=== PATIENT | male | born 1950 | race Caucasian/White ===

== ENCOUNTER → 2018-12-25 | Outpatient (CLI) | payer MEDICARE ==
--- NOTE | 2018-12-25 16:37 | XR ---
EXAMINATION TYPE: XR chest 2V DATE OF EXAM: 12/25/2018 COMPARISON: Prior chest x-ray 01/19/2016 HISTORY: Cough and congestion TECHNIQUE: Frontal and lateral views of the chest are obtained. FINDINGS: Patient is post median sternotomy. Heart size may be accentuated by technique. Prominent mil ng volumes suggest underlying COPD. There is bronchial wall thickening. Aorta is dense. No evident ai rspace disease, pneumothorax, or pleural effusion. Thoracic spondylosis is present. IMPRESSION: Correlate for bronchitis, reactive airways disease, follow-up as indicated. Additional f indings above.
== END | disposition home or self-care (01) ==
LOC: RADXRMAIN 13:51
PROVIDERS: ATTEND Internal Medicine
DX: J98.09 Other diseases of bronchus, not elsewhere classified (principal); R05 Cough
CPT/HCPCS: 71046

== ENCOUNTER → 2019-02-05 | Outpatient (CLI) | payer MEDICARE ==
--- NOTE | 2019-02-05 15:17 | XR ---
EXAMINATION TYPE: XR chest 2V DATE OF EXAM: 02/05/2019 COMPARISON: 12/25/2018 TECHNIQUE: PA and lateral views submitted. HISTORY: Shortness of breath FINDINGS: The lungs are clear and there is no pneumothorax, pleural effusion, or focal pneumonia. The heart i s enlarged and is postoperative change with interstitial pattern biapical pleural thickening. Postsur gical change left shoulder. Hypertrophic and degenerative change of the spine. Vague 3 mm nodule left upper lobe. IMPRESSION: 1. Correlate for mild CHF versus interstitial pneumonitis. 2. Vague 3 mm nodule left upper lobe.
== END | disposition home or self-care (01) ==
LOC: RADXRMAIN 14:40
PROVIDERS: ATTEND Internal Medicine
DX: R91.1 Solitary pulmonary nodule (principal); R06.02 Shortness of breath
CPT/HCPCS: 71046

== ENCOUNTER 2019-03-02 16:13 | Inpatient (IN) | payer MEDICARE ==
[2019-03-02] MEDS ORDERED: IPRATROPIUM 0.5 MG/2.5 ML NEBU INHALATION STA (16:30)
[2019-03-02] MEDS ORDERED: ALBUTEROL NEBULIZED 2.5 MG/3 ML INHALATION STA (16:30)
--- NOTE | 2019-03-02 16:38 | ED ---
General Adult HPI - General Chief complaint: Shortness of Breath Stated complaint: TENZIN Time Seen by Provider: 03/02/19 16:30 Source: patient, RN notes reviewed, old records reviewed Mode of arrival: ambulatory Limitations: no limitations - History of Present Illness Initial comments: 68-year-old male presents for evaluation of dyspnea. Patient was sent in by primary care physician for evaluation of dyspnea for the past 5 days. Patient has previous history of aortic valve replacement. Denies chest pain. He has had subjective fever and chills. He does report cough associated with his dyspnea. Denies chest pain. No history of COPD, no history of congestive heart failure. He is currently on Lasix 40 mg daily. He was seen at his primary care office today and sent to the emergency department for further evaluation. No abdominal pain, no nausea vomiting, no diarrhea. - Related Data Home Medications Medication Instructions Recorded Confirmed Cyclobenzaprine [Flexeril] 10 mg PO HS PRN 01/09/15 03/02/19 Insulin Glargine,Hum.rec.anlog 50 unit SQ QAM 01/09/15 03/02/19 [Lantus Solostar] Triamcinolone Acetonide [Nasacort] 1 spray EA NOSTRIL BID 02/06/15 03/02/19 Albuterol Sulfate [Proventil Hfa] 2 puff INHALATION RT-Q4H 03/02/19 03/02/19 Ergocalciferol [Vitamin D2 50,000 unit PO Q7D 03/02/19 03/02/19 (DRISDOL)] Febuxostat [Uloric] 80 mg PO DAILY 03/02/19 03/02/19 Fenofibrate Nanocrystallized 145 mg PO DAILY 03/02/19 03/02/19 [Tricor] Hydrocodone/Acetaminophen [[place] 1 tab PO Q6H 03/02/19 03/02/19 10-325] Metoprolol Succinate [Toprol XL] 50 mg PO BID 03/02/19 03/02/19 Multivitamins, Thera [Multivitamin 1 tab PO DAILY 03/02/19 03/02/19 (formulary)] Omeprazole 20 mg PO DAILY 03/02/19 03/02/19 Potassium Chloride ER [K-Dur 10] 10 meq PO DAILY 03/02/19 03/02/19 Simvastatin [Zocor] 20 mg PO DAILY 03/02/19 03/02/19 Valsartan 320 mg PO DAILY 03/02/19 03/02/19 Valsartan [Diovan] 320 mg PO DAILY 03/02/19 03/02/19 hydrALAZINE HCL [Apresoline] 25 mg PO BID 03/02/19 03/02/19 traMADol HCL [Ultram] 50 mg PO Q6H 03/02/19 03/02/19 Previous Rx's Medication Instructions Recorded glipiZIDE [Glucotrol] 5 mg PO AC-BID tab 02/13/15 Aspirin EC [Ecotrin Low Dose] 162 mg PO DAILY #1 tablet. 02/16/15 Ferrous Sulfate [Iron (65 MG 325 mg PO DAILY #1 tab 02/16/15 Elemental)] Furosemide [Lasix] 40 mg PO DAILY #7 tab 02/16/15 Allergies Allergy/AdvReac Type Severity Reaction Status Date / Time allopurinol Allergy Rash/Hives Verified 03/02/19 16:38 Review of Systems ROS Statement: Those systems with pertinent positive or pertinent negative responses have been documented in the HPI. ROS Other: All systems not noted in ROS Statement are negative. Past Medical History Past Medical History: Cancer, Chest Pain / Angina, CVA/TIA, Diabetes Mellitus, Hyperlipidemia, Hypertension, Myocardial Infarction ([place]), Sleep Apnea/CPAP/BIPAP, Thyroid Disorder Additional Past Medical History / Comment(s): [place] X2, LAST 06/2013. AORTIC STENOSIS. SHORT OF BREATH W/ ACTIVITY. 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 HX KIDNEY FAILURE IN PAST. HX GOUT. NEUROPATHY KIM FEET. USES C-PAP. OVERACTIVE THYROID HX. EDEMA IN LEGS. HX BOWEL RESECTION D/T CA, HAS ILEOSTOMY; HAS IRRITATION AT SITE. Last Myocardial Infarction Date:: 02/2013 History of Any Multi-Drug Resistant Organisms: None Reported Past Surgical History: Bowel Resection, Cardiac Valve Replacement, Heart Catheterization, Hernia Repair, Orthopedic Surgery Additional Past Surgical History / Comment(s): C. CATH X3. LT SHOULDER SURG. BOWEL SURG, SEV SURGERIES. aortic valve replacement 02/06/15 Past Anesthesia/Blood Transfusion Reactions: No Reported Reaction Past Psychological History: Depression Smoking Status: Never smoker Past Alcohol Use History: Occasional Past Drug Use History: Marijuana - Past Family History Mother Family Medical History: Coronary Artery Disease (CAD), Hypertension Father Family Medical History: No Reported History Additional Family Medical History / Comment(s): heart valve disorders General Exam Limitations: no limitations General appearance: alert, in distress Head exam: Present: atraumatic, normocephalic Eye exam: Present: normal appearance, PERRL ENT exam: Present: normal exam Neck exam: Present: normal inspection. Absent: tenderness, meningismus Respiratory exam: Present: respiratory distress, wheezes, rales, accessory muscle use Cardiovascular Exam: Present: normal rhythm, tachycardia GI/Abdominal exam: Present: soft. Absent: distended, tenderness, guarding, rebound Extremities exam: Present: pedal edema Neurological exam: Present: alert, oriented X3 Psychiatric exam: Present: normal affect, normal mood Skin exam: Present: warm, dry, intact. Absent: cyanosis, diaphoretic Course Vital Signs 03/02/19 03/02/19 03/02/19 16:16 16:44 16:59 Temperature 97.5 F L Pulse Rate 67 92 87 Respiratory 34 H Rate Blood Pressure 161/83 O2 Sat by Pulse 80 L Oximetry EKG Findings - EKG Comments: EKG Findings:: EKG: Sinus tachycardia left axis deviation right bundle-branch block, rate of 101, CT interval 188, QRS duration 158, QTC 529, significant change compared to previous EKG in 2015. Medical Decision Making - Medical Decision Making 68-year-old male presenting for evaluation of worsening dyspnea over the past 5 days. Patient has trace edema in the lower extremities, previous history of valve replacement. He's got bilateral wheezing and crackles on lung auscultation. EKG shows right bundle branch block which is new, no chest pain. Patient has normal CBC, no leukocytosis. CMP does show creatinine 2.23 which is elevated above baseline for this patient. He has a BNP of 1000, troponin 0.109. He was placed on BiPAP at the time of presentation. He is given IV Lasix. Case discussed with his primary care physician Dr. Rayo does recommend admission with both cardiology and pulmonology on consult, as well as initiation of heparin. This is related to the emergency department. Echo will be obtained. - Lab Data Result diagrams: 03/02/19 16:33 03/02/19 16:33 Lab Results 03/02/19 03/02/19 03/02/19 Range/Units 16:33 16:33 16:33 WBC 7.7 (3.8-10.6) k/uL RBC 5.25 (4.30-5.90) m/uL Hgb 15.7 (13.0-17.5) gm/dL Hct 46.2 (39.0-53.0) % MCV 88.1 (80.0-100.0) fL MCH 30.0 (25.0-35.0) pg MCHC 34.0 (31.0-37.0) g/dL RDW 13.8 (11.5-15.5) % Plt Count 188 (150-450) k/uL Neutrophils % 80 % Lymphocytes % 10 % Monocytes % 4 % Eosinophils % 1 % Basophils % 1 % Neutrophils # 6.1 (1.3-7.7) k/uL Lymphocytes # 0.8 L (1.0-4.8) k/uL Monocytes # 0.3 (0-1.0) k/uL Eosinophils # 0.1 (0-0.7) k/uL Basophils # 0.1 (0-0.2) k/uL Poikilocytosis Slight PT (9.0-12.0) sec INR (<1.2) APTT (22.0-30.0) sec Sodium 138 (137-145) mmol/L Potassium 3.4 L (3.5-5.1) mmol/L Chloride 101 (98-107) mmol/L Carbon Dioxide 25 (22-30) mmol/L Anion Gap 12 mmol/L BUN 39 H (9-20) mg/dL Creatinine 2.23 H (0.66-1.25) mg/dL Est GFR (CKD-EPI)AfAm 34 (>60 ml/min/1.73 sqM) Est GFR (CKD-EPI)NonAf 30 (>60 ml/min/1.73 sqM) Glucose 62 L (74-99) mg/dL Plasma Lactic Acid Huber (0.7-2.0) mmol/L Calcium 8.7 (8.4-10.2) mg/dL Magnesium 1.7 (1.6-2.3) mg/dL Total Bilirubin 0.9 (0.2-1.3) mg/dL AST 77 H (17-59) U/L ALT 34 (21-72) U/L Alkaline Phosphatase 49 (38-126) U/L Troponin I (0.000-0.034) ng/mL NT-Pro-B Natriuret Pep 1040 pg/mL Total Protein 6.4 (6.3-8.2) g/dL Albumin 3.3 L (3.5-5.0) g/dL 03/02/19 03/02/19 03/02/19 Range/Units 16:33 16:33 16:33 WBC (3.8-10.6) k/uL RBC (4.30-5.90) m/uL Hgb (13.0-17.5) gm/dL Hct (39.0-53.0) % MCV (80.0-100.0) fL MCH (25.0-35.0) pg MCHC (31.0-37.0) g/dL RDW (11.5-15.5) % Plt Count (150-450) k/uL Neutrophils % % Lymphocytes % % Monocytes % % Eosinophils % % Basophils % % Neutrophils # (1.3-7.7) k/uL Lymphocytes # (1.0-4.8) k/uL Monocytes # (0-1.0) k/uL Eosinophils # (0-0.7) k/uL Basophils # (0-0.2) k/uL Poikilocytosis PT 10.7 (9.0-12.0) sec INR 1.0 (<1.2) APTT 28.5 (22.0-30.0) sec Sodium (137-145) mmol/L Potassium (3.5-5.1) mmol/L Chloride (98-107) mmol/L Carbon Dioxide (22-30) mmol/L Anion Gap mmol/L BUN (9-20) mg/dL Creatinine (0.66-1.25) mg/dL Est GFR (CKD-EPI)AfAm (>60 ml/min/1.73 sqM) Est GFR (CKD-EPI)NonAf (>60 ml/min/1.73 sqM) Glucose (74-99) mg/dL Plasma Lactic Acid Huber 2.2 H* (0.7-2.0) mmol/L Calcium (8.4-10.2) mg/dL Magnesium (1.6-2.3) mg/dL Total Bilirubin (0.2-1.3) mg/dL AST (17-59) U/L ALT (21-72) U/L Alkaline Phosphatase (38-126) U/L Troponin I 0.109 H* (0.000-0.034) ng/mL NT-Pro-B Natriuret Pep pg/mL Total Protein (6.3-8.2) g/dL Albumin (3.5-5.0) g/dL Critical Care Time Critical Care Time: Yes Total Critical Care Time: 35 Disposition Clinical Impression: S/P aortic valve replacement, Congestive heart failure Disposition: ADMITTED IP TO THIS [facility] Condition: Stable Is patient prescribed a controlled substance at d/c from ED?: No Referrals: Navdeep Rayo MD [Primary Care Provider] - 1-2 days Decision to Admit Reason: Admit from EC Decision Date: 03/02/19 Decision Time: 17:28
[2019-03-02 16:43] LABS: Basophils # (A) 0.1 k/uL (0-0.2); Basophils % (A) 1 %; Eosinophils # (A) 0.1 k/uL (0-0.7); Eosinophils % (A) 1 %; HCT 46.2 % (39.0-53.0); HGB 15.7 gm/dL (13.0-17.5); Lymphocytes # (A) 0.8 k/uL (1.0-4.8); Lymphocytes % (A) 10 %; MCV 88.1 fL (80.0-100.0); Mean Platelet Volume 8.2; Monocytes # (A) 0.3 k/uL (0-1.0); Monocytes % (A) 4 %; Neutrophils # (A) 6.1 k/uL (1.3-7.7); Neutrophils % (A) 80 %; Platelet Count 188 k/uL (150-450); Poikilocytosis Slight; RBC 5.25 m/uL (4.30-5.90); RDW 13.8 % (11.5-15.5); WBC 7.7 k/uL (3.8-10.6)
[2019-03-02 16:54] LABS: Albumin 3.3 g/dL (3.5-5.0); Calcium 8.7 mg/dL (8.4-10.2); Magnesium 1.7 mg/dL (1.6-2.3); Partial Thromboplastin Time 28.5 sec (22.0-30.0); Potassium 3.4 mmol/L (3.5-5.1); Prothrombin Time 10.7 sec (9.0-12.0); Total Bilirubin 0.9 mg/dL (0.2-1.3); Total Protein 6.4 g/dL (6.3-8.2)
--- NOTE | 2019-03-02 17:02 | XR ---
EXAMINATION: XR chest 1V portable DATE AND TIME: 03/02/2019 4:42 PM CLINICAL INDICATION: PHH; gale TECHNIQUE: AP upright portable chest radiograph COMPARISON: 02/05/2019 FINDINGS: Sternal sutures and mediastinal clips are noted. Moderately enlarged cardiac silhouette redemonstrate d. There is a fine reticular pattern of increased density throughout the lungs, bilaterally silhouetting the pulmonary vasculature. There are also areas of ill-defined airspace opacity in the left mid and lower lung zone. The findings suggest interstitial and alveolar phase pulmonary edema, presumably car diogenic etiology. However, clinical exclusion of multifocal pneumonia will be necessary. The pleural spaces are negative. There are no abnormal gas collections. The skeletal structures and soft tissues are negative for acute findings. IMPRESSION: Radiographic findings suggest pulmonary edema.
[2019-03-02] MEDS ORDERED: FUROSEMIDE 10 MG/ML 4 ML VIAL IV STA (17:21)
[2019-03-02] MEDS ORDERED: ASPIRIN 325 MG TAB PO STA (17:23)
[2019-03-02] MEDS ORDERED: HEPARIN SODIUM,PORCINE 5,000 UNIT/ML 1 ML VIAL IV ONE (17:24)
[2019-03-02] MEDS ORDERED: HEPARIN SODIUM,PORCINE 5,000 UNIT/ML 1 ML VIAL IV PRN (17:24)
[2019-03-02] MEDS ORDERED: ACETAMINOPHEN TAB 325 MG TAB PO PRN (17:29)
[2019-03-02] MEDS ORDERED: NALOXONE 0.4 MG/ML 1 ML VIAL IV PRN (17:29)
[2019-03-02] MEDS: HEPARIN SOD,PORK IN 0.45% NACL 25,000 UNIT in 0.45% NACL 1 250ML.BAG IV SCH (17:55)
[2019-03-02] MEDS ORDERED: DEXTROSE 50% SYRINGE 50 ML IVP ONE (22:35)
[2019-03-02 22:43] LABS: Glucose,Whole Blood 38 mg/dL (75-99)
[2019-03-02 22:55] LABS: Glucose,Whole Blood 72 mg/dL (75-99)
[2019-03-03] MEDS ORDERED: CYCLOBENZAPRINE 10 MG TAB PO PRN (00:57)
[2019-03-03] MEDS ORDERED: traMADol 50 MG TAB PO PRN (01:00)
[2019-03-03] MEDS ORDERED: ERGOCALCIFEROL 50,000 UNIT CAP PO SCH (01:00)
[2019-03-03] MEDS ORDERED: HYDROcodone/APAP 10-325MG 1 EACH TAB PO SCH (01:00)
[2019-03-03] MEDS ORDERED: DEXTROSE 50% SYRINGE 50 ML IVP ONE ×2 (02:02→06:30)
[2019-03-03 02:03] LABS: Glucose,Whole Blood 45 mg/dL (75-99)
[2019-03-03 02:24] LABS: Glucose,Whole Blood 149 mg/dL (75-99)
[2019-03-03] MEDS: ALBUTEROL NEBULIZED 2.5 MG/3 ML INHALATION SCH ×6 (04:14→23:13)
[2019-03-03 04:19] LABS: Basophils # (A) 0.1 k/uL (0-0.2); Basophils % (A) 1 %; Eosinophils # (A) 0.1 k/uL (0-0.7); Eosinophils % (A) 1 %; HCT 43.1 % (39.0-53.0); HGB 14.3 gm/dL (13.0-17.5); Lymphocytes # (A) 1.1 k/uL (1.0-4.8); Lymphocytes % (A) 15 %; MCH 29.7 pg (25.0-35.0); MCHC 33.2 g/dL (31.0-37.0); MCV 89.6 fL (80.0-100.0); Mean Platelet Volume 8.1; Monocytes # (A) 0.4 k/uL (0-1.0); Monocytes % (A) 5 %; Neutrophils % (A) 73 %; Platelet Count 177 k/uL (150-450); Poikilocytosis Slight; RBC 4.81 m/uL (4.30-5.90); RDW 13.9 % (11.5-15.5); WBC 6.9 k/uL (3.8-10.6)
[2019-03-03 06:13] LABS: Glucose,Whole Blood 56 mg/dL (75-99)
[2019-03-03] MEDS: INSULIN ASPART (NovoLOG) 100 UNIT/ML VIAL SQ SCH ×4 (06:17→20:38)
[2019-03-03] MEDS: glipiZIDE 5 MG TAB PO SCH ×2 (06:17→17:17)
[2019-03-03] MEDS: PANTOPRAZOLE 40 MG TABLET PO SCH (06:21)
[2019-03-03 06:52] LABS: Glucose,Whole Blood 97 mg/dL (75-99)
[2019-03-03] MEDS: POTASSIUM CHLORIDE ER 10 MEQ TAB.ER.PRT PO SCH (08:51)
[2019-03-03] MEDS: FUROSEMIDE 10 MG/ML 4 ML VIAL IV SCH ×2 (08:51→20:38)
[2019-03-03] MEDS: MULTIVITAMINS, THERA 1 EACH TAB PO SCH (08:51)
[2019-03-03] MEDS: ATORVASTATIN 10 MG TAB PO SCH (08:52)
[2019-03-03] MEDS: hydrALAZINE HCL 25 MG TAB PO SCH ×2 (08:52→20:38)
[2019-03-03] MEDS: Febuxostat [Uloric] 80 MG PO SCH (08:52)
[2019-03-03] MEDS: FERROUS SULFATE 325 MG TAB PO SCH (08:52)
[2019-03-03] MEDS: FENOFIBRATE 160 MG TAB PO SCH (08:52)
[2019-03-03] MEDS: METOPROLOL SUCCINATE (ER) 50 MG TAB.ER.24H PO SCH ×2 (08:52→20:38)
[2019-03-03] MEDS: ERGOCALCIFEROL 50,000 UNIT CAP PO SCH (08:53)
[2019-03-03] MEDS ORDERED: VALSARTAN 320 MG PO SCH (09:00)
[2019-03-03] MEDS ORDERED: VALSARTAN 160 MG TAB PO SCH (09:00)
[2019-03-03] MEDS: FLUTICASONE 50MCG/SPRAY NASAL 16GM EA NOSTRIL SCH ×2 (09:04→20:37)
[2019-03-03 09:28] LABS: Albumin 2.8 g/dL (3.5-5.0); Calcium 8.3 mg/dL (8.4-10.2); Potassium 3.5 mmol/L (3.5-5.1); Total Bilirubin 0.6 mg/dL (0.2-1.3); Total Protein 5.5 g/dL (6.3-8.2)
--- NOTE | 2019-03-03 10:29 | P.HPIM ---
History of Present Illness H&P Date: 03/03/19 This is a 68-year-old male patient who presented to the ER with complaints of increased shortness of breath for the past 5 days. Patient reports that he has been coughing. Patient denies fever. Patient has a past medical history of aortic valve replacement thousand [address] Styles, chest pain, CVA, diabetes mellitus, hyperlipidemia, hypertension, myocardial infarction, sleep apnea requiring CPAP and hypothyroidism. Chest x-ray completed showing radiographic findings suggest pulmonary edema. BNP elevated at 1040. Troponins also elevated 0.105, 0.096. EKG completed showing sinus tachycardia with premature atrial complexes. Left axis deviation. Patient started on heparin drip. Patient also started on IV Lasix 40 mg every 12 hours. Patient's creatinine elevated 2.41 and bun 43. Pulmonary, cardiology and nephrology services have been consulted. At this time patient is still complaining of shortness breath. 2-D echo has been ordered. Patient denies chest pain. Patient denies nausea vomiting or diarrhea. Patient denies any urinary burning or frequency. Review of Systems please refer to HPI otherwise unremarkable Past Medical History Past Medical History: Cancer, Chest Pain / Angina, CVA/TIA, Diabetes Mellitus, Hyperlipidemia, Hypertension, Myocardial Infarction ([place]), Sleep Apnea/CPAP/BIPAP, Thyroid Disorder Additional Past Medical History / Comment(s): [place] X2, LAST 06/2013. AORTIC STENOSIS. = SHORT OF BREATH W/ ACTIVITY. 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 HX KIDNEY FAILURE IN PAST. HX GOUT. NEUROPATHY KIM FEET. USES C-PAP. OVERACTIVE THYROID HX. EDEMA IN LEGS. HX BOWEL RESECTION D/T CA, HAS ILEOSTOMY, IRRITATION AT SITE. Last Myocardial Infarction Date:: 02/2013 History of Any Multi-Drug Resistant Organisms: None Reported Past Surgical History: Bowel Resection, Cardiac Valve Replacement, Heart Catheterization, Hernia Repair, Orthopedic Surgery Additional Past Surgical History / Comment(s): CARDIAC CATH X3. LT SHOULDER SURG. BOWEL SURG,. aortic valve replacement 02/06/15 Past Anesthesia/Blood Transfusion Reactions: No Reported Reaction Past Psychological History: Depression Smoking Status: Never smoker Past Alcohol Use History: Occasional Past Drug Use History: None Reported - Past Family History Mother Family Medical History: Coronary Artery Disease (CAD), Hypertension Father Family Medical History: No Reported History Additional Family Medical History / Comment(s): heart valve disorders Medications and Allergies Home Medications Medication Instructions Recorded Confirmed Type Cyclobenzaprine [Flexeril] 10 mg PO HS PRN 01/09/15 03/02/19 History Insulin Glargine,Hum.rec.anlog 50 unit SQ QAM 01/09/15 03/02/19 History [Lantus Solostar] Triamcinolone Acetonide [Nasacort] 1 spray EA NOSTRIL BID 02/06/15 03/02/19 History glipiZIDE [Glucotrol] 5 mg PO AC-BID tab 02/13/15 03/02/19 Rx Aspirin EC [Ecotrin Low Dose] 162 mg PO DAILY #1 tablet.dr 02/16/15 03/02/19 Rx Ferrous Sulfate [Iron (65 MG 325 mg PO DAILY #1 tab 02/16/15 03/02/19 Rx Elemental)] Furosemide [Lasix] 40 mg PO DAILY #7 tab 02/16/15 03/02/19 Rx Albuterol Sulfate [Proventil Hfa] 2 puff INHALATION RT-Q4H 03/02/19 03/02/19 History Ergocalciferol [Vitamin D2 50,000 unit PO Q7D 03/02/19 03/02/19 History (MELVIN)] Febuxostat [Uloric] 80 mg PO DAILY 03/02/19 03/02/19 History Fenofibrate Nanocrystallized 145 mg PO DAILY 03/02/19 03/02/19 History [Tricor] Hydrocodone/Acetaminophen [[place] 1 tab PO Q6H 03/02/19 03/02/19 History 10-325] Metoprolol Succinate [Toprol XL] 50 mg PO BID 03/02/19 03/02/19 History Multivitamins, Thera [Multivitamin 1 tab PO DAILY 03/02/19 03/02/19 History (formulary)] Omeprazole 20 mg PO DAILY 03/02/19 03/02/19 History Potassium Chloride ER [K-Dur 10] 10 meq PO DAILY 03/02/19 03/02/19 History Simvastatin [Zocor] 20 mg PO DAILY 03/02/19 03/02/19 History Valsartan [Diovan] 320 mg PO DAILY 03/02/19 03/02/19 History hydrALAZINE HCL [Apresoline] 25 mg PO BID 03/02/19 03/02/19 History traMADol HCL [Ultram] 50 mg PO Q6H 03/02/19 03/02/19 History Allergies Allergy/AdvReac Type Severity Reaction Status Date / Time allopurinol Allergy Rash/Hives Verified 03/02/19 16:38 Physical Exam Vitals: Vital Signs Temp Pulse Pulse Resp BP BP Pulse Ox 03/03/19 08:00 68 22 134/77 92 L 03/03/19 04:34 87 03/03/19 04:15 87 03/03/19 03:09 97.3 F L 81 32 H 149/80 96 03/02/19 23:45 98.2 F 83 28 H 147/81 97 03/02/19 21:32 97.9 F 75 28 H 114/75 96 03/02/19 20:09 75 30 H 116/78 96 03/02/19 19:15 89 28 H 130/80 96 03/02/19 18:16 87 26 H 90/57 94 L 03/02/19 17:24 116/90 03/02/19 16:59 87 03/02/19 16:44 92 03/02/19 16:16 97.5 F L 67 34 H 161/83 80 L Intake and Output 03/02/19 03/03/19 03/03/19 22:59 06:59 14:59 Intake Total 106.323 Output Total 400 Balance -293.677 Intake: Intake, IV Titration 106.323 Amount Heparin Sod,Pork in 0.45% 106.323 NaCl 25,000 unit In 0.45 % NaCl 1 250ml.bag @ 7. 735 UNITS/KG/HR 9.999 mls /hr IV .Q24H [facility] Rx#: [id number] Output: Urine 400 Other: Voiding Method Urinal # Voids 2 Weight 129.274 kg 121 kg Head normocephalic Neck supple Lungs diminished bilaterally Heart regular rate and rhythm S1-S2, no rub or gallop Abdomen is soft nontender nondistended positive bowel sounds no hepatosple nomegaly Extremities no edema. billateral lower extremity erythema Neuro alert and orientated to 3 Results CBC & Chem 7: 03/03/19 04:01 03/03/19 04:01 Labs: Abnormal Lab Results - Last 24 Hours (Table) 03/02/19 03/02/19 03/02/19 Range/Units 16:33 16:33 16:33 Lymphocytes # 0.8 L (1.0-4.8) k/uL APTT (22.0-30.0) sec Potassium 3.4 L (3.5-5.1) mmol/L BUN 39 H (9-20) mg/dL Creatinine 2.23 H (0.66-1.25) mg/dL Glucose 62 L (74-99) mg/dL POC Glucose (mg/dL) (75-99) mg/dL Plasma Lactic Acid Huber (0.7-2.0) mmol/L Calcium (8.4-10.2) mg/dL AST 77 H (17-59) U/L Troponin I 0.109 H* (0.000-0.034) ng/mL Total Protein (6.3-8.2) g/dL Albumin 3.3 L (3.5-5.0) g/dL 03/02/19 03/02/19 03/02/19 Range/Units 16:33 22:34 22:45 Lymphocytes # (1.0-4.8) k/uL APTT (22.0-30.0) sec Potassium (3.5-5.1) mmol/L BUN (9-20) mg/dL Creatinine (0.66-1.25) mg/dL Glucose (74-99) mg/dL POC Glucose (mg/dL) 38 L (75-99) mg/dL Plasma Lactic Acid Huber 2.2 H* (0.7-2.0) mmol/L Calcium (8.4-10.2) mg/dL AST (17-59) U/L Troponin I 0.105 H* (0.000-0.034) ng/mL Total Protein (6.3-8.2) g/dL Albumin (3.5-5.0) g/dL 03/02/19 03/03/19 03/03/19 Range/Units 22:53 02:00 02:22 Lymphocytes # (1.0-4.8) k/uL APTT (22.0-30.0) sec Potassium (3.5-5.1) mmol/L BUN (9-20) mg/dL Creatinine (0.66-1.25) mg/dL Glucose (74-99) mg/dL POC Glucose (mg/dL) 72 L 45 L 149 H (75-99) mg/dL Plasma Lactic Acid Huber (0.7-2.0) mmol/L Calcium (8.4-10.2) mg/dL AST (17-59) U/L Troponin I (0.000-0.034) ng/mL Total Protein (6.3-8.2) g/dL Albumin (3.5-5.0) g/dL 03/03/19 03/03/19 03/03/19 Range/Units 04:01 04:01 04:01 Lymphocytes # (1.0-4.8) k/uL APTT 42.0 H (22.0-30.0) sec Potassium (3.5-5.1) mmol/L BUN 43 H (9-20) mg/dL Creatinine 2.41 H (0.66-1.25) mg/dL Glucose 73 L (74-99) mg/dL POC Glucose (mg/dL) (75-99) mg/dL Plasma Lactic Acid Huber (0.7-2.0) mmol/L Calcium 8.3 L (8.4-10.2) mg/dL AST 80 H (17-59) U/L Troponin I 0.096 H* (0.000-0.034) ng/mL Total Protein 5.5 L (6.3-8.2) g/dL Albumin 2.8 L (3.5-5.0) g/dL 03/03/19 Range/Units 06:11 Lymphocytes # (1.0-4.8) k/uL APTT (22.0-30.0) sec Potassium (3.5-5.1) mmol/L BUN (9-20) mg/dL Creatinine (0.66-1.25) mg/dL Glucose (74-99) mg/dL POC Glucose (mg/dL) 56 L (75-99) mg/dL Plasma Lactic Acid Huber (0.7-2.0) mmol/L Calcium (8.4-10.2) mg/dL AST (17-59) U/L Troponin I (0.000-0.034) ng/mL Total Protein (6.3-8.2) g/dL Albumin (3.5-5.0) g/dL Thrombosis Risk Factor Assmnt - Choose All That Apply Any of the Below Risk Factors Present?: Yes Each Factor Represents 1 point: Heart failure (<1month), Medical pt on bed rest, Obesity (BMI >25) Other Risk Factors: Yes Each Risk Factor Represents 2 Points: Age 61-74 years Each Risk Factor Represents 3 Points: History of DVT/PE Other congenital or acquired thrombophilia - If yes, enter type in comment: No Thrombosis Risk Factor Assessment Total Risk Factor Score: 8 Thrombosis Risk Factor Assessment Level: High Risk Assessment and Plan Assessment: 1. Increased shortness of breath related to CHF exacerbation. Chest x-ray completed showing radiographic findings suggest pulmonary edema. 2-D echo ordered. Cardiology service is consulted 2. Elevated troponins. Initial troponin 0.105, 0.096. Cardiology services have been consulted. 3. Acute kidney injury. Creatinine elevated 2.41 bun 43. Nephrology services have been consulted. 4. Diabetes mellitus type 2. scale insulin ordered. 5. History of aortic valve replacement in 2014 6. History of CVA 7. History of hyperlipidemia 8. History of essential hypertension 9. History of sleep apnea requiring CPAP machine at home 10. Bilateral lower extremity erythema DVT prophylaxis heparin gtt. GI prophylaxis protonix Time with Patient: Greater than 30 (Greater than 60% of the total time spent in counseling and coordination of care. I performed an examination of the patient and discussed their management with the Nurse Practitioner. I have reviewed the Nurse Practitioner's notes and agree with the documented findings and plan of care)
--- NOTE | 2019-03-03 11:39 | CDI ---
Documentation Clarification Form Date: 03/03/2019 11:09:29 AM From: Liana Fairbanks RN CCDS Admit Date: 03/02/2019 5:29:00 PM Patient Name: Faisal Andrade Visit Number: [id number] Discharge Date: ATTENTION: The Clinical Documentation Specialists (CDI) and [facility] Coding Staff appreciate your assistance in clarifying documentation. Please respond to the clarification below the line at the bottom and electronically sign. The CDI & [facility] Coding staff will review the response and follow-up if needed. Please note: Queries are made part of the Legal Health Record. If you have any questions, please contact the author of this message via ITS. Dr. Navdeep Rayo The patient presented with increased shortness of breath. History/Risk Factors: 68 year old male presents to the ED with increased shortness of breath for the past 5 days. Medical history Aortic Valve replacement 2014; Chest pain, CVA, DM, Hyperlipidemia , HTN, [place] , Sleep Apnea requiring CPAP; Clinical Indicators: CXR Pulmonary Edema Vital signs: 161/83 67 97.5 34 80% room air. Lung/Breathing assessment: diminished bilaterally Lactic acid 2.2, Treatment: Breathing tx Ventolin, Atrovent Oxygen: BiPap In your professional opinion, can you please clarify if these findings signify one of the following conditions? * Acute Respiratory Failure With hypoxia? (pO2 <60 mm Hg or SpO2 <91% on room air * Other Diagnosis, please specify * Unable to determine (Last Revision: January 2018) acute hypoxic respiratory failure MTDD
[2019-03-03 12:01] LABS: Glucose,Whole Blood 178 mg/dL (75-99)
--- NOTE | 2019-03-03 12:07 | ECHOF ---
Referral Reason:CHF MEASUREMENTS -------- HEIGHT: 167.6 cm WEIGHT: 120.7 kg BP: 149/80 RVIDd: 4.9 cm (< 3.3) IVSd: 1.7 cm (0.6 - 1.1) LVIDd: 4.3 cm (3.9 - 5.3) LVPWd: 1.4 cm (0.6 - 1.1) IVSs: 2.0 cm LVIDs: 3.1 cm LVPWs: 2.0 cm Ao Diam: 2.0 cm (2.0 - 3.7) LA Diam: 6.7 cm (2.7 - 3.8) MV EXCURSION: 10.516 mm (> 18.000) MV EF SLOPE: 56 mm/s (70 - 150) EPSS: 0.5 cm MV E Morales: 1.32 m/s MV DecT: 323 ms MV A Morales: 1.14 m/s MV E/A Ratio: 1.18 AV maxP.50 mmHg AV meanP.45 mmHg RAP: 15.00 mmHg RVSP: 84.64 mmHg FINDINGS -------- Undetermined rhythm. This was a techncally difficult study with suboptimal views, , Lumason utilized for enhancement of im ages. The left ventricular size is normal. There is mild concentric left ventricular hypertrophy. Overa ll left ventricular systolic function is low-normal with, an EF between 50 - 55 %. The right ventricle is severely enlarged. The right ventricular septal wall is flattened in diastol e and systole which is consistent with right ventricular volume and pressure overload. The left atrium is markedly dilated. The right atrial size is normal. 5.0mg OF Lumason UTLIZED: 2 OR MORE WALL SEGMENTS NOT VISUALIZED. Peak/mean gradient across the Aortic Valve is 28.50mmHg / 15.45mmHg. Bioprosthetic Aortic Valve. Mild mitral annular calcification present. Mild mitral regurgitation is present. The peak and me an MV gradients are 12.78mmHg 5.47mmHg as measured by doppler. The aortic root size is normal. Normal inferior vena cava with normal inspiratory collapse consistent with estimated right atrial pre ssure of 5 mmHg. There is no pericardial effusion. CONCLUSIONS -------- 1. This was a techncally difficult study with suboptimal views, , Lumason utilized for enhancement of images. 2. The left ventricular size is normal. 3. There is mild concentric left ventricular hypertrophy. 4. Overall left ventricular systolic function is low-normal with, an EF between 50 - 55 %. 5. The right ventricle is severely enlarged. 6. The right ventricular septal wall is flattened in diastole and systole which is consistent with r ight ventricular volume and pressure overload. 7. The left atrium is markedly dilated. 8. The right atrial size is normal. 9. 5.0mg OF Lumason UTLIZED: 2 OR MORE WALL SEGMENTS NOT VISUALIZED. 10. Interatrial Septum not well visulized. 11. Peak/mean gradient across the Aortic Valve is 28.50mmHg / 15.45mmHg. 12. Bioprosthetic Aortic Valve. 13. Mild mitral annular calcification present. 14. Mild mitral regurgitation is present. 15. The peak and mean MV gradients are 12.78mmHg 5.47mmHg as measured by doppler. 16. The aortic root size is normal. 17. Normal inferior vena cava with normal inspiratory collapse consistent with estimated right atrial pressure of 5 mmHg. 18. There is no pericardial effusion. OFFICIAL GREETER: Darlene Rod RDCS
--- NOTE | 2019-03-03 12:14 | P.CRDCN ---
History of Present Illness Consult date: 03/03/19 Requesting physician: Navdeep Rayo Consult reason: hypertension, shortness of breath Chief complaint: Shortness of breath History of present illness: This is a 68-year-old gentleman with history of aortic valve replacement in 2014, prior CVA, diabetes, hypertension, hyperlipidemia, prior CVA, sleep apnea requiring CPAP, hypothyroidism, who presents to the hospital with symptoms of progressively worsening shortness of breath over a three-week duration. According to the patient, his blood pressure has been running very high as an outpatient, initially his symptoms started with cough and his CY inhibitor was discontinued. Patient was then started on 2 different blood pressure medications, on follow-up with his physician, he stated that his breathing was consistently becoming worse, he came to the emergency room then for further evaluation and treatment. Chest x-ray on arrival here showed pulmonary edema, and multifocal pneumonia possible. EKG on presentation here showed a sinus tachycardia with a right bundle branch block pattern and nonspecific ST-T wave changes. Blood pressure on arrival here 160/80 with a heart rate in the 60s, respirations 34, 80% on room air. White blood cell count 6.9, hemoglobin 14.3, platelet count 177. Sodium 139, potassium 3.5, BUN 43 and creatinine 2.4. Patient's creatinine yesterday 2.2, in 2016 0.9. Troponins 0.10, 0.10, 0.09. Past Medical History Past Medical History: Cancer, Chest Pain / Angina, CVA/TIA, Diabetes Mellitus, Hyperlipidemia, Hypertension, Myocardial Infarction (SD), Sleep Apnea/CPAP/BIPAP, Thyroid Disorder Additional Past Medical History / Comment(s): SD X2, LAST 06/2013. AORTIC STENOSIS. = SHORT OF BREATH W/ ACTIVITY. 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 HX KIDNEY FAILURE IN PAST. HX GOUT. NEUROPATHY KIM FEET. USES C-PAP. OVERACTIVE THYROID HX. EDEMA IN LEGS. HX BOWEL RESECTION D/T CA, HAS ILEOSTOMY, IRRITATION AT SITE. Last Myocardial Infarction Date:: 02/2013 History of Any Multi-Drug Resistant Organisms: None Reported Past Surgical History: Bowel Resection, Cardiac Valve Replacement, Heart Catheterization, Hernia Repair, Orthopedic Surgery Additional Past Surgical History / Comment(s): CARDIAC CATH X3. LT SHOULDER SURG. BOWEL SURG,. aortic valve replacement 02/06/15 Past Anesthesia/Blood Transfusion Reactions: No Reported Reaction Past Psychological History: Depression Smoking Status: Never smoker Past Alcohol Use History: Occasional Past Drug Use History: None Reported - Past Family History Mother Family Medical History: Coronary Artery Disease (CAD), Hypertension Father Family Medical History: No Reported History Additional Family Medical History / Comment(s): heart valve disorders Medications and Allergies Home Medications Medication Instructions Recorded Confirmed Type Cyclobenzaprine [Flexeril] 10 mg PO HS PRN 01/09/15 03/02/19 History Insulin Glargine,Hum.rec.anlog 50 unit SQ QAM 01/09/15 03/02/19 History [Lantus Solostar] Triamcinolone Acetonide [Nasacort] 1 spray EA NOSTRIL BID 02/06/15 03/02/19 History glipiZIDE [Glucotrol] 5 mg PO AC-BID tab 02/13/15 03/02/19 Rx Aspirin EC [Ecotrin Low Dose] 162 mg PO DAILY #1 tablet.dr 02/16/15 03/02/19 Rx Ferrous Sulfate [Iron (65 MG 325 mg PO DAILY #1 tab 02/16/15 03/02/19 Rx Elemental)] Furosemide [Lasix] 40 mg PO DAILY #7 tab 02/16/15 03/02/19 Rx Albuterol Sulfate [Proventil Hfa] 2 puff INHALATION RT-Q4H 03/02/19 03/02/19 History Ergocalciferol [Vitamin D2 50,000 unit PO Q7D 03/02/19 03/02/19 History (MELVIN)] Febuxostat [Uloric] 80 mg PO DAILY 03/02/19 03/02/19 History Fenofibrate Nanocrystallized 145 mg PO DAILY 03/02/19 03/02/19 History [Tricor] Hydrocodone/Acetaminophen [[place] 1 tab PO Q6H 03/02/19 03/02/19 History 10-325] Metoprolol Succinate [Toprol XL] 50 mg PO BID 03/02/19 03/02/19 History Multivitamins, Thera [Multivitamin 1 tab PO DAILY 03/02/19 03/02/19 History (formulary)] Omeprazole 20 mg PO DAILY 03/02/19 03/02/19 History Potassium Chloride ER [K-Dur 10] 10 meq PO DAILY 03/02/19 03/02/19 History Simvastatin [Zocor] 20 mg PO DAILY 03/02/19 03/02/19 History Valsartan [Diovan] 320 mg PO DAILY 03/02/19 03/02/19 History hydrALAZINE HCL [Apresoline] 25 mg PO BID 03/02/19 03/02/19 History traMADol HCL [Ultram] 50 mg PO Q6H 03/02/19 03/02/19 History Allergies Allergy/AdvReac Type Severity Reaction Status Date / Time allopurinol Allergy Rash/Hives Verified 03/02/19 16:38 Physical Exam Vitals: Vital Signs Temp Pulse Pulse Resp BP BP Pulse Ox 03/03/19 11:45 88 03/03/19 11:34 84 03/03/19 08:00 68 22 134/77 92 L 03/03/19 04:34 87 03/03/19 04:15 87 03/03/19 03:09 97.3 F L 81 32 H 149/80 96 03/02/19 23:45 98.2 F 83 28 H 147/81 97 03/02/19 21:32 97.9 F 75 28 H 114/75 96 03/02/19 20:09 75 30 H 116/78 96 03/02/19 19:15 89 28 H 130/80 96 03/02/19 18:16 87 26 H 90/57 94 L 03/02/19 17:24 116/90 03/02/19 16:59 87 03/02/19 16:44 92 03/02/19 16:16 97.5 F L 67 34 H 161/83 80 L Intake and Output 03/02/19 03/03/19 03/03/19 22:59 06:59 14:59 Intake Total 106.323 Output Total 400 300 Balance -293.677 -300 Intake: Intake, IV Titration 106.323 Amount Heparin Sod,Pork in 0.45% 106.323 NaCl 25,000 unit In 0.45 % NaCl 1 250ml.bag @ 7. 735 UNITS/KG/HR 9.999 mls /hr IV .Q24H [facility] Rx#: [id number] Output: Urine 400 Stool 300 Other: Voiding Method Urinal # Voids 2 # Bowel Movements 1 Weight 129.274 kg 121 kg 121 kg PHYSICAL EXAMINATION: GENERAL: 68-year-old gentleman in no acute distress at the time of my examination HEENT: Head is atraumatic, normocephalic. Pupils equal, round. Sclera anicteric. Conjunctiva are clear. Mucous membranes of the mouth are moist. Neck is supple. There is elevated jugular venous pressure. No carotid bruit is heard. HEART EXAMINATION: Heart S1 and S2, tachycardic, systolic murmur heard CHEST EXAMINATION: Lungs reveal decreased air exchange throughout, minimal air entry ABDOMEN: Soft, obese, nontender. Bowel sounds are heard. No organomegaly noted. EXTREMITIES: 1+ peripheral pulses with trace evidence of peripheral edema, bilateral ear erythema, chronic venous stasis. NEUROLOGIC patient is awake, alert and oriented 3 . . Results 03/04/19 05:35 03/04/19 05:35 Cardiac Enzymes 03/02/19 03/02/19 03/02/19 Range/Units 16:33 16:33 22:45 AST 77 H (17-59) U/L Troponin I 0.109 H* 0.105 H* (0.000-0.034) ng/mL 03/03/19 03/03/19 Range/Units 04:01 04:01 AST 80 H (17-59) U/L Troponin I 0.096 H* (0.000-0.034) ng/mL Coagulation 03/02/19 03/03/19 03/03/19 Range/Units 16:33 04:01 11:02 PT 10.7 (9.0-12.0) sec APTT 28.5 42.0 H 43.5 H (22.0-30.0) sec CBC 03/02/19 03/03/19 Range/Units 16:33 04:01 WBC 7.7 6.9 (3.8-10.6) k/uL RBC 5.25 4.81 (4.30-5.90) m/uL Hgb 15.7 14.3 (13.0-17.5) gm/dL Hct 46.2 43.1 (39.0-53.0) % Plt Count 188 177 (150-450) k/uL Comprehensive Metabolic Panel 03/02/19 03/03/19 Range/Units 16:33 04:01 Sodium 138 139 (137-145) mmol/L Potassium 3.4 L 3.5 (3.5-5.1) mmol/L Chloride 101 102 (98-107) mmol/L Carbon Dioxide 25 28 (22-30) mmol/L BUN 39 H 43 H (9-20) mg/dL Creatinine 2.23 H 2.41 H (0.66-1.25) mg/dL Glucose 62 L 73 L (74-99) mg/dL Calcium 8.7 8.3 L (8.4-10.2) mg/dL AST 77 H 80 H (17-59) U/L ALT 34 38 (21-72) U/L Alkaline Phosphatase 49 46 (38-126) U/L Total Protein 6.4 5.5 L (6.3-8.2) g/dL Albumin 3.3 L 2.8 L (3.5-5.0) g/dL Current Medications Generic Name Dose Route Start Last Admin Trade Name Freq PRN Reason Stop Dose Admin Acetaminophen 650 mg 03/02/19 17:29 Tylenol Tab PO Q6HR PRN Mild Pain or Fever > 100.5 Hydrocodone Bitart/Acetaminophen 1 each 03/03/19 01:14 [place] 10 PO Q6H PRN Mild to Moderate Pain Albuterol Sulfate 2.5 mg 03/03/19 04:00 03/03/19 11:33 Ventolin Nebulized INHALATION 2.5 mg RT-Q4H JOSE Administration Atorvastatin Calcium 10 mg 03/03/19 09:00 03/03/19 08:52 Lipitor PO 10 mg DAILY JOSE Administration Cyclobenzaprine HCl 10 mg 03/03/19 00:57 Flexeril PO HS PRN Muscle Pain Ergocalciferol 50,000 unit 03/03/19 09:00 03/03/19 08:53 Vitamin D2 PO Not Given Q7D JOSE Fenofibrate 160 mg 03/03/19 09:00 03/03/19 08:52 Lofibra PO 160 mg DAILY JOSE Administration Ferrous Sulfate 325 mg 03/03/19 09:00 03/03/19 08:52 Feosol PO 325 mg DAILY JOSE Administration Fluticasone Propionate 1 spray 03/03/19 09:00 03/03/19 09:04 Flonase Nasal [place]ar[place] EA NOSTRIL Not Given BID JOSE Furosemide 40 mg 03/03/19 09:00 03/03/19 08:51 Lasix IV 40 mg Q12HR JOSE Administration Glipizide 5 mg 03/03/19 07:30 03/03/19 06:17 Glucotrol PO Not Given AC-BID JOSE Heparin Sodium (Porcine) 0 unit 03/02/19 17:24 Heparin IV PER PROTOCOL PRN Low PTT Protocol Hydralazine HCl 25 mg 03/03/19 09:00 03/03/19 08:52 Apresoline PO 25 mg BID JOSE Administration Heparin Sodium/Sodium Chloride 250 mls @ 9.999 mls/hr 03/02/19 17:30 03/03/19 04:33 25,000 unit/ Sodium Chloride IV 9.735 units/kg/hr .Q24H JOSE 12.585 mls/hr Titration Protocol 7.735 UNITS/KG/HR Insulin Aspart 0 unit 03/03/19 07:30 03/03/19 06:17 Novolog SQ Not Given ACHS [facility] Protocol Metoprolol Succinate 50 mg 03/03/19 09:00 03/03/19 08:52 Toprol Xl PO 50 mg BID JOSE Administration Multivitamins 1 each 03/03/19 09:00 03/03/19 08:51 Theragran PO 1 each DAILY [facility] Administration Naloxone HCl 0.2 mg 03/02/19 17:29 Narcan IV Q2M PRN Opioid Reversal Febuxostat [Uloric] 80 mg 03/03/19 09:00 03/03/19 08:52 80 Mg PO Not Given DAILY JOSE Pantoprazole Sodium 40 mg 03/03/19 07:30 03/03/19 06:21 Protonix PO 40 mg DAILY@0730 JOSE Administration Potassium Chloride 10 meq 03/03/19 09:00 03/03/19 08:51 K-Dur 10 PO 10 meq DAILY JOSE Administration Tramadol HCl 50 mg 03/03/19 01:00 Ultram PO Q6H PRN Pain Intake and Output 03/02/19 03/03/19 03/03/19 22:59 06:59 14:59 Intake Total 106.323 Output Total 400 300 Balance -293.677 -300 Intake: Intake, IV Titration 106.323 Amount Heparin Sod,Pork in 0.45% 106.323 NaCl 25,000 unit In 0.45 % NaCl 1 250ml.bag @ 7. 735 UNITS/KG/HR 9.999 mls /hr IV .Q24H [facility] Rx#: [id number] Output: Urine 400 Stool 300 Other: Voiding Method Urinal # Voids 2 # Bowel Movements 1 Weight 129.274 kg 121 kg 121 kg Patient Weight 03/04/19 06:59 Weight 121 kg 03/03/19 04:01 03/03/19 04:01 EKG Interpretations (text) EKG shows sinus tachycardia with a right bundle branch block pattern and nonspecific ST-T wave changes Assessment and Plan Plan: Assessment and plan #1 symptoms of progressively worsening shortness of breath, chest x-ray suggests pulmonary edema, CHF exacerbation diastolic acute on chronic, on IV Lasix #2 acute kidney injury, creatinine 2.4, nephrology consulted #3 diabetes #4 history of aortic valve replacement #5 hypertension #6 hyperlipidemia #7 sleep apnea #8 abnormal troponins, could be secondary to abnormal renal function, and hypoxia, no significant rise and fall pattern to suggest acute coronary syndrome Plan We will obtain an echocardiogram with Doppler study. Because of the patient's abnormality in troponin, with associated tachycardia and hypoxia on presentation, we will request a d-dimer to rule out the possibility of pulmonary embolism. Continue IV Lasix. We will also attempt to get some old records, patient states he has not seen Dr. Bolaños in the office for several years. DNP note has been reviewed, I agree with a documented findings and plan of care. Patient was seen and examined.
--- NOTE | 2019-03-03 14:45 | P.CNPUL ---
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 Patient does have some baseline shortness of breath, however since last he is been experiencing increased difficulty breathing, denied any chest pain, he states his blood pressure has been elevated and Dr. Rayo has been making adjustments to his blood pressure medications, he was recently taken off the lisinopril related to dry cough and was started on h ydralazine. He denies any weight gain, has chronic lower extremity edema, with chronic and changes, dry skin, with the dry patches present on lower legs. He states he did feel feverish but did not take his temperature, his appetite has been poor, and he has had decreased oral intake, he wasn't feeling hungry. He states he used to see Dr. Bolaños however have not seen him in the last 2 years. Additionally patient stopped taking his Lasix about a month ago related to frequent trips to the bathroom, and was recently restarted on it by Dr. Rayo. Chest x-ray was completed showing findings of pulmonary edema. EKG showed sinus tachycardia with PACs and right bundle branch block, ST depression and T-wave inversion in the inferior and lateral leads. Lab work did not show any leukocytosis, white blood cell, 6.9, hemoglobin of 14.3, d-dimer was mildly elevated at 1.48, electrolytes were within normal limits, renal profile was abnormal with BUN of 43 and creatinine of 2.41, and it had been within normal limits on previous blood work 2015. Mild elevation of troponins at 0.109, 0.105, 0.096, and proBNP 1040. Repeat BNP this morning down to 787. During my evaluation patient is seen sitting up on the edge of the bed, he is quite short of breath even with conversation, on 4 L of oxygen with a pulse ox of 94%, he did wear BiPAP support last night pressures of 10 and 5, and FiO2 of 40%, normally wears a CPAP device at home and he thinks the pressure is around 20 cm of water with no inflow oxygen. Afebrile, he is tachypneic, hemodynamically patient is stable. Echocardiogram was completed and showed low normal EF between 50 and 55% severe enlargement of the right ventricle, and severe volume and pressure overload in the right ventricle, bioprosthetic aortic valve, mild mitral regurgitation. Patient was started on IV Lasix at 40 mg every 12 hours, breathing treatments, heparin drip per weight-based protocol. Review of Systems All systems: negative Constitutional: Reports weakness, Denies chills, Denies fever Eyes: denies blurred vision, denies pain Ears, nose, mouth and throat: Denies headache, Denies sore throat Cardiovascular: Reports decreased exercise tolerance, Reports dyspnea on exertion, Reports edema, Reports high blood pressure, Reports leg edema, Denies chest pain, Denies shortness of breath Respiratory: Reports dyspnea, Denies cough Gastrointestinal: Denies abdominal pain, Denies diarrhea, Denies nausea, Denies vomiting Musculoskeletal: Denies myalgias Integumentary: Denies pruritus, Denies rash Neurological: Denies numbness, Denies weakness Psychiatric: Denies anxiety, Denies depression Endocrine: Denies fatigue, Denies weight change Past Medical History Past Medical History: Cancer, Chest Pain / Angina, CVA/TIA, Diabetes Mellitus, Hyperlipidemia, Hypertension, Myocardial Infarction (ME), Sleep Apnea/CPAP/BIPAP, Thyroid Disorder Additional Past Medical History / Comment(s): ME X2, LAST 06/2013. AORTIC STENOSIS. = SHORT OF BREATH W/ ACTIVITY. 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 HX KIDNEY FAILURE IN PAST. HX GOUT. NEUROPATHY KIM FEET. USES C-PAP. OVERACTIVE THYROID HX. EDEMA IN LEGS. HX BOWEL RESECTION D/T CA, HAS ILEOSTOMY, IRRITATION AT SITE. Last Myocardial Infarction Date:: 02/2013 History of Any Multi-Drug Resistant Organisms: None Reported Past Surgical History: Bowel Resection, Cardiac Valve Replacement, Heart Catheterization, Hernia Repair, Orthopedic Surgery Additional Past Surgical History / Comment(s): CARDIAC CATH X3. LT SHOULDER SURG. BOWEL SURG,. aortic valve replacement 02/06/15 Past Anesthesia/Blood Transfusion Reactions: No Reported Reaction Past Psychological History: Depression Smoking Status: Never smoker Past Alcohol Use History: Occasional Past Drug Use History: None Reported - Past Family History Mother Family Medical History: Coronary Artery Disease (CAD), Hypertension Father Family Medical History: No Reported History Additional Family Medical History / Comment(s): heart valve disorders Medications and Allergies Home Medications Medication Instructions Recorded Confirmed Type Cyclobenzaprine [Flexeril] 10 mg PO HS PRN 01/09/15 03/02/19 History Insulin Glargine,Hum.rec.anlog 50 unit SQ QAM 01/09/15 03/02/19 History [Lantus Solostar] Triamcinolone Acetonide [Nasacort] 1 spray EA NOSTRIL BID 02/06/15 03/02/19 History glipiZIDE [Glucotrol] 5 mg PO AC-BID tab 02/13/15 03/02/19 Rx Aspirin EC [Ecotrin Low Dose] 162 mg PO DAILY #1 tablet. 02/16/15 03/02/19 Rx Ferrous Sulfate [Iron (65 MG 325 mg PO DAILY #1 tab 02/16/15 03/02/19 Rx Elemental)] Furosemide [Lasix] 40 mg PO DAILY #7 tab 02/16/15 03/02/19 Rx Albuterol Sulfate [Proventil Hfa] 2 puff INHALATION RT-Q4H 03/02/19 03/02/19 History Ergocalciferol [Vitamin D2 50,000 unit PO Q7D 03/02/19 03/02/19 History (DRISDOL)] Febuxostat [Uloric] 80 mg PO DAILY 03/02/19 03/02/19 History Fenofibrate Nanocrystallized 145 mg PO DAILY 03/02/19 03/02/19 History [Tricor] Hydrocodone/Acetaminophen [[place] 1 tab PO Q6H 03/02/19 03/02/19 History 10-325] Metoprolol Succinate [Toprol XL] 50 mg PO BID 03/02/19 03/02/19 History Multivitamins, Thera [Multivitamin 1 tab PO DAILY 03/02/19 03/02/19 History (formulary)] Omeprazole 20 mg PO DAILY 03/02/19 03/02/19 History Potassium Chloride ER [K-Dur 10] 10 meq PO DAILY 03/02/19 03/02/19 History Simvastatin [Zocor] 20 mg PO DAILY 03/02/19 03/02/19 History Valsartan [Diovan] 320 mg PO DAILY 03/02/19 03/02/19 History hydrALAZINE HCL [Apresoline] 25 mg PO BID 03/02/19 03/02/19 History traMADol HCL [Ultram] 50 mg PO Q6H 03/02/19 03/02/19 History Allergies Allergy/AdvReac Type Severity Reaction Status Date / Time allopurinol Allergy Rash/Hives Verified 03/02/19 16:38 Physical Exam Vitals: Vital Signs Temp Pulse Pulse Resp BP BP Pulse Ox 03/03/19 12:00 89 24 125/88 94 L 03/03/19 11:45 88 03/03/19 11:34 84 03/03/19 08:00 68 22 134/77 92 L 03/03/19 04:34 87 03/03/19 04:15 87 03/03/19 03:09 97.3 F L 81 32 H 149/80 96 03/02/19 23:45 98.2 F 83 28 H 147/81 97 03/02/19 21:32 97.9 F 75 28 H 114/75 96 03/02/19 20:09 75 30 H 116/78 96 03/02/19 19:15 89 28 H 130/80 96 03/02/19 18:16 87 26 H 90/57 94 L 03/02/19 17:24 116/90 03/02/19 16:59 87 03/02/19 16:44 92 03/02/19 16:16 97.5 F L 67 34 H 161/83 80 L Intake and Output 03/02/19 03/03/19 03/03/19 22:59 06:59 14:59 Intake Total 106.323 95.227 Output Total 400 700 Balance -293.677 -604.773 Intake: Intake, IV Titration 106.323 95.227 Amount Heparin Sod,Pork in 0.45% 106.323 95.227 NaCl 25,000 unit In 0.45 % NaCl 1 250ml.bag @ 7. 735 UNITS/KG/HR 9.999 mls /hr IV .Q24H [facility] Rx#: [id number] Output: Urine 400 Stool 700 Other: Voiding Method Urinal Urinal # Voids 2 # Bowel Movements 1 Weight 129.274 kg 121 kg 121 kg GENERAL EXAM: Alert, pleasant, 68-year-old white male, obese, on 4 L of oxygen with moderate conversational dyspnea HEAD: Normocephalic/atraumatic. EYES: Normal reaction of pupils, equal size. Conjunctiva pink, sclera white. NOSE: Clear with pink turbinates. THROAT: No erythema or exudates. NECK: No masses, no JVD, no thyroid enlargement, no adenopathy. CHEST: No chest wall deformity. Symmetrical expansion. LUNGS: Equal air entry with diminished breath sounds, expiratory wheezes, and basilar rhonchi CVS: Regular rate and rhythm, normal S1 and S2, no gallops, no murmurs, no rubs ABDOMEN: Soft, nontender. No hepatosplenomegaly, normal bowel sounds, no guarding or rigidity. EXTREMITIES: No clubbing, no edema, no cyanosis, 2+ pulses and upper and lower extremities. Lower extremity skin is reddened, dry, scaly MUSCULOSKELETAL: Muscle strength and tone normal. SPINE: No scoliosis or deformity SKIN: No rashes CENTRAL NERVOUS SYSTEM: Alert and oriented -3. No focal deficits, tone is normal in all 4 extremities. PSYCHIATRIC: Alert and oriented -3. Appropriate affect. Intact judgment and insight. Results - Laboratory Findings CBC and BMP: 03/03/19 04:01 03/03/19 04:01 PT/INR, D-dimer PT 10.7 sec (9.0-12.0) 03/02/19 16:33 INR 1.0 (<1.2) 03/02/19 16:33 D-Dimer 1.48 mg/L FEU (<0.60) H 03/03/19 11:02 Abnormal lab findings: Abnormal Labs 03/02/19 03/02/19 03/02/19 16:33 16:33 16:33 Lymphocytes # 0.8 L APTT D-Dimer Potassium 3.4 L BUN 39 H Creatinine 2.23 H Glucose 62 L POC Glucose (mg/dL) Plasma Lactic Acid Huber Calcium AST 77 H Troponin I 0.109 H* Total Protein Albumin 3.3 L 03/02/19 03/02/19 03/02/19 16:33 22:34 22:45 Lymphocytes # APTT D-Dimer Potassium BUN Creatinine Glucose POC Glucose (mg/dL) 38 L Plasma Lactic Acid Huber 2.2 H* Calcium AST Troponin I 0.105 H* Total Protein Albumin 03/02/19 03/03/19 03/03/19 22:53 02:00 02:22 Lymphocytes # APTT D-Dimer Potassium BUN Creatinine Glucose POC Glucose (mg/dL) 72 L 45 L 149 H Plasma Lactic Acid Huber Calcium AST Troponin I Total Protein Albumin 03/03/19 03/03/19 03/03/19 04:01 04:01 04:01 Lymphocytes # APTT 42.0 H D-Dimer Potassium BUN 43 H Creatinine 2.41 H Glucose 73 L POC Glucose (mg/dL) Plasma Lactic Acid Huber Calcium 8.3 L AST 80 H Troponin I 0.096 H* Total Protein 5.5 L Albumin 2.8 L 03/03/19 03/03/19 03/03/19 06:11 11:02 11:02 Lymphocytes # APTT 43.5 H D-Dimer 1.48 H Potassium BUN Creatinine Glucose POC Glucose (mg/dL) 56 L Plasma Lactic Acid Huber Calcium AST Troponin I Total Protein Albumin 03/03/19 11:58 Lymphocytes # APTT D-Dimer Potassium BUN Creatinine Glucose POC Glucose (mg/dL) 178 H Plasma Lactic Acid Huber Calcium AST Troponin I Total Protein Albumin - Diagnostic Findings Chest x-ray: report reviewed, image reviewed Additional studies: EKG reviewed Assessment and Plan Plan: Assessment: #1. Acute hypoxic respiratory failure secondary to acute exacerbation of co ngestive heart failure with low normal ejection fraction #2. History of aortic valve stenosis status post aortic valve replacement in 2014 with a bioprosthetic valve #3. Acute kidney injury likely related to ATN, intravascular volume depletion, poor oral intake, diuretics #4. Hypertension #5. Hyperlipidemia #6. Obstructive sleep apnea on CPAP therapy #7. Elevated troponins #8. Medical noncompliance #9. Lifetime nonsmoker, remote history of marijuana use #10. Elevated d-dimer of 1.48 #11. Diabetes mellitus with the peripheral neuropathy #12. Previous myocardial infarction #13. Hypothyroidism #14. History of colon cancer with resection and ileostomy placement with sub sequent hernia repair and ileostomy was repositioned in the left abdomen from the right abdomen. Patient did receive a course of chemotherapy following resection #15. Depression Plan: We'll continue with the IV Lasix, continue BiPAP support at bedtime and as needed, patient remains quite short of breath, chest x-ray findings are consistent with pulmonary edema, there is a ill-defined opacity in the left mid lung and left lower lung, will cover the patient with empiric antibiotics in the form of Rocephin, continue with nebulized bronchodilators, patient is undergoing cardiac evaluation, d-dimer was mildly elevated, but renal profile is abnormal and patient is being scheduled for a VQ scan. Will obtain lower extremity Dopplers to rule out DVT. The utility of the VQ scan will probably be low in view of pulmonary edema, unless it shows high probability for pulmonary embolism. We'll continue to closely follow and make further recommendations I performed a history & physical examination of the patient and discussed their management with my nurse practitioner, Ada Garcia. I reviewed the nurse practitioner's note and agree with the documented findings and plan of care. Lung sounds are positive for diminished sounds with basilar rales. The findings and the impression was discussed with the patient. I attest to the documentation by the nurse practitioner. Time with Patient: Greater than 30
[2019-03-03 15:11] LABS: Hemoglobin A1C 7.3 % (4.0-6.0)
[2019-03-03] MEDS: HYDROcodone/APAP 10-325MG 1 EACH TAB PO PRN (15:37)
--- NOTE | 2019-03-03 17:10 | US ---
EXAMINATION TYPE: US venous doppler duplex LE DATE OF EXAM: 03/03/2019 5:00 PM COMPARISON: NONE CLINICAL HISTORY: rule out DVT. Lower extremity skin redness without leg swelling; hypoxia, CHF SIDE PERFORMED: TECHNIQUE: The lower extremity deep venous system is examined utilizing real time linear array sonog paula with graded compression, doppler sonography and color-flow sonography. VESSELS IMAGED: Common Femoral Vein Deep Femoral Vein Greater Saphenous Vein * Femoral Vein Popliteal Vein Small Saphenous Vein * Proximal Calf Veins (* superficial vessels) Right Leg: Negative for DVT Left Leg: Negative for DVT IMPRESSION: No evidence of deep venous thrombosis in both legs.
[2019-03-03 17:28] LABS: Glucose,Whole Blood 263 mg/dL (75-99)
--- NOTE | 2019-03-03 17:34 | US ---
EXAMINATION TYPE: US kidneys/renal and bladder DATE OF EXAM: 03/03/2019 COMPARISON: US CLINICAL HISTORY: MARIANA. hypoxia, CHF, diabetic, colostomy EXAM MEASUREMENTS: Right Kidney: 9.8 x 6.1 x5.3 cm Left Kidney: 9.8 x 5.0 x 4.9 cm Post Void Residual Volume: not assessed on inpatient US exam is technically limited due to large body habitus Right Kidney: No hydronephrosis or masses seen Left Kidney: No hydronephrosis or masses seen Bladder: partially filled Bilateral Jets seen: not seen and constant motion artifact noted on US due to patient respiratory i nterference IMPRESSION: No evidence of renal mass or obstruction. Limited exam.
[2019-03-03 20:23] LABS: Glucose,Whole Blood 264 mg/dL (75-99)
--- NOTE | 2019-03-03 21:55 | P.CONS ---
History of Present Illness - Reason for Consult Consult date: 03/03/19 Bilateral lower extremity cellulitis Requesting physician: Navdeep Rayo - Chief Complaint Worsening shortness of breath for the last 5 days - History of Present Illness Patient is 68-year-old male admitted to the hospital with a chief complaints of increasing shortness of breath that has been getting worse for the last 5 days the patient did have shortness of breath on minimal exertion no interest the patient did have associated cough which is [id number] intensity and bring up some siddiqui sputum no hemoptysis denies having any chest pain the patient has felt feverish but denies taking his temperature the patient also have chronic swelling in his legs and some chronic erythematous changes and dry scaly skin however the patient currently denies having any pain to the leg. He did not have any open wounds or any drainage patient has been in the hospital for possible CHF exacerbation infections was consulted for diminished regarding possible extremity cellulitis currently on empiric Rocephin patient has been afebrile since admission to the hospital his white count has been normal did have elevated creatinine ultrasound of the kidneys has been negative for any hydronephrosis lower extremity Dopplers were negative for DVT Review of Systems CONSTITUTIONAL: Positive for weakness. Denies high-grade Fever EYES: No complaint. ENT:No complaint. RESPIRATORY: As per history of present illness CARDIOVASCULAR: As per history of present illness. GENITOURINARY: No complaint. GASTROINTESTINAL: No complaint. MUSCULOSKELETAL: No complaint. INTEGUMENTARY: As per history of present illness. PSYCHOLOGICAL: No complaint. ENDOCRINE: No complaint. NEUROLOGIC: No complaint. Past Medical History Past Medical History: Cancer, Chest Pain / Angina, CVA/TIA, Diabetes Mellitus, Hyperlipidemia, Hypertension, Myocardial Infarction ([place]), Sleep Apnea/CPAP/BIPAP, Thyroid Disorder Additional Past Medical History / Comment(s): [place] X2, LAST 06/2013. AORTIC BELINDA NOSIS. = SHORT OF BREATH W/ ACTIVITY. 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 HX KIDNEY FAILURE IN PAST. HX GOUT. NEUROPATHY KIM FEET. USES C-PAP. OVERACTIVE THYROID HX. EDEMA IN LEGS. HX BOWEL RESECTION D/T CA, HAS ILEOSTOMY, IRRITATION AT SITE. Last Myocardial Infarction Date:: 02/2013 History of Any Multi-Drug Resistant Organisms: None Reported Past Surgical History: Bowel Resection, Cardiac Valve Replacement, Heart Catheterization, Hernia Repair, Orthopedic Surgery Additional Past Surgical History / Comment(s): CARDIAC CATH X3. LT SHOULDER SURG. BOWEL SURG,. aortic valve replacement 02/06/15 Past Anesthesia/Blood Transfusion Reactions: No Reported Reaction Past Psychological History: Depression Smoking Status: Never smoker Past Alcohol Use History: Occasional Past Drug Use History: None Reported - Past Family History Mother Family Medical History: Coronary Artery Disease (CAD), Hypertension Father Family Medical History: No Reported History Additional Family Medical History / Comment(s): heart valve disorders Medications and Allergies Home Medications Medication Instructions Recorded Confirmed Type Cyclobenzaprine [Flexeril] 10 mg PO HS PRN 01/09/15 03/02/19 History Insulin Glargine,Hum.rec.anlog 50 unit SQ QAM 01/09/15 03/02/19 History [Lantus Solostar] Triamcinolone Acetonide [Nasacort] 1 spray EA NOSTRIL BID 02/06/15 03/02/19 History glipiZIDE [Glucotrol] 5 mg PO AC-BID tab 02/13/15 03/02/19 Rx Aspirin EC [Ecotrin Low Dose] 162 mg PO DAILY #1 tablet. 02/16/15 03/02/19 Rx Ferrous Sulfate [Iron (65 MG 325 mg PO DAILY #1 tab 02/16/15 03/02/19 Rx Elemental)] Furosemide [Lasix] 40 mg PO DAILY #7 tab 02/16/15 03/02/19 Rx Albuterol Sulfate [Proventil Hfa] 2 puff INHALATION RT-Q4H 03/02/19 03/02/19 History Ergocalciferol [Vitamin D2 50,000 unit PO Q7D 03/02/19 03/02/19 History (MELVIN)] Febuxostat [Uloric] 80 mg PO DAILY 03/02/19 03/02/19 History Fenofibrate Nanocrystallized 145 mg PO DAILY 03/02/19 03/02/19 History [Tricor] Hydrocodone/Acetaminophen [[place] 1 tab PO Q6H 03/02/19 03/02/19 History 10-325] Metoprolol Succinate [Toprol XL] 50 mg PO BID 03/02/19 03/02/19 History Multivitamins, Thera [Multivitamin 1 tab PO DAILY 03/02/19 03/02/19 History (formulary)] Omeprazole 20 mg PO DAILY 03/02/19 03/02/19 History Potassium Chloride ER [K-Dur 10] 10 meq PO DAILY 03/02/19 03/02/19 History Simvastatin [Zocor] 20 mg PO DAILY 03/02/19 03/02/19 History Valsartan [Diovan] 320 mg PO DAILY 03/02/19 03/02/19 History hydrALAZINE HCL [Apresoline] 25 mg PO BID 03/02/19 03/02/19 History traMADol HCL [Ultram] 50 mg PO Q6H 03/02/19 03/02/19 History Allergies Allergy/AdvReac Type Severity Reaction Status Date / Time allopurinol Allergy Rash/Hives Verified 03/02/19 16:38 Physical Exam Vitals: Vital Signs Temp Pulse Pulse Resp BP BP Pulse Ox 03/03/19 11:45 88 03/03/19 11:34 84 03/03/19 08:00 68 22 134/77 92 L 03/03/19 04:34 87 03/03/19 04:15 87 03/03/19 03:09 97.3 F L 81 32 H 149/80 96 03/02/19 23:45 98.2 F 83 28 H 147/81 97 03/02/19 21:32 97.9 F 75 28 H 114/75 96 03/02/19 20:09 75 30 H 116/78 96 03/02/19 19:15 89 28 H 130/80 96 03/02/19 18:16 87 26 H 90/57 94 L 03/02/19 17:24 116/90 03/02/19 16:59 87 03/02/19 16:44 92 03/02/19 16:16 97.5 F L 67 34 H 161/83 80 L Intake and Output 03/02/19 03/03/19 03/03/19 22:59 06:59 14:59 Intake Total 106.323 95.227 Output Total 400 300 Balance -293.677 -204.773 Intake: Intake, IV Titration 106.323 95.227 Amount Heparin Sod,Pork in 0.45% 106.323 95.227 NaCl 25,000 unit In 0.45 % NaCl 1 250ml.bag @ 7. 735 UNITS/KG/HR 9.999 mls /hr IV .Q24H REPLACED BY [facility] Rx#: [id number] Output: Urine 400 Stool 300 Other: Voiding Method Urinal # Voids 2 # Bowel Movements 1 Weight 129.274 kg 121 kg 121 kg GENERAL DESCRIPTION: An elderly male lying in bed, no distress. No tachypnea or accessory muscle of respiration use. HEENT: Shows Pallor , no scleral icterus. Oral mucous membrane is dry. No pharyngeal erythema or thrush NECK: Trachea central, no thyromegaly. LUNGS: Unlabored breathing. Coarse breath sounds at the base. No wheeze . HEART: S1, S2, regular rate and rhythm. No loud murmur ABDOMEN: Soft, no tenderness , guarding or rigidity, no organomegaly EXTREMITIES: Diffuse swelling of both legs with minimal erythema and dry scaly skin no significant warmth to touch or tenderness SKIN: No rash, no masses palpable. NEUROLOGICAL: The patient is awake, alert, oriented x3, mood and affect normal. Results CBC & Chem 7: 03/03/19 04:01 03/03/19 04:01 Labs: Abnormal Lab Results - Last 24 Hours (Table) 03/02/19 03/02/19 03/02/19 Range/Units 16:33 16:33 16:33 Lymphocytes # 0.8 L (1.0-4.8) k/uL APTT (22.0-30.0) sec D-Dimer (<0.60) mg/L FEU Potassium 3.4 L (3.5-5.1) mmol/L BUN 39 H (9-20) mg/dL Creatinine 2.23 H (0.66-1.25) mg/dL Glucose 62 L (74-99) mg/dL POC Glucose (mg/dL) (75-99) mg/dL Plasma Lactic Acid Huber (0.7-2.0) mmol/L Calcium (8.4-10.2) mg/dL AST 77 H (17-59) U/L Troponin I 0.109 H* (0.000-0.034) ng/mL Total Protein (6.3-8.2) g/dL Albumin 3.3 L (3.5-5.0) g/dL 03/02/19 03/02/19 03/02/19 Range/Units 16:33 22:34 22:45 Lymphocytes # (1.0-4.8) k/uL APTT (22.0-30.0) sec D-Dimer (<0.60) mg/L FEU Potassium (3.5-5.1) mmol/L BUN (9-20) mg/dL Creatinine (0.66-1.25) mg/dL Glucose (74-99) mg/dL POC Glucose (mg/dL) 38 L (75-99) mg/dL Plasma Lactic Acid Huber 2.2 H* (0.7-2.0) mmol/L Calcium (8.4-10.2) mg/dL AST (17-59) U/L Troponin I 0.105 H* (0.000-0.034) ng/mL Total Protein (6.3-8.2) g/dL Albumin (3.5-5.0) g/dL 03/02/19 03/03/19 03/03/19 Range/Units 22:53 02:00 02:22 Lymphocytes # (1.0-4.8) k/uL APTT (22.0-30.0) sec D-Dimer (<0.60) mg/L FEU Potassium (3.5-5.1) mmol/L BUN (9-20) mg/dL Creatinine (0.66-1.25) mg/dL Glucose (74-99) mg/dL POC Glucose (mg/dL) 72 L 45 L 149 H (75-99) mg/dL Plasma Lactic Acid Huber (0.7-2.0) mmol/L Calcium (8.4-10.2) mg/dL AST (17-59) U/L Troponin I (0.000-0.034) ng/mL Total Protein (6.3-8.2) g/dL Albumin (3.5-5.0) g/dL 03/03/19 03/03/19 03/03/19 Range/Units 04:01 04:01 04:01 Lymphocytes # (1.0-4.8) k/uL APTT 42.0 H (22.0-30.0) sec D-Dimer (<0.60) mg/L FEU Potassium (3.5-5.1) mmol/L BUN 43 H (9-20) mg/dL Creatinine 2.41 H (0.66-1.25) mg/dL Glucose 73 L (74-99) mg/dL POC Glucose (mg/dL) (75-99) mg/dL Plasma Lactic Acid Huber (0.7-2.0) mmol/L Calcium 8.3 L (8.4-10.2) mg/dL AST 80 H (17-59) U/L Troponin I 0.096 H* (0.000-0.034) ng/mL Total Protein 5.5 L (6.3-8.2) g/dL Albumin 2.8 L (3.5-5.0) g/dL 03/03/19 03/03/19 03/03/19 Range/Units 06:11 11:02 11:02 Lymphocytes # (1.0-4.8) k/uL APTT 43.5 H (22.0-30.0) sec D-Dimer 1.48 H (<0.60) mg/L FEU Potassium (3.5-5.1) mmol/L BUN (9-20) mg/dL Creatinine (0.66-1.25) mg/dL Glucose (74-99) mg/dL POC Glucose (mg/dL) 56 L (75-99) mg/dL Plasma Lactic Acid Huber (0.7-2.0) mmol/L Calcium (8.4-10.2) mg/dL AST (17-59) U/L Troponin I (0.000-0.034) ng/mL Total Protein (6.3-8.2) g/dL Albumin (3.5-5.0) g/dL 03/03/19 Range/Units 11:58 Lymphocytes # (1.0-4.8) k/uL APTT (22.0-30.0) sec D-Dimer (<0.60) mg/L FEU Potassium (3.5-5.1) mmol/L BUN (9-20) mg/dL Creatinine (0.66-1.25) mg/dL Glucose (74-99) mg/dL POC Glucose (mg/dL) 178 H (75-99) mg/dL Plasma Lactic Acid Huber (0.7-2.0) mmol/L Calcium (8.4-10.2) mg/dL AST (17-59) U/L Troponin I (0.000-0.034) ng/mL Total Protein (6.3-8.2) g/dL Albumin (3.5-5.0) g/dL Assessment and Plan Assessment: 1-patient admitted hospital with difficulty breathing which is likely multifactorial in this patient with possible CHF exacerbation plus minus a component of tracheobronchitis, clinical suspicion of underlying pneumonia as patient currently with no fever or elevated white count 2-patient with chronic swelling of the lower extremity with some discoloration and some erythema but no significant warmth underlying cellulitis less likely Plan: 1-patient will benefit from the application of moisturizing lotion to the leg for a dry scaly skin 2-agustin the area of the redness 3-continue with empiric Rocephin 1 g daily We will follow-up on clinical condition and cultures to further adjust medication if needed Thank you for this consultation will follow this patient along with you Time with Patient: Greater than 30
[2019-03-04] MEDS: HYDROcodone/APAP 10-325MG 1 EACH TAB PO PRN ×4 (00:36→23:31)
[2019-03-04 00:53] LABS: Glucose,Whole Blood 136 mg/dL (75-99)
[2019-03-04] MEDS: HEPARIN SOD,PORK IN 0.45% NACL 25,000 UNIT in 0.45% NACL 1 250ML.BAG IV SCH ×4 (01:40→22:25)
[2019-03-04] MEDS: ALBUTEROL NEBULIZED 2.5 MG/3 ML INHALATION SCH ×5 (03:36→20:01)
[2019-03-04] MEDS: INSULIN ASPART (NovoLOG) 100 UNIT/ML VIAL SQ SCH ×4 (06:03→20:33)
[2019-03-04] MEDS: PANTOPRAZOLE 40 MG TABLET PO SCH (06:09)
[2019-03-04] MEDS: glipiZIDE 5 MG TAB PO SCH ×2 (06:09→17:41)
[2019-03-04 06:11] LABS: Glucose,Whole Blood 125 mg/dL (75-99)
[2019-03-04 06:42] LABS: Albumin 2.9 g/dL (3.5-5.0); Calcium 8.4 mg/dL (8.4-10.2); Potassium 3.3 mmol/L (3.5-5.1); Total Bilirubin 0.7 mg/dL (0.2-1.3); Total Protein 5.9 g/dL (6.3-8.2)
[2019-03-04 06:43] LABS: HCT 41.7 % (39.0-53.0); MCH 29.9 pg (25.0-35.0); MCHC 33.6 g/dL (31.0-37.0); MCV 88.9 fL (80.0-100.0); Mean Platelet Volume 8.1; Platelet Count 206 k/uL (150-450); Poikilocytosis Slight; RDW 13.9 % (11.5-15.5); WBC 5.2 k/uL (3.8-10.6)
[2019-03-04 07:06] LABS: Eosinophils # (M) 0.16 k/uL (0-0.7); Lymphocytes # (M) 2.08 k/uL (1.0-4.8); Monocytes # (M) 0.36 k/uL (0-1.0); Neutrophils % (M) 50 %; Nucleated Red Blood Cells 0 /100 WBC (0-0); Total Cells Counted 100
[2019-03-04] MEDS: ATORVASTATIN 10 MG TAB PO SCH (08:40)
[2019-03-04] MEDS: FENOFIBRATE 160 MG TAB PO SCH (08:41)
[2019-03-04] MEDS: FERROUS SULFATE 325 MG TAB PO SCH (08:41)
[2019-03-04] MEDS: METOPROLOL SUCCINATE (ER) 50 MG TAB.ER.24H PO SCH ×2 (08:41→20:33)
[2019-03-04] MEDS: hydrALAZINE HCL 25 MG TAB PO SCH ×2 (08:41→20:33)
[2019-03-04] MEDS: MULTIVITAMINS, THERA 1 EACH TAB PO SCH (08:42)
[2019-03-04] MEDS: POTASSIUM CHLORIDE ER 10 MEQ TAB.ER.PRT PO SCH (08:42)
[2019-03-04] MEDS: FUROSEMIDE 10 MG/ML 4 ML VIAL IV SCH ×2 (08:43→20:34)
[2019-03-04] MEDS: Febuxostat [Uloric] 80 MG PO SCH (08:43)
[2019-03-04] MEDS: FLUTICASONE 50MCG/SPRAY NASAL 16GM EA NOSTRIL SCH ×2 (10:46→20:33)
[2019-03-04] MEDS ORDERED: POTASSIUM CHLORIDE ER 20 MEQ TAB.ER PO STA (11:16)
[2019-03-04 11:59] LABS: Glucose,Whole Blood 251 mg/dL (75-99)
--- NOTE | 2019-03-04 12:24 | NM ---
EXAMINATION TYPE: NM pul vent and perfuse DATE OF EXAM: 03/04/2019 COMPARISON: Chest x-ray 03/14/2019 HISTORY: Shortness of breath TECHNIQUE: Utilizing inhalation of 67.2 mCi Tc 99m DTPA aerosol and intravenous injection of 5 mCi o f Tc 99m MAA, ventilation and perfusion images are acquired post injection in multiple projections. FINDINGS: There is a matched defect involving the left lower lobe with triple match seen on chest x-ray. Exam i s limited due to patchy uptake seen on ventilation imaging with clumping of radiotracer centrally. IMPRESSION: Triple match left lung base compatible with intermediate probability for pulmonary embolism.
[2019-03-04] MEDS ORDERED: HEPARIN SODIUM,PORCINE 10,000 UNIT/ML 1 ML VIAL IV ONE (12:36)
[2019-03-04] MEDS ORDERED: HEPARIN SODIUM,PORCINE 5,000 UNIT/ML 1 ML VIAL IV PRN (12:36)
--- NOTE | 2019-03-04 12:39 | CONS ---
CONSULTATION REASON FOR CONSULT: Renal failure. HISTORY OF PRESENT ILLNESS: The patient is a 68-year-old male who was admitted to the hospital on 03/02/2019 with complaints of worsening shortness of breath and increased edema. The patient stated he has stopped taking his Lasix. His blood pressure had been running high and patient was also recently taken off of the lisinopril because of cough. He states his blood pressure had improved as other medications were increased prior to admission. He was scheduled to see us as outpatient for evaluation of kidney disease, but patient has not been seen yet. Serum creatinine was 2.23 on initial admission. It went up to 2.4 yesterday and this morning it is 2.1. Review of previous labs shows an creatinine of 0.9 in August of 2016. The patient denied any significant urinary symptoms. He denies use of any nonsteroidal anti-inflammatory agents. His home medications do not show any major nephrotoxic medications. I do see the Diovan on board, which was changed from lisinopril because of cough as outpatient. Patient's echocardiogram showed ejection fraction 50% to 55%. He is currently being diuresed. The Lasix is 40 mg IV q.12 hours. The patient states he is feeling better. His weight is down from 129 kg on initial admission to 119 now. Blood pressure is staying stable at 130 to 140 mmHg range for systolic blood pressure. PAST MEDICAL HISTORY: Significant for coronary artery disease, type 2 diabetes, hyperlipidemia, history of [place], aortic stenosis, neuropathy, history of bowel resection, obstructive sleep apnea, history of hypothyroidism. PAST SURGICAL HISTORY: Bowel resection, aortic valve replacement, cardiac catheterization, hernia repair. SOCIAL HISTORY: Negative for smoking, drug abuse or alcohol abuse. MEDICATIONS: Medications include Flexeril, Nasacort, Glucotrol, aspirin, iron, Lasix, vitamin D, Uloric, Toprol, potassium, Zocor, Diovan, hydralazine, Ultram. ALLERGIES: Allergies include ALLOPURINOL, which causes rash and hives. REVIEW OF SYSTEMS: Negative for fever, chills, nausea, vomiting, abdominal pain, or diarrhea. PHYSICAL EXAMINATION: On examination, currently patient is comfortable, awake, alert, oriented x3. He is not in any acute distress. Blood pressure is 138/67, heart rate 80 per minute. He is afebrile. EXAMINATION OF THE HEART: S1, S2. EXAMINATION OF THE LUNGS: Bilateral breath sounds are heard. Decreased breath sounds at bases. Crackles are heard bilaterally. Abdomen is soft, obese, nontender. Exam of lower extremities shows edema trace bilaterally. PROPELLER INSPECTOR exam is grossly intact. LABS: Labs show sodium 141, potassium 3.3, BUN 46, serum creatinine 2.17, albumin 2.9, hemoglobin 14.0. ASSESSMENT: 1. Acute kidney injury, acute tubular necrosis versus cardiorenal. The patient is not on any nephrotoxic medications at this time. He had been on angiotensin receptor blockers, which are currently on hold. I will continue to hold off on the losartan for now. Ultrasound of the kidneys has been ordered. I will continue with the IV Lasix. Repeat labs in a.m. Avoid hypotension. 2. Acute on top of chronic diastolic heart failure. 3. Hypertension, currently controlled. 4. Type 2 diabetes with neuropathy. 5. Hypokalemia, currently being replaced. Etiology is diuresis. PLAN: Continue IV Lasix at the current dose. Continue empiric antibiotics. Replace potassium. Repeat labs in a.m. Continue to hold off on the angiotensin receptor blockers. Check urinalysis. Thank you for this consultation. We will continue to follow the patient with you during his hospitalization. MMODL / IJN: [id number] /
--- NOTE | 2019-03-04 13:28 | P.PN ---
Subjective Progress Note Date: 03/04/19 This is a 68-year-old male patient who presented to the ER with complaints of increased shortness of breath for the past 5 days. Patient reports that he has been coughing. Patient denies fever. Patient has a past medical history of aortic valve replacement thousand [address] Styles, chest pain, CVA, diabetes mellitus, hyperlipidemia, hypertension, myocardial infarction, sleep apnea requiring CPAP and hypothyroidism. Chest x-ray completed showing radiographic findings suggest pulmonary edema. BNP elevated at 1040. Troponins also elevated 0.105, 0.096. EKG completed showing sinus tachycardia with premature atrial complexes. Left axis deviation. Patient started on heparin drip. Patient also started on IV Lasix 40 mg every 12 hours. Patient's creatinine elevated 2.41 and bun 43. Pulmonary, cardiology and nephrology services have been consulted. At this time patient is still complaining of shortness breath. 2-D echo has been ordered. Patient denies chest pain. Patient denies nausea vomiting or diarrhea. Patient denies any urinary burning or frequency. 03/04/2019 patient is starting to feel a little better. Shortness of breath is slowly improving. Patient followed by cardiology, pulmonary and nephrology and infectious disease. Echo shows an EF 50-55% ultrasound of the abdomen no renal mass or obstruction. Patient having urinary retention catheter will be inserted today. Patient denies any chest pain. Denies any nausea vomiting bowel movement changes. He is still having productive cough and sputum culture pending Objective - Vital Signs Vital signs: Vital Signs Temp 97.3 F L 03/04/19 04:00 Pulse 84 03/04/19 12:57 Resp 32 H 03/04/19 04:00 BP 138/67 03/04/19 04:00 Pulse Ox 97 03/04/19 04:00 Intake & Output 03/03/19 03/04/19 03/04/19 18:59 06:59 18:59 Intake Total 373.677 600 240 Output Total 2250 775 300 Balance -1876.323 -175 -60 Weight 121 kg 119.8 kg Intake: Intake, IV Titration 143.677 Amount Heparin Sod,Pork in 0.45% 143.677 NaCl 25,000 unit In 0.45 % NaCl 1 250ml.bag @ 7. 735 UNITS/KG/HR 9.999 mls /hr IV .Q24H [facility] Rx#: [id number] Oral 230 600 240 Output: Urine 1250 475 300 Stool 1000 300 Other: Voiding Method Urinal Urinal # Voids 1 1 # Bowel Movements 1 1 - Exam Head normocephalic Neck supple Lungs diminished bilaterally Heart regular rate and rhythm S1-S2, no rub or gallop Abdomen is soft nontender nondistended positive bowel sounds no hepatosplenomegaly Extremities bilateral lower extremity erythema improving Neuro alert and orientated to 3 - Labs CBC & Chem 7: 03/04/19 05:35 03/04/19 05:35 Labs: Abnormal Lab Results - Last 24 Hours (Table) 03/03/19 03/03/19 03/03/19 Range/Units 04:01 17:13 18:17 APTT 56.7 H (22.0-30.0) sec Potassium (3.5-5.1) mmol/L BUN (9-20) mg/dL Creatinine (0.66-1.25) mg/dL Glucose (74-99) mg/dL POC Glucose (mg/dL) 263 H (75-99) mg/dL Hemoglobin A1c 7.3 H (4.0-6.0) % Total Protein (6.3-8.2) g/dL Albumin (3.5-5.0) g/dL 03/03/19 03/04/19 03/04/19 Range/Units 20:20 00:33 05:35 APTT (22.0-30.0) sec Potassium 3.3 L (3.5-5.1) mmol/L BUN 46 H (9-20) mg/dL Creatinine 2.17 H (0.66-1.25) mg/dL Glucose 122 H (74-99) mg/dL POC Glucose (mg/dL) 264 H 136 H (75-99) mg/dL Hemoglobin A1c (4.0-6.0) % Total Protein 5.9 L (6.3-8.2) g/dL Albumin 2.9 L (3.5-5.0) g/dL 03/04/19 03/04/19 03/04/19 Range/Units 05:35 05:56 11:52 APTT 63.3 H (22.0-30.0) sec Potassium (3.5-5.1) mmol/L BUN (9-20) mg/dL Creatinine (0.66-1.25) mg/dL Glucose (74-99) mg/dL POC Glucose (mg/dL) 125 H 251 H (75-99) mg/dL Hemoglobin A1c (4.0-6.0) % Total Protein (6.3-8.2) g/dL Albumin (3.5-5.0) g/dL Microbiology - Last 24 Hours (Table) 03/03/19 15:50 Gram Stain - Preliminary Sputum 03/02/19 17:13 Blood Culture - Preliminary Blood No Growth after 24 hours Assessment and Plan Assessment: 1. Acute hypoxic respiratory failure secondary to an acute CHF exacerbation 2. Acute diastolic CHF exacerbation: Echo shows an EF of 50-55%. Continue the IV Lasix. Followed by cardiology. 3. Elevated d-dimer of 1.48. VQ scan results pending. Dopplers of the lower extremities are negative for DVT. Currently on IV heparin 4. Acute tracheobronchitis currently on Rocephin. Followed by infectious disease 5. Bilateral lower extremity cellulitis continue Rocephin 6. Hypokalemia: Secondary to the diuretics. Patient receiving potassium supplement 7. Acute kidney injury likely ATN versus cardiorenal. Patient followed by nephrology. Losartan's currently on hold ultrasound the kidneys show no mass or obstruction. Continue with IV fluids. Monitor closely while on the Lasix 8. Elevated troponins. Initial troponin 0.105, 0.096. Secondary to patient's elevated renal function and hypoxia. Patient seen evaluated by cardiology 9. Diabetes mellitus type 2. Patient's hypoglycemia has resolved. Likely related to poor oral intake. Patient's blood sugars are now 251. We'll resume his home Lantus. Continue his Glucotrol and continue sliding scale coverage. 10. Urinary retention: Hernandez catheter will be inserted 11. History of aortic valve replacement in 2014 12. History of CVA 13. History of hyperlipidemia 14. History of essential hypertension 15. History of sleep apnea requiring CPAP machine at home DVT prophylaxis heparin gtt. GI prophylaxis protonix I performed an examination of the patient and discussed their management with e physician Manufacturer Agent. I have reviewed the Physician Manufacturer Agent's notes and agree with the documented findings and plan of care
--- NOTE | 2019-03-04 13:46 | P.PN ---
Subjective Progress Note Date: 03/04/19 Principal diagnosis: acute exacerb. 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 Patient does have some baseline shortness of breath, however since last he is been experiencing increased difficulty breathing, denied any chest pain, he states his blood pressure has been elevated and Dr. Rayo has been making adjustments to his blood pressure medications, he was recently taken off the lisinopril related to dry cough and was started on hy dralazine. He denies any weight gain, has chronic lower extremity edema, with chronic and changes, dry skin, with the dry patches present on lower legs. He states he did feel feverish but did not take his temperature, his appetite has been poor, and he has had decreased oral intake, he wasn't feeling hungry. He states he used to see Dr. Bolaños however have not seen him in the last 2 years. Additionally patient stopped taking his Lasix about a month ago related to frequent trips to the bathroom, and was recently restarted on it by Dr. Rayo. Chest x-ray was completed showing findings of pulmonary edema. EKG showed sinus tachycardia with PACs and right bundle branch block, ST depression and T-wave inversion in the inferior and lateral leads. Lab work did not show any leukocytosis, white blood cell, 6.9, hemoglobin of 14.3, d-dimer was mildly elevated at 1.48, electrolytes were within normal limits, renal profile was abnormal with BUN of 43 and creatinine of 2.41, and it had been within normal limits on previous blood work 2015. Mild elevation of troponins at 0.109, 0.105, 0.096, and proBNP 1040. Repeat BNP this morning down to 787. During my evaluation patient is seen sitting up on the edge of the bed, he is quite short of breath even with conversation, on 4 L of oxygen with a pulse ox of 94%, he did wear BiPAP support last night pressures of 10 and 5, and FiO2 of 40%, normally wears a CPAP device at home and he thinks the pressure is around 20 cm of water with no inflow oxygen. Afebrile, he is tachypneic, hemodynamically patient is stable. Echocardiogram was completed and showed low normal EF between 50 and 55% severe enlargement of the right ventricle, and severe volume and pressure overload in the right ventricle, bioprosthetic aortic valve, mild mitral regurgitation. Patient was started on IV Lasix at 40 mg every 12 hours, breathing treatments, heparin drip per weight-based protocol. On 03/04/2019 patient seen in follow-up on selective care unit. He states he is doing better today, breathing easier, lung sounds are still very crackly, but overall patient appears to be less dyspneic, and more comfortable. Remains on oxygen, 4 L, did wear BiPAP last night, he is afebrile, he is diuresing, he is in -2 L over last 24 hours, today's labs have been reviewed, she VC is within normal limits, potassium was 3.3, 3 Dr. is within normal limits, and renal profile is a bit improved. Remains on IV Lasix, and maze on empiric antibiotics, on IV heparin, and he is being evaluated by cardiology. Blood and sputum cultures are pending. No fever or chills. Objective - Vital Signs Vital signs: Vital Signs Temp 97.3 F L 03/04/19 04:00 Pulse 84 03/04/19 12:57 Resp 32 H 03/04/19 04:00 BP 138/67 03/04/19 04:00 Pulse Ox 97 03/04/19 04:00 Intake & Output 03/03/19 03/04/19 03/04/19 18:59 06:59 18:59 Intake Total 373.677 600 240 Output Total 2250 775 300 Balance -1876.323 -175 -60 Weight 121 kg 119.8 kg Intake: Intake, IV Titration 143.677 Amount Heparin Sod,Pork in 0.45% 143.677 NaCl 25,000 unit In 0.45 % NaCl 1 250ml.bag @ 7. 735 UNITS/KG/HR 9.999 mls /hr IV .Q24H [facility] Rx#: [id number] Oral 230 600 240 Output: Urine 1250 475 300 Stool 1000 300 Other: Voiding Method Urinal Urinal # Voids 1 1 # Bowel Movements 1 1 - Exam GENERAL EXAM: Alert, pleasant, 68-year-old white male, obese, on 4 L of oxygen with moderate conversational dyspnea HEAD: Normocephalic/atraumatic. EYES: Normal reaction of pupils, equal size. Conjunctiva pink, sclera white. NOSE: Clear with pink turbinates. THROAT: No erythema or exudates. NECK: No masses, no JVD, no thyroid enlargement, no adenopathy. CHEST: No chest wall deformity. Symmetrical expansion. LUNGS: Equal air entry with diminished breath sounds, expiratory wheezes, and basilar rhonchi CVS: Regular rate and rhythm, normal S1 and S2, no gallops, no murmurs, no rubs ABDOMEN: Soft, nontender. No hepatosplenomegaly, normal bowel sounds, no guarding or rigidity. EXTREMITIES: No clubbing, no edema, no cyanosis, 2+ pulses and upper and lower extremities. Lower extremity skin is reddened, dry, scaly MUSCULOSKELETAL: Muscle strength and tone normal. SPINE: No scoliosis or deformity SKIN: No rashes CENTRAL NERVOUS SYSTEM: Alert and oriented -3. No focal deficits, tone is normal in all 4 extremities. PSYCHIATRIC: Alert and oriented -3. Appropriate affect. Intact judgment and insight. - Labs CBC & Chem 7: 03/04/19 05:35 03/04/19 05:35 Labs: Abnormal Lab Results - Last 24 Hours (Table) 03/03/19 03/03/19 03/03/19 Range/Units 04:01 17:13 18:17 APTT 56.7 H (22.0-30.0) sec Potassium (3.5-5.1) mmol/L BUN (9-20) mg/dL Creatinine (0.66-1.25) mg/dL Glucose (74-99) mg/dL POC Glucose (mg/dL) 263 H (75-99) mg/dL Hemoglobin A1c 7.3 H (4.0-6.0) % Total Protein (6.3-8.2) g/dL Albumin (3.5-5.0) g/dL 03/03/19 03/04/19 03/04/19 Range/Units 20:20 00:33 05:35 APTT (22.0-30.0) sec Potassium 3.3 L (3.5-5.1) mmol/L BUN 46 H (9-20) mg/dL Creatinine 2.17 H (0.66-1.25) mg/dL Glucose 122 H (74-99) mg/dL POC Glucose (mg/dL) 264 H 136 H (75-99) mg/dL Hemoglobin A1c (4.0-6.0) % Total Protein 5.9 L (6.3-8.2) g/dL Albumin 2.9 L (3.5-5.0) g/dL 03/04/19 03/04/19 03/04/19 Range/Units 05:35 05:56 11:52 APTT 63.3 H (22.0-30.0) sec Potassium (3.5-5.1) mmol/L BUN (9-20) mg/dL Creatinine (0.66-1.25) mg/dL Glucose (74-99) mg/dL POC Glucose (mg/dL) 125 H 251 H (75-99) mg/dL Hemoglobin A1c (4.0-6.0) % Total Protein (6.3-8.2) g/dL Albumin (3.5-5.0) g/dL Microbiology - Last 24 Hours (Table) 03/03/19 15:50 Gram Stain - Preliminary Sputum 03/02/19 17:13 Blood Culture - Preliminary Blood No Growth after 24 hours Assessment and Plan Plan: Assessment: #1. Acute hypoxic respiratory failure secondary to acute exacerbation of congestive heart failure with low normal ejection fraction #2. History of aortic valve stenosis status post aortic valve replacement in 2014 with a bioprosthetic valve #3. Acute kidney injury likely related to ATN, intravascular volume depletion, poor oral intake, diuretics #4. Hypertension #5. Hyperlipidemia #6. Obstructive sleep apnea on CPAP therapy #7. Elevated troponins #8. Medical noncompliance #9. Lifetime nonsmoker, remote history of marijuana use #10. Elevated d-dimer of 1.48, lower extremity Dopplers were negative, VQ scan showed intermediate probability for pulmonary embolism, doubt possibility of pulmonary embolism #11. Diabetes mellitus with the peripheral neuropathy #12. Previous myocardial infarction #13. Hypothyroidism #14. History of colon cancer with resection and ileostomy placement with subsequent hernia repair and ileostomy was repositioned in the left abdomen from the right abdomen. Patient did receive a course of chemotherapy following resection #15. Depression Plan: Continue current medical treatment, continue IV diuretics, empiric antibiotics, patient is looking is sounding better today, less dyspneic, profile is improving, no fever or chills, we'll continue to follow. VQ scan showed intermediate of ability of pulmonary embolism, doubt possibility of pulmonary embolism especially in view of negative lower extremity Dopplers. I performed a history & physical examination of the patient and discussed their management with my nurse practitioner, Ada Garcia. I reviewed the nurse practitioner's note and agree with the documented findings and plan of care. Lung sounds are positive for diminished sounds with basilar rales. The findings and the impression was discussed with the patient. I attest to the documentation by the nurse practitioner. Time with Patient: Less than 30
--- NOTE | 2019-03-04 14:15 | XR ---
EXAMINATION TYPE: XR chest 2V DATE OF EXAM: 03/04/2019 COMPARISON: 03/02/2019 TECHNIQUE: PA and lateral views submitted. HISTORY: Difficulty breathing FINDINGS: Bilateral subsegmental lower lobe infiltrate. Diffuse interstitial pattern. Atherosclerotic change ao rta. Biapical pleural thickening. Postsurgical changes seen. Sclerotic density overlying the right hu meral head. Hypertrophic and degenerative change of the spine. Previous surgery involving the left sh oulder suggested. IMPRESSION: 1. Bilateral lower lobe infiltrate. Improving left upper lobe area of infiltrate. 2. Correlate for mild central venous congestion.
--- NOTE | 2019-03-04 14:45 | US ---
EXAMINATION TYPE: US bladder DATE OF EXAM: 03/04/2019 COMPARISON: US renal 03/03/19 CLINICAL HISTORY: r/o obstruction. Pt having difficulty urinating EXAM MEASUREMENTS: Bladder Volume: 178 mL Bladder is anechoic. No definite wall thickening. IMPRESSION: Residual urine within the bladder as measured above. Remaining portion of the bladder de monstrates a normal appearance..
[2019-03-04 14:48] LABS: HGB 15.8 gm/dL (13.0-17.5); MCH 29.7 pg (25.0-35.0); MCHC 32.8 g/dL (31.0-37.0); MCV 90.6 fL (80.0-100.0); Mean Platelet Volume 8.7; Platelet Count 262 k/uL (150-450); Poikilocytosis Slight; RDW 14.7 % (11.5-15.5); WBC 7.3 k/uL (3.8-10.6)
[2019-03-04 14:56] LABS: Partial Thromboplastin Time 52.7 sec (22.0-30.0); Prothrombin Time 10.5 sec (9.0-12.0)
--- NOTE | 2019-03-04 15:20 | P.PN ---
Subjective Progress Note Date: 03/04/19 This is a 68-year-old gentleman with history of aortic valve replacement in 2015, prior CVA, diabetes, hypertension, hyperlipidemia, prior CVA, sleep apnea requiring CPAP, hypothyroidism, who presents to the hospital with symptoms of progressively worsening shortness of breath over a three-week duration. According to the patient, his blood pressure has been running very high as an outpatient, initially his symptoms started with cough and his CY inhibitor was discontinued. Patient was then started on 2 different blood pressure medications, on follow-up with his physician, he stated that his breathing was consistently becoming worse, he came to the emergency room then for further evaluation and treatment. Chest x-ray on arrival here showed pulmonary edema, and multifocal pneumonia possible. EKG on presentation here showed a sinus tachycardia with a right bundle branch block pattern and nonspecific ST-T wave changes. Blood pressure on arrival here 160/80 with a heart rate in the 60s, respirations 34, 80% on room air. White blood cell count 6.9, hemoglobin 14.3, platelet count 177. Sodium 139, potassium 3.5, BUN 43 and creatinine 2.4. Patient's creatinine yesterday 2.2, in 2016 0.9. Troponins 0.10, 0.10, 0.09. 03/04/2019 Patient seen and examined this morning, still quite short of breath although he does state that his breathing feels significantly improved from arrival here. Ultrasound of the bladder showed residual urine within the bladder approximately 178. According to the patient, he feels like he urinates frequently but only very small amounts. However his weight is documented to be down 2 kg. White blood cell count 7.3, hemoglobin 15.8, platelet count 262. Sodium 141, potassium 3.3, BUN 46 and creatinine 2.1. BNP 787. VQ scan was performed which showed intermediate probability for pulmonary embolism and heparin was increased at high intensity. Venous duplex study negative for DVT bilaterally. Objective - Vital Signs Vital signs: Vital Signs Temp 97.3 F L 03/04/19 04:00 Pulse 84 03/04/19 12:57 Resp 32 H 03/04/19 04:00 BP 138/67 03/04/19 04:00 Pulse Ox 97 03/04/19 04:00 Intake & Output 05/08/19 05/09/19 05/09/19 18:59 06:59 18:59 Intake Total 373.677 600 240 Output Total 2250 775 300 Balance -1876.323 -175 -60 Weight 121 kg 119.8 kg Intake: Intake, IV Titration 143.677 Amount Heparin Sod,Pork in 0.45% 143.677 NaCl 25,000 unit In 0.45 % NaCl 1 250ml.bag @ 7. 735 UNITS/KG/HR 9.999 mls /hr IV .Q24H [facility] Rx#: [id number] Oral 230 600 240 Output: Urine 1250 475 300 Stool 1000 300 Other: Voiding Method Urinal Urinal # Voids 1 1 # Bowel Movements 1 1 - Exam PHYSICAL EXAMINATION: GENERAL: 68-year-old gentleman in no acute distress at the time of my examination HEENT: Head is atraumatic, normocephalic. Pupils equal, round. Sclera anicteric. Conjunctiva are clear. Mucous membranes of the mouth are moist. Neck is supple. There is elevated jugular venous pressure. No carotid bruit is heard. HEART EXAMINATION: Heart S1 and S2, tachycardic, systolic murmur heard CHEST EXAMINATION: Lungs reveal decreased air exchange throughout, scattered coarse wheezing and rhonchi throughout ABDOMEN: Soft, obese, nontender. Bowel sounds are heard. No organomegaly noted. EXTREMITIES: 1+ peripheral pulses with trace evidence of peripheral edema, bilateral ear erythema, chronic venous stasis. NEUROLOGIC patient is awake, alert and oriented 3 . - Labs CBC & Chem 7: 03/04/19 14:11 03/04/19 05:35 Labs: Abnormal Lab Results - Last 24 Hours (Table) 03/03/19 03/03/19 03/03/19 Range/Units 17:13 18:17 20:20 APTT 56.7 H (22.0-30.0) sec Potassium (3.5-5.1) mmol/L BUN (9-20) mg/dL Creatinine (0.66-1.25) mg/dL Glucose (74-99) mg/dL POC Glucose (mg/dL) 263 H 264 H (75-99) mg/dL Total Protein (6.3-8.2) g/dL Albumin (3.5-5.0) g/dL 03/04/19 03/04/19 03/04/19 Range/Units 00:33 05:35 05:35 APTT 63.3 H (22.0-30.0) sec Potassium 3.3 L (3.5-5.1) mmol/L BUN 46 H (9-20) mg/dL Creatinine 2.17 H (0.66-1.25) mg/dL Glucose 122 H (74-99) mg/dL POC Glucose (mg/dL) 136 H (75-99) mg/dL Total Protein 5.9 L (6.3-8.2) g/dL Albumin 2.9 L (3.5-5.0) g/dL 03/04/19 03/04/19 03/04/19 Range/Units 05:56 11:52 14:11 APTT 52.7 H (22.0-30.0) sec Potassium (3.5-5.1) mmol/L BUN (9-20) mg/dL Creatinine (0.66-1.25) mg/dL Glucose (74-99) mg/dL POC Glucose (mg/dL) 125 H 251 H (75-99) mg/dL Total Protein (6.3-8.2) g/dL Albumin (3.5-5.0) g/dL Microbiology - Last 24 Hours (Table) 03/03/19 15:50 Gram Stain - Preliminary Sputum 03/02/19 17:13 Blood Culture - Preliminary Blood No Growth after 24 hours Assessment and Plan Plan: Assessment and plan #1 symptoms of progressively worsening shortness of breath, chest x-ray suggests pulmonary edema, CHF exacerbation diastolic acute on chronic, on IV Lasix #2 acute kidney injury, creatinine 2.1 today. #3 diabetes #4 history of aortic valve replacement #5 hypertension #6 hyperlipidemia #7 sleep apnea #8 abnormal troponins, could be secondary to abnormal renal function, and hypoxia, no significant rise and fall pattern to suggest acute coronary syndrome Plan VQ scan was performed which came back as triple defect with intermediate probability of pulmonary embolism although the venous duplex study was negative for DVT. We will increase the heparin to high intensity. 10 you current dose of IV Lasix. We will also obtain an ultrasound of the bladder to rule out any obstruction. Check lytes BUN and creatinine in the morning. DNP note has been reviewed, I agree with a documented findings and plan of care. Patient was seen and examined.
[2019-03-04 16:44] LABS: Anisocytosis (M) Present; Eosinophils # (M) 0.22 k/uL (0-0.7); Lymphocytes # (M) 1.75 k/uL (1.0-4.8); Monocytes # (M) 0.37 k/uL (0-1.0); Neutrophils # (M) 4.96 k/uL (1.3-7.7); Neutrophils % (M) 68 %; Nucleated Red Blood Cells 0 /100 WBC (0-0); Poikilocytosis (M) Present; Total Cells Counted 100
[2019-03-04 16:54] LABS: Glucose,Whole Blood 338 mg/dL (75-99)
--- NOTE | 2019-03-04 18:06 | PN ---
PROGRESS NOTE DATE OF SERVICE: 03/04/2019 REASON FOR FOLLOWUP: Lower extremity cellulitis. INTERVAL HISTORY: The patient is currently afebrile. His breathing has slightly improved. The patient continues to have a cough, bringing up some sputum. No chest pain. No abdominal pain. Denies any pain in the leg area. PHYSICAL EXAMINATION: Blood pressure is 138/67, pulse of 64, temperature 97.3. He is 97% on BiPAP. General description is an elderly male up in the bed in no distress. RESPIRATORY SYSTEM: Unlabored breathing. Coarse breath sounds bilaterally. Occasional wheeze. HEART: S1, S2. Regular rate and rhythm. ABDOMEN: Soft. No tenderness. Left leg did have slightly more redness today, slightly warm to touch. No skin breakdown or any drainage. LABS: Hemoglobin 15.8, white count 7.3, BUN of 46, creatinine 2.17. DIAGNOSTIC IMPRESSION AND PLAN: Patient admitted to hospital with difficulty in breathing which is likely multifactorial with possible in a patient who did have diffuse swelling of the left leg with minimal redness, possible cellulitis, currently covered with Rocephin. To continue while waiting for the to stabilize. Continue with supportive care. MMODL / IJN: [id number] /
[2019-03-04 18:40] LABS: Appearance,Urine Clear (Clear); Bilirubin,Urine Negative (Negative); Blood,Urine Trace (Negative); Color,Urine Yellow; Glucose,Urine (UA) 3+ (Negative); Hyaline Casts,Urine 3 /lpf (0-2); Ketones,Urine Negative (Negative); Leukocyte Esterase,Urine Negative (Negative); Mucus,Urine Rare /hpf; Nitrite,Urine Negative (Negative); Protein,Urine 3+ (Negative); RBC,Urine 1 /hpf (0-5); Specific Gravity,Urine 1.014 (1.001-1.035); Urobilinogen,Urine <2.0 mg/dL (<2.0); WBC,Urine <1 /hpf (0-5)
[2019-03-04 20:26] LABS: Glucose,Whole Blood 276 mg/dL (75-99)
[2019-03-05] MEDS: ALBUTEROL NEBULIZED 2.5 MG/3 ML INHALATION SCH ×8 (00:05→23:40)
[2019-03-05 03:43] LABS: Basophils # (A) 0.1 k/uL (0-0.2); Basophils % (A) 1 %; Eosinophils # (A) 0.2 k/uL (0-0.7); Eosinophils % (A) 3 %; HCT 45.2 % (39.0-53.0); HGB 15.1 gm/dL (13.0-17.5); Lymphocytes # (A) 1.7 k/uL (1.0-4.8); Lymphocytes % (A) 25 %; MCH 30.2 pg (25.0-35.0); MCHC 33.5 g/dL (31.0-37.0); Mean Platelet Volume 7.8; Monocytes # (A) 0.6 k/uL (0-1.0); Monocytes % (A) 9 %; Neutrophils # (A) 3.9 k/uL (1.3-7.7); Neutrophils % (A) 59 %; Platelet Count 253 k/uL (150-450); Poikilocytosis Slight; RBC 5.02 m/uL (4.30-5.90); RDW 13.9 % (11.5-15.5); WBC 6.7 k/uL (3.8-10.6)
[2019-03-05 04:10] LABS: Albumin 3.6 g/dL (3.5-5.0); Calcium 9.3 mg/dL (8.4-10.2); Potassium 3.7 mmol/L (3.5-5.1); Total Bilirubin 0.7 mg/dL (0.2-1.3); Total Protein 7.3 g/dL (6.3-8.2)
[2019-03-05 06:01] LABS: Glucose,Whole Blood 173 mg/dL (75-99)
[2019-03-05] MEDS: INSULIN ASPART (NovoLOG) 100 UNIT/ML VIAL SQ SCH ×4 (06:16→21:08)
[2019-03-05] MEDS: glipiZIDE 5 MG TAB PO SCH ×2 (06:17→17:28)
[2019-03-05] MEDS: PANTOPRAZOLE 40 MG TABLET PO SCH (06:17)
[2019-03-05] MEDS: ATORVASTATIN 10 MG TAB PO SCH (09:15)
[2019-03-05] MEDS: FERROUS SULFATE 325 MG TAB PO SCH (09:15)
[2019-03-05] MEDS: Febuxostat [Uloric] 80 MG PO SCH (09:15)
[2019-03-05] MEDS: FENOFIBRATE 160 MG TAB PO SCH (09:15)
[2019-03-05] MEDS: hydrALAZINE HCL 25 MG TAB PO SCH ×2 (09:16→20:26)
[2019-03-05] MEDS: HYDROcodone/APAP 10-325MG 1 EACH TAB PO PRN ×3 (09:16→23:35)
[2019-03-05] MEDS: POTASSIUM CHLORIDE ER 10 MEQ TAB.ER.PRT PO SCH (09:16)
[2019-03-05] MEDS: MULTIVITAMINS, THERA 1 EACH TAB PO SCH (09:16)
[2019-03-05] MEDS: METOPROLOL SUCCINATE (ER) 50 MG TAB.ER.24H PO SCH ×2 (09:16→20:26)
[2019-03-05] MEDS: FUROSEMIDE 10 MG/ML 4 ML VIAL IV SCH (09:18)
[2019-03-05 10:45] LABS: D-Dimer 0.71 mg/L FEU (<0.60); Partial Thromboplastin Time 63.8 sec (22.0-30.0)
[2019-03-05 11:41] LABS: Glucose,Whole Blood 255 mg/dL (75-99)
--- NOTE | 2019-03-05 11:59 | P.PN ---
Subjective Progress Note Date: 03/05/19 This is a 68-year-old male patient who presented to the ER with complaints of increased shortness of breath for the past 5 days. Patient reports that he has been coughing. Patient denies fever. Patient has a past medical history of aortic valve replacement thousand [address] Styles, chest pain, CVA, diabetes mellitus, hyperlipidemia, hypertension, myocardial infarction, sleep apnea requiring CPAP and hypothyroidism. Chest x-ray completed showing radiographic findings suggest pulmonary edema. BNP elevated at 1040. Troponins also elevated 0.105, 0.096. EKG completed showing sinus tachycardia with premature atrial complexes. Left axis deviation. Patient started on heparin drip. Patient also started on IV Lasix 40 mg every 12 hours. Patient's creatinine elevated 2.41 and bun 43. Pulmonary, cardiology and nephrology services have been consulted. At this time patient is still complaining of shortness breath. 2-D echo has been ordered. Patient denies chest pain. Patient denies nausea vomiting or diarrhea. Patient denies any urinary burning or frequency. 03/04/2019 patient is starting to feel a little better. Shortness of breath is slowly improving. Patient followed by cardiology, pulmonary and nephrology and infectious disease. Echo shows an EF 50-55% ultrasound of the abdomen no renal mass or obstruction. Patient having urinary retention catheter will be inserted today. Patient denies any chest pain. Denies any nausea vomiting bowel movement changes. He is still having productive cough and sputum culture pending 03/05/19 Patient's shortness of breath is slowly improving. Sputum culture normal [place]. Bladder scan showed no evidence of urinary retention. Hernandez catheter not placed. Patient denies CP Objective - Vital Signs Vital signs: Vital Signs Temp 98.3 F 03/05/19 09:45 Pulse 95 03/05/19 09:45 Resp 20 03/05/19 09:45 BP 127/80 03/05/19 09:45 Pulse Ox 93 L 03/05/19 09:45 Intake & Output 03/04/19 03/05/19 03/05/19 18:59 06:59 18:59 Intake Total 720 250.000 0 Output Total 600 1161 Balance 120 -911.000 0 Weight 118.6 kg Intake: Intake, IV Titration 250.000 Amount Heparin Sod,Pork in 0.45% 250.000 NaCl 25,000 unit In 0.45 % NaCl 1 250ml.bag @ 18 UNITS/KG/HR 21.564 mls/hr IV .[id number] [facility] Rx#: [id number] Oral 720 0 Output: Urine 600 495 Post Void Residual 66 Stool 600 Other: Voiding Method Urinal Urinal Urinal # Voids 1 1 # Bowel Movements 1 - Exam Head normocephalic Neck supple Lungs diminished bilaterally Heart regular rate and rhythm S1-S2, no rub or gallop Abdomen is soft nontender nondistended positive bowel sounds no hepatosplenomegaly Extremities left leg erythema improving Neuro alert and orientated to 3 - Labs CBC & Chem 7: 03/05/19 03:23 03/05/19 03:23 Labs: Abnormal Lab Results - Last 24 Hours (Table) 03/04/19 03/04/19 03/04/19 Range/Units 11:52 14:11 16:51 APTT 52.7 H (22.0-30.0) sec D-Dimer (<0.60) mg/L FEU BUN (9-20) mg/dL Creatinine (0.66-1.25) mg/dL Glucose (74-99) mg/dL POC Glucose (mg/dL) 251 H 338 H (75-99) mg/dL Urine Protein (Negative) Urine Glucose (UA) (Negative) Urine Blood (Negative) Hyaline Casts (0-2) /lpf Urine Mucus (None) /hpf 03/04/19 03/04/19 03/04/19 Range/Units 17:26 19:56 20:23 APTT >200.0 H* (22.0-30.0) sec D-Dimer (<0.60) mg/L FEU BUN (9-20) mg/dL Creatinine (0.66-1.25) mg/dL Glucose (74-99) mg/dL POC Glucose (mg/dL) 276 H (75-99) mg/dL Urine Protein 3+ H (Negative) Urine Glucose (UA) 3+ H (Negative) Urine Blood Trace H (Negative) Hyaline Casts 3 H (0-2) /lpf Urine Mucus Rare H (None) /hpf 03/05/19 03/05/19 03/05/19 Range/Units 03:23 03:23 06:00 APTT 85.5 H (22.0-30.0) sec D-Dimer (<0.60) mg/L FEU BUN 44 H (9-20) mg/dL Creatinine 2.38 H (0.66-1.25) mg/dL Glucose 170 H (74-99) mg/dL POC Glucose (mg/dL) 173 H (75-99) mg/dL Urine Protein (Negative) Urine Glucose (UA) (Negative) Urine Blood (Negative) Hyaline Casts (0-2) /lpf Urine Mucus (None) /hpf 03/05/19 03/05/19 Range/Units 10:04 11:40 APTT 63.8 H (22.0-30.0) sec D-Dimer 0.71 H (<0.60) mg/L FEU BUN (9-20) mg/dL Creatinine (0.66-1.25) mg/dL Glucose (74-99) mg/dL POC Glucose (mg/dL) 255 H (75-99) mg/dL Urine Protein (Negative) Urine Glucose (UA) (Negative) Urine Blood (Negative) Hyaline Casts (0-2) /lpf Urine Mucus (None) /hpf Microbiology - Last 24 Hours (Table) 03/03/19 15:50 Gram Stain - Final Sputum Sputum Culture - Final 03/02/19 17:13 Blood Culture - Preliminary Blood No Growth after 48 hours Assessment and Plan Assessment: 1. Acute hypoxic respiratory failure secondary to an acute CHF exacerbation 2. Acute diastolic CHF exacerbation: Echo shows an EF of 50-55%. Continue the IV Lasix. Followed by cardiology. 3. Elevated d-dimer of 1.48. VQ scan showing intermediate probability of PE. Dopplers of the lower extremities are negative for DVT. Per pulmonary they doubt patient has PE. Currently on IV heparin. repeat D-dimer 0.71 4. Acute tracheobronchitis currently on Rocephin. Followed by infectious disea se 5. left leg extremity cellulitis continue Rocephin 6. Hypokalemia: Secondary to the diuretics. resolved 7. Acute kidney injury likely ATN versus cardiorenal. Patient followed by nephrology. Losartan's currently on hold ultrasound the kidneys show no mass or obstruction. Continue with IV fluids. Monitor closely while on the Lasix. CR up to2.38 8. Elevated troponins. Initial troponin 0.105, 0.096. Secondary to patient's elevated renal function and hypoxia. Patient seen evaluated by cardiology 9. Diabetes mellitus type 2. Patient's hypoglycemia has resolved. Likely related to poor oral intake. Patient's blood sugars are now 251. We'll resume his home Lantus. Continue his Glucotrol and continue sliding scale coverage. Lantus started this AM will monitor BS 10. Urinary retention ruled out 11. History of aortic valve replacement in 2014 12. History of CVA 13. History of hyperlipidemia 14. History of essential hypertension 15. History of sleep apnea requiring CPAP machine at home DVT prophylaxis heparin gtt. GI prophylaxis protonix I performed an examination of the patient and discussed their management with the physician Surfacing Machine Operator. I have reviewed the Physician Surfacing Machine Operator's notes and agree with the documented findings and plan of care
[2019-03-05] MEDS: INSULIN DETEMIR (LEVEMIR) 100 UNIT/ML SYR SQ SCH (12:08)
[2019-03-05] MEDS: FLUTICASONE 50MCG/SPRAY NASAL 16GM EA NOSTRIL SCH ×2 (12:11→20:26)
[2019-03-05] MEDS: HEPARIN SOD,PORK IN 0.45% NACL 25,000 UNIT in 0.45% NACL 1 250ML.BAG IV SCH (12:13)
[2019-03-05] MEDS: MINERAL OIL-WHITE PETROLATUM 120 GM JAR TOPICAL SCH ×2 (12:20→23:35)
--- NOTE | 2019-03-05 13:23 | P.PN ---
Subjective Progress Note Date: 03/05/19 Principal diagnosis: CHF/pulmonary embolism This is a pleasant 68-year-old gentleman with a past medical history significant for aortic valve replacement, diabetes, hypertension, dyslipidemia, obstructive sleep apnea, and history of CVA, who was admitted to the hospital with pro gressive exertional dyspnea and bilateral lower extremities edema. The initial impression was congestive heart failure exacerbation. The patient indicated having VQ scan showing intermediate probability for PE. Subsequently the patient was started on heparin IV. Venous Doppler to study came in to be negative bilaterally. On follow-up with the patient today, 03/05/2019 overall he is looking better and he is feeling better. The shortness of breath has improved. The lower extremities edema has improved as well. No chest pain or chest discomfort. He continues to be on Lasix IV and continues to be on heparin IV. The creatinine is a slightly worse today. I am going to DC the Lasix IV and start the patient on Lasix by mouth. Continue monitor the kidney function. We will consider DC t he heparin IV and start the patient on oral anticoagulation. Objective - Vital Signs Vital signs: Vital Signs Temp 98.3 F 03/05/19 09:45 Pulse 86 03/05/19 12:12 Resp 20 03/05/19 11:25 BP 125/80 03/05/19 11:25 Pulse Ox 93 L 03/05/19 11:25 Intake & Output 03/04/19 03/05/19 03/05/19 18:59 06:59 18:59 Intake Total 720 250.000 0 Output Total 600 1161 Balance 120 -911.000 0 Weight 118.6 kg Intake: Intake, IV Titration 250.000 Amount Heparin Sod,Pork in 0.45% 250.000 NaCl 25,000 unit In 0.45 % NaCl 1 250ml.bag @ 18 UNITS/KG/HR 21.564 mls/hr IV .[id number] [facility] Rx#: [id number] Oral 720 0 Output: Urine 600 495 Post Void Residual 66 Stool 600 Other: Voiding Method Urinal Urinal Urinal # Voids 1 1 # Bowel Movements 1 - Constitutional General appearance: Present: no acute distress - Respiratory Respiratory: bilateral: rhonchi - Cardiovascular Rhythm: regular Heart sounds: normal: S1, S2 - Labs CBC & Chem 7: 03/05/19 03:23 03/05/19 03:23 Labs: Abnormal Lab Results - Last 24 Hours (Table) 03/04/19 03/04/19 03/04/19 Range/Units 14:11 16:51 17:26 APTT 52.7 H (22.0-30.0) sec D-Dimer (<0.60) mg/L FEU BUN (9-20) mg/dL Creatinine (0.66-1.25) mg/dL Glucose (74-99) mg/dL POC Glucose (mg/dL) 338 H (75-99) mg/dL Urine Protein 3+ H (Negative) Urine Glucose (UA) 3+ H (Negative) Urine Blood Trace H (Negative) Hyaline Casts 3 H (0-2) /lpf Urine Mucus Rare H (None) /[facility] 03/04/19 03/04/19 03/05/19 Range/Units 19:56 20:23 03:23 APTT >200.0 H* (22.0-30.0) sec D-Dimer (<0.60) mg/L FEU BUN 44 H (9-20) mg/dL Creatinine 2.38 H (0.66-1.25) mg/dL Glucose 170 H (74-99) mg/dL POC Glucose (mg/dL) 276 H (75-99) mg/dL Urine Protein (Negative) Urine Glucose (UA) (Negative) Urine Blood (Negative) Hyaline Casts (0-2) /lpf Urine Mucus (None) /[facility] 03/05/19 03/05/19 03/05/19 Range/Units 03:23 06:00 10:04 APTT 85.5 H 63.8 H (22.0-30.0) sec D-Dimer 0.71 H (<0.60) mg/L FEU BUN (9-20) mg/dL Creatinine (0.66-1.25) mg/dL Glucose (74-99) mg/dL POC Glucose (mg/dL) 173 H (75-99) mg/dL Urine Protein (Negative) Urine Glucose (UA) (Negative) Urine Blood (Negative) Hyaline Casts (0-2) /lpf Urine Mucus (None) /hpf 03/05/19 Range/Units 11:40 APTT (22.0-30.0) sec D-Dimer (<0.60) mg/L FEU BUN (9-20) mg/dL Creatinine (0.66-1.25) mg/dL Glucose (74-99) mg/dL POC Glucose (mg/dL) 255 H (75-99) mg/dL Urine Protein (Negative) Urine Glucose (UA) (Negative) Urine Blood (Negative) Hyaline Casts (0-2) /lpf Urine Mucus (None) /hpf Microbiology - Last 24 Hours (Table) 03/03/19 15:50 Gram Stain - Final Sputum Sputum Culture - Final 03/02/19 17:13 Blood Culture - Preliminary Blood No Growth after 48 hours Assessment and Plan Assessment: Assessment #1 shortness of breath probably related to combination of mild CHF as well as PE #2 congestive heart failure exacerbation secondary to diastolic dysfunction #3 pulmonary embolism #4 history of aortic valve replacement #5 multiple comorbid conditions including sleep apnea, hypertension, dyslipidemia, chronic kidney disease Plan #1 DC Lasix IV and start the patient on Lasix by mouth in view of the worsening kidney function #2 continue monitor the kidney function and electrolytes #3 consider starting oral anticoagulation by tomorrow
--- NOTE | 2019-03-05 14:02 | PN ---
PROGRESS NOTE Patient is seen for followup for acute kidney injury as well as possible underlying chronic kidney disease. Previous creatinine noted in 2016 was 0.9. The patient was admitted with a creatinine of 2.2. We do not have any other labs available between 2016 and 2019. Currently, patient is being diuresed for volume overload. He is maintained on IV Lasix 40 mg q.12 hours. He states he is feeling better. He has had decrease in his weight from 121 kg on admission to 118.6 kg today. Urine output about 3 L for 24 hours. The patient was on angiotensin receptor blockers at home prior to admission. These are currently on hold. Ultrasound has been unremarkable and patient is not on any nephrotoxic medications. The V/Q scan from yesterday showed intermediate possibility of PE and patient is maintained on IV heparin. Dopplers of lower extremities were negative for DVT. PHYSICAL EXAMINATION: On examination, patient is comfortable. Blood pressure is 125/80, heart rate 85 per minute. He is afebrile. EXAMINATION OF THE HEART: S1, S2. EXAMINATION OF THE LUNGS: Bilateral breath sounds are heard. Abdomen is soft, obese, nontender. Examination of the lower extremities shows trace edema bilaterally. SAMPLE GRADER exam is grossly intact. LABS: Labs show hemoglobin 15.1, sodium 141, potassium 3.7, BUN 44, serum creatinine 2.38. UA showed 3+ protein, 3+ glucose, trace blood, and hyaline casts were seen. ASSESSMENT: 1. Acute kidney injury, acute tubular necrosis/cardiorenal, currently not on any nephrotoxic medications. Continue to diurese patient. There was concern for urine retention yesterday. A bladder ultrasound showed 178 mL of urine and patient has been voiding. 2. Intermediate possibility of pulmonary embolism V/Q scan with elevated D-dimer, maintained on IV heparin. 3. Left lower extremity cellulitis, maintained on antibiotics. 4. Type 2 diabetes. 5. Previous history of cerebrovascular accident. 6. Valvular heart disease with history of aortic valve replacement. 7. Possible chronic kidney disease. No labs available for comparison between 2016 and 2019. We will try to obtain labs from outpatient. The patient does have proteinuria on the urinalysis. He most likely has underlying diabetic nephropathy. If this is an acute kidney injury with fairly preserved GFR from a few months ago and then we will proceed with serological workup for underlying GN. MMODL / IJN: [id number] /
--- NOTE | 2019-03-05 14:38 | P.PN ---
Subjective Progress Note Date: 03/05/19 Principal diagnosis: acute exacerb. 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 Patient does have some baseline shortness of breath, however since last he is been experiencing increased difficulty breathing, denied any chest pain, he states his blood pressure has been elevated and Dr. Rayo has been making adjustments to his blood pressure medications, he was recently taken off the lisinopril related to dry cough and was started on hy dralazine. He denies any weight gain, has chronic lower extremity edema, with chronic and changes, dry skin, with the dry patches present on lower legs. He states he did feel feverish but did not take his temperature, his appetite has been poor, and he has had decreased oral intake, he wasn't feeling hungry. He states he used to see Dr. Bolaños however have not seen him in the last 2 years. Additionally patient stopped taking his Lasix about a month ago related to frequent trips to the bathroom, and was recently restarted on it by Dr. Rayo. Chest x-ray was completed showing findings of pulmonary edema. EKG showed sinus tachycardia with PACs and right bundle branch block, ST depression and T-wave inversion in the inferior and lateral leads. Lab work did not show any leukocytosis, white blood cell, 6.9, hemoglobin of 14.3, d-dimer was mildly elevated at 1.48, electrolytes were within normal limits, renal profile was abnormal with BUN of 43 and creatinine of 2.41, and it had been within normal limits on previous blood work 2016. Mild elevation of troponins at 0.109, 0.105, 0.096, and proBNP 1040. Repeat BNP this morning down to 787. During my evaluation patient is seen sitting up on the edge of the bed, he is quite short of breath even with conversation, on 4 L of oxygen with a pulse ox of 94%, he did wear BiPAP support last night pressures of 10 and 5, and FiO2 of 40%, normally wears a CPAP device at home and he thinks the pressure is around 20 cm of water with no inflow oxygen. Afebrile, he is tachypneic, hemodynamically patient is stable. Echocardiogram was completed and showed low normal EF between 50 and 55% severe enlargement of the right ventricle, and severe volume and pressure overload in the right ventricle, bioprosthetic aortic valve, mild mitral regurgitation. Patient was started on IV Lasix at 40 mg every 12 hours, breathing treatments, heparin drip per weight-based protocol. On 03/04/2019 patient seen in follow-up on selective care unit. He states he is doing better today, breathing easier, lung sounds are still very crackly, but overall patient appears to be less dyspneic, and more comfortable. Remains on oxygen, 4 L, did wear BiPAP last night, he is afebrile, he is diuresing, he is in -2 L over last 24 hours, today's labs have been reviewed, she VC is within normal limits, potassium was 3.3, 3 Dr. is within normal limits, and renal profile is a bit improved. Remains on IV Lasix, and kandi on empiric antibiotics, on IV heparin, and he is being evaluated by cardiology. Blood and sputum cultures are pending. No fever or chills. On 03/05/2019 patient seen in follow-up on selective care unit, patient is awake and alert, in no acute distress, resting in bed, and he is able to lie in bed, without significant shortness of breath, currently on 3 L of oxygen with a pulse ox of 93%, did wear the BiPAP support last night, he states his breathing is improving, lung sounds are diminished, left crackly on today's exam, patient is afebrile. Blood and sputum cultures show no growth. Kandi on Rocephin for empiric antibiotic coverage, remains on heparin drip for positive troponins. 9 any chest pain, denies any cough or congestion. No fever or chills. We'll continue with present medical treatment, Objective - Vital Signs Vital signs: Vital Signs Temp 98.3 F 03/05/19 09:45 Pulse 86 03/05/19 12:12 Resp 20 03/05/19 11:25 BP 125/80 03/05/19 11:25 Pulse Ox 93 L 03/05/19 11:25 Intake & Output 03/04/19 03/05/19 03/05/19 18:59 06:59 18:59 Intake Total 720 250.000 0 Output Total 600 1161 Balance 120 -911.000 0 Weight 118.6 kg Intake: Intake, IV Titration 250.000 Amount Heparin Sod,Pork in 0.45% 250.000 NaCl 25,000 unit In 0.45 % NaCl 1 250ml.bag @ 18 UNITS/KG/HR 21.564 mls/hr IV .[id number] [facility] Rx#: [id number] Oral 720 0 Output: Urine 600 495 Post Void Residual 66 Stool 600 Other: Voiding Method Urinal Urinal Urinal # Voids 1 1 # Bowel Movements 1 - Exam GENERAL EXAM: Alert, pleasant, 68-year-old white male, obese, on 3 L of oxygen with moderate conversational dyspnea HEAD: Normocephalic/atraumatic. EYES: Normal reaction of pupils, equal size. Conjunctiva pink, sclera white. NOSE: Clear with pink turbinates. THROAT: No erythema or exudates. NECK: No masses, no JVD, no thyroid enlargement, no adenopathy. CHEST: No chest wall deformity. Symmetrical expansion. LUNGS: Equal air entry with diminished breath sounds, minimal basilar rhonchi CVS: Regular rate and rhythm, normal S1 and S2, no gallops, no murmurs, no rubs ABDOMEN: Soft, nontender. No hepatosplenomegaly, normal bowel sounds, no guarding or rigidity. EXTREMITIES: No clubbing, no edema, no cyanosis, 2+ pulses and upper and lower extremities. Lower extremity skin is reddened, dry, scaly MUSCULOSKELETAL: Muscle strength and tone normal. SPINE: No scoliosis or deformity SKIN: No rashes CENTRAL NERVOUS SYSTEM: Alert and oriented -3. No focal deficits, tone is normal in all 4 extremities. PSYCHIATRIC: Alert and oriented -3. Appropriate affect. Intact judgment and insight. - Labs CBC & Chem 7: 03/05/19 03:23 03/05/19 03:23 Labs: Abnormal Lab Results - Last 24 Hours (Table) 03/04/19 03/04/19 03/04/19 Range/Units 14:11 16:51 17:26 APTT 52.7 H (22.0-30.0) sec D-Dimer (<0.60) mg/L FEU BUN (9-20) mg/dL Creatinine (0.66-1.25) mg/dL Glucose (74-99) mg/dL POC Glucose (mg/dL) 338 H (75-99) mg/dL Urine Protein 3+ H (Negative) Urine Glucose (UA) 3+ H (Negative) Urine Blood Trace H (Negative) Hyaline Casts 3 H (0-2) /lpf Urine Mucus Rare H (None) /[facility] 03/04/19 03/04/19 03/05/19 Range/Units 19:56 20:23 03:23 APTT >200.0 H* (22.0-30.0) sec D-Dimer (<0.60) mg/L FEU BUN 44 H (9-20) mg/dL Creatinine 2.38 H (0.66-1.25) mg/dL Glucose 170 H (74-99) mg/dL POC Glucose (mg/dL) 276 H (75-99) mg/dL Urine Protein (Negative) Urine Glucose (UA) (Negative) Urine Blood (Negative) Hyaline Casts (0-2) /lpf Urine Mucus (None) /[facility] 03/05/19 03/05/19 03/05/19 Range/Units 03:23 06:00 10:04 APTT 85.5 H 63.8 H (22.0-30.0) sec D-Dimer 0.71 H (<0.60) mg/L FEU BUN (9-20) mg/dL Creatinine (0.66-1.25) mg/dL Glucose (74-99) mg/dL POC Glucose (mg/dL) 173 H (75-99) mg/dL Urine Protein (Negative) Urine Glucose (UA) (Negative) Urine Blood (Negative) Hyaline Casts (0-2) /lpf Urine Mucus (None) /[facility] 03/05/19 Range/Units 11:40 APTT (22.0-30.0) sec D-Dimer (<0.60) mg/L FEU BUN (9-20) mg/dL Creatinine (0.66-1.25) mg/dL Glucose (74-99) mg/dL POC Glucose (mg/dL) 255 H (75-99) mg/dL Urine Protein (Negative) Urine Glucose (UA) (Negative) Urine Blood (Negative) Hyaline Casts (0-2) /lpf Urine Mucus (None) /hpf Microbiology - Last 24 Hours (Table) 03/03/19 15:50 Gram Stain - Final Sputum Sputum Culture - Final 03/02/19 17:13 Blood Culture - Preliminary Blood No Growth after 48 hours Assessment and Plan Plan: Assessment: #1. Acute hypoxic respiratory failure secondary to acute exacerbation of congestive heart failure with low normal ejection fraction #2. History of aortic valve stenosis status post aortic valve replacement in 2014 with a bioprosthetic valve #3. Acute kidney injury likely related to ATN, intravascular volume depletion, poor oral intake, diuretics #4. Hypertension #5. Hyperlipidemia #6. Obstructive sleep apnea on CPAP therapy #7. Elevated troponins #8. Medical noncompliance #9. Lifetime nonsmoker, remote history of marijuana use #10. Elevated d-dimer of 1.48, lower extremity Dopplers were negative, VQ scan showed intermediate probability for pulmonary embolism, doubt possibility of pulmonary embolism #11. Diabetes mellitus with the peripheral neuropathy #12. Previous myocardial infarction #13. Hypothyroidism #14. History of colon cancer with resection and ileostomy placement with subsequent hernia repair and ileostomy was repositioned in the left abdomen from the right abdomen. Patient did receive a course of chemotherapy following resection #15. Depression Plan: We'll continue with current medical treatment, diuretics, breathing treatments, empiric antibiotics, patient is breathing easier, vital signs are stable, no fever or chills. Extremity edema is improving, and lower extremities look less red compared to admission. IV Lasix has been transitioned to oral. I performed a history & physical examination of the patient and discussed their management with my nurse practitioner, Ada Garcia. I reviewed the nurse practitioner's note and agree with the documented findings and plan of care. Lung sounds are positive for diminished sounds with basilar rales. The findings and the impression was discussed with the patient. I attest to the documentation by the nurse practitioner. Time with Patient: Less than 30
--- NOTE | 2019-03-05 16:16 | PN ---
PROGRESS NOTE DATE OF SERVICE: 03/05/2019 REASON FOR FOLLOWUP: Left lower leg cellulitis. INTERVAL HISTORY: The patient is currently afebrile. The patient's breathing has slightly improved. The patient had significant chest pain, continues to have some cough. No worsening. No abdominal pain or pain to the left leg area. PHYSICAL EXAMINATION: Blood pressure 125/80 with a pulse of 85, temperature 98.3. She is 93% on 3 L nasal cannula. General description is an elderly male lying in bed in no distress. RESPIRATORY SYSTEM: Unlabored breathing with decreased intensity of breath sounds. HEART: S1, S2. Regular rate and rhythm. ABDOMEN: Soft. No tenderness. LEFT LEG: Minimal redness. No significant warmth. LABS: Hemoglobin 15.9, white count 6.7, BUN of 44, creatinine is 2.38. Sputum cultures have been negative. DIAGNOSTIC IMPRESSION AND PLAN: Patient with left leg swelling and redness in this patient admitted to hospital with CHF in a patient with fluid overload, possible component of cellulitis, currently covered with Rocephin. To continue. Finish therapy with a short course of oral Keflex. Continue with supportive care. MMODL / IJN: [id number] /
[2019-03-05 16:40] LABS: Glucose,Whole Blood 215 mg/dL (75-99)
[2019-03-05 20:40] LABS: Glucose,Whole Blood 212 mg/dL (75-99)
[2019-03-06 02:32] LABS: Basophils % (A) 0 %; Eosinophils # (A) 0.3 k/uL (0-0.7); Eosinophils % (A) 3 %; HCT 42.8 % (39.0-53.0); HGB 14.5 gm/dL (13.0-17.5); Lymphocytes # (A) 1.1 k/uL (1.0-4.8); Lymphocytes % (A) 15 %; MCH 30.2 pg (25.0-35.0); MCHC 33.8 g/dL (31.0-37.0); MCV 89.4 fL (80.0-100.0); Mean Platelet Volume 7.7; Monocytes # (A) 0.6 k/uL (0-1.0); Monocytes % (A) 9 %; Neutrophils % (A) 70 %; Platelet Count 237 k/uL (150-450); Poikilocytosis Slight; RBC 4.79 m/uL (4.30-5.90); RDW 14.2 % (11.5-15.5); WBC 7.1 k/uL (3.8-10.6)
[2019-03-06 03:06] LABS: Albumin 3.4 g/dL (3.5-5.0); Calcium 9.5 mg/dL (8.4-10.2); Potassium 4.1 mmol/L (3.5-5.1); Total Bilirubin 0.6 mg/dL (0.2-1.3); Total Protein 6.8 g/dL (6.3-8.2)
[2019-03-06] MEDS: ALBUTEROL NEBULIZED 2.5 MG/3 ML INHALATION SCH ×6 (03:23→23:52)
[2019-03-06] MEDS: HEPARIN SOD,PORK IN 0.45% NACL 25,000 UNIT in 0.45% NACL 1 250ML.BAG IV SCH (05:30)
[2019-03-06] MEDS: HYDROcodone/APAP 10-325MG 1 EACH TAB PO PRN ×4 (06:20→23:59)
[2019-03-06] MEDS: PANTOPRAZOLE 40 MG TABLET PO SCH (06:21)
[2019-03-06 06:34] LABS: Glucose,Whole Blood 129 mg/dL (75-99)
[2019-03-06] MEDS: INSULIN ASPART (NovoLOG) 100 UNIT/ML VIAL SQ SCH ×4 (06:35→21:24)
[2019-03-06] MEDS: glipiZIDE 5 MG TAB PO SCH ×2 (07:03→17:53)
[2019-03-06] MEDS: FERROUS SULFATE 325 MG TAB PO SCH (08:37)
[2019-03-06] MEDS: FUROSEMIDE 40 MG TAB PO SCH (08:37)
[2019-03-06] MEDS: FENOFIBRATE 160 MG TAB PO SCH (08:37)
[2019-03-06] MEDS: ATORVASTATIN 10 MG TAB PO SCH (08:37)
[2019-03-06] MEDS: MULTIVITAMINS, THERA 1 EACH TAB PO SCH (08:37)
[2019-03-06] MEDS: POTASSIUM CHLORIDE ER 10 MEQ TAB.ER.PRT PO SCH (08:37)
[2019-03-06] MEDS: FLUTICASONE 50MCG/SPRAY NASAL 16GM EA NOSTRIL SCH ×2 (08:38→21:23)
[2019-03-06] MEDS: Febuxostat [Uloric] 80 MG PO SCH (08:42)
[2019-03-06] MEDS: METOPROLOL SUCCINATE (ER) 50 MG TAB.ER.24H PO SCH ×2 (08:42→21:23)
[2019-03-06] MEDS: hydrALAZINE HCL 25 MG TAB PO SCH ×2 (08:42→21:23)
[2019-03-06] MEDS: INSULIN DETEMIR (LEVEMIR) 100 UNIT/ML SYR SQ SCH (08:43)
[2019-03-06] MEDS: MINERAL OIL-WHITE PETROLATUM 120 GM JAR TOPICAL SCH ×2 (08:43→21:24)
--- NOTE | 2019-03-06 09:21 | P.PN ---
Subjective Progress Note Date: 03/06/19 This is a 68-year-old male patient who presented to the ER with complaints of increased shortness of breath for the past 5 days. Patient reports that he has been coughing. Patient denies fever. Patient has a past medical history of aortic valve replacement thousand [address] Styles, chest pain, CVA, diabetes mellitus, hyperlipidemia, hypertension, myocardial infarction, sleep apnea requiring CPAP and hypothyroidism. Chest x-ray completed showing radiographic findings suggest pulmonary edema. BNP elevated at 1040. Troponins also elevated 0.105, 0.096. EKG completed showing sinus tachycardia with premature atrial complexes. Left axis deviation. Patient started on heparin drip. Patient also started on IV Lasix 40 mg every 12 hours. Patient's creatinine elevated 2.41 and bun 43. Pulmonary, cardiology and nephrology services have been consulted. At this time patient is still complaining of shortness breath. 2-D echo has been ordered. Patient denies chest pain. Patient denies nausea vomiting or diarrhea. Patient denies any urinary burning or frequency. 03/04/2019 patient is starting to feel a little better. Shortness of breath is slowly improving. Patient followed by cardiology, pulmonary and nephrology and infectious disease. Echo shows an EF 50-55% ultrasound of the abdomen no renal mass or obstruction. Patient having urinary retention catheter will be inserted today. Patient denies any chest pain. Denies any nausea vomiting bowel movement changes. He is still having productive cough and sputum culture pending 03/05/19 Patient's shortness of breath is slowly improving. Sputum culture normal [place]. Bladder scan showed no evidence of urinary retention. Hernandez catheter not placed. Patient denies CP 03/06/2019 patient was seen and examined on the telemetry floor he is alert and oriented 3 in no apparent distress he is still complaining of cough and shortness of breath he is complaining of difficulty initiating urination otherwise he denies any complaints at this time there is no fever or chills no headache or dizziness no chest pain no nausea or vomiting no abdominal pain no diarrhea no burning was urination no frequency or urgency and no hematuria. Objective - Vital Signs Vital signs: Vital Signs Temp 97.7 F 03/06/19 03:43 Pulse 90 03/06/19 08:57 Resp 16 03/06/19 08:00 BP 125/78 03/06/19 08:00 Pulse Ox 94 L 03/06/19 08:00 Intake & Output 03/05/19 03/06/19 03/06/19 18:59 06:59 18:59 Intake Total 0 250.000 Output Total 200 300 185 Balance -200 -50.000 -185 Weight 118.6 kg 118.6 kg Intake: Intake, IV Titration 250.000 Amount Heparin Sod,Pork in 0.45% 250.000 NaCl 25,000 unit In 0.45 % NaCl 1 250ml.bag @ 18 UNITS/KG/HR 21.564 mls/hr IV .[id number] [facility] Rx#: [id number] Oral 0 Output: Urine 300 185 Stool 200 Other: Voiding Method Urinal Urinal # Voids 2 # Bowel Movements 1 - Exam In general patient is alert and oriented 3 in no apparent distress Head normocephalic and atraumatic Neck supple no JVD no goiter no lymphadenopathy Lungs diminished bilaterally with few rhonchi in bases Heart regular rate and rhythm S1-S2, no rub or gallop Abdomen is soft nontender nondistended positive bowel sounds no hepatosplenomegaly Extremities left leg erythema improving Neuro no gross focal neurological deficit - Labs CBC & Chem 7: 03/06/19 02:19 03/06/19 02:19 Labs: Abnormal Lab Results - Last 24 Hours (Table) 03/05/19 03/05/19 03/05/19 Range/Units 10:04 11:40 16:35 APTT 63.8 H (22.0-30.0) sec D-Dimer 0.71 H (<0.60) mg/L FEU BUN (9-20) mg/dL Creatinine (0.66-1.25) mg/dL Glucose (74-99) mg/dL POC Glucose (mg/dL) 255 H 215 H (75-99) mg/dL Albumin (3.5-5.0) g/dL 03/05/19 03/05/19 03/06/19 Range/Units 18:43 20:38 02:19 APTT 46.3 H (22.0-30.0) sec D-Dimer (<0.60) mg/L FEU BUN 42 H (9-20) mg/dL Creatinine 2.33 H (0.66-1.25) mg/dL Glucose 156 H (74-99) mg/dL POC Glucose (mg/dL) 212 H (75-99) mg/dL Albumin 3.4 L (3.5-5.0) g/dL 03/06/19 03/06/19 03/06/19 Range/Units 02:19 05:58 06:16 APTT 51.1 H 62.4 H (22.0-30.0) sec D-Dimer (<0.60) mg/L FEU BUN (9-20) mg/dL Creatinine (0.66-1.25) mg/dL Glucose (74-99) mg/dL POC Glucose (mg/dL) 129 H (75-99) mg/dL Albumin (3.5-5.0) g/dL Microbiology - Last 24 Hours (Table) 03/02/19 17:13 Blood Culture - Preliminary Blood No Growth after 72 hours 03/03/19 15:50 Gram Stain - Final Sputum Sputum Culture - Final Assessment and Plan Plan: 1. Acute hypoxic respiratory failure secondary to an acute CHF exacerbation 2. Acute diastolic CHF exacerbation: Echo shows an EF of 50-55%. Continue the IV Lasix. Followed by cardiology. 3. Elevated d-dimer of 1.48. VQ scan showing intermediate probability of PE. Dopplers of the lower extremities are negative for DVT. Per pulmonary they doubt patient has PE. Currently on IV heparin. repeat D-dimer 0.71 4. Acute tracheobronchitis currently on Rocephin. Followed by infectious disease 5. left leg extremity cellulitis continue Rocephin 6. Hypokalemia: Secondary to the diuretics. resolved 7. Acute kidney injury likely ATN versus cardiorenal. Patient followed by nephrology. Losartan's currently on hold ultrasound the kidneys show no mass or obstruction. Continue with IV fluids. Monitor closely while on the Lasix. CR up to2.38 8. Elevated troponins. Initial troponin 0.105, 0.096. Secondary to patient's elevated renal function and hypoxia. Patient seen evaluated by cardiology 9. Diabetes mellitus type 2. Patient's hypoglycemia has resolved. Likely related to poor oral intake. Patient's blood sugars are now 251. We'll resume his home Lantus. Continue his Glucotrol and continue sliding scale coverage. Lantus started this AM will monitor BS 10. Urinary retention ruled out 11. History of aortic valve replacement in 2014 12. History of CVA 13. History of hyperlipidemia 14. History of essential hypertension 15. History of sleep apnea requiring CPAP machine at home 16. DVT prophylaxis heparin gtt. GI prophylaxis protonix At this time patient remains on IV heparin will discuss with cardiology and pulmonary need to start oral anticoagulation Will have manager rn case assess insurance coverage Continue current management otherwise
--- NOTE | 2019-03-06 10:59 | P.PN ---
Subjective Progress Note Date: 03/06/19 Principal diagnosis: CHF/pulmonary embolism This is a pleasant 68-year-old gentleman with a past medical history significant for aortic valve replacement, diabetes, hypertension, dyslipidemia, obstructive sleep apnea, and history of CVA, who was admitted to the hospital with pro gressive exertional dyspnea and bilateral lower extremities edema. The initial impression was congestive heart failure exacerbation. The patient indicated having VQ scan showing intermediate probability for PE. Subsequently the patient was started on heparin IV. Venous Doppler to study came in to be negative bilaterally. The echocardiogram showed normal function with normally functioning bioprosthetic aortic valve. On follow-up with the patient today, 03/06/2019, overall he stated that the shortness of breath is better. On examination he does have bilateral expiratory wheezing. No chest pain or chest discomfort. The creatinine is slightly better after I stopped the Lasix IV and start the patient on Lasix by mouth. We are in process of finding coverage for oral anticoagulation with Eliquis Objective - Vital Signs Vital signs: Vital Signs Temp 97.7 F 03/06/19 03:43 Pulse 90 03/06/19 08:57 Resp 16 03/06/19 08:00 BP 125/78 03/06/19 08:00 Pulse Ox 94 L 03/06/19 08:00 Intake & Output 03/05/19 03/06/19 03/06/19 18:59 06:59 18:59 Intake Total 0 250.000 Output Total 200 300 185 Balance -200 -50.000 -185 Weight 118.6 kg 118.6 kg Intake: Intake, IV Titration 250.000 Amount Heparin Sod,Pork in 0.45% 250.000 NaCl 25,000 unit In 0.45 % NaCl 1 250ml.bag @ 18 UNITS/KG/HR 21.564 mls/hr IV .[id number] [facility] Rx#: [id number] Oral 0 Output: Urine 300 185 Stool 200 Other: Voiding Method Urinal Urinal # Voids 2 # Bowel Movements 1 - Constitutional General appearance: Present: no acute distress - Respiratory Respiratory: bilateral: wheezing - Cardiovascular Rhythm: regular Heart sounds: normal: S1, S2 Abnormal Heart Sounds: Present: systolic murmur - Labs CBC & Chem 7: 03/06/19 02:19 03/06/19 02:19 Labs: Abnormal Lab Results - Last 24 Hours (Table) 03/05/19 03/05/19 03/05/19 Range/Units 11:40 16:35 18:43 APTT 46.3 H (22.0-30.0) sec BUN (9-20) mg/dL Creatinine (0.66-1.25) mg/dL Glucose (74-99) mg/dL POC Glucose (mg/dL) 255 H 215 H (75-99) mg/dL Albumin (3.5-5.0) g/dL 03/05/19 03/06/19 03/06/19 Range/Units 20:38 02:19 02:19 APTT 51.1 H (22.0-30.0) sec BUN 42 H (9-20) mg/dL Creatinine 2.33 H (0.66-1.25) mg/dL Glucose 156 H (74-99) mg/dL POC Glucose (mg/dL) 212 H (75-99) mg/dL Albumin 3.4 L (3.5-5.0) g/dL 03/06/19 03/06/19 Range/Units 05:58 06:16 APTT 62.4 H (22.0-30.0) sec BUN (9-20) mg/dL Creatinine (0.66-1.25) mg/dL Glucose (74-99) mg/dL POC Glucose (mg/dL) 129 H (75-99) mg/dL Albumin (3.5-5.0) g/dL Microbiology - Last 24 Hours (Table) 03/02/19 17:13 Blood Culture - Preliminary Blood No Growth after 72 hours 03/03/19 15:50 Gram Stain - Final Sputum Sputum Culture - Final Assessment and Plan Assessment: Assessment #1 shortness of breath probably related to combination of mild CHF as well as PE #2 congestive heart failure exacerbation secondary to diastolic dysfunction #3 pulmonary embolism #4 history of aortic valve replacement #5 multiple comorbid conditions including sleep apnea, hypertension, dyslipidemia, chronic kidney disease Plan #1 continue the current dose of Lasix by mouth #2 continue monitor the kidney function and electrolytes for at least additional 24 hours #3 we are in process of finding coverage for oral anticoagulation with one of the noval agent.
[2019-03-06 12:09] LABS: Glucose,Whole Blood 228 mg/dL (75-99)
[2019-03-06] MEDS: APIXABAN 2.5 MG TABLET PO SCH ×2 (12:13→21:24)
--- NOTE | 2019-03-06 15:22 | PN ---
PROGRESS NOTE The patient is seen for followup for acute kidney injury and most likely underlying chronic kidney disease as well. Currently, patient is being diuresed. He is maintained on IV heparin for intermediate possibility of PE on V/Q scan with positive D- dimers. Renal function has stayed about the same. The patient has been voiding. He is currently off of CY inhibitors/angiotensin receptor blockers. PHYSICAL EXAMINATION: On examination this morning, blood pressure was 125/78, heart rate 92 per minute. Patient is afebrile. EXAMINATION OF THE HEART: S1, S2. EXAMINATION OF THE LUNGS: Bilateral breath sounds are heard. Decreased breath sounds at the bases. Abdomen is soft, obese. Examination of the lower extremities shows trace edema bilaterally. SUPPLIER QUALITY SPECIALIST exam is grossly intact. LABS: Labs show sodium 143, potassium 4.1, BUN 42, serum creatinine 2.3. Albumin 3.4. Hemoglobin of 14.5 g/dL. ASSESSMENT: 1. Acute kidney injury, mostly cardiorenal, currently nonoliguric. Renal function fairly stable. The patient is maintained on Lasix, which has been switched to p.o. Check repeat chest x-ray today. There are no nephrotoxic agents on board. Patient does have proteinuria. I will go ahead and order serologies. We do not have any labs available for comparison between 2016 and 2019. 2. Intermediate possibility for pulmonary embolism on V/Q scan, currently maintained on IV heparin. 3. History of bioprosthetic aortic valve replacement. 4. Congestive heart failure, acute on top of chronic, mainly diastolic. PLAN: Repeat chest x-ray. Proceed with serological workup for the proteinuria. Repeat labs in a.m. Continue to avoid nephrotoxic agents. MMODL / IJN: [id number] /
[2019-03-06 17:35] LABS: Glucose,Whole Blood 231 mg/dL (75-99)
[2019-03-06 20:24] LABS: Glucose,Whole Blood 306 mg/dL (75-99)
--- NOTE | 2019-03-06 21:19 | PN ---
PROGRESS NOTE DATE OF SERVICE: 03/06/2019. REASON FOR FOLLOWUP: Left leg cellulitis. INTERVAL HISTORY: The patient is currently afebrile. The patient is breathing comfortably. His breathing has improved. Cough decreased in intensity. No chest pain. No abdominal pain or any pain to the left leg area. PHYSICAL EXAMINATION: Blood pressure is 125/78 with a pulse of 73, temperature of 97.7. He is 94% 3 L nasal cannula. General description is an elderly male up in the bed in no distress. Respiratory system: Unlabored breathing with decreased breath sounds at bases. No wheeze. Heart S1, S2. Regular rate and rhythm. Abdomen soft. No tenderness. Left leg swelling and redness decreased with no open wound or any drainage. LABS: Hemoglobin is 14.5, white count 7.1. BUN of 42, creatinine 2.33. DIAGNOSTIC IMPRESSION AND PLAN: Patient admitted to the hospital with difficulty breathing, multifactorial with possible left leg cellulitis. Currently covered with Rocephin to continue to finish therapy with short course of oral Keflex. Continue supportive care. MMODL / IJN: [id number] /
[2019-03-06 23:51] LABS: Hepatitis B Surface AB- Quant 3.5 mIU/mL; Hepatitis C IgG Antibody Non-Reactive (Non-Reactive)
[2019-03-07] MEDS: ALBUTEROL NEBULIZED 2.5 MG/3 ML INHALATION SCH ×6 (03:33→23:57)
[2019-03-07 06:18] LABS: Basophils # (A) 0.1 k/uL (0-0.2); Basophils % (A) 1 %; Eosinophils # (A) 0.3 k/uL (0-0.7); Eosinophils % (A) 5 %; HCT 43.5 % (39.0-53.0); HGB 14.3 gm/dL (13.0-17.5); Lymphocytes # (A) 1.1 k/uL (1.0-4.8); Lymphocytes % (A) 19 %; MCH 29.5 pg (25.0-35.0); MCHC 32.8 g/dL (31.0-37.0); MCV 89.9 fL (80.0-100.0); Mean Platelet Volume 7.8; Monocytes # (A) 0.7 k/uL (0-1.0); Monocytes % (A) 11 %; Neutrophils # (A) 3.7 k/uL (1.3-7.7); Neutrophils % (A) 62 %; Platelet Count 257 k/uL (150-450); Poikilocytosis Slight; RBC 4.83 m/uL (4.30-5.90); RDW 14.5 % (11.5-15.5); WBC 5.9 k/uL (3.8-10.6)
[2019-03-07] MEDS: INSULIN ASPART (NovoLOG) 100 UNIT/ML VIAL SQ SCH ×4 (06:32→21:45)
[2019-03-07 06:33] LABS: Albumin 3.2 g/dL (3.5-5.0); Calcium 9.5 mg/dL (8.4-10.2); Potassium 4.6 mmol/L (3.5-5.1); Total Bilirubin 0.5 mg/dL (0.2-1.3); Total Protein 6.3 g/dL (6.3-8.2)
[2019-03-07 06:36] LABS: Glucose,Whole Blood 107 mg/dL (75-99)
[2019-03-07] MEDS: APIXABAN 2.5 MG TABLET PO SCH ×2 (09:15→21:45)
[2019-03-07] MEDS: FERROUS SULFATE 325 MG TAB PO SCH (09:15)
[2019-03-07] MEDS: hydrALAZINE HCL 25 MG TAB PO SCH ×2 (09:15→21:43)
[2019-03-07] MEDS: glipiZIDE 5 MG TAB PO SCH ×2 (09:15→17:53)
[2019-03-07] MEDS: FUROSEMIDE 40 MG TAB PO SCH (09:15)
[2019-03-07] MEDS: METOPROLOL SUCCINATE (ER) 50 MG TAB.ER.24H PO SCH ×2 (09:15→21:44)
[2019-03-07] MEDS: POTASSIUM CHLORIDE ER 10 MEQ TAB.ER.PRT PO SCH (09:16)
[2019-03-07] MEDS: HYDROcodone/APAP 10-325MG 1 EACH TAB PO PRN ×3 (09:16→21:44)
[2019-03-07] MEDS: FENOFIBRATE 160 MG TAB PO SCH (09:16)
[2019-03-07] MEDS: MULTIVITAMINS, THERA 1 EACH TAB PO SCH (09:16)
[2019-03-07] MEDS: PANTOPRAZOLE 40 MG TABLET PO SCH (09:16)
[2019-03-07] MEDS: FLUTICASONE 50MCG/SPRAY NASAL 16GM EA NOSTRIL SCH ×2 (09:17→21:45)
[2019-03-07] MEDS: INSULIN DETEMIR (LEVEMIR) 100 UNIT/ML SYR SQ SCH (09:18)
--- NOTE | 2019-03-07 10:53 | P.PN ---
Subjective Progress Note Date: 03/07/19 Principal diagnosis: CHF/pulmonary embolism This is a pleasant 68-year-old gentleman with a past medical history significant for aortic valve replacement, diabetes, hypertension, dyslipidemia, obstructive sleep apnea, and history of CVA, who was admitted to the hospital with pro gressive exertional dyspnea and bilateral lower extremities edema. The initial impression was congestive heart failure exacerbation. The patient indicated having VQ scan showing intermediate probability for PE. Subsequently the patient was started on heparin IV. Venous Doppler to study came in to be negative bilaterally. The echocardiogram showed normal function with normally functioning bioprosthetic aortic valve. Initially the patient was started also on Lasix IV for a component of congestive heart failure but his kidney function got worse. Because of that the Lasix IV was stopped and he was started on Lasix by mouth. I did see the patient today, 03/07/2019, he stated that he still not feeling well. His to have some shortness of breath. No chest pain or chest discomfort. Hemodynamically he continues to be stable. He was started on oral anticoagulation yesterday. The kidney function is slightly better today. He continues to be on Lasix by mouth at 40 mg daily. I recommended continue monitoring the patient for additional 24 hours and continue monitor the kidney function and electrolytes. Objective - Vital Signs Vital signs: Vital Signs Temp 97.8 F 03/07/19 06:27 Pulse 86 03/07/19 08:24 Resp 20 03/07/19 06:27 BP 137/77 03/07/19 06:27 Pulse Ox 97 03/07/19 06:27 Intake & Output 03/06/19 03/07/19 03/07/19 18:59 06:59 18:59 Intake Total 640 Output Total 2635 165 Balance -1994 Weight 118.9 kg Intake: Oral 640 Output: Urine 2635 165 Other: Voiding Method Urinal Urinal # Voids 2 1 - Constitutional General appearance: Present: no acute distress - Respiratory Respiratory: bilateral: CTA - Cardiovascular Rhythm: regular Heart sounds: normal: S1, S2 Abnormal Heart Sounds: Present: systolic murmur - Labs CBC & Chem 7: 03/07/19 05:50 03/07/19 05:50 Labs: Abnormal Lab Results - Last 24 Hours (Table) 03/06/19 03/06/19 03/06/19 Range/Units 12:06 17:15 20:20 Carbon Dioxide (22-30) mmol/L BUN (9-20) mg/dL Creatinine (0.66-1.25) mg/dL Glucose (74-99) mg/dL POC Glucose (mg/dL) 228 H 231 H 306 H (75-99) mg/dL Albumin (3.5-5.0) g/dL 03/07/19 03/07/19 Range/Units 05:50 06:30 Carbon Dioxide 32 H (22-30) mmol/L BUN 38 H (9-20) mg/dL Creatinine 2.13 H (0.66-1.25) mg/dL Glucose 112 H (74-99) mg/dL POC Glucose (mg/dL) 107 H (75-99) mg/dL Albumin 3.2 L (3.5-5.0) g/dL Microbiology - Last 24 Hours (Table) 03/02/19 17:13 Blood Culture - Preliminary Blood No Growth after 96 hours Assessment and Plan Assessment: Assessment #1 shortness of breath probably related to combination of mild CHF as well as PE #2 pulmonary embolism #3 history of aortic valve replacement #4 multiple comorbid conditions including sleep apnea, hypertension, dyslipidemia, and chronic kidney disease Plan #1 continue monitor the kidney function and electrolytes #2 continue oral anticoagulation #3 monitor the patient for additional 24 hours Thank you for allowing us participate in his care
[2019-03-07] MEDS: Febuxostat [Uloric] 80 MG PO SCH (12:08)
[2019-03-07] MEDS: MINERAL OIL-WHITE PETROLATUM 120 GM JAR TOPICAL SCH ×2 (12:13→21:45)
--- NOTE | 2019-03-07 12:15 | PN ---
PROGRESS NOTE Patient is seen for followup for acute kidney injury. His renal function has improved. Creatinine is down to 2.1 from 2.3 yesterday. Overall, patient states he is feeling well. He was sleeping this morning, but was arousable. Blood pressure was 127/70, heart rate 101 per minute. Patient is afebrile. Examination of the heart S1, S2. Examination of the lungs bilateral breath sounds are heard. Abdomen is soft, nontender. Examination of lower extremities shows no significant edema. MANAGER PRACTICE exam is grossly intact. LABS SHOW: Sodium 143, potassium 4.6, BUN 38, serum creatinine 2.13, hemoglobin 14.3 g/dL. ASSESSMENT: 1. Acute kidney injury, nonoliguric, mostly acute tubular necrosis. Serologies were sent out as patient does have proteinuria. However, this could very well just be diabetic nephropathy. The patient is maintained on oral Lasix which I will continue. I will also obtain a chest x-ray. 2. Pulmonary embolism with V/Q scan showing intermediate possibility. Maintained on anticoagulation. 3. History of bioprosthetic aortic valve replacement. 4. Congestive heart failure, acute on chronic, mainly diastolic. PLAN: Follow up on the serologies. Continue with oral Lasix. Check a chest x-ray today. MMODL / IJN: [id number] /
[2019-03-07 12:43] LABS: Glucose,Whole Blood 157 mg/dL (75-99)
--- NOTE | 2019-03-07 13:14 | XR ---
EXAMINATION TYPE: XR chest 2V DATE OF EXAM: 03/07/2019 HISTORY: chf. REFERENCE: Previous study dated 03/04/2019. FINDINGS: There has been a midline sternotomy. There is some scarring or atelectasis in the right upp er lobe. There is a left basilar infiltrate. Heart size upper limits of normal. Pulmonary vasculature is normal. There is a tiny left effusion. IMPRESSION: 1. CONTINUING LEFT BASILAR INFILTRATE. 2. SMALL LEFT EFFUSION. 3. SCARRING VERSUS ATELECTASIS, RIGHT UPPER LOBE.
[2019-03-07] MEDS: ATORVASTATIN 10 MG TAB PO SCH (15:43)
[2019-03-07 17:05] LABS: Glucose,Whole Blood 178 mg/dL (75-99)
[2019-03-07 21:18] LABS: Glucose,Whole Blood 226 mg/dL (75-99)
--- NOTE | 2019-03-07 22:16 | P.PN ---
Subjective Progress Note Date: 03/07/19 (Patient is seen for Dr. Rayo as well) This is a 68-year-old male patient who presented to the ER with complaints of increased shortness of breath for the past 5 days. Patient reports that he has been coughing. Patient denies fever. Patient has a past medical history of aortic valve replacement thousand [address] Styles, chest pain, CVA, diabetes mellitus, hyperlipidemia, hypertension, myocardial infarction, sleep apnea requiring CPAP and hypothyroidism. Chest x-ray completed showing radio graphic findings suggest pulmonary edema. BNP elevated at 1040. Troponins also elevated 0.105, 0.096. EKG completed showing sinus tachycardia with premature atrial complexes. Left axis deviation. Patient started on heparin drip. Patient also started on IV Lasix 40 mg every 12 hours. Patient's creatinine elevated 2.41 and bun 43. Pulmonary, cardiology and nephrology services have been consulted. At this time patient is still complaining of shortness breath. 2-D echo has been ordered. Patient denies chest pain. Patient denies nausea vomiting or diarrhea. Patient denies any urinary burning or frequency. 03/04/2019 patient is starting to feel a little better. Shortness of breath is slowly improving. Patient followed by cardiology, pulmonary and nephrology and infectious disease. Echo shows an EF 50-55% ultrasound of the abdomen no renal mass or obstruction. Patient having urinary retention catheter will be inserted today. Patient denies any chest pain. Denies any nausea vomiting bowel movement changes. He is still having productive cough and sputum culture pending 03/05/19 Patient's shortness of breath is slowly improving. Sputum culture normal [place]. Bladder scan showed no evidence of urinary retention. Hernandez catheter not placed. Patient denies CP 03/06/2019 patient was seen and examined on the telemetry floor he is alert and oriented 3 in no apparent distress he is still complaining of cough and shortness of breath he is complaining of difficulty initiating urination otherwise he denies any complaints at this time there is no fever or chills no headache or dizziness no chest pain no nausea or vomiting no abdominal pain no diarrhea no burning was urination no frequency or urgency and no hematuria. 03/07/19-- the patient denies any fever or chills the patient breathing is slightly improved the patient cough is decreased intensity is 3 drainage and no chest pain no abdominal pain no nausea no vomiting and no diarrhea left leg swelling and redness has improved cardiology is recommending another 24-hour of observation with current diuretic therapy Objective - Vital Signs Vital signs: Vital Signs Temp 97.8 F 03/07/19 06:27 Pulse 90 03/07/19 12:10 Resp 16 03/07/19 12:00 BP 156/91 03/07/19 12:00 Pulse Ox 95 03/07/19 12:00 Intake & Output 03/06/19 03/07/19 03/07/19 18:59 06:59 18:59 Intake Total 640 200 Output Total 2635 165 765 Balance -1994 -165 -565 Weight 118.9 kg Intake: Oral 640 200 Output: Urine 3988 490 765 Other: Voiding Method Urinal Urinal Urinal # Voids 2 1 1 - Exam GENERAL DESCRIPTION:[ Patient is awake and alert in no distress] HEENT: [Oral mucosa is dry and no pharyngeal erythema] EYES : [No pallor or scleral icterus] RESPIRATORY SYSTEM: [Unlabored breathing decreased breath sounds at bases no wheeze] CARDIA VASCULAR SYSTEM: [S1-S2 regular rate and rhythm no murmur] GI: [Abdominal soft there's no tenderness no organomegaly] EXTREMITIES: [Swelling and redness in the leg have decreased wound or drainage] - Labs CBC & Chem 7: 03/07/19 05:50 03/07/19 05:50 Labs: Abnormal Lab Results - Last 24 Hours (Table) 03/06/19 03/06/19 03/07/19 Range/Units 17:15 20:20 05:50 Carbon Dioxide 32 H (22-30) mmol/L BUN 38 H (9-20) mg/dL Creatinine 2.13 H (0.66-1.25) mg/dL Glucose 112 H (74-99) mg/dL POC Glucose (mg/dL) 231 H 306 H (75-99) mg/dL Albumin 3.2 L (3.5-5.0) g/dL 03/07/19 03/07/19 Range/Units 06:30 12:22 Carbon Dioxide (22-30) mmol/L BUN (9-20) mg/dL Creatinine (0.66-1.25) mg/dL Glucose (74-99) mg/dL POC Glucose (mg/dL) 107 H 157 H (75-99) mg/dL Albumin (3.5-5.0) g/dL Microbiology - Last 24 Hours (Table) 03/02/19 17:13 Blood Culture - Preliminary Blood No Growth after 96 hours Assessment and Plan Assessment: 1. Acute hypoxic respiratory failure secondary to an acute CHF exacerbation 2. Acute diastolic CHF exacerbation: Echo shows an EF of 50-55%. Patient Lasix has been switched over to by mouth to continue. Followed by cardiology. 3. Elevated d-dimer of 1.48. VQ scan showing intermediate probability of PE. Dopplers of the lower extremities are negative for DVT. Per pulmonary they doubt patient has PE. Currently on IV heparin. repeat D-dimer 0.71 4. Acute tracheobronchitis currently on Rocephin. Followed by infectious disease 5. left leg extremity cellulitis ----patient did have overall improvement in his cellulitis patient will continue Rocephin 6. Hypokalemia: Secondary to the diuretics. resolved 7. Acute kidney injury likely ATN versus cardiorenal. Patient followed by nephrology. Losartan's currently on hold ultrasound the kidneys show no mass or obstruction. Continue with IV fluids. Monitor closely while on the Lasix. Creatinine is down to 2.13 today 8. Elevated troponins. Initial troponin 0.105, 0.096. Secondary to patient's elevated renal function and hypoxia. Patient seen evaluated by cardiology 9. Diabetes mellitus type 2. Patient's hypoglycemia has resolved. Likely related to poor oral intake. Patient's blood sugars are in available 100 to low 200. The patient is currently being treated with Lantus. Continue his Gluco trol and continue sliding scale coverage. 10. Urinary retention ruled out 11. History of aortic valve replacement in 2014 12. History of CVA 13. History of hyperlipidemia 14. History of essential hypertension 15. History of sleep apnea requiring CPAP machine at home 16. DVT prophylaxis heparin gtt. GI prophylaxis protonix Patient has been started on oral anticoagulation in the form of Eliquamy , telephonic case manager to arrange for outpatient Hilda Time with Patient: Less than 30
[2019-03-08] MEDS: ALBUTEROL NEBULIZED 2.5 MG/3 ML INHALATION SCH ×5 (03:51→19:43)
[2019-03-08 06:10] LABS: Glucose,Whole Blood 113 mg/dL (75-99)
[2019-03-08] MEDS: INSULIN ASPART (NovoLOG) 100 UNIT/ML VIAL SQ SCH ×4 (06:24→21:30)
[2019-03-08 06:32] LABS: Basophils # (A) 0.1 k/uL (0-0.2); Basophils % (A) 1 %; Eosinophils # (A) 0.3 k/uL (0-0.7); Eosinophils % (A) 4 %; HCT 45.3 % (39.0-53.0); HGB 15.1 gm/dL (13.0-17.5); Lymphocytes # (A) 1.4 k/uL (1.0-4.8); Lymphocytes % (A) 20 %; MCH 29.7 pg (25.0-35.0); MCHC 33.3 g/dL (31.0-37.0); MCV 89.2 fL (80.0-100.0); Mean Platelet Volume 7.8; Monocytes # (A) 0.7 k/uL (0-1.0); Monocytes % (A) 10 %; Neutrophils # (A) 4.4 k/uL (1.3-7.7); Neutrophils % (A) 63 %; Platelet Count 322 k/uL (150-450); Poikilocytosis Slight; RBC 5.08 m/uL (4.30-5.90); RDW 14.7 % (11.5-15.5)
[2019-03-08] MEDS: Febuxostat [Uloric] 80 MG PO SCH (08:15)
[2019-03-08] MEDS: ATORVASTATIN 10 MG TAB PO SCH (08:23)
[2019-03-08] MEDS: PANTOPRAZOLE 40 MG TABLET PO SCH (08:23)
[2019-03-08] MEDS: glipiZIDE 5 MG TAB PO SCH ×2 (08:23→18:03)
[2019-03-08] MEDS: APIXABAN 2.5 MG TABLET PO SCH ×2 (08:23→21:04)
[2019-03-08] MEDS: hydrALAZINE HCL 25 MG TAB PO SCH ×2 (08:24→21:04)
[2019-03-08] MEDS: FERROUS SULFATE 325 MG TAB PO SCH (08:24)
[2019-03-08] MEDS: FENOFIBRATE 160 MG TAB PO SCH (08:24)
[2019-03-08] MEDS: FUROSEMIDE 40 MG TAB PO SCH (08:24)
[2019-03-08] MEDS: HYDROcodone/APAP 10-325MG 1 EACH TAB PO PRN ×3 (08:25→21:03)
[2019-03-08] MEDS: METOPROLOL SUCCINATE (ER) 50 MG TAB.ER.24H PO SCH ×2 (08:25→21:04)
[2019-03-08] MEDS: POTASSIUM CHLORIDE ER 10 MEQ TAB.ER.PRT PO SCH (08:25)
[2019-03-08] MEDS: MULTIVITAMINS, THERA 1 EACH TAB PO SCH (08:25)
[2019-03-08] MEDS: MINERAL OIL-WHITE PETROLATUM 120 GM JAR TOPICAL SCH ×2 (08:25→21:05)
[2019-03-08] MEDS: FLUTICASONE 50MCG/SPRAY NASAL 16GM EA NOSTRIL SCH ×2 (09:04→21:04)
[2019-03-08] MEDS: INSULIN DETEMIR (LEVEMIR) 100 UNIT/ML SYR SQ SCH (09:04)
[2019-03-08 09:51] LABS: Calcium 9.5 mg/dL (8.4-10.2); Potassium 4.6 mmol/L (3.5-5.1)
[2019-03-08 11:46] LABS: Glucose,Whole Blood 145 mg/dL (75-99)
--- NOTE | 2019-03-08 12:49 | P.PN ---
Subjective Progress Note Date: 03/08/19 This is a 68-year-old gentleman with history of aortic valve replacement in 2015, prior CVA, diabetes, hypertension, hyperlipidemia, prior CVA, sleep apnea requiring CPAP, hypothyroidism, who presents to the hospital with symptoms of progressively worsening shortness of breath over a three-week duration. According to the patient, his blood pressure has been running very high as an outpatient, initially his symptoms started with cough and his CY inhibitor was discontinued. Patient was then started on 2 different blood pressure medications, on follow-up with his physician, he stated that his breathing was consistently becoming worse, he came to the emergency room then for further evaluation and treatment. Chest x-ray on arrival here showed pulmonary edema, and multifocal pneumonia possible. EKG on presentation here showed a sinus tachycardia with a right bundle branch block pattern and nonspecific ST-T wave changes. Blood pressure on arrival here 160/80 with a heart rate in the 60s, respirations 34, 80% on room air. White blood cell count 6.9, hemoglobin 14.3, platelet count 177. Sodium 139, potassium 3.5, BUN 43 and creatinine 2.4. Patient's creatinine yesterday 2.2, in 2016 0.9. Troponins 0.10, 0.10, 0.09. 03/04/2019 Patient seen and examined this morning, still quite short of breath although he does state that his breathing feels significantly improved from arrival here. Ultrasound of the bladder showed residual urine within the bladder approximately 178. According to the patient, he feels like he urinates frequently but only very small amounts. However his weight is documented to be down 2 kg. White blood cell count 7.3, hemoglobin 15.8, platelet count 262. Sodium 141, potassium 3.3, BUN 46 and creatinine 2.1. BNP 787. VQ scan was performed which showed intermediate probability for pulmonary embolism and heparin was increased at high intensity. Venous duplex study negative for DVT bilaterally. 03/08/2019 Patient seen and examined this morning, continues to have a persistent cough, nonproductive. Breathing is overall stable. Blood pressure 150/70 with a heart rate in the 70s to 80s, 96% on BiPAPwhite blood cell count 7.0, hemoglobin 15.1, platelet count 322. Sodium 142, potassium 4.6, BUN 41 and creatinine 2.0. Objective - Vital Signs Vital signs: Vital Signs Temp 97.7 F 03/08/19 03:26 Pulse 78 03/08/19 11:38 Resp 23 03/08/19 03:26 BP 159/79 03/08/19 03:26 Pulse Ox 99 03/08/19 07:44 Intake & Output 03/07/19 03/08/19 03/08/19 18:59 06:59 18:59 Intake Total 660 0 Output Total 1665 200 Balance -1005 -200 0 Weight 118.9 kg Intake: Oral 660 0 Output: Urine 1665 200 Other: Voiding Method Urinal Urinal # Voids 1 1 - Exam PHYSICAL EXAMINATION: GENERAL: 68-year-old gentleman in no acute distress at the time of my examination HEENT: Head is atraumatic, normocephalic. Pupils equal, round. Sclera anicteric. Conjunctiva are clear. Mucous membranes of the mouth are moist. Neck is supple. There is elevated jugular venous pressure. No carotid bruit is heard. HEART EXAMINATION: Heart S1 and S2, tachycardic, systolic murmur heard CHEST EXAMINATION: Lungs reveal decreased air exchange throughout, scattered coarse wheezing and rhonchi throughout ABDOMEN: Soft, obese, nontender. Bowel sounds are heard. No organomegaly noted. EXTREMITIES: 1+ peripheral pulses with trace evidence of peripheral edema, bilateral ear erythema, chronic venous stasis. NEUROLOGIC patient is awake, alert and oriented 3 . - Labs CBC & Chem 7: 03/08/19 05:51 03/08/19 05:51 Labs: Abnormal Lab Results - Last 24 Hours (Table) 03/07/19 03/07/19 03/08/19 Range/Units 17:00 21:09 05:51 BUN 41 H (9-20) mg/dL Creatinine 2.04 H (0.66-1.25) mg/dL Glucose 129 H (74-99) mg/dL POC Glucose (mg/dL) 178 H 226 H (75-99) mg/dL 03/08/19 03/08/19 Range/Units 06:06 11:44 BUN (9-20) mg/dL Creatinine (0.66-1.25) mg/dL Glucose (74-99) mg/dL POC Glucose (mg/dL) 113 H 145 H (75-99) mg/dL Microbiology - Last 24 Hours (Table) 03/02/19 17:13 Blood Culture - Preliminary Blood No Growth after 120 hours Assessment and Plan Plan: Assessment and plan #1 symptoms of progressively worsening shortness of breath, tracheobronchitis and possible pneumonia #2 acute kidney injury #3 diabetes #4 history of aortic valve replacement #5 hypertension #6 hyperlipidemia #7 sleep apnea #8 abnormal troponins #9 pulmonary embolism Plan From cardiology's perspective, we'll continue the patient on his current medications. We will follow him along with you now on an as-needed basis only, please don't hesitate to call with any questions. DNP note has been reviewed, I agree with a documented findings and plan of care. Patient was seen and examined.
--- NOTE | 2019-03-08 14:09 | P.PN ---
Subjective Progress Note Date: 03/08/19 This is a 68-year-old male patient who presented to the ER with complaints of increased shortness of breath for the past 5 days. Patient reports that he has been coughing. Patient denies fever. Patient has a past medical history of aortic valve replacement thousand [address] Styles, chest pain, CVA, diabetes mellitus, hyperlipidemia, hypertension, myocardial infarction, sleep apnea requiring CPAP and hypothyroidism. Chest x-ray completed showing radiographic findings suggest pulmonary edema. BNP elevated at 1040. Troponins also elevated 0.105, 0.096. EKG completed showing sinus tachycardia with premature atrial complexes. Left axis deviation. Patient started on heparin drip. Patient also started on IV Lasix 40 mg every 12 hours. Patient's creatinine elevated 2.41 and bun 43. Pulmonary, cardiology and nephrology services have been consulted. At this time patient is still complaining of shortness breath. 2-D echo has been ordered. Patient denies chest pain. Patient denies nausea vomiting or diarrhea. Patient denies any urinary burning or frequency. 03/04/2019 patient is starting to feel a little better. Shortness of breath is slowly improving. Patient followed by cardiology, pulmonary and nephrology and infectious disease. Echo shows an EF 50-55% ultrasound of the abdomen no renal mass or obstruction. Patient having urinary retention catheter will be inserted today. Patient denies any chest pain. Denies any nausea vomiting bowel movement changes. He is still having productive cough and sputum culture pending 03/05/19 Patient's shortness of breath is slowly improving. Sputum culture normal [place]. Bladder scan showed no evidence of urinary retention. Hernandez catheter not placed. Patient denies CP 03/06/2019 patient was seen and examined on the telemetry floor he is alert and oriented 3 in no apparent distress he is still complaining of cough and shortness of breath he is complaining of difficulty initiating urination otherwise he denies any complaints at this time there is no fever or chills no headache or dizziness no chest pain no nausea or vomiting no abdominal pain no diarrhea no burning was urination no frequency or urgency and no hematuria. 03/07/19-- the patient denies any fever or chills the patient breathing is slightly improved the patient cough is decreased intensity is 3 drainage and no chest pain no abdominal pain no nausea no vomiting and no diarrhea left leg swelling and redness has improved cardiology is recommending another 24-hour of observation with current diuretic therapy 03/08/2019 patient reporting improvement in his shortness of breath and lower extremity edema. Cardiology is cleared him for discharge from their standpoint. Chest x-ray showing a continuing left basilar infiltrate. Discussed with case with pulmonary service still be surgery reevaluate him. Patient started on Eliquis for possible PE. Patient denies any chest pain. Denies any nausea or vomiting. Denies any difficulty urinating. Reports having bowel movements. Objective - Vital Signs Vital signs: Vital Signs Temp 97.7 F 03/08/19 03:26 Pulse 78 03/08/19 11:38 Resp 23 03/08/19 03:26 BP 159/79 03/08/19 03:26 Pulse Ox 99 03/08/19 07:44 Intake & Output 03/07/19 03/08/19 03/08/19 18:59 06:59 18:59 Intake Total 660 0 Output Total 1665 200 Balance -1005 -200 0 Weight 118.9 kg Intake: Oral 660 0 Output: Urine 1665 200 Other: Voiding Method Urinal Urinal # Voids 1 1 - Exam Head normocephalic Neck supple Lungs diminished bilaterally Heart regular rate and rhythm S1-S2, no rub or gallop Abdomen is soft nontender nondistended positive bowel sounds no hepatosplenomegaly Extremities edema and redness improved in the left leg Neuro alert and orientated to 3 - Labs CBC & Chem 7: 03/08/19 05:51 03/08/19 05:51 Labs: Abnormal Lab Results - Last 24 Hours (Table) 03/07/19 03/07/19 03/08/19 Range/Units 17:00 21:09 05:51 BUN 41 H (9-20) mg/dL Creatinine 2.04 H (0.66-1.25) mg/dL Glucose 129 H (74-99) mg/dL POC Glucose (mg/dL) 178 H 226 H (75-99) mg/dL 03/08/19 03/08/19 Range/Units 06:06 11:44 BUN (9-20) mg/dL Creatinine (0.66-1.25) mg/dL Glucose (74-99) mg/dL POC Glucose (mg/dL) 113 H 145 H (75-99) mg/dL Microbiology - Last 24 Hours (Table) 03/02/19 17:13 Blood Culture - Preliminary Blood No Growth after 120 hours Assessment and Plan Assessment: 1. Acute hypoxic respiratory failure secondary to an acute CHF exacerbation 2. Acute on chronic diastolic CHF exacerbation: Echo shows an EF of 50-55%. Patient is currently on oral Lasix. Has been cleared by cardiology for discharge 3. Possible PE: patient placed on Eliquis. ticket manager checking on Eliquis coverage. Elevated d-dimer of 1.48. VQ scan showing intermediate probability of PE. Dopplers of the lower extremities are negative for DVT. Per pulmonary they doubt patient has PE. repeat D-dimer 0.71. 4. Acute tracheobronchitis with possible pneumonia currently on Rocephin. Followed by infectious disease and pulmonary service. Chest x-ray showing continued left basilar infiltrate. Repeat chest x-ray in a.m. 5. left leg extremity cellulitis continue Rocephin 6. Hypokalemia: Secondary to the diuretics. resolved 7. Acute kidney injury likely ATN versus cardiorenal. Patient followed by nephrology. Losartan's currently on hold ultrasound the kidneys show no mass or obstruction. Monitor closely while on the Lasix. 8. Elevated troponins. Initial troponin 0.105, 0.096. Secondary to patient's elevated renal function and hypoxia. Patient seen evaluated by cardiology 9. Diabetes mellitus type 2. Continue Lantus, Glucotrol and sliding scale 10. Urinary retention ruled out 11. History of aortic valve replacement in 2014 12. History of CVA 13. History of hyperlipidemia 14. History of essential hypertension 15. History of sleep apnea requiring CPAP machine at home DVT prophylaxis Eliquis. GI prophylaxis protonix Consult PT OT Anticipate discharge possibly tomorrow if cleared by all consulting physicians Patient to be reevaluated today by pulmonary service Repeat chest x-ray in a.m. I performed an examination of the patient and discussed their management with the physician Dye Expert. I have reviewed the Physician Dye Expert's notes and agree with the documented findings and plan of care
--- NOTE | 2019-03-08 15:24 | XR ---
EXAMINATION TYPE: XR chest 2V DATE OF EXAM: 03/08/2019 COMPARISON: 03/07/2019 TECHNIQUE: PA and lateral views submitted. HISTORY: Pneumonia abnormal x-ray FINDINGS: Bilateral consolidation and pleural thickening or small right effusion stable. Cardiomegaly and posts urgical changes. Apical pleural thickening. No pneumothorax. Atherosclerotic change aorta. IMPRESSION: 1. Correlate for CHF otherwise consider pneumonia. Findings appear stable.
[2019-03-08 15:28] LABS: C-ANCA <1:20 Titer (<1:20); P-ANCA <1:20 Titer (<1:20)
[2019-03-08 16:54] LABS: Glucose,Whole Blood 180 mg/dL (75-99)
--- NOTE | 2019-03-08 19:28 | PN ---
PROGRESS NOTE DATE OF SERVICE: 03/08/2019 REASON FOR FOLLOWUP: Left lower extremity cellulitis. INTERVAL HISTORY: The patient is currently afebrile; had some shortness of breath and coughing this morning. bringing up some sputum. No purulence. No chest pain. No abdominal pain or pain to the left leg area. PHYSICAL EXAMINATION: Blood pressure 130/60 with a pulse of 97, temperature 98.4. She is 92% on 2 L nasal cannula. General description is an elderly male up in the bed in no distress. no wheeze. HEART: S1, S2 regular rate and rhythm. ABDOMEN: Soft. No tenderness. Left leg with minimal discoloration but no warmth. LABS: Hemoglobin 15.1, white count , BUN of 21, creatinine 2.04. DIAGNOSTIC IMPRESSION AND PLAN: Patient with mild left lower extremity cellulitis, for which the patient is currently on a short course of oral Ceftin. Continue supportive care. MMODL / IJN: [id number] /
--- NOTE | 2019-03-08 19:57 | PN ---
PROGRESS NOTE Patient is seen for followup for acute kidney injury. Currently patient is lying in bed. He is comfortable. Denies any significant complaints except for weakness. This morning blood pressure was 139/76, heart rate of 97 per minute. Patient is afebrile. EXAMINATION OF THE HEART: S1 and S2. EXAMINATION OF LUNGS: Decreased breath sounds at the bases. ABDOMEN: Soft, non-tender. Examination of lower extremities shows no significant edema. PORTFOLIO MGR exam is grossly intact. Labs show serum creatinine is down to 2.0. Sodium 142, potassium 4.6, hemoglobin 15.1 g/dL. ASSESSMENT: 1. Acute kidney injury, slowly improving. Creatinine is down to 2.0 from peak of 2.4. Previous creatinine was 0.9 in 2016. We do not have any other in between for comparison. Serologies were ordered, which are all negative. Patient is off of CY inhibitor/angiotensin receptor blockers. He is maintained on diuretics. Lasix is currently 40 mg p.o. daily. 2. Possible pulmonary embolism, maintained on Eliquis. 3. Diastolic heart failure, acute on top of chronic. 4. Possible underlying chronic kidney disease. Previous creatinine 0.9 in 2016. No other labs available in between. 5. History of bioprosthetic aortic valve replacement. PLAN: Continue with oral diuretics. Patient will need followup as outpatient. MMODL / IJN: [id number] /
[2019-03-08 21:39] LABS: Glucose,Whole Blood 222 mg/dL (75-99)
[2019-03-09] MEDS: ALBUTEROL NEBULIZED 2.5 MG/3 ML INHALATION SCH ×7 (00:17→23:08)
[2019-03-09] MEDS: HYDROcodone/APAP 10-325MG 1 EACH TAB PO PRN ×3 (05:18→22:38)
[2019-03-09] MEDS: INSULIN ASPART (NovoLOG) 100 UNIT/ML VIAL SQ SCH ×4 (06:38→20:41)
[2019-03-09 06:49] LABS: Glucose,Whole Blood 88 mg/dL (75-99)
[2019-03-09] MEDS: glipiZIDE 5 MG TAB PO SCH ×2 (06:49→17:03)
[2019-03-09] MEDS: PANTOPRAZOLE 40 MG TABLET PO SCH (06:49)
[2019-03-09 07:15] LABS: Basophils % (A) 1 %; Eosinophils # (A) 0.2 k/uL (0-0.7); Eosinophils % (A) 4 %; HCT 45.3 % (39.0-53.0); HGB 14.8 gm/dL (13.0-17.5); Lymphocytes # (A) 1.1 k/uL (1.0-4.8); Lymphocytes % (A) 17 %; MCH 29.6 pg (25.0-35.0); MCHC 32.7 g/dL (31.0-37.0); MCV 90.6 fL (80.0-100.0); Mean Platelet Volume 7.9; Monocytes # (A) 0.6 k/uL (0-1.0); Monocytes % (A) 10 %; Neutrophils # (A) 4.4 k/uL (1.3-7.7); Neutrophils % (A) 67 %; Platelet Count 271 k/uL (150-450); WBC 6.5 k/uL (3.8-10.6)
[2019-03-09] MEDS: FLUTICASONE 50MCG/SPRAY NASAL 16GM EA NOSTRIL SCH ×2 (09:34→20:41)
[2019-03-09] MEDS: ATORVASTATIN 10 MG TAB PO SCH (09:35)
[2019-03-09] MEDS: FERROUS SULFATE 325 MG TAB PO SCH (09:35)
[2019-03-09] MEDS: FENOFIBRATE 160 MG TAB PO SCH (09:35)
[2019-03-09] MEDS: APIXABAN 2.5 MG TABLET PO SCH ×2 (09:35→20:40)
[2019-03-09] MEDS: MULTIVITAMINS, THERA 1 EACH TAB PO SCH (09:35)
[2019-03-09] MEDS: METOPROLOL SUCCINATE (ER) 50 MG TAB.ER.24H PO SCH ×2 (09:35→20:40)
[2019-03-09] MEDS: POTASSIUM CHLORIDE ER 10 MEQ TAB.ER.PRT PO SCH (09:35)
[2019-03-09] MEDS: hydrALAZINE HCL 25 MG TAB PO SCH ×2 (09:35→20:40)
[2019-03-09] MEDS: FUROSEMIDE 40 MG TAB PO SCH (09:35)
[2019-03-09] MEDS: INSULIN DETEMIR (LEVEMIR) 100 UNIT/ML SYR SQ SCH (09:40)
[2019-03-09] MEDS: Febuxostat [Uloric] 80 MG PO SCH (09:42)
[2019-03-09 10:26] LABS: Albumin 3.4 g/dL (3.5-5.0); Calcium 9.5 mg/dL (8.4-10.2); Potassium 5.2 mmol/L (3.5-5.1); Total Bilirubin 0.6 mg/dL (0.2-1.3); Total Protein 6.5 g/dL (6.3-8.2)
--- NOTE | 2019-03-09 11:24 | P.PN ---
Subjective Progress Note Date: 03/09/19 This is a 68-year-old male patient who presented to the ER with complaints of increased shortness of breath for the past 5 days. Patient reports that he has been coughing. Patient denies fever. Patient has a past medical history of aortic valve replacement thousand [address] Styles, chest pain, CVA, diabetes mellitus, hyperlipidemia, hypertension, myocardial infarction, sleep apnea requiring CPAP and hypothyroidism. Chest x-ray completed showing radiographic findings suggest pulmonary edema. BNP elevated at 1040. Troponins also elevated 0.105, 0.096. EKG completed showing sinus tachycardia with premature atrial complexes. Left axis deviation. Patient started on heparin drip. Patient also started on IV Lasix 40 mg every 12 hours. Patient's creatinine elevated 2.41 and bun 43. Pulmonary, cardiology and nephrology services have been consulted. At this time patient is still complaining of shortness breath. 2-D echo has been ordered. Patient denies chest pain. Patient denies nausea vomiting or diarrhea. Patient denies any urinary burning or frequency. 03/04/2019 patient is starting to feel a little better. Shortness of breath is slowly improving. Patient followed by cardiology, pulmonary and nephrology and infectious disease. Echo shows an EF 50-55% ultrasound of the abdomen no renal mass or obstruction. Patient having urinary retention catheter will be inserted today. Patient denies any chest pain. Denies any nausea vomiting bowel movement changes. He is still having productive cough and sputum culture pending 03/05/19 Patient's shortness of breath is slowly improving. Sputum culture normal [place]. Bladder scan showed no evidence of urinary retention. Hernandez catheter not placed. Patient denies CP 03/06/2019 patient was seen and examined on the telemetry floor he is alert and oriented 3 in no apparent distress he is still complaining of cough and shortness of breath he is complaining of difficulty initiating urination otherwise he denies any complaints at this time there is no fever or chills no headache or dizziness no chest pain no nausea or vomiting no abdominal pain no diarrhea no burning was urination no frequency or urgency and no hematuria. 03/07/19-- the patient denies any fever or chills the patient breathing is slightly improved the patient cough is decreased intensity is 3 drainage and no chest pain no abdominal pain no nausea no vomiting and no diarrhea left leg swelling and redness has improved cardiology is recommending another 24-hour of observation with current diuretic therapy 03/08/2019 patient reporting improvement in his shortness of breath and lower extremity edema. Cardiology is cleared him for discharge from their standpoint. Chest x-ray showing a continuing left basilar infiltrate. Discussed with case with pulmonary service still be surgery reevaluate him. Patient started on Eliquis for possible PE. Patient denies any chest pain. Denies any nausea or vomiting. Denies any difficulty urinating. Reports having bowel movements. 03/09/2019 patient does not feel ready for discharge yet. He reports that he still having some shortness of breath especially with ambulating. Still feeling a little shaky. He ambulated in the hallway on room air satting 83%. Likely patient require home oxygen at discharge. He has been cleared by both cardiology and pulmonary services for discharge. The Eliquis has 0 co-pay. Eliquis was started for possible PE. Chest x-ray still struggling to correlate for CHF and cannot exclude underlying pneumonia. Had discussed case yesterday with pulmonary service. They felt the chest x-ray was showing improvement. Creatinine is at 2.05 Objective - Vital Signs Vital signs: Vital Signs Temp 97.4 F L 03/09/19 08:15 Pulse 92 03/09/19 10:57 Resp 18 03/09/19 08:15 BP 127/72 03/09/19 08:15 Pulse Ox 94 L 03/09/19 08:15 Intake & Output 03/08/19 03/09/19 03/09/19 18:59 06:59 18:59 Intake Total 444 0 118 Output Total 150 75 Balance 294 -75 118 Weight 117.5 kg Intake: Oral 444 0 118 Output: Urine 50 75 Stool 100 Other: Voiding Method Urinal Urinal Urinal # Voids 1 1 - Exam Head normocephalic Neck supple Lungs diminished bilaterally Heart regular rate and rhythm S1-S2, no rub or gallop Abdomen is soft nontender nondistended positive bowel sounds no hepatospl enomegaly Extremities no edema. Redness and left leg has improved. There is chronic changes Neuro alert and orientated to 3 - Labs CBC & Chem 7: 03/09/19 06:04 03/09/19 09:46 Labs: Abnormal Lab Results - Last 24 Hours (Table) 03/08/19 03/08/19 03/08/19 Range/Units 11:44 16:53 21:14 Potassium (3.5-5.1) mmol/L BUN (9-20) mg/dL Creatinine (0.66-1.25) mg/dL Glucose (74-99) mg/dL POC Glucose (mg/dL) 145 H 180 H 222 H (75-99) mg/dL Albumin (3.5-5.0) g/dL 03/09/19 Range/Units 09:46 Potassium 5.2 H (3.5-5.1) mmol/L BUN 39 H (9-20) mg/dL Creatinine 2.05 H (0.66-1.25) mg/dL Glucose 192 H (74-99) mg/dL POC Glucose (mg/dL) (75-99) mg/dL Albumin 3.4 L (3.5-5.0) g/dL Microbiology - Last 24 Hours (Table) 03/02/19 17:13 Blood Culture - Final Blood No Growth after 144 hours Assessment and Plan Assessment: 1. Acute hypoxic respiratory failure secondary to an acute CHF exacerbation 2. Acute on chronic diastolic CHF exacerbation: Echo shows an EF of 50-55%. Patient is currently on oral Lasix. Has been cleared by cardiology for discharge 3. Possible PE: patient placed on Eliquis. Eliquis is covered. There is no co-pay. Elevated d-dimer of 1.48. VQ scan showing intermediate probability of PE. Dopplers of the lower extremities are negative for DVT. Per pulmonary they doubt patient has PE. repeat D-dimer 0.71. 4. Acute tracheobronchitis with possible pneumonia currently on Rocephin. Followed by infectious disease and pulmonary service. Chest x-ray showing continued left basilar infiltrate. Repeat chest x-ray in a.m. 5. left leg extremity cellulitis. Improved. ID recommending Ceftin at discharge 6. Hypokalemia: Secondary to the diuretics. resolved 7. Acute kidney injury likely ATN versus cardiorenal. Patient followed by nephrology. Losartan's currently on hold ultrasound the kidneys show no mass or obstruction. Monitor closely while on the Lasix. 8. Elevated troponins. Initial troponin 0.105, 0.096. Secondary to patient's elevated renal function and hypoxia. Patient seen evaluated by cardiology 9. Diabetes mellitus type 2. Continue Lantus, Glucotrol and sliding scale 10. Urinary retention ruled out 11. History of aortic valve replacement in 2015 12. History of CVA 13. History of hyperlipidemia 14. History of essential hypertension 15. History of sleep apnea requiring CPAP machine at home 16. Hyperkalemia should he corrected with the Lasix. Repeat labs in AM DVT prophylaxis Eliquis. GI prophylaxis protonix Plan Work with PT OT Anticipate discharge possibly tomorrow I performed an examination of the patient and discussed their management with cher tapia physician Storeroom Supervisor. I have reviewed the Physician Storeroom Supervisor's notes and agree with the documented findings and plan of care
[2019-03-09 11:42] LABS: Glucose,Whole Blood 169 mg/dL (75-99)
[2019-03-09] MEDS: MINERAL OIL-WHITE PETROLATUM 120 GM JAR TOPICAL SCH ×2 (12:39→20:41)
[2019-03-09 16:51] LABS: Glucose,Whole Blood 271 mg/dL (75-99)
[2019-03-09 20:38] LABS: Glucose,Whole Blood 202 mg/dL (75-99)
--- NOTE | 2019-03-09 21:58 | PN ---
PROGRESS NOTE DATE OF SERVICE: 03/09/2019 REASON FOR FOLLOWUP: Left lower extremity cellulitis. INTERVAL HISTORY: The patient is currently afebrile. The patient has been breathing comfortably. Cough has decreased in intensity. No chest pain, abdominal pain or any diarrhea. PHYSICAL EXAMINATION: Blood pressure is 172/87 with a pulse of 90, temperature 97.3. He is 94% on 2 L nasal cannula. General description is an elderly male lying in bed in no distress. RESPIRATORY SYSTEM: Unlabored breathing with decreased breath sounds at the bases. No wheeze. HEART: S1, S2. Regular rate and rhythm. ABDOMEN: Soft. No tenderness. LABS: Hemoglobin is 14.8, white count 6.5. BUN of 39, creatinine is 2.05. DIAGNOSTIC IMPRESSION AND PLAN: Patient with possible left lower extremity cellulitis. The patient did show overall clinical improvement. Currently on Rocephin. May give a short course of oral Ceftin on discharge. Continue with supportive care. MMODL / IJN: [id number] /
--- NOTE | 2019-03-09 22:00 | PN ---
PROGRESS NOTE Patient is seen for followup for acute kidney injury. He was admitted to the hospital for shortness of breath. He is currently being treated for possible PE. The patient was initially diuresed. Diuretics have been decreased. Lasix is currently at 40 mg p.o. daily. Renal function has been slowly improving. Serum creatinine is down to 2.0 mg/dL from a peak of 2.4. CY inhibitor/angiotensin receptor blockers have been on hold. This morning, patient is comfortable. He denies any significant complaints. Blood pressure was 138/77, heart rate 90 per minute. He is afebrile. PHYSICAL EXAMINATION: Examination of the heart S1, S2. Examination of the lungs bilateral breath sounds are heard. Bilateral basal crackles are heard. Abdomen is soft, nontender. Examination lower extremities shows no significant edema. NETWORK SUPPORT ANALYST exam is grossly intact. LAB: Shows sodium 140, potassium 5.2, BUN 39, serum creatinine 2.05, albumin 3.4. ASSESSMENT: 1. Acute kidney injury, mostly acute tubular necrosis, slowly improving. All serologies were ordered due to underlying proteinuria, which are all negative. 2. Chronic kidney disease secondary to diabetic nephropathy. Will check baseline renal function as an outpatient. There are no labs available after 2016. 3. Dyslipidemia. 4. Volume overload status post diuresis. 5. Lower extremity cellulitis on the left side, maintained on antibiotics. 6. Hypokalemia secondary to diuretics, maintained on supplementation. PLAN: Continue current dose of oral Lasix. Followup as outpatient for CKD and monitor potassium levels and repeat labs in a.m. Avoid high potassium containing foods. MMODL / IJN: [id number] /
[2019-03-10] MEDS ORDERED: ALBUTEROL NEBULIZED 2.5 MG/3 ML INHALATION ONE (04:00)
[2019-03-10 05:34] LABS: Glucose,Whole Blood 109 mg/dL (75-99)
[2019-03-10] MEDS: INSULIN ASPART (NovoLOG) 100 UNIT/ML VIAL SQ SCH ×4 (05:53→21:20)
[2019-03-10] MEDS: ALBUTEROL NEBULIZED 2.5 MG/3 ML INHALATION SCH ×6 (05:58→23:46)
[2019-03-10] MEDS: PANTOPRAZOLE 40 MG TABLET PO SCH (06:24)
[2019-03-10] MEDS: HYDROcodone/APAP 10-325MG 1 EACH TAB PO PRN ×3 (06:24→21:19)
[2019-03-10] MEDS: glipiZIDE 5 MG TAB PO SCH ×2 (06:24→17:24)
[2019-03-10 07:09] LABS: Basophils # (A) 0.1 k/uL (0-0.2); Basophils % (A) 1 %; Eosinophils # (A) 0.2 k/uL (0-0.7); Eosinophils % (A) 3 %; HCT 43.8 % (39.0-53.0); HGB 14.3 gm/dL (13.0-17.5); Lymphocytes # (A) 1.4 k/uL (1.0-4.8); Lymphocytes % (A) 20 %; MCH 29.3 pg (25.0-35.0); MCHC 32.7 g/dL (31.0-37.0); MCV 89.6 fL (80.0-100.0); Mean Platelet Volume 7.8; Monocytes # (A) 0.6 k/uL (0-1.0); Monocytes % (A) 8 %; Neutrophils # (A) 4.4 k/uL (1.3-7.7); Neutrophils % (A) 65 %; Platelet Count 299 k/uL (150-450); Poikilocytosis Slight; RDW 14.7 % (11.5-15.5); WBC 6.8 k/uL (3.8-10.6)
[2019-03-10 07:33] LABS: Albumin 3.5 g/dL (3.5-5.0); Calcium 9.6 mg/dL (8.4-10.2); Potassium 5.8 mmol/L (3.5-5.1); Total Bilirubin 0.6 mg/dL (0.2-1.3); Total Protein 6.6 g/dL (6.3-8.2)
[2019-03-10] MEDS: hydrALAZINE HCL 25 MG TAB PO SCH ×2 (09:46→21:19)
[2019-03-10] MEDS: FUROSEMIDE 40 MG TAB PO SCH ×2 (09:46→17:24)
[2019-03-10] MEDS: MULTIVITAMINS, THERA 1 EACH TAB PO SCH (09:46)
[2019-03-10] MEDS: MINERAL OIL-WHITE PETROLATUM 120 GM JAR TOPICAL SCH ×2 (09:46→21:22)
[2019-03-10] MEDS: FERROUS SULFATE 325 MG TAB PO SCH (09:46)
[2019-03-10] MEDS: FENOFIBRATE 160 MG TAB PO SCH (09:46)
[2019-03-10] MEDS: APIXABAN 2.5 MG TABLET PO SCH ×2 (09:46→21:19)
[2019-03-10] MEDS: ATORVASTATIN 10 MG TAB PO SCH (09:46)
[2019-03-10] MEDS: METOPROLOL SUCCINATE (ER) 50 MG TAB.ER.24H PO SCH ×2 (09:46→21:19)
[2019-03-10] MEDS: SODIUM POLYSTYRENE SULFONATE 15 GM/60 ML BOTTLE PO STA ×2 (09:47→11:04)
[2019-03-10] MEDS: Febuxostat [Uloric] 80 MG PO SCH (10:23)
[2019-03-10] MEDS: FLUTICASONE 50MCG/SPRAY NASAL 16GM EA NOSTRIL SCH ×2 (10:24→21:22)
[2019-03-10] MEDS ORDERED: SODIUM POLYSTYRENE SULFONATE 15 GM/60 ML BOTTLE PO STA (10:26)
[2019-03-10 10:34] VITALS: BMI 41.8
[2019-03-10] MEDS: ERGOCALCIFEROL 50,000 UNIT CAP PO SCH (10:35)
[2019-03-10] MEDS: INSULIN DETEMIR (LEVEMIR) 100 UNIT/ML SYR SQ SCH (10:36)
[2019-03-10] MEDS: POTASSIUM CHLORIDE ER 10 MEQ TAB.ER.PRT PO SCH (11:04)
[2019-03-10 11:41] LABS: Glucose,Whole Blood 167 mg/dL (75-99)
--- NOTE | 2019-03-10 12:01 | P.PN ---
Subjective Progress Note Date: 03/10/19 This is a 68-year-old male patient who presented to the ER with complaints of increased shortness of breath for the past 5 days. Patient reports that he has been coughing. Patient denies fever. Patient has a past medical history of aortic valve replacement thousand [address] Styles, chest pain, CVA, diabetes mellitus, hyperlipidemia, hypertension, myocardial infarction, sleep apnea requiring CPAP and hypothyroidism. Chest x-ray completed showing radiographic findings suggest pulmonary edema. BNP elevated at 1040. Troponins also elevated 0.105, 0.096. EKG completed showing sinus tachycardia with premature atrial complexes. Left axis deviation. Patient started on heparin drip. Patient also started on IV Lasix 40 mg every 12 hours. Patient's creatinine elevated 2.41 and bun 43. Pulmonary, cardiology and nephrology services have been consulted. At this time patient is still complaining of shortness breath. 2-D echo has been ordered. Patient denies chest pain. Patient denies nausea vomiting or diarrhea. Patient denies any urinary burning or frequency. 03/04/2019 patient is starting to feel a little better. Shortness of breath is slowly improving. Patient followed by cardiology, pulmonary and nephrology and infectious disease. Echo shows an EF 50-55% ultrasound of the abdomen no renal mass or obstruction. Patient having urinary retention catheter will be inserted today. Patient denies any chest pain. Denies any nausea vomiting bowel movement changes. He is still having productive cough and sputum culture pending 03/05/19 Patient's shortness of breath is slowly improving. Sputum culture normal [place]. Bladder scan showed no evidence of urinary retention. Hernandez catheter not placed. Patient denies CP 03/06/2019 patient was seen and examined on the telemetry floor he is alert and oriented 3 in no apparent distress he is still complaining of cough and shortness of breath he is complaining of difficulty initiating urination otherwise he denies any complaints at this time there is no fever or chills no headache or dizziness no chest pain no nausea or vomiting no abdominal pain no diarrhea no burning was urination no frequency or urgency and no hematuria. 03/07/19-- the patient denies any fever or chills the patient breathing is slightly improved the patient cough is decreased intensity is 3 drainage and no chest pain no abdominal pain no nausea no vomiting and no diarrhea left leg swelling and redness has improved cardiology is recommending another 24-hour of observation with current diuretic therapy 03/08/2019 patient reporting improvement in his shortness of breath and lower extremity edema. Cardiology is cleared him for discharge from their standpoint. Chest x-ray showing a continuing left basilar infiltrate. Discussed with case with pulmonary service still be surgery reevaluate him. Patient started on Eliquis for possible PE. Patient denies any chest pain. Denies any nausea or vomiting. Denies any difficulty urinating. Reports having bowel movements. 03/09/2019 patient does not feel ready for discharge yet. He reports that he still having some shortness of breath especially with ambulating. Still feeling a little shaky. He ambulated in the hallway on room air satting 83%. Likely patient require home oxygen at discharge. He has been cleared by both cardiology and pulmonary services for discharge. The Eliquis has 0 co-pay. Eliquis was started for possible PE. Chest x-ray still struggling to correlate for CHF and cannot exclude underlying pneumonia. Had discussed case yesterday with pulmonary service. They felt the chest x-ray was showing improvement. Creatinine is at 2.05 On 03/10/2019 patient's alert and oriented 3. Patient is still having increased shortness of breath and cough. Discussed with case management will possible discharge to [facility] when ready. Potassium also high at 5.8. Discussed with nephrology services carefully ordered per nephrology services. This time patient denies chest pain. Patient denies nausea vomiting or diarrhea. Patient denies any urinary burning or frequency Objective - Vital Signs Vital signs: Vital Signs Temp 98.0 F 03/10/19 11:00 Pulse 96 03/10/19 11:10 Resp 20 03/10/19 11:00 BP 132/79 03/10/19 11:00 Pulse Ox 96 03/10/19 11:00 Intake & Output 03/09/19 03/10/19 03/10/19 18:59 06:59 18:59 Intake Total 598 250 220 Output Total 150 500 700 Balance 448 -250 -480 Weight 116.9 kg 117.4 kg Intake: IV 20 Invasive Line 3 20 Oral 598 250 200 Output: Urine 150 500 300 Stool 400 Other: Voiding Method Urinal Urinal Urinal # Voids 1 1 1 - Exam Head normocephalic Neck supple Lungs diminished bilaterally Heart regular rate and rhythm S1-S2, no rub or gallop Abdomen is soft nontender nondistended positive bowel sounds no hepatosplenome nuria Extremities no edema. Redness and left leg has improved. There is chronic changes Neuro alert and orientated to 3 - Labs CBC & Chem 7: 03/10/19 06:21 03/10/19 06:21 Labs: Abnormal Lab Results - Last 24 Hours (Table) 03/09/19 03/09/19 03/10/19 Range/Units 16:50 20:36 05:32 Potassium (3.5-5.1) mmol/L BUN (9-20) mg/dL Creatinine (0.66-1.25) mg/dL Glucose (74-99) mg/dL POC Glucose (mg/dL) 271 H 202 H 109 H (75-99) mg/dL 03/10/19 03/10/19 Range/Units 06:21 11:23 Potassium 5.8 H (3.5-5.1) mmol/L BUN 41 H (9-20) mg/dL Creatinine 2.05 H (0.66-1.25) mg/dL Glucose 106 H (74-99) mg/dL POC Glucose (mg/dL) 167 H (75-99) mg/dL Assessment and Plan Assessment: 1. Acute hypoxic respiratory failure secondary to an acute CHF exacerbation 2. Acute on chronic diastolic CHF exacerbation: Echo shows an EF of 50-55%. Patient is currently on oral Lasix. Has been cleared by cardiology for d ischarge 3. Possible PE: patient placed on Eliquis. Eliquis is covered. There is no co-pay. Elevated d-dimer of 1.48. VQ scan showing intermediate probability of PE. Dopplers of the lower extremities are negative for DVT. Per pulmonary they doubt patient has PE. repeat D-dimer 0.71. 4. Acute tracheobronchitis with possible pneumonia currently on Rocephin. Followed by infectious disease and pulmonary service. Chest x-ray showing continued left basilar infiltrate. 5. left leg extremity cellulitis. Improved. ID recommending Ceftin at discharge 6. Hypokalemia: Secondary to the diuretics. resolved 7. Acute kidney injury likely ATN versus cardiorenal. Patient followed by neph rology. Losartan's currently on hold ultrasound the kidneys show no mass or obstruction. Monitor closely while on the Lasix. 8. Elevated troponins. Initial troponin 0.105, 0.096. Secondary to patient's elevated renal function and hypoxia. Patient seen evaluated by cardiology 9. Diabetes mellitus type 2. Continue Lantus, Glucotrol and sliding scale 10. Urinary retention ruled out 11. History of aortic valve replacement in 2014 12. History of CVA 13. History of hyperlipidemia 14. History of essential hypertension 15. History of sleep apnea requiring CPAP machine at home 16. Hyperkalemia. Potassium 5.8. Discussed with nephrology services. Kayexlate ordered per nephrology DVT prophylaxis eliquis. GI prophylaxis Protonix Discussed case with case management rn patient is agreeable to discharge to [facility] when medically stable I performed an examination of the patient and discussed their management with the Nurse Practitioner. I have reviewed the Nurse Practitioner's notes and agree with the documented findings and plan of care
--- NOTE | 2019-03-10 13:44 | XR ---
EXAMINATION TYPE: XR chest 2V DATE OF EXAM: 03/10/2019 COMPARISON: Chest x-ray from 2 days ago and older studies. HISTORY: Increasing shortness of breath and chest pain TECHNIQUE: Frontal and lateral views of the chest are obtained. FINDINGS: The osseous structures remain intact. Cardiac silhouette size is stable and upper limits of normal with atherosclerotic thoracic aorta. Overlying sternal wires and mediastinal clips are redemo nstrated. There is lateral left basilar opacity. There is persistent small right pleural effusion see n best on lateral view. No new focal airspace opacity or pneumothorax. Suspect mild interstitial efren a with Annmarie B line in the left mid lung periphery. IMPRESSION: Overall stable findings, small right pleural effusion with mild interstitial edema. Patc hy lateral left basilar acute infiltrate and/or atelectasis all redemonstrated.
--- NOTE | 2019-03-10 15:07 | PN ---
PROGRESS NOTE Patient is seen for followup for acute kidney injury on top of chronic kidney disease. We did obtain his previous labs as outpatient and it looks like patient had a creatinine of about 1.7 in October of 2018 as well as January of 2019. He was admitted to the hospital with shortness of breath, fluid overload. CT scan showed intermediate possibility for PE and therefore patient is maintained on anticoagulation as well. Renal function improved to some degree during this hospitalization, was actually coming down from 2.4 to 2.0. However, it has stayed about there for the past 3 days. Patient is maintained on potassium supplementation. This morning, potassium was elevated. He did not receive his K-Dur and this is currently discontinued. Chest x-ray from yesterday continued to show some degree of pulmonary vascular congestion. Currently patient is maintained on Lasix 40 mg p.o. daily. PHYSICAL EXAMINATION: On examination, blood pressure was 132/79, heart rate 91. Examination shows trace edema bilaterally. Abdomen is soft, morbidly obese. LABS: Show sodium 141, potassium 5.8, chloride 107, BUN 41, serum creatinine 2.05, hemoglobin 14.3. ASSESSMENT: 1. Acute kidney injury mainly cardiorenal. Patient's renal function is improved slightly with creatinine down from 2.4 to 2.0 mg/dL. Patient remains mildly volume overloaded. I will increase his oral Lasix to 40 mg b.i.d. as he did have a creatinine of about 1.79 in October and January of 2019, as outpatient. Therefore, this is not a significant increase from his baseline creatinine. 2. Chronic kidney disease, most likely secondary to diabetic nephropathy. Serologies were ordered this admission which are negative. 3. Intermediate possibility for pulmonary embolism, maintained on anticoagulation. 4. Congestive heart failure, diastolic, acute, status post diuresis. 5. Left lower extremity cellulitis, maintained on antibiotics. 6. Hyperkalemia. Hold off on potassium supplementation and repeat labs in a.m. PLAN: DC potassium. Increase Lasix to twice a day as serum creatinine is currently not too far from his baseline and patient remains mildly volume overloaded. Patient will need followup as outpatient for CKD. MMODL / IJN: [id number] /
[2019-03-10 17:13] LABS: Glucose,Whole Blood 177 mg/dL (75-99)
[2019-03-10] MEDS ORDERED: NYSTAT-TRIAMCIN 100,000-0.1 UNIT/GM-% CREAM 30 GM TUBE TOPICAL SCH (21:00)
[2019-03-10] MEDS: TRIAMCINOLONE 0.1% CREAM 80 GM TUBE TOPICAL SCH (21:24)
[2019-03-10] MEDS: NYSTATIN 100,000UNIT/GM CREAM 30 GM TUBE TOPICAL SCH (21:24)
[2019-03-10 21:57] LABS: Glucose,Whole Blood 235 mg/dL (75-99)
[2019-03-10 22:45] LABS: DNA Double-Stranded Indetermin (NEGATIVE)
--- NOTE | 2019-03-10 23:26 | PN ---
PROGRESS NOTE DATE OF SERVICE: 03/10/2019. REASON FOR FOLLOWUP: Left lower extremity cellulitis. INTERVAL HISTORY: The patient is currently afebrile. The patient has been breathing more comfortably. Denies having any chest pain. Did have some cough. No abdominal pain. No pain to the left leg area. PHYSICAL EXAMINATION: Blood pressure 144/93 with a pulse of 92. Temperature 97.2. He is 92% on 2 L nasal cannula. General description is an elderly male lying in bed in no distress. Respiratory system: Unlabored breathing. Clear to auscultation anteriorly. Heart S1, S2. Regular rate and rhythm. ABDOMEN: Soft, no tenderness. Left leg with minimal redness. LABS: Hemoglobin is 14.8, white count 6.2, BUN of 41, creatinine 2.05. DIAGNOSTIC IMPRESSION AND PLAN: Patient admitted to the hospital with possible congestive heart failure exacerbation tracheobronchitis. X-rays revealed no evidence of any pneumonia. with a possible component of left lower extremity cellulitis. The patient has completed a course of IV Rocephin. We will apply Mycolog cream to the left leg area and monitor clinical course closely. Continue supportive care. MMODL / IJN: [id number] /
[2019-03-11] MEDS: ALBUTEROL NEBULIZED 2.5 MG/3 ML INHALATION SCH ×4 (03:29→15:34)
[2019-03-11 06:05] LABS: Glucose,Whole Blood 102 mg/dL (75-99)
[2019-03-11] MEDS: INSULIN ASPART (NovoLOG) 100 UNIT/ML VIAL SQ SCH ×2 (06:08→12:23)
[2019-03-11 06:19] LABS: Albumin 3.6 g/dL (3.5-5.0); Calcium 9.4 mg/dL (8.4-10.2); Potassium 4.6 mmol/L (3.5-5.1); Total Bilirubin 0.5 mg/dL (0.2-1.3); Total Protein 6.9 g/dL (6.3-8.2)
[2019-03-11] MEDS: HYDROcodone/APAP 10-325MG 1 EACH TAB PO PRN (06:29)
[2019-03-11] MEDS: PANTOPRAZOLE 40 MG TABLET PO SCH (06:29)
[2019-03-11] MEDS: glipiZIDE 5 MG TAB PO SCH (06:29)
[2019-03-11 07:52] VITALS: RESP 20
[2019-03-11] MEDS: INSULIN DETEMIR (LEVEMIR) 100 UNIT/ML SYR SQ SCH (08:24)
[2019-03-11] MEDS: METOPROLOL SUCCINATE (ER) 50 MG TAB.ER.24H PO SCH (08:25)
[2019-03-11] MEDS: MULTIVITAMINS, THERA 1 EACH TAB PO SCH (08:25)
[2019-03-11] MEDS: FERROUS SULFATE 325 MG TAB PO SCH (08:25)
[2019-03-11] MEDS: APIXABAN 2.5 MG TABLET PO SCH (08:25)
[2019-03-11] MEDS: FLUTICASONE 50MCG/SPRAY NASAL 16GM EA NOSTRIL SCH (08:25)
[2019-03-11] MEDS: FENOFIBRATE 160 MG TAB PO SCH (08:25)
[2019-03-11] MEDS: hydrALAZINE HCL 25 MG TAB PO SCH (08:25)
[2019-03-11] MEDS: ATORVASTATIN 10 MG TAB PO SCH (08:25)
[2019-03-11] MEDS: FUROSEMIDE 40 MG TAB PO SCH (08:25)
[2019-03-11] MEDS: Febuxostat [Uloric] 80 MG PO SCH (08:26)
[2019-03-11] MEDS: TRIAMCINOLONE 0.1% CREAM 80 GM TUBE TOPICAL SCH (08:30)
[2019-03-11] MEDS: NYSTATIN 100,000UNIT/GM CREAM 30 GM TUBE TOPICAL SCH (08:30)
[2019-03-11] MEDS: MINERAL OIL-WHITE PETROLATUM 120 GM JAR TOPICAL SCH (08:30)
--- NOTE | 2019-03-11 11:07 | P.PN ---
Subjective Patient is seen in follow-up for acute kidney injury on chronic kidney disease. Patient has chronic kidney disease stage III. Baseline creatinine near 1.7 secondary to diabetic kidney disease. Patient has diastolic CHF and is currently maintained on Lasix 40 mg orally twice daily. Admits to good urine output. No vomiting or diarrhea. Oral intake is good. Creatinine today is 2.25. Vital signs are stable. General: The patient appeared well nourished and normally developed. HEENT: Head exam is unremarkable. Neck is without jugular venous distension. LUNGS: Breath sounds decreased. HEART: Rate and Rhythm are regular. First and second heart sounds normal. No murmurs, rubs or gallops. ABDOMEN: Abdominal exam reveals normal bowel sounds. Non-tender and non- distended. No evidence of peritonitis. EXTREMITITES: No clubbing, cyanosis, or edema. Objective - Vital Signs Vital signs: Vital Signs Temp 98.4 F 03/11/19 07:50 Pulse 96 03/11/19 07:50 Resp 20 03/11/19 07:50 BP 136/68 03/11/19 07:50 Pulse Ox 93 L 03/11/19 07:50 Intake & Output 03/10/19 03/11/19 03/11/19 18:59 06:59 18:59 Intake Total 1280 310 240 Output Total 2200 250 Balance -920 60 240 Weight 117.4 kg 117.6 kg Intake: IV 80 10 Invasive Line 3 30 10 cefTRIAXone 1 gm In 50 Sodium Chloride 0.9% 50 ml @ 100 mls/hr IVPB Q24HR [facility] Rx#:[id number] Oral 1200 300 240 Output: Urine 1400 250 Stool 800 Other: Voiding Method Urinal Urinal # Voids 1 1 - Labs CBC & Chem 7: 03/10/19 06:21 03/11/19 05:28 Labs: Abnormal Lab Results - Last 24 Hours (Table) 03/06/19 03/10/19 03/10/19 Range/Units 14:57 11:23 17:03 BUN (9-20) mg/dL Creatinine (0.66-1.25) mg/dL Glucose (74-99) mg/dL POC Glucose (mg/dL) 167 H 177 H (75-99) mg/dL Double Strand DNA Ab Indetermin H (NEGATIVE) 03/10/19 03/11/19 03/11/19 Range/Units 20:49 05:28 06:03 BUN 41 H (9-20) mg/dL Creatinine 2.25 H (0.66-1.25) mg/dL Glucose 107 H (74-99) mg/dL POC Glucose (mg/dL) 235 H 102 H (75-99) mg/dL Double Strand DNA Ab (NEGATIVE) Assessment and Plan Plan: Assessment: 1. Acute kidney injury mostly prerenal secondary to cardiorenal syndrome. Renal function is slightly worse today. Creatinine 2.25. 2. Chronic kidney disease stage III secondary to diabetic kidney disease. Serologic workup has been negative. Baseline creatinine near 1.7 from October and January 2019. 3. Insulin-dependent diabetes mellitus. 4. Hyperkalemia secondary to acute kidney injury. Better. 5. Diastolic CHF. 6. Hypertension with chronic kidney disease. Controlled. Plan: Maintain Lasix 40 mg orally twice daily. Avoid nephrotoxins. Repeat electrolytes in the morning.
[2019-03-11 11:21] LABS: Glucose,Whole Blood 206 mg/dL (75-99)
[2019-03-11 11:34] VITALS: BP 117/76; PULSE 97; TEMP 98.1
--- NOTE | 2019-03-11 13:28 | P.DS ---
Providers Date of admission: 03/02/19 17:29 Expected date of discharge: 03/11/19 Attending physician: Navdeep Rayo Consults: 03/02/19 17:29 Consult Physician Routine Consulting Provider: Percy Medina Consult Reason/Comments: CHF Do you want consulting provider notified?: Yes Consult Physician Routine Consulting Provider: Alcon Gallagher Consult Reason/Comments: CHF Do you want consulting provider notified?: Yes 03/03/19 10:07 Consult Physician Routine Consulting Provider: Kate Terrazas Consult Reason/Comments: MARIANA Do you want consulting provider notified?: Yes 03/03/19 12:53 Consult Physician Routine Consulting Provider: Serge Macdonald Consult Reason/Comments: Bilateral lower extreme a cellulitis Do you want consulting provider notified?: Yes Primary care physician: Navdeep Rayo [facility] Course: Discharge diagnosis 1. Acute hypoxic respiratory failure secondary to an acute CHF exacerbation 2. Acute on chronic diastolic CHF exacerbation: Echo shows an EF of 50-55%. Patient is currently on oral Lasix. Has been cleared by cardiology for discharge. Nephrology is recommending Lasix 40 mg twice a day 3. Possible PE: patient placed on Eliquis per cardiology. Eliquis is covered. There is no co-pay. Elevated d-dimer of 1.48. VQ scan showing intermediate probability of PE. Dopplers of the lower extremities are negative for DVT. Per pulmonary they doubt patient has PE. repeat D-dimer 0.71. 4. Acute tracheobronchitis with possible pneumonia currently on Rocephin. Followed by infectious disease and pulmonary service. Chest x-ray showing co ntinued left basilar infiltrate. Per infectious disease patient completed treatment with Rocephin 5. left leg extremity cellulitis. Improved. Completed treatment with Rocephin. There is a mild leg rash and dermatitis infectious diseases recommending Mycolog for 5 more days 6. Hypokalemia: Secondary to the diuretics. resolved 7. Acute kidney injury likely ATN versus cardiorenal. Patient followed by nephrology. Diovan discontinued during this admission due to elevated kidney functions. ultrasound the kidneys show no mass or obstruction. Monitor closely while on the Lasix. 8. Elevated troponins. Initial troponin 0.105, 0.096. Secondary to patient's elevated renal function and hypoxia. Patient seen evaluated by cardiology 9. Diabetes mellitus type 2. Continue Lantus, Glucotrol and sliding scale 10. Urinary retention ruled out 11. History of aortic valve replacement in 2014 12. History of CVA 13. History of hyperlipidemia 14. History of essential hypertension 15. History of sleep apnea requiring CPAP machine at home 16. Hyperkalemia. Potassium 5.8. Resolved with Kayexalate. Potassium level is now 4.6. We'll hold off on any potassium supplement at this point. Will of patient follow-up in the office to check BMP Hospital course This is a 68-year-old male patient who presented to the ER with complaints of increased shortness of breath for the past 5 days. Patient reports that he has been coughing. Patient denies fever. Patient has a past medical history of aortic valve replacement thousand [address] Styles, chest pain, CVA, padmini betes mellitus, hyperlipidemia, hypertension, myocardial infarction, sleep apnea requiring CPAP and hypothyroidism. Chest x-ray completed showing radiographic findings suggest pulmonary edema. BNP elevated at 1040. Troponins also elevated 0.105, 0.096. EKG completed showing sinus tachycardia with premature atrial complexes. Left axis deviation. Patient started on heparin drip. Patient also started on IV Lasix 40 mg every 12 hours. Patient's creatinine elevated 2.41 and bun 43. Pulmonary, cardiology and nephrology services have been consulted. At this time patient is still complaining of shortness breath. 2-D echo has been ordered. Patient denies chest pain. Patient denies nausea vomiting or diarrhea. Patient denies any urinary burning or frequency. 03/04/2019 patient is starting to feel a little better. Shortness of breath is slowly improving. Patient followed by cardiology, pulmonary and nephrology and infectious disease. Echo shows an EF 50-55% ultrasound of the abdomen no renal mass or obstruction. Patient having urinary retention catheter will be inserted today. Patient denies any chest pain. Denies any nausea vomiting bowel movement changes. He is still having productive cough and sputum culture pending 03/05/19 Patient's shortness of breath is slowly improving. Sputum culture normal [place]. Bladder scan showed no evidence of urinary retention. Hernandez catheter not placed. Patient denies CP 03/06/2019 patient was seen and examined on the telemetry floor he is alert and oriented 3 in no apparent distress he is still complaining of cough and shor tness of breath he is complaining of difficulty initiating urination otherwise he denies any complaints at this time there is no fever or chills no headache or dizziness no chest pain no nausea or vomiting no abdominal pain no diarrhea no burning was urination no frequency or urgency and no hematuria. 03/07/19-- the patient denies any fever or chills the patient breathing is slightly improved the patient cough is decreased intensity is 3 drainage and no chest pain no abdominal pain no nausea no vomiting and no diarrhea left leg swelling and redness has improved cardiology is recommending another 24-hour of observation with current diuretic therapy 03/08/2019 patient reporting improvement in his shortness of breath and lower extremity edema. Cardiology is cleared him for discharge from their standpoint. Chest x-ray showing a continuing left basilar infiltrate. Discussed with case with pulmonary service still be surgery reevaluate him. Patient started on Eliquis for possible PE. Patient denies any chest pain. Denies any nausea or vomiting. Denies any difficulty urinating. Reports having bowel movements. 03/09/2019 patient does not feel ready for discharge yet. He reports that he still having some shortness of breath especially with ambulating. Still feeling a little shaky. He ambulated in the hallway on room air satting 83%. Likely patient require home oxygen at discharge. He has been cleared by both cardiology and pulmonary services for discharge. The Eliquis has 0 co-pay. Eliquis was started for possible PE. Chest x-ray still struggling to correlate for CHF and cannot exclude underlying pneumonia. Had discussed case yesterday with pulmonary service. They felt the chest x-ray was showing improvement. Creatinine is at 2.05 On 03/10/2019 patient's alert and oriented 3. Patient is still having increased shortness of breath and cough. Discussed with case management will possible discharge to [facility] when ready. Potassium also high at 5.8. Disc ussed with nephrology services carefully ordered per nephrology services. This time patient denies chest pain. Patient denies nausea vomiting or diarrhea. Patient denies any urinary burning or frequency 03/11/2019 nephrology did increase patient's Lasix to 40 mg twice a day for his CHF. He did have some hyperkalemia yesterday which now resolved after Kayexalate. Potassium is 4.6. At this time patient is off of any potassium supplement. Also his Diovan was discontinued during this admission due to his renal function. Patient will follow-up with nephrology in 1 week. Patient will follow up with Dr. Rayo on Friday for further follow-up on blood work check BMP monitor kidney function and potassium loss level. Creatinine at discharge is 2.25 nephrology is recommending Lasix 40 mg twice a day at discharge. Patient refused to go to [facility] after discharge. And has also declined home care. He has been up and walking with physical therapy. He is requiring home oxygen. 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 Patient did complete treatment for his pneumonia during his hospitalization. No further need for antibiotic. He will continue the Mycolog cream to the left leg for another 5 days per infectious disease recommendations. Patient is medical stable for discharge please refer to chart for any further details. Check BMP on Friday I performed an examination of the patient and discussed their management with the physician Levelman. I have reviewed the Physician Levelman's notes and agree with the documented findings and plan of care Patient Condition at Discharge: Stable Plan - Discharge Summary Discharge Rx Participant: No New Discharge Prescriptions: New Apixaban [Eliquis] 2.5 mg PO BID #60 tablet Furosemide [Lasix] 40 mg PO BID@0900,1600 #60 tab Nystatin/Triamcin Cream [Mycolog 100,000-0.1 Unit/gm-% Cream] 1 applic TOPICAL BID 5 Days #30 gm Continue Cyclobenzaprine [Flexeril] 10 mg PO HS PRN PRN Reason: Muscle Pain Insulin Glargine,Hum.rec.anlog [Lantus Solostar] 50 unit SQ QAM Triamcinolone Acetonide [Nasacort] 1 spray EA NOSTRIL BID glipiZIDE [Glucotrol] 5 mg PO AC-BID tab Ferrous Sulfate [Iron (65 MG Elemental)] 325 mg PO DAILY #1 tab Febuxostat [Uloric] 80 mg PO DAILY traMADol HCL [Ultram] 50 mg PO Q6H Simvastatin [Zocor] 20 mg PO DAILY Fenofibrate Nanocrystallized [Tricor] 145 mg PO DAILY Omeprazole 20 mg PO DAILY Albuterol Sulfate [Proventil Hfa] 2 puff INHALATION RT-Q4H Hydrocodone/Acetaminophen [Cunningham 10-325] 1 tab PO Q6H Metoprolol Succinate [Toprol XL] 50 mg PO BID hydrALAZINE HCL [Apresoline] 25 mg PO BID Multivitamins, Thera [Multivitamin (formulary)] 1 tab PO DAILY Ergocalciferol [Vitamin D2 (DRISDOL)] 50,000 unit PO Q7D Discontinued Aspirin EC [Ecotrin Low Dose] 162 mg PO DAILY #1 tablet.dr Furosemide [Lasix] 40 mg PO DAILY #7 tab Potassium Chloride ER [K-Dur 10] 10 meq PO DAILY Valsartan [Diovan] 320 mg PO DAILY Discharge Medication List Cyclobenzaprine [Flexeril] 10 mg PO HS PRN 01/09/15 [History] Insulin Glargine,Hum.rec.anlog [Lantus Solostar] 50 unit SQ QAM 01/09/15 [History] Triamcinolone Acetonide [Nasacort] 1 spray EA NOSTRIL BID 02/06/15 [History] glipiZIDE [Glucotrol] 5 mg PO AC-BID tab 02/13/15 [Rx] Ferrous Sulfate [Iron (65 MG Elemental)] 325 mg PO DAILY #1 tab 02/16/15 [Rx] Albuterol Sulfate [Proventil Hfa] 2 puff INHALATION RT-Q4H 03/02/19 [History] Ergocalciferol [Vitamin D2 (DRISDOL)] 50,000 unit PO Q7D 03/02/19 [History] Febuxostat [Uloric] 80 mg PO DAILY 03/02/19 [History] Fenofibrate Nanocrystallized [Tricor] 145 mg PO DAILY 03/02/19 [History] Hydrocodone/Acetaminophen [Cunningham 10-325] 1 tab PO Q6H 03/02/19 [History] Metoprolol Succinate [Toprol XL] 50 mg PO BID 03/02/19 [History] Multivitamins, Thera [Multivitamin (formulary)] 1 tab PO DAILY 03/02/19 [History] Omeprazole 20 mg PO DAILY 03/02/19 [History] Simvastatin [Zocor] 20 mg PO DAILY 03/02/19 [History] hydrALAZINE HCL [Apresoline] 25 mg PO BID 03/02/19 [History] traMADol HCL [Ultram] 50 mg PO Q6H 03/02/19 [History] Apixaban [Eliquis] 2.5 mg PO BID #60 tablet 03/11/19 [Rx] Furosemide [Lasix] 40 mg PO BID@0900,1600 #60 tab 03/11/19 [Rx] Nystatin/Triamcin Cream [Mycolog 100,000-0.1 Unit/gm-% Cream] 1 applic TOPICAL BID 5 Days #30 gm 03/11/19 [Rx] Follow up Appointment(s)/Referral(s): Navdeep Rayo MD [Primary Care Provider] - 03/15/19 Kate Terrazas MD [STAFF PHYSICIAN] - 1 Week Fadia Bolaños MD [STAFF PHYSICIAN] - 1 Week Activity/Diet/Wound Care/Special Instructions: Patient requires supplemental oxygen with exercise secondary to dx of CHF Diet: cardiac, diabetic Activity: as tolerated Discharge Disposition: HOME SELF-CARE
--- NOTE | 2019-03-11 14:10 | PN ---
PROGRESS NOTE DATE OF SERVICE: 03/11/2019 REASON FOR FOLLOWUP: Left leg cellulitis. INTERVAL HISTORY: The patient is currently afebrile. Patient has been breathing comfortably. Patient denies having any chest pain. Occasional cough. No abdominal pain. No pain to the left leg area. PHYSICAL EXAMINATION: Blood pressure 117/76, pulse of 97, temperature 98.1. He is 90% on room air. General description is an elderly male, up in the bed in no distress. RESPIRATORY SYSTEM: Unlabored breathing, decreased intensity of breath sounds, no wheeze. HEART: S1, S2. Regular rate and rhythm. ABDOMEN: Soft, no tenderness. EXTREMITIES: Left leg with minimal erythema, normal to touch and no drainage. LABS: BUN of 41, creatinine 2.25. DIAGNOSTIC IMPRESSION AND PLAN: Patient with left lower leg cellulitis. Patient to continue with the Mycolog cream twice a day for about a week, along with mild compression dressing. Continue supportive care. MMODL / IJN: [id number] /
== END 2019-03-11 15:58 | disposition home or self-care (01) | DRG 291 ==
LOC: EC 16:13 → 3SCARD 17:29
PROVIDERS: ADMIT Internal Medicine; ATTEND Internal Medicine
PROC: 5A09357 Assistance with Respiratory Ventilation, Less than 24 Consecutive Hours, Continuous Positive Airway Pressure (ICD-10-PCS; principal; 2019-03-02)
DX: I13.0 Hypertensive heart and chronic kidney disease with heart failure and stage 1 through stage 4 chronic kidney disease, or unspecified chronic kidney disease (principal); J96.01 Acute respiratory failure with hypoxia; I26.99 Other pulmonary embolism without acute cor pulmonale; I50.33 Acute on chronic diastolic (congestive) heart failure; J18.9 Pneumonia, unspecified organism; N17.0 Acute kidney failure with tubular necrosis; L03.115 Cellulitis of right lower limb; L03.116 Cellulitis of left lower limb; Z68.41 Body mass index [BMI] 40.0-44.9, adult; E11.22 Type 2 diabetes mellitus with diabetic chronic kidney disease; E11.42 Type 2 diabetes mellitus with diabetic polyneuropathy; E11.649 Type 2 diabetes mellitus with hypoglycemia without coma; E66.01 Morbid (severe) obesity due to excess calories; E87.5 Hyperkalemia; E86.9 Volume depletion, unspecified; N18.3 Chronic kidney disease, stage 3 (moderate); E03.9 Hypothyroidism, unspecified; E78.5 Hyperlipidemia, unspecified; E87.6 Hypokalemia; F32.9 Major depressive disorder, single episode, unspecified; G47.33 Obstructive sleep apnea (adult) (pediatric); I25.10 Atherosclerotic heart disease of native coronary artery without angina pectoris; I25.2 Old myocardial infarction; I45.10 Unspecified right bundle-branch block; I49.1 Atrial premature depolarization; J20.9 Acute bronchitis, unspecified; L30.9 Dermatitis, unspecified; T50.2X5A Adverse effect of carbonic-anhydrase inhibitors, benzothiadiazides and other diuretics, initial encounter; M10.9 Gout, unspecified; R77.9 Abnormality of plasma protein, unspecified; I87.8 Other specified disorders of veins; I34.0 Nonrheumatic mitral (valve) insufficiency; Z79.4 Long term (current) use of insulin; Z79.82 Long term (current) use of aspirin; Z79.899 Other long term (current) drug therapy; Z95.3 Presence of xenogenic heart valve; Z91.19 Patient's noncompliance with other medical treatment and regimen; Z86.73 Personal history of transient ischemic attack (TIA), and cerebral infarction without residual deficits; Z85.038 Personal history of other malignant neoplasm of large intestine; Z90.49 Acquired absence of other specified parts of digestive tract; Z88.8 Allergy status to other drugs, medicaments and biological substances; Z93.2 Ileostomy status; Z92.21 Personal history of antineoplastic chemotherapy; Z82.49 Family history of ischemic heart disease and other diseases of the circulatory system
CPT/HCPCS: 36415; 71045; 71046; 76770; 76857; 78582; 80048; 80053; 81001; 83036; 83516; 83605; 83735; 83880; 84484; 85025; 85379; 85610; 85730; 86038; 86160; 86225; 86255; 86334; 86335; 86706; 86803; 87040; 87070; 87205; 87340; 93005; 93306; 93970; 94640; 94660; 94760; 96365; 96366; 96375; 96376; 99291

== ENCOUNTER → 2020-08-31 | Outpatient (CLI) | payer MEDICARE ==
--- NOTE | 2020-08-31 12:29 | US ---
EXAMINATION TYPE: US thyroid st tissue head/neck DATE OF EXAM: 08/31/2020 COMPARISON: NONE CLINICAL HISTORY: R94.6 Abnormal Thyroid Labs. Very difficult and limited exam as patient is breathin g very heavily and unable to lay flat or move his head GLAND SIZE: Right Lobe: 4.5 x 2.8 x 2.6 cm Overall Parenchyma: heterogenous Left Lobe: 4.1 x 2.3 x 2.3 cm Overall Parenchyma: heterogeneous Isthmus Thickness: 0.8 cm NODULES RIGHT: # of nodules measured on right: 1 1. 1.3 X 1.3 x 1.5 cm echogenic solid nodule at the mid pole with well-defined margins; . This nod ule is wider than tall and shows intranodular vascularity. Prior size: No previous LEFT: # of nodules measured on left: 1. X x cm nodule at the pole with poorly defined margins; . This nodule is and shows . Prior size: x x cm 2. 0.9 X 0.7 x 0.8 cm hypoechoic solid nodule at the mid pole with poorly defined margins; . This n odule is wider than tall and shows no intranodular vascularity. Prior size: no previous ISTHMUS: # of nodules measured in the isthmus: 0 Bilateral neck scanned, no evidence of lymphadenopathy. Very limited exam. Bilateral heterogeneous thyroid glands IMPRESSION: Dominant nodule right lobe of the thyroid, moderately suspicious, TR 4, follow-up is recommended in o ne year
== END | disposition home or self-care (01) ==
LOC: RADUSWWP 09:41
PROVIDERS: ATTEND Internal Medicine
DX: R94.6 Abnormal results of thyroid function studies (principal)
CPT/HCPCS: 76536

== ENCOUNTER → 2020-11-10 | Outpatient (CLI) | payer MEDICARE ==
[2020-11-10 23:47] LABS: T4, Free (Free Thyroxine) 1.8 ng/dL (0.80-1.80)
== END | disposition home or self-care (01) ==
LOC: LABWHC1 14:42
PROVIDERS: ATTEND Internal Medicine Endocrinology, Diabetes & Metabolism
DX: E05.20 Thyrotoxicosis with toxic multinodular goiter without thyrotoxic crisis or storm (principal)
CPT/HCPCS: 36415; 84439; 84443; 84445; 84480

== ENCOUNTER 2021-02-12 10:10 | Inpatient (IN) | payer MEDICARE ==
--- NOTE | 2021-02-12 10:45 | ED ---
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 Patient states he has had difficulty breathing for the past several months. He does state that it might be slightly worse today than prior. He denies chest pain. Denies fever. He states he has some minimal swelling in his legs but this is unchanged from baseline. He denies a known contact with coronavirus. - Related Data Home Medications Medication Instructions Recorded Confirmed Cyclobenzaprine [Flexeril] 10 mg PO HS PRN 01/09/15 03/02/19 Insulin Glargine,Hum.rec.anlog 50 unit SQ QAM 01/09/15 03/02/19 [Lantus Solostar] Triamcinolone Acetonide [Nasacort] 1 spray EA NOSTRIL BID 02/06/15 03/02/19 Albuterol Sulfate [Proventil Hfa] 2 puff INHALATION RT-Q4H 03/02/19 03/02/19 Ergocalciferol [Vitamin D2 50,000 unit PO Q7D 03/02/19 03/02/19 (DRISDOL)] Febuxostat [Uloric] 80 mg PO DAILY 03/02/19 03/02/19 Fenofibrate Nanocrystallized 145 mg PO DAILY 03/02/19 03/02/19 [Tricor] Hydrocodone/Acetaminophen [[place]wood 1 tab PO Q6H 03/02/19 03/02/19 10-325] Metoprolol Succinate [Toprol XL] 50 mg PO BID 03/02/19 03/02/19 Multivitamins, Thera [Multivitamin 1 tab PO DAILY 03/02/19 03/02/19 (formulary)] Omeprazole 20 mg PO DAILY 03/02/19 03/02/19 Simvastatin [Zocor] 20 mg PO DAILY 03/02/19 03/02/19 hydrALAZINE HCL [Apresoline] 25 mg PO BID 03/02/19 03/02/19 traMADol HCL [Ultram] 50 mg PO Q6H 03/02/19 03/02/19 Previous Rx's Medication Instructions Recorded glipiZIDE [Glucotrol] 5 mg PO AC-BID tab 02/13/15 Ferrous Sulfate [Iron (65 MG 325 mg PO DAILY #1 tab 02/16/15 Elemental)] Apixaban [Eliquis] 2.5 mg PO BID #60 tablet 03/11/19 Furosemide [Lasix] 40 mg PO BID@0900,1600 #60 tab 03/11/19 Nystatin/Triamcin Cream [Mycolog 1 applic TOPICAL BID 5 Days #30 gm 03/11/19 100,000-0.1 Unit/gm-% Cream] Allergies Allergy/AdvReac Type Severity Reaction Status Date / Time allopurinol Allergy Rash/Hives Verified 02/12/21 10:14 Review of Systems ROS Statement: Those systems with pertinent positive or pertinent negative responses have been documented in the HPI. ROS Other: All systems not noted in ROS Statement are negative. Past Medical History Past Medical History: Cancer, Chest Pain / Angina, CVA/TIA, Diabetes Mellitus, Hyperlipidemia, Hypertension, Myocardial Infarction ([place]), Sleep Apnea/CPAP/BIPAP, Thyroid Disorder Additional Past Medical History / Comment(s): [place] X2, LAST 06/2013. AORTIC STENOSIS. = SHORT OF BREATH W/ ACTIVITY. 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 HX KIDNEY FAILURE IN PAST. HX GOUT. NEUROPATHY KIM FEET. USES C-PAP. OVERACTIVE THYROID HX. EDEMA IN LEGS. HX BOWEL RESECTION D/T CA, HAS ILEOSTOMY, IRRITATION AT SITE. Last Myocardial Infarction Date:: 02/2013 History of Any Multi-Drug Resistant Organisms: None Reported Past Surgical History: Bowel Resection, Cardiac Valve Replacement, Heart Catheterization, Hernia Repair, Orthopedic Surgery Additional Past Surgical History / Comment(s): CARDIAC CATH X3. LT SHOULDER SURG. BOWEL SURG,. aortic valve replacement 02/06/15 Past Anesthesia/Blood Transfusion Reactions: No Reported Reaction Past Psychological History: Depression Smoking Status: Never smoker Past Alcohol Use History: Occasional Past Drug Use History: Marijuana - Past Family History Mother Family Medical History: Coronary Artery Disease (CAD), Hypertension Father Family Medical History: No Reported History Additional Family Medical History / Comment(s): heart valve disorders General Exam Limitations: physical limitation General appearance: alert, in distress Head exam: Present: atraumatic, normocephalic Eye exam: Present: normal appearance, PERRL ENT exam: Present: normal exam Neck exam: Present: normal inspection. Absent: tenderness, meningismus Respiratory exam: Present: respiratory distress, rales, rhonchi, accessory muscle use Cardiovascular Exam: Present: tachycardia, irregular rhythm GI/Abdominal exam: Present: soft. Absent: distended, tenderness, guarding Extremities exam: Present: normal capillary refill, pedal edema (trace) Neurological exam: Present: alert, oriented X3, CN II-XII intact. Absent: motor sensory deficit Skin exam: Present: warm, dry, pallor Course Vital Signs 02/12/21 02/12/21 02/12/21 10:14 10:30 10:44 Temperature 96.7 F L Pulse Rate 111 H 126 H Respiratory 26 H 25 H 27 H Rate Blood Pressure 142/87 O2 Sat by Pulse 96 97 Oximetry 02/12/21 02/12/21 11:53 12:21 Temperature Pulse Rate 130 H 138 H Respiratory 30 H 18 Rate Blood Pressure 113/86 113/88 O2 Sat by Pulse 97 97 Oximetry EKG Findings - EKG Comments: EKG Findings:: EKG: Atrial fibrillation with RVR, rate 1:30, QRS duration 172, QTC 5:15, right bundle branch block Medical Decision Making - Medical Decision Making 70-year-old male with dyspnea. Patient has bilateral rhonchi, bilateral Rales. He is in A. fib without a reported history of atrial fibrillation. The patient is on Eliquis. He was sent in by pulmonology for evaluation and admission for hypoxia. Chest x-ray showing pulmonary edema. Patient started on Lasix, Cardizem. He does have an elevated BNP, mildly elevated troponin which will be trended. CHF, a-fib RVR - Lab Data Result diagrams: 02/12/21 10:43 02/12/21 10:43 Lab Results 02/12/21 02/12/21 02/12/21 Range/Units 10:43 10:43 10:43 WBC 9.6 (3.8-10.6) k/uL RBC 4.92 (4.30-5.90) m/uL Hgb 14.1 (13.0-17.5) gm/dL Hct 43.4 (39.0-53.0) % MCV 88.2 (80.0-100.0) fL MCH 28.7 (25.0-35.0) pg MCHC 32.5 (31.0-37.0) g/dL RDW 16.2 H (11.5-15.5) % Plt Count 291 (150-450) k/uL MPV 7.9 Neutrophils % 83 % Lymphocytes % 10 % Monocytes % 6 % Eosinophils % 1 % Basophils % 0 % Neutrophils # 7.9 H (1.3-7.7) k/uL Lymphocytes # 0.9 L (1.0-4.8) k/uL Monocytes # 0.6 (0-1.0) k/uL Eosinophils # 0.1 (0-0.7) k/uL Basophils # 0.0 (0-0.2) k/uL Hypochromasia Slight Anisocytosis Slight PT 12.5 H (9.0-12.0) sec INR 1.2 H (<1.2) APTT 26.5 (22.0-30.0) sec Sodium 140 (137-145) mmol/L Potassium 4.7 (3.5-5.1) mmol/L Chloride 110 H (98-107) mmol/L Carbon Dioxide 20 L (22-30) mmol/L Anion Gap 10 mmol/L BUN 58 H (9-20) mg/dL Creatinine 2.40 H (0.66-1.25) mg/dL Est GFR (CKD-EPI)AfAm 31 (>60 ml/min/1.73 sqM) Est GFR (CKD-EPI)NonAf 27 (>60 ml/min/1.73 sqM) Glucose 34 L* (74-99) mg/dL POC Glucose (mg/dL) (75-99) mg/dL POC Glu Hydroponics Grower ID Plasma Lactic Acid Huber (0.7-2.0) mmol/L Calcium 9.5 (8.4-10.2) mg/dL Total Bilirubin 0.8 (0.2-1.3) mg/dL AST 29 (17-59) U/L ALT 16 (4-49) U/L Alkaline Phosphatase 52 (38-126) U/L Troponin I (0.000-0.034) ng/mL NT-Pro-B Natriuret Pep pg/mL Total Protein 6.8 (6.3-8.2) g/dL Albumin 3.7 (3.5-5.0) g/dL Coronavirus (PCR) (Not Detectd) 02/12/21 02/12/21 02/12/21 Range/Units 10:43 10:43 10:43 WBC (3.8-10.6) k/uL RBC (4.30-5.90) m/uL Hgb (13.0-17.5) gm/dL Hct (39.0-53.0) % MCV (80.0-100.0) fL MCH (25.0-35.0) pg MCHC (31.0-37.0) g/dL RDW (11.5-15.5) % Plt Count (150-450) k/uL MPV Neutrophils % % Lymphocytes % % Monocytes % % Eosinophils % % Basophils % % Neutrophils # (1.3-7.7) k/uL Lymphocytes # (1.0-4.8) k/uL Monocytes # (0-1.0) k/uL Eosinophils # (0-0.7) k/uL Basophils # (0-0.2) k/uL Hypochromasia Anisocytosis PT (9.0-12.0) sec INR (<1.2) APTT (22.0-30.0) sec Sodium (137-145) mmol/L Potassium (3.5-5.1) mmol/L Chloride (98-107) mmol/L Carbon Dioxide (22-30) mmol/L Anion Gap mmol/L BUN (9-20) mg/dL Creatinine (0.66-1.25) mg/dL Est GFR (CKD-EPI)AfAm (>60 ml/min/1.73 sqM) Est GFR (CKD-EPI)NonAf (>60 ml/min/1.73 sqM) Glucose (74-99) mg/dL POC Glucose (mg/dL) (75-99) mg/dL POC Glu Hydroponics Grower ID Plasma Lactic Acid Huber 0.8 (0.7-2.0) mmol/L Calcium (8.4-10.2) mg/dL Total Bilirubin (0.2-1.3) mg/dL AST (17-59) U/L ALT (4-49) U/L Alkaline Phosphatase (38-126) U/L Troponin I 0.044 H* (0.000-0.034) ng/mL NT-Pro-B Natriuret Pep 5770 pg/mL Total Protein (6.3-8.2) g/dL Albumin (3.5-5.0) g/dL Coronavirus (PCR) (Not Detectd) 02/12/21 02/12/21 Range/Units 10:43 11:46 WBC (3.8-10.6) k/uL RBC (4.30-5.90) m/uL Hgb (13.0-17.5) gm/dL Hct (39.0-53.0) % MCV (80.0-100.0) fL MCH (25.0-35.0) pg MCHC (31.0-37.0) g/dL RDW (11.5-15.5) % Plt Count (150-450) k/uL MPV Neutrophils % % Lymphocytes % % Monocytes % % Eosinophils % % Basophils % % Neutrophils # (1.3-7.7) k/uL Lymphocytes # (1.0-4.8) k/uL Monocytes # (0-1.0) k/uL Eosinophils # (0-0.7) k/uL Basophils # (0-0.2) k/uL Hypochromasia Anisocytosis PT (9.0-12.0) sec INR (<1.2) APTT (22.0-30.0) sec Sodium (137-145) mmol/L Potassium (3.5-5.1) mmol/L Chloride (98-107) mmol/L Carbon Dioxide (22-30) mmol/L Anion Gap mmol/L BUN (9-20) mg/dL Creatinine (0.66-1.25) mg/dL Est GFR (CKD-EPI)AfAm (>60 ml/min/1.73 sqM) Est GFR (CKD-EPI)NonAf (>60 ml/min/1.73 sqM) Glucose (74-99) mg/dL POC Glucose (mg/dL) 34 L (75-99) mg/dL POC Glu Hydroponics Grower ID Adrienne White Plasma Lactic Acid Huber (0.7-2.0) mmol/L Calcium (8.4-10.2) mg/dL Total Bilirubin (0.2-1.3) mg/dL AST (17-59) U/L ALT (4-49) U/L Alkaline Phosphatase (38-126) U/L Troponin I (0.000-0.034) ng/mL NT-Pro-B Natriuret Pep pg/mL Total Protein (6.3-8.2) g/dL Albumin (3.5-5.0) g/dL Coronavirus (PCR) Not Detected (Not Detectd) Critical Care Time Critical Care Time: Yes Total Critical Care Time: 35 Disposition Clinical Impression: S/P aortic valve replacement, Congestive heart failure, Atrial fibrillation with RVR Disposition: ADMITTED IP TO THIS [facility] Condition: Stable Is patient prescribed a controlled substance at d/c from ED?: No Referrals: Navdeep Rayo MD [Primary Care Provider] - 1-2 days Decision to Admit Reason: Admit from EC Decision Date: 02/12/21 Decision Time: 12:34
[2021-02-12 11:11] LABS: Anisocytosis Slight; Basophils % (A) 0 %; Eosinophils # (A) 0.1 k/uL (0-0.7); Eosinophils % (A) 1 %; HCT 43.4 % (39.0-53.0); HGB 14.1 gm/dL (13.0-17.5); Hypochromasia Slight; Lymphocytes # (A) 0.9 k/uL (1.0-4.8); Lymphocytes % (A) 10 %; MCH 28.7 pg (25.0-35.0); MCHC 32.5 g/dL (31.0-37.0); MCV 88.2 fL (80.0-100.0); Mean Platelet Volume 7.9; Monocytes # (A) 0.6 k/uL (0-1.0); Monocytes % (A) 6 %; Neutrophils # (A) 7.9 k/uL (1.3-7.7); Neutrophils % (A) 83 %; Platelet Count 291 k/uL (150-450); RBC 4.92 m/uL (4.30-5.90); RDW 16.2 % (11.5-15.5); WBC 9.6 k/uL (3.8-10.6)
[2021-02-12 11:22] LABS: INR 1.2 (<1.2); Partial Thromboplastin Time 26.5 sec (22.0-30.0); Prothrombin Time 12.5 sec (9.0-12.0)
[2021-02-12 11:26] LABS: Albumin 3.7 g/dL (3.5-5.0); Calcium 9.5 mg/dL (8.4-10.2); Potassium 4.7 mmol/L (3.5-5.1); Total Bilirubin 0.8 mg/dL (0.2-1.3); Total Protein 6.8 g/dL (6.3-8.2)
--- NOTE | 2021-02-12 11:29 | XR ---
EXAMINATION TYPE: XR chest 1V portable DATE OF EXAM: 02/12/2021 Comparison: Earlier today Clinical History: 70-year-old male difficulty breathing, shortness of breath FINDINGS: Median sternotomy wires are present. Heart borderline in size. Interstitial prominence. Patchy and co nfluent opacity in the right lower lung appears increased from earlier today. Impression: Right lower lung airspace disease. Correlate for pneumonia. Given borderline heart size and mild inte rstitial prominence, atypical pulmonary edema is an alternative consideration.
[2021-02-12] MEDS ORDERED: DEXTROSE 50% SYRINGE 50 ML IVP STA (11:44)
[2021-02-12] MEDS ORDERED: DILTIAZEM DRIP BOLUS FROM BAG 1 MG SOLN IV ONE (11:47)
[2021-02-12 11:48] LABS: Glucose,Whole Blood 34 mg/dL (75-99)
[2021-02-12] MEDS ORDERED: cefTRIAXone IN SWFI 1,000 MG/10 ML SYRINGE IVP STA (11:48)
[2021-02-12] MEDS ORDERED: FUROSEMIDE 10 MG/ML 4 ML VIAL IV STA (12:11)
[2021-02-12] MEDS: DILTIAZEM 125 MG in SODIUM CHLORIDE 0.9% 100 ML IV SCH (12:16)
[2021-02-12] MEDS ORDERED: NALOXONE 0.4 MG/ML 1 ML VIAL IV PRN (12:30)
[2021-02-12] MEDS ORDERED: ACETAMINOPHEN TAB 325 MG TAB PO PRN (12:30)
[2021-02-12 12:32] LABS: Glucose,Whole Blood 84 mg/dL (75-99)
--- NOTE | 2021-02-12 18:49 | P.HPIM ---
History of Present Illness H&P Date: 02/12/21 Faisal Andrade, is a 70-year-old male who presented to [facility] emergency room with a chief complaint of worsening shortness of breath over several weeks and cough and chest congestion, he was evaluated in the emergency room vital examination on presentation revealed a temperature of 96.7 also 130 respiration 26 blood pressure 142/87 pulse ox 96% on 3 L nasal cannula white blood count was 9.6 hemoglobin 14.1 platelet count 291 sodium 140 potassium 4.7 chloride 110 CO2 20 BUN 58 creatinine 2.4 troponin level was 0.044 BNP was elevated at 5717 Gu virus PCR was negative. Chest x-ray done in the emergency room revealed right lower lobe infiltrate suggestive of pneumonia, EKG revealed evidence of atrial fibrillation with rapid ventricular response. Patient was admitted to telemetry floor, he was started on IV antibiotics ceftriaxone and Zithromax, he was started on Cardizem drip, and IV Lasix, cardiology consultation and pulmonary consultation were requested. Past Medical History Past Medical History: Cancer, Chest Pain / Angina, CVA/TIA, Diabetes Mellitus, Hyperlipidemia, Hypertension, Myocardial Infarction ([place]), Sleep Apnea /CPAP/BIPAP, Thyroid Disorder Additional Past Medical History / Comment(s): [place] X2, LAST 06/2013. AORTIC STENOSIS. = SHORT OF BREATH W/ ACTIVITY. 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 HX KIDNEY FAILURE IN PAST. HX GOUT. NEUROPATHY KIM FEET. USES C-PAP. OVERACTIVE THYROID HX. EDEMA IN LEGS. HX BOWEL RESECTION D/T CA, HAS ILEOSTOMY, IRRITATION AT SITE. Last Myocardial Infarction Date:: 02/2013 History of Any Multi-Drug Resistant Organisms: None Reported Past Surgical History: Bowel Resection, Cardiac Valve Replacement, Heart Catheterization, Hernia Repair, Orthopedic Surgery Additional Past Surgical History / Comment(s): CARDIAC CATH X3. LT SHOULDER SURG. BOWEL SURG,. aortic valve replacement 02/06/15 Past Anesthesia/Blood Transfusion Reactions: No Reported Reaction Past Psychological History: Depression Smoking Status: Never smoker Past Alcohol Use History: Occasional Past Drug Use History: Marijuana - Past Family History Mother Family Medical History: Coronary Artery Disease (CAD), Hypertension Father Family Medical History: No Reported History Additional Family Medical History / Comment(s): heart valve disorders Medications and Allergies Home Medications Medication Instructions Recorded Confirmed Type Cyclobenzaprine [Flexeril] 10 mg PO HS PRN 01/09/15 02/12/21 History Insulin Glargine,Hum.rec.anlog 50 unit SQ QAM 01/09/15 02/12/21 History [Lantus Solostar] glipiZIDE [Glucotrol] 5 mg PO AC-BID tab 02/13/15 02/12/21 Rx Albuterol Sulfate [Proventil Hfa] 2 puff INHALATION RT-QID PRN 03/02/19 02/12/21 History Ergocalciferol [Vitamin D2 50,000 unit PO Q7D 03/02/19 02/12/21 History (DRISDOL)] Febuxostat [Uloric] 80 mg PO DAILY 03/02/19 02/12/21 History Fenofibrate Nanocrystallized 145 mg PO DAILY 03/02/19 02/12/21 History [Tricor] Hydrocodone/Acetaminophen [[place] 1 tab PO Q6H PRN 03/02/19 02/12/21 History 10-325] Metoprolol Succinate [Toprol XL] 50 mg PO BID 03/02/19 02/12/21 History Omeprazole 20 mg PO DAILY 03/02/19 02/12/21 History Simvastatin [Zocor] 20 mg PO DAILY 03/02/19 02/12/21 History Apixaban [Eliquis] 2.5 mg PO BID #60 tablet 03/11/19 02/12/21 Rx Furosemide [Lasix] 40 mg PO BID@0900,1600 #60 tab 03/11/19 02/12/21 Rx Latanoprost/Pf [Latanoprost 0.005% 1 drop BOTH EYES HS 02/12/21 02/12/21 History Eye Drop] amLODIPine [Norvasc] 5 mg PO DAILY 02/12/21 02/12/21 History hydrOXYzine pamoate [Vistaril] 50 mg PO BID 02/12/21 02/12/21 History Allergies Allergy/AdvReac Type Severity Reaction Status Date / Time allopurinol Allergy Rash/Hives Verified 02/12/21 13:33 Physical Exam Vitals: Vital Signs Temp Pulse Resp BP Pulse Ox 02/12/21 15:40 97.6 F 126 H 28 H 134/88 96 02/12/21 14:15 112 H 18 119/88 97 04/19/21 13:29 129 H 37 H 98 02/12/21 12:21 138 H 18 113/88 97 02/12/21 11:53 130 H 30 H 113/86 97 02/12/21 10:44 27 H 02/12/21 10:30 126 H 25 H 97 02/12/21 10:14 96.7 F L 111 H 26 H 142/87 96 Intake and Output 02/12/21 02/12/21 02/12/21 06:59 14:59 22:59 Intake Total 6.25 16.25 Balance 6.25 16.25 Intake: Intake, IV Titration 6.25 16.25 Amount Diltiazem 125 mg In 6.25 16.25 Sodium Chloride 0.9% 100 ml @ 5 MG/HR 5 mls/hr IV .Q24H [facility] Rx#:[id number] Other: Weight 106.594 kg In general patient is alert and oriented 3 in no apparent distress HEENT head normocephalic and atraumatic Neck is supple no JVD no goiter no lymphadenopathy Chest exam reveals crackles in both lung zhang no wheezing Cardiac exam reveals irregular heart sounds with tachycardia no murmurs Abdomen is soft nontender no organomegaly with normal bowel sounds Extremity exam reveals 1+ edema, there is a large scabbed ulcer on the left p retibial area with mild surrounding erythema Neurological examination reveals no gross focal deficit Results CBC & Chem 7: 02/12/21 10:43 02/12/21 10:43 Labs: Abnormal Lab Results - Last 24 Hours (Table) 02/12/21 02/12/21 02/12/21 Range/Units 10:43 10:43 10:43 RDW 16.2 H (11.5-15.5) % Neutrophils # 7.9 H (1.3-7.7) k/uL Lymphocytes # 0.9 L (1.0-4.8) k/uL PT 12.5 H (9.0-12.0) sec INR 1.2 H (<1.2) Chloride 110 H (98-107) mmol/L Carbon Dioxide 20 L (22-30) mmol/L BUN 58 H (9-20) mg/dL Creatinine 2.40 H (0.66-1.25) mg/dL Glucose 34 L* (74-99) mg/dL POC Glucose (mg/dL) (75-99) mg/dL Troponin I (0.000-0.034) ng/mL 02/12/21 02/12/21 Range/Units 10:43 11:46 RDW (11.5-15.5) % Neutrophils # (1.3-7.7) k/uL Lymphocytes # (1.0-4.8) k/uL PT (9.0-12.0) sec INR (<1.2) Chloride (98-107) mmol/L Carbon Dioxide (22-30) mmol/L BUN (9-20) mg/dL Creatinine (0.66-1.25) mg/dL Glucose (74-99) mg/dL POC Glucose (mg/dL) 34 L (75-99) mg/dL Troponin I 0.044 H* (0.000-0.034) ng/mL Assessment and Plan Plan: Acute pneumonia patient was started on IV Rocephin and IV Zithromax Atrial fibrillation with rapid ventricular response Acute congestive heart failure exacerbation with check echocardiogram cardiology consultation requested Underlying history of hypertension Underlying history of COPD Underlying history of coronary artery disease Underlying history of hyperlipidemia Underlying history of gout At this time patient is being admitted to telemetry floor he was started on IV Cardizem drip, IV Lasix, IV Rocephin and Zithromax For DVT prophylaxis patient is maintained on a liquids For GI prophylaxis we'll add Protonix Home medications reviewed and reordered Will recheck labs and follow-up in a.m.
[2021-02-12] MEDS: METOPROLOL SUCCINATE (ER) 50 MG TAB.ER.24H PO SCH (21:42)
[2021-02-12] MEDS: APIXABAN 2.5 MG TABLET PO SCH (21:43)
[2021-02-12] MEDS: FUROSEMIDE 10 MG/ML 4 ML VIAL IV SCH (21:44)
[2021-02-12] MEDS: HYDROcodone/APAP 10-325MG 1 EACH TAB PO PRN (21:46)
[2021-02-12 22:26] LABS: Glucose,Whole Blood 94 mg/dL (75-99)
[2021-02-12] MEDS: LATANOPROST 0.005% OPHTH DROPS 2.5 ML BTL BOTH EYES SCH (23:57)
[2021-02-13] MEDS: DILTIAZEM 125 MG in SODIUM CHLORIDE 0.9% 100 ML IV SCH ×3 (00:03→14:12)
[2021-02-13] MEDS ORDERED: FUROSEMIDE 10 MG/ML 4 ML VIAL IV STA (04:13)
[2021-02-13] MEDS: PANTOPRAZOLE 40 MG TABLET PO SCH (05:37)
[2021-02-13 07:17] LABS: Glucose,Whole Blood 52 mg/dL (75-99)
[2021-02-13] MEDS ORDERED: PANTOPRAZOLE 40 MG TABLET PO SCH (07:30)
[2021-02-13 07:41] LABS: Glucose,Whole Blood 85 mg/dL (75-99)
[2021-02-13] MEDS: INSULIN DETEMIR (LEVEMIR) 100 UNIT/ML SYR SQ SCH (08:25)
[2021-02-13] MEDS: FUROSEMIDE 10 MG/ML 4 ML VIAL IV SCH ×2 (08:42→20:06)
[2021-02-13] MEDS: METOPROLOL SUCCINATE (ER) 50 MG TAB.ER.24H PO SCH ×2 (08:42→20:06)
[2021-02-13] MEDS: ATORVASTATIN 10 MG TAB PO SCH (08:42)
[2021-02-13] MEDS: ERGOCALCIFEROL 1,250 MCG (50,000 IU) CAPSULE PO SCH (08:42)
[2021-02-13] MEDS: amLODIPine 5 MG TAB PO SCH (08:42)
[2021-02-13] MEDS: FEBUXOSTAT 80 MG PO SCH (08:43)
[2021-02-13] MEDS: APIXABAN 2.5 MG TABLET PO SCH ×2 (08:55→20:06)
[2021-02-13] MEDS: FENOFIBRATE 160 MG TAB PO SCH (08:55)
[2021-02-13] MEDS ORDERED: FUROSEMIDE 40 MG TAB PO SCH (09:00)
[2021-02-13 09:05] LABS: Calcium 9.6 mg/dL (8.4-10.2); Potassium 4.3 mmol/L (3.5-5.1)
[2021-02-13 10:15] LABS: Magnesium 1.5 mg/dL (1.6-2.3)
--- NOTE | 2021-02-13 12:00 | ECHOF ---
Referral Reason:chf MEASUREMENTS -------- HEIGHT: 167.6 cm WEIGHT: 106.6 kg BP: 113/88 RVIDd: 5.2 cm (< 3.3) IVSd: 1.7 cm (0.6 - 1.1) LVIDd: 3.5 cm (3.9 - 5.3) LVPWd: 2.0 cm (0.6 - 1.1) IVSs: 2.1 cm LVIDs: 2.5 cm LVPWs: 1.9 cm LAESV Index (A-L): 71.47 ml/m Ao Diam: 3.4 cm (2.0 - 3.7) MV EXCURSION: 10.694 mm (> 18.000) MV EF SLOPE: 73 mm/s (70 - 150) EPSS: 1.0 cm AV maxP.81 mmHg AV meanP.10 mmHg RAP: 5.00 mmHg RVSP: 76.74 mmHg FINDINGS -------- Atrial fibrillation. This was a technically difficult study with suboptimal views. The left ventricular size is normal. There is moderate concentric left ventricular hypertrophy. O verall left ventricular systolic function is normal with, an EF between 55 - 60 %. Septal wall taya on is delayed and consistent with prior cardiac surgery. The right ventricle is severely enlarged. LA is severely dilated >40 ml/m2 The right atrium is moderately enlarged. xx ml of Lumason was utilized for enhancement of images. Interatrial and interventricular septum intact. Peak/mean gradient across the Aortic Valve is 30.81mmHg / 19.10mmHg. There is mild stenosis of the bioprosthetic aortic valve. Mild mitral annular calcification present. Moderate mitral regurgitation is present. Mild mitral stenosis , with a MVA of 3.1cm (by PHT) Moderate to severe tricuspid regurgitation present. There is severe pulmonary hypertension. The r ight ventricular systolic pressure, as measured by Doppler, is 76.74mmHg. The pulmonic valve was not well visualized. The aortic root size is normal. IVC Not well visulized. There is no pericardial effusion. CONCLUSIONS -------- 1. There is moderate concentric left ventricular hypertrophy. 2. Overall left ventricular systolic function is normal with, an EF between 55 - 60 %. 3. The right ventricle is severely enlarged. 4. LA is severely dilated >40 ml/m2 5. The right atrium is moderately enlarged. 6. Peak/mean gradient across the Aortic Valve is 30.81mmHg / 19.10mmHg. 7. There is mild stenosis of the bioprosthetic aortic valve. 8. Mild mitral annular calcification present. 9. Moderate mitral regurgitation is present. 10. Mild mitral stenosis. 11. , with a MVA of 3.1cm (by PHT) 12. Moderate to severe tricuspid regurgitation present. 13. There is severe pulmonary hypertension. 14. The right ventricular systolic pressure, as measured by Doppler, is 76.74mmHg. SALES REPRESENTATIVE [employer]: Darlene Rod RDCS
[2021-02-13 12:05] LABS: Glucose,Whole Blood 107 mg/dL (75-99)
--- NOTE | 2021-02-13 12:16 | P.CRDCN ---
History of Present Illness History of present illness: HISTORY OF PRESENTING ILLNESS This is a pleasant 70-year-old male past medical history significant for valvular heart disease status post tissue aortic valve replacement in 2015, minimal nonobstructive triple vessel disease, hypertension, diabetes mellitus, dyslipidemia, chronic kidney disease and history of pulmonary embolism maintained on Eliquis. He follows in the office with Dr. Bolaños. We have been asked to see in consultation for new onset atrial fibrillation. He presented to the emergency department with symptoms of shortness of breath that has been going on and getting worse for the previous couple of months. He has had increased lower extremity edema and dizziness. He denies symptoms of chest pain or palpitations. He department EKG was obtained revealing atrial fibrillation with rapid ventricular rate. He is a 30 antiplatelet coagulated on Eliquis due to history of PE and was initiated on Cardizem infusion. Chest x-ray obtained revealed right lower lung air space disease possibly atypical pulmonary edema versus pneumonia. He has been started on IV antibiotics. He is also on IV diuretics. Blood sugar was low on arrival at 34. Telemetry tracings reveal ongoing atrial fibrillation with variable ventricular rates. Laboratory data reviewed, WBC 9.6, hemoglobin 14.1, platelets 291, sodium 138, potassium 4.3, creatinine 2.39, troponins 0.049 and 0.044, and T proBNP 5770. Current daily cardiac medications include Eliquis 2.5 mg twice a day, Lasix 40 mg twice a day, Toprol 50 mg twice a day, simvastatin 20 mg daily and amlodipine 5 mg daily. Most recent echocardiogram obtained in the office April 2020 revealed preserved LV systolic function with ejection fraction 55%, mild to moderate mitral regurgitation, normally functioning prosthetic aortic valve with a mean gradient across the valve of 21 mmHg, mild to moderate tricuspid regurgitation and mild aortic regurgitation noted. Most recent stress test performed in the office in 2018 with a Lexiscan stress test that was negative for stress-induced ischemia. REVIEW OF SYSTEMS At the time of my exam: CONSTITUTIONAL: Denies fever or chills. CARDIOVASCULAR: Denies chest pain, shortness of breath, orthopnea, PND or palpitations. RESPIRATORY: Denies cough. GASTROINTESTINAL: Denies abdominal pain, diarrhea, constipation, nausea or vomiting. MUSCULOSKELETAL: Denies myalgias. NEUROLOGIC: Denies numbness, tingling, headacbe or weakness. ENDOCRINE: Denies fatigue, weight change, polydipsia or polyurina. GENITOURINARY: Denies burning, hematuria or urgency with micturation. HEMATOLOGIC: Denies history of anemia or bleeding. PHYSICAL EXAMINATION Blood pressure 132/89 heart rate 121 afebrile and maintaining oxygen saturation on nasal cannula. CONSTITUTIONAL: No apparent distress. HEENT: Head is normocephalic. Pupils are equal, round. Sclerae anicteric. Mucous membranes of the mouth are moist. No JVD. No carotid bruit. CHEST EXAMINATION: Bibasilar coarse rales, scattered rhonchi, no wheezes. No chest wall tenderness is noted on palpation or with deep breathing. HEART EXAMINATION: Irregular rate and rhythm. S1, S2 heard. Systolic ejection murmur at the base, no gallops or rub. ABDOMEN: Soft, nontender. Positive bowel sounds. EXTREMITIES: 2+ peripheral pulses, 2+ bilateral lower extremity pitting edema and no calf tenderness. NEUROLOGIC EXAMINATION: Patient is awake, alert and oriented x3. ASSESSMENT New onset paroxysmal atrial fibrillation with rapid ventricular rate Acute on chronic diastolic heart failure Hypoxia Troponin leak, likely related to renal function. There is flat appearance with no significant rise and fall pattern suggestive of myocardial injury. Valvular heart disease status post tissue aortic valve replacement 2014 Chronic kidney disease Hypertension Diabetes mellitus with hypoglycemia on admission Dyslipidemia PLAN Echocardiogram has been obtained and will be reviewed. Continue Cardizem infusion and Eliquis for thromboembolic protection. Ongoing diuresis. Document accurate intake and output along with daily weights. Check magnesium and TSH this morning. Follow renal function and electrolytes in the morning. Further recommendations to follow based upon clinical course. Thank you kindly for this consultation. Nurse Practitioner note has been reviewed, I agree with a documented findings and plan of care. Patient was seen and examined. Past Medical History Past Medical History: Cancer, Chest Pain / Angina, CVA/TIA, Diabetes Mellitus, Hyperlipidemia, Hypertension, Myocardial Infarction ([place]), Sleep Apnea/CPAP/BIPAP, Thyroid Disorder Additional Past Medical History / Comment(s): [place] X2, LAST 06/2013. AORTIC STENOSIS. = SHORT OF BREATH W/ ACTIVITY. 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 HX KIDNEY FAILURE IN PAST. HX GOUT. NEUROPATHY KIM FEET. USES C-PAP. OVERACTIVE THYROID HX. EDEMA IN LEGS. HX BOWEL RESECTION D/T CA, HAS ILEOSTOMY, IRRITATION AT SITE. Last Myocardial Infarction Date:: 02/2013 History of Any Multi-Drug Resistant Organisms: None Reported Past Surgical History: Bowel Resection, Cardiac Valve Replacement, Heart Catheterization, Hernia Repair, Orthopedic Surgery Additional Past Surgical History / Comment(s): CARDIAC CATH X3. LT SHOULDER SURG. BOWEL SURG,. aortic valve replacement 02/06/15 Past Anesthesia/Blood Transfusion Reactions: No Reported Reaction Past Psychological History: Depression Smoking Status: Never smoker Past Alcohol Use History: Occasional Past Drug Use History: Marijuana - Past Family History Mother Family Medical History: Coronary Artery Disease (CAD), Hypertension Father Family Medical History: No Reported History Additional Family Medical History / Comment(s): heart valve disorders Medications and Allergies Home Medications Medication Instructions Recorded Confirmed Type Cyclobenzaprine [Flexeril] 10 mg PO HS PRN 01/09/15 02/12/21 History Insulin Glargine,Hum.rec.anlog 50 unit SQ QAM 01/09/15 02/12/21 History [Lantus Solostar] glipiZIDE [Glucotrol] 5 mg PO AC-BID tab 02/13/15 02/12/21 Rx Albuterol Sulfate [Proventil Hfa] 2 puff INHALATION RT-QID PRN 03/02/19 02/12/21 History Ergocalciferol [Vitamin D2 50,000 unit PO Q7D 03/02/19 02/12/21 History (DRISDOL)] Febuxostat [[place]] 80 mg PO DAILY 03/02/19 02/12/21 History Fenofibrate Nanocrystallized 145 mg PO DAILY 03/02/19 02/12/21 History [Tricor] Hydrocodone/Acetaminophen [[place] 1 tab PO Q6H PRN 03/02/19 02/12/21 History 10-325] Metoprolol Succinate [Toprol XL] 50 mg PO BID 03/02/19 02/12/21 History Omeprazole 20 mg PO DAILY 03/02/19 02/12/21 History Simvastatin [Zocor] 20 mg PO DAILY 03/02/19 02/12/21 History Apixaban [Eliquis] 2.5 mg PO BID #60 tablet 03/11/19 02/12/21 Rx Furosemide [Lasix] 40 mg PO BID@0900,1600 #60 tab 03/11/19 02/12/21 Rx Latanoprost/Pf [Latanoprost 0.005% 1 drop BOTH EYES HS 02/12/21 02/12/21 History Eye Drop] amLODIPine [Norvasc] 5 mg PO DAILY 02/12/21 02/12/21 History hydrOXYzine pamoate [Vistaril] 50 mg PO BID 02/12/21 02/12/21 History Allergies Allergy/AdvReac Type Severity Reaction Status Date / Time allopurinol Allergy Rash/Hives Verified 02/12/21 13:33 Physical Exam Vitals: Vital Signs Temp Pulse Pulse Resp BP BP Pulse Ox 02/13/21 07:56 97.5 F L 121 H 20 132/89 91 L 02/13/21 04:05 22 92 L 02/13/21 04:00 97.6 F 104 H 24 120/89 88 L 02/13/21 02:00 96 22 02/13/21 00:00 97.6 F 96 22 127/91 92 L 02/12/21 23:19 98 18 126/79 95 02/12/21 21:00 112 H 18 126/79 95 02/12/21 19:58 115 H 02/12/21 18:41 130 H 26 H 137/92 95 02/12/21 17:50 97.6 F 115 H 28 H 138/100 97 02/12/21 17:12 97.5 F L 124 H 36 H 145/112 93 L 02/12/21 15:40 97.6 F 126 H 28 H 134/88 96 02/12/21 14:15 112 H 18 119/88 97 02/12/21 13:29 129 H 37 H 98 02/12/21 12:21 138 H 18 113/88 97 02/12/21 11:53 130 H 30 H 113/86 97 02/12/21 10:44 27 H 02/12/21 10:30 126 H 25 H 97 02/12/21 10:14 96.7 F L 111 H 26 H 142/87 96 Intake and Output 02/12/21 02/13/21 02/13/21 22:59 06:59 14:59 Intake Total 55.583 393.417 Output Total 300 Balance 55.583 93.417 Intake: Intake, IV Titration 55.583 153.417 Amount Diltiazem 125 mg In 55.583 153.417 Sodium Chloride 0.9% 100 ml @ 5 MG/HR 5 mls/hr IV .Q24H [facility] Rx#:[id number] Oral 240 Output: Urine 300 Other: # Voids 1 # Bowel Movements 2 Results 02/12/21 10:43 02/13/21 08:18 Cardiac Enzymes 02/12/21 02/12/21 02/12/21 Range/Units 10:43 10:43 18:12 AST 29 (17-59) U/L Troponin I 0.044 H* 0.049 H* (0.000-0.034) ng/mL Coagulation 02/12/21 Range/Units 10:43 PT 12.5 H (9.0-12.0) sec APTT 26.5 (22.0-30.0) sec CBC 02/12/21 Range/Units 10:43 WBC 9.6 (3.8-10.6) k/uL RBC 4.92 (4.30-5.90) m/uL Hgb 14.1 (13.0-17.5) gm/dL Hct 43.4 (39.0-53.0) % Plt Count 291 (150-450) k/uL Comprehensive Metabolic Panel 02/12/21 02/13/21 Range/Units 10:43 08:18 Sodium 140 138 (137-145) mmol/L Potassium 4.7 4.3 (3.5-5.1) mmol/L Chloride 110 H 105 (98-107) mmol/L Carbon Dioxide 20 L 21 L (22-30) mmol/L BUN 58 H 58 H (9-20) mg/dL Creatinine 2.40 H 2.39 H (0.66-1.25) mg/dL Glucose 34 L* 102 H (74-99) mg/dL Calcium 9.5 9.6 (8.4-10.2) mg/dL AST 29 (17-59) U/L ALT 16 (4-49) U/L Alkaline Phosphatase 52 (38-126) U/L Total Protein 6.8 (6.3-8.2) g/dL Albumin 3.7 (3.5-5.0) g/dL Current Medications Generic Name Dose Route Start Last Admin Trade Name Freq PRN Reason Stop Dose Admin Acetaminophen 650 mg 02/12/21 12:30 Acetaminophen Tab 325 Mg Tab PO Q6HR PRN Mild Pain or Fever > 100.5 Hydrocodone Bitart/Acetaminophen 1 each 02/12/21 18:42 02/12/21 21:46 Hydrocodone/Apap 10-325mg 1 Each Tab PO 1 each Q6H PRN Administration Pain Albuterol Sulfate 2.5 mg 02/12/21 18:42 Albuterol Nebulized 2.5 Mg/3 Ml INHALATION RT-QID PRN Shortness Of Breath Amlodipine Besylate 5 mg 02/13/21 09:00 02/13/21 08:42 Amlodipine 5 Mg Tab PO 5 mg DAILY JOSE Administration Apixaban 2.5 mg 02/12/21 21:00 02/13/21 08:55 Apixaban 2.5 Mg Tablet PO 2.5 mg BID JOSE Administration Atorvastatin Calcium 10 mg 02/13/21 09:00 02/13/21 08:42 Atorvastatin 10 Mg Tab PO 10 mg DAILY JOSE Administration Cyclobenzaprine HCl 10 mg 02/12/21 18:42 Cyclobenzaprine 10 Mg Tab PO HS PRN Muscle Pain Ergocalciferol 1,250 mcg 02/13/21 09:00 02/13/21 08:42 Ergocalciferol 1,250 Mcg (50,000 Iu) Capsule PO 1,250 mcg Q7D JOSE Administration Fenofibrate 160 mg 02/13/21 09:00 02/13/21 08:55 Fenofibrate 160 Mg Tab PO 160 mg DAILY JOSE Administration Furosemide 40 mg 02/12/21 21:00 02/13/21 08:42 Furosemide 10 Mg/Ml 4 Ml Vial IV 40 mg Q12HR JOSE Administration Diltiazem HCl 125 mg/ Sodium 125 mls @ 5 mls/hr 02/12/21 12:00 02/13/21 06:04 Chloride IV 15 mg/hr .Q24H JOSE 15 mls/hr Administration 5 MG/HR Ceftriaxone Sodium 1 gm/ 50 mls @ 100 mls/hr 02/13/21 09:00 02/13/21 08:55 Sodium Chloride IVPB 100 mls/hr Q24HR JOSE Administration Azithromycin 500 mg/ Sodium 250 mls @ 250 mls/hr 02/13/21 21:00 Chloride IVPB Q24HR@2100 JOSE Insulin Detemir 50 unit 02/13/21 09:00 02/13/21 08:25 Insulin Detemir (Levemir) 100 Unit/Ml Syr SQ Not Given QAM JOSE Latanoprost 1 drops 02/12/21 21:00 02/12/21 23:57 Latanoprost 0.005% Ophth Drops 2.5 Ml Btl BOTH EYES Not Given HS JOSE Metoprolol Succinate 50 mg 02/12/21 21:00 02/13/21 08:42 Metoprolol Succinate (Er) 50 Mg Tab.Er.24h PO 50 mg BID JOSE Administration Naloxone HCl 0.2 mg 02/12/21 12:30 Naloxone 0.4 Mg/Ml 1 Ml Vial IV Q2M PRN Opioid Reversal Febuxostat [Uloric] 80 mg 02/13/21 09:00 02/13/21 08:43 80 Mg Tablet) PO Not Given DAILY [facility] Pantoprazole Sodium 40 mg 02/13/21 07:30 02/13/21 05:37 Pantoprazole 40 Mg Tablet PO 40 mg [id number] JOSE Administration Intake and Output 02/12/21 02/13/21 02/13/21 22:59 06:59 14:59 Intake Total 55.583 393.417 Output Total 300 Balance 55.583 93.417 Intake: Intake, IV Titration 55.583 153.417 Amount Diltiazem 125 mg In 55.583 153.417 Sodium Chloride 0.9% 100 ml @ 5 MG/HR 5 mls/hr IV .Q24H [facility] Rx#:[id number] Oral 240 Output: Urine 300 Other: # Voids 1 # Bowel Movements 2 02/12/21 10:43 02/13/21 08:18
--- NOTE | 2021-02-13 12:28 | P.CNPUL ---
History of Present Illness Consult date: 02/13/21 Requesting physician: Navdeep Rayo Reason for consult: dyspnea, cough, hypoxemia, pneumonia, abnormal CXR/CT Chief complaint: Shortness of breath, hypoxemia, atrial fibrillation. History of present illness: Pulmonary consult dated 02/13/2021. 70-year-old male, seen by Dr. Medina and our office on February 12. The patient was very short of breath at that time, and quite hypoxemic, and he was sent to the emergency department for further evaluation. Currently, he is on nasal cannula at 6 L/m, saline at 20 mL an hour, and a Cardizem drip at 15 mg an hour. The patient apparently complained in the ER, that he is having difficulty breathing for several months prior to admission. Over the last few days, she got worse. He denied any chest pain or fever. He did have some lower extremity edema. He has a history of angina, CVA, diabetes, hyperlipidemia, hypertension, myocardial infarction, sleep apnea syndrome, hypothyroidism, aortic stenosis, status post aortic valve replacement, and bowel resection for colon cancer. White count 9.6, he will 14.1, hematocrit 43.4, and platelet count 291,000. PT 12.5 INR 1.2. Sodium 138, potassium 4.3, chlorides 105, CO2 21, anion gap 12, BUN 58, creatinine 2.39. Troponin was 0.049, and N-terminal proBNP was 5770. Chest x-ray was consistent with right lower lobe infiltrate/pneumonia. Review of Systems REVIEW OF SYSTEMS: CONSTITUTIONAL: [Negative.] NEUROLOGIC: [ Negative.] HEENT: [ Negative.] CARDIAC: [Negative.] PULMONARY: Progressive shortness of breath, worse over the last 2 or 3 days. GI: [Negative.] : [Negative.] RHEUMATOLOGIC: [ Negative.] IMMUNOLOGIC: [ Negative.] ENDOCRINE: [Negative. ] DERMATOLOGIC: [Negative.] Past Medical History Past Medical History: Cancer, Chest Pain / Angina, CVA/TIA, Diabetes Mellitus, Hyperlipidemia, Hypertension, Myocardial Infarction ([place]), Sleep Apnea/CPAP/BIPAP, Thyroid Disorder Additional Past Medical History / Comment(s): [place] X2, LAST 06/2013. AORTIC STENOSIS. = SHORT OF BREATH W/ ACTIVITY. 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 HX KIDNEY FAILURE IN PAST. HX GOUT. NEUROPATHY KIM FEET. USES C-PAP. OVERACTIVE THYROID HX. EDEMA IN LEGS. HX BOWEL RESECTION D/T CA, HAS ILEOSTOMY, IRRITATION AT SITE. Last Myocardial Infarction Date:: 02/2013 History of Any Multi-Drug Resistant Organisms: None Reported Past Surgical History: Bowel Resection, Cardiac Valve Replacement, Heart Catheterization, Hernia Repair, Orthopedic Surgery Additional Past Surgical History / Comment(s): CARDIAC CATH X3. LT SHOULDER SURG. BOWEL SURG,. aortic valve replacement 02/06/15 Past Anesthesia/Blood Transfusion Reactions: No Reported Reaction Past Psychological History: Depression Smoking Status: Never smoker Past Alcohol Use History: Occasional Past Drug Use History: Marijuana - Past Family History Mother Family Medical History: Coronary Artery Disease (CAD), Hypertension Father Family Medical History: No Reported History Additional Family Medical History / Comment(s): heart valve disorders Medications and Allergies Home Medications Medication Instructions Recorded Confirmed Type Cyclobenzaprine [Flexeril] 10 mg PO HS PRN 01/09/15 02/12/21 History Insulin Glargine,Hum.rec.anlog 50 unit SQ QAM 01/09/15 02/12/21 History [Lantus Solostar] glipiZIDE [Glucotrol] 5 mg PO AC-BID tab 02/13/15 02/12/21 Rx Albuterol Sulfate [Proventil Hfa] 2 puff INHALATION RT-QID PRN 03/02/19 02/12/21 History Ergocalciferol [Vitamin D2 50,000 unit PO Q7D 03/02/19 02/12/21 History (DRISDOL)] Febuxostat [Uloric] 80 mg PO DAILY 03/02/19 02/12/21 History Fenofibrate Nanocrystallized 145 mg PO DAILY 03/02/19 02/12/21 History [Tricor] Hydrocodone/Acetaminophen [[place] 1 tab PO Q6H PRN 03/02/19 02/12/21 History 10-325] Metoprolol Succinate [Toprol XL] 50 mg PO BID 03/02/19 02/12/21 History Omeprazole 20 mg PO DAILY 03/02/19 02/12/21 History Simvastatin [Zocor] 20 mg PO DAILY 03/02/19 02/12/21 History Apixaban [Eliquis] 2.5 mg PO BID #60 tablet 03/11/19 02/12/21 Rx Furosemide [Lasix] 40 mg PO BID@0900,1600 #60 tab 03/11/19 02/12/21 Rx Latanoprost/Pf [Latanoprost 0.005% 1 drop BOTH EYES HS 02/12/21 02/12/21 History Eye Drop] amLODIPine [Norvasc] 5 mg PO DAILY 02/12/21 02/12/21 History hydrOXYzine pamoate [Vistaril] 50 mg PO BID 02/12/21 02/12/21 History Allergies Allergy/AdvReac Type Severity Reaction Status Date / Time allopurinol Allergy Rash/Hives Verified 02/12/21 13:33 Physical Exam Osteopathic Statement: *. No significant issues noted on an osteopathic structural exam other than those noted in the History and Physical/Consult. Vitals: Vital Signs Temp Pulse Pulse Resp BP BP Pulse Ox 02/13/21 09:56 107 H 20 02/13/21 07:56 97.5 F L 121 H 20 132/89 91 L 02/13/21 04:05 22 92 L 02/13/21 04:00 97.6 F 104 H 24 120/89 88 L 02/13/21 02:00 96 22 02/13/21 00:00 97.6 F 96 22 127/91 92 L 02/12/21 23:19 98 18 126/79 95 02/12/21 21:00 112 H 18 126/79 95 02/12/21 19:58 115 H 02/12/21 18:41 130 H 26 H 137/92 95 02/12/21 17:50 97.6 F 115 H 28 H 138/100 97 02/12/21 17:12 97.5 F L 124 H 36 H 145/112 93 L 02/12/21 15:40 97.6 F 126 H 28 H 134/88 96 02/12/21 14:15 112 H 18 119/88 97 02/12/21 13:29 129 H 37 H 98 02/12/21 12:21 138 H 18 113/88 97 Intake and Output 02/12/21 02/13/21 02/13/21 22:59 06:59 14:59 Intake Total 55.583 393.417 Output Total 300 200 Balance 55.583 93.417 -200 Intake: Intake, IV Titration 55.583 153.417 Amount Diltiazem 125 mg In 55.583 153.417 Sodium Chloride 0.9% 100 ml @ 5 MG/HR 5 mls/hr IV .Q24H [facility] Rx#:[id number] Oral 240 Output: Urine 300 200 Other: # Voids 1 # Bowel Movements 2 1 Weight 106.594 kg No acute distress, oriented 3. Currently, the patient's on 6 L. Saturations anywhere from 88-91%. HEENT examination is grossly unremarkable. Neck supple. Full range of motion. No adenopathy thyromegaly or neck vein distention. Cardiovascular examination reveals an irregular rhythm and rate. S1-S2 normal. No S3 or S4. No discernible murmur noted. Heart rate 107 bpm. Lungs reveal scattered bilateral rhonchi. Some crackles at the right base. No wheezes. Breath sounds are diminished throughout. Abdomen soft bowel sounds are heard. No masses or tenderness. Extremities are intact. No cyanosis clubbing or edema. Skin is without rash or lesion. Neurologic examination is brief but nonfocal. Results - Laboratory Findings CBC and BMP: 02/12/21 10:43 02/13/21 08:18 PT/INR, D-dimer PT 12.5 sec (9.0-12.0) H 02/12/21 10:43 INR 1.2 (<1.2) H 02/12/21 10:43 Abnormal lab findings: Abnormal Labs 02/12/21 02/12/21 02/12/21 10:43 10:43 10:43 RDW 16.2 H Neutrophils # 7.9 H Lymphocytes # 0.9 L PT 12.5 H INR 1.2 H Chloride 110 H Carbon Dioxide 20 L BUN 58 H Creatinine 2.40 H Glucose 34 L* POC Glucose (mg/dL) Magnesium Troponin I TSH Free T4 02/12/21 02/12/21 02/12/21 10:43 11:46 18:12 RDW Neutrophils # Lymphocytes # PT INR Chloride Carbon Dioxide BUN Creatinine Glucose POC Glucose (mg/dL) 34 L Magnesium Troponin I 0.044 H* 0.049 H* TSH Free T4 02/13/21 02/13/21 02/13/21 07:16 08:18 08:18 RDW Neutrophils # Lymphocytes # PT INR Chloride Carbon Dioxide 21 L BUN 58 H Creatinine 2.39 H Glucose 102 H POC Glucose (mg/dL) 52 L Magnesium 1.5 L Troponin I TSH <0.015 L Free T4 2.90 H 02/13/21 12:04 RDW Neutrophils # Lymphocytes # PT INR Chloride Carbon Dioxide BUN Creatinine Glucose POC Glucose (mg/dL) 107 H Magnesium Troponin I TSH Free T4 - Diagnostic Findings Chest x-ray: image reviewed Assessment and Plan Assessment: Acute hypoxemic respiratory failure, secondary to right lower lobe pneumonia. Atrial fibrillation with RVR. Status post bovine aortic valve replacement for aortic stenosis (2014). History of CVA. History of diabetes mellitus. History of hyperlipidemia. History of hypertension. Prior history of myocardial infarction. Obstructive sleep apnea syndrome, currently on CPAP. History of gout. Status post bowel resection for cancer, status post ileostomy. Plan: Plan dated 02/13/2021. Currently, the patient is feeling better today than he did yesterday and our office. The patient is on Cardizem 50 mg an hour for his atrial fibrillation with rapid ventricular response. The patient was ready on Eliquis. For his right lower lobe pneumonia, the patient is on Rocephin, and azithromycin. No additional recommendations are made. We will continue to follow make rec ommendations were appropriate. The patient tested negative for coronavirus. Prognosis is guarded. Time with Patient: Greater than 30
--- NOTE | 2021-02-13 17:52 | P.PN ---
Subjective Progress Note Date: 02/13/21 Faisal Andrade, is a 70-year-old male who presented to [facility] emergency room with a chief complaint of worsening shortness of breath over several weeks and cough and chest congestion, he was evaluated in the emergency room vital examination on presentation revealed a temperature of 96.7 also 130 respiration 26 blood pressure 142/87 pulse ox 96% on 3 L nasal cannula white blood count was 9.6 hemoglobin 14.1 platelet count 291 sodium 140 potassium 4.7 chloride 110 CO2 20 BUN 58 creatinine 2.4 troponin level was 0.044 BNP was elevated at 5717 Gu virus PCR was negative. Chest x-ray done in the emergency room revealed right lower lobe infiltrate suggestive of pneumonia, EKG revealed evidence of atrial fibrillation with rapid ventricular response. Patient was admitted to telemetry floor, he was started on IV antibiotics ceftriaxone and Zithromax, he was started on Cardizem drip, and IV Lasix, cardiology consultation and pulmonary consultation were requested. On 02/13/2021 patient was seen and examined on the medical floor, he is alert and oriented 3 in no apparent distress he is still complaining of shortness of breath however he noticed some improvement since yesterday he also had some occasional cough otherwise he denies any complaints there is no fever or chills no headache or dizziness no chest pain no nausea or vomiting no abdominal pain no diarrhea no blood in the stools no burning with urination no frequency or urgency and no hematuria he is maintained on IV Lasix his creatinine is going up chronic kidney disease will add a consult for nephrology at this time Objective - Vital Signs Vital signs: Vital Signs Temp 97.6 F 02/13/21 16:43 Pulse 82 02/13/21 16:43 Resp 24 02/13/21 16:43 BP 135/87 02/13/21 16:43 Pulse Ox 95 02/13/21 16:43 Intake & Output 02/12/21 02/13/21 02/13/21 18:59 06:59 18:59 Intake Total 22.50 432.750 122 Output Total 300 500 Balance 22.50 132.750 -378 Weight 106.594 kg 106.594 kg Intake: Intake, IV Titration 22.50 192.750 122 Amount Diltiazem 125 mg In 22.50 192.750 122 Sodium Chloride 0.9% 100 ml @ 5 MG/HR 5 mls/hr IV .Q24H REPLACED BY [facility] Rx#:[id number] Oral 240 Output: Urine 300 500 Other: # Voids 1 # Bowel Movements 2 1 - Exam In general patient is alert and oriented 3 in no apparent distress HEENT head normocephalic and atraumatic Neck is supple no JVD no goiter no lymphadenopathy Chest exam reveals crackles in both lung zhang no wheezing Cardiac exam reveals irregular heart sounds with tachycardia no murmurs Abdomen is soft nontender no organomegaly with normal bowel sounds Extremity exam reveals 1+ edema, there is a large scabbed ulcer on the left pretibial area with mild surrounding erythema Neurological examination reveals no gross focal deficit - Labs CBC & Chem 7: 02/12/21 10:43 02/13/21 08:18 Labs: Abnormal Lab Results - Last 24 Hours (Table) 02/12/21 02/13/21 02/13/21 Range/Units 18:12 07:16 08:18 Carbon Dioxide 21 L (22-30) mmol/L BUN 58 H (9-20) mg/dL Creatinine 2.39 H (0.66-1.25) mg/dL Glucose 102 H (74-99) mg/dL POC Glucose (mg/dL) 52 L (75-99) mg/dL Magnesium (1.6-2.3) mg/dL Troponin I 0.049 H* (0.000-0.034) ng/mL TSH (0.465-4.680) mIU/L Free T4 (0.78-2.19) ng/dL 02/13/21 02/13/21 Range/Units 08:18 12:04 Carbon Dioxide (22-30) mmol/L BUN (9-20) mg/dL Creatinine (0.66-1.25) mg/dL Glucose (74-99) mg/dL POC Glucose (mg/dL) 107 H (75-99) mg/dL Magnesium 1.5 L (1.6-2.3) mg/dL Troponin I (0.000-0.034) ng/mL TSH <0.015 L (0.465-4.680) mIU/L Free T4 2.90 H (0.78-2.19) ng/dL Microbiology - Last 24 Hours (Table) 02/12/21 10:50 Blood Culture - Preliminary Blood No Growth after 24 hours 02/12/21 10:34 Blood Culture - Preliminary Blood No Growth after 24 hours Assessment and Plan Plan: Acute pneumonia patient was started on IV Rocephin and IV Zithromax Atrial fibrillation with rapid ventricular response Acute congestive heart failure exacerbation with check echocardiogram cardiology consultation requested Underlying history of hypertension Underlying history of COPD Underlying history of coronary artery disease Underlying history of hyperlipidemia Underlying history of gout At this time patient is being admitted to telemetry floor he was started on IV Cardizem drip, IV Lasix, IV Rocephin and Zithromax For DVT prophylaxis patient is maintained on a liquids For GI prophylaxis we'll add Protonix Home medications reviewed and reordered Will recheck labs and follow-up in a.m.
[2021-02-13 20:13] LABS: Glucose,Whole Blood 408 mg/dL (75-99)
[2021-02-13 20:14] LABS: Glucose,Whole Blood 411 mg/dL (75-99)
[2021-02-13] MEDS: INSULIN ASPART (NovoLOG) 100 UNIT/ML VIAL SQ SCH (20:32)
[2021-02-13] MEDS: LATANOPROST 0.005% OPHTH DROPS 2.5 ML BTL BOTH EYES SCH (20:33)
[2021-02-13] MEDS ORDERED: AZITHROMYCIN 500 MG in SODIUM CHLORIDE 0.9% 250 ML IVPB SCH (21:00)
[2021-02-13] MEDS: HYDROcodone/APAP 10-325MG 1 EACH TAB PO PRN (21:59)
[2021-02-14 06:15] LABS: Glucose,Whole Blood 42 mg/dL (75-99)
[2021-02-14 06:31] LABS: Glucose,Whole Blood 49 mg/dL (75-99)
[2021-02-14 06:44] LABS: Glucose,Whole Blood 65 mg/dL (75-99)
[2021-02-14] MEDS: INSULIN ASPART (NovoLOG) 100 UNIT/ML VIAL SQ SCH ×4 (06:46→21:17)
[2021-02-14 06:50] LABS: Glucose,Whole Blood 86 mg/dL (75-99)
[2021-02-14] MEDS: PANTOPRAZOLE 40 MG TABLET PO SCH (06:59)
[2021-02-14] MEDS: APIXABAN 2.5 MG TABLET PO SCH (08:23)
[2021-02-14] MEDS: ATORVASTATIN 10 MG TAB PO SCH (08:23)
[2021-02-14] MEDS: amLODIPine 5 MG TAB PO SCH (08:23)
[2021-02-14] MEDS: METOPROLOL SUCCINATE (ER) 50 MG TAB.ER.24H PO SCH ×2 (08:23→21:23)
[2021-02-14] MEDS: FUROSEMIDE 10 MG/ML 4 ML VIAL IV SCH (08:23)
[2021-02-14] MEDS: FENOFIBRATE 160 MG TAB PO SCH (08:23)
[2021-02-14 08:31] LABS: Glucose,Whole Blood 176 mg/dL (75-99)
[2021-02-14] MEDS: INSULIN DETEMIR (LEVEMIR) 100 UNIT/ML SYR SQ SCH (08:31)
[2021-02-14] MEDS: FEBUXOSTAT 80 MG PO SCH (08:42)
[2021-02-14 10:05] LABS: Anisocytosis Slight; Basophils % (A) 0 %; Eosinophils # (A) 0.1 k/uL (0-0.7); Eosinophils % (A) 1 %; HCT 42.2 % (39.0-53.0); HGB 13.7 gm/dL (13.0-17.5); Hypochromasia Slight; Lymphocytes # (A) 1.3 k/uL (1.0-4.8); Lymphocytes % (A) 13 %; MCHC 32.4 g/dL (31.0-37.0); MCV 89.6 fL (80.0-100.0); Mean Platelet Volume 7.8; Monocytes # (A) 0.7 k/uL (0-1.0); Monocytes % (A) 7 %; Neutrophils # (A) 7.9 k/uL (1.3-7.7); Neutrophils % (A) 78 %; Platelet Count 261 k/uL (150-450); RBC 4.71 m/uL (4.30-5.90); RDW 16.1 % (11.5-15.5); WBC 10.1 k/uL (3.8-10.6)
[2021-02-14 10:17] LABS: Albumin 3.4 g/dL (3.5-5.0); Potassium 4.7 mmol/L (3.5-5.1); Total Bilirubin 0.8 mg/dL (0.2-1.3); Total Protein 6.3 g/dL (6.3-8.2)
--- NOTE | 2021-02-14 11:02 | P.PN ---
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 He follows in the office with Dr. Bolaños. We have been asked to see in consultation for new onset atrial fibrillation. He presented to the emergency department with symptoms of shortness of breath that has been going on and getting worse for the previous couple of months. He has had increased lower extremity edema and dizziness. He denies symptoms of chest pain or palpitations. He department EKG was obtained revealing atrial fibrillation with rapid ventricular rate. He is a 30 antiplatelet coagulated on Eliquis due to history of PE and was initiated on Cardizem infusion. Chest x-ray obtained revealed right lower lung air space disease possibly atypical pulmonary edema ve rsus pneumonia. He has been started on IV antibiotics. He is also on IV diuretics. Blood sugar was low on arrival at 34. Telemetry tracings reveal ongoing atrial fibrillation with variable ventricular rates. Laboratory data reviewed, WBC 9.6, hemoglobin 14.1, platelets 291, sodium 138, potassium 4.3, creatinine 2.39, troponins 0.049 and 0.044, and T proBNP 5770. Current daily cardiac medications include Eliquis 2.5 mg twice a day, Lasix 40 mg twice a day, Toprol 50 mg twice a day, simvastatin 20 mg daily and amlodipine 5 mg daily. Most recent echocardiogram obtained in the office April 2020 revealed preserved LV systolic function with ejection fraction 55%, mild to moderate mitral regu rgitation, normally functioning prosthetic aortic valve with a mean gradient across the valve of 21 mmHg, mild to moderate tricuspid regurgitation and mild aortic regurgitation noted. Most recent stress test performed in the office in 2018 with a Lexiscan stress test that was negative for stress-induced ischemia. 02/14 Patient seen and examined. Patient admits his SOB is much improved from when he came in. He has been receivied IV Lasix 40mg IV bid. His Cr increased from 2.4 up to 3.18 today. Currently resting with his BIPAP on, lying flat in bed. Admits to chronic LE edema, usually worse at the end of the day similar to what he has now for years. REVIEW OF SYSTEMS At the time of my exam: CONSTITUTIONAL: Denies fever or chills. CARDIOVASCULAR: Denies chest pain, shortness of breath, orthopnea, PND or palpitations. RESPIRATORY: Denies cough. GASTROINTESTINAL: Denies abdominal pain, diarrhea, constipation, nausea or vomiting. MUSCULOSKELETAL: Denies myalgias. NEUROLOGIC: Denies numbness, tingling, headacbe or weakness. ENDOCRINE: Denies fatigue, weight change, polydipsia or polyurina. GENITOURINARY: Denies burning, hematuria or urgency with micturation. HEMATOLOGIC: Denies history of anemia or bleeding. PHYSICAL EXAMINATION Vitals reviewed CONSTITUTIONAL: No apparent distress. HEENT: Head is normocephalic. Pupils are equal, round. Sclerae anicteric. Mucous membranes of the mouth are moist. No JVD. No carotid bruit. CHEST EXAMINATION: Bibasilar coarse rales, scattered rhonchi, no wheezes. No chest wall tenderness is noted on palpation or with deep breathing. HEART EXAMINATION: Irregular rate and rhythm. S1, S2 heard. Systolic ejection murmur at the base, no gallops or rub. ABDOMEN: Soft, nontender. Positive bowel sounds. EXTREMITIES: 2+ peripheral pulses, 2+ bilateral lower extremity pitting edema and no calf tenderness. NEUROLOGIC EXAMINATION: Patient is awake, alert and oriented x3. ASSESSMENT New onset paroxysmal atrial fibrillation with rapid ventricular rate Acute on chronic diastolic heart failure, appears near euvolemic Hypoxia Troponin leak, likely related to renal function. There is flat appearance with no significant rise and fall pattern suggestive of myocardial injury. Valvular heart disease status post tissue aortic valve replacement 2014 Chronic kidney disease Hypertension Diabetes mellitus with hypoglycemia on admission Dyslipidemia MARIANA with mild increase in CR Mild pauses up to 2.4 seconds while sleeping when in Afib, asymptomatic Severe pulmonary hypertension with RSVP 76 Chronic LE edema, may be a component of chronic venous insufficiency PLAN Increase Eliquis to 5mg bid, only has age 1/3 for lower dose and therefore would recommend 5mg dosing. Echo with preserved EF, mild gradient across valve and moderate to severe TR, moderate MR severe pulmonary hypertension. Patient with increasing Cr and currently able to lie flat in bed. Given increasing Cr we will decrease Lasix to once a day and recommendations edin reciated from nephro. Given pulmonary hypertension and if volume status ambiguous or worsening kidney function may consider right heart cath. Stop Cardizem drip. Appears fairly well rate controlled with Metoprolol. Objective - Vital Signs Vital signs: Vital Signs Temp 97.6 F 02/14/21 08:20 Pulse 70 02/14/21 08:20 Resp 26 H 02/14/21 08:20 BP 119/76 02/14/21 08:20 Pulse Ox 90 L 02/14/21 08:20 Intake & Output 02/13/21 02/14/21 02/14/21 18:59 06:59 18:59 Intake Total 362 600 Output Total 916 141 0114 Balance -138 -200 -500 Weight 106.594 kg 82 kg Intake: Intake, IV Titration 122 Amount Diltiazem 125 mg In 122 Sodium Chloride 0.9% 100 ml @ 5 MG/HR 5 mls/hr IV .Q24H [facility] Rx#:[id number] Oral 240 600 Output: Urine 500 200 200 Stool 900 Other: Voiding Method Urinal Urinal # Voids 1 # Bowel Movements 1 - Labs CBC & Chem 7: 02/14/21 09:01 02/14/21 09:01 Labs: Abnormal Lab Results - Last 24 Hours (Table) 02/13/21 02/13/21 02/13/21 Range/Units 08:18 12:04 20:11 RDW (11.5-15.5) % Neutrophils # (1.3-7.7) k/uL Sodium (137-145) mmol/L Carbon Dioxide (22-30) mmol/L BUN (9-20) mg/dL Creatinine (0.66-1.25) mg/dL Glucose (74-99) mg/dL POC Glucose (mg/dL) 107 H 408 H (75-99) mg/dL Magnesium 1.5 L (1.6-2.3) mg/dL Albumin (3.5-5.0) g/dL TSH <0.015 L (0.465-4.680) mIU/L Free T4 2.90 H (0.78-2.19) ng/dL 02/13/21 02/14/21 02/14/21 Range/Units 20:13 06:13 06:30 RDW (11.5-15.5) % Neutrophils # (1.3-7.7) k/uL Sodium (137-145) mmol/L Carbon Dioxide (22-30) mmol/L BUN (9-20) mg/dL Creatinine (0.66-1.25) mg/dL Glucose (74-99) mg/dL POC Glucose (mg/dL) 411 H 42 L 49 L (75-99) mg/dL Magnesium (1.6-2.3) mg/dL Albumin (3.5-5.0) g/dL TSH (0.465-4.680) mIU/L Free T4 (0.78-2.19) ng/dL 02/14/21 02/14/21 02/14/21 Range/Units 06:43 08:30 09:01 RDW 16.1 H (11.5-15.5) % Neutrophils # 7.9 H (1.3-7.7) k/uL Sodium (137-145) mmol/L Carbon Dioxide (22-30) mmol/L BUN (9-20) mg/dL Creatinine (0.66-1.25) mg/dL Glucose (74-99) mg/dL POC Glucose (mg/dL) 65 L 176 H (75-99) mg/dL Magnesium (1.6-2.3) mg/dL Albumin (3.5-5.0) g/dL TSH (0.465-4.680) mIU/L Free T4 (0.78-2.19) ng/dL 02/14/21 Range/Units 09:01 RDW (11.5-15.5) % Neutrophils # (1.3-7.7) k/uL Sodium 134 L (137-145) mmol/L Carbon Dioxide 20 L (22-30) mmol/L BUN 70 H (9-20) mg/dL Creatinine 3.18 H (0.66-1.25) mg/dL Glucose 218 H (74-99) mg/dL POC Glucose (mg/dL) (75-99) mg/dL Magnesium (1.6-2.3) mg/dL Albumin 3.4 L (3.5-5.0) g/dL TSH (0.465-4.680) mIU/L Free T4 (0.78-2.19) ng/dL Microbiology - Last 24 Hours (Table) 02/12/21 10:50 Blood Culture - Preliminary Blood No Growth after 24 hours 02/12/21 10:34 Blood Culture - Preliminary Blood No Growth after 24 hours
[2021-02-14 11:49] LABS: Glucose,Whole Blood 186 mg/dL (75-99)
--- NOTE | 2021-02-14 12:29 | CONS ---
CONSULTATION REASON FOR CONSULT: Renal failure. HISTORY OF PRESENT ILLNESS: The patient is a 70-year-old male who was admitted to the hospital on 02/12 with complaints of worsening shortness of breath, increased weakness and low O2 sats. His coronavirus PCR was negative. The patient did admit to increased lower extremity swelling for the last few days. He was found to be in atrial fibrillation with RVR and is maintained on Cardizem drip and also being diuresed. The patient states that he has been told his kidney function has been borderline. He denies use of any nonsteroidal anti-inflammatory agents prior to admission. Blood pressure has not been significantly low. The patient was not maintained on any CY inhibitors or angiotensin receptor blockers prior to admission. There is no history of NSAIDs. He states he has been voiding. Serum creatinine was 3.18 today. Creatinine on admission was 2.4 with previous reading of about [address] back to 2019. PAST MEDICAL HISTORY: Significant for coronary artery disease, CVA, TIA, type 2 diabetes, hyperlipidemia, history of PR, hypothyroidism, hypertension, neuropathy, obstructive sleep apnea, history of bowel resection, ileostomy. PAST SURGICAL HISTORY: Bowel resection, cardiac valve replacement which was aortic valve, hernia repair, shoulder surgery on the left shoulder, cardiac catheterization x3. SOCIAL HISTORY: Negative for smoking, drug abuse or alcohol abuse. MEDICATIONS: Medications prior to admission included Flexeril, Glucotrol, insulin, Drisdol, Uloric, Toprol, Zocor, Eliquis, Lasix, Norvasc, Restoril. ALLERGIES: Allergies include ALLOPURINOL causes rash and hives. PHYSICAL EXAMINATION: Patient is comfortable, awake, not in any acute distress. Alert, oriented x3. Blood pressure was 119/76, heart rate 70 per minute. He is afebrile. EXAMINATION OF THE HEART: S1, S2. EXAMINATION OF THE LUNGS: Bilateral breath sounds are heard. Abdomen is soft, nontender. Examination lower extremities shows edema with chronic skin changes. CASE RESOLUTION SPECIALIST exam grossly intact. Patient has an ileostomy. LABS: Labs show sodium 134, potassium 4.7, BUN 70, creatinine 3.1, hemoglobin 13.7 g/dL. ASSESSMENT: 1. Acute kidney injury, acute tubular necrosis, rule out obstructive uropathy. Check post-void bladder scan. Check ultrasound of the kidneys. Check urinalysis. Continue with the Lasix for now. May be cardiorenal acute kidney injury as well. 2. Chronic kidney disease with previous creatinine around 2.08. Etiology is likely diabetic kidney disease in view of proteinuria on a previous UA in 2019, NKF stage 4. 3. Volume overload, currently being diuresed. 4. Congestive heart failure acute on top of chronic, mostly diastolic, ejection fraction 55% to 60%. 5. Severely dilated left atrium and right ventricle with severe pulmonary hypertension. PLAN: May continue with the Lasix. Check urinalysis. Check post-void scan. Check ultrasound of the kidneys. Patient will need followup as outpatient for CKD. He is advised to avoid any nonsteroidal anti-inflammatory agents or any other nephrotoxic agents. Thank you for this consultation. Will continue to follow the patient with you during his hospitalization. MMODL / IJN: [id number] /
--- NOTE | 2021-02-14 13:05 | P.PN ---
Subjective Progress Note Date: 02/14/21 Faisal Andrade, is a 70-year-old male who presented to [facility] emergency room with a chief complaint of worsening shortness of breath over several weeks and cough and chest congestion, he was evaluated in the emergency room vital examination on presentation revealed a temperature of 96.7 also 130 respiration 26 blood pressure 142/87 pulse ox 96% on 3 L nasal cannula white blood count was 9.6 hemoglobin 14.1 platelet count 291 sodium 140 potassium 4.7 chloride 110 CO2 20 BUN 58 creatinine 2.4 troponin level was 0.044 BNP was elevated at 5717 Gu virus PCR was negative. Chest x-ray done in the emergency room revealed right lower lobe infiltrate suggestive of pneumonia, EKG revealed evidence of atrial fibrillation with rapid ventricular response. Patient was admitted to telemetry floor, he was started on IV antibiotics ceftriaxone and Zithromax, he was started on Cardizem drip, and IV Lasix, cardiology consultation and pulmonary consultation were requested. On 02/13/2021 patient was seen and examined on the medical floor, he is alert and oriented 3 in no apparent distress he is still complaining of shortness of breath however he noticed some improvement since yesterday he also had some occasional cough otherwise he denies any complaints there is no fever or chills no headache or dizziness no chest pain no nausea or vomiting no abdominal pain no diarrhea no blood in the stools no burning with urination no frequency or urgency and no hematuria he is maintained on IV Lasix his creatinine is going up chronic kidney disease will add a consult for nephrology at this time On 02/14/2021 patient currently resting on BiPAP. Patient does wake up quickly falls back to sleep. Per nursing staff patient remained short of breath with minimal activity. Patient remains on IV Lasix. IV Lasix have been decreased to 2 acute kidney injury. Cardiology, pulmonary and nephrology services are following. Ultrasound kidneys has been ordered per nephrology. At this time patient denies nausea vomiting or diarrhea. Patient denies any urinary burning or frequency Objective - Vital Signs Vital signs: Vital Signs Temp 97.6 F 02/14/21 12:14 Pulse 89 02/14/21 12:14 Resp 24 02/14/21 12:14 BP 119/77 02/14/21 12:14 Pulse Ox 87 L 02/14/21 12:14 Intake & Output 02/13/21 02/14/21 02/14/21 18:59 06:59 18:59 Intake Total 362 600 Output Total 300 739 1047 Balance -138 -200 -500 Weight 106.594 kg 82 kg Intake: Intake, IV Titration 122 Amount Diltiazem 125 mg In 122 Sodium Chloride 0.9% 100 ml @ 5 MG/HR 5 mls/hr IV .Q24H [facility] Rx#:[id number] Oral 240 600 Output: Urine 500 200 200 Stool 900 Other: Voiding Method Urinal Urinal # Voids 1 # Bowel Movements 1 - Exam In general patient is alert and oriented 3 in no apparent distress HEENT head normocephalic and atraumatic Neck is supple no JVD no goiter no lymphadenopathy Chest exam reveals crackles in both lung zhang no wheezing Cardiac exam reveals irregular heart sounds with tachycardia no murmurs Abdomen is soft nontender no organomegaly with normal bowel sounds Extremity exam reveals 1+ edema, there is a large scabbed ulcer on the left pretibial area with mild surrounding erythema Neurological examination reveals no gross focal deficit - Labs CBC & Chem 7: 02/14/21 09:01 02/14/21 09:01 Labs: Abnormal Lab Results - Last 24 Hours (Table) 02/13/21 02/13/21 02/14/21 Range/Units 20:11 20:13 06:13 RDW (11.5-15.5) % Neutrophils # (1.3-7.7) k/uL Sodium (137-145) mmol/L Carbon Dioxide (22-30) mmol/L BUN (9-20) mg/dL Creatinine (0.66-1.25) mg/dL Glucose (74-99) mg/dL POC Glucose (mg/dL) 408 H 411 H 42 L (75-99) mg/dL Albumin (3.5-5.0) g/dL 02/14/21 02/14/21 02/14/21 Range/Units 06:30 06:43 08:30 RDW (11.5-15.5) % Neutrophils # (1.3-7.7) k/uL Sodium (137-145) mmol/L Carbon Dioxide (22-30) mmol/L BUN (9-20) mg/dL Creatinine (0.66-1.25) mg/dL Glucose (74-99) mg/dL POC Glucose (mg/dL) 49 L 65 L 176 H (75-99) mg/dL Albumin (3.5-5.0) g/dL 02/14/21 02/14/21 02/14/21 Range/Units 09:01 09:01 11:48 RDW 16.1 H (11.5-15.5) % Neutrophils # 7.9 H (1.3-7.7) k/uL Sodium 134 L (137-145) mmol/L Carbon Dioxide 20 L (22-30) mmol/L BUN 70 H (9-20) mg/dL Creatinine 3.18 H (0.66-1.25) mg/dL Glucose 218 H (74-99) mg/dL POC Glucose (mg/dL) 186 H (75-99) mg/dL Albumin 3.4 L (3.5-5.0) g/dL Microbiology - Last 24 Hours (Table) 02/12/21 10:50 Blood Culture - Preliminary Blood No Growth after 24 hours 02/12/21 10:34 Blood Culture - Preliminary Blood No Growth after 24 hours Assessment and Plan Plan: Acute pneumonia patient was started on IV Rocephin and IV Zithromax. Pulmonary services are following Atrial fibrillation with rapid ventricular response. Patient remains on eliquis for anticoagulation. [facility] services are following Acute congestive heart failure exacerbation with check echocardiogram cardiology consultation requested. Patient remains on IV Lasix Underlying history of hypertension Underlying history of COPD Underlying history of coronary artery disease Underlying history of hyperlipidemia Underlying history of gout Acute kidney injury. Creatinine up to 3.16. Nephrology services are consulted. Ultrasound of kidneys ordered DVT prophylaxis eliquis. GI prophylaxis Protonix Patient remains on IV Rocephin and Zithromax Cardiology, pulmonary and nephrology services are following Remains on IV Lasix Ultrasound of kidneys ordered
--- NOTE | 2021-02-14 13:29 | US ---
EXAMINATION TYPE: US kidneys/renal and bladder DATE OF EXAM: 02/14/2021 COMPARISON: US 03/03/19 CLINICAL HISTORY: RF. EXAM MEASUREMENTS: Right Kidney: 11.0 x 6.1 x 5.7 cm Left Kidney: 11.8 x 6.3 x 5.9 cm Post Void Residual Volume: Not calculated mL Right Kidney: No hydronephrosis or masses seen Left Kidney: No hydronephrosis or masses seen Bladder: Unremarkable.Bilateral Jets seen: Not seen. Patient breathing interfered with color doppl er signal. Normal Post Void Residual: Not calculated on this inpatient. There is no evidence for hydronephrosis at this point in time. No nephrolithiasis is seen. No teresa s are identified. Kidneys show normal cortical medullary differentiation. Cortical echogenicity appe ars somewhat increased on the right, not as well seen on the left. The urinary bladder is anechoic. Bilateral ureteral jets are seen. IMPRESSION: Findings suggest medical renal disease
[2021-02-14 16:28] LABS: Appearance,Urine Clear (Clear); Bilirubin,Urine Negative (Negative); Blood,Urine Negative (Negative); Color,Urine Yellow; Glucose,Urine (UA) Negative (Negative); Hyaline Casts,Urine 4 /lpf (0-2); Ketones,Urine Negative (Negative); Leukocyte Esterase,Urine Negative (Negative); Mucus,Urine Rare /hpf; Nitrite,Urine Negative (Negative); Protein,Urine 1+ (Negative); Specific Gravity,Urine 1.011 (1.001-1.035); Urobilinogen,Urine <2.0 mg/dL (<2.0)
--- NOTE | 2021-02-14 16:48 | P.PN ---
Subjective Progress Note Date: 02/14/21 Principal diagnosis: Acute hypoxic respiratory failure secondary to acute community-acquired right lower lobe pneumonia and underlying COPD with acute exacerbation. 70-year-old male, seen by Dr. Medina and our office on February 12. The patient was very short of breath at that time, and quite hypoxemic, and he was sent to the emergency department for further evaluation. Currently, he is on nasal cannula at 6 L/m, saline at 20 mL an hour, and a Cardizem drip at 15 mg an hour. The patient apparently complained in the ER, that he is having difficulty breathing for several months prior to admission. Over the last few days, she got worse. He denied any chest pain or fever. He did have some lower extremity edema. He has a history of angina, CVA, diabetes, hyperlipidemia, hypertension, myocardial infarction, sleep apnea syndrome, hypothyroidism, aortic stenosis, status post aortic valve replacement, and bowel resection for colon cancer. White count 9.6, he will 14.1, hematocrit 43.4, and platelet count 291,000. PT 12.5 INR 1.2. Sodium 138, potassium 4.3, chlorides 105, CO2 21, anion gap 12, BUN 58, creatinine 2.39. Troponin was 0.049, and N-terminal proBNP was 5770. Chest x-ray was consistent with right lower lobe infiltrate/pneumonia. Patient was reevaluated today on 02/14/2021, patient is feeling better today compared to how he felt yesterday. Remains on antibiotics, bronchodilators, and he remains on bronchodilators, patient was earlier on nasal cannula, however later this afternoon he was transitioned to BiPAP because of low O2 saturations. Placed on BiPAP, his O2 saturation went up to 95%, presently on 50% 10/01. His electrodes are normal renal profile is poor with BUN of 70 creatinine 3.18. WBC count is 10.1 hemoglobin is 15.7. Patient had negative coronarvirus PCR. BNP was elevated at 5770, considering his cardiac history the patient may have a component of congestive heart failure, however chest x-ray is mostly suggestive of right lower lobe pneumonia and possibly some pleural effusion/small. Agent was seen by cardiology, and it was felt that the patient may have acute on chronic diastolic congestive heart failure and he had a troponin leak related to his renal functioning. Patient does have history of valvular heart disease and he is status post aortic valve replacement in 2014. Patient is also known to have history of severe pulmonary hypertension with right-sided pressures of 76 Objective - Vital Signs Vital signs: Vital Signs Temp 97.7 F 02/14/21 15:39 Pulse 95 02/14/21 15:58 Resp 28 H 02/14/21 15:51 BP 122/68 02/14/21 15:39 Pulse Ox 95 02/14/21 15:51 Intake & Output 02/13/21 02/14/21 02/14/21 18:59 06:59 18:59 Intake Total 362 840 Output Total 275 680 6160 Balance -138 -200 -1160 Weight 106.594 kg 82 kg Intake: Intake, IV Titration 122 Amount Diltiazem 125 mg In 122 Sodium Chloride 0.9% 100 ml @ 5 MG/HR 5 mls/hr IV .Q24H [facility] Rx#:[id number] Oral 240 840 Output: Urine 500 200 200 Stool 1800 Other: Voiding Method Urinal Urinal # Voids 1 # Bowel Movements 1 - Exam Physical Exam revealed 70-year-old white male in no distress. Head: Atraumatic, normocephalic. HEENT:[Neck is supple.] [No neck masses.] [No thyromegaly.] [No JVD.] Chest: [The medical chest expansion, bibasilar coarse rales and rhonchi noted. Cardiac Exam: [Irregular rhythm. Normal S1 and S2, no S3 gallop, 2/6 systolic murmur thought the precordium. Abdomen: [Soft, nontender, no megaly, no rebound, no guarding, normal bowel sounds.] Extremities: [No clubbing, no edema, no cyanosis.] Good pulses bilaterally. Neurological Exam: [No focal neurologic deficit.] Alert and oriented 3. Psychiatric: Normal mood, affect and normal mental status examination. Extremities: 1+ bipedal edema no tenderness. Musculoskeletal: No deformities noted limitation in range of motion. - Labs CBC & Chem 7: 02/14/21 09:01 02/14/21 09:01 Labs: Abnormal Lab Results - Last 24 Hours (Table) 02/13/21 02/13/21 02/14/21 Range/Units 20:11 20:13 06:13 RDW (11.5-15.5) % Neutrophils # (1.3-7.7) k/uL Sodium (137-145) mmol/L Carbon Dioxide (22-30) mmol/L BUN (9-20) mg/dL Creatinine (0.66-1.25) mg/dL Glucose (74-99) mg/dL POC Glucose (mg/dL) 408 H 411 H 42 L (75-99) mg/dL Albumin (3.5-5.0) g/dL Urine Protein (Negative) Hyaline Casts (0-2) /lpf Urine Mucus (None) /hpf 02/14/21 02/14/21 02/14/21 Range/Units 06:30 06:43 08:30 RDW (11.5-15.5) % Neutrophils # (1.3-7.7) k/uL Sodium (137-145) mmol/L Carbon Dioxide (22-30) mmol/L BUN (9-20) mg/dL Creatinine (0.66-1.25) mg/dL Glucose (74-99) mg/dL POC Glucose (mg/dL) 49 L 65 L 176 H (75-99) mg/dL Albumin (3.5-5.0) g/dL Urine Protein (Negative) Hyaline Casts (0-2) /lpf Urine Mucus (None) /hpf 02/14/21 02/14/21 02/14/21 Range/Units 09:01 09:01 11:48 RDW 16.1 H (11.5-15.5) % Neutrophils # 7.9 H (1.3-7.7) k/uL Sodium 134 L (137-145) mmol/L Carbon Dioxide 20 L (22-30) mmol/L BUN 70 H (9-20) mg/dL Creatinine 3.18 H (0.66-1.25) mg/dL Glucose 218 H (74-99) mg/dL POC Glucose (mg/dL) 186 H (75-99) mg/dL Albumin 3.4 L (3.5-5.0) g/dL Urine Protein (Negative) Hyaline Casts (0-2) /lpf Urine Mucus (None) /hpf 02/14/21 Range/Units 15:00 RDW (11.5-15.5) % Neutrophils # (1.3-7.7) k/uL Sodium (137-145) mmol/L Carbon Dioxide (22-30) mmol/L BUN (9-20) mg/dL Creatinine (0.66-1.25) mg/dL Glucose (74-99) mg/dL POC Glucose (mg/dL) (75-99) mg/dL Albumin (3.5-5.0) g/dL Urine Protein 1+ H (Negative) Hyaline Casts 4 H (0-2) /lpf Urine Mucus Rare H (None) /hpf Microbiology - Last 24 Hours (Table) 02/12/21 10:50 Blood Culture - Preliminary Blood No Growth after 48 hours 02/12/21 10:34 Blood Culture - Preliminary Blood No Growth after 48 hours Assessment and Plan Assessment: Impression: Acute on chronic hypoxic respiratory failure secondary to right lower lobe pneu monia/community-acquired. Suspect acute on chronic diastolic congestive heart failure. History of underlying COPD with mild exacerbation. Acute. Valvular heart disease and previous aortic valve replacement in 2014. Chronic kidney disease. Severe pulmonary hypertension. Type 2 diabetes. Dyslipidemia. Benign essential hypertension. Chronic cor pulmonale. History of obstructive sleep apnea syndrome uses CPAP. History of bowel resection for cancer. And previous ileostomy. History of CVA. New onset Atrial fibrillation with RVR could be treated by his underlying pneumonia, could also be paroxysmal atrial fibrillation. Recommendation: Continue present supportive care measures. Continue oxygen. Continue bronchodilators. Continue antibiotics. Patient is now on Rocephin and Zithromax. Resume home meds. Continue GI prophylaxis. Continue Lasix and monitor daily electrolytes and renal profile. Continue insulin. Continue Eliquis. Use CPAP or BiPAP as needed. We'll continue to follow. Long-term prognosis is definitely poor and guarded. Time with Patient: Less than 30
[2021-02-14 16:52] LABS: Glucose,Whole Blood 114 mg/dL (75-99)
[2021-02-14 20:05] LABS: Glucose,Whole Blood 105 mg/dL (75-99)
[2021-02-14] MEDS: APIXABAN 5 MG TAB PO SCH (21:23)
[2021-02-14] MEDS: HYDROcodone/APAP 10-325MG 1 EACH TAB PO PRN (21:23)
[2021-02-14] MEDS: AZITHROMYCIN 500 MG TAB PO SCH (21:23)
[2021-02-14] MEDS: LATANOPROST 0.005% OPHTH DROPS 2.5 ML BTL BOTH EYES SCH (21:24)
[2021-02-15 06:09] LABS: Glucose,Whole Blood 55 mg/dL (75-99)
[2021-02-15] MEDS: INSULIN ASPART (NovoLOG) 100 UNIT/ML VIAL SQ SCH ×4 (06:17→20:48)
[2021-02-15] MEDS: PANTOPRAZOLE 40 MG TABLET PO SCH (06:18)
[2021-02-15 06:23] LABS: Glucose,Whole Blood 58 mg/dL (75-99)
[2021-02-15 06:39] LABS: Glucose,Whole Blood 121 mg/dL (75-99)
[2021-02-15 09:00] LABS: Anisocytosis Slight; Basophils % (A) 0 %; Eosinophils # (A) 0.2 k/uL (0-0.7); Eosinophils % (A) 2 %; HCT 38.5 % (39.0-53.0); HGB 12.4 gm/dL (13.0-17.5); Lymphocytes # (A) 1.2 k/uL (1.0-4.8); Lymphocytes % (A) 15 %; MCH 28.5 pg (25.0-35.0); MCHC 32.2 g/dL (31.0-37.0); MCV 88.6 fL (80.0-100.0); Mean Platelet Volume 7.7; Monocytes # (A) 0.7 k/uL (0-1.0); Monocytes % (A) 9 %; Neutrophils # (A) 5.6 k/uL (1.3-7.7); Neutrophils % (A) 73 %; Platelet Count 222 k/uL (150-450); RBC 4.34 m/uL (4.30-5.90); RDW 16.2 % (11.5-15.5); WBC 7.7 k/uL (3.8-10.6)
[2021-02-15] MEDS ORDERED: FUROSEMIDE 10 MG/ML 4 ML VIAL IV SCH (09:00)
[2021-02-15 09:37] LABS: Albumin 2.8 g/dL (3.5-5.0); Calcium 8.9 mg/dL (8.4-10.2); Potassium 4.4 mmol/L (3.5-5.1); Total Bilirubin 0.5 mg/dL (0.2-1.3); Total Protein 5.5 g/dL (6.3-8.2)
[2021-02-15] MEDS: FENOFIBRATE 160 MG TAB PO SCH (09:40)
[2021-02-15] MEDS: METOPROLOL SUCCINATE (ER) 50 MG TAB.ER.24H PO SCH ×2 (09:40→20:34)
[2021-02-15] MEDS: amLODIPine 5 MG TAB PO SCH (09:41)
[2021-02-15] MEDS: INSULIN DETEMIR (LEVEMIR) 100 UNIT/ML SYR SQ SCH (09:41)
[2021-02-15] MEDS: APIXABAN 5 MG TAB PO SCH ×2 (09:41→20:34)
[2021-02-15] MEDS: ATORVASTATIN 10 MG TAB PO SCH (09:46)
[2021-02-15] MEDS: FEBUXOSTAT 80 MG PO SCH (10:27)
--- NOTE | 2021-02-15 11:26 | P.PN ---
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 He follows in the office with Dr. Bolaños. We have been asked to see in consultation for new onset atrial fibrillation. He presented to the emergency department with symptoms of shortness of breath that has been going on and getting worse for the previous couple of months. He has had increased lower extremity edema and dizziness. He denies symptoms of chest pain or palpitations. He department EKG was obtained revealing atrial fibrillation with rapid ventricular rate. He is a 30 antiplatelet coagulated on Eliquis due to history of PE and was initiated on Cardizem infusion. Chest x-ray obtained revealed right lower lung air space disease possibly atypical pulmonary edema ve rsus pneumonia. He has been started on IV antibiotics. He is also on IV diuretics. Blood sugar was low on arrival at 34. Telemetry tracings reveal ongoing atrial fibrillation with variable ventricular rates. Laboratory data reviewed, WBC 9.6, hemoglobin 14.1, platelets 291, sodium 138, potassium 4.3, creatinine 2.39, troponins 0.049 and 0.044, and T proBNP 5770. Current daily cardiac medications include Eliquis 2.5 mg twice a day, Lasix 40 mg twice a day, Toprol 50 mg twice a day, simvastatin 20 mg daily and amlodipine 5 mg daily. Most recent echocardiogram obtained in the office April 2020 revealed preserved LV systolic function with ejection fraction 55%, mild to moderate mitral regu rgitation, normally functioning prosthetic aortic valve with a mean gradient across the valve of 21 mmHg, mild to moderate tricuspid regurgitation and mild aortic regurgitation noted. Most recent stress test performed in the office in 2018 with a Lexiscan stress test that was negative for stress-induced ischemia. 02/14 Patient seen and examined. Patient admits his SOB is much improved from when he came in. He has been receivied IV Lasix 40mg IV bid. His Cr increased from 2.4 up to 3.18 today. Currently resting with his BIPAP on, lying flat in bed. Admits to chronic LE edema, usually worse at the end of the day similar to what he has now for years. 02/15 Patient seen and examined. Patient remains on BiPAP and states he is feeling better day by day. He does have a left anterior montejo nonhealing ulcer since December and also has a right dorsal foot approximately 2 cm ulceration which has been there for approximately a month which she believes may be related to frostbite. He denies any chest pain or pressure. His Lasix was decreased to 40 mg IV daily. His creatinine today is 2.77, improved from yesterday at 3.18. Heart rates 90s to low 100s. He has been on Toprol 50 mg twice a day. REVIEW OF SYSTEMS At the time of my exam: CONSTITUTIONAL: Denies fever or chills. CARDIOVASCULAR: Denies chest pain, shortness of breath, orthopnea, PND or palpitations. RESPIRATORY: Denies cough. GASTROINTESTINAL: Denies abdominal pain, diarrhea, constipation, nausea or vomiting. MUSCULOSKELETAL: Denies myalgias. NEUROLOGIC: Denies numbness, tingling, headacbe or weakness. ENDOCRINE: Denies fatigue, weight change, polydipsia or polyurina. GENITOURINARY: Denies burning, hematuria or urgency with micturation. HEMATOLOGIC: Denies history of anemia or bleeding. PHYSICAL EXAMINATION Vitals reviewed CONSTITUTIONAL: No apparent distress. HEENT: Head is normocephalic. Pupils are equal, round. Sclerae anicteric. Mucous membranes of the mouth are moist. No JVD. No carotid bruit. CHEST EXAMINATION: Bibasilar coarse rales, scattered rhonchi, no wheezes. No chest wall tenderness is noted on palpation or with deep breathing. HEART EXAMINATION: Irregular rate and rhythm. S1, S2 heard. Systolic ejection murmur at the base, no gallops or rub. ABDOMEN: Soft, nontender. Positive bowel sounds. EXTREMITIES: 2+ peripheral pulses, 2+ bilateral lower extremity pitting edema and no calf tenderness. +right foot and left anterior montejo ulcers NEUROLOGIC EXAMINATION: Patient is awake, alert and oriented x3. ASSESSMENT New onset paroxysmal atrial fibrillation with rapid ventricular rate Acute on chronic diastolic heart failure Hypoxia Troponin leak, likely related to renal function. There is flat appearance with no significant rise and fall pattern suggestive of myocardial injury. Valvular heart disease status post tissue aortic valve replacement 2014 Chronic kidney disease Hypertension Diabetes mellitus with hypoglycemia on admission Dyslipidemia MARIANA with mild increase in CR Mild pauses up to 2.4 seconds while sleeping when in Afib, asymptomatic Severe pulmonary hypertension with RSVP 76 Chronic LE edema, may be a component of chronic venous insufficiency Bilateral nonhealing left foot and right montejo ulcers PLAN Continue Eliquis 5mg bid Echo with preserved EF, mild gradient across valve and moderate to severe TR, moderate MR severe pulmonary hypertension. Nephro recommendations appreciated. Cr appears fairly stable Mildly elevated HR's and therefore we will stop his Amlodipine and start Cardizem 30mg PO QID. Objective - Vital Signs Vital signs: Vital Signs Temp 98.9 F 02/15/21 08:00 Pulse 99 02/15/21 08:00 Resp 22 02/15/21 08:00 BP 122/77 02/15/21 08:00 Pulse Ox 95 02/15/21 08:00 Intake & Output 02/14/21 02/15/21 02/15/21 18:59 06:59 18:59 Intake Total 840 Output Total 2300 1400 900 Balance -1460 -1400 -900 Weight 73.5 kg Intake: Oral 840 Output: Urine 500 800 900 Stool 1800 600 Other: Voiding Method Urinal Urinal Urinal # Voids 1 2 - Labs CBC & Chem 7: 02/15/21 08:27 02/15/21 08:27 Labs: Abnormal Lab Results - Last 24 Hours (Table) 02/14/21 02/14/21 02/14/21 Range/Units 11:48 15:00 16:50 Hgb (13.0-17.5) gm/dL Hct (39.0-53.0) % RDW (11.5-15.5) % BUN (9-20) mg/dL Creatinine (0.66-1.25) mg/dL Glucose (74-99) mg/dL POC Glucose (mg/dL) 186 H 114 H (75-99) mg/dL Total Protein (6.3-8.2) g/dL Albumin (3.5-5.0) g/dL Urine Protein 1+ H (Negative) Hyaline Casts 4 H (0-2) /lpf Urine Mucus Rare H (None) /hpf 02/14/21 02/15/21 02/15/21 Range/Units 20:03 06:06 06:22 Hgb (13.0-17.5) gm/dL Hct (39.0-53.0) % RDW (11.5-15.5) % BUN (9-20) mg/dL Creatinine (0.66-1.25) mg/dL Glucose (74-99) mg/dL POC Glucose (mg/dL) 105 H 55 L 58 L (75-99) mg/dL Total Protein (6.3-8.2) g/dL Albumin (3.5-5.0) g/dL Urine Protein (Negative) Hyaline Casts (0-2) /lpf Urine Mucus (None) /hpf 02/15/21 02/15/21 02/15/21 Range/Units 06:36 08:27 08:27 Hgb 12.4 L (13.0-17.5) gm/dL Hct 38.5 L (39.0-53.0) % RDW 16.2 H (11.5-15.5) % BUN 68 H (9-20) mg/dL Creatinine 2.77 H (0.66-1.25) mg/dL Glucose 119 H (74-99) mg/dL POC Glucose (mg/dL) 121 H (75-99) mg/dL Total Protein 5.5 L (6.3-8.2) g/dL Albumin 2.8 L (3.5-5.0) g/dL Urine Protein (Negative) Hyaline Casts (0-2) /lpf Urine Mucus (None) /hpf Microbiology - Last 24 Hours (Table) 02/12/21 10:50 Blood Culture - Preliminary Blood No Growth after 48 hours 02/12/21 10:34 Blood Culture - Preliminary Blood No Growth after 48 hours
[2021-02-15 11:43] LABS: Glucose,Whole Blood 63 mg/dL (75-99)
[2021-02-15] MEDS: DILTIAZEM ORAL 30 MG TAB PO SCH ×3 (15:25→22:53)
[2021-02-15] MEDS: HYDROcodone/APAP 10-325MG 1 EACH TAB PO PRN ×2 (15:25→22:55)
[2021-02-15] MEDS: ALBUTEROL NEBULIZED 2.5 MG/3 ML INHALATION PRN ×2 (16:09→19:52)
--- NOTE | 2021-02-15 16:38 | P.PN ---
Subjective Progress Note Date: 02/15/21 Principal diagnosis: Acute hypoxic respiratory failure secondary to acute community-acquired right lower lobe pneumonia and underlying COPD with acute exacerbation. 70-year-old male, seen by Dr. Medina and our office on February 12. The patient was very short of breath at that time, and quite hypoxemic, and he was sent to the emergency department for further evaluation. Currently, he is on nasal cannula at 6 L/m, saline at 20 mL an hour, and a Cardizem drip at 15 mg an hour. The patient apparently complained in the ER, that he is having difficulty breathing for several months prior to admission. Over the last few days, she got worse. He denied any chest pain or fever. He did have some lower extremity edema. He has a history of angina, CVA, diabetes, hyperlipidemia, hypertension, myocardial infarction, sleep apnea syndrome, hypothyroidism, aortic stenosis, status post aortic valve replacement, and bowel resection for colon cancer. White count 9.6, he will 14.1, hematocrit 43.4, and platelet count 291,000. PT 12.5 INR 1.2. Sodium 138, potassium 4.3, chlorides 105, CO2 21, anion gap 12, BUN 58, creatinine 2.39. Troponin was 0.049, and N-terminal proBNP was 5770. Chest x-ray was consistent with right lower lobe infiltrate/pneumonia. Patient was reevaluated today on 02/14/2021, patient is feeling better today compared to how he felt yesterday. Remains on antibiotics, bronchodilators, and he remains on bronchodilators, patient was earlier on nasal cannula, however later this afternoon he was transitioned to BiPAP because of low O2 saturations. Placed on BiPAP, his O2 saturation went up to 95%, presently on 50% 10/01. His electrodes are normal renal profile is poor with BUN of 70 creatinine 3.18. WBC count is 10.1 hemoglobin is 15.7. Patient had negative coronarvirus PCR. BNP was elevated at 5770, considering his cardiac history the patient may have a component of congestive heart failure, however chest x-ray is mostly suggestive of right lower lobe pneumonia and possibly some pleural effusion/small. Agent was seen by cardiology, and it was felt that the patient may have acute on chronic diastolic congestive heart failure and he had a troponin leak related to his renal functioning. Patient does have history of valvular heart disease and he is status post aortic valve replacement in 2015. Patient is also known to have history of severe pulmonary hypertension with right-sided pressures of 76 Patient was reevaluated today on 02/15/2021, patient is feeling better, breathing a bit easier, remains on antibiotics, bronchodilators, and diuretics. Today I even increased the dose of his diuretics, patient is on 10 L high flow nasal cannula, yesterday he was on BiPAP. Patient tells me that his feeling much better. However on physical examination continues to have significant crackles bilaterally. His BNP level was elevated, hence I recommended that we continue diuretics, and the dose was increased. Patient remains on Eliquis, remains on Zithromax and Rocephin, is also on diltiazem. I increased the dose of Lasix to 40 mg IV push twice a day. He is on 10 L high flow cannula. Objective - Vital Signs Vital signs: Vital Signs Temp 98.6 F 02/15/21 12:00 Pulse 110 H 02/15/21 16:31 Resp 28 H 02/15/21 15:20 BP 132/88 02/15/21 15:20 Pulse Ox 97 02/15/21 15:20 Intake & Output 02/14/21 02/15/21 02/15/21 18:59 06:59 18:59 Intake Total 840 240 Output Total 2300 1400 1000 Balance -1460 -1400 -760 Weight 73.5 kg Intake: Oral 840 240 Output: Urine 242 418 5936 Stool 1800 600 Other: Voiding Method Urinal Urinal Urinal # Voids 1 2 - Exam Physical Exam revealed 70-year-old white male in no distress. On 10 L high flow cannula. Head: Atraumatic, normocephalic. HEENT:[Neck is supple.] [No neck masses.] [No thyromegaly.] [No JVD.] Chest: [The medical chest expansion, bibasilar coarse rales and rhonchi noted. Cardiac Exam: [Irregular rhythm. Normal S1 and S2, no S3 gallop, 2/6 systolic murmur thought the precordium. Abdomen: [Soft, nontender, no megaly, no rebound, no guarding, normal bowel sounds.] Extremities: [No clubbing, no edema, no cyanosis.] Good pulses bilaterally. Neurological Exam: [No focal neurologic deficit.] Alert and oriented 3. Psychiatric: Normal mood, affect and normal mental status examination. Extremities: 1+ bipedal edema no tenderness. Musculoskeletal: No deformities noted limitation in range of motion. - Labs CBC & Chem 7: 02/15/21 08:27 02/15/21 08:27 Labs: Abnormal Lab Results - Last 24 Hours (Table) 02/14/21 02/14/21 02/15/21 Range/Units 16:50 20:03 06:06 Hgb (13.0-17.5) gm/dL Hct (39.0-53.0) % RDW (11.5-15.5) % BUN (9-20) mg/dL Creatinine (0.66-1.25) mg/dL Glucose (74-99) mg/dL POC Glucose (mg/dL) 114 H 105 H 55 L (75-99) mg/dL Total Protein (6.3-8.2) g/dL Albumin (3.5-5.0) g/dL 02/15/21 02/15/21 02/15/21 Range/Units 06:22 06:36 08:27 Hgb 12.4 L (13.0-17.5) gm/dL Hct 38.5 L (39.0-53.0) % RDW 16.2 H (11.5-15.5) % BUN (9-20) mg/dL Creatinine (0.66-1.25) mg/dL Glucose (74-99) mg/dL POC Glucose (mg/dL) 58 L 121 H (75-99) mg/dL Total Protein (6.3-8.2) g/dL Albumin (3.5-5.0) g/dL 02/15/21 02/15/21 Range/Units 08:27 11:41 Hgb (13.0-17.5) gm/dL Hct (39.0-53.0) % RDW (11.5-15.5) % BUN 68 H (9-20) mg/dL Creatinine 2.77 H (0.66-1.25) mg/dL Glucose 119 H (74-99) mg/dL POC Glucose (mg/dL) 63 L (75-99) mg/dL Total Protein 5.5 L (6.3-8.2) g/dL Albumin 2.8 L (3.5-5.0) g/dL Microbiology - Last 24 Hours (Table) 02/12/21 10:50 Blood Culture - Preliminary Blood No Growth after 72 hours 02/12/21 10:34 Blood Culture - Preliminary Blood No Growth after 72 hours Assessment and Plan Assessment: Impression: Acute on chronic hypoxic respiratory failure secondary to right lower lobe pneumonia/community-acquired. Suspect acute on chronic diastolic congestive heart failure. History of underlying COPD with mild exacerbation. Acute. Valvular heart disease and previous aortic valve replacement in 2014. Chronic kidney disease. Severe pulmonary hypertension. Type 2 diabetes. Dyslipidemia. Benign essential hypertension. Chronic cor pulmonale. History of obstructive sleep apnea syndrome uses CPAP. History of bowel resection for cancer. And previous ileostomy. History of CVA. New onset Atrial fibrillation with RVR could be treated by his underlying pneumonia, could also be paroxysmal atrial fibrillation. Recommendation: Continue Lasix and antibiotics. Rocephin and Zithromax Continue present supportive care measures. Continue oxygen. Continue bronchodilators. Continue GI prophylaxis. Monitor daily electrolytes and renal profile. Continue insulin. Continue Eliquis. Use BiPAP as needed. We'll continue to follow. Time with Patient: Less than 30
[2021-02-15 17:32] LABS: Glucose,Whole Blood 146 mg/dL (75-99)
--- NOTE | 2021-02-15 17:38 | PN ---
PROGRESS NOTE Patient is seen for followup for acute kidney injury. He was admitted to the hospital with volume overload, CHF exacerbation. He is currently maintained on diuretics. Serum creatinine has been staying at about 2.4 to 2.3 mg/dL. It is up to 2.7 today. Patient does have CKD with previous creatinine at about 2 to 2.2 mg/dL. This morning he states he is feeling better, breathing much easier. Blood pressure was 146/99, heart rate 115 per minute. Patient is afebrile. EXAMINATION OF THE HEART: S1 and S2. EXAMINATION OF LUNGS: Decreased breath sounds at bases. ABDOMEN: Soft, obese, non-tender. Examination of lower extremities shows edema 1+ bilaterally. [employer] exam is grossly intact. Labs show sodium 137, potassium 4.4, BUN 68, serum creatinine 2.7 mg/dL. UA is quite benign. ASSESSMENT: 1. Acute kidney injury, cardiorenal, with component of acute tubular necrosis, currently nonoliguric. Serum creatinine is slightly higher today. I will decrease the Lasix in a.m. No other nephrotoxic agents present. 2. Chronic kidney disease with previous creatinine around 2 mg/dL secondary to diabetic kidney disease, NKF stage IV. 3. Congestive heart failure, acute on top of chronic, diastolic, ejection fraction 55% to 60%. 4. Severely dilated left atrium and right ventricle with severe pulmonary hypertension. PLAN: Continue with current dose of Lasix for now. Repeat labs in a.m. Will switch to oral diuretics tomorrow or decrease to IV once a day. Patient's weight has significantly decreased, if this is accurate. MMODL / IJN: [id number] /
--- NOTE | 2021-02-15 17:58 | P.PN ---
Subjective Progress Note Date: 02/15/21 Faisal Andrade, is a 70-year-old male who presented to [facility] emergency room with a chief complaint of worsening shortness of breath over several weeks and cough and chest congestion, he was evaluated in the emergency room vital examination on presentation revealed a temperature of 96.7 also 130 respiration 26 blood pressure 142/87 pulse ox 96% on 3 L nasal cannula white blood count was 9.6 hemoglobin 14.1 platelet count 291 sodium 140 potassium 4.7 chloride 110 CO2 20 BUN 58 creatinine 2.4 troponin level was 0.044 BNP was elevated at 5717 Gu virus PCR was negative. Chest x-ray done in the emergency room revealed right lower lobe infiltrate suggestive of pneumonia, EKG revealed evidence of atrial fibrillation with rapid ventricular response. Patient was admitted to telemetry floor, he was started on IV antibiotics ceftriaxone and Zithromax, he was started on Cardizem drip, and IV Lasix, cardiology consultation and pulmonary consultation were requested. On 02/13/2021 patient was seen and examined on the medical floor, he is alert and oriented 3 in no apparent distress he is still complaining of shortness of breath however he noticed some improvement since yesterday he also had some occasional cough otherwise he denies any complaints there is no fever or chills no headache or dizziness no chest pain no nausea or vomiting no abdominal pain no diarrhea no blood in the stools no burning with urination no frequency or urgency and no hematuria he is maintained on IV Lasix his creatinine is going up chronic kidney disease will add a consult for nephrology at this time On 02/14/2021 patient currently resting on BiPAP. Patient does wake up quickly falls back to sleep. Per nursing staff patient remained short of breath with minimal activity. Patient remains on IV Lasix. IV Lasix have been decreased to 2 acute kidney injury. Cardiology, pulmonary and nephrology services are following. Ultrasound kidneys has been ordered per nephrology. At this time patient denies nausea vomiting or diarrhea. Patient denies any urinary burning or frequency On 02/15/2021 patient currently resting on BiPAP. Patient does wake up quickly falls back to sleep. Per nursing staff patient remained short of breath with minimal activity. he is still complaining of shortness of breath however he noticed some improvement since yesterday he also had some occasional cough otherwise he denies any complaints there is no fever or chills no headache or dizziness no chest pain no nausea or vomiting no abdominal pain no diarrhea no blood in the stools no burning with urination no frequency or urgency and no hematuria he is maintained on IV Lasix his creatinine is going up chronic kidney disease will add a consult for nephrology at this time. Patient remains on IV L asix. IV Lasix have been decreased to 2 acute kidney injury. Cardiology, pulmonary and nephrology services are following. Ultrasound kidneys has been ordered per nephrology. At this time patient denies nausea vomiting or diarrhea. Patient denies any urinary burning or frequency Objective - Vital Signs Vital signs: Vital Signs Temp 98.6 F 02/15/21 12:00 Pulse 110 H 02/15/21 16:31 Resp 28 H 02/15/21 15:20 BP 132/88 02/15/21 15:20 Pulse Ox 97 02/15/21 15:20 Intake & Output 02/14/21 02/15/21 02/15/21 18:59 06:59 18:59 Intake Total 840 240 Output Total 2300 1400 1000 Balance -1460 -1400 -760 Weight 73.5 kg Intake: Oral 840 240 Output: Urine 634 899 3030 Stool 1800 600 Other: Voiding Method Urinal Urinal Urinal # Voids 1 2 - Exam In general patient is alert and oriented 3 in no apparent distress HEENT head normocephalic and atraumatic Neck is supple no JVD no goiter no lymphadenopathy Chest exam reveals crackles in both lung zhang no wheezing Cardiac exam reveals irregular heart sounds with tachycardia no murmurs Abdomen is soft nontender no organomegaly with normal bowel sounds Extremity exam reveals 1+ edema, there is a large scabbed ulcer on the left pretibial area with mild surrounding erythema Neurological examination reveals no gross focal deficit - Labs CBC & Chem 7: 02/15/21 08:27 02/15/21 08:27 Labs: Abnormal Lab Results - Last 24 Hours (Table) 02/14/21 02/15/21 02/15/21 Range/Units 20:03 06:06 06:22 Hgb (13.0-17.5) gm/dL Hct (39.0-53.0) % RDW (11.5-15.5) % BUN (9-20) mg/dL Creatinine (0.66-1.25) mg/dL Glucose (74-99) mg/dL POC Glucose (mg/dL) 105 H 55 L 58 L (75-99) mg/dL Total Protein (6.3-8.2) g/dL Albumin (3.5-5.0) g/dL 02/15/21 02/15/21 02/15/21 Range/Units 06:36 08:27 08:27 Hgb 12.4 L (13.0-17.5) gm/dL Hct 38.5 L (39.0-53.0) % RDW 16.2 H (11.5-15.5) % BUN 68 H (9-20) mg/dL Creatinine 2.77 H (0.66-1.25) mg/dL Glucose 119 H (74-99) mg/dL POC Glucose (mg/dL) 121 H (75-99) mg/dL Total Protein 5.5 L (6.3-8.2) g/dL Albumin 2.8 L (3.5-5.0) g/dL 02/15/21 02/15/21 Range/Units 11:41 17:13 Hgb (13.0-17.5) gm/dL Hct (39.0-53.0) % RDW (11.5-15.5) % BUN (9-20) mg/dL Creatinine (0.66-1.25) mg/dL Glucose (74-99) mg/dL POC Glucose (mg/dL) 63 L 146 H (75-99) mg/dL Total Protein (6.3-8.2) g/dL Albumin (3.5-5.0) g/dL Microbiology - Last 24 Hours (Table) 02/12/21 10:50 Blood Culture - Preliminary Blood No Growth after 72 hours 02/12/21 10:34 Blood Culture - Preliminary Blood No Growth after 72 hours Assessment and Plan Plan: Acute pneumonia patient was started on IV Rocephin and IV Zithromax. Pulmonary services are following Atrial fibrillation with rapid ventricular response. Patient remains on eliquis for anticoagulation. Senia mendenhall DC'keerthi. Cardiology services are following Acute congestive heart failure exacerbation with check echocardiogram cardiology consultation requested. Patient remains on IV Lasix Underlying history of hypertension Underlying history of COPD Underlying history of coronary artery disease Underlying history of hyperlipidemia Underlying history of gout Acute kidney injury. Creatinine up to 3.16. Nephrology services are consulted. Ultrasound of kidneys ordered DVT prophylaxis eliquis. GI prophylaxis Protonix Patient remains on IV Rocephin and Zithromax Cardiology, pulmonary and nephrology services are following Remains on IV Lasix Ultrasound of kidneys ordered
[2021-02-15 19:56] LABS: Glucose,Whole Blood 148 mg/dL (75-99)
[2021-02-15] MEDS: LATANOPROST 0.005% OPHTH DROPS 2.5 ML BTL BOTH EYES SCH (20:34)
[2021-02-15] MEDS: AZITHROMYCIN 500 MG TAB PO SCH (20:34)
[2021-02-15] MEDS: FUROSEMIDE 10 MG/ML 4 ML VIAL IV SCH (20:35)
[2021-02-16 06:16] LABS: Glucose,Whole Blood 85 mg/dL (75-99)
[2021-02-16] MEDS: PANTOPRAZOLE 40 MG TABLET PO SCH (06:20)
[2021-02-16] MEDS: INSULIN ASPART (NovoLOG) 100 UNIT/ML VIAL SQ SCH ×4 (06:21→20:48)
[2021-02-16] MEDS: ALBUTEROL NEBULIZED 2.5 MG/3 ML INHALATION PRN ×4 (08:25→19:45)
[2021-02-16] MEDS: METOPROLOL SUCCINATE (ER) 50 MG TAB.ER.24H PO SCH ×2 (08:51→20:48)
[2021-02-16] MEDS: DILTIAZEM ORAL 30 MG TAB PO SCH ×4 (08:51→20:48)
[2021-02-16] MEDS: APIXABAN 5 MG TAB PO SCH ×2 (08:51→20:48)
[2021-02-16] MEDS: FENOFIBRATE 160 MG TAB PO SCH (08:51)
[2021-02-16] MEDS: ATORVASTATIN 10 MG TAB PO SCH (08:51)
[2021-02-16] MEDS: INSULIN DETEMIR (LEVEMIR) 100 UNIT/ML SYR SQ SCH (08:52)
--- NOTE | 2021-02-16 11:23 | P.PN ---
Subjective Progress Note Date: 02/16/21 Faisal Andrade, is a 70-year-old male who presented to [facility] emergency room with a chief complaint of worsening shortness of breath over several weeks and cough and chest congestion, he was evaluated in the emergency room vital examination on presentation revealed a temperature of 96.7 also 130 respiration 26 blood pressure 142/87 pulse ox 96% on 3 L nasal cannula white blood count was 9.6 hemoglobin 14.1 platelet count 291 sodium 140 potassium 4.7 chloride 110 CO2 20 BUN 58 creatinine 2.4 troponin level was 0.044 BNP was elevated at 5717 Ug virus PCR was negative. Chest x-ray done in the emergency room revealed right lower lobe infiltrate suggestive of pneumonia, EKG revealed evidence of atrial fibrillation with rapid ventricular response. Patient was admitted to telemetry floor, he was started on IV antibiotics ceftriaxone and Zithromax, he was started on Cardizem drip, and IV Lasix, cardiology consultation and pulmonary consultation were requested. On 02/13/2021 patient was seen and examined on the medical floor, he is alert and oriented 3 in no apparent distress he is still complaining of shortness of breath however he noticed some improvement since yesterday he also had some occasional cough otherwise he denies any complaints there is no fever or chills no headache or dizziness no chest pain no nausea or vomiting no abdominal pain no diarrhea no blood in the stools no burning with urination no frequency or urgency and no hematuria he is maintained on IV Lasix his creatinine is going up chronic kidney disease will add a consult for nephrology at this time On 02/14/2021 patient currently resting on BiPAP. Patient does wake up quickly falls back to sleep. Per nursing staff patient remained short of breath with minimal activity. Patient remains on IV Lasix. IV Lasix have been decreased to 2 acute kidney injury. Cardiology, pulmonary and nephrology services are following. Ultrasound kidneys has been ordered per nephrology. At this time patient denies nausea vomiting or diarrhea. Patient denies any urinary burning or frequency On 02/15/2021 patient currently resting on BiPAP. Patient does wake up quickly falls back to sleep. Per nursing staff patient remained short of breath with minimal activity. he is still complaining of shortness of breath however he noticed some improvement since yesterday he also had some occasional cough otherwise he denies any complaints there is no fever or chills no headache or dizziness no chest pain no nausea or vomiting no abdominal pain no diarrhea no blood in the stools no burning with urination no frequency or urgency and no hematuria he is maintained on IV Lasix his creatinine is going up chronic kidney disease will add a consult for nephrology at this time. Patient remains on IV L asix. IV Lasix have been decreased to 2 acute kidney injury. Cardiology, pulmonary and nephrology services are following. Ultrasound kidneys has been ordered per nephrology. At this time patient denies nausea vomiting or diarrhea. Patient denies any urinary burning or frequency On 02/16/2021 patient currently resting on BiPAP. Patient does wake up was able to keep breakfast. Patient maintained on IV Lasix 40 mg twice a day. Ultrasound of kidneys completed showing findings suggestive of medical renal disease. Repeat labs have been ordered. Patient denies chest pain. Patient denies nausea vomiting or diarrhea. Patient denies any urinary burning or frequency. Cardiology, pulmonary and nephrology services are following Objective - Vital Signs Vital signs: Vital Signs Temp 97.9 F 02/16/21 07:47 Pulse 108 H 02/16/21 08:37 Resp 24 02/16/21 07:47 BP 143/92 02/16/21 07:47 Pulse Ox 90 L 02/16/21 07:47 Intake & Output 02/15/21 02/16/21 02/16/21 18:59 06:59 18:59 Intake Total 480 118 Output Total 1000 1500 125 Balance -520 -1500 -7 Weight 66.5 kg Intake: Oral 480 118 Output: Urine 1000 900 125 Stool 600 Other: Voiding Method Urinal Urinal # Voids 2 # Bowel Movements 1 - Exam In general patient is alert and oriented 3 in no apparent distress HEENT head normocephalic and atraumatic Neck is supple no JVD no goiter no lymphadenopathy Chest exam reveals crackles in both lung zhang no wheezing Cardiac exam reveals irregular heart sounds with tachycardia no murmurs Abdomen is soft nontender no organomegaly with normal bowel sounds Extremity exam reveals 1+ edema, there is a large scabbed ulcer on the left pretibial area with mild surrounding erythema Neurological examination reveals no gross focal deficit - Labs CBC & Chem 7: 02/15/21 08:27 02/15/21 08:27 Labs: Abnormal Lab Results - Last 24 Hours (Table) 02/15/21 02/15/21 02/15/21 Range/Units 08:27 11:41 17:13 POC Glucose (mg/dL) 63 L 146 H (75-99) mg/dL Procalcitonin 0.41 H (0.02-0.09) ng/mL 02/15/21 Range/Units 19:47 POC Glucose (mg/dL) 148 H (75-99) mg/dL Procalcitonin (0.02-0.09) ng/mL Microbiology - Last 24 Hours (Table) 02/12/21 10:50 Blood Culture - Preliminary Blood No Growth after 72 hours 02/12/21 10:34 Blood Culture - Preliminary Blood No Growth after 72 hours Assessment and Plan Plan: Acute pneumonia patient was started on IV Rocephin and IV Zithromax. Pulmonary services are following Atrial fibrillation with rapid ventricular response. Patient remains on eliquis for anticoagulation. Senia mendenhall DC'd. Cardiology services are following Acute congestive heart failure exacerbation with check echocardiogram cardiology consultation requested. Patient remains on IV Lasix Underlying history of hypertension Underlying history of COPD Underlying history of coronary artery disease Underlying history of hyperlipidemia Underlying history of gout Acute kidney injury. Creatinine up to 3.16. Nephrology services are consulted. Ultrasound of kidneys completed showing findings suggestive of medical renal disease. DVT prophylaxis eliquis. GI prophylaxis Protonix Patient remains on IV Rocephin and Zithromax Cardiology, pulmonary and nephrology services are following Remains on IV Lasix
[2021-02-16] MEDS: FEBUXOSTAT 80 MG PO SCH (11:52)
[2021-02-16] MEDS: FUROSEMIDE 10 MG/ML 4 ML VIAL IV SCH ×2 (12:02→20:48)
[2021-02-16] MEDS: HYDROcodone/APAP 10-325MG 1 EACH TAB PO PRN ×2 (12:14→20:48)
[2021-02-16 12:17] LABS: Glucose,Whole Blood 119 mg/dL (75-99)
[2021-02-16 12:21] LABS: Anisocytosis Slight; Basophils % (A) 0 %; Eosinophils # (A) 0.1 k/uL (0-0.7); Eosinophils % (A) 1 %; HCT 39.3 % (39.0-53.0); HGB 12.6 gm/dL (13.0-17.5); Hypochromasia Slight; Lymphocytes # (A) 0.8 k/uL (1.0-4.8); Lymphocytes % (A) 7 %; MCH 28.4 pg (25.0-35.0); MCHC 31.9 g/dL (31.0-37.0); Mean Platelet Volume 7.7; Monocytes # (A) 0.6 k/uL (0-1.0); Monocytes % (A) 6 %; Neutrophils # (A) 9.1 k/uL (1.3-7.7); Neutrophils % (A) 85 %; Platelet Count 210 k/uL (150-450); RBC 4.42 m/uL (4.30-5.90); RDW 16.1 % (11.5-15.5); WBC 10.7 k/uL (3.8-10.6)
[2021-02-16 12:32] LABS: Albumin 2.9 g/dL (3.5-5.0); Calcium 8.7 mg/dL (8.4-10.2); Potassium 4.2 mmol/L (3.5-5.1); Total Bilirubin 0.6 mg/dL (0.2-1.3); Total Protein 5.7 g/dL (6.3-8.2)
--- NOTE | 2021-02-16 14:19 | P.PN ---
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 He follows in the office with Dr. Bolaños. We have been asked to see in consultation for new onset atrial fibrillation. He presented to the emergency department with symptoms of shortness of breath that has been going on and getting worse for the previous couple of months. He has had increased lower extremity edema and dizziness. He denies symptoms of chest pain or palpitations. He department EKG was obtained revealing atrial fibrillation with rapid ventricular rate. He is a 30 antiplatelet coagulated on Eliquis due to history of PE and was initiated on Cardizem infusion. Chest x-ray obtained revealed right lower lung air space disease possibly atypical pulmonary edema ve rsus pneumonia. He has been started on IV antibiotics. He is also on IV diuretics. Blood sugar was low on arrival at 34. Telemetry tracings reveal ongoing atrial fibrillation with variable ventricular rates. Laboratory data reviewed, WBC 9.6, hemoglobin 14.1, platelets 291, sodium 138, potassium 4.3, creatinine 2.39, troponins 0.049 and 0.044, and T proBNP 5770. Current daily cardiac medications include Eliquis 2.5 mg twice a day, Lasix 40 mg twice a day, Toprol 50 mg twice a day, simvastatin 20 mg daily and amlodipine 5 mg daily. Most recent echocardiogram obtained in the office April 2020 revealed preserved LV systolic function with ejection fraction 55%, mild to moderate mitral regu rgitation, normally functioning prosthetic aortic valve with a mean gradient across the valve of 21 mmHg, mild to moderate tricuspid regurgitation and mild aortic regurgitation noted. Most recent stress test performed in the office in 2018 with a Lexiscan stress test that was negative for stress-induced ischemia. 02/14 Patient seen and examined. Patient admits his SOB is much improved from when he came in. He has been receivied IV Lasix 40mg IV bid. His Cr increased from 2.4 up to 3.18 today. Currently resting with his BIPAP on, lying flat in bed. Admits to chronic LE edema, usually worse at the end of the day similar to what he has now for years. 02/15 Patient seen and examined. Patient remains on BiPAP and states he is feeling better day by day. He does have a left anterior montejo nonhealing ulcer since December and also has a right dorsal foot approximately 2 cm ulceration which has been there for approximately a month which she believes may be related to frostbite. He denies any chest pain or pressure. His Lasix was decreased to 40 mg IV daily. His creatinine today is 2.77, improved from yesterday at 3.18. Heart rates 90s to low 100s. He has been on Toprol 50 mg twice a day. 02/16 Patient seen and examined. Patient states he felt better yesterday however this morning had increased shortness of breath and coughing. He admits his orthopnea is somewhat improving as initially he was unable to sit back in bed and now he was able to lie at a 30 angle. He admits yesterday he felt like he was urinating more however this morning does not feel like he has been urinating as much with the Lasix. No chest pain or pressure. REVIEW OF SYSTEMS At the time of my exam: CONSTITUTIONAL: Denies fever or chills. CARDIOVASCULAR: Denies chest pain, shortness of breath, orthopnea, PND or palpitations. RESPIRATORY: Denies cough. GASTROINTESTINAL: Denies abdominal pain, diarrhea, constipation, nausea or vomiting. MUSCULOSKELETAL: Denies myalgias. NEUROLOGIC: Denies numbness, tingling, headacbe or weakness. ENDOCRINE: Denies fatigue, weight change, polydipsia or polyurina. GENITOURINARY: Denies burning, hematuria or urgency with micturation. HEMATOLOGIC: Denies history of anemia or bleeding. PHYSICAL EXAMINATION Vitals reviewed CONSTITUTIONAL: No apparent distress. HEENT: Head is normocephalic. Pupils are equal, round. Sclerae anicteric. Mucous membranes of the mouth are moist. No JVD. No carotid bruit. CHEST EXAMINATION: Bibasilar coarse rales, scattered rhonchi, no wheezes. No chest wall tenderness is noted on palpation or with deep breathing. HEART EXAMINATION: Irregular rate and rhythm. S1, S2 heard. Systolic ejection murmur at the base, no gallops or rub. ABDOMEN: Soft, nontender. Positive bowel sounds. EXTREMITIES: 2+ peripheral pulses, 2+ bilateral lower extremity pitting edema and no calf tenderness. +right foot and left anterior montejo ulcers NEUROLOGIC EXAMINATION: Patient is awake, alert and oriented x3. ASSESSMENT Paroxysmal atrial fibrillation with rapid ventricular rate Acute on chronic diastolic heart failure Hypoxia Troponin leak, likely related to renal function. This flat appearance with no significant rise and fall pattern suggestive of myocardial injury. Valvular heart disease status post tissue aortic valve replacement 2014 Chronic kidney disease Hypertension Diabetes mellitus with hypoglycemia on admission Dyslipidemia MARIANA, improved, at baseline Mild pauses up to 2.4 seconds while sleeping when in Afib, asymptomatic Severe pulmonary hypertension with RSVP 76 Chronic LE edema, may be a component of chronic venous insufficiency Bilateral nonhealing left foot and right montejo ulcers PLAN Continue Eliquis 5mg bid Echo with preserved EF, mild gradient across valve and moderate to severe TR, moderate MR severe pulmonary hypertension. Nephro recommendations appreciated. Continue Cardizem, Metoprolol, better rate controlled. Patient placed back on Lasix 40mg IV bid and we will monitor response. Objective - Vital Signs Vital signs: Vital Signs Temp 98.4 F 02/16/21 12:00 Pulse 112 H 02/16/21 12:12 Resp 20 02/16/21 12:00 BP 123/84 02/16/21 12:00 Pulse Ox 94 L 02/16/21 12:00 Intake & Output 02/15/21 02/16/21 02/16/21 18:59 06:59 18:59 Intake Total 480 118 Output Total 1000 1500 475 Balance -520 -1500 -357 Weight 66.5 kg Intake: Oral 480 118 Output: Urine 1000 900 475 Stool 600 Other: Voiding Method Urinal Urinal # Voids 2 # Bowel Movements 1 - Labs CBC & Chem 7: 02/16/21 11:31 02/16/21 11:31 Labs: Abnormal Lab Results - Last 24 Hours (Table) 02/15/21 02/15/21 02/15/21 Range/Units 08:27 17:13 19:47 WBC (3.8-10.6) k/uL Hgb (13.0-17.5) gm/dL RDW (11.5-15.5) % Neutrophils # (1.3-7.7) k/uL Lymphocytes # (1.0-4.8) k/uL Sodium (137-145) mmol/L BUN (9-20) mg/dL Creatinine (0.66-1.25) mg/dL Glucose (74-99) mg/dL POC Glucose (mg/dL) 146 H 148 H (75-99) mg/dL Total Protein (6.3-8.2) g/dL Albumin (3.5-5.0) g/dL Procalcitonin 0.41 H (0.02-0.09) ng/mL 02/16/21 02/16/21 02/16/21 Range/Units 11:31 11:31 12:15 WBC 10.7 H (3.8-10.6) k/uL Hgb 12.6 L (13.0-17.5) gm/dL RDW 16.1 H (11.5-15.5) % Neutrophils # 9.1 H (1.3-7.7) k/uL Lymphocytes # 0.8 L (1.0-4.8) k/uL Sodium 134 L (137-145) mmol/L BUN 63 H (9-20) mg/dL Creatinine 2.24 H (0.66-1.25) mg/dL Glucose 136 H (74-99) mg/dL POC Glucose (mg/dL) 119 H (75-99) mg/dL Total Protein 5.7 L (6.3-8.2) g/dL Albumin 2.9 L (3.5-5.0) g/dL Procalcitonin (0.02-0.09) ng/mL Microbiology - Last 24 Hours (Table) 02/12/21 10:34 Blood Culture - Preliminary Blood No Growth after 96 hours 02/12/21 10:50 Blood Culture - Preliminary Blood No Growth after 96 hours
[2021-02-16 17:06] LABS: Glucose,Whole Blood 158 mg/dL (75-99)
--- NOTE | 2021-02-16 17:13 | P.PN ---
Subjective Progress Note Date: 02/16/21 Principal diagnosis: Acute hypoxic respiratory failure secondary to acute community-acquired right lower lobe pneumonia and underlying COPD with acute exacerbation. 70-year-old male, seen by Dr. Medina and our office on February 12. The patient was very short of breath at that time, and quite hypoxemic, and he was sent to the emergency department for further evaluation. Currently, he is on nasal cannula at 6 L/m, saline at 20 mL an hour, and a Cardizem drip at 15 mg an hour. The patient apparently complained in the ER, that he is having difficulty breathing for several months prior to admission. Over the last few days, she got worse. He denied any chest pain or fever. He did have some lower extremity edema. He has a history of angina, CVA, diabetes, hyperlipidemia, hypertension, myocardial infarction, sleep apnea syndrome, hypothyroidism, aortic stenosis, status post aortic valve replacement, and bowel resection for colon cancer. White count 9.6, he will 14.1, hematocrit 43.4, and platelet count 291,000. PT 12.5 INR 1.2. Sodium 138, potassium 4.3, chlorides 105, CO2 21, anion gap 12, BUN 58, creatinine 2.39. Troponin was 0.049, and N-terminal proBNP was 5770. Chest x-ray was consistent with right lower lobe infiltrate/pneumonia. Patient was reevaluated today on 02/14/2021, patient is feeling better today compared to how he felt yesterday. Remains on antibiotics, bronchodilators, and he remains on bronchodilators, patient was earlier on nasal cannula, however later this afternoon he was transitioned to BiPAP because of low O2 saturations. Placed on BiPAP, his O2 saturation went up to 95%, presently on 50% 10/01. His electrodes are normal renal profile is poor with BUN of 70 creatinine 3.18. WBC count is 10.1 hemoglobin is 15.7. Patient had negative coronarvirus PCR. BNP was elevated at 5770, considering his cardiac history the patient may have a component of congestive heart failure, however chest x-ray is mostly suggestive of right lower lobe pneumonia and possibly some pleural effusion/small. Agent was seen by cardiology, and it was felt that the patient may have acute on chronic diastolic congestive heart failure and he had a troponin leak related to his renal functioning. Patient does have history of valvular heart disease and he is status post aortic valve replacement in 2015. Patient is also known to have history of severe pulmonary hypertension with right-sided pressures of 76 Patient was reevaluated today on 02/15/2021, patient is feeling better, breathing a bit easier, remains on antibiotics, bronchodilators, and diuretics. Today I even increased the dose of his diuretics, patient is on 10 L high flow nasal cannula, yesterday he was on BiPAP. Patient tells me that his feeling much better. However on physical examination continues to have significant crackles bilaterally. His BNP level was elevated, hence I recommended that we continue diuretics, and the dose was increased. Patient remains on Eliquis, remains on Zithromax and Rocephin, is also on diltiazem. I increased the dose of Lasix to 40 mg IV push twice a day. He is on 10 L high flow cannula. Patient was reevaluated today on 02/16/2021, he is basically the same today as he was yesterday, get short of breath with activity. He feels intermittently congested. Remains on antibiotics, bronchodilators and diuretics. When I saw the patient today he was on BiPAP, with IPAP of 12 EPAP of 6, he normally wears CPAP at home, and his FiO2 was 50%. Patient is saturating in the low 90s, 94%, he is hemodynamically stable, he is afebrile. Her on physical examination continues to have significant crackles and rhonchi bilaterally, will recommend follow-up chest x-ray on this patient tomorrow. Renal profile seems to be improving in spite of diuretics, creatinine is 2.4. Objective - Vital Signs Vital signs: Vital Signs Temp 98.2 F 02/16/21 16:39 Pulse 99 02/16/21 16:39 Resp 20 02/16/21 16:39 BP 122/73 02/16/21 16:39 Pulse Ox 94 L 02/16/21 16:39 Intake & Output 02/15/21 02/16/21 02/16/21 18:59 06:59 18:59 Intake Total 480 458 Output Total 1000 1500 675 Balance -520 -1500 -476 Weight 66.5 kg Intake: Intake, IV Titration 100 Amount cefTRIAXone 1 gm In 100 Sodium Chloride 0.9% 50 ml @ 100 mls/hr IVPB Q24HR [facility] Rx#:[id number] Oral 480 358 Output: Urine 1000 900 675 Stool 600 Other: Voiding Method Urinal Urinal # Voids 2 # Bowel Movements 1 - Exam Physical Exam revealed 70-year-old white male in no distress. On BiPAP. Head: Atraumatic, normocephalic. HEENT:[Neck is supple.] [No neck masses.] [No thyromegaly.] [No JVD.] Chest: [Symmetrical chest expansion, bibasilar coarse rales and rhonchi noted. Cardiac Exam: [Irregular rhythm. Normal S1 and S2, no S3 gallop, 2/6 systolic murmur thought the precordium. Abdomen: [Soft, nontender, no megaly, no rebound, no guarding, normal bowel sounds.] Extremities: [No clubbing, no edema, no cyanosis.] Good pulses bilaterally. Neurological Exam: [No focal neurologic deficit.] Alert and oriented 3. Psychiatric: Normal mood, affect and normal mental status examination. Extremities: 1+ bipedal edema no tenderness. Musculoskeletal: No deformities noted limitation in range of motion. - Labs CBC & Chem 7: 02/16/21 11:31 02/16/21 11:31 Labs: Abnormal Lab Results - Last 24 Hours (Table) 02/15/21 02/15/21 02/15/21 Range/Units 08:27 17:13 19:47 WBC (3.8-10.6) k/uL Hgb (13.0-17.5) gm/dL RDW (11.5-15.5) % Neutrophils # (1.3-7.7) k/uL Lymphocytes # (1.0-4.8) k/uL Sodium (137-145) mmol/L BUN (9-20) mg/dL Creatinine (0.66-1.25) mg/dL Glucose (74-99) mg/dL POC Glucose (mg/dL) 146 H 148 H (75-99) mg/dL Total Protein (6.3-8.2) g/dL Albumin (3.5-5.0) g/dL Procalcitonin 0.41 H (0.02-0.09) ng/mL 02/16/21 02/16/21 02/16/21 Range/Units 11:31 11:31 12:15 WBC 10.7 H (3.8-10.6) k/uL Hgb 12.6 L (13.0-17.5) gm/dL RDW 16.1 H (11.5-15.5) % Neutrophils # 9.1 H (1.3-7.7) k/uL Lymphocytes # 0.8 L (1.0-4.8) k/uL Sodium 134 L (137-145) mmol/L BUN 63 H (9-20) mg/dL Creatinine 2.24 H (0.66-1.25) mg/dL Glucose 136 H (74-99) mg/dL POC Glucose (mg/dL) 119 H (75-99) mg/dL Total Protein 5.7 L (6.3-8.2) g/dL Albumin 2.9 L (3.5-5.0) g/dL Procalcitonin (0.02-0.09) ng/mL 02/16/21 Range/Units 17:04 WBC (3.8-10.6) k/uL Hgb (13.0-17.5) gm/dL RDW (11.5-15.5) % Neutrophils # (1.3-7.7) k/uL Lymphocytes # (1.0-4.8) k/uL Sodium (137-145) mmol/L BUN (9-20) mg/dL Creatinine (0.66-1.25) mg/dL Glucose (74-99) mg/dL POC Glucose (mg/dL) 158 H (75-99) mg/dL Total Protein (6.3-8.2) g/dL Albumin (3.5-5.0) g/dL Procalcitonin (0.02-0.09) ng/mL Microbiology - Last 24 Hours (Table) 02/12/21 10:34 Blood Culture - Preliminary Blood No Growth after 96 hours 02/12/21 10:50 Blood Culture - Preliminary Blood No Growth after 96 hours Assessment and Plan Assessment: Impression: Acute on chronic hypoxic respiratory failure secondary to right lower lobe pneumonia/community-acquired. Suspect acute on chronic diastolic congestive heart failure. History of underlying COPD with mild exacerbation. Acute. Valvular heart disease and previous aortic valve replacement in 2014. Chronic kidney disease. Severe pulmonary hypertension. Type 2 diabetes. Dyslipidemia. Benign essential hypertension. Chronic cor pulmonale. History of obstructive sleep apnea syndrome uses CPAP. History of bowel resection for cancer. And previous ileostomy. History of CVA. New onset Atrial fibrillation with RVR could be treated by his underlying pneumonia, could also be paroxysmal atrial fibrillation. Recommendation: Follow-up chest x-ray in a.m. Continue Lasix and antibiotics. Rocephin and Zithromax Continue present supportive care measures. Continue oxygen. Continue bronchodilators. Continue GI prophylaxis. Monitor daily electrolytes and renal profile. Continue insulin. Continue Eliquis. Use BiPAP as needed. We'll continue to follow. Time with Patient: Less than 30
--- NOTE | 2021-02-16 19:07 | PN ---
PROGRESS NOTE Patient is seen for followup for acute kidney injury, mostly cardiorenal. Renal function is improving, with creatinine down to 2.2 from peak of 3.1 mg/dL. PHYSICAL EXAMINATION: On examination today, patient is maintained on BiPAP. He is awake, comfortable. He is not in any acute distress. Blood pressure is 122/73, heart rate 99 per minute. He is afebrile. EXAMINATION OF THE HEART: S1 and S2. EXAMINATION OF LUNGS: Bilateral breath sounds are heard. ABDOMEN: Soft, obese. Examination of lower extremities shows edema 1+ bilaterally. [employer] exam is grossly intact. LABS: Sodium 134, potassium 4.2, chloride 102, BUN 63, creatinine 2.24, hemoglobin 12.6 g/dL. ASSESSMENT: 1. Acute kidney injury, cardiorenal, currently improving. Continue with current dose of IV Lasix. 2. Congestive heart failure, acute on top of chronic, mostly diastolic, with ejection fraction 55% to 60%. 3. Severely dilated left atrium and right ventricle with severe pulmonary hypertension. 4. Chronic kidney disease, stage IV. Baseline creatinine about 2 mg/dL secondary to diabetic kidney disease. PLAN: Continue with the Lasix. Check a chest x-ray if not done recently. Repeat labs in a.m. MMODL / IJN: [id number] /
[2021-02-16 20:36] LABS: Glucose,Whole Blood 254 mg/dL (75-99)
[2021-02-16] MEDS: AZITHROMYCIN 500 MG TAB PO SCH (20:48)
[2021-02-16] MEDS: LATANOPROST 0.005% OPHTH DROPS 2.5 ML BTL BOTH EYES SCH (20:49)
[2021-02-17 06:36] LABS: Glucose,Whole Blood 124 mg/dL (75-99)
[2021-02-17] MEDS: INSULIN ASPART (NovoLOG) 100 UNIT/ML VIAL SQ SCH ×4 (06:38→20:13)
[2021-02-17] MEDS: PANTOPRAZOLE 40 MG TABLET PO SCH (06:38)
--- NOTE | 2021-02-17 07:34 | XR ---
EXAMINATION TYPE: XR chest 1V portable DATE OF EXAM: 02/17/2021 COMPARISON: Chest x-ray 02/12/2021 HISTORY: Congestive heart failure, pneumonia TECHNIQUE: Single frontal view of the chest is obtained. FINDINGS: There is some improvement in aeration, volume status suspected. Perihilar vascular indisti nctness is improved. Cardiac mediastinal silhouette shows a similar appearance, heart is enlarged. Pa tient is post median sternotomy. There is no evident pneumothorax. Patchy basilar density persists. IMPRESSION: Improvement in patient's volume status, aeration within the lungs.
[2021-02-17] MEDS: FUROSEMIDE 10 MG/ML 4 ML VIAL IV SCH (08:29)
[2021-02-17] MEDS: DILTIAZEM ORAL 30 MG TAB PO SCH ×4 (08:29→20:13)
[2021-02-17] MEDS: ATORVASTATIN 10 MG TAB PO SCH (08:29)
[2021-02-17] MEDS: FENOFIBRATE 160 MG TAB PO SCH (08:29)
[2021-02-17] MEDS: METOPROLOL SUCCINATE (ER) 50 MG TAB.ER.24H PO SCH ×2 (08:29→20:13)
[2021-02-17] MEDS: APIXABAN 5 MG TAB PO SCH ×2 (08:29→20:13)
[2021-02-17] MEDS: INSULIN DETEMIR (LEVEMIR) 100 UNIT/ML SYR SQ SCH (08:29)
[2021-02-17] MEDS: FEBUXOSTAT 80 MG PO SCH (08:37)
[2021-02-17 09:16] LABS: Basophils # (A) 0.1 k/uL (0-0.2); Basophils % (A) 1 %; Eosinophils # (A) 0.2 k/uL (0-0.7); Eosinophils % (A) 2 %; HCT 39.3 % (39.0-53.0); HGB 12.6 gm/dL (13.0-17.5); Lymphocytes # (A) 0.8 k/uL (1.0-4.8); Lymphocytes % (A) 8 %; MCH 28.5 pg (25.0-35.0); MCV 88.9 fL (80.0-100.0); Mean Platelet Volume 7.4; Monocytes # (A) 0.8 k/uL (0-1.0); Monocytes % (A) 8 %; Neutrophils % (A) 81 %; Platelet Count 210 k/uL (150-450); RBC 4.42 m/uL (4.30-5.90); RDW 15.9 % (11.5-15.5); WBC 9.9 k/uL (3.8-10.6)
[2021-02-17 09:27] LABS: Calcium 8.8 mg/dL (8.4-10.2); Total Bilirubin 0.6 mg/dL (0.2-1.3); Total Protein 5.7 g/dL (6.3-8.2)
--- NOTE | 2021-02-17 10:03 | P.PN ---
Subjective Progress Note Date: 02/17/21 Faisal Andrade, is a 70-year-old male who presented to [facility] emergency room with a chief complaint of worsening shortness of breath over several weeks and cough and chest congestion, he was evaluated in the emergency room vital examination on presentation revealed a temperature of 96.7 also 130 respiration 26 blood pressure 142/87 pulse ox 96% on 3 L nasal cannula white blood count was 9.6 hemoglobin 14.1 platelet count 291 sodium 140 potassium 4.7 chloride 110 CO2 20 BUN 58 creatinine 2.4 troponin level was 0.044 BNP was elevated at 5717 Gu virus PCR was negative. Chest x-ray done in the emergency room revealed right lower lobe infiltrate suggestive of pneumonia, EKG revealed evidence of atrial fibrillation with rapid ventricular response. Patient was admitted to telemetry floor, he was started on IV antibiotics ceftriaxone and Zithromax, he was started on Cardizem drip, and IV Lasix, cardiology consultation and pulmonary consultation were requested. On 02/13/2021 patient was seen and examined on the medical floor, he is alert and oriented 3 in no apparent distress he is still complaining of shortness of breath however he noticed some improvement since yesterday he also had some occasional cough otherwise he denies any complaints there is no fever or chills no headache or dizziness no chest pain no nausea or vomiting no abdominal pain no diarrhea no blood in the stools no burning with urination no frequency or urgency and no hematuria he is maintained on IV Lasix his creatinine is going up chronic kidney disease will add a consult for nephrology at this time On 02/14/2021 patient currently resting on BiPAP. Patient does wake up quickly falls back to sleep. Per nursing staff patient remained short of breath with minimal activity. Patient remains on IV Lasix. IV Lasix have been decreased to 2 acute kidney injury. Cardiology, pulmonary and nephrology services are following. Ultrasound kidneys has been ordered per nephrology. At this time patient denies nausea vomiting or diarrhea. Patient denies any urinary burning or frequency On 02/15/2021 patient currently resting on BiPAP. Patient does wake up quickly falls back to sleep. Per nursing staff patient remained short of breath with minimal activity. he is still complaining of shortness of breath however he noticed some improvement since yesterday he also had some occasional cough otherwise he denies any complaints there is no fever or chills no headache or dizziness no chest pain no nausea or vomiting no abdominal pain no diarrhea no blood in the stools no burning with urination no frequency or urgency and no hematuria he is maintained on IV Lasix his creatinine is going up chronic kidney disease will add a consult for nephrology at this time. Patient remains on IV L asix. IV Lasix have been decreased to 2 acute kidney injury. Cardiology, pulmonary and nephrology services are following. Ultrasound kidneys has been ordered per nephrology. At this time patient denies nausea vomiting or diarrhea. Patient denies any urinary burning or frequency On 02/16/2021 patient currently resting on BiPAP. Patient does wake up was able to keep breakfast. Patient maintained on IV Lasix 40 mg twice a day. Ultrasound of kidneys completed showing findings suggestive of medical renal disease. Repeat labs have been ordered. Patient denies chest pain. Patient denies nausea vomiting or diarrhea. Patient denies any urinary burning or frequency. Cardiology, pulmonary and nephrology services are following On 02/17/2021 patient's alert and oriented 3. Patient currently resting on BiPAP. Patient reports he is starting to feel better. Creatinine and bun trending down. Patient does report some shortness breath but does state this is improved. Patient denies chest pain. Patient denies nausea vomiting or diarrhea. Patient denies any urinary burning or frequency. Patient remains on azithromycin and Rocephin for IV antibiotics. IV Lasix 40 mg every 12 hours. Cardiology, pulmonary and nephrology following Objective - Vital Signs Vital signs: Vital Signs Temp 98.5 F 02/17/21 08:27 Pulse 112 H 02/17/21 08:27 Resp 20 02/17/21 08:27 BP 130/81 02/17/21 08:27 Pulse Ox 91 L 02/17/21 08:27 Intake & Output 02/16/21 02/17/21 02/17/21 18:59 06:59 18:59 Intake Total 698 780 Output Total 1075 500 825 Balance -377 -500 -45 Weight 64.5 kg Intake: Intake, IV Titration 100 Amount cefTRIAXone 1 gm In 100 Sodium Chloride 0.9% 50 ml @ 100 mls/hr IVPB Q24HR [facility] Rx#:[id number] Oral 598 780 Output: Urine 1075 300 475 Stool 200 350 Other: Voiding Method Urinal Urinal # Bowel Movements 1 - Exam In general patient is alert and oriented 3 in no apparent distress HEENT head normocephalic and atraumatic Neck is supple no JVD no goiter no lymphadenopathy Chest exam reveals crackles in both lung zhang no wheezing Cardiac exam reveals irregular heart sounds with tachycardia no murmurs Abdomen is soft nontender no organomegaly with normal bowel sounds Extremity exam reveals 1+ edema, there is a large scabbed ulcer on the left pretibial area with mild surrounding erythema Neurological examination reveals no gross focal deficit - Labs CBC & Chem 7: 02/17/21 08:53 02/17/21 08:53 Labs: Abnormal Lab Results - Last 24 Hours (Table) 02/16/21 02/16/21 02/16/21 Range/Units 11:31 11:31 12:15 WBC 10.7 H (3.8-10.6) k/uL Hgb 12.6 L (13.0-17.5) gm/dL RDW 16.1 H (11.5-15.5) % Neutrophils # 9.1 H (1.3-7.7) k/uL Lymphocytes # 0.8 L (1.0-4.8) k/uL Sodium 134 L (137-145) mmol/L BUN 63 H (9-20) mg/dL Creatinine 2.24 H (0.66-1.25) mg/dL Glucose 136 H (74-99) mg/dL POC Glucose (mg/dL) 119 H (75-99) mg/dL Total Protein 5.7 L (6.3-8.2) g/dL Albumin 2.9 L (3.5-5.0) g/dL 02/16/21 02/16/21 02/17/21 Range/Units 17:04 20:26 06:33 WBC (3.8-10.6) k/uL Hgb (13.0-17.5) gm/dL RDW (11.5-15.5) % Neutrophils # (1.3-7.7) k/uL Lymphocytes # (1.0-4.8) k/uL Sodium (137-145) mmol/L BUN (9-20) mg/dL Creatinine (0.66-1.25) mg/dL Glucose (74-99) mg/dL POC Glucose (mg/dL) 158 H 254 H 124 H (75-99) mg/dL Total Protein (6.3-8.2) g/dL Albumin (3.5-5.0) g/dL 02/17/21 02/17/21 Range/Units 08:53 08:53 WBC (3.8-10.6) k/uL Hgb 12.6 L (13.0-17.5) gm/dL RDW 15.9 H (11.5-15.5) % Neutrophils # 8.0 H (1.3-7.7) k/uL Lymphocytes # 0.8 L (1.0-4.8) k/uL Sodium (137-145) mmol/L BUN 62 H (9-20) mg/dL Creatinine 2.12 H (0.66-1.25) mg/dL Glucose 171 H (74-99) mg/dL POC Glucose (mg/dL) (75-99) mg/dL Total Protein 5.7 L (6.3-8.2) g/dL Albumin 3.0 L (3.5-5.0) g/dL Microbiology - Last 24 Hours (Table) 02/12/21 10:34 Blood Culture - Preliminary Blood No Growth after 96 hours 02/12/21 10:50 Blood Culture - Preliminary Blood No Growth after 96 hours Assessment and Plan Plan: Acute pneumonia patient was started on IV Rocephin and IV Zithromax. Pulmonary services are following Atrial fibrillation with rapid ventricular response. Patient remains on eliquis for anticoagulation. Senia mendenhall DC'keerthi. Cardiology services are following Acute congestive heart failure exacerbation with check echocardiogram cardiology consultation requested. Patient remains on IV Lasix Underlying history of hypertension Underlying history of COPD Underlying history of coronary artery disease Underlying history of hyperlipidemia Underlying history of gout Acute kidney injury. Creatinine up to 3.16. Nephrology services are consulted. Ultrasound of kidneys completed showing findings suggestive of medical renal disease. DVT prophylaxis eliquis. GI prophylaxis Protonix Patient remains on IV Rocephin and Zithromax Cardiology, pulmonary and nephrology services are following Remains on IV Lasix
[2021-02-17 11:47] LABS: Glucose,Whole Blood 171 mg/dL (75-99)
[2021-02-17] MEDS: HYDROcodone/APAP 10-325MG 1 EACH TAB PO PRN ×2 (12:21→20:13)
--- NOTE | 2021-02-17 14:27 | P.PN ---
Subjective Progress Note Date: 02/17/21 Principal diagnosis: This 70-year-old male seen in consultation because of acute kidney injury secondary to cardiorenal syndrome, chronic kidney disease stage IV, congestive heart failure. Is known with COPD and uses CPAP at home Currently he is on BiPAP.. Feels much better. Occasionally feels dizzy when he stands up. Does have mild cough Good appetite no nausea vomiting diarrhea Vital signs are stable Urine output is 2025 this morning 1100 for the last 24 hours. Objective - Vital Signs Vital signs: Vital Signs Temp 98.4 F 02/17/21 12:15 Pulse 90 02/17/21 12:15 Resp 20 02/17/21 12:15 BP 135/80 02/17/21 12:15 Pulse Ox 92 L 02/17/21 12:15 Intake & Output 02/16/21 02/17/21 02/17/21 18:59 06:59 18:59 Intake Total 698 780 Output Total 1484 470 7049 Balance -377 -016 -1245 Weight 64.5 kg Intake: Intake, IV Titration 100 Amount cefTRIAXone 1 gm In 100 Sodium Chloride 0.9% 50 ml @ 100 mls/hr IVPB Q24HR [facility] Rx#:[id number] Oral 598 780 Output: Urine 4117 378 8544 Stool 200 650 Other: Voiding Method Urinal Urinal # Bowel Movements 1 On examination currently his on's BiPAP. HEENT exam no JVP neck is supple no facial asymmetry Lungs are significant for occasional coarse crackle on the right base Good air entry bilaterally Heart sounds unremarkable for any murmur or gallop gallop Abdomen soft nontender Extremity exam was minimal edema Neurologically awake alert oriented but generalized weakness - Labs CBC & Chem 7: 02/17/21 08:53 02/17/21 08:53 Labs: Abnormal Lab Results - Last 24 Hours (Table) 02/16/21 02/16/21 02/17/21 Range/Units 17:04 20:26 06:33 Hgb (13.0-17.5) gm/dL RDW (11.5-15.5) % Neutrophils # (1.3-7.7) k/uL Lymphocytes # (1.0-4.8) k/uL BUN (9-20) mg/dL Creatinine (0.66-1.25) mg/dL Glucose (74-99) mg/dL POC Glucose (mg/dL) 158 H 254 H 124 H (75-99) mg/dL Total Protein (6.3-8.2) g/dL Albumin (3.5-5.0) g/dL 02/17/21 02/17/21 02/17/21 Range/Units 08:53 08:53 11:42 Hgb 12.6 L (13.0-17.5) gm/dL RDW 15.9 H (11.5-15.5) % Neutrophils # 8.0 H (1.3-7.7) k/uL Lymphocytes # 0.8 L (1.0-4.8) k/uL BUN 62 H (9-20) mg/dL Creatinine 2.12 H (0.66-1.25) mg/dL Glucose 171 H (74-99) mg/dL POC Glucose (mg/dL) 171 H (75-99) mg/dL Total Protein 5.7 L (6.3-8.2) g/dL Albumin 3.0 L (3.5-5.0) g/dL Microbiology - Last 24 Hours (Table) 02/12/21 10:34 Blood Culture - Preliminary Blood No Growth after 120 hours 02/12/21 10:50 Blood Culture - Preliminary Blood No Growth after 120 hours Assessment and Plan Assessment: Impression 1. Cardiorenal syndrome with acute kidney injury responding to Lasix 40 every 12 with good urine output and improving in creatinine and 2. Chronic kidney disease, stage IV nephrosclerosis with GFR around 28-33 in 2019 and more recently his and 29 dated 03/11/2019. 3. COPD on CPAP. 4. History of coronary artery disease. Recommendation . 1. Continue diuresis and see how he does 2 Necessary we'll check a orthostatic changes. 3. 3. Monitor labs
[2021-02-17 16:48] LABS: Glucose,Whole Blood 170 mg/dL (75-99)
--- NOTE | 2021-02-17 17:11 | P.PN ---
Subjective Progress Note Date: 02/17/21 Principal diagnosis: Acute hypoxic respiratory failure secondary to acute community-acquired right lower lobe pneumonia and underlying COPD with acute exacerbation. 70-year-old male, seen by Dr. Medina and our office on February 12. The patient was very short of breath at that time, and quite hypoxemic, and he was sent to the emergency department for further evaluation. Currently, he is on nasal cannula at 6 L/m, saline at 20 mL an hour, and a Cardizem drip at 15 mg an hour. The patient apparently complained in the ER, that he is having difficulty breathing for several months prior to admission. Over the last few days, she got worse. He denied any chest pain or fever. He did have some lower extremity edema. He has a history of angina, CVA, diabetes, hyperlipidemia, hypertension, myocardial infarction, sleep apnea syndrome, hypothyroidism, aortic stenosis, status post aortic valve replacement, and bowel resection for colon cancer. White count 9.6, he will 14.1, hematocrit 43.4, and platelet count 291,000. PT 12.5 INR 1.2. Sodium 138, potassium 4.3, chlorides 105, CO2 21, anion gap 12, BUN 58, creatinine 2.39. Troponin was 0.049, and N-terminal proBNP was 5770. Chest x-ray was consistent with right lower lobe infiltrate/pneumonia. Patient was reevaluated today on 02/14/2021, patient is feeling better today compared to how he felt yesterday. Remains on antibiotics, bronchodilators, and he remains on bronchodilators, patient was earlier on nasal cannula, however later this afternoon he was transitioned to BiPAP because of low O2 saturations. Placed on BiPAP, his O2 saturation went up to 95%, presently on 50% 10/01. His electrodes are normal renal profile is poor with BUN of 70 creatinine 3.18. WBC count is 10.1 hemoglobin is 15.7. Patient had negative coronarvirus PCR. BNP was elevated at 5770, considering his cardiac history the patient may have a component of congestive heart failure, however chest x-ray is mostly suggestive of right lower lobe pneumonia and possibly some pleural effusion/small. Agent was seen by cardiology, and it was felt that the patient may have acute on chronic diastolic congestive heart failure and he had a troponin leak related to his renal functioning. Patient does have history of valvular heart disease and he is status post aortic valve replacement in 2015. Patient is also known to have history of severe pulmonary hypertension with right-sided pressures of 76 Patient was reevaluated today on 02/15/2021, patient is feeling better, breathing a bit easier, remains on antibiotics, bronchodilators, and diuretics. Today I even increased the dose of his diuretics, patient is on 10 L high flow nasal cannula, yesterday he was on BiPAP. Patient tells me that his feeling much better. However on physical examination continues to have significant crackles bilaterally. His BNP level was elevated, hence I recommended that we continue diuretics, and the dose was increased. Patient remains on Eliquis, remains on Zithromax and Rocephin, is also on diltiazem. I increased the dose of Lasix to 40 mg IV push twice a day. He is on 10 L high flow cannula. Patient was reevaluated today on 02/16/2021, he is basically the same today as he was yesterday, get short of breath with activity. He feels intermittently congested. Remains on antibiotics, bronchodilators and diuretics. When I saw the patient today he was on BiPAP, with IPAP of 12 EPAP of 6, he normally wears CPAP at home, and his FiO2 was 50%. Patient is saturating in the low 90s, 94%, he is hemodynamically stable, he is afebrile. Her on physical examination continues to have significant crackles and rhonchi bilaterally, will recommend follow-up chest x-ray on this patient tomorrow. Renal profile seems to be improving in spite of diuretics, creatinine is 2.4. Patient was reevaluated today on 02/17/2021, patient is feeling better, breathing easier, chest x-ray is looking a lot better. Patient remains on bronchodilators, antibiotics, and diuretics, chest x-ray is significantly improved. Clinically the patient is feeling better. However he remains on 10 L high flow cannula, O2 sats is 92%. Blood pressure is 115/58. Patient is afebrile. CBC is relatively normal, electrolytes are normal BUN is 62 creatinine 2.12, steadily improving since admission patient had a creatinine as high as 3.18 a few days ago. Remains on Lasix at 40 mg IV push every 12 hours. Remains empirically on antibiotics and on bronchodilators Objective - Vital Signs Vital signs: Vital Signs Temp 98.4 F 02/17/21 16:22 Pulse 103 H 02/17/21 16:22 Resp 20 02/17/21 16:22 BP 115/58 02/17/21 16:22 Pulse Ox 92 L 02/17/21 16:22 Intake & Output 02/16/21 02/17/21 02/17/21 18:59 06:59 18:59 Intake Total 698 780 Output Total 1867 712 0327 Balance -377 500 -1579 Weight 64.5 kg Intake: Intake, IV Titration 100 Amount cefTRIAXone 1 gm In 100 Sodium Chloride 0.9% 50 ml @ 100 mls/hr IVPB Q24HR [facility] Rx#:[id number] Oral 598 780 Output: Urine 0983 592 0960 Stool 200 800 Other: Voiding Method Urinal Urinal # Bowel Movements 1 - Exam Physical Exam revealed 70-year-old white male in no distress. Liters high flow nasal cannula. Head: Atraumatic, normocephalic. HEENT:[Neck is supple.] [No neck masses.] [No thyromegaly.] [No JVD.] Chest: [Symmetrical chest expansion, records persist bilaterally and rhonchi persists. Cardiac Exam: [Irregular rhythm. Normal S1 and S2, no S3 gallop, 2/6 systolic murmur thought the precordium. Abdomen: [Soft, nontender, no megaly, no rebound, no guarding, normal bowel sounds.] Extremities: [No clubbing, no edema, no cyanosis.] Good pulses bilaterally. Neurological Exam: [No focal neurologic deficit.] Alert and oriented 3. Psychiatric: Normal mood, affect and normal mental status examination. Extremities: 1+ bipedal edema no tenderness. Musculoskeletal: No deformities noted limitation in range of motion. - Labs CBC & Chem 7: 02/17/21 08:53 02/17/21 08:53 Labs: Abnormal Lab Results - Last 24 Hours (Table) 02/16/21 02/17/21 02/17/21 Range/Units 20:26 06:33 08:53 Hgb 12.6 L (13.0-17.5) gm/dL RDW 15.9 H (11.5-15.5) % Neutrophils # 8.0 H (1.3-7.7) k/uL Lymphocytes # 0.8 L (1.0-4.8) k/uL BUN (9-20) mg/dL Creatinine (0.66-1.25) mg/dL Glucose (74-99) mg/dL POC Glucose (mg/dL) 254 H 124 H (75-99) mg/dL Total Protein (6.3-8.2) g/dL Albumin (3.5-5.0) g/dL 02/17/21 02/17/21 02/17/21 Range/Units 08:53 11:42 16:40 Hgb (13.0-17.5) gm/dL RDW (11.5-15.5) % Neutrophils # (1.3-7.7) k/uL Lymphocytes # (1.0-4.8) k/uL BUN 62 H (9-20) mg/dL Creatinine 2.12 H (0.66-1.25) mg/dL Glucose 171 H (74-99) mg/dL POC Glucose (mg/dL) 171 H 170 H (75-99) mg/dL Total Protein 5.7 L (6.3-8.2) g/dL Albumin 3.0 L (3.5-5.0) g/dL Microbiology - Last 24 Hours (Table) 02/12/21 10:34 Blood Culture - Preliminary Blood No Growth after 120 hours 02/12/21 10:50 Blood Culture - Preliminary Blood No Growth after 120 hours Assessment and Plan Assessment: Impression: Acute on chronic hypoxic respiratory failure secondary to right lower lobe pneumonia/community-acquired. Suspect acute on chronic diastolic congestive heart failure. History of underlying COPD with mild exacerbation. Acute. Valvular heart disease and previous aortic valve replacement in 2014. Chronic kidney disease. Severe pulmonary hypertension. Type 2 diabetes. Dyslipidemia. Benign essential hypertension. Chronic cor pulmonale. History of obstructive sleep apnea syndrome uses CPAP. History of bowel resection for cancer. And previous ileostomy. History of CVA. New onset Atrial fibrillation with RVR could be treated by his underlying pneumonia, could also be paroxysmal atrial fibrillation. Recommendation: Reviewed chest x-ray, it is reassuring that the patient is improving radiographically and clinically at the same time. Continue Lasix and antibiotics. Rocephin and Zithromax Continue present supportive care measures. Continue oxygen. Continue bronchodilators. Continue GI prophylaxis. Monitor daily electrolytes and renal profile. Continue insulin. Continue Eliquis. Use BiPAP as needed. We'll continue to follow. Time with Patient: Less than 30
--- NOTE | 2021-02-17 18:11 | P.PN ---
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 He follows in the office with Dr. Bolaños. We have been asked to see in consultation for new onset atrial fibrillation. He presented to the emergency department with symptoms of shortness of breath that has been going on and getting worse for the previous couple of months. He has had increased lower extremity edema and dizziness. He denies symptoms of chest pain or palpitations. He department EKG was obtained revealing atrial fibrillation with rapid ventricular rate. He is a 30 antiplatelet coagulated on Eliquis due to history of PE and was initiated on Cardizem infusion. Chest x-ray obtained revealed right lower lung air space disease possibly atypical pulmonary edema ve rsus pneumonia. He has been started on IV antibiotics. He is also on IV diuretics. Blood sugar was low on arrival at 34. Telemetry tracings reveal ongoing atrial fibrillation with variable ventricular rates. Laboratory data reviewed, WBC 9.6, hemoglobin 14.1, platelets 291, sodium 138, potassium 4.3, creatinine 2.39, troponins 0.049 and 0.044, and T proBNP 5770. Current daily cardiac medications include Eliquis 2.5 mg twice a day, Lasix 40 mg twice a day, Toprol 50 mg twice a day, simvastatin 20 mg daily and amlodipine 5 mg daily. Most recent echocardiogram obtained in the office April 2020 revealed preserved LV systolic function with ejection fraction 55%, mild to moderate mitral regu rgitation, normally functioning prosthetic aortic valve with a mean gradient across the valve of 21 mmHg, mild to moderate tricuspid regurgitation and mild aortic regurgitation noted. Most recent stress test performed in the office in 2018 with a Lexiscan stress test that was negative for stress-induced ischemia. 02/14 Patient seen and examined. Patient admits his SOB is much improved from when he came in. He has been receivied IV Lasix 40mg IV bid. His Cr increased from 2.4 up to 3.18 today. Currently resting with his BIPAP on, lying flat in bed. Admits to chronic LE edema, usually worse at the end of the day similar to what he has now for years. 02/15 Patient seen and examined. Patient remains on BiPAP and states he is feeling better day by day. He does have a left anterior montejo nonhealing ulcer since December and also has a right dorsal foot approximately 2 cm ulceration which has been there for approximately a month which she believes may be related to frostbite. He denies any chest pain or pressure. His Lasix was decreased to 40 mg IV daily. His creatinine today is 2.77, improved from yesterday at 3.18. Heart rates 90s to low 100s. He has been on Toprol 50 mg twice a day. 02/16 Patient seen and examined. Patient states he felt better yesterday however this morning had increased shortness of breath and coughing. He admits his orthopnea is somewhat improving as initially he was unable to sit back in bed and now he was able to lie at a 30 angle. He admits yesterday he felt like he was urinating more however this morning does not feel like he has been urinating as much with the Lasix. No chest pain or pressure. 02/17 Patient seen and examined. Patient believes his respiratory status is slowly improving however still not close to back to normal. He also states his urine output has been decreasing with the Lasix and patient's ins and outs appear rela tively not neutral. He denies any chest pain or pressure. He admits his orthopnea when he came in is improved however still not able to fully lie flat. He has been using BiPAP intermittently mainly at night. REVIEW OF SYSTEMS At the time of my exam: CONSTITUTIONAL: Denies fever or chills. CARDIOVASCULAR: Denies chest pain, shortness of breath, orthopnea, PND or palpitations. RESPIRATORY: Denies cough. GASTROINTESTINAL: Denies abdominal pain, diarrhea, constipation, nausea or vomiting. MUSCULOSKELETAL: Denies myalgias. NEUROLOGIC: Denies numbness, tingling, headacbe or weakness. ENDOCRINE: Denies fatigue, weight change, polydipsia or polyurina. GENITOURINARY: Denies burning, hematuria or urgency with micturation. HEMATOLOGIC: Denies history of anemia or bleeding. PHYSICAL EXAMINATION Vitals reviewed CONSTITUTIONAL: No apparent distress. HEENT: Head is normocephalic. Pupils are equal, round. Sclerae anicteric. Mucous membranes of the mouth are moist. No JVD. No carotid bruit. CHEST EXAMINATION: Bibasilar coarse rales, scattered rhonchi, no wheezes. No chest wall tenderness is noted on palpation or with deep breathing. HEART EXAMINATION: Irregular rate and rhythm. S1, S2 heard. Systolic ejection murmur at the base, no gallops or rub. ABDOMEN: Soft, nontender. Positive bowel sounds. EXTREMITIES: 2+ peripheral pulses, 2+ bilateral lower extremity pitting edema and no calf tenderness. +right foot and left anterior montejo ulcers NEUROLOGIC EXAMINATION: Patient is awake, alert and oriented x3. ASSESSMENT Paroxysmal atrial fibrillation with rapid ventricular rate Acute on chronic diastolic heart failure Hypoxia Troponin leak, likely related to renal function. This flat appearance with no significant rise and fall pattern suggestive of myocardial injury. Valvular heart disease status post tissue aortic valve replacement 2014 Chronic kidney disease Hypertension Diabetes mellitus with hypoglycemia on admission Dyslipidemia MARIANA, improved, at baseline Mild pauses up to 2.4 seconds while sleeping when in Afib, asymptomatic Severe pulmonary hypertension with RSVP 76 Chronic LE edema, may be a component of chronic venous insufficiency Bilateral nonhealing left foot and right montejo ulcers PLAN Continue Eliquis 5mg bid Echo with preserved EF, mild gradient across valve and moderate to severe TR, moderate MR severe pulmonary hypertension. Nephro recommendations appreciated. Continue Cardizem, Metoprolol, better rate controlled. Patient's creatinine has been fairly stable and near baseline. Discussed that his urine output has been decreasing and it appears he still does have some volume on him. Therefore we will attempt to increase Lasix to 80 mg IV 3 times a day and monitor response. Monitor creatinine closely. Patients find status somewhat and vigorous however still appears to be volume overloaded and have not made much improvement with his ins and outs with current dosing. If find status still in the uterus and creatinine and vigorous, may consider right heart catheterization. Objective - Vital Signs Vital signs: Vital Signs Temp 98.4 F 02/17/21 16:22 Pulse 103 H 02/17/21 16:22 Resp 20 02/17/21 16:22 BP 115/58 02/17/21 16:22 Pulse Ox 92 L 02/17/21 16:22 Intake & Output 02/16/21 02/17/21 02/17/21 18:59 06:59 18:59 Intake Total 698 1016 Output Total 3905 570 1646 Balance -458 -376 -0935 Weight 64.5 kg Intake: Intake, IV Titration 100 Amount cefTRIAXone 1 gm In 100 Sodium Chloride 0.9% 50 ml @ 100 mls/hr IVPB Q24HR [facility] Rx#:[id number] Oral 598 1016 Output: Urine 3787 102 0769 Stool 200 800 Other: Voiding Method Urinal Urinal # Bowel Movements 1 - Labs CBC & Chem 7: 02/17/21 08:53 02/17/21 08:53 Labs: Abnormal Lab Results - Last 24 Hours (Table) 02/16/21 02/17/21 02/17/21 Range/Units 20:26 06:33 08:53 Hgb 12.6 L (13.0-17.5) gm/dL RDW 15.9 H (11.5-15.5) % Neutrophils # 8.0 H (1.3-7.7) k/uL Lymphocytes # 0.8 L (1.0-4.8) k/uL BUN (9-20) mg/dL Creatinine (0.66-1.25) mg/dL Glucose (74-99) mg/dL POC Glucose (mg/dL) 254 H 124 H (75-99) mg/dL Total Protein (6.3-8.2) g/dL Albumin (3.5-5.0) g/dL 02/17/21 02/17/21 02/17/21 Range/Units 08:53 11:42 16:40 Hgb (13.0-17.5) gm/dL RDW (11.5-15.5) % Neutrophils # (1.3-7.7) k/uL Lymphocytes # (1.0-4.8) k/uL BUN 62 H (9-20) mg/dL Creatinine 2.12 H (0.66-1.25) mg/dL Glucose 171 H (74-99) mg/dL POC Glucose (mg/dL) 171 H 170 H (75-99) mg/dL Total Protein 5.7 L (6.3-8.2) g/dL Albumin 3.0 L (3.5-5.0) g/dL Microbiology - Last 24 Hours (Table) 02/12/21 10:34 Blood Culture - Preliminary Blood No Growth after 120 hours 02/12/21 10:50 Blood Culture - Preliminary Blood No Growth after 120 hours
[2021-02-17] MEDS ORDERED: FUROSEMIDE 10 MG/ML 10 ML VIAL IV SCH ×2 (18:15→23:41)
[2021-02-17 19:59] LABS: Glucose,Whole Blood 204 mg/dL (75-99)
[2021-02-17] MEDS: AZITHROMYCIN 500 MG TAB PO SCH (20:13)
[2021-02-17] MEDS: LATANOPROST 0.005% OPHTH DROPS 2.5 ML BTL BOTH EYES SCH (20:15)
[2021-02-18] MEDS: FUROSEMIDE 10 MG/ML 10 ML VIAL IV SCH ×3 (03:20→18:03)
[2021-02-18 06:54] LABS: Glucose,Whole Blood 68 mg/dL (75-99)
[2021-02-18] MEDS: PANTOPRAZOLE 40 MG TABLET PO SCH (06:57)
[2021-02-18] MEDS: INSULIN ASPART (NovoLOG) 100 UNIT/ML VIAL SQ SCH ×4 (06:57→21:57)
[2021-02-18 07:14] LABS: Glucose,Whole Blood 94 mg/dL (75-99)
[2021-02-18] MEDS: APIXABAN 5 MG TAB PO SCH ×2 (08:06→21:57)
[2021-02-18] MEDS: FEBUXOSTAT 80 MG PO SCH (08:06)
[2021-02-18] MEDS: INSULIN DETEMIR (LEVEMIR) 100 UNIT/ML SYR SQ SCH (08:06)
[2021-02-18] MEDS: FENOFIBRATE 160 MG TAB PO SCH (08:06)
[2021-02-18] MEDS: METOPROLOL SUCCINATE (ER) 50 MG TAB.ER.24H PO SCH ×2 (08:06→21:57)
[2021-02-18] MEDS: ATORVASTATIN 10 MG TAB PO SCH (08:06)
[2021-02-18] MEDS: DILTIAZEM ORAL 30 MG TAB PO SCH ×4 (08:06→21:57)
[2021-02-18 09:35] LABS: Basophils % (A) 0 %; Eosinophils # (A) 0.2 k/uL (0-0.7); Eosinophils % (A) 2 %; HCT 37.8 % (39.0-53.0); HGB 12.2 gm/dL (13.0-17.5); Lymphocytes # (A) 0.8 k/uL (1.0-4.8); Lymphocytes % (A) 8 %; MCH 28.4 pg (25.0-35.0); MCHC 32.2 g/dL (31.0-37.0); MCV 88.3 fL (80.0-100.0); Mean Platelet Volume 7.7; Monocytes # (A) 0.7 k/uL (0-1.0); Monocytes % (A) 7 %; Neutrophils # (A) 8.4 k/uL (1.3-7.7); Neutrophils % (A) 82 %; Platelet Count 185 k/uL (150-450); RBC 4.28 m/uL (4.30-5.90); RDW 15.9 % (11.5-15.5); WBC 10.2 k/uL (3.8-10.6)
[2021-02-18 09:59] LABS: Albumin 2.8 g/dL (3.5-5.0); Calcium 8.6 mg/dL (8.4-10.2); Potassium 3.3 mmol/L (3.5-5.1); Total Bilirubin 0.6 mg/dL (0.2-1.3); Total Protein 5.4 g/dL (6.3-8.2)
--- NOTE | 2021-02-18 11:16 | P.PN ---
Subjective Progress Note Date: 02/18/21 Principal diagnosis: This 70-year-old male seen in consultation because of acute kidney injury secondary to cardiorenal syndrome, chronic kidney disease stage IV, congestive heart failure. Is known with COPD and uses CPAP at home His being diuresed and is responding. His breathing is improved significantly. Feels much better. Good appetite no nausea vomiting diarrhea Vital signs are stable Urine output is 3800 mL for the last shift Objective - Vital Signs Vital signs: Vital Signs Temp 98.8 F 02/18/21 08:04 Pulse 91 02/18/21 08:04 Resp 33 H 02/18/21 08:04 BP 114/74 02/18/21 08:04 Pulse Ox 91 L 02/18/21 08:04 Intake & Output 02/17/21 02/18/21 02/18/21 18:59 06:59 18:59 Intake Total 1516 240 Output Total 2350 1450 1025 Balance -834 -1450 -785 Weight 40.5 kg Intake: Oral 1516 240 Output: Urine 1550 1210 625 Stool 800 240 400 Other: Voiding Method Urinal Urinal Urinal Exam general he is awake alert oriented comfortable HEENT exam no JVP neck is supple no facial asymmetry Lungs are clear to auscultation good air entry bilaterally occasional basilar crepitance. Heart sounds unremarkable for any murmur rub gallop. He is in atrial fibrillation. Abdomen soft nontender. Extremity exam reveals trace edema. Neurologically awake alert oriented sitting and comfortable - Labs CBC & Chem 7: 02/18/21 08:45 02/18/21 08:45 Labs: Abnormal Lab Results - Last 24 Hours (Table) 02/17/21 02/17/21 02/17/21 Range/Units 11:42 16:40 19:58 RBC (4.30-5.90) m/uL Hgb (13.0-17.5) gm/dL Hct (39.0-53.0) % RDW (11.5-15.5) % Neutrophils # (1.3-7.7) k/uL Lymphocytes # (1.0-4.8) k/uL Sodium (137-145) mmol/L Potassium (3.5-5.1) mmol/L BUN (9-20) mg/dL Creatinine (0.66-1.25) mg/dL Glucose (74-99) mg/dL POC Glucose (mg/dL) 171 H 170 H 204 H (75-99) mg/dL Total Protein (6.3-8.2) g/dL Albumin (3.5-5.0) g/dL 02/18/21 02/18/21 02/18/21 Range/Units 06:53 08:45 08:45 RBC 4.28 L (4.30-5.90) m/uL Hgb 12.2 L (13.0-17.5) gm/dL Hct 37.8 L (39.0-53.0) % RDW 15.9 H (11.5-15.5) % Neutrophils # 8.4 H (1.3-7.7) k/uL Lymphocytes # 0.8 L (1.0-4.8) k/uL Sodium 136 L (137-145) mmol/L Potassium 3.3 L (3.5-5.1) mmol/L BUN 62 H (9-20) mg/dL Creatinine 2.00 H (0.66-1.25) mg/dL Glucose 161 H (74-99) mg/dL POC Glucose (mg/dL) 68 L (75-99) mg/dL Total Protein 5.4 L (6.3-8.2) g/dL Albumin 2.8 L (3.5-5.0) g/dL Microbiology - Last 24 Hours (Table) 02/12/21 10:34 Blood Culture - Preliminary Blood No Growth after 120 hours 02/12/21 10:50 Blood Culture - Preliminary Blood No Growth after 120 hours Assessment and Plan Assessment: Impression 1. Cardiorenal syndrome with acute kidney injury responding to Lasix 40 every 12 with good urine output and improving in creatinine.Lasix dose was escalated to 80 mg every 8 hours this morning. Edema almost resolved. Creatinine impr lindsey from a peak of 3.18- to 2 mg/dL this morning 2. Chronic kidney disease, stage IV nephrosclerosis with GFR around 28-33 in 2019 and more recently 29 dated 03/11/2019. 3. COPD on CPAP. 4. History of coronary artery disease. 5. Mild degree of hypokalemia secondary to diuresis potassium is 3.3 Recommendation 1. Continue diuresis and see how he does. Given his edema is resolved suggest reduce the Lasix and change it to by mouth in preparation for discharge 2. Continue to monitor labs urine output blood pressure 3. Will give him KCl 20 mg daily 2 hours for 3 doses
[2021-02-18 11:46] LABS: Glucose,Whole Blood 166 mg/dL (75-99)
[2021-02-18] MEDS: POTASSIUM CHLORIDE ER 20 MEQ TAB.ER PO SCH ×4 (11:59→23:04)
--- NOTE | 2021-02-18 15:08 | P.PN ---
Subjective Progress Note Date: 02/18/21 Faisal Andrade, is a 70-year-old male who presented to [facility] emergency room with a chief complaint of worsening shortness of breath over several weeks and cough and chest congestion, he was evaluated in the emergency room vital examination on presentation revealed a temperature of 96.7 also 130 respiration 26 blood pressure 142/87 pulse ox 96% on 3 L nasal cannula white blood count was 9.6 hemoglobin 14.1 platelet count 291 sodium 140 potassium 4.7 chloride 110 CO2 20 BUN 58 creatinine 2.4 troponin level was 0.044 BNP was elevated at 5717 Gu virus PCR was negative. Chest x-ray done in the emergency room revealed right lower lobe infiltrate suggestive of pneumonia, EKG revealed evidence of atrial fibrillation with rapid ventricular response. Patient was admitted to telemetry floor, he was started on IV antibiotics ceftriaxone and Zithromax, he was started on Cardizem drip, and IV Lasix, cardiology consultation and pulmonary consultation were requested. On 02/13/2021 patient was seen and examined on the medical floor, he is alert and oriented 3 in no apparent distress he is still complaining of shortness of breath however he noticed some improvement since yesterday he also had some occasional cough otherwise he denies any complaints there is no fever or chills no headache or dizziness no chest pain no nausea or vomiting no abdominal pain no diarrhea no blood in the stools no burning with urination no frequency or urgency and no hematuria he is maintained on IV Lasix his creatinine is going up chronic kidney disease will add a consult for nephrology at this time On 02/14/2021 patient currently resting on BiPAP. Patient does wake up quickly falls back to sleep. Per nursing staff patient remained short of breath with minimal activity. Patient remains on IV Lasix. IV Lasix have been decreased to 2 acute kidney injury. Cardiology, pulmonary and nephrology services are following. Ultrasound kidneys has been ordered per nephrology. At this time patient denies nausea vomiting or diarrhea. Patient denies any urinary burning or frequency On 02/15/2021 patient currently resting on BiPAP. Patient does wake up quickly falls back to sleep. Per nursing staff patient remained short of breath with minimal activity. he is still complaining of shortness of breath however he noticed some improvement since yesterday he also had some occasional cough otherwise he denies any complaints there is no fever or chills no headache or dizziness no chest pain no nausea or vomiting no abdominal pain no diarrhea no blood in the stools no burning with urination no frequency or urgency and no hematuria he is maintained on IV Lasix his creatinine is going up chronic kidney disease will add a consult for nephrology at this time. Patient remains on IV L asix. IV Lasix have been decreased to 2 acute kidney injury. Cardiology, pulmonary and nephrology services are following. Ultrasound kidneys has been ordered per nephrology. At this time patient denies nausea vomiting or diarrhea. Patient denies any urinary burning or frequency On 02/16/2021 patient currently resting on BiPAP. Patient does wake up was able to keep breakfast. Patient maintained on IV Lasix 40 mg twice a day. Ultrasound of kidneys completed showing findings suggestive of medical renal disease. Repeat labs have been ordered. Patient denies chest pain. Patient denies nausea vomiting or diarrhea. Patient denies any urinary burning or frequency. Cardiology, pulmonary and nephrology services are following On 02/17/2021 patient's alert and oriented 3. Patient currently resting on BiPAP. Patient reports he is starting to feel better. Creatinine and bun trending down. Patient does report some shortness breath but does state this is improved. Patient denies chest pain. Patient denies nausea vomiting or diarrhea. Patient denies any urinary burning or frequency. Patient remains on azithromycin and Rocephin for IV antibiotics. IV Lasix 40 mg every 12 hours. Cardiology, pulmonary and nephrology following On 02/18/2021 patient was seen and examined on the medical floor he is alert and oriented 3 in no apparent distress he is still complaining of cough and shortness of breath otherwise he denies any complaints there is no fever or chills no headache or dizziness step pain no palpitation no nausea or vomiting no abdominal pain no diarrhea no blood in the stools no burning with urination no frequency or urgency and no hip Objective - Vital Signs Vital signs: Vital Signs Temp 98.8 F 02/18/21 08:04 Pulse 91 02/18/21 08:04 Resp 33 H 02/18/21 08:04 BP 114/74 02/18/21 08:04 Pulse Ox 91 L 02/18/21 08:04 Intake & Output 02/17/21 02/18/21 02/18/21 18:59 06:59 18:59 Intake Total 1516 Output Total 2350 1450 350 Balance -834 -1450 -350 Weight 40.5 kg Intake: Oral 1516 Output: Urine 1550 1210 200 Stool 800 240 150 Other: Voiding Method Urinal Urinal - Exam In general patient is alert and oriented 3 in no apparent distress HEENT head normocephalic and atraumatic Neck is supple no JVD no goiter no lymphadenopathy Chest exam reveals crackles in both lung zhang no wheezing Cardiac exam reveals irregular heart sounds with tachycardia no murmurs Abdomen is soft nontender no organomegaly with normal bowel sounds Extremity exam reveals 1+ edema, there is a large scabbed ulcer on the left pretibial area with mild surrounding erythema Neurological examination reveals no gross focal deficit - Labs CBC & Chem 7: 02/18/21 08:45 02/18/21 08:45 Labs: Abnormal Lab Results - Last 24 Hours (Table) 02/17/21 02/17/21 02/17/21 Range/Units 08:53 08:53 11:42 Hgb 12.6 L (13.0-17.5) gm/dL RDW 15.9 H (11.5-15.5) % Neutrophils # 8.0 H (1.3-7.7) k/uL Lymphocytes # 0.8 L (1.0-4.8) k/uL BUN 62 H (9-20) mg/dL Creatinine 2.12 H (0.66-1.25) mg/dL Glucose 171 H (74-99) mg/dL POC Glucose (mg/dL) 171 H (75-99) mg/dL Total Protein 5.7 L (6.3-8.2) g/dL Albumin 3.0 L (3.5-5.0) g/dL 02/17/21 02/17/21 02/18/21 Range/Units 16:40 19:58 06:53 Hgb (13.0-17.5) gm/dL RDW (11.5-15.5) % Neutrophils # (1.3-7.7) k/uL Lymphocytes # (1.0-4.8) k/uL BUN (9-20) mg/dL Creatinine (0.66-1.25) mg/dL Glucose (74-99) mg/dL POC Glucose (mg/dL) 170 H 204 H 68 L (75-99) mg/dL Total Protein (6.3-8.2) g/dL Albumin (3.5-5.0) g/dL Microbiology - Last 24 Hours (Table) 02/12/21 10:34 Blood Culture - Preliminary Blood No Growth after 120 hours 02/12/21 10:50 Blood Culture - Preliminary Blood No Growth after 120 hours Assessment and Plan Plan: Acute pneumonia patient was started on IV Rocephin and IV Zithromax. Pulmonary services are following Atrial fibrillation with rapid ventricular response. Patient remains on eliquis for anticoagulation. [facility] services are following Acute congestive heart failure exacerbation with check echocardiogram cardiology consultation requested. Patient remains on IV Lasix Underlying history of hypertension Underlying history of COPD Underlying history of coronary artery disease Underlying history of hyperlipidemia Underlying history of gout Acute kidney injury. Creatinine up to 3.16. Nephrology services are consulted. Ultrasound of kidneys completed showing findings suggestive of medical renal disease. DVT prophylaxis eliquis. GI prophylaxis Protonix Patient remains on IV Rocephin and Zithromax Cardiology, pulmonary and nephrology services are following Remains on IV Lasix
--- NOTE | 2021-02-18 16:09 | P.PN ---
Subjective Progress Note Date: 02/18/21 Principal diagnosis: Acute hypoxic respiratory failure secondary to acute community-acquired right lower lobe pneumonia and underlying COPD with acute exacerbation. 70-year-old male, seen by Dr. Medina and our office on February 12. The patient was very short of breath at that time, and quite hypoxemic, and he was sent to the emergency department for further evaluation. Currently, he is on nasal cannula at 6 L/m, saline at 20 mL an hour, and a Cardizem drip at 15 mg an hour. The patient apparently complained in the ER, that he is having difficulty breathing for several months prior to admission. Over the last few days, she got worse. He denied any chest pain or fever. He did have some lower extremity edema. He has a history of angina, CVA, diabetes, hyperlipidemia, hypertension, myocardial infarction, sleep apnea syndrome, hypothyroidism, aortic stenosis, status post aortic valve replacement, and bowel resection for colon cancer. White count 9.6, he will 14.1, hematocrit 43.4, and platelet count 291,000. PT 12.5 INR 1.2. Sodium 138, potassium 4.3, chlorides 105, CO2 21, anion gap 12, BUN 58, creatinine 2.39. Troponin was 0.049, and N-terminal proBNP was 5770. Chest x-ray was consistent with right lower lobe infiltrate/pneumonia. Patient was reevaluated today on 02/14/2021, patient is feeling better today compared to how he felt yesterday. Remains on antibiotics, bronchodilators, and he remains on bronchodilators, patient was earlier on nasal cannula, however later this afternoon he was transitioned to BiPAP because of low O2 saturations. Placed on BiPAP, his O2 saturation went up to 95%, presently on 50% 10/01. His electrodes are normal renal profile is poor with BUN of 70 creatinine 3.18. WBC count is 10.1 hemoglobin is 15.7. Patient had negative coronarvirus PCR. BNP was elevated at 5770, considering his cardiac history the patient may have a component of congestive heart failure, however chest x-ray is mostly suggestive of right lower lobe pneumonia and possibly some pleural effusion/small. Agent was seen by cardiology, and it was felt that the patient may have acute on chronic diastolic congestive heart failure and he had a troponin leak related to his renal functioning. Patient does have history of valvular heart disease and he is status post aortic valve replacement in 2015. Patient is also known to have history of severe pulmonary hypertension with right-sided pressures of 76 Patient was reevaluated today on 02/15/2021, patient is feeling better, breathing a bit easier, remains on antibiotics, bronchodilators, and diuretics. Today I even increased the dose of his diuretics, patient is on 10 L high flow nasal cannula, yesterday he was on BiPAP. Patient tells me that his feeling much better. However on physical examination continues to have significant crackles bilaterally. His BNP level was elevated, hence I recommended that we continue diuretics, and the dose was increased. Patient remains on Eliquis, remains on Zithromax and Rocephin, is also on diltiazem. I increased the dose of Lasix to 40 mg IV push twice a day. He is on 10 L high flow cannula. Patient was reevaluated today on 02/16/2021, he is basically the same today as he was yesterday, get short of breath with activity. He feels intermittently congested. Remains on antibiotics, bronchodilators and diuretics. When I saw the patient today he was on BiPAP, with IPAP of 12 EPAP of 6, he normally wears CPAP at home, and his FiO2 was 50%. Patient is saturating in the low 90s, 94%, he is hemodynamically stable, he is afebrile. Her on physical examination continues to have significant crackles and rhonchi bilaterally, will recommend follow-up chest x-ray on this patient tomorrow. Renal profile seems to be improving in spite of diuretics, creatinine is 2.4. Patient was reevaluated today on 02/17/2021, patient is feeling better, breathing easier, chest x-ray is looking a lot better. Patient remains on bronchodilators, antibiotics, and diuretics, chest x-ray is significantly improved. Clinically the patient is feeling better. However he remains on 10 L high flow cannula, O2 sats is 92%. Blood pressure is 115/58. Patient is afebrile. CBC is relatively normal, electrolytes are normal BUN is 62 creatinine 2.12, steadily improving since admission patient had a creatinine as high as 3.18 a few days ago. Remains on Lasix at 40 mg IV push every 12 hours. Remains empirically on antibiotics and on bronchodilators Reevaluated today on 02/18/2021, patient is feeling much better from the pulmonary perspective. He has issues today with his colostomy bag, apparently it ruptured, and the nurses are helping him with his colostomy bag cleaning. At any rate pulmonary-jeong he is still on 10 L high flow he is saturating in the mid 90s. Patient is responding well to diuretics, bronchodilators, and he is also on antibiotics. Remains on Lasix at 40 mg IV push twice a day. Follow-up Chest x-ray showed significant improvement compared to his admission chest x- ray. CBC is relatively normal left lites are normal BUN is 62 creatinine 2.0, steadily improving from 3.18 only a few days ago. In spite of diuretics Objective - Vital Signs Vital signs: Vital Signs Temp 98.7 F 02/18/21 16:01 Pulse 116 H 02/18/21 16:01 Resp 22 02/18/21 16:01 BP 140/91 02/18/21 16:01 Pulse Ox 95 02/18/21 16:01 Intake & Output 02/17/21 02/18/21 02/18/21 18:59 06:59 18:59 Intake Total 1516 480 Output Total 2350 1450 2425 Balance -834 1450 -1945 Weight 40.5 kg Intake: Oral 1516 480 Output: Urine 1550 1210 1725 Stool 800 240 700 Other: Voiding Method Urinal Urinal Urinal - Exam Physical Exam revealed 70-year-old white male in no distress. On 10 L nasal cannula. High flow. Head: Atraumatic, normocephalic. HEENT:[Neck is supple.] [No neck masses.] [No thyromegaly.] [No JVD.] Chest: [Symmetrical chest expansion, records persist bilaterally and rhonchi persists. Cardiac Exam: [Irregular rhythm. Normal S1 and S2, no S3 gallop, 2/6 systolic murmur thought the precordium. Abdomen: [Soft, nontender, no megaly, no rebound, no guarding, normal bowel sounds.] Colostomy bag is noted. Extremities: [No clubbing, no edema, no cyanosis.] Good pulses bilaterally. Neurological Exam: [No focal neurologic deficit.] Alert and oriented 3. Psychiatric: Normal mood, affect and normal mental status examination. Extremities: 1+ bipedal edema no tenderness. Musculoskeletal: No deformities noted limitation in range of motion. - Labs CBC & Chem 7: 02/18/21 08:45 02/18/21 08:45 Labs: Abnormal Lab Results - Last 24 Hours (Table) 02/17/21 02/17/21 02/18/21 Range/Units 16:40 19:58 06:53 RBC (4.30-5.90) m/uL Hgb (13.0-17.5) gm/dL Hct (39.0-53.0) % RDW (11.5-15.5) % Neutrophils # (1.3-7.7) k/uL Lymphocytes # (1.0-4.8) k/uL Sodium (137-145) mmol/L Potassium (3.5-5.1) mmol/L BUN (9-20) mg/dL Creatinine (0.66-1.25) mg/dL Glucose (74-99) mg/dL POC Glucose (mg/dL) 170 H 204 H 68 L (75-99) mg/dL Total Protein (6.3-8.2) g/dL Albumin (3.5-5.0) g/dL 02/18/21 02/18/21 02/18/21 Range/Units 08:45 08:45 11:44 RBC 4.28 L (4.30-5.90) m/uL Hgb 12.2 L (13.0-17.5) gm/dL Hct 37.8 L (39.0-53.0) % RDW 15.9 H (11.5-15.5) % Neutrophils # 8.4 H (1.3-7.7) k/uL Lymphocytes # 0.8 L (1.0-4.8) k/uL Sodium 136 L (137-145) mmol/L Potassium 3.3 L (3.5-5.1) mmol/L BUN 62 H (9-20) mg/dL Creatinine 2.00 H (0.66-1.25) mg/dL Glucose 161 H (74-99) mg/dL POC Glucose (mg/dL) 166 H (75-99) mg/dL Total Protein 5.4 L (6.3-8.2) g/dL Albumin 2.8 L (3.5-5.0) g/dL Microbiology - Last 24 Hours (Table) 02/12/21 10:50 Blood Culture - Final Blood No Growth after 144 hours 02/12/21 10:34 Blood Culture - Final Blood No Growth after 144 hours Assessment and Plan Assessment: Impression: Acute on chronic hypoxic respiratory failure secondary to right lower lobe pneumonia/community-acquired. Suspect acute on chronic diastolic congestive heart failure. History of underlying COPD with mild exacerbation. Acute. Valvular heart disease and previous aortic valve replacement in 2015. Chronic kidney disease. Severe pulmonary hypertension. Type 2 diabetes. Dyslipidemia. Benign essential hypertension. Chronic cor pulmonale. History of obstructive sleep apnea syndrome uses CPAP. History of bowel resection for cancer. And previous ileostomy. History of CVA. New onset Atrial fibrillation with RVR could be treated by his underlying pneumonia, could also be paroxysmal atrial fibrillation. Recommendation: Reviewed chest x-ray, it is reassuring that the patient is improving radiographically and clinically at the same time. Continue Lasix and antibiotics. Rocephin and Zithromax Continue present supportive care measures. Continue oxygen. Titrate accordingly maintaining O2 saturation above 90%. Continue bronchodilators. Continue GI prophylaxis. Monitor daily electrolytes and renal profile. Continue insulin. Continue Eliquis. Use BiPAP as needed. Patient has it at bedside, uses it mostly at night We'll continue to follow. Time with Patient: Less than 30
[2021-02-18 16:57] LABS: Glucose,Whole Blood 128 mg/dL (75-99)
[2021-02-18] MEDS: HYDROcodone/APAP 10-325MG 1 EACH TAB PO PRN ×2 (17:21→23:04)
--- NOTE | 2021-02-18 17:50 | P.PN ---
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 He follows in the office with Dr. Bolaños. We have been asked to see in consultation for new onset atrial fibrillation. He presented to the emergency department with symptoms of shortness of breath that has been going on and getting worse for the previous couple of months. He has had increased lower extremity edema and dizziness. He denies symptoms of chest pain or palpitations. He department EKG was obtained revealing atrial fibrillation with rapid ventricular rate. He is a 30 antiplatelet coagulated on Eliquis due to history of PE and was initiated on Cardizem infusion. Chest x-ray obtained revealed right lower lung air space disease possibly atypical pulmonary edema ve rsus pneumonia. He has been started on IV antibiotics. He is also on IV diuretics. Blood sugar was low on arrival at 34. Telemetry tracings reveal ongoing atrial fibrillation with variable ventricular rates. Laboratory data reviewed, WBC 9.6, hemoglobin 14.1, platelets 291, sodium 138, potassium 4.3, creatinine 2.39, troponins 0.049 and 0.044, and T proBNP 5770. Current daily cardiac medications include Eliquis 2.5 mg twice a day, Lasix 40 mg twice a day, Toprol 50 mg twice a day, simvastatin 20 mg daily and amlodipine 5 mg daily. Most recent echocardiogram obtained in the office April 2020 revealed preserved LV systolic function with ejection fraction 55%, mild to moderate mitral regu rgitation, normally functioning prosthetic aortic valve with a mean gradient across the valve of 21 mmHg, mild to moderate tricuspid regurgitation and mild aortic regurgitation noted. Most recent stress test performed in the office in 2018 with a Lexiscan stress test that was negative for stress-induced ischemia. 02/14 Patient seen and examined. Patient admits his SOB is much improved from when he came in. He has been receivied IV Lasix 40mg IV bid. His Cr increased from 2.4 up to 3.18 today. Currently resting with his BIPAP on, lying flat in bed. Admits to chronic LE edema, usually worse at the end of the day similar to what he has now for years. 02/15 Patient seen and examined. Patient remains on BiPAP and states he is feeling better day by day. He does have a left anterior montejo nonhealing ulcer since December and also has a right dorsal foot approximately 2 cm ulceration which has been there for approximately a month which she believes may be related to frostbite. He denies any chest pain or pressure. His Lasix was decreased to 40 mg IV daily. His creatinine today is 2.77, improved from yesterday at 3.18. Heart rates 90s to low 100s. He has been on Toprol 50 mg twice a day. 02/16 Patient seen and examined. Patient states he felt better yesterday however this morning had increased shortness of breath and coughing. He admits his orthopnea is somewhat improving as initially he was unable to sit back in bed and now he was able to lie at a 30 angle. He admits yesterday he felt like he was urinating more however this morning does not feel like he has been urinating as much with the Lasix. No chest pain or pressure. 02/17 Patient seen and examined. Patient believes his respiratory status is slowly improving however still not close to back to normal. He also states his urine output has been decreasing with the Lasix and patient's ins and outs appear rela tively not neutral. He denies any chest pain or pressure. He admits his orthopnea when he came in is improved however still not able to fully lie flat. He has been using BiPAP intermittently mainly at night. 02/18 Patient seen and examined. We were concerned as his urine output was decreasing and overall he had not been improving much respiratory jeong and therefore increase Lasix to 80 mg IV twice a day yesterday. He states he has noticed increased urine output and is feeling much better today. His creatinine is mildly decreased to 2.0 today. REVIEW OF SYSTEMS At the time of my exam: CONSTITUTIONAL: Denies fever or chills. CARDIOVASCULAR: Denies chest pain, shortness of breath, orthopnea, PND or palpitations. RESPIRATORY: Denies cough. GASTROINTESTINAL: Denies abdominal pain, diarrhea, constipation, nausea or vomiting. MUSCULOSKELETAL: Denies myalgias. NEUROLOGIC: Denies numbness, tingling, headacbe or weakness. ENDOCRINE: Denies fatigue, weight change, polydipsia or polyurina. GENITOURINARY: Denies burning, hematuria or urgency with micturation. HEMATOLOGIC: Denies history of anemia or bleeding. PHYSICAL EXAMINATION Vitals reviewed CONSTITUTIONAL: No apparent distress. HEENT: Head is normocephalic. Pupils are equal, round. Sclerae anicteric. Mucous membranes of the mouth are moist. No JVD. No carotid bruit. CHEST EXAMINATION: Bibasilar coarse rales, scattered rhonchi, no wheezes. No chest wall tenderness is noted on palpation or with deep breathing. HEART EXAMINATION: Irregular rate and rhythm. S1, S2 heard. Systolic ejection murmur at the base, no gallops or rub. ABDOMEN: Soft, nontender. Positive bowel sounds. EXTREMITIES: 2+ peripheral pulses, 2+ bilateral lower extremity pitting edema and no calf tenderness. +right foot and left anterior montejo ulcers NEUROLOGIC EXAMINATION: Patient is awake, alert and oriented x3. ASSESSMENT Paroxysmal atrial fibrillation with rapid ventricular rate Acute on chronic diastolic heart failure Hypoxia Troponin leak, likely related to renal function. This flat appearance with no significant rise and fall pattern suggestive of myocardial injury. Valvular heart disease status post tissue aortic valve replacement 2014 Chronic kidney disease Hypertension Diabetes mellitus with hypoglycemia on admission Dyslipidemia MARIANA, improved, at baseline Mild pauses up to 2.4 seconds while sleeping when in Afib, asymptomatic Severe pulmonary hypertension with RSVP 76 Chronic LE edema, may be a component of chronic venous insufficiency Bilateral nonhealing left foot and right montejo ulcers PLAN Continue Eliquis 5mg bid Echo with preserved EF, mild gradient across valve and moderate to severe TR, moderate MR severe pulmonary hypertension. Nephro recommendations appreciated. Continue Cardizem, Metoprolol, better rate controlled. Patient has been doing better on increased Lasix 80 mg IV 3 times a day and creatinine is stable, mildly improved today. Continue to monitor response of aggressive diuresis with Lasix 80 mg IV 3 times a day. Monitor kidney function closely. Appears he is still volume overloaded. Objective - Vital Signs Vital signs: Vital Signs Temp 98.7 F 02/18/21 16:01 Pulse 116 H 02/18/21 16:01 Resp 22 02/18/21 16:01 BP 140/91 02/18/21 16:01 Pulse Ox 95 02/18/21 16:01 Intake & Output 02/17/21 02/18/21 02/18/21 18:59 06:59 18:59 Intake Total 1516 480 Output Total 2350 1450 2425 Balance -834 -1450 -1945 Weight 40.5 kg Intake: Oral 1516 480 Output: Urine 1550 1210 1725 Stool 800 240 700 Other: Voiding Method Urinal Urinal Urinal - Labs CBC & Chem 7: 02/18/21 08:45 02/18/21 08:45 Labs: Abnormal Lab Results - Last 24 Hours (Table) 02/17/21 02/18/21 02/18/21 Range/Units 19:58 06:53 08:45 RBC 4.28 L (4.30-5.90) m/uL Hgb 12.2 L (13.0-17.5) gm/dL Hct 37.8 L (39.0-53.0) % RDW 15.9 H (11.5-15.5) % Neutrophils # 8.4 H (1.3-7.7) k/uL Lymphocytes # 0.8 L (1.0-4.8) k/uL Sodium (137-145) mmol/L Potassium (3.5-5.1) mmol/L BUN (9-20) mg/dL Creatinine (0.66-1.25) mg/dL Glucose (74-99) mg/dL POC Glucose (mg/dL) 204 H 68 L (75-99) mg/dL Total Protein (6.3-8.2) g/dL Albumin (3.5-5.0) g/dL 02/18/21 02/18/21 02/18/21 Range/Units 08:45 11:44 16:55 RBC (4.30-5.90) m/uL Hgb (13.0-17.5) gm/dL Hct (39.0-53.0) % RDW (11.5-15.5) % Neutrophils # (1.3-7.7) k/uL Lymphocytes # (1.0-4.8) k/uL Sodium 136 L (137-145) mmol/L Potassium 3.3 L (3.5-5.1) mmol/L BUN 62 H (9-20) mg/dL Creatinine 2.00 H (0.66-1.25) mg/dL Glucose 161 H (74-99) mg/dL POC Glucose (mg/dL) 166 H 128 H (75-99) mg/dL Total Protein 5.4 L (6.3-8.2) g/dL Albumin 2.8 L (3.5-5.0) g/dL Microbiology - Last 24 Hours (Table) 02/12/21 10:50 Blood Culture - Final Blood No Growth after 144 hours 02/12/21 10:34 Blood Culture - Final Blood No Growth after 144 hours
[2021-02-18 19:56] LABS: Glucose,Whole Blood 203 mg/dL (75-99)
[2021-02-18] MEDS: AZITHROMYCIN 500 MG TAB PO SCH (21:57)
[2021-02-19] MEDS: LATANOPROST 0.005% OPHTH DROPS 2.5 ML BTL BOTH EYES SCH ×2 (02:25→20:52)
[2021-02-19] MEDS: FUROSEMIDE 10 MG/ML 10 ML VIAL IV SCH ×3 (02:39→20:51)
[2021-02-19 06:16] LABS: Glucose,Whole Blood 80 mg/dL (75-99)
[2021-02-19] MEDS: PANTOPRAZOLE 40 MG TABLET PO SCH (07:16)
[2021-02-19] MEDS: INSULIN ASPART (NovoLOG) 100 UNIT/ML VIAL SQ SCH ×4 (08:52→20:51)
[2021-02-19] MEDS: ATORVASTATIN 10 MG TAB PO SCH (08:57)
[2021-02-19] MEDS: APIXABAN 5 MG TAB PO SCH ×2 (08:57→20:52)
[2021-02-19] MEDS: METOPROLOL SUCCINATE (ER) 50 MG TAB.ER.24H PO SCH ×2 (08:57→20:51)
[2021-02-19] MEDS: FENOFIBRATE 160 MG TAB PO SCH (08:57)
[2021-02-19] MEDS: DILTIAZEM ORAL 30 MG TAB PO SCH ×4 (08:57→20:51)
[2021-02-19] MEDS: FEBUXOSTAT 80 MG PO SCH (08:58)
[2021-02-19] MEDS: INSULIN DETEMIR (LEVEMIR) 100 UNIT/ML SYR SQ SCH (08:58)
[2021-02-19] MEDS: HYDROcodone/APAP 10-325MG 1 EACH TAB PO PRN ×2 (09:06→20:50)
--- NOTE | 2021-02-19 09:14 | XR ---
EXAMINATION TYPE: XR chest 2V DATE OF EXAM: 02/19/2021 COMPARISON: Chest x-ray 02/17/2021 HISTORY: Shortness of breath TECHNIQUE: Frontal and lateral views of the chest are obtained. FINDINGS: The right hemidiaphragm is now obscured by increased density at the right lung base. Cardi ac mediastinal silhouette is stable, heart is enlarged. Patient is post median sternotomy. There is n o evident pneumothorax. Perihilar vascular indistinctness is noted. IMPRESSION: Correlate for congestive heart failure with probable right pleural effusion, pneumonia n ot excluded.
[2021-02-19 10:33] LABS: Basophils # (A) 0.1 k/uL (0-0.2); Basophils % (A) 1 %; Eosinophils # (A) 0.2 k/uL (0-0.7); Eosinophils % (A) 2 %; HCT 36.9 % (39.0-53.0); HGB 11.9 gm/dL (13.0-17.5); Lymphocytes # (A) 0.9 k/uL (1.0-4.8); Lymphocytes % (A) 8 %; MCH 28.4 pg (25.0-35.0); MCHC 32.3 g/dL (31.0-37.0); MCV 87.9 fL (80.0-100.0); Mean Platelet Volume 7.9; Monocytes # (A) 0.7 k/uL (0-1.0); Monocytes % (A) 7 %; Neutrophils # (A) 8.5 k/uL (1.3-7.7); Neutrophils % (A) 81 %; Platelet Count 204 k/uL (150-450); RDW 15.6 % (11.5-15.5); WBC 10.4 k/uL (3.8-10.6)
[2021-02-19 10:59] LABS: Albumin 2.8 g/dL (3.5-5.0); Calcium 8.2 mg/dL (8.4-10.2); Potassium 3.2 mmol/L (3.5-5.1); Total Bilirubin 0.5 mg/dL (0.2-1.3); Total Protein 5.4 g/dL (6.3-8.2)
[2021-02-19] MEDS ORDERED: POTASSIUM CHLORIDE ER 20 MEQ TAB.ER PO STA (11:12)
[2021-02-19 11:56] LABS: Glucose,Whole Blood 158 mg/dL (75-99)
--- NOTE | 2021-02-19 12:26 | P.PN ---
Subjective Patient is seen in follow-up for acute kidney injury and chronic kidney disease. Patient has chronic kidney disease stage IIIB with baseline creatinine near 2. Renal function at baseline. Maintained on IV Lasix. Good urine output. Currently on BiPAP. Vital signs are stable. General: The patient appeared well nourished and normally developed. HEENT: On nasal cannula. LUNGS: Breath sounds decreased. HEART: Rate and Rhythm are regular. ABDOMEN: Soft, nontender. EXTREMITITES: Trace edema. Objective - Vital Signs Vital signs: Vital Signs Temp 98.3 F 02/19/21 08:00 Pulse 108 H 02/19/21 08:00 Resp 18 02/19/21 08:00 BP 121/67 02/19/21 08:00 Pulse Ox 94 L 02/19/21 08:00 Intake & Output 02/18/21 02/19/21 02/19/21 18:59 06:59 18:59 Intake Total 720 125 Output Total 2675 1450 Balance -1955 -1450 125 Weight 58.5 kg 58.5 kg Intake: Oral 720 125 Output: Gastric Drainage 200 Urine 1975 650 Stool 700 600 Other: Voiding Method Urinal Urinal - Labs CBC & Chem 7: 02/19/21 09:57 02/19/21 09:57 Labs: Abnormal Lab Results - Last 24 Hours (Table) 02/18/21 02/18/21 02/19/21 Range/Units 16:55 19:54 09:57 RBC 4.20 L (4.30-5.90) m/uL Hgb 11.9 L (13.0-17.5) gm/dL Hct 36.9 L (39.0-53.0) % RDW 15.6 H (11.5-15.5) % Neutrophils # 8.5 H (1.3-7.7) k/uL Lymphocytes # 0.9 L (1.0-4.8) k/uL Sodium (137-145) mmol/L Potassium (3.5-5.1) mmol/L BUN (9-20) mg/dL Creatinine (0.66-1.25) mg/dL Glucose (74-99) mg/dL POC Glucose (mg/dL) 128 H 203 H (75-99) mg/dL Calcium (8.4-10.2) mg/dL Total Protein (6.3-8.2) g/dL Albumin (3.5-5.0) g/dL 02/19/21 02/19/21 Range/Units 09:57 11:36 RBC (4.30-5.90) m/uL Hgb (13.0-17.5) gm/dL Hct (39.0-53.0) % RDW (11.5-15.5) % Neutrophils # (1.3-7.7) k/uL Lymphocytes # (1.0-4.8) k/uL Sodium 136 L (137-145) mmol/L Potassium 3.2 L (3.5-5.1) mmol/L BUN 66 H (9-20) mg/dL Creatinine 1.80 H (0.66-1.25) mg/dL Glucose 198 H (74-99) mg/dL POC Glucose (mg/dL) 158 H (75-99) mg/dL Calcium 8.2 L (8.4-10.2) mg/dL Total Protein 5.4 L (6.3-8.2) g/dL Albumin 2.8 L (3.5-5.0) g/dL Microbiology - Last 24 Hours (Table) 02/12/21 10:50 Blood Culture - Final Blood No Growth after 144 hours 02/12/21 10:34 Blood Culture - Final Blood No Growth after 144 hours Assessment and Plan Plan: Assessment: 1. Acute kidney injury mostly prerenal secondary to cardiorenal syndrome. Renal function improving. Creatinine 1.8 today. No hydronephrosis on kidney ultrasound. 2. Chronic kidney disease stage IIIB with baseline creatinine near 2 secondary to diabetic kidney disease and cardiorenal syndrome. 3. Acute on chronic diastolic CHF with moderate to severe tricuspid regurgitation, moderate mitral regurgitation. 4. Severe pulmonary hypertension. 5. Hypokalemia from diuresis. Plan: Maintain IV Lasix - decrease to 40 mg IV twice daily. Replace potassium. Check magnesium level. Avoid nephrotoxins. Continue to monitor renal function and urine output.
--- NOTE | 2021-02-19 16:51 | P.PN ---
Subjective Progress Note Date: 02/19/21 Principal diagnosis: Atrial fibrillation, CHF. Patient was reevaluated today on 02/16/2021, he is basically the same today as he was yesterday, get short of breath with activity. He feels intermittently congested. Remains on antibiotics, bronchodilators and diuretics. When I saw the patient today he was on BiPAP, with IPAP of 12 EPAP of 6, he normally wears CPAP at home, and his FiO2 was 50%. Patient is saturating in the low 90s, 94%, he is hemodynamically stable, he is afebrile. Her on physical examination continues to have significant crackles and rhonchi bilaterally, will recommend follow-up chest x-ray on this patient tomorrow. Renal profile seems to be improving in spite of diuretics, creatinine is 2.4. Patient was reevaluated today on 02/17/2021, patient is feeling better, breathing easier, chest x-ray is looking a lot better. Patient remains on bronchod ilators, antibiotics, and diuretics, chest x-ray is significantly improved. Clinically the patient is feeling better. However he remains on 10 L high flow cannula, O2 sats is 92%. Blood pressure is 115/58. Patient is afebrile. CBC is relatively normal, electrolytes are normal BUN is 62 creatinine 2.12, steadily improving since admission patient had a creatinine as high as 3.18 a few days ago. Remains on Lasix at 40 mg IV push every 12 hours. Remains empirically on antibiotics and on bronchodilators Reevaluated today on 02/18/2021, patient is feeling much better from the pulmonary perspective. He has issues today with his colostomy bag, apparently it ruptured, and the nurses are helping him with his colostomy bag cleaning. At any rate pulmonary-jeong he is still on 10 L high flow he is saturating in the mid 90s. Patient is responding well to diuretics, bronchodilators, and he is also on antibiotics. Remains on Lasix at 40 mg IV push twice a day. Follow-up Chest x-ray showed significant improvement compared to his admission chest x- ray. CBC is relatively normal left lites are normal BUN is 62 creatinine 2.0, steadily improving from 3.18 only a few days ago. In spite of diuretics Progress note dated 02/19/2021. Currently, the patient is doing much better. The patient is on 10 L high flow O2. Occasionally, he is on BiPAP at 16/8. He's down 3.4 L. The patient still remains in evaluation. The patient has no major complaints today. He seems to be responding well to diuretics, bronchodilators, and antibiotics. His chest x- ray showed significant improvement since admission. White count 10.4, hemoglobin 11.9, hematocrit 36.9, platelet count 204,000. Sodium 136, potassium 3.2, chlorides 101, CO2 28, anion gap 7, BUN 66, and creatinine 1.80. Chest x- ray does show a pattern of CHF, with a right-sided pleural effusion. Objective - Vital Signs Vital signs: Vital Signs Temp 98 F 02/19/21 12:00 Pulse 96 02/19/21 12:00 Resp 20 02/19/21 13:32 BP 118/81 02/19/21 12:00 Pulse Ox 95 02/19/21 12:00 Intake & Output 02/18/21 02/19/21 02/19/21 18:59 06:59 18:59 Intake Total 720 125 Output Total 2675 1450 Balance -1955 -1450 125 Weight 58.5 kg 58.5 kg Intake: Oral 720 125 Output: Gastric Drainage 200 Urine 1975 650 Stool 700 600 Other: Voiding Method Urinal Urinal - Exam No acute distress, oriented 3. Currently, patient on 10 L high flow O2. HEENT examination is grossly unremarkable. Neck supple. Full range of motion. No adenopathy thyromegaly or neck vein distention. Cardiovascular examination reveals an irregular rhythm and rate. S1-S2 normal. No S3 or S4. A 2/6 systolic murmur is noted. Lungs reveal scattered bilateral rhonchi, and basilar crackles. No wheezes. Breath sounds equal bilaterally. Abdomen soft bowel sounds are heard. No masses or tenderness. Colostomy bag noted. Extremities are intact. No cyanosis or clubbing. Trace edema noted. Skin is without rash or lesion. Neurologic examination is brief but nonfocal. - Labs CBC & Chem 7: 02/19/21 09:57 02/19/21 09:57 Labs: Abnormal Lab Results - Last 24 Hours (Table) 02/18/21 02/18/21 02/19/21 Range/Units 16:55 19:54 09:57 RBC 4.20 L (4.30-5.90) m/uL Hgb 11.9 L (13.0-17.5) gm/dL Hct 36.9 L (39.0-53.0) % RDW 15.6 H (11.5-15.5) % Neutrophils # 8.5 H (1.3-7.7) k/uL Lymphocytes # 0.9 L (1.0-4.8) k/uL Sodium (137-145) mmol/L Potassium (3.5-5.1) mmol/L BUN (9-20) mg/dL Creatinine (0.66-1.25) mg/dL Glucose (74-99) mg/dL POC Glucose (mg/dL) 128 H 203 H (75-99) mg/dL Calcium (8.4-10.2) mg/dL Total Protein (6.3-8.2) g/dL Albumin (3.5-5.0) g/dL 02/19/21 02/19/21 Range/Units 09:57 11:36 RBC (4.30-5.90) m/uL Hgb (13.0-17.5) gm/dL Hct (39.0-53.0) % RDW (11.5-15.5) % Neutrophils # (1.3-7.7) k/uL Lymphocytes # (1.0-4.8) k/uL Sodium 136 L (137-145) mmol/L Potassium 3.2 L (3.5-5.1) mmol/L BUN 66 H (9-20) mg/dL Creatinine 1.80 H (0.66-1.25) mg/dL Glucose 198 H (74-99) mg/dL POC Glucose (mg/dL) 158 H (75-99) mg/dL Calcium 8.2 L (8.4-10.2) mg/dL Total Protein 5.4 L (6.3-8.2) g/dL Albumin 2.8 L (3.5-5.0) g/dL Microbiology - Last 24 Hours (Table) 02/12/21 10:50 Blood Culture - Final Blood No Growth after 144 hours 02/12/21 10:34 Blood Culture - Final Blood No Growth after 144 hours Assessment and Plan Assessment: Acute hypoxemic respiratory failure, secondary to right lower lobe pneumonia. Atrial fibrillation with RVR. Chronic diastolic CHF. Status post bovine aortic valve replacement for aortic stenosis (2014). History of CVA. History of diabetes mellitus. History of hyperlipidemia. History of hypertension. Prior history of myocardial infarction. Obstructive sleep apnea syndrome, currently on CPAP. History of gout. Status post bowel resection for cancer, status post ileostomy. Chronic kidney disease. Severe pulmonary hypertension. Plan: Plan dated 02/13/2021. Currently, the patient is feeling better today than he did yesterday and our office. The patient is on Cardizem 50 mg an hour for his atrial fibrillation with rapid ventricular response. The patient was ready on Eliquis. For his right lower lobe pneumonia, the patient is on Rocephin, and azithromycin. No additional recommendations are made. We will continue to follow make recommendations were appropriate. The patient tested negative for coronavirus. Prognosis is guarded. Progress note dated 02/19/2021. Currently, the patient appears to be reasonably stable. The patient on 10 L high flow nasal O2. We will continue medications including Lasix, antibiotics, bronchodilators, etc. Currently, the patient's on 10 L high flow nasal O2. Saturations are reasonable. Additional recommendations and suggestions are forthcoming. Prognosis is guarded. The patient remains on Zithromax and Rocephin. We will continue to follow make recommendations where appropriate. Time with Patient: Less than 30
[2021-02-19 17:17] LABS: Glucose,Whole Blood 162 mg/dL (75-99)
--- NOTE | 2021-02-19 18:19 | P.PN ---
Subjective Progress Note Date: 02/19/21 This is a 70-year-old gentleman with history of aortic wall replacement 2015. Mild nonobstructive coronary artery disease, hypertension, diabetes, dyslipidemia and chronic renal disease who was admitted with a new onset atrial fibrillation and shortness of breath. It appeared that patient had a respirator failure related to pneumonia and a combination of diastolic CHF. Patient's IV Lasix was recently increased with increase in urinary output. Patient is feeling better. He is on 10 L of oxygen with intermittent CPAP. He is also being followed by pulmonology. Overall his chest x-ray is improved and she patient seemed to be feeling better. He is also on Rocephin and Zithromax. He'll continue current medical therapy. Continue electrolytes closely Objective - Vital Signs Vital signs: Vital Signs Temp 98 F 02/19/21 12:00 Pulse 96 02/19/21 12:00 Resp 20 02/19/21 13:32 BP 118/81 02/19/21 12:00 Pulse Ox 95 02/19/21 12:00 Intake & Output 02/18/21 02/19/21 02/19/21 18:59 06:59 18:59 Intake Total 720 250 Output Total 2675 1450 Balance -1955 -1450 250 Weight 58.5 kg 58.5 kg Intake: Oral 720 250 Output: Gastric Drainage 200 Urine 1975 650 Stool 700 600 Other: Voiding Method Urinal Urinal - Exam GENERAL EXAM: Patient is alert and oriented and doesn't appear to be in any acute distress HEENT: Normocephalic. Normal reaction of pupils, equal size, normal range of extraocular motion. No erythema or exudates in the throat. NECK: No masses, no nuchal rigidity. CHEST: No chest wall deformity. LUNGS: Emaciated exchange HEART: S1 and S2 normal . Irregular heart sounds ABDOMEN: No hepatosplenomegaly, normal bowel sounds, no guarding or rigidity. SKIN: No rashes CENTRAL NERVOUS SYSTEM: No focal deficits. EXTREMITIES: Chronic leg edema. Chronic ulcers - Labs CBC & Chem 7: 02/19/21 09:57 02/19/21 09:57 Labs: Abnormal Lab Results - Last 24 Hours (Table) 02/18/21 02/19/21 02/19/21 Range/Units 19:54 09:57 09:57 RBC 4.20 L (4.30-5.90) m/uL Hgb 11.9 L (13.0-17.5) gm/dL Hct 36.9 L (39.0-53.0) % RDW 15.6 H (11.5-15.5) % Neutrophils # 8.5 H (1.3-7.7) k/uL Lymphocytes # 0.9 L (1.0-4.8) k/uL Sodium 136 L (137-145) mmol/L Potassium 3.2 L (3.5-5.1) mmol/L BUN 66 H (9-20) mg/dL Creatinine 1.80 H (0.66-1.25) mg/dL Glucose 198 H (74-99) mg/dL POC Glucose (mg/dL) 203 H (75-99) mg/dL Calcium 8.2 L (8.4-10.2) mg/dL Total Protein 5.4 L (6.3-8.2) g/dL Albumin 2.8 L (3.5-5.0) g/dL 02/19/21 02/19/21 Range/Units 11:36 17:16 RBC (4.30-5.90) m/uL Hgb (13.0-17.5) gm/dL Hct (39.0-53.0) % RDW (11.5-15.5) % Neutrophils # (1.3-7.7) k/uL Lymphocytes # (1.0-4.8) k/uL Sodium (137-145) mmol/L Potassium (3.5-5.1) mmol/L BUN (9-20) mg/dL Creatinine (0.66-1.25) mg/dL Glucose (74-99) mg/dL POC Glucose (mg/dL) 158 H 162 H (75-99) mg/dL Calcium (8.4-10.2) mg/dL Total Protein (6.3-8.2) g/dL Albumin (3.5-5.0) g/dL Assessment and Plan (1) Atrial fibrillation with RVR Current Visit: Yes Status: Acute Code(s): I48.91 - UNSPECIFIED ATRIAL FIBRILLATION SNOMED Code(s): 204646671433440 (2) Congestive heart failure Current Visit: Yes Status: Acute Code(s): I50.9 - HEART FAILURE, UNSPECIFIED SNOMED Code(s): 74014042 (3) S/P aortic valve replacement Current Visit: Yes Status: Acute Code(s): Z95.2 - PRESENCE OF PROSTHETIC HEART VALVE SNOMED Code(s): 9035693536212 (4) Diabetes mellitus Current Visit: No Status: Acute Code(s): E11.9 - TYPE 2 DIABETES MELLITUS WITHOUT COMPLICATIONS SNOMED Code(s): 40030748 (5) HTN (hypertension) Current Visit: No Status: Acute Code(s): I10 - ESSENTIAL (PRIMARY) HYPERTENSION SNOMED Code(s): 92094353 (6) Hyperlipidemia Current Visit: No Status: Acute Code(s): E78.5 - HYPERLIPIDEMIA, UNSPECIFIED SNOMED Code(s): 23831533 Plan: Continue current medical therapy. Follow the recommendation of pulmonology. Overall, patient's critical status is improving. Prognosis is still guarded
--- NOTE | 2021-02-19 18:51 | P.PN ---
Subjective Progress Note Date: 02/19/21 Faisal Andrade, is a 70-year-old male who presented to [facility] emergency room with a chief complaint of worsening shortness of breath over several weeks and cough and chest congestion, he was evaluated in the emergency room vital examination on presentation revealed a temperature of 96.7 also 130 respiration 26 blood pressure 142/87 pulse ox 96% on 3 L nasal cannula white blood count was 9.6 hemoglobin 14.1 platelet count 291 sodium 140 potassium 4.7 chloride 110 CO2 20 BUN 58 creatinine 2.4 troponin level was 0.044 BNP was elevated at 5717 Gu virus PCR was negative. Chest x-ray done in the emergency room revealed right lower lobe infiltrate suggestive of pneumonia, EKG revealed evidence of atrial fibrillation with rapid ventricular response. Patient was admitted to telemetry floor, he was started on IV antibiotics ceftriaxone and Zithromax, he was started on Cardizem drip, and IV Lasix, cardiology consultation and pulmonary consultation were requested. On 02/13/2021 patient was seen and examined on the medical floor, he is alert and oriented 3 in no apparent distress he is still complaining of shortness of breath however he noticed some improvement since yesterday he also had some occasional cough otherwise he denies any complaints there is no fever or chills no headache or dizziness no chest pain no nausea or vomiting no abdominal pain no diarrhea no blood in the stools no burning with urination no frequency or urgency and no hematuria he is maintained on IV Lasix his creatinine is going up chronic kidney disease will add a consult for nephrology at this time On 02/14/2021 patient currently resting on BiPAP. Patient does wake up quickly falls back to sleep. Per nursing staff patient remained short of breath with minimal activity. Patient remains on IV Lasix. IV Lasix have been decreased to 2 acute kidney injury. Cardiology, pulmonary and nephrology services are following. Ultrasound kidneys has been ordered per nephrology. At this time patient denies nausea vomiting or diarrhea. Patient denies any urinary burning or frequency On 02/15/2021 patient currently resting on BiPAP. Patient does wake up quickly falls back to sleep. Per nursing staff patient remained short of breath with minimal activity. he is still complaining of shortness of breath however he noticed some improvement since yesterday he also had some occasional cough otherwise he denies any complaints there is no fever or chills no headache or dizziness no chest pain no nausea or vomiting no abdominal pain no diarrhea no blood in the stools no burning with urination no frequency or urgency and no hematuria he is maintained on IV Lasix his creatinine is going up chronic kidney disease will add a consult for nephrology at this time. Patient remains on IV L asix. IV Lasix have been decreased to 2 acute kidney injury. Cardiology, pulmonary and nephrology services are following. Ultrasound kidneys has been ordered per nephrology. At this time patient denies nausea vomiting or diarrhea. Patient denies any urinary burning or frequency On 02/16/2021 patient currently resting on BiPAP. Patient does wake up was able to keep breakfast. Patient maintained on IV Lasix 40 mg twice a day. Ultrasound of kidneys completed showing findings suggestive of medical renal disease. Repeat labs have been ordered. Patient denies chest pain. Patient denies nausea vomiting or diarrhea. Patient denies any urinary burning or frequency. Cardiology, pulmonary and nephrology services are following On 02/17/2021 patient's alert and oriented 3. Patient currently resting on BiPAP. Patient reports he is starting to feel better. Creatinine and bun trending down. Patient does report some shortness breath but does state this is improved. Patient denies chest pain. Patient denies nausea vomiting or diarrhea. Patient denies any urinary burning or frequency. Patient remains on azithromycin and Rocephin for IV antibiotics. IV Lasix 40 mg every 12 hours. Cardiology, pulmonary and nephrology following On 02/18/2021 patient was seen and examined on the medical floor he is alert and oriented 3 in no apparent distress he is still complaining of cough and shortness of breath otherwise he denies any complaints there is no fever or chills no headache or dizziness step pain no palpitation no nausea or vomiting no abdominal pain no diarrhea no blood in the stools no burning with urination no frequency or urgency and no hip On 02/19/2021 Patient was seen and examined on the medical floor, he is alert and oriented x 3 in no distress, he denies any complaints there is no fever or chills no headache or dizziness no chest pain no shortness of breath no palpitation no nausea or vomiting no abdominal pain no diarrhea no blood in the stools no burning with urination no frequency or urgency and no hematuria, there is no weakness or numbness in any of the extremities no change in vision speech or gait. He is still complaining of cough, will add Mucinex and try to obtain a sputum sample for culture Objective - Vital Signs Vital signs: Vital Signs Temp 98.3 F 02/19/21 08:00 Pulse 108 H 02/19/21 08:00 Resp 18 02/19/21 08:00 BP 121/67 02/19/21 08:00 Pulse Ox 94 L 02/19/21 08:00 Intake & Output 02/18/21 02/19/21 02/19/21 18:59 06:59 18:59 Intake Total 720 125 Output Total 2675 1450 Balance -1954 -0 125 Weight 58.5 kg 58.5 kg Intake: Oral 720 125 Output: Gastric Drainage 200 Urine 1975 650 Stool 700 600 Other: Voiding Method Urinal Urinal - Exam In general patient is alert and oriented 3 in no apparent distress HEENT head normocephalic and atraumatic Neck is supple no JVD no goiter no lymphadenopathy Chest exam reveals crackles in both lung zhang no wheezing Cardiac exam reveals irregular heart sounds with tachycardia no murmurs Abdomen is soft nontender no organomegaly with normal bowel sounds Extremity exam reveals 1+ edema, there is a large scabbed ulcer on the left pretibial area with mild surrounding erythema Neurological examination reveals no gross focal deficit - Labs CBC & Chem 7: 02/19/21 09:57 02/19/21 09:57 Labs: Abnormal Lab Results - Last 24 Hours (Table) 02/18/21 02/18/21 02/19/21 Range/Units 16:55 19:54 09:57 RBC 4.20 L (4.30-5.90) m/uL Hgb 11.9 L (13.0-17.5) gm/dL Hct 36.9 L (39.0-53.0) % RDW 15.6 H (11.5-15.5) % Neutrophils # 8.5 H (1.3-7.7) k/uL Lymphocytes # 0.9 L (1.0-4.8) k/uL Sodium (137-145) mmol/L Potassium (3.5-5.1) mmol/L BUN (9-20) mg/dL Creatinine (0.66-1.25) mg/dL Glucose (74-99) mg/dL POC Glucose (mg/dL) 128 H 203 H (75-99) mg/dL Calcium (8.4-10.2) mg/dL Total Protein (6.3-8.2) g/dL Albumin (3.5-5.0) g/dL 02/19/21 02/19/21 Range/Units 09:57 11:36 RBC (4.30-5.90) m/uL Hgb (13.0-17.5) gm/dL Hct (39.0-53.0) % RDW (11.5-15.5) % Neutrophils # (1.3-7.7) k/uL Lymphocytes # (1.0-4.8) k/uL Sodium 136 L (137-145) mmol/L Potassium 3.2 L (3.5-5.1) mmol/L BUN 66 H (9-20) mg/dL Creatinine 1.80 H (0.66-1.25) mg/dL Glucose 198 H (74-99) mg/dL POC Glucose (mg/dL) 158 H (75-99) mg/dL Calcium 8.2 L (8.4-10.2) mg/dL Total Protein 5.4 L (6.3-8.2) g/dL Albumin 2.8 L (3.5-5.0) g/dL Microbiology - Last 24 Hours (Table) 02/12/21 10:50 Blood Culture - Final Blood No Growth after 144 hours 02/12/21 10:34 Blood Culture - Final Blood No Growth after 144 hours Assessment and Plan Plan: Acute pneumonia patient was started on IV Rocephin and IV Zithromax. Pulmonary services are following Atrial fibrillation with rapid ventricular response. Patient remains on eliquis for anticoagulation. [facility] services are following Acute congestive heart failure exacerbation with check echocardiogram cardiology consultation requested. Patient remains on IV Lasix Underlying history of hypertension Underlying history of COPD Underlying history of coronary artery disease Underlying history of hyperlipidemia Underlying history of gout Acute kidney injury. Creatinine up to 3.16. Nephrology services are consulted. Ultrasound of kidneys completed showing findings suggestive of medical renal disease. DVT prophylaxis eliquis. GI prophylaxis Protonix Patient remains on IV Rocephin and Zithromax Cardiology, pulmonary and nephrology services are following Remains on IV Lasix
[2021-02-19 20:22] LABS: Glucose,Whole Blood 293 mg/dL (75-99)
[2021-02-19] MEDS: guaiFENesin 600 MG TABLET.ER PO SCH (20:51)
[2021-02-19] MEDS: AZITHROMYCIN 500 MG TAB PO SCH (20:51)
[2021-02-20] MEDS: INSULIN ASPART (NovoLOG) 100 UNIT/ML VIAL SQ SCH ×4 (06:25→21:26)
[2021-02-20] MEDS: PANTOPRAZOLE 40 MG TABLET PO SCH (06:29)
[2021-02-20 08:18] LABS: Glucose,Whole Blood 62 mg/dL (75-99)
[2021-02-20 08:18] LABS: Glucose,Whole Blood 91 mg/dL (75-99)
[2021-02-20 08:18] LABS: Glucose,Whole Blood 37 mg/dL (75-99)
[2021-02-20] MEDS: FUROSEMIDE 10 MG/ML 10 ML VIAL IV SCH ×2 (09:55→21:26)
[2021-02-20] MEDS: APIXABAN 5 MG TAB PO SCH ×2 (09:56→21:25)
[2021-02-20] MEDS: DILTIAZEM ORAL 30 MG TAB PO SCH ×4 (09:56→21:26)
[2021-02-20] MEDS: METOPROLOL SUCCINATE (ER) 50 MG TAB.ER.24H PO SCH ×2 (09:56→21:26)
[2021-02-20] MEDS: ATORVASTATIN 10 MG TAB PO SCH (09:56)
[2021-02-20] MEDS: FENOFIBRATE 160 MG TAB PO SCH (09:56)
[2021-02-20] MEDS: guaiFENesin 600 MG TABLET.ER PO SCH ×2 (09:56→21:25)
[2021-02-20] MEDS: HYDROcodone/APAP 10-325MG 1 EACH TAB PO PRN ×3 (09:58→23:24)
[2021-02-20] MEDS: ERGOCALCIFEROL 1,250 MCG (50,000 IU) CAPSULE PO SCH (10:00)
[2021-02-20] MEDS: FEBUXOSTAT 80 MG PO SCH (10:14)
[2021-02-20 10:19] LABS: Basophils # (A) 0.1 k/uL (0-0.2); Basophils % (A) 1 %; Eosinophils # (A) 0.1 k/uL (0-0.7); Eosinophils % (A) 1 %; HCT 40.3 % (39.0-53.0); HGB 12.9 gm/dL (13.0-17.5); Lymphocytes # (A) 0.9 k/uL (1.0-4.8); Lymphocytes % (A) 10 %; MCH 28.2 pg (25.0-35.0); MCV 87.9 fL (80.0-100.0); Mean Platelet Volume 7.8; Monocytes # (A) 0.7 k/uL (0-1.0); Monocytes % (A) 7 %; Neutrophils # (A) 7.5 k/uL (1.3-7.7); Neutrophils % (A) 80 %; Platelet Count 207 k/uL (150-450); RBC 4.58 m/uL (4.30-5.90); RDW 15.6 % (11.5-15.5); WBC 9.3 k/uL (3.8-10.6)
[2021-02-20 10:40] LABS: Albumin 2.8 g/dL (3.5-5.0); Calcium 8.6 mg/dL (8.4-10.2); Potassium 3.7 mmol/L (3.5-5.1); Total Bilirubin 0.5 mg/dL (0.2-1.3); Total Protein 5.6 g/dL (6.3-8.2)
--- NOTE | 2021-02-20 11:14 | P.PN ---
Subjective Patient is seen in follow-up for acute kidney injury and chronic kidney disease. Patient has chronic kidney disease stage IIIB with baseline creatinine near 2. Renal function stable. Maintained on IV Lasix. Good urine output. Currently on nasal cannula. Oral intake fair. Vital signs are stable. General: The patient appeared well nourished and normally developed. HEENT: On nasal cannula. LUNGS: Breath sounds decreased. HEART: Rate and Rhythm are regular. ABDOMEN: Soft, nontender. EXTREMITITES: Trace edema. Objective - Vital Signs Vital signs: Vital Signs Temp 97.6 F 02/20/21 09:55 Pulse 101 H 02/20/21 09:55 Resp 22 02/20/21 09:55 BP 133/88 02/20/21 09:55 Pulse Ox 91 L 02/20/21 09:55 Intake & Output 02/19/21 02/20/21 02/20/21 18:59 06:59 18:59 Intake Total 250 Output Total 450 1040 300 Balance -200 -1040 -300 Weight 58.5 kg 60.5 kg Intake: Oral 250 Output: Urine 450 440 Stool 600 300 Other: Voiding Method Urinal # Voids 1 # Bowel Movements 1 - Labs CBC & Chem 7: 02/20/21 09:43 02/20/21 09:43 Labs: Abnormal Lab Results - Last 24 Hours (Table) 02/19/21 02/19/21 02/19/21 Range/Units 11:36 17:16 20:21 Hgb (13.0-17.5) gm/dL RDW (11.5-15.5) % Lymphocytes # (1.0-4.8) k/uL BUN (9-20) mg/dL Creatinine (0.66-1.25) mg/dL POC Glucose (mg/dL) 158 H 162 H 293 H (75-99) mg/dL Magnesium (1.6-2.3) mg/dL Total Protein (6.3-8.2) g/dL Albumin (3.5-5.0) g/dL 02/20/21 02/20/21 02/20/21 Range/Units 06:04 06:24 09:43 Hgb 12.9 L (13.0-17.5) gm/dL RDW 15.6 H (11.5-15.5) % Lymphocytes # 0.9 L (1.0-4.8) k/uL BUN (9-20) mg/dL Creatinine (0.66-1.25) mg/dL POC Glucose (mg/dL) 37 L 62 L (75-99) mg/dL Magnesium (1.6-2.3) mg/dL Total Protein (6.3-8.2) g/dL Albumin (3.5-5.0) g/dL 02/20/21 Range/Units 09:43 Hgb (13.0-17.5) gm/dL RDW (11.5-15.5) % Lymphocytes # (1.0-4.8) k/uL BUN 66 H (9-20) mg/dL Creatinine 1.75 H (0.66-1.25) mg/dL POC Glucose (mg/dL) (75-99) mg/dL Magnesium 1.0 L (1.6-2.3) mg/dL Total Protein 5.6 L (6.3-8.2) g/dL Albumin 2.8 L (3.5-5.0) g/dL Assessment and Plan Plan: Assessment: 1. Acute kidney injury mostly prerenal secondary to cardiorenal syndrome. Renal function improved. Creatinine 1.75 today. No hydronephrosis on kidney ultrasound. 2. Chronic kidney disease stage IIIB with baseline creatinine near 2 secondary to diabetic kidney disease and cardiorenal syndrome. 3. Acute on chronic diastolic CHF with moderate to severe tricuspid regurgitation, moderate mitral regurgitation. 4. Severe pulmonary hypertension. 5. Hypokalemia from diuresis. Replace. Better. 6. Hypomagnesemia from diuresis. Plan: Maintain IV Lasix. Replace magnesium. 4 g IV today to be infused over 8 hours. Avoid nephrotoxins. Continue to monitor renal function and urine output.
[2021-02-20 11:34] LABS: Glucose,Whole Blood 113 mg/dL (75-99)
[2021-02-20] MEDS: MAGNESIUM SULFATE-D5W PMX 1 GM in DEXTROSE/WATER 1 100ML.BAG IVPB SCH ×4 (11:50→18:07)
[2021-02-20] MEDS: ALBUTEROL NEBULIZED 2.5 MG/3 ML INHALATION PRN (12:14)
--- NOTE | 2021-02-20 13:12 | P.PN ---
Subjective Progress Note Date: 02/20/21 Principal diagnosis: Atrial fibrillation, CHF. Patient was reevaluated today on 02/16/2021, he is basically the same today as he was yesterday, get short of breath with activity. He feels intermittently congested. Remains on antibiotics, bronchodilators and diuretics. When I saw the patient today he was on BiPAP, with IPAP of 12 EPAP of 6, he normally wears CPAP at home, and his FiO2 was 50%. Patient is saturating in the low 90s, 94%, he is hemodynamically stable, he is afebrile. Her on physical examination continues to have significant crackles and rhonchi bilaterally, will recommend follow-up chest x-ray on this patient tomorrow. Renal profile seems to be improving in spite of diuretics, creatinine is 2.4. Patient was reevaluated today on 02/17/2021, patient is feeling better, breathing easier, chest x-ray is looking a lot better. Patient remains on bronchod ilators, antibiotics, and diuretics, chest x-ray is significantly improved. Clinically the patient is feeling better. However he remains on 10 L high flow cannula, O2 sats is 92%. Blood pressure is 115/58. Patient is afebrile. CBC is relatively normal, electrolytes are normal BUN is 62 creatinine 2.12, steadily improving since admission patient had a creatinine as high as 3.18 a few days ago. Remains on Lasix at 40 mg IV push every 12 hours. Remains empirically on antibiotics and on bronchodilators Reevaluated today on 02/18/2021, patient is feeling much better from the pulmonary perspective. He has issues today with his colostomy bag, apparently it ruptured, and the nurses are helping him with his colostomy bag cleaning. At any rate pulmonary-jeong he is still on 10 L high flow he is saturating in the mid 90s. Patient is responding well to diuretics, bronchodilators, and he is also on antibiotics. Remains on Lasix at 40 mg IV push twice a day. Follow-up Chest x-ray showed significant improvement compared to his admission chest x- ray. CBC is relatively normal left lites are normal BUN is 62 creatinine 2.0, steadily improving from 3.18 only a few days ago. In spite of diuretics Progress note dated 02/19/2021. Currently, the patient is doing much better. The patient is on 10 L high flow O2. Occasionally, he is on BiPAP at 16/8. He's down 3.4 L. The patient still remains in evaluation. The patient has no major complaints today. He seems to be responding well to diuretics, bronchodilators, and antibiotics. His chest x- ray showed significant improvement since admission. White count 10.4, hemoglobin 11.9, hematocrit 36.9, platelet count 204,000. Sodium 136, potassium 3.2, chlorides 101, CO2 28, anion gap 7, BUN 66, and creatinine 1.80. Chest x- ray does show a pattern of CHF, with a right-sided pleural effusion. Progress note dated 02/20/2021. Currently, the patient appears to be doing much better. He's currently on saline at 20 mL an hour. His oxygen has been weaned down from 10 L high flow O2 6 L high flow. At nighttime, he uses BiPAP, with settings of IPAP 16, EPAP 8, and percent. He used to BiPAP last night intact. It does seem to help him. He has no particular complaints today. Lab data today shows a white count of 9.3, hemoglobin 12.9, hematocrit 40.3, and platelet count 207,000. Sodium potassium chloride CO2 all normal. Anion gap normal. BUN 66, with a creatinine 1.75. Chest x-ray from February 19 is reviewed. It does show a pattern of CHF. Objective - Vital Signs Vital signs: Vital Signs Temp 97.3 F L 02/20/21 12:00 Pulse 104 H 02/20/21 12:34 Resp 23 02/20/21 12:00 BP 110/64 02/20/21 12:00 Pulse Ox 86 L 02/20/21 12:00 Intake & Output 02/19/21 02/20/21 02/20/21 18:59 06:59 18:59 Intake Total 250 Output Total 450 1040 300 Balance -200 -1040 -300 Weight 58.5 kg 60.5 kg Intake: Oral 250 Output: Urine 450 440 Stool 600 300 Other: Voiding Method Urinal Urinal # Voids 1 # Bowel Movements 1 - Exam No acute distress, oriented 3. Currently, patient on 6 L high flow O2. Saturations are in the high 80s, or low 90s. HEENT examination is grossly unremarkable. Neck supple. Full range of motion. No adenopathy thyromegaly or neck vein distention. Cardiovascular examination reveals an irregular rhythm and rate. S1-S2 normal. No S3 or S4. A 2/6 systolic murmur is noted. Heart rate is 104 bpm. Heart sounds are distant. Lungs reveal scattered bilateral rhonchi, and basilar crackles. No wheezes. Breath sounds equal bilaterally. Abdomen soft bowel sounds are heard. No masses or tenderness. Colostomy bag noted. Extremities are intact. No cyanosis or clubbing. Trace edema noted. Skin is without rash or lesion. Neurologic examination is brief but nonfocal. - Labs CBC & Chem 7: 02/20/21 09:43 02/20/21 09:43 Labs: Abnormal Lab Results - Last 24 Hours (Table) 02/19/21 02/19/21 02/20/21 Range/Units 17:16 20:21 06:04 Hgb (13.0-17.5) gm/dL RDW (11.5-15.5) % Lymphocytes # (1.0-4.8) k/uL BUN (9-20) mg/dL Creatinine (0.66-1.25) mg/dL POC Glucose (mg/dL) 162 H 293 H 37 L (75-99) mg/dL Magnesium (1.6-2.3) mg/dL Total Protein (6.3-8.2) g/dL Albumin (3.5-5.0) g/dL 02/20/21 02/20/21 02/20/21 Range/Units 06:24 09:43 09:43 Hgb 12.9 L (13.0-17.5) gm/dL RDW 15.6 H (11.5-15.5) % Lymphocytes # 0.9 L (1.0-4.8) k/uL BUN 66 H (9-20) mg/dL Creatinine 1.75 H (0.66-1.25) mg/dL POC Glucose (mg/dL) 62 L (75-99) mg/dL Magnesium 1.0 L (1.6-2.3) mg/dL Total Protein 5.6 L (6.3-8.2) g/dL Albumin 2.8 L (3.5-5.0) g/dL 02/20/21 Range/Units 11:33 Hgb (13.0-17.5) gm/dL RDW (11.5-15.5) % Lymphocytes # (1.0-4.8) k/uL BUN (9-20) mg/dL Creatinine (0.66-1.25) mg/dL POC Glucose (mg/dL) 113 H (75-99) mg/dL Magnesium (1.6-2.3) mg/dL Total Protein (6.3-8.2) g/dL Albumin (3.5-5.0) g/dL Assessment and Plan Assessment: Acute hypoxemic respiratory failure, secondary to right lower lobe pneumonia. Atrial fibrillation with RVR. Chronic diastolic CHF. Status post bovine aortic valve replacement for aortic stenosis (2014). History of CVA. History of diabetes mellitus. History of hyperlipidemia. History of hypertension. Prior history of myocardial infarction. Obstructive sleep apnea syndrome, currently on CPAP. History of gout. Status post bowel resection for cancer, status post ileostomy. Chronic kidney disease. Severe pulmonary hypertension. Plan: Plan dated 02/13/2021. Currently, the patient is feeling better today than he did yesterday and our office. The patient is on Cardizem 50 mg an hour for his atrial fibrillation with rapid ventricular response. The patient was ready on Eliquis. For his right lower lobe pneumonia, the patient is on Rocephin, and azithromycin. No additional recommendations are made. We will continue to follow make recommendations were appropriate. The patient tested negative for coronavirus. Prognosis is guarded. Progress note dated 02/19/2021. Currently, the patient appears to be reasonably stable. The patient on 10 L high flow nasal O2. We will continue medications including Lasix, antibiotics, bronchodilators, etc. Currently, the patient's on 10 L high flow nasal O2. Saturations are reasonable. Additional recommendations and suggestions are forthcoming. Prognosis is guarded. The patient remains on Zithromax and Rocephin. We will continue to follow make recommendations where appropriate. Progress note dated 02/20/2021. All microbiology is as far negative. Laboratory data, and chest x-ray from February 19, are reviewed. The patient is doing better. Ocular requirements have been reduced. He remains on Zithromax as monotherapy for suspected pneumonia. The rest of his medications appear to be appropriate. He will continue using BiPAP at nighttime. Additional recommendations and suggestions are forthcoming. Prognosis is guarded. We will continue to follow this patient along with you. Time with Patient: Less than 30
[2021-02-20] MEDS: INSULIN DETEMIR (LEVEMIR) 100 UNIT/ML SYR SQ SCH ×2 (14:32→21:26)
--- NOTE | 2021-02-20 15:44 | P.PN ---
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 He follows in the office with Dr. Bolaños. We have been asked to see in consultation for new onset atrial fibrillation and elevated troponins. Troponins 0.049 and 0.044, and T proBNP 5770. Current home daily cardiac medications include Eliquis 2.5 mg twice a day, Lasix 40 mg twice a day, Toprol 50 mg twice a day, simvastatin 20 mg daily and amlodipine 5 mg daily. Most recent echocardiogram obtained in the office April 2020 revealed preserved LV systolic function with ejection fraction 55%, mild to moderate mitral regurgitation, normally functioning prosthetic aortic valve with a mean gradient across the valve of 21 mmHg, mild to moderate tricuspid regurgitation and mild aortic regurgitation noted. Most recent stress test performed in the office in 2018 with a Lexiscan stress test that was negative for stress-induced ischemia. Echocardiogram revealed left ventricle systolic function EF between 5560 percent, RV severely dilated, LA severely dilated, RA is moderately enlarged, mild stenosis of the prior no prosthetic aortic valve with a mean gradient 19 mmHg, mild mitral stenosis, moderate MR, moderate to severe TR, severe pulmonary hypertension Patient was started on IV Lasix and was on BIPAP to maintain oxygen saturations. 02/20/21: Patient seen and examined at bedside. State his breathing has improved. No complaints at this time. BP 110/64, HR 90-100, afebrile, Requiring high flow nasal cannula to maintain oxygen saturations. Sodium 139, potassium 3.7, serum creatinine 1.75, magnesium 1.0, albumin 2.8, total protein 5.6 PHYSICAL EXAMINATION Vitals reviewed CONSTITUTIONAL: No apparent distress. HEENT: Head is normocephalic. No JVD. No carotid bruit. CHEST EXAMINATION: Bibasilar coarse rales, scattered rhonchi, no wheezes. HEART EXAMINATION: Irregular rate and rhythm. S1, S2 heard. Systolic ejection murmur at the base ABDOMEN: Soft, nontender. Positive bowel sounds. EXTREMITIES: 2+ peripheral pulses, 2+ bilateral lower extremity pitting edema and no calf tenderness. +right foot and left anterior montejo ulcers NEUROLOGIC EXAMINATION: Patient is awake, alert and oriented x3. ASSESSMENT Paroxysmal atrial fibrillation with rapid ventricular rate Acute on chronic diastolic heart failure Hypoxia Right lower lobe pnuemonia Troponin leak, likely related to renal function. This flat appearance with no significant rise and fall pattern suggestive of myocardial injury. Valvular heart disease status post tissue aortic valve replacement 2014 Chronic kidney disease Hypertension Diabetes mellitus with hypoglycemia on admission Dyslipidemia MARIANA, improved, at baseline Mild pauses up to 2.4 seconds while sleeping when in Afib, asymptomatic Severe pulmonary hypertension with RSVP 76 Chronic LE edema, may be a component of chronic venous insufficiency Bilateral nonhealing left foot and right montejo ulcers Hypomagnesia- replaced PLAN Continue Eliquis 5mg bid Nephrology following, recommendations appreciated. Pulmonary following, recommendations appreciated - patient is currently being treated with azithromycin and IV Rocephin Continue Cardizem, Metoprolol, better rate controlled. Continue Lasix 40mg BID Monitor renal function and electrolytes. Further recommendations based on clinical course Objective - Vital Signs Vital signs: Vital Signs Temp 97.3 F L 02/20/21 12:00 Pulse 104 H 02/20/21 12:34 Resp 23 02/20/21 12:00 BP 110/64 02/20/21 12:00 Pulse Ox 86 L 02/20/21 12:00 Intake & Output 02/19/21 02/20/21 02/20/21 18:59 06:59 18:59 Intake Total 250 360 Output Total 450 1040 550 Balance -200 -1040 -190 Weight 58.5 kg 60.5 kg Intake: Oral 250 360 Output: Urine 450 440 200 Stool 600 350 Other: Voiding Method Urinal Urinal # Voids 1 # Bowel Movements 1 - Labs CBC & Chem 7: 02/20/21 09:43 02/20/21 09:43 Labs: Abnormal Lab Results - Last 24 Hours (Table) 02/19/21 02/19/21 02/20/21 Range/Units 17:16 20:21 06:04 Hgb (13.0-17.5) gm/dL RDW (11.5-15.5) % Lymphocytes # (1.0-4.8) k/uL BUN (9-20) mg/dL Creatinine (0.66-1.25) mg/dL POC Glucose (mg/dL) 162 H 293 H 37 L (75-99) mg/dL Magnesium (1.6-2.3) mg/dL Total Protein (6.3-8.2) g/dL Albumin (3.5-5.0) g/dL 02/20/21 02/20/21 02/20/21 Range/Units 06:24 09:43 09:43 Hgb 12.9 L (13.0-17.5) gm/dL RDW 15.6 H (11.5-15.5) % Lymphocytes # 0.9 L (1.0-4.8) k/uL BUN 66 H (9-20) mg/dL Creatinine 1.75 H (0.66-1.25) mg/dL POC Glucose (mg/dL) 62 L (75-99) mg/dL Magnesium 1.0 L (1.6-2.3) mg/dL Total Protein 5.6 L (6.3-8.2) g/dL Albumin 2.8 L (3.5-5.0) g/dL 02/20/21 Range/Units 11:33 Hgb (13.0-17.5) gm/dL RDW (11.5-15.5) % Lymphocytes # (1.0-4.8) k/uL BUN (9-20) mg/dL Creatinine (0.66-1.25) mg/dL POC Glucose (mg/dL) 113 H (75-99) mg/dL Magnesium (1.6-2.3) mg/dL Total Protein (6.3-8.2) g/dL Albumin (3.5-5.0) g/dL
[2021-02-20 16:46] LABS: Glucose,Whole Blood 345 mg/dL (75-99)
--- NOTE | 2021-02-20 19:20 | P.PN ---
Subjective Progress Note Date: 02/20/21 Faisal Andrade, is a 70-year-old male who presented to [facility] emergency room with a chief complaint of worsening shortness of breath over several weeks and cough and chest congestion, he was evaluated in the emergency room vital examination on presentation revealed a temperature of 96.7 also 130 respiration 26 blood pressure 142/87 pulse ox 96% on 3 L nasal cannula white blood count was 9.6 hemoglobin 14.1 platelet count 291 sodium 140 potassium 4.7 chloride 110 CO2 20 BUN 58 creatinine 2.4 troponin level was 0.044 BNP was elevated at 5717 Gu virus PCR was negative. Chest x-ray done in the emergency room revealed right lower lobe infiltrate suggestive of pneumonia, EKG revealed evidence of atrial fibrillation with rapid ventricular response. Patient was admitted to telemetry floor, he was started on IV antibiotics ceftriaxone and Zithromax, he was started on Cardizem drip, and IV Lasix, cardiology consultation and pulmonary consultation were requested. On 02/13/2021 patient was seen and examined on the medical floor, he is alert and oriented 3 in no apparent distress he is still complaining of shortness of breath however he noticed some improvement since yesterday he also had some occasional cough otherwise he denies any complaints there is no fever or chills no headache or dizziness no chest pain no nausea or vomiting no abdominal pain no diarrhea no blood in the stools no burning with urination no frequency or urgency and no hematuria he is maintained on IV Lasix his creatinine is going up chronic kidney disease will add a consult for nephrology at this time On 02/14/2021 patient currently resting on BiPAP. Patient does wake up quickly falls back to sleep. Per nursing staff patient remained short of breath with minimal activity. Patient remains on IV Lasix. IV Lasix have been decreased to 2 acute kidney injury. Cardiology, pulmonary and nephrology services are following. Ultrasound kidneys has been ordered per nephrology. At this time patient denies nausea vomiting or diarrhea. Patient denies any urinary burning or frequency On 02/15/2021 patient currently resting on BiPAP. Patient does wake up quickly falls back to sleep. Per nursing staff patient remained short of breath with minimal activity. he is still complaining of shortness of breath however he noticed some improvement since yesterday he also had some occasional cough otherwise he denies any complaints there is no fever or chills no headache or dizziness no chest pain no nausea or vomiting no abdominal pain no diarrhea no blood in the stools no burning with urination no frequency or urgency and no hematuria he is maintained on IV Lasix his creatinine is going up chronic kidney disease will add a consult for nephrology at this time. Patient remains on IV L asix. IV Lasix have been decreased to 2 acute kidney injury. Cardiology, pulmonary and nephrology services are following. Ultrasound kidneys has been ordered per nephrology. At this time patient denies nausea vomiting or diarrhea. Patient denies any urinary burning or frequency On 02/16/2021 patient currently resting on BiPAP. Patient does wake up was able to keep breakfast. Patient maintained on IV Lasix 40 mg twice a day. Ultrasound of kidneys completed showing findings suggestive of medical renal disease. Repeat labs have been ordered. Patient denies chest pain. Patient denies nausea vomiting or diarrhea. Patient denies any urinary burning or frequency. Cardiology, pulmonary and nephrology services are following On 02/17/2021 patient's alert and oriented 3. Patient currently resting on BiPAP. Patient reports he is starting to feel better. Creatinine and bun trending down. Patient does report some shortness breath but does state this is improved. Patient denies chest pain. Patient denies nausea vomiting or diarrhea. Patient denies any urinary burning or frequency. Patient remains on azithromycin and Rocephin for IV antibiotics. IV Lasix 40 mg every 12 hours. Cardiology, pulmonary and nephrology following On 02/18/2021 patient was seen and examined on the medical floor he is alert and oriented 3 in no apparent distress he is still complaining of cough and shortness of breath otherwise he denies any complaints there is no fever or chills no headache or dizziness step pain no palpitation no nausea or vomiting no abdominal pain no diarrhea no blood in the stools no burning with urination no frequency or urgency and no hip On 02/19/2021 Patient was seen and examined on the medical floor, he is alert and oriented x 3 in no distress, he denies any complaints there is no fever or chills no headache or dizziness no chest pain no shortness of breath no palpitation no nausea or vomiting no abdominal pain no diarrhea no blood in the stools no burning with urination no frequency or urgency and no hematuria, there is no weakness or numbness in any of the extremities no change in vision speech or gait. He is still complaining of cough, will add Mucinex and try to obtain a sputum sample for culture. On 02/20/2021 Patient was seen and examined on the medical floor, he is alert and oriented x 3 in no distress, he denies any complaints there is no fever or chills no headache or dizziness no chest pain no shortness of breath no palpitation no cough no nausea or vomiting no abdominal pain no diarrhea no blood in the stools no burning with urination no frequency or urgency and no hematuria, there is no weakness or numbness in any of the extremities no change in vision speech or gait. Vital exam reveals a temperature of 97.9 pulse 1 or 2 respiration 20 lungs pressure 130/88 pulse ox 89% on 15 L high flow cannula. White blood count is 9.3 hemoglobin 12.9 platelet count 207 sodium 139 potassium 3.7 chloride 102 CO2 27 BUN 66 creatinine 1.75 Objective - Vital Signs Vital signs: Vital Signs Temp 97.9 F 02/20/21 16:00 Pulse 102 H 02/20/21 16:00 Resp 20 02/20/21 16:00 BP 130/88 02/20/21 16:00 Pulse Ox 89 L 02/20/21 16:00 Intake & Output 02/20/21 02/20/21 02/21/21 06:59 18:59 06:59 Intake Total 600 Output Total 1040 975 Balance -1040 -375 Weight 60.5 kg Intake: Oral 600 Output: Urine 440 425 Stool 600 550 Other: Voiding Method Urinal Urinal # Voids 1 # Bowel Movements 1 - Exam In general patient is alert and oriented 3 in no apparent distress HEENT head normocephalic and atraumatic Neck is supple no JVD no goiter no lymphadenopathy Chest exam reveals crackles in both lung zhang no wheezing Cardiac exam reveals irregular heart sounds with tachycardia no murmurs Abdomen is soft nontender no organomegaly with normal bowel sounds Extremity exam reveals 1+ edema, there is a large scabbed ulcer on the left pretibial area with mild surrounding erythema Neurological examination reveals no gross focal deficit - Labs CBC & Chem 7: 02/20/21 09:43 02/20/21 09:43 Labs: Abnormal Lab Results - Last 24 Hours (Table) 02/19/21 02/20/21 02/20/21 Range/Units 20:21 06:04 06:24 Hgb (13.0-17.5) gm/dL RDW (11.5-15.5) % Lymphocytes # (1.0-4.8) k/uL BUN (9-20) mg/dL Creatinine (0.66-1.25) mg/dL POC Glucose (mg/dL) 293 H 37 L 62 L (75-99) mg/dL Magnesium (1.6-2.3) mg/dL Total Protein (6.3-8.2) g/dL Albumin (3.5-5.0) g/dL 02/20/21 02/20/21 02/20/21 Range/Units 09:43 09:43 11:33 Hgb 12.9 L (13.0-17.5) gm/dL RDW 15.6 H (11.5-15.5) % Lymphocytes # 0.9 L (1.0-4.8) k/uL BUN 66 H (9-20) mg/dL Creatinine 1.75 H (0.66-1.25) mg/dL POC Glucose (mg/dL) 113 H (75-99) mg/dL Magnesium 1.0 L (1.6-2.3) mg/dL Total Protein 5.6 L (6.3-8.2) g/dL Albumin 2.8 L (3.5-5.0) g/dL 02/20/21 Range/Units 16:42 Hgb (13.0-17.5) gm/dL RDW (11.5-15.5) % Lymphocytes # (1.0-4.8) k/uL BUN (9-20) mg/dL Creatinine (0.66-1.25) mg/dL POC Glucose (mg/dL) 345 H (75-99) mg/dL Magnesium (1.6-2.3) mg/dL Total Protein (6.3-8.2) g/dL Albumin (3.5-5.0) g/dL Assessment and Plan Plan: Acute pneumonia patient was started on IV Rocephin and IV Zithromax. Pulmonary services are following Atrial fibrillation with rapid ventricular response. Patient remains on eliquis for anticoagulation. [facility] services are following Acute congestive heart failure exacerbation with check echocardiogram cardiology consultation requested. Patient remains on IV Lasix Underlying history of hypertension Underlying history of COPD Underlying history of coronary artery disease Underlying history of hyperlipidemia Underlying history of gout Acute kidney injury. Creatinine up to 3.16. Nephrology services are consulted. Ultrasound of kidneys completed showing findings suggestive of medical renal disease. DVT prophylaxis eliquis. GI prophylaxis Protonix Patient remains on IV Rocephin and Zithromax Cardiology, pulmonary and nephrology services are following Remains on IV Lasix
[2021-02-20 20:38] LABS: Glucose,Whole Blood 267 mg/dL (75-99)
[2021-02-20] MEDS: AZITHROMYCIN 500 MG TAB PO SCH (21:25)
[2021-02-20] MEDS: LATANOPROST 0.005% OPHTH DROPS 2.5 ML BTL BOTH EYES SCH (21:27)
[2021-02-21 06:24] LABS: Glucose,Whole Blood 76 mg/dL (75-99)
[2021-02-21] MEDS: INSULIN ASPART (NovoLOG) 100 UNIT/ML VIAL SQ SCH ×4 (06:30→20:20)
[2021-02-21] MEDS: PANTOPRAZOLE 40 MG TABLET PO SCH (06:30)
[2021-02-21] MEDS: ALBUTEROL NEBULIZED 2.5 MG/3 ML INHALATION PRN (08:13)
[2021-02-21 08:29] LABS: Calcium 8.9 mg/dL (8.4-10.2); Magnesium 1.9 mg/dL (1.6-2.3); Potassium 3.7 mmol/L (3.5-5.1)
[2021-02-21] MEDS: FUROSEMIDE 10 MG/ML 10 ML VIAL IV SCH (09:04)
[2021-02-21] MEDS: ATORVASTATIN 10 MG TAB PO SCH (09:05)
[2021-02-21] MEDS: DILTIAZEM ORAL 30 MG TAB PO SCH ×4 (09:05→20:20)
[2021-02-21] MEDS: METOPROLOL SUCCINATE (ER) 50 MG TAB.ER.24H PO SCH ×2 (09:05→20:20)
[2021-02-21] MEDS: guaiFENesin 600 MG TABLET.ER PO SCH ×2 (09:05→20:20)
[2021-02-21] MEDS: FENOFIBRATE 160 MG TAB PO SCH (09:05)
[2021-02-21] MEDS: APIXABAN 5 MG TAB PO SCH ×2 (09:05→20:20)
[2021-02-21] MEDS: FEBUXOSTAT 80 MG PO SCH (09:06)
--- NOTE | 2021-02-21 11:25 | P.PN ---
Subjective Patient is seen in follow-up for acute kidney injury and chronic kidney disease. Patient has chronic kidney disease stage IIIB with baseline creatinine near 2. Renal function a little worse compared to yesterday. Maintained on IV Lasix. Good urine output. Oral intake fair. Currently on BiPAP. Vital signs are stable. General: The patient appeared well nourished and normally developed. HEENT: On nasal cannula. LUNGS: Breath sounds decreased. HEART: Rate and Rhythm are regular. ABDOMEN: Soft, nontender. EXTREMITITES: Trace edema. Objective - Vital Signs Vital signs: Vital Signs Temp 98 F 02/21/21 08:00 Pulse 105 H 02/21/21 08:24 Resp 21 02/21/21 08:00 BP 116/80 02/21/21 08:00 Pulse Ox 92 L 02/21/21 08:14 Intake & Output 02/20/21 02/21/21 02/21/21 18:59 06:59 18:59 Intake Total 600 240 Output Total 975 850 150 Balance -375 -850 90 Weight 106.5 kg Intake: Oral 600 240 Output: Urine 425 600 150 Stool 550 Urine/Stool Mix 250 Other: Voiding Method Urinal Urinal Urinal - Labs CBC & Chem 7: 02/20/21 09:43 02/21/21 07:42 Labs: Abnormal Lab Results - Last 24 Hours (Table) 02/20/21 02/20/21 02/20/21 Range/Units 11:33 16:42 20:36 Sodium (137-145) mmol/L Chloride (98-107) mmol/L BUN (9-20) mg/dL Creatinine (0.66-1.25) mg/dL Glucose (74-99) mg/dL POC Glucose (mg/dL) 113 H 345 H 267 H (75-99) mg/dL 02/21/21 Range/Units 07:42 Sodium 135 L (137-145) mmol/L Chloride 97 L (98-107) mmol/L BUN 66 H (9-20) mg/dL Creatinine 2.00 H (0.66-1.25) mg/dL Glucose 73 L (74-99) mg/dL POC Glucose (mg/dL) (75-99) mg/dL Microbiology - Last 24 Hours (Table) 02/21/21 04:00 Sputum Culture - Preliminary Sputum Assessment and Plan Plan: Assessment: 1. Acute kidney injury mostly prerenal secondary to cardiorenal syndrome. Renal function a little worse today from diuresis. Creatinine 2.0 today. No hydronephrosis on kidney ultrasound. 2. Chronic kidney disease stage IIIB with baseline creatinine near 2 secondary to diabetic kidney disease and cardiorenal syndrome. 3. Acute on chronic diastolic CHF with moderate to severe tricuspid regurgitation, moderate mitral regurgitation. 4. Severe pulmonary hypertension. 5. Hypokalemia from diuresis. Replace. Better. 6. Hypomagnesemia from diuresis. Replaced. Better. Plan: I will change Lasix to 40 mg orally twice daily. Avoid nephrotoxins. Continue to monitor renal function and urine output.
[2021-02-21 11:59] LABS: Glucose,Whole Blood 215 mg/dL (75-99)
--- NOTE | 2021-02-21 12:57 | P.PN ---
Subjective Progress Note Date: 02/21/21 Faisal Andrade, is a 70-year-old male who presented to [facility] emergency room with a chief complaint of worsening shortness of breath over several weeks and cough and chest congestion, he was evaluated in the emergency room vital examination on presentation revealed a temperature of 96.7 also 130 respiration 26 blood pressure 142/87 pulse ox 96% on 3 L nasal cannula white blood count was 9.6 hemoglobin 14.1 platelet count 291 sodium 140 potassium 4.7 chloride 110 CO2 20 BUN 58 creatinine 2.4 troponin level was 0.044 BNP was elevated at 5717 Gu virus PCR was negative. Chest x-ray done in the emergency room revealed right lower lobe infiltrate suggestive of pneumonia, EKG revealed evidence of atrial fibrillation with rapid ventricular response. Patient was admitted to telemetry floor, he was started on IV antibiotics ceftriaxone and Zithromax, he was started on Cardizem drip, and IV Lasix, cardiology consultation and pulmonary consultation were requested. On 02/13/2021 patient was seen and examined on the medical floor, he is alert and oriented 3 in no apparent distress he is still complaining of shortness of breath however he noticed some improvement since yesterday he also had some occasional cough otherwise he denies any complaints there is no fever or chills no headache or dizziness no chest pain no nausea or vomiting no abdominal pain no diarrhea no blood in the stools no burning with urination no frequency or urgency and no hematuria he is maintained on IV Lasix his creatinine is going up chronic kidney disease will add a consult for nephrology at this time On 02/14/2021 patient currently resting on BiPAP. Patient does wake up quickly falls back to sleep. Per nursing staff patient remained short of breath with minimal activity. Patient remains on IV Lasix. IV Lasix have been decreased to 2 acute kidney injury. Cardiology, pulmonary and nephrology services are following. Ultrasound kidneys has been ordered per nephrology. At this time patient denies nausea vomiting or diarrhea. Patient denies any urinary burning or frequency On 02/15/2021 patient currently resting on BiPAP. Patient does wake up quickly falls back to sleep. Per nursing staff patient remained short of breath with minimal activity. he is still complaining of shortness of breath however he noticed some improvement since yesterday he also had some occasional cough otherwise he denies any complaints there is no fever or chills no headache or dizziness no chest pain no nausea or vomiting no abdominal pain no diarrhea no blood in the stools no burning with urination no frequency or urgency and no hematuria he is maintained on IV Lasix his creatinine is going up chronic kidney disease will add a consult for nephrology at this time. Patient remains on IV La six. IV Lasix have been decreased to 2 acute kidney injury. Cardiology, pulmonary and nephrology services are following. Ultrasound kidneys has been ordered per nephrology. At this time patient denies nausea vomiting or diarrhea. Patient denies any urinary burning or frequency On 02/16/2021 patient currently resting on BiPAP. Patient does wake up was able to keep breakfast. Patient maintained on IV Lasix 40 mg twice a day. Ultrasound of kidneys completed showing findings suggestive of medical renal disease. Repeat labs have been ordered. Patient denies chest pain. Patient denies nausea vomiting or diarrhea. Patient denies any urinary burning or frequency. Cardiology, pulmonary and nephrology services are following On 02/17/2021 patient's alert and oriented 3. Patient currently resting on BiPAP. Patient reports he is starting to feel better. Creatinine and bun trending down. Patient does report some shortness breath but does state this is improved. Patient denies chest pain. Patient denies nausea vomiting or diarrhea. Patient denies any urinary burning or frequency. Patient remains on azithromycin and Rocephin for IV antibiotics. IV Lasix 40 mg every 12 hours. Cardiology, pulmonary and nephrology following On 02/18/2021 patient was seen and examined on the medical floor he is alert and oriented 3 in no apparent distress he is still complaining of cough and shortness of breath otherwise he denies any complaints there is no fever or chills no headache or dizziness step pain no palpitation no nausea or vomiting no abdominal pain no diarrhea no blood in the stools no burning with urination no frequency or urgency and no hip On 02/19/2021 Patient was seen and examined on the medical floor, he is alert and oriented x 3 in no distress, he denies any complaints there is no fever or chills no headache or dizziness no chest pain no shortness of breath no palpitation no nausea or vomiting no abdominal pain no diarrhea no blood in the stools no burning with urination no frequency or urgency and no hematuria, there is no weakness or numbness in any of the extremities no change in vision speech or gait. He is still complaining of cough, will add Mucinex and try to obtain a sputum sample for culture. On 02/20/2021 Patient was seen and examined on the medical floor, he is alert and oriented x 3 in no distress, he denies any complaints there is no fever or chills no headache or dizziness no chest pain no shortness of breath no palpitation no cough no nausea or vomiting no abdominal pain no diarrhea no blood in the stools no burning with urination no frequency or urgency and no hematuria, there is no weakness or numbness in any of the extremities no change in vision speech or gait. Vital exam reveals a temperature of 97.9 pulse 1 or 2 respiration 20 lungs pressure 130/88 pulse ox 89% on 15 L high flow cannula. White blood count is 9.3 hemoglobin 12.9 platelet count 207 sodium 139 potassium 3.7 chloride 102 CO2 27 BUN 66 creatinine 1.75 On 02/21/2021 patient is alert and oriented 3 currently eating lunch. Patient denies chest pain or shortness breath. Patient denies nausea vomiting or diarrhea. Patient denies any urinary burning or frequency. Patient remains on 15 L high flow BiPAP at rest. Bun 66 creatinine 2.00. Pulmonary cardiology and nephrology services are following Objective - Vital Signs Vital signs: Vital Signs Temp 98 F 02/21/21 08:00 Pulse 106 H 02/21/21 12:00 Resp 20 02/21/21 12:00 BP 142/84 02/21/21 12:00 Pulse Ox 94 L 02/21/21 12:00 Intake & Output 02/20/21 02/21/21 02/21/21 18:59 06:59 18:59 Intake Total 600 240 Output Total 975 850 350 Balance -375 -850 -110 Weight 106.5 kg Intake: Oral 600 240 Output: Urine 425 600 150 Stool 550 200 Urine/Stool Mix 250 Other: Voiding Method Urinal Urinal Urinal - Exam In general patient is alert and oriented 3 in no apparent distress HEENT head normocephalic and atraumatic Neck is supple no JVD no goiter no lymphadenopathy Chest exam reveals crackles in both lung zhang no wheezing Cardiac exam reveals irregular heart sounds with tachycardia no murmurs Abdomen is soft nontender no organomegaly with normal bowel sounds Extremity exam reveals 1+ edema, there is a large scabbed ulcer on the left pretibial area with mild surrounding erythema Neurological examination reveals no gross focal deficit - Labs CBC & Chem 7: 02/20/21 09:43 02/21/21 07:42 Labs: Abnormal Lab Results - Last 24 Hours (Table) 02/20/21 02/20/21 02/21/21 Range/Units 16:42 20:36 07:42 Sodium 135 L (137-145) mmol/L Chloride 97 L (98-107) mmol/L BUN 66 H (9-20) mg/dL Creatinine 2.00 H (0.66-1.25) mg/dL Glucose 73 L (74-99) mg/dL POC Glucose (mg/dL) 345 H 267 H (75-99) mg/dL 02/21/21 Range/Units 11:57 Sodium (137-145) mmol/L Chloride (98-107) mmol/L BUN (9-20) mg/dL Creatinine (0.66-1.25) mg/dL Glucose (74-99) mg/dL POC Glucose (mg/dL) 215 H (75-99) mg/dL Microbiology - Last 24 Hours (Table) 02/21/21 04:00 Sputum Culture - Preliminary Sputum Assessment and Plan Plan: Acute pneumonia patient was started on IV Rocephin and IV Zithromax. Pulmonary services are following Atrial fibrillation with rapid ventricular response. Patient remains on eliquis for anticoagulation. Senia Raygoza. Cardiology services are following Acute congestive heart failure exacerbation with check echocardiogram cardiology consultation requested. Patient remains on IV Lasix. Patient has been transitioned to oral Lasix Underlying history of hypertension Underlying history of COPD Underlying history of coronary artery disease Underlying history of hyperlipidemia Underlying history of gout Acute kidney injury. Creatinine up to 3.16. Nephrology services are consulted. Ultrasound of kidneys completed showing findings suggestive of medical renal di sease. DVT prophylaxis eliquis. GI prophylaxis Protonix Patient remains on IV Rocephin and Zithromax Cardiology, pulmonary and nephrology services are following
--- NOTE | 2021-02-21 15:32 | P.PN ---
Subjective Progress Note Date: 02/21/21 Principal diagnosis: Atrial fibrillation, CHF. Patient was reevaluated today on 02/16/2021, he is basically the same today as he was yesterday, get short of breath with activity. He feels intermittently congested. Remains on antibiotics, bronchodilators and diuretics. When I saw the patient today he was on BiPAP, with IPAP of 12 EPAP of 6, he normally wears CPAP at home, and his FiO2 was 50%. Patient is saturating in the low 90s, 94%, he is hemodynamically stable, he is afebrile. Her on physical examination continues to have significant crackles and rhonchi bilaterally, will recommend follow-up chest x-ray on this patient tomorrow. Renal profile seems to be improving in spite of diuretics, creatinine is 2.4. Patient was reevaluated today on 02/17/2021, patient is feeling better, breathing easier, chest x-ray is looking a lot better. Patient remains on bronchod ilators, antibiotics, and diuretics, chest x-ray is significantly improved. Clinically the patient is feeling better. However he remains on 10 L high flow cannula, O2 sats is 92%. Blood pressure is 115/58. Patient is afebrile. CBC is relatively normal, electrolytes are normal BUN is 62 creatinine 2.12, steadily improving since admission patient had a creatinine as high as 3.18 a few days ago. Remains on Lasix at 40 mg IV push every 12 hours. Remains empirically on antibiotics and on bronchodilators Reevaluated today on 02/18/2021, patient is feeling much better from the pulmonary perspective. He has issues today with his colostomy bag, apparently it ruptured, and the nurses are helping him with his colostomy bag cleaning. At any rate pulmonary-jeong he is still on 10 L high flow he is saturating in the mid 90s. Patient is responding well to diuretics, bronchodilators, and he is also on antibiotics. Remains on Lasix at 40 mg IV push twice a day. Follow-up Chest x-ray showed significant improvement compared to his admission chest x- ray. CBC is relatively normal left lites are normal BUN is 62 creatinine 2.0, steadily improving from 3.18 only a few days ago. In spite of diuretics Progress note dated 02/19/2021. Currently, the patient is doing much better. The patient is on 10 L high flow O2. Occasionally, he is on BiPAP at 16/8. He's down 3.4 L. The patient still remains in evaluation. The patient has no major complaints today. He seems to be responding well to diuretics, bronchodilators, and antibiotics. His chest x- ray showed significant improvement since admission. White count 10.4, hemoglobin 11.9, hematocrit 36.9, platelet count 204,000. Sodium 136, potassium 3.2, chlorides 101, CO2 28, anion gap 7, BUN 66, and creatinine 1.80. Chest x- ray does show a pattern of CHF, with a right-sided pleural effusion. Progress note dated 02/20/2021. Currently, the patient appears to be doing much better. He's currently on saline at 20 mL an hour. His oxygen has been weaned down from 10 L high flow O2 6 L high flow. At nighttime, he uses BiPAP, with settings of IPAP 16, EPAP 8, and percent. He used to BiPAP last night intact. It does seem to help him. He has no particular complaints today. Lab data today shows a white count of 9.3, hemoglobin 12.9, hematocrit 40.3, and platelet count 207,000. Sodium potassium chloride CO2 all normal. Anion gap normal. BUN 66, with a creatinine 1.75. Chest x-ray from February 19 is reviewed. It does show a pattern of CHF. Progress note dated 02/21/2021. The patient is resting comfortably. He's getting saline at 20 cc an hour. He's currently on BiPAP with an IPAP of 16, EPAP of 8, and 50%. The patient denies any shortness of breath. He states that he is feeling better. Laboratory data today includes a sodium 135, potassium 3.7, chlorides 97, CO2 30, anion gap 8, BUN 66, and creatinine 2.0. Calcium 8.9, magnesium of 1.9. No recent chest x- ray. Last x-ray was done in February 19. Objective - Vital Signs Vital signs: Vital Signs Temp 98 F 02/21/21 08:00 Pulse 106 H 02/21/21 12:00 Resp 20 02/21/21 12:00 BP 142/84 02/21/21 12:00 Pulse Ox 94 L 02/21/21 12:00 Intake & Output 02/20/21 02/21/21 02/21/21 18:59 06:59 18:59 Intake Total 600 240 Output Total 975 850 350 Balance -375 -850 -110 Weight 106.5 kg Intake: Oral 600 240 Output: Urine 425 600 150 Stool 550 200 Urine/Stool Mix 250 Other: Voiding Method Urinal Urinal Urinal - Exam No acute distress, oriented 3. Currently, patient on BiPAP, with saturations of 94%. HEENT examination is grossly unremarkable. Neck supple. Full range of motion. No adenopathy thyromegaly or neck vein distention. Cardiovascular examination reveals an irregular rhythm and rate. S1-S2 normal. No S3 or S4. A 2/6 systolic murmur is noted. Heart rate is 101 bpm. Heart sounds are distant. Lungs reveal scattered bilateral rhonchi, and basilar crackles. No wheezes. Breath sounds equal bilaterally. Abdomen soft bowel sounds are heard. No masses or tenderness. Colostomy bag noted. Extremities are intact. No cyanosis or clubbing. Trace edema noted. Skin is without rash or lesion. Neurologic examination is brief but nonfocal. - Labs CBC & Chem 7: 02/20/21 09:43 02/21/21 07:42 Labs: Abnormal Lab Results - Last 24 Hours (Table) 02/20/21 02/20/21 02/21/21 Range/Units 16:42 20:36 07:42 Sodium 135 L (137-145) mmol/L Chloride 97 L (98-107) mmol/L BUN 66 H (9-20) mg/dL Creatinine 2.00 H (0.66-1.25) mg/dL Glucose 73 L (74-99) mg/dL POC Glucose (mg/dL) 345 H 267 H (75-99) mg/dL 02/21/21 Range/Units 11:57 Sodium (137-145) mmol/L Chloride (98-107) mmol/L BUN (9-20) mg/dL Creatinine (0.66-1.25) mg/dL Glucose (74-99) mg/dL POC Glucose (mg/dL) 215 H (75-99) mg/dL Microbiology - Last 24 Hours (Table) 02/21/21 04:00 Sputum Culture - Preliminary Sputum Assessment and Plan Assessment: Acute hypoxemic respiratory failure, secondary to possible right lower lobe pneumonia v. CHF. Atrial fibrillation with RVR. Chronic diastolic CHF, with right-sided pleural effusion. Status post bovine aortic valve replacement for aortic stenosis (2014). History of CVA. History of diabetes mellitus. History of hyperlipidemia. History of hypertension. Prior history of myocardial infarction. Obstructive sleep apnea syndrome, currently on CPAP. History of gout. Status post bowel resection for cancer, status post ileostomy. Chronic kidney disease. Severe pulmonary hypertension. Plan: Plan dated 02/13/2021. Currently, the patient is feeling better today than he did yesterday and our office. The patient is on Cardizem 50 mg an hour for his atrial fibrillation with rapid ventricular response. The patient was ready on Eliquis. For his right lower lobe pneumonia, the patient is on Rocephin, and azithromycin. No additional recommendations are made. We will continue to follow make recommendations were appropriate. The patient tested negative for coronavirus. Prognosis is guarded. Progress note dated 02/19/2021. Currently, the patient appears to be reasonably stable. The patient on 10 L high flow nasal O2. We will continue medications including Lasix, antibiotics, bronchodilators, etc. Currently, the patient's on 10 L high flow nasal O2. Saturations are reasonable. Additional recommendations and suggestions are forthcoming. Prognosis is guarded. The patient remains on Zithromax and Rocephin. We will continue to follow make recommendations where appropriate. Progress note dated 02/20/2021. All microbiology is as far negative. Laboratory data, and chest x-ray from February 19, are reviewed. The patient is doing better. Ocular requirements have been reduced. He remains on Zithromax as monotherapy for suspected pneumonia. The rest of his medications appear to be appropriate. He will continue using BiPAP at nighttime. Additional recommendations and suggestions are forthcoming. Prognosis is guarded. We will continue to follow this patient along with you. Progress note dated 02/21/2021. The patient seems to be doing relatively well. The patient is currently on BiPAP. He seems comfortable. Saturations are reasonable. He is getting saline at 20 mL an hour. I don't believe he needs antibiotic anymore. This will be discontinued. Additional recommendations and suggestions are forthcoming. He continues on Lasix 40 mg twice a day. We will continue to follow make recommendations where appropriate. Time with Patient: Less than 30
[2021-02-21] MEDS: HYDROcodone/APAP 10-325MG 1 EACH TAB PO PRN (16:41)
[2021-02-21] MEDS: FUROSEMIDE 40 MG TAB PO SCH (16:42)
[2021-02-21 16:51] LABS: Glucose,Whole Blood 159 mg/dL (75-99)
--- NOTE | 2021-02-21 17:16 | P.PN ---
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 He follows in the office with Dr. Bolaños. We have been asked to see in consultation for new onset atrial fibrillation and elevated troponins. Troponins 0.049 and 0.044, and T proBNP 5770. Current home daily cardiac medications include Eliquis 2.5 mg twice a day, Lasix 40 mg twice a day, Toprol 50 mg twice a day, simvastatin 20 mg daily and amlodipine 5 mg daily. Most recent echocardiogram obtained in the office April 2020 revealed preserved LV systolic function with ejection fraction 55%, mild to moderate mitral regurgitation, normally functioning prosthetic aortic valve with a mean gradient across the valve of 21 mmHg, mild to moderate tricuspid regurgitation and mild aortic regurgitation noted. Most recent stress test performed in the office in 2018 with a Lexiscan stress test that was negative for stress-induced ischemia. Echocardiogram revealed left ventricle systolic function EF between 5560 percent, RV severely dilated, LA severely dilated, RA is moderately enlarged, mild stenosis of the prior no prosthetic aortic valve with a mean gradient 19 mmHg, mild mitral stenosis, moderate MR, moderate to severe TR, severe pulmonary hypertension Patient was started on IV Lasix and was on BIPAP to maintain oxygen saturations. 02/21/21: Patient seen and examined at bedside. States that he had a rough night last night. She did not sleep well. He continues to be short of breath. State his breathing has improved. No complaints at this time. BP 142/84, HR 90-100s, afebrile, Requiring high flow nasal cannula to maintain oxygen saturations. and Requiring BIPAP Sodium 135, potassium 3.7, serum creatinine 2.00 (1.75 yesterday), magnesium 1.9. Telemetry reviewed, patient continued to be in atrial fibrillation. patient's ventricular rates are currently controlled heart rate 70s to 100 PHYSICAL EXAMINATION Vitals reviewed CONSTITUTIONAL: No apparent distress. HEENT: Head is normocephalic. No JVD. No carotid bruit. CHEST EXAMINATION: Bibasilar coarse rales, scattered rhonchi, no wheezes. HEART EXAMINATION: Irregular rate and rhythm. S1, S2 heard. Systolic ejection murmur at the base ABDOMEN: Soft, nontender. Positive bowel sounds. EXTREMITIES: 2+ peripheral pulses, 2+ bilateral lower extremity pitting edema and no calf tenderness. +right foot and left anterior montejo ulcers NEUROLOGIC EXAMINATION: Patient is awake, alert and oriented x3. ASSESSMENT Paroxysmal atrial fibrillation with rapid ventricular rate Acute on chronic diastolic heart failure Hypoxia Right lower lobe pnuemonia Troponin leak, likely related to renal function. This flat appearance with no significant rise and fall pattern suggestive of myocardial injury. Valvular heart disease status post tissue aortic valve replacement 2014 Chronic kidney disease Hypertension Diabetes mellitus with hypoglycemia on admission Dyslipidemia MARIANA, improved, at baseline Mild pauses up to 2.4 seconds while sleeping when in Afib, asymptomatic Severe pulmonary hypertension with RSVP 76 Chronic LE edema, may be a component of chronic venous insufficiency Bilateral nonhealing left foot and right montejo ulcers Hypomagnesia- replaced PLAN Continue Eliquis 5mg bid Nephrology following, recommendations appreciated. Pulmonary following, recommendations appreciated - patient is currently being treated with azithromycin and IV Rocephin Continue Cardizem, Metoprolol, better rate controlled. Continue Lasix PO 40mg BID Monitor renal function and electrolytes. Further recommendations based on clinical course Objective - Vital Signs Vital signs: Vital Signs Temp 98 F 02/21/21 08:00 Pulse 90 02/21/21 16:00 Resp 24 02/21/21 16:00 BP 139/83 02/21/21 16:00 Pulse Ox 99 02/21/21 16:00 Intake & Output 02/20/21 02/21/21 02/21/21 18:59 06:59 18:59 Intake Total 600 240 Output Total 975 850 350 Balance -375 -850 -110 Weight 106.5 kg Intake: Oral 600 240 Output: Urine 425 600 150 Stool 550 200 Urine/Stool Mix 250 Other: Voiding Method Urinal Urinal Urinal - Labs CBC & Chem 7: 02/20/21 09:43 02/21/21 07:42 Labs: Abnormal Lab Results - Last 24 Hours (Table) 02/20/21 02/21/21 02/21/21 Range/Units 20:36 07:42 11:57 Sodium 135 L (137-145) mmol/L Chloride 97 L (98-107) mmol/L BUN 66 H (9-20) mg/dL Creatinine 2.00 H (0.66-1.25) mg/dL Glucose 73 L (74-99) mg/dL POC Glucose (mg/dL) 267 H 215 H (75-99) mg/dL 02/21/21 Range/Units 16:49 Sodium (137-145) mmol/L Chloride (98-107) mmol/L BUN (9-20) mg/dL Creatinine (0.66-1.25) mg/dL Glucose (74-99) mg/dL POC Glucose (mg/dL) 159 H (75-99) mg/dL Microbiology - Last 24 Hours (Table) 02/21/21 04:00 Gram Stain - Preliminary Sputum Sputum Culture - Preliminary
[2021-02-21 20:12] LABS: Glucose,Whole Blood 252 mg/dL (75-99)
[2021-02-21] MEDS: INSULIN DETEMIR (LEVEMIR) 100 UNIT/ML SYR SQ SCH (20:21)
[2021-02-21] MEDS: LATANOPROST 0.005% OPHTH DROPS 2.5 ML BTL BOTH EYES SCH (20:22)
[2021-02-22] MEDS: PANTOPRAZOLE 40 MG TABLET PO SCH (06:35)
[2021-02-22] MEDS: INSULIN ASPART (NovoLOG) 100 UNIT/ML VIAL SQ SCH ×4 (06:35→21:02)
[2021-02-22 06:36] LABS: Glucose,Whole Blood 83 mg/dL (75-99)
[2021-02-22] MEDS: APIXABAN 5 MG TAB PO SCH ×2 (08:25→19:59)
[2021-02-22] MEDS: FENOFIBRATE 160 MG TAB PO SCH (08:25)
[2021-02-22] MEDS: METOPROLOL SUCCINATE (ER) 50 MG TAB.ER.24H PO SCH ×2 (08:25→19:59)
[2021-02-22] MEDS: ATORVASTATIN 10 MG TAB PO SCH (08:25)
[2021-02-22] MEDS: FUROSEMIDE 40 MG TAB PO SCH ×2 (08:25→17:38)
[2021-02-22] MEDS: HYDROcodone/APAP 10-325MG 1 EACH TAB PO PRN ×3 (08:25→21:59)
[2021-02-22] MEDS: DILTIAZEM ORAL 30 MG TAB PO SCH ×3 (08:25→19:59)
[2021-02-22 11:07] LABS: Basophils # (A) 0.1 k/uL (0-0.2); Basophils % (A) 1 %; Eosinophils # (A) 0.3 k/uL (0-0.7); Eosinophils % (A) 3 %; HGB 12.4 gm/dL (13.0-17.5); Hypochromasia Slight; Lymphocytes # (A) 1.4 k/uL (1.0-4.8); Lymphocytes % (A) 14 %; MCH 28.6 pg (25.0-35.0); MCHC 32.7 g/dL (31.0-37.0); MCV 87.5 fL (80.0-100.0); Mean Platelet Volume 7.9; Monocytes # (A) 0.7 k/uL (0-1.0); Monocytes % (A) 7 %; Neutrophils # (A) 7.2 k/uL (1.3-7.7); Neutrophils % (A) 74 %; Platelet Count 226 k/uL (150-450); RBC 4.35 m/uL (4.30-5.90); RDW 15.3 % (11.5-15.5); WBC 9.7 k/uL (3.8-10.6)
[2021-02-22 11:30] LABS: Albumin 3.1 g/dL (3.5-5.0); Potassium 4.5 mmol/L (3.5-5.1); Total Bilirubin 0.5 mg/dL (0.2-1.3); Total Protein 5.9 g/dL (6.3-8.2)
--- NOTE | 2021-02-22 11:44 | P.PN ---
Subjective Patient is seen in follow-up for acute kidney injury and chronic kidney disease. Patient has chronic kidney disease stage IIIB with baseline creatinine near 2. Renal function better. Maintained on oral Lasix. Good urine output. Oral intake fair. Currently on BiPAP. Vital signs are stable. General: The patient appeared well nourished and normally developed. HEENT: On nasal cannula. LUNGS: Breath sounds decreased. HEART: Rate and Rhythm are regular. ABDOMEN: Soft, nontender. EXTREMITITES: Trace edema. Objective - Vital Signs Vital signs: Vital Signs Temp 98 F 02/22/21 09:14 Pulse 92 02/22/21 09:14 Resp 17 02/22/21 09:14 BP 152/72 02/22/21 09:14 Pulse Ox 95 02/22/21 09:14 Intake & Output 02/21/21 02/22/21 02/22/21 18:59 06:59 18:59 Intake Total 240 220 338 Output Total 775 800 Balance -535 -580 338 Weight 47.5 kg Intake: Oral 240 220 338 Output: Urine 275 400 Stool 500 400 Other: Voiding Method Urinal Urinal Toilet - Labs CBC & Chem 7: 02/22/21 10:43 02/22/21 10:43 Labs: Abnormal Lab Results - Last 24 Hours (Table) 02/21/21 02/21/21 02/21/21 Range/Units 11:57 16:49 20:10 Hgb (13.0-17.5) gm/dL Hct (39.0-53.0) % Sodium (137-145) mmol/L Chloride (98-107) mmol/L BUN (9-20) mg/dL Creatinine (0.66-1.25) mg/dL Glucose (74-99) mg/dL POC Glucose (mg/dL) 215 H 159 H 252 H (75-99) mg/dL Total Protein (6.3-8.2) g/dL Albumin (3.5-5.0) g/dL 02/22/21 02/22/21 Range/Units 10:43 10:43 Hgb 12.4 L (13.0-17.5) gm/dL Hct 38.0 L (39.0-53.0) % Sodium 133 L (137-145) mmol/L Chloride 97 L (98-107) mmol/L BUN 62 H (9-20) mg/dL Creatinine 1.82 H (0.66-1.25) mg/dL Glucose 151 H (74-99) mg/dL POC Glucose (mg/dL) (75-99) mg/dL Total Protein 5.9 L (6.3-8.2) g/dL Albumin 3.1 L (3.5-5.0) g/dL Microbiology - Last 24 Hours (Table) 02/21/21 04:00 Gram Stain - Preliminary Sputum Sputum Culture - Preliminary Assessment and Plan Plan: Assessment: 1. Acute kidney injury mostly prerenal secondary to cardiorenal syndrome. Renal function better. Creatinine 1.82 today. No hydronephrosis on kidney ul trasound. 2. Chronic kidney disease stage IIIB with baseline creatinine near 2 secondary to diabetic kidney disease and cardiorenal syndrome. 3. Acute on chronic diastolic CHF with moderate to severe tricuspid regurgitation, moderate mitral regurgitation. 4. Severe pulmonary hypertension. 5. Hypokalemia from diuresis. Replace. Better. 6. Hypomagnesemia from diuresis. Replaced. Better. Plan: Maintain oral Lasix. Avoid nephrotoxins. Continue to monitor renal function and urine output.
[2021-02-22 11:50] LABS: Glucose,Whole Blood 145 mg/dL (75-99)
[2021-02-22] MEDS: guaiFENesin 600 MG TABLET.ER PO SCH ×2 (12:16→19:58)
[2021-02-22] MEDS: AZITHROMYCIN 500 MG TAB PO SCH (12:16)
--- NOTE | 2021-02-22 12:20 | XR ---
EXAMINATION TYPE: XR chest 1V portable DATE OF EXAM: 02/22/2021 COMPARISON: Chest x-ray 02/19/2021 HISTORY: Shortness of breath TECHNIQUE: Single frontal view of the chest is obtained. FINDINGS: There is similar bibasilar increased attenuation within the lungs. No evident pneumothorax . Cardiac mediastinal silhouette is enlarged. Interstitium may be increased, patient is post median s ternotomy. Aorta is dense. There are overlying leads. IMPRESSION: There is improvement in the interstitium, volume status, persistent basilar density, con vice president research edema, difficult to exclude effusion, pneumonia
[2021-02-22] MEDS: FEBUXOSTAT 80 MG PO SCH (12:22)
--- NOTE | 2021-02-22 14:11 | P.PN ---
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 He follows in the office with Dr. Bolaños. We have been asked to see in consultation for new onset atrial fibrillation and elevated troponins. Troponins 0.049 and 0.044, and T proBNP 5770. Current home daily cardiac medications include Eliquis 2.5 mg twice a day, Lasix 40 mg twice a day, Toprol 50 mg twice a day, simvastatin 20 mg daily and amlodipine 5 mg daily. Most recent echocardiogram obtained in the office April 2020 revealed preserved LV systolic function with ejection fraction 55%, mild to moderate mitral regurgitation, normally functioning prosthetic aortic valve with a mean gradient across the valve of 21 mmHg, mild to moderate tricuspid regurgitation and mild aortic regurgitation noted. Most recent stress test performed in the office in 2018 with a Lexiscan stress test that was negative for stress-induced ischemia. Echocardiogram revealed left ventricle systolic function EF between 5560 percent, RV severely dilated, LA severely dilated, RA is moderately enlarged, mild stenosis of the prior no prosthetic aortic valve with a mean gradient 19 mmHg, mild mitral stenosis, moderate MR, moderate to severe TR, severe pulmonary hypertension Patient was started on IV Lasix and was on BIPAP to maintain oxygen saturations. 02/22/21: Patient seen and examined at bedside. He continues to be short of breath. State his breathing has not really improved. No complaints at this time. BP 152/72, HR 70-100, afebrile, Requiring high flow nasal cannula to maintain oxygen saturations. and Requiring BIPAP Telemetry reviewed, patient continued to be in atrial fibrillation. patient's ventricular rates are currently controlled heart rate 70s to 100. Patient continues to have good urine output over 1L urine output over the past 24 hours. PHYSICAL EXAMINATION Vitals reviewed CONSTITUTIONAL: No apparent distress. HEENT: Head is normocephalic. No JVD. No carotid bruit. CHEST EXAMINATION: Bibasilar coarse rales, scattered rhonchi, no wheezes. HEART EXAMINATION: Irregular rate and rhythm. S1, S2 heard. Systolic ejection murmur at the base ABDOMEN: Soft, nontender. Positive bowel sounds. EXTREMITIES: 2+ peripheral pulses, 2+ bilateral lower extremity pitting edema and no calf tenderness. +right foot and left anterior montejo ulcers NEUROLOGIC EXAMINATION: Patient is awake, alert and oriented x3. ASSESSMENT Paroxysmal atrial fibrillation with rapid ventricular rate Acute on chronic diastolic heart failure Hypoxia Right lower lobe pnuemonia Troponin leak, likely related to renal function. This flat appearance with no significant rise and fall pattern suggestive of myocardial injury. Valvular heart disease status post tissue aortic valve replacement 2014 Chronic kidney disease Hypertension Diabetes mellitus with hypoglycemia on admission Dyslipidemia MARIANA, improved, at baseline Mild pauses up to 2.4 seconds while sleeping when in Afib, asymptomatic Severe pulmonary hypertension with RSVP 76 Chronic LE edema, may be a component of chronic venous insufficiency Bilateral nonhealing left foot and right montejo ulcers Hypomagnesia- replaced PLAN Will increase patient's Cardizem to 60mg TID Continue Metoprolol Continue Eliquis 5mg bid Nephrology following, recommendations appreciated. Pulmonary following, recommendations appreciated - patient is currently being treated with azithromycin and IV Rocephin Monitor renal function and electrolytes. Further recommendations based on clinical course Objective - Vital Signs Vital signs: Vital Signs Temp 98 F 02/22/21 12:51 Pulse 77 02/22/21 12:51 Resp 17 02/22/21 12:51 BP 122/78 02/22/21 12:51 Pulse Ox 97 02/22/21 12:51 Intake & Output 02/21/21 02/22/21 02/22/21 18:59 06:59 18:59 Intake Total 240 220 578 Output Total 775 800 550 Balance -535 -580 28 Weight 47.5 kg Intake: Oral 240 220 578 Output: Urine 275 400 350 Stool 500 400 200 Other: Voiding Method Urinal Urinal Toilet - Labs CBC & Chem 7: 02/22/21 10:43 02/22/21 10:43 Labs: Abnormal Lab Results - Last 24 Hours (Table) 02/21/21 02/21/21 02/22/21 Range/Units 16:49 20:10 10:43 Hgb 12.4 L (13.0-17.5) gm/dL Hct 38.0 L (39.0-53.0) % Sodium (137-145) mmol/L Chloride (98-107) mmol/L BUN (9-20) mg/dL Creatinine (0.66-1.25) mg/dL Glucose (74-99) mg/dL POC Glucose (mg/dL) 159 H 252 H (75-99) mg/dL Total Protein (6.3-8.2) g/dL Albumin (3.5-5.0) g/dL 02/22/21 02/22/21 Range/Units 10:43 11:48 Hgb (13.0-17.5) gm/dL Hct (39.0-53.0) % Sodium 133 L (137-145) mmol/L Chloride 97 L (98-107) mmol/L BUN 62 H (9-20) mg/dL Creatinine 1.82 H (0.66-1.25) mg/dL Glucose 151 H (74-99) mg/dL POC Glucose (mg/dL) 145 H (75-99) mg/dL Total Protein 5.9 L (6.3-8.2) g/dL Albumin 3.1 L (3.5-5.0) g/dL Microbiology - Last 24 Hours (Table) 02/21/21 04:00 Gram Stain - Preliminary Sputum Sputum Culture - Preliminary
--- NOTE | 2021-02-22 14:26 | P.PN ---
Subjective Progress Note Date: 02/22/21 Principal diagnosis: Atrial fibrillation, CHF. Patient was reevaluated today on 02/16/2021, he is basically the same today as he was yesterday, get short of breath with activity. He feels intermittently congested. Remains on antibiotics, bronchodilators and diuretics. When I saw the patient today he was on BiPAP, with IPAP of 12 EPAP of 6, he normally wears CPAP at home, and his FiO2 was 50%. Patient is saturating in the low 90s, 94%, he is hemodynamically stable, he is afebrile. Her on physical examination continues to have significant crackles and rhonchi bilaterally, will recommend follow-up chest x-ray on this patient tomorrow. Renal profile seems to be improving in spite of diuretics, creatinine is 2.4. Patient was reevaluated today on 02/17/2021, patient is feeling better, breathing easier, chest x-ray is looking a lot better. Patient remains on bronchod ilators, antibiotics, and diuretics, chest x-ray is significantly improved. Clinically the patient is feeling better. However he remains on 10 L high flow cannula, O2 sats is 92%. Blood pressure is 115/58. Patient is afebrile. CBC is relatively normal, electrolytes are normal BUN is 62 creatinine 2.12, steadily improving since admission patient had a creatinine as high as 3.18 a few days ago. Remains on Lasix at 40 mg IV push every 12 hours. Remains empirically on antibiotics and on bronchodilators Reevaluated today on 02/18/2021, patient is feeling much better from the pulmonary perspective. He has issues today with his colostomy bag, apparently it ruptured, and the nurses are helping him with his colostomy bag cleaning. At any rate pulmonary-jeong he is still on 10 L high flow he is saturating in the mid 90s. Patient is responding well to diuretics, bronchodilators, and he is also on antibiotics. Remains on Lasix at 40 mg IV push twice a day. Follow-up Chest x-ray showed significant improvement compared to his admission chest x- ray. CBC is relatively normal left lites are normal BUN is 62 creatinine 2.0, steadily improving from 3.18 only a few days ago. In spite of diuretics Progress note dated 02/19/2021. Currently, the patient is doing much better. The patient is on 10 L high flow O2. Occasionally, he is on BiPAP at 16/8. He's down 3.4 L. The patient still remains in evaluation. The patient has no major complaints today. He seems to be responding well to diuretics, bronchodilators, and antibiotics. His chest x- ray showed significant improvement since admission. White count 10.4, hemoglobin 11.9, hematocrit 36.9, platelet count 204,000. Sodium 136, potassium 3.2, chlorides 101, CO2 28, anion gap 7, BUN 66, and creatinine 1.80. Chest x- ray does show a pattern of CHF, with a right-sided pleural effusion. Progress note dated 02/20/2021. Currently, the patient appears to be doing much better. He's currently on saline at 20 mL an hour. His oxygen has been weaned down from 10 L high flow O2 6 L high flow. At nighttime, he uses BiPAP, with settings of IPAP 16, EPAP 8, and percent. He used to BiPAP last night intact. It does seem to help him. He has no particular complaints today. Lab data today shows a white count of 9.3, hemoglobin 12.9, hematocrit 40.3, and platelet count 207,000. Sodium potassium chloride CO2 all normal. Anion gap normal. BUN 66, with a creatinine 1.75. Chest x-ray from February 19 is reviewed. It does show a pattern of CHF. Progress note dated 02/21/2021. The patient is resting comfortably. He's getting saline at 20 cc an hour. He's currently on BiPAP with an IPAP of 16, EPAP of 8, and 50%. The patient denies any shortness of breath. He states that he is feeling better. Laboratory data today includes a sodium 135, potassium 3.7, chlorides 97, CO2 30, anion gap 8, BUN 66, and creatinine 2.0. Calcium 8.9, magnesium of 1.9. No recent chest x- ray. Last x-ray was done in February 19. Progress note dated 02/22/2021 Currently, the patient's doing well. He seen again today in room 373. He is getting saline at 20 mL an hour. Currently, he's on 10 L high flow nasal O2. His BiPAP settings are 16/8 and 50%. He uses a BiPAP primarily at nighttime, but sometimes during the daytime as well. His nurses currently in the room with him. Confirms the fact that he is doing better. Labs today include a white count 9.7, hemoglobin 12.4, hematocrit 38, and platelet count 226,000. Sodium 133, potassium 4.5, chlorides 97, CO2 28, anion gap 8, BUN 62, and creatinine 1.82. Chest x-ray from February 22 is much improved. The patient's fluid overload state, is improved. Objective - Vital Signs Vital signs: Vital Signs Temp 98 F 02/22/21 12:51 Pulse 77 02/22/21 12:51 Resp 17 02/22/21 12:51 BP 122/78 02/22/21 12:51 Pulse Ox 97 02/22/21 12:51 Intake & Output 02/21/21 02/22/21 02/22/21 18:59 06:59 18:59 Intake Total 240 220 578 Output Total 775 800 550 Balance -535 -580 28 Weight 47.5 kg Intake: Oral 240 220 578 Output: Urine 275 400 350 Stool 500 400 200 Other: Voiding Method Urinal Urinal Toilet - Exam No acute distress, oriented 3. Currently on 10 L high flow O2, with saturations of 97%. HEENT examination is grossly unremarkable. Neck supple. Full range of motion. No adenopathy thyromegaly or neck vein distention. Cardiovascular examination reveals an irregular rhythm and rate. S1-S2 normal. No S3 or S4. A 2/6 systolic murmur is noted. Heart rate is 77 bpm. Heart sounds are distant. Lungs reveal scattered bilateral rhonchi, and basilar crackles. No wheezes. Breath sounds equal bilaterally. Abdomen soft bowel sounds are heard. No masses or tenderness. Colostomy bag noted. Extremities are intact. No cyanosis or clubbing. Trace edema noted. Skin is without rash or lesion. Neurologic examination is brief but nonfocal. - Labs CBC & Chem 7: 02/22/21 10:43 02/22/21 10:43 Labs: Abnormal Lab Results - Last 24 Hours (Table) 02/21/21 02/21/21 02/22/21 Range/Units 16:49 20:10 10:43 Hgb 12.4 L (13.0-17.5) gm/dL Hct 38.0 L (39.0-53.0) % Sodium (137-145) mmol/L Chloride (98-107) mmol/L BUN (9-20) mg/dL Creatinine (0.66-1.25) mg/dL Glucose (74-99) mg/dL POC Glucose (mg/dL) 159 H 252 H (75-99) mg/dL Total Protein (6.3-8.2) g/dL Albumin (3.5-5.0) g/dL 02/22/21 02/22/21 Range/Units 10:43 11:48 Hgb (13.0-17.5) gm/dL Hct (39.0-53.0) % Sodium 133 L (137-145) mmol/L Chloride 97 L (98-107) mmol/L BUN 62 H (9-20) mg/dL Creatinine 1.82 H (0.66-1.25) mg/dL Glucose 151 H (74-99) mg/dL POC Glucose (mg/dL) 145 H (75-99) mg/dL Total Protein 5.9 L (6.3-8.2) g/dL Albumin 3.1 L (3.5-5.0) g/dL Microbiology - Last 24 Hours (Table) 02/21/21 04:00 Gram Stain - Preliminary Sputum Sputum Culture - Preliminary Assessment and Plan Assessment: Acute hypoxemic respiratory failure, secondary to possible right lower lobe pneumonia v. CHF. Atrial fibrillation with RVR. Chronic diastolic CHF, with right-sided pleural effusion. Status post bovine aortic valve replacement for aortic stenosis (2014). History of CVA. History of diabetes mellitus. History of hyperlipidemia. History of hypertension. Prior history of myocardial infarction. Obstructive sleep apnea syndrome, currently on CPAP. History of gout. Status post bowel resection for cancer, status post ileostomy. Chronic kidney disease. Severe pulmonary hypertension. Plan: Plan dated 02/13/2021. Currently, the patient is feeling better today than he did yesterday and our office. The patient is on Cardizem 50 mg an hour for his atrial fibrillation with rapid ventricular response. The patient was ready on Eliquis. For his right lower lobe pneumonia, the patient is on Rocephin, and azithromycin. No additional recommendations are made. We will continue to follow make recommendations were appropriate. The patient tested negative for coronavirus. Prognosis is guarded. Progress note dated 02/19/2021. Currently, the patient appears to be reasonably stable. The patient on 10 L high flow nasal O2. We will continue medications including Lasix, antibiotics, bronchodilators, etc. Currently, the patient's on 10 L high flow nasal O2. Saturations are reasonable. Additional recommendations and suggestions are forthcoming. Prognosis is guarded. The patient remains on Zithromax and Rocephin. We will continue to follow make recommendations where appropriate. Progress note dated 02/20/2021. All microbiology is as far negative. Laboratory data, and chest x-ray from February 19, are reviewed. The patient is doing better. Ocular requirements have been reduced. He remains on Zithromax as monotherapy for suspected pneumonia. The rest of his medications appear to be appropriate. He will continue using BiPAP at nighttime. Additional recommendations and suggestions are forthcoming. Prognosis is guarded. We will continue to follow this patient along with you. Progress note dated 02/21/2021. The patient seems to be doing relatively well. The patient is currently on BiPAP. He seems comfortable. Saturations are reasonable. He is getting saline at 20 mL an hour. I don't believe he needs antibiotic anymore. This will be discontinued. Additional recommendations and suggestions are forthcoming. He continues on Lasix 40 mg twice a day. We will continue to follow make recommendations where appropriate. Progress note dated 02/22/2021. Clinically, the patient feels much improved. The patient states that his breathing is much better. His chest x-ray is also improved. The patient is on 10 L high flow nasal O2, and occasionally, but mostly at nighttime, we'll use BiPAP. He denies any coughing or phlegm production. No fever or chills. He denies any chest pain or chest discomfort. He continues on Lasix, twice a day. Thus far, blood and sputum sampling is negative. We will continue to follow. Labs, x-rays, and medications are all reviewed. We will see the patient only as needed moving forward. Time with Patient: Less than 30
[2021-02-22 17:03] LABS: Glucose,Whole Blood 231 mg/dL (75-99)
[2021-02-22] MEDS: LATANOPROST 0.005% OPHTH DROPS 2.5 ML BTL BOTH EYES SCH (19:59)
[2021-02-22 20:18] LABS: Glucose,Whole Blood 227 mg/dL (75-99)
[2021-02-22] MEDS: INSULIN DETEMIR (LEVEMIR) 100 UNIT/ML SYR SQ SCH (21:03)
[2021-02-22] MEDS: CYCLOBENZAPRINE 10 MG TAB PO PRN (21:59)
[2021-02-23] MEDS: INSULIN ASPART (NovoLOG) 100 UNIT/ML VIAL SQ SCH ×4 (06:15→21:01)
[2021-02-23 06:18] LABS: Glucose,Whole Blood 133 mg/dL (75-99)
[2021-02-23] MEDS: PANTOPRAZOLE 40 MG TABLET PO SCH (06:18)
[2021-02-23] MEDS: DILTIAZEM ORAL 30 MG TAB PO SCH ×3 (08:37→21:01)
[2021-02-23] MEDS: HYDROcodone/APAP 10-325MG 1 EACH TAB PO PRN ×3 (08:37→21:02)
[2021-02-23] MEDS: METOPROLOL SUCCINATE (ER) 50 MG TAB.ER.24H PO SCH ×2 (08:38→21:01)
[2021-02-23] MEDS: guaiFENesin 600 MG TABLET.ER PO SCH ×2 (08:38→21:01)
[2021-02-23] MEDS: AZITHROMYCIN 500 MG TAB PO SCH (08:38)
[2021-02-23] MEDS: APIXABAN 5 MG TAB PO SCH ×2 (08:38→21:01)
[2021-02-23] MEDS: ATORVASTATIN 10 MG TAB PO SCH (08:38)
[2021-02-23] MEDS: FENOFIBRATE 160 MG TAB PO SCH (08:38)
[2021-02-23] MEDS: FUROSEMIDE 40 MG TAB PO SCH ×2 (08:38→17:01)
[2021-02-23] MEDS: FEBUXOSTAT 80 MG PO SCH (08:44)
[2021-02-23 09:02] LABS: Albumin 3.3 g/dL (3.5-5.0); Calcium 9.2 mg/dL (8.4-10.2); Magnesium 1.5 mg/dL (1.6-2.3); Potassium 4.9 mmol/L (3.5-5.1); Total Bilirubin 0.6 mg/dL (0.2-1.3); Total Protein 6.3 g/dL (6.3-8.2)
[2021-02-23 09:18] LABS: Basophils # (A) 0.1 k/uL (0-0.2); Basophils % (A) 1 %; Eosinophils # (A) 0.3 k/uL (0-0.7); Eosinophils % (A) 3 %; HCT 41.5 % (39.0-53.0); HGB 12.6 gm/dL (13.0-17.5); Hypochromasia Slight; Lymphocytes # (A) 1.7 k/uL (1.0-4.8); Lymphocytes % (A) 16 %; MCH 27.1 pg (25.0-35.0); MCHC 30.2 g/dL (31.0-37.0); MCV 89.8 fL (80.0-100.0); Mean Platelet Volume 8.1; Monocytes # (A) 0.7 k/uL (0-1.0); Monocytes % (A) 7 %; Neutrophils # (A) 7.7 k/uL (1.3-7.7); Neutrophils % (A) 73 %; Platelet Count 262 k/uL (150-450); RBC 4.63 m/uL (4.30-5.90); RDW 15.6 % (11.5-15.5); WBC 10.5 k/uL (3.8-10.6)
--- NOTE | 2021-02-23 09:48 | P.PN ---
Subjective Progress Note Date: 02/23/21 Faisal Andrade, is a 70-year-old male who presented to [facility] emergency room with a chief complaint of worsening shortness of breath over several weeks and cough and chest congestion, he was evaluated in the emergency room vital examination on presentation revealed a temperature of 96.7 also 130 respiration 26 blood pressure 142/87 pulse ox 96% on 3 L nasal cannula white blood count was 9.6 hemoglobin 14.1 platelet count 291 sodium 140 potassium 4.7 chloride 110 CO2 20 BUN 58 creatinine 2.4 troponin level was 0.044 BNP was elevated at 5717 Gu virus PCR was negative. Chest x-ray done in the emergency room revealed right lower lobe infiltrate suggestive of pneumonia, EKG revealed evidence of atrial fibrillation with rapid ventricular response. Patient was admitted to telemetry floor, he was started on IV antibiotics ceftriaxone and Zithromax, he was started on Cardizem drip, and IV Lasix, cardiology consultation and pulmonary consultation were requested. On 02/13/2021 patient was seen and examined on the medical floor, he is alert and oriented 3 in no apparent distress he is still complaining of shortness of breath however he noticed some improvement since yesterday he also had some occasional cough otherwise he denies any complaints there is no fever or chills no headache or dizziness no chest pain no nausea or vomiting no abdominal pain no diarrhea no blood in the stools no burning with urination no frequency or urgency and no hematuria he is maintained on IV Lasix his creatinine is going up chronic kidney disease will add a consult for nephrology at this time On 02/14/2021 patient currently resting on BiPAP. Patient does wake up quickly falls back to sleep. Per nursing staff patient remained short of breath with minimal activity. Patient remains on IV Lasix. IV Lasix have been decreased to 2 acute kidney injury. Cardiology, pulmonary and nephrology services are following. Ultrasound kidneys has been ordered per nephrology. At this time patient denies nausea vomiting or diarrhea. Patient denies any urinary burning or frequency On 02/15/2021 patient currently resting on BiPAP. Patient does wake up quickly falls back to sleep. Per nursing staff patient remained short of breath with minimal activity. he is still complaining of shortness of breath however he noticed some improvement since yesterday he also had some occasional cough otherwise he denies any complaints there is no fever or chills no headache or dizziness no chest pain no nausea or vomiting no abdominal pain no diarrhea no blood in the stools no burning with urination no frequency or urgency and no hematuria he is maintained on IV Lasix his creatinine is going up chronic kidney disease will add a consult for nephrology at this time. Patient remains on IV La six. IV Lasix have been decreased to 2 acute kidney injury. Cardiology, pulmonary and nephrology services are following. Ultrasound kidneys has been ordered per nephrology. At this time patient denies nausea vomiting or diarrhea. Patient denies any urinary burning or frequency On 02/16/2021 patient currently resting on BiPAP. Patient does wake up was able to keep breakfast. Patient maintained on IV Lasix 40 mg twice a day. Ultrasound of kidneys completed showing findings suggestive of medical renal disease. Repeat labs have been ordered. Patient denies chest pain. Patient denies nausea vomiting or diarrhea. Patient denies any urinary burning or frequency. Cardiology, pulmonary and nephrology services are following On 02/17/2021 patient's alert and oriented 3. Patient currently resting on BiPAP. Patient reports he is starting to feel better. Creatinine and bun trending down. Patient does report some shortness breath but does state this is improved. Patient denies chest pain. Patient denies nausea vomiting or diarrhea. Patient denies any urinary burning or frequency. Patient remains on azithromycin and Rocephin for IV antibiotics. IV Lasix 40 mg every 12 hours. Cardiology, pulmonary and nephrology following On 02/18/2021 patient was seen and examined on the medical floor he is alert and oriented 3 in no apparent distress he is still complaining of cough and shortness of breath otherwise he denies any complaints there is no fever or chills no headache or dizziness step pain no palpitation no nausea or vomiting no abdominal pain no diarrhea no blood in the stools no burning with urination no frequency or urgency and no hip On 02/19/2021 Patient was seen and examined on the medical floor, he is alert and oriented x 3 in no distress, he denies any complaints there is no fever or chills no headache or dizziness no chest pain no shortness of breath no palpitation no nausea or vomiting no abdominal pain no diarrhea no blood in the stools no burning with urination no frequency or urgency and no hematuria, there is no weakness or numbness in any of the extremities no change in vision speech or gait. He is still complaining of cough, will add Mucinex and try to obtain a sputum sample for culture. On 02/20/2021 Patient was seen and examined on the medical floor, he is alert and oriented x 3 in no distress, he denies any complaints there is no fever or chills no headache or dizziness no chest pain no shortness of breath no palpitation no cough no nausea or vomiting no abdominal pain no diarrhea no blood in the stools no burning with urination no frequency or urgency and no hematuria, there is no weakness or numbness in any of the extremities no change in vision speech or gait. Vital exam reveals a temperature of 97.9 pulse 1 or 2 respiration 20 lungs pressure 130/88 pulse ox 89% on 15 L high flow cannula. White blood count is 9.3 hemoglobin 12.9 platelet count 207 sodium 139 potassium 3.7 chloride 102 CO2 27 BUN 66 creatinine 1.75 On 02/21/2021 patient is alert and oriented 3 currently eating lunch. Patient denies chest pain or shortness breath. Patient denies nausea vomiting or diarrhea. Patient denies any urinary burning or frequency. Patient remains on 15 L high flow BiPAP at rest. Bun 66 creatinine 2.00. Pulmonary cardiology and nephrology services are following On 02/23/2021 patient is alert and oriented x 3 currently resting comfortably in bed on bipap. High flow decreased to 8L. bipap at rest. creat 1.98 bun 65. patient remains on rocephin and azithromycin. denies any chest pain or shortness of breath. denies any urinary burning or frequency denies any nausea vomiting or diarrhea Objective - Vital Signs Vital signs: Vital Signs Temp 98 F 02/23/21 08:28 Pulse 82 02/23/21 08:28 Resp 17 02/23/21 08:28 BP 124/73 02/23/21 08:28 Pulse Ox 95 02/23/21 08:28 Intake & Output 02/22/21 02/23/21 02/23/21 18:59 06:59 18:59 Intake Total 1138 240 Output Total 950 1500 Balance 188 -1500 240 Intake: Oral 1138 240 Output: Urine 450 1100 Stool 500 400 Other: Voiding Method Toilet Toilet Bedside Commode - Exam In general patient is alert and oriented 3 in no apparent distress HEENT head normocephalic and atraumatic Neck is supple no JVD no goiter no lymphadenopathy Chest exam reveals crackles in both lung zhang no wheezing Cardiac exam reveals irregular heart sounds with tachycardia no murmurs Abdomen is soft nontender no organomegaly with normal bowel sounds Extremity exam reveals 1+ edema, there is a large scabbed ulcer on the left pretibial area with mild surrounding erythema Neurological examination reveals no gross focal deficit - Labs CBC & Chem 7: 02/23/21 07:52 02/23/21 07:52 Labs: Abnormal Lab Results - Last 24 Hours (Table) 02/22/21 02/22/21 02/22/21 Range/Units 10:43 10:43 11:48 Hgb 12.4 L (13.0-17.5) gm/dL Hct 38.0 L (39.0-53.0) % MCHC (31.0-37.0) g/dL RDW (11.5-15.5) % Sodium 133 L (137-145) mmol/L Chloride 97 L (98-107) mmol/L BUN 62 H (9-20) mg/dL Creatinine 1.82 H (0.66-1.25) mg/dL Glucose 151 H (74-99) mg/dL POC Glucose (mg/dL) 145 H (75-99) mg/dL Magnesium (1.6-2.3) mg/dL Total Protein 5.9 L (6.3-8.2) g/dL Albumin 3.1 L (3.5-5.0) g/dL 02/22/21 02/22/21 02/23/21 Range/Units 17:00 20:15 06:15 Hgb (13.0-17.5) gm/dL Hct (39.0-53.0) % MCHC (31.0-37.0) g/dL RDW (11.5-15.5) % Sodium (137-145) mmol/L Chloride (98-107) mmol/L BUN (9-20) mg/dL Creatinine (0.66-1.25) mg/dL Glucose (74-99) mg/dL POC Glucose (mg/dL) 231 H 227 H 133 H (75-99) mg/dL Magnesium (1.6-2.3) mg/dL Total Protein (6.3-8.2) g/dL Albumin (3.5-5.0) g/dL 02/23/21 02/23/21 Range/Units 07:52 07:52 Hgb 12.6 L (13.0-17.5) gm/dL Hct (39.0-53.0) % MCHC 30.2 L (31.0-37.0) g/dL RDW 15.6 H (11.5-15.5) % Sodium 134 L (137-145) mmol/L Chloride 96 L (98-107) mmol/L BUN 65 H (9-20) mg/dL Creatinine 1.98 H (0.66-1.25) mg/dL Glucose 116 H (74-99) mg/dL POC Glucose (mg/dL) (75-99) mg/dL Magnesium 1.5 L (1.6-2.3) mg/dL Total Protein (6.3-8.2) g/dL Albumin 3.3 L (3.5-5.0) g/dL Assessment and Plan Plan: Acute pneumonia patient was started on IV Rocephin and IV Zithromax. Pulmonary services are following Atrial fibrillation with rapid ventricular response. Patient remains on eliquis for anticoagulation. Senia mendenhall DC'keerthi. Cardiology services are following Acute congestive heart failure exacerbation with check echocardiogram cardiology consultation requested. Patient remains on IV Lasix. Patient has been transitioned to oral Lasix Underlying history of hypertension Underlying history of COPD Underlying history of coronary artery disease Underlying history of hyperlipidemia Underlying history of gout Acute kidney injury. Creatinine up to 3.16. Nephrology services are consulted. Ultrasound of kidneys completed showing findings suggestive of medical renal disease. DVT prophylaxis eliquis. GI prophylaxis Protonix Patient remains on IV Rocephin and Zithromax Cardiology, pulmonary and nephrology services are following
[2021-02-23 12:23] LABS: Glucose,Whole Blood 201 mg/dL (75-99)
--- NOTE | 2021-02-23 13:19 | P.PN ---
Subjective Patient is seen in follow-up for acute kidney injury and chronic kidney disease. Patient has chronic kidney disease stage IIIB with baseline creatinine near 2. Renal function fairly stable. Maintained on oral Lasix. Good urine output. Oral intake fair. Sitting up in chair. On 6 L nasal cannula. Blood pressure stable. Vital signs are stable. General: The patient appeared well nourished and normally developed. HEENT: On nasal cannula. LUNGS: Breath sounds decreased. HEART: Rate and Rhythm are regular. ABDOMEN: Soft, nontender. EXTREMITITES: Trace edema. Objective - Vital Signs Vital signs: Vital Signs Temp 98 F 02/23/21 12:54 Pulse 80 02/23/21 12:54 Resp 17 02/23/21 12:54 BP 126/82 02/23/21 12:54 Pulse Ox 82 L 02/23/21 12:54 Intake & Output 02/22/21 02/23/21 02/23/21 18:59 06:59 18:59 Intake Total 1138 240 Output Total 950 1500 Balance 188 -1500 240 Intake: Oral 1138 240 Output: Urine 450 1100 Stool 500 400 Other: Voiding Method Toilet Toilet Bedside Commode - Labs CBC & Chem 7: 02/23/21 07:52 02/23/21 07:52 Labs: Abnormal Lab Results - Last 24 Hours (Table) 02/22/21 02/22/21 02/23/21 Range/Units 17:00 20:15 06:15 Hgb (13.0-17.5) gm/dL MCHC (31.0-37.0) g/dL RDW (11.5-15.5) % Sodium (137-145) mmol/L Chloride (98-107) mmol/L BUN (9-20) mg/dL Creatinine (0.66-1.25) mg/dL Glucose (74-99) mg/dL POC Glucose (mg/dL) 231 H 227 H 133 H (75-99) mg/dL Magnesium (1.6-2.3) mg/dL Albumin (3.5-5.0) g/dL 02/23/21 02/23/21 02/23/21 Range/Units 07:52 07:52 12:17 Hgb 12.6 L (13.0-17.5) gm/dL MCHC 30.2 L (31.0-37.0) g/dL RDW 15.6 H (11.5-15.5) % Sodium 134 L (137-145) mmol/L Chloride 96 L (98-107) mmol/L BUN 65 H (9-20) mg/dL Creatinine 1.98 H (0.66-1.25) mg/dL Glucose 116 H (74-99) mg/dL POC Glucose (mg/dL) 201 H (75-99) mg/dL Magnesium 1.5 L (1.6-2.3) mg/dL Albumin 3.3 L (3.5-5.0) g/dL Microbiology - Last 24 Hours (Table) 02/21/21 04:00 Gram Stain - Final Sputum Sputum Culture - Final Assessment and Plan Plan: Assessment: 1. Acute kidney injury mostly prerenal secondary to cardiorenal syndrome. Renal function fairly stable. Creatinine 1.98 today. No hydronephrosis on kidney ultrasound. 2. Chronic kidney disease stage IIIB with baseline creatinine near 2 secondary to diabetic kidney disease and cardiorenal syndrome. 3. Acute on chronic diastolic CHF with moderate to severe tricuspid regurgitation, moderate mitral regurgitation. 4. Severe pulmonary hypertension. 5. Hypokalemia from diuresis. Replaced. Better. 6. Hypomagnesemia from diuresis. Plan: Maintain oral Lasix. Avoid nephrotoxins. Continue to monitor renal function and urine output. Replace magnesium.
--- NOTE | 2021-02-23 15:29 | P.PN ---
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 He follows in the office with Dr. Bolaños. We have been asked to see in consultation for new onset atrial fibrillation and elevated troponins. Troponins 0.049 and 0.044, and T proBNP 5770. Current home daily cardiac medications include Eliquis 2.5 mg twice a day, Lasix 40 mg twice a day, Toprol 50 mg twice a day, simvastatin 20 mg daily and amlodipine 5 mg daily. Most recent echocardiogram obtained in the office April 2020 revealed preserved LV systolic function with ejection fraction 55%, mild to moderate mitral regurgitation, normally functioning prosthetic aortic valve with a mean gradient across the valve of 21 mmHg, mild to moderate tricuspid regurgitation and mild aortic regurgitation noted. Most recent stress test performed in the office in 2018 with a Lexiscan stress test that was negative for stress-induced ischemia. Echocardiogram revealed left ventricle systolic function EF between 5560 percent, RV severely dilated, LA severely dilated, RA is moderately enlarged, mild stenosis of the prior no prosthetic aortic valve with a mean gradient 19 mmHg, mild mitral stenosis, moderate MR, moderate to severe TR, severe pulmonary hypertension Patient was started on IV Lasix and was on BIPAP to maintain oxygen saturations. 02/23/21: Patient seen and examined at bedside. State his breathing has not really improved. No complaints at this time. BP 124/73 afebrile, requiring 6 L nasal cannula to maintain oxygen saturations. and Requiring BIPAP Telemetry reviewed, patient continued to be in atrial fibrillation heart rate has been in the 80s. patient's ventricular rates are currently controlled heart rate 70s to 100. Patient continues to have good urine output over 2L urine output over the past 24 hours. PHYSICAL EXAMINATION Vitals reviewed CONSTITUTIONAL: No apparent distress. HEENT: Head is normocephalic. No JVD. No carotid bruit. CHEST EXAMINATION: Bibasilar coarse rales, scattered rhonchi, no wheezes. HEART EXAMINATION: Irregular rate and rhythm. S1, S2 heard. Systolic ejection murmur at the base ABDOMEN: Soft, nontender. Positive bowel sounds. EXTREMITIES: 2+ peripheral pulses, 2+ bilateral lower extremity pitting edema and no calf tenderness. +right foot and left anterior montejo ulcers NEUROLOGIC EXAMINATION: Patient is awake, alert and oriented x3. ASSESSMENT Paroxysmal atrial fibrillation with rapid ventricular rate Acute on chronic diastolic heart failure Hypoxia Right lower lobe pnuemonia Troponin leak, likely related to renal function. This flat appearance with no significant rise and fall pattern suggestive of myocardial injury. Valvular heart disease status post tissue aortic valve replacement 2014 Chronic kidney disease Hypertension Diabetes mellitus with hypoglycemia on admission Dyslipidemia MARIANA, improved, at baseline Mild pauses up to 2.4 seconds while sleeping when in Afib, asymptomatic Severe pulmonary hypertension with RSVP 76 Chronic LE edema, may be a component of chronic venous insufficiency Bilateral nonhealing left foot and right montejo ulcers Hypomagnesia- replaced PLAN Will continue current medical therapy with Cardizem 60 mg 3 times a day and Metoprolol with good ventricular rate control Continue Eliquis 5mg bid anticoagulation Nephrology following Pulmonary following,- patient is currently being treated with azithromycin and IV Rocephin No further recommendations at this time from cardiology perspective. Patient is stable. On PO Lasix, ventricular rates are controlled We will sign off at this time Please reach out with any further questions or concerns Thank you kindly for this consultation Objective - Vital Signs Vital signs: Vital Signs Temp 98 F 02/23/21 12:54 Pulse 80 02/23/21 12:54 Resp 17 02/23/21 12:54 BP 126/82 02/23/21 12:54 Pulse Ox 82 L 02/23/21 12:54 Intake & Output 02/22/21 02/23/21 02/23/21 18:59 06:59 18:59 Intake Total 1138 480 Output Total 950 1500 900 Balance 188 -1500 -420 Intake: Oral 1138 480 Output: Urine 450 1100 200 Stool 500 400 700 Other: Voiding Method Toilet Toilet Bedside Commode - Labs CBC & Chem 7: 02/23/21 07:52 02/23/21 07:52 Labs: Abnormal Lab Results - Last 24 Hours (Table) 02/22/21 02/22/21 02/23/21 Range/Units 17:00 20:15 06:15 Hgb (13.0-17.5) gm/dL MCHC (31.0-37.0) g/dL RDW (11.5-15.5) % Sodium (137-145) mmol/L Chloride (98-107) mmol/L BUN (9-20) mg/dL Creatinine (0.66-1.25) mg/dL Glucose (74-99) mg/dL POC Glucose (mg/dL) 231 H 227 H 133 H (75-99) mg/dL Magnesium (1.6-2.3) mg/dL Albumin (3.5-5.0) g/dL 02/23/21 02/23/21 02/23/21 Range/Units 07:52 07:52 12:17 Hgb 12.6 L (13.0-17.5) gm/dL MCHC 30.2 L (31.0-37.0) g/dL RDW 15.6 H (11.5-15.5) % Sodium 134 L (137-145) mmol/L Chloride 96 L (98-107) mmol/L BUN 65 H (9-20) mg/dL Creatinine 1.98 H (0.66-1.25) mg/dL Glucose 116 H (74-99) mg/dL POC Glucose (mg/dL) 201 H (75-99) mg/dL Magnesium 1.5 L (1.6-2.3) mg/dL Albumin 3.3 L (3.5-5.0) g/dL Microbiology - Last 24 Hours (Table) 02/21/21 04:00 Gram Stain - Final Sputum Sputum Culture - Final
[2021-02-23] MEDS: MAGNESIUM SULFATE-D5W PMX 1 GM in DEXTROSE/WATER 1 100ML.BAG IVPB SCH ×2 (17:01→18:00)
[2021-02-23 17:02] LABS: Glucose,Whole Blood 185 mg/dL (75-99)
[2021-02-23 20:49] LABS: Glucose,Whole Blood 264 mg/dL (75-99)
[2021-02-23] MEDS: INSULIN DETEMIR (LEVEMIR) 100 UNIT/ML SYR SQ SCH (21:01)
[2021-02-23] MEDS: LATANOPROST 0.005% OPHTH DROPS 2.5 ML BTL BOTH EYES SCH (21:02)
[2021-02-23] MEDS: CYCLOBENZAPRINE 10 MG TAB PO PRN (22:38)
[2021-02-24 06:41] LABS: Glucose,Whole Blood 83 mg/dL (75-99)
[2021-02-24] MEDS: INSULIN ASPART (NovoLOG) 100 UNIT/ML VIAL SQ SCH ×4 (06:42→21:06)
[2021-02-24] MEDS: PANTOPRAZOLE 40 MG TABLET PO SCH (06:45)
[2021-02-24] MEDS: HYDROcodone/APAP 10-325MG 1 EACH TAB PO PRN ×3 (06:45→23:41)
[2021-02-24 08:20] LABS: Basophils # (A) 0.1 k/uL (0-0.2); Basophils % (A) 1 %; Eosinophils # (A) 0.3 k/uL (0-0.7); Eosinophils % (A) 3 %; HCT 36.4 % (39.0-53.0); Lymphocytes # (A) 1.6 k/uL (1.0-4.8); Lymphocytes % (A) 17 %; MCH 28.6 pg (25.0-35.0); MCHC 32.8 g/dL (31.0-37.0); MCV 87.2 fL (80.0-100.0); Monocytes # (A) 0.8 k/uL (0-1.0); Monocytes % (A) 8 %; Neutrophils # (A) 6.9 k/uL (1.3-7.7); Neutrophils % (A) 71 %; Platelet Count 244 k/uL (150-450); RBC 4.18 m/uL (4.30-5.90); RDW 15.2 % (11.5-15.5); WBC 9.8 k/uL (3.8-10.6)
[2021-02-24 08:39] LABS: Potassium 5.3 mmol/L (3.5-5.1); Total Bilirubin 0.5 mg/dL (0.2-1.3); Total Protein 5.8 g/dL (6.3-8.2)
[2021-02-24] MEDS: guaiFENesin 600 MG TABLET.ER PO SCH ×2 (09:09→21:05)
[2021-02-24] MEDS: ATORVASTATIN 10 MG TAB PO SCH (09:09)
[2021-02-24] MEDS: DILTIAZEM ORAL 30 MG TAB PO SCH ×3 (09:09→21:05)
[2021-02-24] MEDS: FUROSEMIDE 40 MG TAB PO SCH (09:09)
[2021-02-24] MEDS: MAGNESIUM OXIDE 400 MG TAB PO SCH ×2 (09:09→21:05)
[2021-02-24] MEDS: APIXABAN 5 MG TAB PO SCH ×2 (09:09→21:05)
[2021-02-24] MEDS: METOPROLOL SUCCINATE (ER) 50 MG TAB.ER.24H PO SCH ×2 (09:09→21:05)
[2021-02-24] MEDS: FENOFIBRATE 160 MG TAB PO SCH (09:09)
[2021-02-24] MEDS: AZITHROMYCIN 500 MG TAB PO SCH (09:09)
[2021-02-24] MEDS: FEBUXOSTAT 80 MG PO SCH (09:10)
--- NOTE | 2021-02-24 11:41 | P.PN ---
Subjective Progress Note Date: 02/24/21 Faisal Andrade, is a 70-year-old male who presented to [facility] emergency room with a chief complaint of worsening shortness of breath over several weeks and cough and chest congestion, he was evaluated in the emergency room vital examination on presentation revealed a temperature of 96.7 also 130 respiration 26 blood pressure 142/87 pulse ox 96% on 3 L nasal cannula white blood count was 9.6 hemoglobin 14.1 platelet count 291 sodium 140 potassium 4.7 chloride 110 CO2 20 BUN 58 creatinine 2.4 troponin level was 0.044 BNP was elevated at 5717 Gu virus PCR was negative. Chest x-ray done in the emergency room revealed right lower lobe infiltrate suggestive of pneumonia, EKG revealed evidence of atrial fibrillation with rapid ventricular response. Patient was admitted to telemetry floor, he was started on IV antibiotics ceftriaxone and Zithromax, he was started on Cardizem drip, and IV Lasix, cardiology consultation and pulmonary consultation were requested. On 02/13/2021 patient was seen and examined on the medical floor, he is alert and oriented 3 in no apparent distress he is still complaining of shortness of breath however he noticed some improvement since yesterday he also had some occasional cough otherwise he denies any complaints there is no fever or chills no headache or dizziness no chest pain no nausea or vomiting no abdominal pain no diarrhea no blood in the stools no burning with urination no frequency or urgency and no hematuria he is maintained on IV Lasix his creatinine is going up chronic kidney disease will add a consult for nephrology at this time On 02/14/2021 patient currently resting on BiPAP. Patient does wake up quickly falls back to sleep. Per nursing staff patient remained short of breath with minimal activity. Patient remains on IV Lasix. IV Lasix have been decreased to 2 acute kidney injury. Cardiology, pulmonary and nephrology services are following. Ultrasound kidneys has been ordered per nephrology. At this time patient denies nausea vomiting or diarrhea. Patient denies any urinary burning or frequency On 02/15/2021 patient currently resting on BiPAP. Patient does wake up quickly falls back to sleep. Per nursing staff patient remained short of breath with minimal activity. he is still complaining of shortness of breath however he noticed some improvement since yesterday he also had some occasional cough otherwise he denies any complaints there is no fever or chills no headache or dizziness no chest pain no nausea or vomiting no abdominal pain no diarrhea no blood in the stools no burning with urination no frequency or urgency and no hematuria he is maintained on IV Lasix his creatinine is going up chronic kidney disease will add a consult for nephrology at this time. Patient remains on IV La six. IV Lasix have been decreased to 2 acute kidney injury. Cardiology, pulmonary and nephrology services are following. Ultrasound kidneys has been ordered per nephrology. At this time patient denies nausea vomiting or diarrhea. Patient denies any urinary burning or frequency On 02/16/2021 patient currently resting on BiPAP. Patient does wake up was able to keep breakfast. Patient maintained on IV Lasix 40 mg twice a day. Ultrasound of kidneys completed showing findings suggestive of medical renal disease. Repeat labs have been ordered. Patient denies chest pain. Patient denies nausea vomiting or diarrhea. Patient denies any urinary burning or frequency. Cardiology, pulmonary and nephrology services are following On 02/17/2021 patient's alert and oriented 3. Patient currently resting on BiPAP. Patient reports he is starting to feel better. Creatinine and bun trending down. Patient does report some shortness breath but does state this is improved. Patient denies chest pain. Patient denies nausea vomiting or diarrhea. Patient denies any urinary burning or frequency. Patient remains on azithromycin and Rocephin for IV antibiotics. IV Lasix 40 mg every 12 hours. Cardiology, pulmonary and nephrology following On 02/18/2021 patient was seen and examined on the medical floor he is alert and oriented 3 in no apparent distress he is still complaining of cough and shortness of breath otherwise he denies any complaints there is no fever or chills no headache or dizziness step pain no palpitation no nausea or vomiting no abdominal pain no diarrhea no blood in the stools no burning with urination no frequency or urgency and no hip On 02/19/2021 Patient was seen and examined on the medical floor, he is alert and oriented x 3 in no distress, he denies any complaints there is no fever or chills no headache or dizziness no chest pain no shortness of breath no palpitation no nausea or vomiting no abdominal pain no diarrhea no blood in the stools no burning with urination no frequency or urgency and no hematuria, there is no weakness or numbness in any of the extremities no change in vision speech or gait. He is still complaining of cough, will add Mucinex and try to obtain a sputum sample for culture. On 02/20/2021 Patient was seen and examined on the medical floor, he is alert and oriented x 3 in no distress, he denies any complaints there is no fever or chills no headache or dizziness no chest pain no shortness of breath no palpitation no cough no nausea or vomiting no abdominal pain no diarrhea no blood in the stools no burning with urination no frequency or urgency and no hematuria, there is no weakness or numbness in any of the extremities no change in vision speech or gait. Vital exam reveals a temperature of 97.9 pulse 1 or 2 respiration 20 lungs pressure 130/88 pulse ox 89% on 15 L high flow cannula. White blood count is 9.3 hemoglobin 12.9 platelet count 207 sodium 139 potassium 3.7 chloride 102 CO2 27 BUN 66 creatinine 1.75 On 02/21/2021 patient is alert and oriented 3 currently eating lunch. Patient denies chest pain or shortness breath. Patient denies nausea vomiting or diarrhea. Patient denies any urinary burning or frequency. Patient remains on 15 L high flow BiPAP at rest. Bun 66 creatinine 2.00. Pulmonary cardiology and nephrology services are following On 02/23/2021 patient is alert and oriented x 3 currently resting comfortably in bed on bipap. High flow decreased to 8L. bipap at rest. creat 1.98 bun 65. patient remains on rocephin and azithromycin. denies any chest pain or shortness of breath. denies any urinary burning or frequency denies any nausea vomiting or diarrhea. On 02/24/2021 patient was seen and examined on the medical floor he is alert and oriented 3 in no distress, he is maintained on oxygen via nasal cannula and is tolerating well he is using BiPAP at night there is no fever or chills no headache or dizziness no chest pain no shortness of breath at rest no cough no nausea or vomiting no abdominal pain no diarrhea no blood in the stools no burning with urination no frequency or urgency and no hematuria Objective - Vital Signs Vital signs: Vital Signs Temp 98.0 F 02/24/21 04:00 Pulse 87 02/24/21 04:00 Resp 25 H 02/24/21 04:00 BP 99/66 02/24/21 04:00 Pulse Ox 90 L 02/24/21 08:26 Intake & Output 02/23/21 02/24/21 02/24/21 18:59 06:59 18:59 Intake Total 720 300 Output Total 900 1525 200 Balance -180 -1225 -200 Weight 48 kg Intake: Oral 720 300 Output: Urine 200 925 200 Stool 700 600 Other: Voiding Method Toilet Toilet Bedside Commode Bedside Commode # Voids 1 - Exam In general patient is alert and oriented 3 in no apparent distress HEENT head normocephalic and atraumatic Neck is supple no JVD no goiter no lymphadenopathy Chest exam reveals crackles in both lung zhang no wheezing Cardiac exam reveals irregular heart sounds with tachycardia no murmurs Abdomen is soft nontender no organomegaly with normal bowel sounds Extremity exam reveals 1+ edema, there is a large scabbed ulcer on the left pretibial area with mild surrounding erythema Neurological examination reveals no gross focal deficit - Labs CBC & Chem 7: 02/24/21 07:18 02/24/21 07:18 Labs: Abnormal Lab Results - Last 24 Hours (Table) 02/23/21 02/23/21 02/23/21 Range/Units 07:52 12:17 16:54 RBC (4.30-5.90) m/uL Hgb 12.6 L (13.0-17.5) gm/dL Hct (39.0-53.0) % MCHC 30.2 L (31.0-37.0) g/dL RDW 15.6 H (11.5-15.5) % Sodium (137-145) mmol/L Potassium (3.5-5.1) mmol/L BUN (9-20) mg/dL Creatinine (0.66-1.25) mg/dL Glucose (74-99) mg/dL POC Glucose (mg/dL) 201 H 185 H (75-99) mg/dL Total Protein (6.3-8.2) g/dL Albumin (3.5-5.0) g/dL 02/23/21 02/24/21 02/24/21 Range/Units 20:47 07:18 07:18 RBC 4.18 L (4.30-5.90) m/uL Hgb 12.0 L (13.0-17.5) gm/dL Hct 36.4 L (39.0-53.0) % MCHC (31.0-37.0) g/dL RDW (11.5-15.5) % Sodium 132 L (137-145) mmol/L Potassium 5.3 H (3.5-5.1) mmol/L BUN 74 H (9-20) mg/dL Creatinine 1.89 H (0.66-1.25) mg/dL Glucose 65 L (74-99) mg/dL POC Glucose (mg/dL) 264 H (75-99) mg/dL Total Protein 5.8 L (6.3-8.2) g/dL Albumin 3.0 L (3.5-5.0) g/dL Microbiology - Last 24 Hours (Table) 02/21/21 04:00 Gram Stain - Final Sputum Sputum Culture - Final Assessment and Plan Plan: Acute pneumonia patient was started on IV Rocephin and IV Zithromax. Pulmonary services are following Atrial fibrillation with rapid ventricular response. Patient remains on eliquis for anticoagulation. [facility] Cardiology services are following Acute congestive heart failure exacerbation with check echocardiogram cardiology consultation requested. Patient remains on IV Lasix. Patient has been transitioned to oral Lasix Underlying history of hypertension Underlying history of COPD Underlying history of coronary artery disease Underlying history of hyperlipidemia Underlying history of gout Acute kidney injury. Creatinine up to 3.16. Nephrology services are consulted. Ultrasound of kidneys completed showing findings suggestive of medical renal disease. DVT prophylaxis eliquis. GI prophylaxis Protonix Patient remains on IV Rocephin and Zithromax Cardiology, pulmonary and nephrology services are following
--- NOTE | 2021-02-24 11:42 | P.PN ---
Subjective Progress Note Date: 02/22/21 Faisal Andrade, is a 70-year-old male who presented to [facility] emergency room with a chief complaint of worsening shortness of breath over several weeks and cough and chest congestion, he was evaluated in the emergency room vital examination on presentation revealed a temperature of 96.7 also 130 respiration 26 blood pressure 142/87 pulse ox 96% on 3 L nasal cannula white blood count was 9.6 hemoglobin 14.1 platelet count 291 sodium 140 potassium 4.7 chloride 110 CO2 20 BUN 58 creatinine 2.4 troponin level was 0.044 BNP was elevated at 5717 Gu virus PCR was negative. Chest x-ray done in the emergency room revealed right lower lobe infiltrate suggestive of pneumonia, EKG revealed evidence of atrial fibrillation with rapid ventricular response. Patient was admitted to telemetry floor, he was started on IV antibiotics ceftriaxone and Zithromax, he was started on Cardizem drip, and IV Lasix, cardiology consultation and pulmonary consultation were requested. On 02/13/2021 patient was seen and examined on the medical floor, he is alert and oriented 3 in no apparent distress he is still complaining of shortness of breath however he noticed some improvement since yesterday he also had some occasional cough otherwise he denies any complaints there is no fever or chills no headache or dizziness no chest pain no nausea or vomiting no abdominal pain no diarrhea no blood in the stools no burning with urination no frequency or urgency and no hematuria he is maintained on IV Lasix his creatinine is going up chronic kidney disease will add a consult for nephrology at this time On 02/14/2021 patient currently resting on BiPAP. Patient does wake up quickly falls back to sleep. Per nursing staff patient remained short of breath with minimal activity. Patient remains on IV Lasix. IV Lasix have been decreased to 2 acute kidney injury. Cardiology, pulmonary and nephrology services are following. Ultrasound kidneys has been ordered per nephrology. At this time patient denies nausea vomiting or diarrhea. Patient denies any urinary burning or frequency On 02/15/2021 patient currently resting on BiPAP. Patient does wake up quickly falls back to sleep. Per nursing staff patient remained short of breath with minimal activity. he is still complaining of shortness of breath however he noticed some improvement since yesterday he also had some occasional cough otherwise he denies any complaints there is no fever or chills no headache or dizziness no chest pain no nausea or vomiting no abdominal pain no diarrhea no blood in the stools no burning with urination no frequency or urgency and no hematuria he is maintained on IV Lasix his creatinine is going up chronic kidney disease will add a consult for nephrology at this time. Patient remains on IV La six. IV Lasix have been decreased to 2 acute kidney injury. Cardiology, pulmonary and nephrology services are following. Ultrasound kidneys has been ordered per nephrology. At this time patient denies nausea vomiting or diarrhea. Patient denies any urinary burning or frequency On 02/16/2021 patient currently resting on BiPAP. Patient does wake up was able to keep breakfast. Patient maintained on IV Lasix 40 mg twice a day. Ultrasound of kidneys completed showing findings suggestive of medical renal disease. Repeat labs have been ordered. Patient denies chest pain. Patient denies nausea vomiting or diarrhea. Patient denies any urinary burning or frequency. Cardiology, pulmonary and nephrology services are following On 02/17/2021 patient's alert and oriented 3. Patient currently resting on BiPAP. Patient reports he is starting to feel better. Creatinine and bun trending down. Patient does report some shortness breath but does state this is improved. Patient denies chest pain. Patient denies nausea vomiting or diarrhea. Patient denies any urinary burning or frequency. Patient remains on azithromycin and Rocephin for IV antibiotics. IV Lasix 40 mg every 12 hours. Cardiology, pulmonary and nephrology following On 02/18/2021 patient was seen and examined on the medical floor he is alert and oriented 3 in no apparent distress he is still complaining of cough and shortness of breath otherwise he denies any complaints there is no fever or chills no headache or dizziness step pain no palpitation no nausea or vomiting no abdominal pain no diarrhea no blood in the stools no burning with urination no frequency or urgency and no hip On 02/19/2021 Patient was seen and examined on the medical floor, he is alert and oriented x 3 in no distress, he denies any complaints there is no fever or chills no headache or dizziness no chest pain no shortness of breath no palpitation no nausea or vomiting no abdominal pain no diarrhea no blood in the stools no burning with urination no frequency or urgency and no hematuria, there is no weakness or numbness in any of the extremities no change in vision speech or gait. He is still complaining of cough, will add Mucinex and try to obtain a sputum sample for culture. On 02/20/2021 Patient was seen and examined on the medical floor, he is alert and oriented x 3 in no distress, he denies any complaints there is no fever or chills no headache or dizziness no chest pain no shortness of breath no palpitation no cough no nausea or vomiting no abdominal pain no diarrhea no blood in the stools no burning with urination no frequency or urgency and no hematuria, there is no weakness or numbness in any of the extremities no change in vision speech or gait. Vital exam reveals a temperature of 97.9 pulse 1 or 2 respiration 20 lungs pressure 130/88 pulse ox 89% on 15 L high flow cannula. White blood count is 9.3 hemoglobin 12.9 platelet count 207 sodium 139 potassium 3.7 chloride 102 CO2 27 BUN 66 creatinine 1.75 On 02/21/2021 patient is alert and oriented 3 currently eating lunch. Patient denies chest pain or shortness breath. Patient denies nausea vomiting or diarrhea. Patient denies any urinary burning or frequency. Patient remains on 15 L high flow BiPAP at rest. Bun 66 creatinine 2.00. Pulmonary cardiology and nephrology services are following On 02/22/2021 patient was seen and examined on the medical floor he is alert and oriented 3 in no apparent distress he is still complaining of cough and shortness of breath otherwise he denies any complaints there is no fever or chills no headache or dizziness step pain no palpitation no nausea or vomiting no abdominal pain no diarrhea no blood in the stools no burning with urination no frequency or urgency and no hematuria patient is still requiring BiPAP Objective - Vital Signs Vital signs: Vital Signs Temp 98 F 02/22/21 09:14 Pulse 92 02/22/21 09:14 Resp 17 02/22/21 09:14 BP 152/72 02/22/21 09:14 Pulse Ox 95 02/22/21 09:14 Intake & Output 02/21/21 02/22/21 02/22/21 18:59 06:59 18:59 Intake Total 240 220 338 Output Total 775 800 Balance -535 -580 338 Weight 47.5 kg Intake: Oral 240 220 338 Output: Urine 275 400 Stool 500 400 Other: Voiding Method Urinal Urinal Toilet - Exam In general patient is alert and oriented 3 in no apparent distress HEENT head normocephalic and atraumatic Neck is supple no JVD no goiter no lymphadenopathy Chest exam reveals crackles in both lung zhang no wheezing Cardiac exam reveals irregular heart sounds with tachycardia no murmurs Abdomen is soft nontender no organomegaly with normal bowel sounds Extremity exam reveals 1+ edema, there is a large scabbed ulcer on the left pretibial area with mild surrounding erythema Neurological examination reveals no gross focal deficit - Labs CBC & Chem 7: 02/24/21 07:18 02/24/21 07:18 Labs: Abnormal Lab Results - Last 24 Hours (Table) 02/21/21 02/21/21 02/21/21 Range/Units 11:57 16:49 20:10 POC Glucose (mg/dL) 215 H 159 H 252 H (75-99) mg/dL Microbiology - Last 24 Hours (Table) 02/21/21 04:00 Gram Stain - Preliminary Sputum Sputum Culture - Preliminary Assessment and Plan Plan: Acute pneumonia patient was started on IV Rocephin and IV Zithromax. Pulmonary services are following Atrial fibrillation with rapid ventricular response. Patient remains on eliquis for anticoagulation. Senia mendenhall DC'keerthi. Cardiology services are following Acute congestive heart failure exacerbation with check echocardiogram cardiology consultation requested. Patient remains on IV Lasix. Patient has been transi tioned to oral Lasix Underlying history of hypertension Underlying history of COPD Underlying history of coronary artery disease Underlying history of hyperlipidemia Underlying history of gout Acute kidney injury. Creatinine up to 3.16. Nephrology services are consulted. Ultrasound of kidneys completed showing findings suggestive of medical renal disease. DVT prophylaxis eliquis. GI prophylaxis Protonix Patient remains on IV Rocephin and Zithromax Cardiology, pulmonary and nephrology services are following
[2021-02-24 11:49] LABS: Glucose,Whole Blood 198 mg/dL (75-99)
--- NOTE | 2021-02-24 11:52 | P.PN ---
Subjective Progress Note Date: 02/24/21 Follow-up for acute kidney injury. On BiPAP, admits good urine output. Denies any urinary retention. Objective - Vital Signs Vital signs: Vital Signs Temp 97.6 F 02/24/21 11:24 Pulse 95 02/24/21 11:24 Resp 23 02/24/21 11:24 BP 133/74 02/24/21 11:24 Pulse Ox 96 02/24/21 11:24 Intake & Output 02/23/21 02/24/21 02/24/21 18:59 06:59 18:59 Intake Total 720 300 180 Output Total 900 1525 250 Balance -180 -1225 -70 Weight 48 kg Intake: Oral 720 300 180 Output: Urine 200 925 200 Stool 700 600 50 Other: Voiding Method Toilet Toilet Toilet Bedside Commode Bedside Commode Bedside Commode # Voids 1 - Exam No acute distress S1-S2 heard decreased breath sounds Edema. - Labs CBC & Chem 7: 02/24/21 07:18 02/24/21 07:18 Labs: Abnormal Lab Results - Last 24 Hours (Table) 02/23/21 02/23/21 02/23/21 Range/Units 12:17 16:54 20:47 RBC (4.30-5.90) m/uL Hgb (13.0-17.5) gm/dL Hct (39.0-53.0) % Sodium (137-145) mmol/L Potassium (3.5-5.1) mmol/L BUN (9-20) mg/dL Creatinine (0.66-1.25) mg/dL Glucose (74-99) mg/dL POC Glucose (mg/dL) 201 H 185 H 264 H (75-99) mg/dL Total Protein (6.3-8.2) g/dL Albumin (3.5-5.0) g/dL 02/24/21 02/24/21 Range/Units 07:18 07:18 RBC 4.18 L (4.30-5.90) m/uL Hgb 12.0 L (13.0-17.5) gm/dL Hct 36.4 L (39.0-53.0) % Sodium 132 L (137-145) mmol/L Potassium 5.3 H (3.5-5.1) mmol/L BUN 74 H (9-20) mg/dL Creatinine 1.89 H (0.66-1.25) mg/dL Glucose 65 L (74-99) mg/dL POC Glucose (mg/dL) (75-99) mg/dL Total Protein 5.8 L (6.3-8.2) g/dL Albumin 3.0 L (3.5-5.0) g/dL Microbiology - Last 24 Hours (Table) 02/21/21 04:00 Gram Stain - Final Sputum Sputum Culture - Final Assessment and Plan Assessment: #1 Shortness of breath with volume overload. #2 chronic kidney disease stage IIIB secondary to diabetic nephropathy with a baseline creatinine of around 2.2 MG per DL. #3 acute on chronic diastolic CHF with pulmonary hypertension #4 mild hyperkalemia. Rule out urinary retention #5 Hypervolemic hyponatremia. Plan: #1 renal function stable. #2 increase Lasix from oral to 40 mg IV twice a day. #3 bladder scan to rule out urinary retention #4 strict ins and outs and daily weights #5 labs in the morning
[2021-02-24] MEDS: ALBUTEROL NEBULIZED 2.5 MG/3 ML INHALATION PRN ×2 (11:55→20:16)
[2021-02-24] MEDS: FUROSEMIDE 10 MG/ML 4 ML VIAL IV SCH ×2 (12:17→21:06)
[2021-02-24 16:52] LABS: Glucose,Whole Blood 219 mg/dL (75-99)
[2021-02-24 20:11] LABS: Glucose,Whole Blood 258 mg/dL (75-99)
[2021-02-24] MEDS: LATANOPROST 0.005% OPHTH DROPS 2.5 ML BTL BOTH EYES SCH (21:06)
[2021-02-24] MEDS: INSULIN DETEMIR (LEVEMIR) 100 UNIT/ML SYR SQ SCH (21:18)
[2021-02-24] MEDS: CYCLOBENZAPRINE 10 MG TAB PO PRN (23:41)
[2021-02-25 06:15] LABS: Glucose,Whole Blood 82 mg/dL (75-99)
[2021-02-25] MEDS: INSULIN ASPART (NovoLOG) 100 UNIT/ML VIAL SQ SCH ×4 (06:28→21:22)
[2021-02-25] MEDS: PANTOPRAZOLE 40 MG TABLET PO SCH (06:33)
[2021-02-25] MEDS: HYDROcodone/APAP 10-325MG 1 EACH TAB PO PRN ×3 (06:34→23:07)
[2021-02-25] MEDS: FUROSEMIDE 10 MG/ML 4 ML VIAL IV SCH ×2 (07:45→21:22)
[2021-02-25] MEDS: DILTIAZEM ORAL 30 MG TAB PO SCH ×3 (07:46→21:21)
[2021-02-25] MEDS: guaiFENesin 600 MG TABLET.ER PO SCH ×2 (07:46→21:22)
[2021-02-25] MEDS: APIXABAN 5 MG TAB PO SCH ×2 (07:46→21:22)
[2021-02-25] MEDS: FENOFIBRATE 160 MG TAB PO SCH (07:46)
[2021-02-25] MEDS: FEBUXOSTAT 80 MG PO SCH (07:46)
[2021-02-25] MEDS: MAGNESIUM OXIDE 400 MG TAB PO SCH ×2 (07:46→21:22)
[2021-02-25] MEDS: ATORVASTATIN 10 MG TAB PO SCH (07:46)
[2021-02-25] MEDS: METOPROLOL SUCCINATE (ER) 50 MG TAB.ER.24H PO SCH ×2 (07:46→21:22)
[2021-02-25] MEDS: AZITHROMYCIN 500 MG TAB PO SCH (07:46)
[2021-02-25 09:00] LABS: Basophils # (A) 0.1 k/uL (0-0.2); Basophils % (A) 1 %; Eosinophils # (A) 0.2 k/uL (0-0.7); Eosinophils % (A) 3 %; HCT 35.2 % (39.0-53.0); HGB 11.7 gm/dL (13.0-17.5); Lymphocytes # (A) 1.4 k/uL (1.0-4.8); Lymphocytes % (A) 17 %; MCHC 33.2 g/dL (31.0-37.0); MCV 87.3 fL (80.0-100.0); Mean Platelet Volume 8.4; Monocytes # (A) 0.6 k/uL (0-1.0); Monocytes % (A) 7 %; Neutrophils # (A) 5.8 k/uL (1.3-7.7); Neutrophils % (A) 71 %; Platelet Count 244 k/uL (150-450); RBC 4.03 m/uL (4.30-5.90); RDW 15.3 % (11.5-15.5); WBC 8.3 k/uL (3.8-10.6)
[2021-02-25 09:09] LABS: Potassium 4.3 mmol/L (3.5-5.1)
[2021-02-25] MEDS: ALBUTEROL NEBULIZED 2.5 MG/3 ML INHALATION PRN ×3 (09:09→16:45)
--- NOTE | 2021-02-25 11:16 | P.PN ---
Subjective Progress Note Date: 02/25/21 Faisal Andrade, is a 70-year-old male who presented to [facility] emergency room with a chief complaint of worsening shortness of breath over several weeks and cough and chest congestion, he was evaluated in the emergency room vital examination on presentation revealed a temperature of 96.7 also 130 respiration 26 blood pressure 142/87 pulse ox 96% on 3 L nasal cannula white blood count was 9.6 hemoglobin 14.1 platelet count 291 sodium 140 potassium 4.7 chloride 110 CO2 20 BUN 58 creatinine 2.4 troponin level was 0.044 BNP was elevated at 5717 Gu virus PCR was negative. Chest x-ray done in the emergency room revealed right lower lobe infiltrate suggestive of pneumonia, EKG revealed evidence of atrial fibrillation with rapid ventricular response. Patient was admitted to telemetry floor, he was started on IV antibiotics ceftriaxone and Zithromax, he was started on Cardizem drip, and IV Lasix, cardiology consultation and pulmonary consultation were requested. On 02/13/2021 patient was seen and examined on the medical floor, he is alert and oriented 3 in no apparent distress he is still complaining of shortness of breath however he noticed some improvement since yesterday he also had some occasional cough otherwise he denies any complaints there is no fever or chills no headache or dizziness no chest pain no nausea or vomiting no abdominal pain no diarrhea no blood in the stools no burning with urination no frequency or urgency and no hematuria he is maintained on IV Lasix his creatinine is going up chronic kidney disease will add a consult for nephrology at this time On 02/14/2021 patient currently resting on BiPAP. Patient does wake up quickly falls back to sleep. Per nursing staff patient remained short of breath with minimal activity. Patient remains on IV Lasix. IV Lasix have been decreased to 2 acute kidney injury. Cardiology, pulmonary and nephrology services are following. Ultrasound kidneys has been ordered per nephrology. At this time patient denies nausea vomiting or diarrhea. Patient denies any urinary burning or frequency On 02/15/2021 patient currently resting on BiPAP. Patient does wake up quickly falls back to sleep. Per nursing staff patient remained short of breath with minimal activity. he is still complaining of shortness of breath however he noticed some improvement since yesterday he also had some occasional cough otherwise he denies any complaints there is no fever or chills no headache or dizziness no chest pain no nausea or vomiting no abdominal pain no diarrhea no blood in the stools no burning with urination no frequency or urgency and no hematuria he is maintained on IV Lasix his creatinine is going up chronic kidney disease will add a consult for nephrology at this time. Patient remains on IV La six. IV Lasix have been decreased to 2 acute kidney injury. Cardiology, pulmonary and nephrology services are following. Ultrasound kidneys has been ordered per nephrology. At this time patient denies nausea vomiting or diarrhea. Patient denies any urinary burning or frequency On 02/16/2021 patient currently resting on BiPAP. Patient does wake up was able to keep breakfast. Patient maintained on IV Lasix 40 mg twice a day. Ultrasound of kidneys completed showing findings suggestive of medical renal disease. Repeat labs have been ordered. Patient denies chest pain. Patient denies nausea vomiting or diarrhea. Patient denies any urinary burning or frequency. Cardiology, pulmonary and nephrology services are following On 02/17/2021 patient's alert and oriented 3. Patient currently resting on BiPAP. Patient reports he is starting to feel better. Creatinine and bun trending down. Patient does report some shortness breath but does state this is improved. Patient denies chest pain. Patient denies nausea vomiting or diarrhea. Patient denies any urinary burning or frequency. Patient remains on azithromycin and Rocephin for IV antibiotics. IV Lasix 40 mg every 12 hours. Cardiology, pulmonary and nephrology following On 02/18/2021 patient was seen and examined on the medical floor he is alert and oriented 3 in no apparent distress he is still complaining of cough and shortness of breath otherwise he denies any complaints there is no fever or chills no headache or dizziness step pain no palpitation no nausea or vomiting no abdominal pain no diarrhea no blood in the stools no burning with urination no frequency or urgency and no hip On 02/19/2021 Patient was seen and examined on the medical floor, he is alert and oriented x 3 in no distress, he denies any complaints there is no fever or chills no headache or dizziness no chest pain no shortness of breath no palpitation no nausea or vomiting no abdominal pain no diarrhea no blood in the stools no burning with urination no frequency or urgency and no hematuria, there is no weakness or numbness in any of the extremities no change in vision speech or gait. He is still complaining of cough, will add Mucinex and try to obtain a sputum sample for culture. On 02/20/2021 Patient was seen and examined on the medical floor, he is alert and oriented x 3 in no distress, he denies any complaints there is no fever or chills no headache or dizziness no chest pain no shortness of breath no palpitation no cough no nausea or vomiting no abdominal pain no diarrhea no blood in the stools no burning with urination no frequency or urgency and no hematuria, there is no weakness or numbness in any of the extremities no change in vision speech or gait. Vital exam reveals a temperature of 97.9 pulse 1 or 2 respiration 20 lungs pressure 130/88 pulse ox 89% on 15 L high flow cannula. White blood count is 9.3 hemoglobin 12.9 platelet count 207 sodium 139 potassium 3.7 chloride 102 CO2 27 BUN 66 creatinine 1.75 On 02/21/2021 patient is alert and oriented 3 currently eating lunch. Patient denies chest pain or shortness breath. Patient denies nausea vomiting or diarrhea. Patient denies any urinary burning or frequency. Patient remains on 15 L high flow BiPAP at rest. Bun 66 creatinine 2.00. Pulmonary cardiology and nephrology services are following On 02/22/2021 patient was seen and examined on the medical floor he is alert and oriented 3 in no apparent distress he is still complaining of cough and shortness of breath otherwise he denies any complaints there is no fever or chills no headache or dizziness step pain no palpitation no nausea or vomiting no abdominal pain no diarrhea no blood in the stools no burning with urination no frequency or urgency and no hematuria patient is still requiring BiPAP On 02/24/2021 patient was seen and examined on the medical floor he is alert and oriented 3 in no distress, he is maintained on oxygen via nasal cannula and is tolerating well he is using BiPAP at night there is no fever or chills no headache or dizziness no chest pain no shortness of breath at rest no cough no nausea or vomiting no abdominal pain no diarrhea no blood in the stools no burning with urination no frequency or urgency and no hematuria On 02/25/2021 patient was seen and examined on the telemetry floor he is alert and oriented 3 in no distress currently he is maintained on BiPAP there is no fever or chills no headache or dizziness no chest pain no shortness of breath no cough no nausea or vomiting no abdominal pain no diarrhea no blood in the stools no burning with urination no frequency or urgency and no hematuria Objective - Vital Signs Vital signs: Vital Signs Temp 98.3 F 02/25/21 07:39 Pulse 92 02/25/21 09:21 Resp 18 02/25/21 07:39 BP 111/70 02/25/21 07:39 Pulse Ox 93 L 02/25/21 07:39 Intake & Output 02/24/21 02/25/21 02/25/21 18:59 06:59 18:59 Intake Total 540 444 Output Total 1350 975 425 Balance -810 -531 -425 Weight 109 kg Intake: Oral 540 444 Output: Urine 900 775 275 Stool 450 200 150 Other: Voiding Method Toilet Toilet Toilet Bedside Commode Bedside Commode Bedside Commode Incontinent Incontinent Incontinent # Voids 2 - Exam In general patient is alert and oriented 3 in no apparent distress HEENT head normocephalic and atraumatic Neck is supple no JVD no goiter no lymphadenopathy Chest exam reveals crackles in both lung zhang no wheezing Cardiac exam reveals irregular heart sounds with tachycardia no murmurs Abdomen is soft nontender no organomegaly with normal bowel sounds Extremity exam reveals 1+ edema, there is a large scabbed ulcer on the left pretibial area with mild surrounding erythema Neurological examination reveals no gross focal deficit - Labs CBC & Chem 7: 02/25/21 08:02 02/25/21 08:02 Labs: Abnormal Lab Results - Last 24 Hours (Table) 02/24/21 02/24/21 02/24/21 Range/Units 11:47 16:51 20:09 RBC (4.30-5.90) m/uL Hgb (13.0-17.5) gm/dL Hct (39.0-53.0) % Sodium (137-145) mmol/L BUN (9-20) mg/dL Creatinine (0.66-1.25) mg/dL Glucose (74-99) mg/dL POC Glucose (mg/dL) 198 H 219 H 258 H (75-99) mg/dL 02/25/21 02/25/21 Range/Units 08:02 08:02 RBC 4.03 L (4.30-5.90) m/uL Hgb 11.7 L (13.0-17.5) gm/dL Hct 35.2 L (39.0-53.0) % Sodium 134 L (137-145) mmol/L BUN 73 H (9-20) mg/dL Creatinine 2.10 H (0.66-1.25) mg/dL Glucose 57 L (74-99) mg/dL POC Glucose (mg/dL) (75-99) mg/dL Assessment and Plan Plan: Acute pneumonia patient was started on IV Rocephin and IV Zithromax. Pulmonary services are following Atrial fibrillation with rapid ventricular response. Patient remains on eliquis for anticoagulation. Senia mendenhall DC'keerthi. Cardiology services are following Acute congestive heart failure exacerbation with check echocardiogram cardiology consultation requested. Patient remains on IV Lasix. Patient has been transitioned to oral Lasix Underlying history of hypertension Underlying history of COPD Underlying history of coronary artery disease Underlying history of hyperlipidemia Underlying history of gout Acute kidney injury. Creatinine up to 3.16. Nephrology services are consulted. Ultrasound of kidneys completed showing findings suggestive of medical renal disease. DVT prophylaxis eliquis. GI prophylaxis Protonix Patient remains on IV Rocephin and Zithromax Cardiology, pulmonary and nephrology services are following
[2021-02-25 11:45] LABS: Glucose,Whole Blood 141 mg/dL (75-99)
--- NOTE | 2021-02-25 14:02 | P.PN ---
Subjective Progress Note Date: 02/25/21 Follow-up for acute kidney injury. On BiPAP, admits good urine output. Denies any urinary retention. Objective - Vital Signs Vital signs: Vital Signs Temp 98 F 02/25/21 11:04 Pulse 96 02/25/21 13:12 Resp 23 02/25/21 11:04 BP 118/69 02/25/21 11:04 Pulse Ox 93 L 02/25/21 11:04 Intake & Output 02/24/21 02/25/21 02/25/21 18:59 06:59 18:59 Intake Total 540 444 300 Output Total 2142 901 3982 Balance -810 -531 -800 Weight 109 kg Intake: IV 60 0.9 10 cefTRIAXone 1 gm In 50 Sodium Chloride 0.9% 50 ml @ 100 mls/hr IVPB Q24HR [facility] Rx#:[id number] Oral 540 444 240 Output: Urine 900 775 800 Stool 450 200 300 Other: Voiding Method Toilet Toilet Toilet Bedside Commode Bedside Commode Bedside Commode Incontinent Incontinent Incontinent # Voids 2 - Exam No acute distress S1-S2 heard decreased breath sounds Edema. - Labs CBC & Chem 7: 02/25/21 08:02 02/25/21 08:02 Labs: Abnormal Lab Results - Last 24 Hours (Table) 02/24/21 02/24/21 02/25/21 Range/Units 16:51 20:09 08:02 RBC 4.03 L (4.30-5.90) m/uL Hgb 11.7 L (13.0-17.5) gm/dL Hct 35.2 L (39.0-53.0) % Sodium (137-145) mmol/L BUN (9-20) mg/dL Creatinine (0.66-1.25) mg/dL Glucose (74-99) mg/dL POC Glucose (mg/dL) 219 H 258 H (75-99) mg/dL 02/25/21 02/25/21 Range/Units 08:02 11:44 RBC (4.30-5.90) m/uL Hgb (13.0-17.5) gm/dL Hct (39.0-53.0) % Sodium 134 L (137-145) mmol/L BUN 73 H (9-20) mg/dL Creatinine 2.10 H (0.66-1.25) mg/dL Glucose 57 L (74-99) mg/dL POC Glucose (mg/dL) 141 H (75-99) mg/dL Assessment and Plan Assessment: #1 Shortness of breath with volume overload. Improved after changing to IV Lasix. #2 chronic kidney disease stage IIIB secondary to diabetic nephropathy with a baseline creatinine of around 2.2 MG per DL. #3 acute on chronic diastolic CHF with pulmonary hypertension #4 mild hyperkalemia. Rule out urinary retention #5 Hypervolemic hyponatremia. Plan: #1 renal function stable. #2 continue with IV Lasix 40 mg twice a day. #3 strict ins and outs and daily weights #4 avoid nephrotoxic agents and hypotensive episodes.
[2021-02-25 16:42] LABS: Glucose,Whole Blood 191 mg/dL (75-99)
[2021-02-25 20:05] LABS: Glucose,Whole Blood 238 mg/dL (75-99)
[2021-02-25] MEDS: LATANOPROST 0.005% OPHTH DROPS 2.5 ML BTL BOTH EYES SCH (21:22)
[2021-02-25] MEDS: INSULIN DETEMIR (LEVEMIR) 100 UNIT/ML SYR SQ SCH (21:23)
[2021-02-25] MEDS: CYCLOBENZAPRINE 10 MG TAB PO PRN (23:07)
[2021-02-26] MEDS ORDERED: DEXTROSE 50% SYRINGE 50 ML IVP ONE ×2 (06:21→06:22)
[2021-02-26 06:25] LABS: Glucose,Whole Blood 35 mg/dL (75-99)
[2021-02-26 06:25] LABS: Glucose,Whole Blood 36 mg/dL (75-99)
[2021-02-26] MEDS: INSULIN ASPART (NovoLOG) 100 UNIT/ML VIAL SQ SCH ×4 (06:30→20:57)
[2021-02-26] MEDS: PANTOPRAZOLE 40 MG TABLET PO SCH (06:33)
[2021-02-26 06:39] LABS: Glucose,Whole Blood 111 mg/dL (75-99)
[2021-02-26] MEDS: FUROSEMIDE 10 MG/ML 4 ML VIAL IV SCH ×2 (08:28→20:57)
[2021-02-26] MEDS: guaiFENesin 600 MG TABLET.ER PO SCH ×2 (08:31→20:57)
[2021-02-26] MEDS: MAGNESIUM OXIDE 400 MG TAB PO SCH ×2 (08:31→20:57)
[2021-02-26] MEDS: FENOFIBRATE 160 MG TAB PO SCH (08:31)
[2021-02-26] MEDS: DILTIAZEM ORAL 30 MG TAB PO SCH ×3 (08:31→21:01)
[2021-02-26] MEDS: ATORVASTATIN 10 MG TAB PO SCH (08:31)
[2021-02-26] MEDS: AZITHROMYCIN 500 MG TAB PO SCH (08:31)
[2021-02-26] MEDS: METOPROLOL SUCCINATE (ER) 50 MG TAB.ER.24H PO SCH ×2 (08:31→20:56)
[2021-02-26] MEDS: APIXABAN 5 MG TAB PO SCH ×2 (08:31→20:57)
[2021-02-26] MEDS: FEBUXOSTAT 80 MG PO SCH (10:37)
[2021-02-26] MEDS: HYDROcodone/APAP 10-325MG 1 EACH TAB PO PRN ×2 (10:58→22:31)
[2021-02-26] MEDS: ALBUTEROL NEBULIZED 2.5 MG/3 ML INHALATION PRN ×2 (11:19→16:24)
[2021-02-26 11:23] LABS: Glucose,Whole Blood 180 mg/dL (75-99)
--- NOTE | 2021-02-26 13:59 | PN ---
PROGRESS NOTE The patient is seen for followup for chronic kidney disease and acute kidney injury. Serum creatinine currently staying at about 1.8-2 mg/dL. The patient is currently being diuresed. He is maintained on Lasix 40 mg IV q.12 hours. This morning, patient is comfortable, mildly short of breath. PHYSICAL EXAMINATION: Blood pressure is 131/77, heart rate of 83 per minute. He is afebrile. EXAMINATION OF THE HEART: S1, S2. EXAMINATION OF LUNGS: Decreased breath sounds at bases. Abdomen is soft, morbidly obese. Examination of lower extremities shows edema 2+ bilaterally. METEOROLOGY PROFESSOR exam grossly intact. LABS: Labs show sodium 134, potassium 4.3, chloride 98, BUN 73, serum creatinine 2.1, hemoglobin 11.7 g/dL. ASSESSMENT: 1. Chronic kidney disease stage 3B secondary to diabetic nephropathy with baseline creatinine around 2 mg/dL, 2-2.2. Renal function close to baseline. 2. Acute on chronic diastolic congestive heart failure with pulmonary hypertension. 3. Hypervolemic hyponatremia. 4. Acute hypoxic respiratory failure secondary to congestive heart failure, currently improving. PLAN: Continue with IV Lasix. Monitor urine output. Repeat labs in a.m. Avoid nephrotoxic agents. MMODL / IJN: [id number] /
--- NOTE | 2021-02-26 15:02 | XR ---
EXAMINATION TYPE: XR chest 1V portable DATE OF EXAM: 02/26/2021 CLINICAL HISTORY: worsening shortness of breath. TECHNIQUE: Portable frontal view of the chest. COMPARISON: 02/22/2021 FINDINGS: Sternotomy wires. Cardiomegaly. There is mildly increased central pulmonary vascular conge stion. There is small bilateral pleural effusion, right greater than left. Right basilar airspace opa cities. No pneumothorax. IMPRESSION: Similar appearance to 02/22/2021 with pulmonary vascular congestion, small bilateral pleural effusions , and right basilar airspace opacities.
[2021-02-26 16:54] LABS: Glucose,Whole Blood 291 mg/dL (75-99)
--- NOTE | 2021-02-26 19:19 | P.PN ---
Subjective Progress Note Date: 02/26/21 Faisal Andrade, is a 70-year-old male who presented to [facility] emergency room with a chief complaint of worsening shortness of breath over several weeks and cough and chest congestion, he was evaluated in the emergency room vital examination on presentation revealed a temperature of 96.7 also 130 respiration 26 blood pressure 142/87 pulse ox 96% on 3 L nasal cannula white blood count was 9.6 hemoglobin 14.1 platelet count 291 sodium 140 potassium 4.7 chloride 110 CO2 20 BUN 58 creatinine 2.4 troponin level was 0.044 BNP was elevated at 5717 Gu virus PCR was negative. Chest x-ray done in the emergency room revealed right lower lobe infiltrate suggestive of pneumonia, EKG revealed evidence of atrial fibrillation with rapid ventricular response. Patient was admitted to telemetry floor, he was started on IV antibiotics ceftriaxone and Zithromax, he was started on Cardizem drip, and IV Lasix, cardiology consultation and pulmonary consultation were requested. On 02/13/2021 patient was seen and examined on the medical floor, he is alert and oriented 3 in no apparent distress he is still complaining of shortness of breath however he noticed some improvement since yesterday he also had some occasional cough otherwise he denies any complaints there is no fever or chills no headache or dizziness no chest pain no nausea or vomiting no abdominal pain no diarrhea no blood in the stools no burning with urination no frequency or urgency and no hematuria he is maintained on IV Lasix his creatinine is going up chronic kidney disease will add a consult for nephrology at this time On 02/14/2021 patient currently resting on BiPAP. Patient does wake up quickly falls back to sleep. Per nursing staff patient remained short of breath with minimal activity. Patient remains on IV Lasix. IV Lasix have been decreased to 2 acute kidney injury. Cardiology, pulmonary and nephrology services are following. Ultrasound kidneys has been ordered per nephrology. At this time patient denies nausea vomiting or diarrhea. Patient denies any urinary burning or frequency On 02/15/2021 patient currently resting on BiPAP. Patient does wake up quickly falls back to sleep. Per nursing staff patient remained short of breath with minimal activity. he is still complaining of shortness of breath however he noticed some improvement since yesterday he also had some occasional cough otherwise he denies any complaints there is no fever or chills no headache or dizziness no chest pain no nausea or vomiting no abdominal pain no diarrhea no blood in the stools no burning with urination no frequency or urgency and no hematuria he is maintained on IV Lasix his creatinine is going up chronic kidney disease will add a consult for nephrology at this time. Patient remains on IV La six. IV Lasix have been decreased to 2 acute kidney injury. Cardiology, pulmonary and nephrology services are following. Ultrasound kidneys has been ordered per nephrology. At this time patient denies nausea vomiting or diarrhea. Patient denies any urinary burning or frequency On 02/16/2021 patient currently resting on BiPAP. Patient does wake up was able to keep breakfast. Patient maintained on IV Lasix 40 mg twice a day. Ultrasound of kidneys completed showing findings suggestive of medical renal disease. Repeat labs have been ordered. Patient denies chest pain. Patient denies nausea vomiting or diarrhea. Patient denies any urinary burning or frequency. Cardiology, pulmonary and nephrology services are following On 02/17/2021 patient's alert and oriented 3. Patient currently resting on BiPAP. Patient reports he is starting to feel better. Creatinine and bun trending down. Patient does report some shortness breath but does state this is improved. Patient denies chest pain. Patient denies nausea vomiting or diarrhea. Patient denies any urinary burning or frequency. Patient remains on azithromycin and Rocephin for IV antibiotics. IV Lasix 40 mg every 12 hours. Cardiology, pulmonary and nephrology following On 02/18/2021 patient was seen and examined on the medical floor he is alert and oriented 3 in no apparent distress he is still complaining of cough and shortness of breath otherwise he denies any complaints there is no fever or chills no headache or dizziness step pain no palpitation no nausea or vomiting no abdominal pain no diarrhea no blood in the stools no burning with urination no frequency or urgency and no hip On 02/19/2021 Patient was seen and examined on the medical floor, he is alert and oriented x 3 in no distress, he denies any complaints there is no fever or chills no headache or dizziness no chest pain no shortness of breath no palpitation no nausea or vomiting no abdominal pain no diarrhea no blood in the stools no burning with urination no frequency or urgency and no hematuria, there is no weakness or numbness in any of the extremities no change in vision speech or gait. He is still complaining of cough, will add Mucinex and try to obtain a sputum sample for culture. On 02/20/2021 Patient was seen and examined on the medical floor, he is alert and oriented x 3 in no distress, he denies any complaints there is no fever or chills no headache or dizziness no chest pain no shortness of breath no palpitation no cough no nausea or vomiting no abdominal pain no diarrhea no blood in the stools no burning with urination no frequency or urgency and no hematuria, there is no weakness or numbness in any of the extremities no change in vision speech or gait. Vital exam reveals a temperature of 97.9 pulse 1 or 2 respiration 20 lungs pressure 130/88 pulse ox 89% on 15 L high flow cannula. White blood count is 9.3 hemoglobin 12.9 platelet count 207 sodium 139 potassium 3.7 chloride 102 CO2 27 BUN 66 creatinine 1.75 On 02/21/2021 patient is alert and oriented 3 currently eating lunch. Patient denies chest pain or shortness breath. Patient denies nausea vomiting or diarrhea. Patient denies any urinary burning or frequency. Patient remains on 15 L high flow BiPAP at rest. Bun 66 creatinine 2.00. Pulmonary cardiology and nephrology services are following On 02/22/2021 patient was seen and examined on the medical floor he is alert and oriented 3 in no apparent distress he is still complaining of cough and shortness of breath otherwise he denies any complaints there is no fever or chills no headache or dizziness step pain no palpitation no nausea or vomiting no abdominal pain no diarrhea no blood in the stools no burning with urination no frequency or urgency and no hematuria patient is still requiring BiPAP On 02/24/2021 patient was seen and examined on the medical floor he is alert and oriented 3 in no distress, he is maintained on oxygen via nasal cannula and is tolerating well he is using BiPAP at night there is no fever or chills no headache or dizziness no chest pain no shortness of breath at rest no cough no nausea or vomiting no abdominal pain no diarrhea no blood in the stools no burning with urination no frequency or urgency and no hematuria On 02/25/2021 patient was seen and examined on the telemetry floor he is alert and oriented 3 in no distress currently he is maintained on BiPAP there is no fever or chills no headache or dizziness no chest pain no shortness of breath no cough no nausea or vomiting no abdominal pain no diarrhea no blood in the stools no burning with urination no frequency or urgency and no hematuria On 02/26/2021 patient was seen and examined on the telemetry floor he is alert and oriented, he is maintained on BiPAP he has worsening shortness of breath today. there is no fever or chills no headache or dizziness no chest pain no shortness of breath no cough no nausea or vomiting no abdominal pain no diarrhea no blood in the stools no burning with urination no frequency or urgency and no hematuria. will repeat CXR today. Objective - Vital Signs Vital signs: Vital Signs Temp 98.5 F 02/26/21 12:34 Pulse 83 02/26/21 12:34 Resp 21 02/26/21 12:34 BP 92/56 02/26/21 12:34 Pulse Ox 97 02/26/21 12:34 Intake & Output 02/25/21 02/26/21 02/26/21 18:59 06:59 18:59 Intake Total 540 Output Total 205 610 550 Balance -1510 -610 -550 Weight 110.5 kg Intake: IV 60 0.9 10 cefTRIAXone 1 gm In 50 Sodium Chloride 0.9% 50 ml @ 100 mls/hr IVPB Q24HR [facility] Rx#:[id number] Oral 480 Output: Urine 1400 510 400 Stool 650 100 150 Other: Voiding Method Toilet Urinal Bedside Commode Incontinent - Exam In general patient is alert and oriented 3 in no apparent distress HEENT head normocephalic and atraumatic Neck is supple no JVD no goiter no lymphadenopathy Chest exam reveals crackles in both lung zhang no wheezing Cardiac exam reveals irregular heart sounds with tachycardia no murmurs Abdomen is soft nontender no organomegaly with normal bowel sounds Extremity exam reveals 1+ edema, there is a large scabbed ulcer on the left pretibial area with mild surrounding erythema Neurological examination reveals no gross focal deficit - Labs CBC & Chem 7: 02/25/21 08:02 02/25/21 08:02 Labs: Abnormal Lab Results - Last 24 Hours (Table) 02/25/21 02/25/21 02/26/21 Range/Units 16:41 20:04 06:18 POC Glucose (mg/dL) 191 H 238 H 36 L (75-99) mg/dL 02/26/21 02/26/21 02/26/21 Range/Units 06:20 06:36 11:20 POC Glucose (mg/dL) 35 L 111 H 180 H (75-99) mg/dL Assessment and Plan Plan: Acute pneumonia patient was started on IV Rocephin and IV Zithromax. Pulmonary services are following Atrial fibrillation with rapid ventricular response. Patient remains on eliquis for anticoagulation. Cardizem abdirashid DC'd. Cardiology services are following Acute congestive heart failure exacerbation with check echocardiogram cardiology consultation requested. Patient remains on IV Lasix. Patient has been transitioned to oral Lasix Underlying history of hypertension Underlying history of COPD Underlying history of coronary artery disease Underlying history of hyperlipidemia Underlying history of gout Acute kidney injury. Creatinine up to 3.16. Nephrology services are consulted. Ultrasound of kidneys completed showing findings suggestive of medical renal disease. DVT prophylaxis eliquis. GI prophylaxis Protonix Patient remains on IV Rocephin and Zithromax Cardiology, pulmonary and nephrology services are following
[2021-02-26 20:47] LABS: Glucose,Whole Blood 221 mg/dL (75-99)
[2021-02-26] MEDS: INSULIN DETEMIR (LEVEMIR) 100 UNIT/ML SYR SQ SCH (20:57)
[2021-02-26] MEDS: LATANOPROST 0.005% OPHTH DROPS 2.5 ML BTL BOTH EYES SCH (22:19)
[2021-02-26] MEDS: CYCLOBENZAPRINE 10 MG TAB PO PRN (22:31)
[2021-02-27 01:59] LABS: Glucose,Whole Blood 246 mg/dL (75-99)
[2021-02-27 06:48] LABS: Glucose,Whole Blood 131 mg/dL (75-99)
[2021-02-27] MEDS: PANTOPRAZOLE 40 MG TABLET PO SCH (07:06)
[2021-02-27] MEDS: INSULIN ASPART (NovoLOG) 100 UNIT/ML VIAL SQ SCH ×4 (07:06→20:18)
[2021-02-27] MEDS: HYDROcodone/APAP 10-325MG 1 EACH TAB PO PRN ×3 (07:11→23:29)
[2021-02-27 07:54] LABS: Basophils # (A) 0.1 k/uL (0-0.2); Basophils % (A) 1 %; Eosinophils # (A) 0.3 k/uL (0-0.7); Eosinophils % (A) 3 %; HCT 37.6 % (39.0-53.0); HGB 11.5 gm/dL (13.0-17.5); Hypochromasia Slight; Lymphocytes # (A) 1.4 k/uL (1.0-4.8); Lymphocytes % (A) 17 %; MCHC 30.7 g/dL (31.0-37.0); MCV 88.1 fL (80.0-100.0); Mean Platelet Volume 7.8; Monocytes # (A) 0.7 k/uL (0-1.0); Monocytes % (A) 8 %; Neutrophils % (A) 70 %; Platelet Count 280 k/uL (150-450); RBC 4.27 m/uL (4.30-5.90); RDW 15.4 % (11.5-15.5); WBC 8.5 k/uL (3.8-10.6)
[2021-02-27 08:22] LABS: Albumin 2.9 g/dL (3.5-5.0); Calcium 9.1 mg/dL (8.4-10.2); Potassium 4.4 mmol/L (3.5-5.1); Total Bilirubin 0.4 mg/dL (0.2-1.3); Total Protein 5.6 g/dL (6.3-8.2)
[2021-02-27] MEDS: ALBUTEROL NEBULIZED 2.5 MG/3 ML INHALATION PRN ×2 (08:38→15:54)
[2021-02-27] MEDS: FUROSEMIDE 10 MG/ML 4 ML VIAL IV SCH ×2 (09:02→20:18)
[2021-02-27] MEDS: APIXABAN 5 MG TAB PO SCH ×2 (09:02→20:18)
[2021-02-27] MEDS: ERGOCALCIFEROL 1,250 MCG (50,000 IU) CAPSULE PO SCH (09:02)
[2021-02-27] MEDS: AZITHROMYCIN 500 MG TAB PO SCH (09:02)
[2021-02-27] MEDS: ATORVASTATIN 10 MG TAB PO SCH (09:02)
[2021-02-27] MEDS: FENOFIBRATE 160 MG TAB PO SCH (09:02)
[2021-02-27] MEDS: MAGNESIUM OXIDE 400 MG TAB PO SCH ×2 (09:02→20:18)
[2021-02-27] MEDS: METOPROLOL SUCCINATE (ER) 50 MG TAB.ER.24H PO SCH ×2 (09:02→20:18)
[2021-02-27] MEDS: DILTIAZEM ORAL 30 MG TAB PO SCH ×3 (09:02→20:19)
[2021-02-27] MEDS: guaiFENesin 600 MG TABLET.ER PO SCH ×2 (09:03→20:18)
[2021-02-27] MEDS: FEBUXOSTAT 80 MG PO SCH (09:04)
[2021-02-27 12:35] LABS: Glucose,Whole Blood 121 mg/dL (75-99)
--- NOTE | 2021-02-27 15:32 | PN ---
PROGRESS NOTE Patient is seen for followup for acute kidney injury, mostly cardiorenal. Patient also has underlying chronic kidney disease with baseline creatinine about 2 mg/dL. He is currently being diuresed for volume overload and CHF exacerbation. Overall, patient states he is feeling better. PHYSICAL EXAMINATION: On examination today, blood pressure is 124/78, heart rate 76 per minute. He is afebrile. EXAMINATION OF THE HEART: S1 and S2. EXAMINATION OF LUNGS: Bilateral breath sounds are heard. ABDOMEN: Soft, morbidly obese. Examination of lower extremities shows chronic skin changes, chronic edema bilaterally. [employer]ER exam is grossly intact. LABS: Sodium 138, potassium 4.4, chloride 99, BUN 59, serum creatinine 2.07, hemoglobin 11.5 g/dL. ASSESSMENT: 1. Chronic kidney disease with fairly stable renal function, creatinine staying at about 2 mg/dL. 2. Chronic kidney disease, stage IIIB, secondary to diabetic nephropathy. 3. Acute on chronic diastolic congestive heart failure with pulmonary hypertension, currently improved. 4. Hypervolemic hyponatremia, improved. 5. Acute hypoxic respiratory failure secondary to congestive heart failure, currently improving. PLAN: May continue with the IV Lasix for now. Salt and fluid restriction discussed with the patient. Maintain followup as outpatient for CKD. MMODL / IJN: [id number] /
[2021-02-27 17:17] LABS: Glucose,Whole Blood 306 mg/dL (75-99)
--- NOTE | 2021-02-27 17:18 | P.PN ---
Subjective Progress Note Date: 02/27/21 Faisal Andrade, is a 70-year-old male who presented to [facility] emergency room with a chief complaint of worsening shortness of breath over several weeks and cough and chest congestion, he was evaluated in the emergency room vital examination on presentation revealed a temperature of 96.7 also 130 respiration 26 blood pressure 142/87 pulse ox 96% on 3 L nasal cannula white blood count was 9.6 hemoglobin 14.1 platelet count 291 sodium 140 potassium 4.7 chloride 110 CO2 20 BUN 58 creatinine 2.4 troponin level was 0.044 BNP was elevated at 5717 Gu virus PCR was negative. Chest x-ray done in the emergency room revealed right lower lobe infiltrate suggestive of pneumonia, EKG revealed evidence of atrial fibrillation with rapid ventricular response. Patient was admitted to telemetry floor, he was started on IV antibiotics ceftriaxone and Zithromax, he was started on Cardizem drip, and IV Lasix, cardiology consultation and pulmonary consultation were requested. On 02/13/2021 patient was seen and examined on the medical floor, he is alert and oriented 3 in no apparent distress he is still complaining of shortness of breath however he noticed some improvement since yesterday he also had some occasional cough otherwise he denies any complaints there is no fever or chills no headache or dizziness no chest pain no nausea or vomiting no abdominal pain no diarrhea no blood in the stools no burning with urination no frequency or urgency and no hematuria he is maintained on IV Lasix his creatinine is going up chronic kidney disease will add a consult for nephrology at this time On 02/14/2021 patient currently resting on BiPAP. Patient does wake up quickly falls back to sleep. Per nursing staff patient remained short of breath with minimal activity. Patient remains on IV Lasix. IV Lasix have been decreased to 2 acute kidney injury. Cardiology, pulmonary and nephrology services are following. Ultrasound kidneys has been ordered per nephrology. At this time patient denies nausea vomiting or diarrhea. Patient denies any urinary burning or frequency On 02/15/2021 patient currently resting on BiPAP. Patient does wake up quickly falls back to sleep. Per nursing staff patient remained short of breath with minimal activity. he is still complaining of shortness of breath however he noticed some improvement since yesterday he also had some occasional cough otherwise he denies any complaints there is no fever or chills no headache or dizziness no chest pain no nausea or vomiting no abdominal pain no diarrhea no blood in the stools no burning with urination no frequency or urgency and no hematuria he is maintained on IV Lasix his creatinine is going up chronic kidney disease will add a consult for nephrology at this time. Patient remains on IV La six. IV Lasix have been decreased to 2 acute kidney injury. Cardiology, pulmonary and nephrology services are following. Ultrasound kidneys has been ordered per nephrology. At this time patient denies nausea vomiting or diarrhea. Patient denies any urinary burning or frequency On 02/16/2021 patient currently resting on BiPAP. Patient does wake up was able to keep breakfast. Patient maintained on IV Lasix 40 mg twice a day. Ultrasound of kidneys completed showing findings suggestive of medical renal disease. Repeat labs have been ordered. Patient denies chest pain. Patient denies nausea vomiting or diarrhea. Patient denies any urinary burning or frequency. Cardiology, pulmonary and nephrology services are following On 02/17/2021 patient's alert and oriented 3. Patient currently resting on BiPAP. Patient reports he is starting to feel better. Creatinine and bun trending down. Patient does report some shortness breath but does state this is improved. Patient denies chest pain. Patient denies nausea vomiting or diarrhea. Patient denies any urinary burning or frequency. Patient remains on azithromycin and Rocephin for IV antibiotics. IV Lasix 40 mg every 12 hours. Cardiology, pulmonary and nephrology following On 02/18/2021 patient was seen and examined on the medical floor he is alert and oriented 3 in no apparent distress he is still complaining of cough and shortness of breath otherwise he denies any complaints there is no fever or chills no headache or dizziness step pain no palpitation no nausea or vomiting no abdominal pain no diarrhea no blood in the stools no burning with urination no frequency or urgency and no hip On 02/19/2021 Patient was seen and examined on the medical floor, he is alert and oriented x 3 in no distress, he denies any complaints there is no fever or chills no headache or dizziness no chest pain no shortness of breath no palpitation no nausea or vomiting no abdominal pain no diarrhea no blood in the stools no burning with urination no frequency or urgency and no hematuria, there is no weakness or numbness in any of the extremities no change in vision speech or gait. He is still complaining of cough, will add Mucinex and try to obtain a sputum sample for culture. On 02/20/2021 Patient was seen and examined on the medical floor, he is alert and oriented x 3 in no distress, he denies any complaints there is no fever or chills no headache or dizziness no chest pain no shortness of breath no palpitation no cough no nausea or vomiting no abdominal pain no diarrhea no blood in the stools no burning with urination no frequency or urgency and no hematuria, there is no weakness or numbness in any of the extremities no change in vision speech or gait. Vital exam reveals a temperature of 97.9 pulse 1 or 2 respiration 20 lungs pressure 130/88 pulse ox 89% on 15 L high flow cannula. White blood count is 9.3 hemoglobin 12.9 platelet count 207 sodium 139 potassium 3.7 chloride 102 CO2 27 BUN 66 creatinine 1.75 On 02/21/2021 patient is alert and oriented 3 currently eating lunch. Patient denies chest pain or shortness breath. Patient denies nausea vomiting or diarrhea. Patient denies any urinary burning or frequency. Patient remains on 15 L high flow BiPAP at rest. Bun 66 creatinine 2.00. Pulmonary cardiology and nephrology services are following On 02/22/2021 patient was seen and examined on the medical floor he is alert and oriented 3 in no apparent distress he is still complaining of cough and shortness of breath otherwise he denies any complaints there is no fever or chills no headache or dizziness step pain no palpitation no nausea or vomiting no abdominal pain no diarrhea no blood in the stools no burning with urination no frequency or urgency and no hematuria patient is still requiring BiPAP On 02/24/2021 patient was seen and examined on the medical floor he is alert and oriented 3 in no distress, he is maintained on oxygen via nasal cannula and is tolerating well he is using BiPAP at night there is no fever or chills no headache or dizziness no chest pain no shortness of breath at rest no cough no nausea or vomiting no abdominal pain no diarrhea no blood in the stools no burning with urination no frequency or urgency and no hematuria On 02/25/2021 patient was seen and examined on the telemetry floor he is alert and oriented 3 in no distress currently he is maintained on BiPAP there is no fever or chills no headache or dizziness no chest pain no shortness of breath no cough no nausea or vomiting no abdominal pain no diarrhea no blood in the stools no burning with urination no frequency or urgency and no hematuria On 02/26/2021 patient was seen and examined on the telemetry floor he is alert and oriented, he is maintained on BiPAP he has worsening shortness of breath today. there is no fever or chills no headache or dizziness no chest pain no shortness of breath no cough no nausea or vomiting no abdominal pain no diarrhea no blood in the stools no burning with urination no frequency or urgency and no hematuria. will repeat CXR today. On 02/27/2021 patient was seen and examined on the medical floor he is alert and oriented 3 in no apparent distress he is still complaining of shortness of breath however he feels better than yesterday otherwise he denies any complaints at this time, repeat chest x-ray done yesterday did not reveal any significant change from prior, at this time I would ask pulmonary to reevaluate him again, patient received IV antibiotic for 14 days, I would discontinue IV antibiotic and start Omnicef orally, will follow closely possible discharge soon if stable. Objective - Vital Signs Vital signs: Vital Signs Temp 98.8 F 02/27/21 08:20 Pulse 98 02/27/21 08:49 Resp 20 02/27/21 08:20 BP 93/65 02/27/21 08:20 Pulse Ox 96 02/27/21 08:38 Intake & Output 02/26/21 02/27/21 02/27/21 18:59 06:59 18:59 Intake Total 770 20 120 Output Total 1150 1000 1000 Balance -380 -980 -880 Weight 109 kg Intake: IV 20 Invasive Line 3 20 Intake, IV Titration 50 Amount cefTRIAXone 1 gm In 50 Sodium Chloride 0.9% 50 ml @ 100 mls/hr IVPB Q24HR [facility]ENDING [facility] TO [facility] Rx#:[id number] Oral 720 120 Output: Urine 800 700 700 Stool 350 300 300 Other: Voiding Method Urinal - Exam In general patient is alert and oriented 3 in no apparent distress HEENT head normocephalic and atraumatic Neck is supple no JVD no goiter no lymphadenopathy Chest exam reveals crackles in both lung zhang no wheezing Cardiac exam reveals irregular heart sounds with tachycardia no murmurs Abdomen is soft nontender no organomegaly with normal bowel sounds Extremity exam reveals 1+ edema, there is a large scabbed ulcer on the left pretibial area with mild surrounding erythema Neurological examination reveals no gross focal deficit - Labs CBC & Chem 7: 02/27/21 07:06 02/27/21 07:06 Labs: Abnormal Lab Results - Last 24 Hours (Table) 02/26/21 02/26/21 02/26/21 Range/Units 11:20 16:52 20:45 RBC (4.30-5.90) m/uL Hgb (13.0-17.5) gm/dL Hct (39.0-53.0) % MCHC (31.0-37.0) g/dL Carbon Dioxide (22-30) mmol/L BUN (9-20) mg/dL Creatinine (0.66-1.25) mg/dL Glucose (74-99) mg/dL POC Glucose (mg/dL) 180 H 291 H 221 H (75-99) mg/dL Total Protein (6.3-8.2) g/dL Albumin (3.5-5.0) g/dL 02/27/21 02/27/21 02/27/21 Range/Units 01:58 06:46 07:06 RBC 4.27 L (4.30-5.90) m/uL Hgb 11.5 L (13.0-17.5) gm/dL Hct 37.6 L (39.0-53.0) % MCHC 30.7 L (31.0-37.0) g/dL Carbon Dioxide (22-30) mmol/L BUN (9-20) mg/dL Creatinine (0.66-1.25) mg/dL Glucose (74-99) mg/dL POC Glucose (mg/dL) 246 H 131 H (75-99) mg/dL Total Protein (6.3-8.2) g/dL Albumin (3.5-5.0) g/dL 02/27/21 Range/Units 07:06 RBC (4.30-5.90) m/uL Hgb (13.0-17.5) gm/dL Hct (39.0-53.0) % MCHC (31.0-37.0) g/dL Carbon Dioxide 31 H (22-30) mmol/L BUN 59 H (9-20) mg/dL Creatinine 2.07 H (0.66-1.25) mg/dL Glucose 126 H (74-99) mg/dL POC Glucose (mg/dL) (75-99) mg/dL Total Protein 5.6 L (6.3-8.2) g/dL Albumin 2.9 L (3.5-5.0) g/dL Assessment and Plan Plan: Acute pneumonia patient was started on IV Rocephin and IV Zithromax. Pulmonary services are following Atrial fibrillation with rapid ventricular response. Patient remains on eliquis for anticoagulation. [facility] Cardiology services are following Acute congestive heart failure exacerbation with check echocardiogram cardiology consultation requested. Patient remains on IV Lasix. Patient has been transitioned to oral Lasix Underlying history of hypertension Underlying history of COPD Underlying history of coronary artery disease Underlying history of hyperlipidemia Underlying history of gout Acute kidney injury. Creatinine up to 3.16. Nephrology services are consulted. Ultrasound of kidneys completed showing findings suggestive of medical renal disease. DVT prophylaxis eliquis. GI prophylaxis Protonix Patient remains on IV Rocephin and Zithromax Cardiology, pulmonary and nephrology services are following
[2021-02-27 19:55] LABS: Glucose,Whole Blood 310 mg/dL (75-99)
[2021-02-27] MEDS: INSULIN DETEMIR (LEVEMIR) 100 UNIT/ML SYR SQ SCH (20:19)
[2021-02-27] MEDS: LATANOPROST 0.005% OPHTH DROPS 2.5 ML BTL BOTH EYES SCH (20:20)
[2021-02-27] MEDS: CYCLOBENZAPRINE 10 MG TAB PO PRN (23:29)
[2021-02-28 06:15] LABS: Glucose,Whole Blood 81 mg/dL (75-99)
[2021-02-28] MEDS: INSULIN ASPART (NovoLOG) 100 UNIT/ML VIAL SQ SCH ×4 (06:18→20:52)
[2021-02-28] MEDS: PANTOPRAZOLE 40 MG TABLET PO SCH (06:40)
[2021-02-28] MEDS: FENOFIBRATE 160 MG TAB PO SCH (08:31)
[2021-02-28] MEDS: APIXABAN 5 MG TAB PO SCH ×2 (08:31→20:52)
[2021-02-28] MEDS: METOPROLOL SUCCINATE (ER) 50 MG TAB.ER.24H PO SCH ×2 (08:31→20:52)
[2021-02-28] MEDS: ATORVASTATIN 10 MG TAB PO SCH (08:31)
[2021-02-28] MEDS: FUROSEMIDE 10 MG/ML 4 ML VIAL IV SCH ×2 (08:31→20:52)
[2021-02-28] MEDS: MAGNESIUM OXIDE 400 MG TAB PO SCH ×2 (08:31→20:52)
[2021-02-28] MEDS: DILTIAZEM ORAL 30 MG TAB PO SCH ×3 (08:31→20:52)
[2021-02-28] MEDS: AZITHROMYCIN 500 MG TAB PO SCH (08:31)
[2021-02-28] MEDS: guaiFENesin 600 MG TABLET.ER PO SCH ×2 (08:31→20:52)
[2021-02-28] MEDS: FEBUXOSTAT 80 MG PO SCH (08:32)
[2021-02-28] MEDS: ALBUTEROL NEBULIZED 2.5 MG/3 ML INHALATION PRN ×2 (08:47→11:47)
[2021-02-28 09:55] LABS: Basophils # (A) 0.1 k/uL (0-0.2); Basophils % (A) 1 %; Eosinophils # (A) 0.3 k/uL (0-0.7); Eosinophils % (A) 4 %; HCT 35.8 % (39.0-53.0); HGB 11.6 gm/dL (13.0-17.5); Lymphocytes # (A) 1.3 k/uL (1.0-4.8); Lymphocytes % (A) 14 %; MCH 28.4 pg (25.0-35.0); MCHC 32.5 g/dL (31.0-37.0); MCV 87.3 fL (80.0-100.0); Mean Platelet Volume 7.9; Monocytes # (A) 0.7 k/uL (0-1.0); Monocytes % (A) 8 %; Neutrophils # (A) 6.7 k/uL (1.3-7.7); Neutrophils % (A) 73 %; Platelet Count 262 k/uL (150-450); RDW 15.3 % (11.5-15.5); WBC 9.2 k/uL (3.8-10.6)
[2021-02-28 10:17] LABS: Calcium 9.1 mg/dL (8.4-10.2); Potassium 4.2 mmol/L (3.5-5.1); Total Bilirubin 0.5 mg/dL (0.2-1.3); Total Protein 5.6 g/dL (6.3-8.2)
[2021-02-28 11:53] LABS: Glucose,Whole Blood 131 mg/dL (75-99)
--- NOTE | 2021-02-28 12:19 | P.PN ---
Subjective Progress Note Date: 02/28/21 Faisal Andrade, is a 70-year-old male who presented to [facility] emergency room with a chief complaint of worsening shortness of breath over several weeks and cough and chest congestion, he was evaluated in the emergency room vital examination on presentation revealed a temperature of 96.7 also 130 respiration 26 blood pressure 142/87 pulse ox 96% on 3 L nasal cannula white blood count was 9.6 hemoglobin 14.1 platelet count 291 sodium 140 potassium 4.7 chloride 110 CO2 20 BUN 58 creatinine 2.4 troponin level was 0.044 BNP was elevated at 5717 Gu virus PCR was negative. Chest x-ray done in the emergency room revealed right lower lobe infiltrate suggestive of pneumonia, EKG revealed evidence of atrial fibrillation with rapid ventricular response. Patient was admitted to telemetry floor, he was started on IV antibiotics ceftriaxone and Zithromax, he was started on Cardizem drip, and IV Lasix, cardiology consultation and pulmonary consultation were requested. On 02/13/2021 patient was seen and examined on the medical floor, he is alert and oriented 3 in no apparent distress he is still complaining of shortness of breath however he noticed some improvement since yesterday he also had some occasional cough otherwise he denies any complaints there is no fever or chills no headache or dizziness no chest pain no nausea or vomiting no abdominal pain no diarrhea no blood in the stools no burning with urination no frequency or urgency and no hematuria he is maintained on IV Lasix his creatinine is going up chronic kidney disease will add a consult for nephrology at this time On 02/14/2021 patient currently resting on BiPAP. Patient does wake up quickly falls back to sleep. Per nursing staff patient remained short of breath with minimal activity. Patient remains on IV Lasix. IV Lasix have been decreased to 2 acute kidney injury. Cardiology, pulmonary and nephrology services are following. Ultrasound kidneys has been ordered per nephrology. At this time patient denies nausea vomiting or diarrhea. Patient denies any urinary burning or frequency On 02/15/2021 patient currently resting on BiPAP. Patient does wake up quickly falls back to sleep. Per nursing staff patient remained short of breath with minimal activity. he is still complaining of shortness of breath however he noticed some improvement since yesterday he also had some occasional cough otherwise he denies any complaints there is no fever or chills no headache or dizziness no chest pain no nausea or vomiting no abdominal pain no diarrhea no blood in the stools no burning with urination no frequency or urgency and no hematuria he is maintained on IV Lasix his creatinine is going up chronic kidney disease will add a consult for nephrology at this time. Patient remains on IV La six. IV Lasix have been decreased to 2 acute kidney injury. Cardiology, pulmonary and nephrology services are following. Ultrasound kidneys has been ordered per nephrology. At this time patient denies nausea vomiting or diarrhea. Patient denies any urinary burning or frequency On 02/16/2021 patient currently resting on BiPAP. Patient does wake up was able to keep breakfast. Patient maintained on IV Lasix 40 mg twice a day. Ultrasound of kidneys completed showing findings suggestive of medical renal disease. Repeat labs have been ordered. Patient denies chest pain. Patient denies nausea vomiting or diarrhea. Patient denies any urinary burning or frequency. Cardiology, pulmonary and nephrology services are following On 02/17/2021 patient's alert and oriented 3. Patient currently resting on BiPAP. Patient reports he is starting to feel better. Creatinine and bun trending down. Patient does report some shortness breath but does state this is improved. Patient denies chest pain. Patient denies nausea vomiting or diarrhea. Patient denies any urinary burning or frequency. Patient remains on azithromycin and Rocephin for IV antibiotics. IV Lasix 40 mg every 12 hours. Cardiology, pulmonary and nephrology following On 02/18/2021 patient was seen and examined on the medical floor he is alert and oriented 3 in no apparent distress he is still complaining of cough and shortness of breath otherwise he denies any complaints there is no fever or chills no headache or dizziness step pain no palpitation no nausea or vomiting no abdominal pain no diarrhea no blood in the stools no burning with urination no frequency or urgency and no hip On 02/19/2021 Patient was seen and examined on the medical floor, he is alert and oriented x 3 in no distress, he denies any complaints there is no fever or chills no headache or dizziness no chest pain no shortness of breath no palpitation no nausea or vomiting no abdominal pain no diarrhea no blood in the stools no burning with urination no frequency or urgency and no hematuria, there is no weakness or numbness in any of the extremities no change in vision speech or gait. He is still complaining of cough, will add Mucinex and try to obtain a sputum sample for culture. On 02/20/2021 Patient was seen and examined on the medical floor, he is alert and oriented x 3 in no distress, he denies any complaints there is no fever or chills no headache or dizziness no chest pain no shortness of breath no palpitation no cough no nausea or vomiting no abdominal pain no diarrhea no blood in the stools no burning with urination no frequency or urgency and no hematuria, there is no weakness or numbness in any of the extremities no change in vision speech or gait. Vital exam reveals a temperature of 97.9 pulse 1 or 2 respiration 20 lungs pressure 130/88 pulse ox 89% on 15 L high flow cannula. White blood count is 9.3 hemoglobin 12.9 platelet count 207 sodium 139 potassium 3.7 chloride 102 CO2 27 BUN 66 creatinine 1.75 On 02/21/2021 patient is alert and oriented 3 currently eating lunch. Patient denies chest pain or shortness breath. Patient denies nausea vomiting or diarrhea. Patient denies any urinary burning or frequency. Patient remains on 15 L high flow BiPAP at rest. Bun 66 creatinine 2.00. Pulmonary cardiology and nephrology services are following On 02/22/2021 patient was seen and examined on the medical floor he is alert and oriented 3 in no apparent distress he is still complaining of cough and shortness of breath otherwise he denies any complaints there is no fever or chills no headache or dizziness step pain no palpitation no nausea or vomiting no abdominal pain no diarrhea no blood in the stools no burning with urination no frequency or urgency and no hematuria patient is still requiring BiPAP On 02/24/2021 patient was seen and examined on the medical floor he is alert and oriented 3 in no distress, he is maintained on oxygen via nasal cannula and is tolerating well he is using BiPAP at night there is no fever or chills no headache or dizziness no chest pain no shortness of breath at rest no cough no nausea or vomiting no abdominal pain no diarrhea no blood in the stools no burning with urination no frequency or urgency and no hematuria On 02/25/2021 patient was seen and examined on the telemetry floor he is alert and oriented 3 in no distress currently he is maintained on BiPAP there is no fever or chills no headache or dizziness no chest pain no shortness of breath no cough no nausea or vomiting no abdominal pain no diarrhea no blood in the stools no burning with urination no frequency or urgency and no hematuria On 02/26/2021 patient was seen and examined on the telemetry floor he is alert and oriented, he is maintained on BiPAP he has worsening shortness of breath today. there is no fever or chills no headache or dizziness no chest pain no shortness of breath no cough no nausea or vomiting no abdominal pain no diarrhea no blood in the stools no burning with urination no frequency or urgency and no hematuria. will repeat CXR today. On 02/27/2021 patient was seen and examined on the medical floor he is alert and oriented 3 in no apparent distress he is still complaining of shortness of breath however he feels better than yesterday otherwise he denies any complaints at this time, repeat chest x-ray done yesterday did not reveal any significant change from prior, at this time I would ask pulmonary to reevaluate him again, patient received IV antibiotic for 14 days, I would discontinue IV antibiotic and start Omnicef orally, will follow closely possible discharge soon if stable. On 02/28/2021 patient's alert and oriented 3. Patient reports that he is feeling better. High flow decreased to 5 L. Pulmonary services reconsulted. Patient maintained on IV Lasix. Antibiotics adjusted to Omnicef. Patient will likely need home O2 upon discharge. Patient is improving progressing slowly. Discharge planning in place. Patient denies any chest pain. Patient denies nausea vomiting or diarrhea. Patient denies any urinary burning or frequency Objective - Vital Signs Vital signs: Vital Signs Temp 98 F 02/28/21 11:52 Pulse 88 02/28/21 11:57 Resp 20 02/28/21 11:52 BP 123/71 02/28/21 11:52 Pulse Ox 92 L 02/28/21 11:52 Intake & Output 02/27/21 02/28/21 02/28/21 18:59 06:59 18:59 Intake Total 1040 240 Output Total 2500 1650 325 Balance -1460 -1649 -85 Weight 109.77 kg Intake: IV 180 0.9 80 cefTRIAXone 1 gm In 100 Sodium Chloride 0.9% 50 ml @ 100 mls/hr IVPB Q24HR [facility] Rx#:[id number] Oral 860 240 Output: Urine 1800 1050 325 Stool 700 600 Other: Voiding Method Urinal - Exam In general patient is alert and oriented 3 in no apparent distress HEENT head normocephalic and atraumatic Neck is supple no JVD no goiter no lymphadenopathy Chest exam reveals crackles in both lung zhang no wheezing Cardiac exam reveals irregular heart sounds with tachycardia no murmurs Abdomen is soft nontender no organomegaly with normal bowel sounds Extremity exam reveals 1+ edema, there is a large scabbed ulcer on the left pretibial area with mild surrounding erythema Neurological examination reveals no gross focal deficit - Labs CBC & Chem 7: 02/28/21 09:34 02/28/21 09:34 Labs: Abnormal Lab Results - Last 24 Hours (Table) 02/27/21 02/27/21 02/27/21 Range/Units 12:34 17:15 19:52 RBC (4.30-5.90) m/uL Hgb (13.0-17.5) gm/dL Hct (39.0-53.0) % Sodium (137-145) mmol/L BUN (9-20) mg/dL Creatinine (0.66-1.25) mg/dL Glucose (74-99) mg/dL POC Glucose (mg/dL) 121 H 306 H 310 H (75-99) mg/dL Total Protein (6.3-8.2) g/dL Albumin (3.5-5.0) g/dL 02/28/21 02/28/21 02/28/21 Range/Units 09:34 09:34 11:43 RBC 4.10 L (4.30-5.90) m/uL Hgb 11.6 L (13.0-17.5) gm/dL Hct 35.8 L (39.0-53.0) % Sodium 135 L (137-145) mmol/L BUN 59 H (9-20) mg/dL Creatinine 2.05 H (0.66-1.25) mg/dL Glucose 150 H (74-99) mg/dL POC Glucose (mg/dL) 131 H (75-99) mg/dL Total Protein 5.6 L (6.3-8.2) g/dL Albumin 3.0 L (3.5-5.0) g/dL Assessment and Plan Plan: Acute pneumonia patient was started on IV Rocephin and IV Zithromax. Pulmonary services are following antibiotic adjusted to Omnicef. Pulmonary services reconsulted Atrial fibrillation with rapid ventricular response. Patient remains on eliquis for anticoagulation. Senia mendenhall DC'keerthi. Cardiology services are following Acute congestive heart failure exacerbation with check echocardiogram cardiology consultation requested. Patient remains on IV Lasix. Underlying history of hypertension Underlying history of COPD Underlying history of coronary artery disease Underlying history of hyperlipidemia Underlying history of gout Acute kidney injury. Creatinine up to 3.16. Nephrology services are consulted. Ultrasound of kidneys completed showing findings suggestive of medical renal disease. DVT prophylaxis eliquis. GI prophylaxis Protonix Cardiology, pulmonary and nephrology services are following
[2021-02-28] MEDS: CEFDINIR 300 MG CAP PO SCH ×2 (14:33→20:52)
--- NOTE | 2021-02-28 14:37 | PN ---
PROGRESS NOTE Patient is seen for followup for acute kidney injury. The patient is currently being diuresed. Renal function is stable with creatinine staying at about 2.0. His weight is about the same for the last couple of days, 24-hour urine output documented at about 4.1 L. This morning patient is maintained on BiPAP. PHYSICAL EXAMINATION: On examination today, blood pressure was 124/73, heart rate 88 per minute. He is afebrile. EXAMINATION OF THE HEART: S1, S2. EXAMINATION OF THE LUNGS: Decreased breath sounds at bases. ABDOMEN: Obese, soft, nontender. Examination of lower extremities shows edema, chronic 2+ bilaterally. MEDICARE COORDINATOR exam grossly intact. LABS: Labs show sodium 135, potassium 4.2, BUN 59, serum creatinine 2.05, hemoglobin 11.6 g/dL. ASSESSMENT: 1. Acute kidney injury. Renal function currently stable with creatinine around 2, which is down from about 2.5 on initial admission. 2. 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 Baseline creatinine around 2 mg/dL. 3. Volume overload, currently improved. Patient had about 4 L of urine output for the last 24 hours. He is maintained on IV Lasix which we can continue. 4. Acute on chronic diastolic heart failure with pulmonary hypertension. 5. Hypervolemic hyponatremia. 6. Acute hypoxic respiratory failure secondary to congestive heart failure exacerbation. PLAN: Continue with the IV Lasix. Add Zaroxolyn p.o. Repeat labs in a.m. Possible discharge in the next 24-48 hours. MMODL / IJN: [id number] /
[2021-02-28 16:39] LABS: Glucose,Whole Blood 223 mg/dL (75-99)
[2021-02-28] MEDS: HYDROcodone/APAP 10-325MG 1 EACH TAB PO PRN ×2 (16:56→23:02)
[2021-02-28] MEDS: metOLazone 5 MG TAB PO SCH (16:57)
[2021-02-28 20:02] LABS: Glucose,Whole Blood 299 mg/dL (75-99)
[2021-02-28] MEDS: INSULIN DETEMIR (LEVEMIR) 100 UNIT/ML SYR SQ SCH (20:52)
[2021-02-28] MEDS: CYCLOBENZAPRINE 10 MG TAB PO PRN (23:02)
[2021-02-28] MEDS: LATANOPROST 0.005% OPHTH DROPS 2.5 ML BTL BOTH EYES SCH (23:03)
[2021-03-01 06:26] LABS: Glucose,Whole Blood 41 mg/dL (75-99)
[2021-03-01 06:26] LABS: Glucose,Whole Blood 38 mg/dL (75-99)
[2021-03-01] MEDS: INSULIN ASPART (NovoLOG) 100 UNIT/ML VIAL SQ SCH ×4 (06:31→20:08)
[2021-03-01] MEDS ORDERED: DEXTROSE 50% SYRINGE 50 ML IVP ONE (06:32)
[2021-03-01 06:34] LABS: Glucose,Whole Blood 50 mg/dL (75-99)
[2021-03-01 06:56] LABS: Glucose,Whole Blood 143 mg/dL (75-99)
[2021-03-01] MEDS: ALBUTEROL NEBULIZED 2.5 MG/3 ML INHALATION PRN ×3 (07:14→20:06)
[2021-03-01 07:45] LABS: Basophils # (A) 0.1 k/uL (0-0.2); Basophils % (A) 1 %; Eosinophils # (A) 0.4 k/uL (0-0.7); Eosinophils % (A) 4 %; HCT 36.9 % (39.0-53.0); HGB 12.3 gm/dL (13.0-17.5); Lymphocytes # (A) 1.3 k/uL (1.0-4.8); Lymphocytes % (A) 14 %; MCH 29.1 pg (25.0-35.0); MCHC 33.3 g/dL (31.0-37.0); MCV 87.5 fL (80.0-100.0); Mean Platelet Volume 7.6; Monocytes # (A) 0.6 k/uL (0-1.0); Monocytes % (A) 7 %; Neutrophils # (A) 6.8 k/uL (1.3-7.7); Neutrophils % (A) 73 %; Platelet Count 324 k/uL (150-450); RBC 4.22 m/uL (4.30-5.90); RDW 15.4 % (11.5-15.5); WBC 9.3 k/uL (3.8-10.6)
[2021-03-01 08:02] LABS: Albumin 3.3 g/dL (3.5-5.0); Calcium 9.4 mg/dL (8.4-10.2); Potassium 3.3 mmol/L (3.5-5.1); Total Bilirubin 0.5 mg/dL (0.2-1.3); Total Protein 6.4 g/dL (6.3-8.2)
[2021-03-01] MEDS: DILTIAZEM ORAL 30 MG TAB PO SCH ×3 (09:51→22:58)
[2021-03-01] MEDS: ATORVASTATIN 10 MG TAB PO SCH (09:51)
[2021-03-01] MEDS: APIXABAN 5 MG TAB PO SCH ×2 (09:51→20:02)
[2021-03-01] MEDS: FENOFIBRATE 160 MG TAB PO SCH (09:51)
[2021-03-01] MEDS: metOLazone 5 MG TAB PO SCH (09:51)
[2021-03-01] MEDS: CEFDINIR 300 MG CAP PO SCH ×2 (09:52→20:02)
[2021-03-01] MEDS: guaiFENesin 600 MG TABLET.ER PO SCH ×2 (09:52→20:02)
[2021-03-01] MEDS: PANTOPRAZOLE 40 MG TABLET PO SCH (09:52)
[2021-03-01] MEDS: METOPROLOL SUCCINATE (ER) 50 MG TAB.ER.24H PO SCH ×2 (09:52→20:02)
[2021-03-01] MEDS: HYDROcodone/APAP 10-325MG 1 EACH TAB PO PRN ×3 (09:52→22:58)
[2021-03-01] MEDS: MAGNESIUM OXIDE 400 MG TAB PO SCH ×2 (09:52→20:02)
[2021-03-01] MEDS: FUROSEMIDE 10 MG/ML 4 ML VIAL IV SCH ×2 (09:53→20:02)
[2021-03-01] MEDS: FEBUXOSTAT 80 MG PO SCH (09:53)
--- NOTE | 2021-03-01 09:59 | XR ---
EXAMINATION TYPE: XR chest 1V portable DATE OF EXAM: 03/01/2021 CLINICAL HISTORY: dyspnea. TECHNIQUE: Portable frontal view of the chest. COMPARISON: 02/26/2021 FINDINGS: Sternotomy wires. Cardiomegaly. There is persistent central pulmonary vascular congestion. There is essentially resolved pleural effusion on the left. There is persistent small right pleural e ffusion and right basilar airspace opacities. No pneumothorax. IMPRESSION: 1. Resolved left pleural effusion versus 02/26/2021. 2. Persistent pulmonary basilar congestion, small right pleural effusion, and right basilar airspace opacities.
--- NOTE | 2021-03-01 11:05 | P.PN ---
Subjective Progress Note Date: 03/01/21 03/01/2021, I'm evaluating this patient upon the request of the primary care. The patient was seen for acute hypoxic respiratory failure secondary to a pneumonia of the right lower lobe in addition to a combination of CHF. The patient was also in nature fibrillation with rapid ventricular response. The patient diastolic heart failure with a chronic sore effusion. The patient has undergone a previous aortic valve replacement for aortic stenosis and the patient has a bovine bioprosthetic valve. The patient also has multiple comorbidities including CVA, diabetes mellitus, hypertension and hyperlipidemia and the patient also has obstructive sleep apnea, coronary artery disease with previous GA. The patient has undergone ileostomy for bowel resection. He does have chronic kidney disease and secondary pulmonary hypertension. During the course the patient received antibiotics and currently is on Omnicef down milligrams by mouth twice a day. The patient is also on Lasix 40 mg every 12 hours. On blood work, the patient has developed a stable creatinine of 1.8 and the patient has recovered from his acute kidney injury. His white cell count is at 9.3. His most recent chest x-ray was done today and it shows infiltrates in the left upper lobe, right lower lobe consolidation, pleural effusion on the right and some fluid in the fissure. Limited infiltration is also seen in the right upper lobe. Post thoracotomy changes seen. There is also a dilated gastric bubble. Objective - Vital Signs Vital signs: Vital Signs Temp 96.9 F L 03/01/21 07:55 Pulse 102 H 03/01/21 07:55 Resp 18 03/01/21 07:55 BP 116/69 03/01/21 07:55 Pulse Ox 93 L 03/01/21 07:55 Intake & Output 02/28/21 03/01/21 03/01/21 18:59 06:59 18:59 Intake Total 930 Output Total 1775 700 150 Balance -845 -700 -150 Intake: IV 210 0.9 160 cefTRIAXone 1 gm In 50 Sodium Chloride 0.9% 50 ml @ 100 mls/hr IVPB Q24HR [facility] Rx#:[id number] Oral 720 Output: Urine 1325 700 150 Stool 450 Other: Voiding Method Urinal Urinal - Exam No acute distress, oriented 3. The patient is currently on 6 L about 2 by nasal cannula with a pulse ox of 93%. Head exam was generally normal. There was no scleral icterus or corneal arcus. Mucous membranes were moist. HEENT examination is grossly unremarkable. Neck supple. Full range of motion. No adenopathy thyromegaly or neck vein distention. Cardiovascular examination reveals an irregular rhythm and rate. S1-S2 normal. No S3 or S4. A 2/6 systolic murmur is noted. Lungs reveal scattered bilateral rhonchi, and basilar crackles. No wheezes. Breath sounds equal bilaterally. Abdomen soft bowel sounds are heard. No masses or tenderness. Colostomy bag noted. Extremities are intact. No cyanosis or clubbing. Trace edema noted. Skin is without rash or lesion. Neurologic examination is brief but nonfocal. - Labs CBC & Chem 7: 03/01/21 07:03 03/01/21 07:08 Labs: Abnormal Lab Results - Last 24 Hours (Table) 02/28/21 02/28/21 02/28/21 Range/Units 11:43 16:22 19:58 RBC (4.30-5.90) m/uL Hgb (13.0-17.5) gm/dL Hct (39.0-53.0) % Potassium (3.5-5.1) mmol/L Chloride (98-107) mmol/L Carbon Dioxide (22-30) mmol/L BUN (9-20) mg/dL Creatinine (0.66-1.25) mg/dL Glucose (74-99) mg/dL POC Glucose (mg/dL) 131 H 223 H 299 H (75-99) mg/dL Albumin (3.5-5.0) g/dL 03/01/21 03/01/21 03/01/21 Range/Units 06:10 06:12 06:31 RBC (4.30-5.90) m/uL Hgb (13.0-17.5) gm/dL Hct (39.0-53.0) % Potassium (3.5-5.1) mmol/L Chloride (98-107) mmol/L Carbon Dioxide (22-30) mmol/L BUN (9-20) mg/dL Creatinine (0.66-1.25) mg/dL Glucose (74-99) mg/dL POC Glucose (mg/dL) 41 L 38 L 50 L (75-99) mg/dL Albumin (3.5-5.0) g/dL 03/01/21 03/01/21 03/01/21 Range/Units 06:51 07:03 07:08 RBC 4.22 L (4.30-5.90) m/uL Hgb 12.3 L (13.0-17.5) gm/dL Hct 36.9 L (39.0-53.0) % Potassium 3.3 L (3.5-5.1) mmol/L Chloride 95 L (98-107) mmol/L Carbon Dioxide 35 H (22-30) mmol/L BUN 56 H (9-20) mg/dL Creatinine 1.87 H (0.66-1.25) mg/dL Glucose 115 H (74-99) mg/dL POC Glucose (mg/dL) 143 H (75-99) mg/dL Albumin 3.3 L (3.5-5.0) g/dL Assessment and Plan Plan: 1 acute hypoxemic respiratory failure, secondary to possible right lower lobe pneumonia v. CHF. 2 Atrial fibrillation with RVR. 3 Chronic diastolic CHF, with right-sided pleural effusion. 4 Status post bovine aortic valve replacement for aortic stenosis (2014). 5 History of CVA. 6 History of diabetes mellitus. 7 History of hyperlipidemia. 8 History of hypertension. 9 Prior history of myocardial infarction. 10 Obstructive sleep apnea syndrome, currently on CPAP. 11 History of gout. 12 Status post bowel resection for cancer, status post ileostomy. 13 acute on top of Chronic kidney disease. 14 Severe pulmonary hypertension. Plan: Obviously, the patient shortness of breath is multifactorial. Overnight, the patient is utilizing the BiPAP and currently is on significant liters about 2 by nasal cannula. On today's evaluation, he tells me that he improved since he came in however he is at a standstill when he is not showing any further recovery. I reviewed the most recent chest x-ray and the patient has evidence of CHF and there is areas of infiltrates bilaterally which could be obviously infectious versus CHF related. His pro-calcitonin level at the time of admission was low at 0.4 and his proBNP level at a time of admission was elevated at 5770. As such, it's hard to say what is the predominant pathology at this point in time although I feel that the patient is more so in CHF. We'll order a noncontrast CAT scan of the chest. Continue diuretics for now with Lasix. Continue Omnicef. Continue anticoagulation. Monitor renal function. Increase the Lasix dose to 40 mg every 8 hours. We'll continue to follow. We'll make further recommendations based on the noncontrast CAT scan findings.
[2021-03-01 12:47] LABS: Glucose,Whole Blood 239 mg/dL (75-99)
--- NOTE | 2021-03-01 14:37 | PN ---
PROGRESS NOTE The patient is seen for followup for acute kidney injury, volume overload and chronic kidney disease. He is currently being diuresed. Zaroxolyn was added yesterday. Serum creatinine is actually improved today to 1.87. Patient's weight is not checked. His 24-hour output seems to have increased to about 4.1 L yesterday. PHYSICAL EXAMINATION: On examination today, blood pressure is 116/69, heart rate 102 per minute. He is afebrile. EXAMINATION OF THE HEART: S1, S2. EXAMINATION OF THE LUNGS: Decreased breath sounds at bases. ABDOMEN: Soft, obese. Examination of lower extremities shows chronic edema 2+ bilaterally. LIVESTOCK DEALER exam grossly intact. LABS: Labs show sodium 137, potassium 3.3, chloride 95, CO2 of 35, BUN 56, creatinine 1.87, hemoglobin 12.3 g/dL. ASSESSMENT: 1. Acute kidney injury cardiorenal currently improved with creatinine decreasing to 1.87. Zaroxolyn was added yesterday. Patient's output has improved. I will continue with the Zaroxolyn for now. 2. Congestive heart failure acute on top of chronic diastolic. 3. Pulmonary hypertension. 4. Acute hypoxic respiratory failure secondary to congestive heart failure, currently improving. 5. 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 PLAN: Continue with Zaroxolyn. Continue with current dose of Lasix. Possible discharge tomorrow. Replace potassium. The patient should be discharged on Zaroxolyn at least 3 times a week with monitoring of labs and daily weights as outpatient. MMODL / IJN: [id number] /
--- NOTE | 2021-03-01 16:00 | CT ---
EXAMINATION TYPE: CT chest wo con DATE OF EXAM: 03/01/2021 COMPARISON: 07/08/2013 HISTORY: Hypoxemia CT DLP: 642.1 mGycm Automated exposure control for dose reduction was used. Images obtained from the thoracic inlet to the diaphragm with no contrast. There is dense calcification at the mitral valve. There is calcification on the posterior wall of the left ventricle. This could relate to old infarct. Heart is enlarged. There are bilateral pleural eff usions. There is airspace infiltrate and atelectasis in both lower lobes. There are multiple air bron chograms. Thoracic aorta is atheromatous. There is no aneurysm. There is coronary artery calcificatio n. Ascending aorta measures 3.8 cm. There are calcified multiple granulomata at the pulmonary phil. T here are calcified mediastinal granulomas. There is some spurring in the thoracic spine. There is no compression fracture. There are sternal wires. Upper abdominal soft tissues appear intact. There is s ome subcutaneous edema over the lateral left side lower chest. IMPRESSION: Bilateral lower lobe pulmonary infiltrates and atelectasis are likely related to bronchopneumonia. Ca rdiomegaly with pleural effusions. Congestive heart failure is possible. Pleural fluid and pulmonary infiltrates increased compared to old exam. Extensive atherosclerotic vascular disease. Cardiac calcification increased compared to old exam.
[2021-03-01 16:58] LABS: Glucose,Whole Blood 211 mg/dL (75-99)
--- NOTE | 2021-03-01 17:11 | P.PN ---
Subjective Progress Note Date: 03/01/21 Faisal Andrade, is a 70-year-old male who presented to [facility] emergency room with a chief complaint of worsening shortness of breath over several weeks and cough and chest congestion, he was evaluated in the emergency room vital examination on presentation revealed a temperature of 96.7 also 130 respiration 26 blood pressure 142/87 pulse ox 96% on 3 L nasal cannula white blood count was 9.6 hemoglobin 14.1 platelet count 291 sodium 140 potassium 4.7 chloride 110 CO2 20 BUN 58 creatinine 2.4 troponin level was 0.044 BNP was elevated at 5717 Gu virus PCR was negative. Chest x-ray done in the emergency room revealed right lower lobe infiltrate suggestive of pneumonia, EKG revealed evidence of atrial fibrillation with rapid ventricular response. Patient was admitted to telemetry floor, he was started on IV antibiotics ceftriaxone and Zithromax, he was started on Cardizem drip, and IV Lasix, cardiology consultation and pulmonary consultation were requested. On 02/13/2021 patient was seen and examined on the medical floor, he is alert and oriented 3 in no apparent distress he is still complaining of shortness of breath however he noticed some improvement since yesterday he also had some occasional cough otherwise he denies any complaints there is no fever or chills no headache or dizziness no chest pain no nausea or vomiting no abdominal pain no diarrhea no blood in the stools no burning with urination no frequency or urgency and no hematuria he is maintained on IV Lasix his creatinine is going up chronic kidney disease will add a consult for nephrology at this time On 02/14/2021 patient currently resting on BiPAP. Patient does wake up quickly falls back to sleep. Per nursing staff patient remained short of breath with minimal activity. Patient remains on IV Lasix. IV Lasix have been decreased to 2 acute kidney injury. Cardiology, pulmonary and nephrology services are following. Ultrasound kidneys has been ordered per nephrology. At this time patient denies nausea vomiting or diarrhea. Patient denies any urinary burning or frequency On 02/15/2021 patient currently resting on BiPAP. Patient does wake up quickly falls back to sleep. Per nursing staff patient remained short of breath with minimal activity. he is still complaining of shortness of breath however he noticed some improvement since yesterday he also had some occasional cough otherwise he denies any complaints there is no fever or chills no headache or dizziness no chest pain no nausea or vomiting no abdominal pain no diarrhea no blood in the stools no burning with urination no frequency or urgency and no hematuria he is maintained on IV Lasix his creatinine is going up chronic kidney disease will add a consult for nephrology at this time. Patient remains on IV La six. IV Lasix have been decreased to 2 acute kidney injury. Cardiology, pulmonary and nephrology services are following. Ultrasound kidneys has been ordered per nephrology. At this time patient denies nausea vomiting or diarrhea. Patient denies any urinary burning or frequency On 02/16/2021 patient currently resting on BiPAP. Patient does wake up was able to keep breakfast. Patient maintained on IV Lasix 40 mg twice a day. Ultrasound of kidneys completed showing findings suggestive of medical renal disease. Repeat labs have been ordered. Patient denies chest pain. Patient denies nausea vomiting or diarrhea. Patient denies any urinary burning or frequency. Cardiology, pulmonary and nephrology services are following On 02/17/2021 patient's alert and oriented 3. Patient currently resting on BiPAP. Patient reports he is starting to feel better. Creatinine and bun trending down. Patient does report some shortness breath but does state this is improved. Patient denies chest pain. Patient denies nausea vomiting or diarrhea. Patient denies any urinary burning or frequency. Patient remains on azithromycin and Rocephin for IV antibiotics. IV Lasix 40 mg every 12 hours. Cardiology, pulmonary and nephrology following On 02/18/2021 patient was seen and examined on the medical floor he is alert and oriented 3 in no apparent distress he is still complaining of cough and shortness of breath otherwise he denies any complaints there is no fever or chills no headache or dizziness step pain no palpitation no nausea or vomiting no abdominal pain no diarrhea no blood in the stools no burning with urination no frequency or urgency and no hip On 02/19/2021 Patient was seen and examined on the medical floor, he is alert and oriented x 3 in no distress, he denies any complaints there is no fever or chills no headache or dizziness no chest pain no shortness of breath no palpitation no nausea or vomiting no abdominal pain no diarrhea no blood in the stools no burning with urination no frequency or urgency and no hematuria, there is no weakness or numbness in any of the extremities no change in vision speech or gait. He is still complaining of cough, will add Mucinex and try to obtain a sputum sample for culture. On 02/20/2021 Patient was seen and examined on the medical floor, he is alert and oriented x 3 in no distress, he denies any complaints there is no fever or chills no headache or dizziness no chest pain no shortness of breath no palpitation no cough no nausea or vomiting no abdominal pain no diarrhea no blood in the stools no burning with urination no frequency or urgency and no hematuria, there is no weakness or numbness in any of the extremities no change in vision speech or gait. Vital exam reveals a temperature of 97.9 pulse 1 or 2 respiration 20 lungs pressure 130/88 pulse ox 89% on 15 L high flow cannula. White blood count is 9.3 hemoglobin 12.9 platelet count 207 sodium 139 potassium 3.7 chloride 102 CO2 27 BUN 66 creatinine 1.75 On 02/21/2021 patient is alert and oriented 3 currently eating lunch. Patient denies chest pain or shortness breath. Patient denies nausea vomiting or diarrhea. Patient denies any urinary burning or frequency. Patient remains on 15 L high flow BiPAP at rest. Bun 66 creatinine 2.00. Pulmonary cardiology and nephrology services are following On 02/22/2021 patient was seen and examined on the medical floor he is alert and oriented 3 in no apparent distress he is still complaining of cough and shortness of breath otherwise he denies any complaints there is no fever or chills no headache or dizziness step pain no palpitation no nausea or vomiting no abdominal pain no diarrhea no blood in the stools no burning with urination no frequency or urgency and no hematuria patient is still requiring BiPAP On 02/24/2021 patient was seen and examined on the medical floor he is alert and oriented 3 in no distress, he is maintained on oxygen via nasal cannula and is tolerating well he is using BiPAP at night there is no fever or chills no headache or dizziness no chest pain no shortness of breath at rest no cough no nausea or vomiting no abdominal pain no diarrhea no blood in the stools no burning with urination no frequency or urgency and no hematuria On 02/25/2021 patient was seen and examined on the telemetry floor he is alert and oriented 3 in no distress currently he is maintained on BiPAP there is no fever or chills no headache or dizziness no chest pain no shortness of breath no cough no nausea or vomiting no abdominal pain no diarrhea no blood in the stools no burning with urination no frequency or urgency and no hematuria On 02/26/2021 patient was seen and examined on the telemetry floor he is alert and oriented, he is maintained on BiPAP he has worsening shortness of breath today. there is no fever or chills no headache or dizziness no chest pain no shortness of breath no cough no nausea or vomiting no abdominal pain no diarrhea no blood in the stools no burning with urination no frequency or urgency and no hematuria. will repeat CXR today. On 02/27/2021 patient was seen and examined on the medical floor he is alert and oriented 3 in no apparent distress he is still complaining of shortness of breath however he feels better than yesterday otherwise he denies any complaints at this time, repeat chest x-ray done yesterday did not reveal any significant change from prior, at this time I would ask pulmonary to reevaluate him again, patient received IV antibiotic for 14 days, I would discontinue IV antibiotic and start Omnicef orally, will follow closely possible discharge soon if stable. On 02/28/2021 patient's alert and oriented 3. Patient reports that he is feeling better. High flow decreased to 5 L. Pulmonary services reconsulted. Patient maintained on IV Lasix. Antibiotics adjusted to Omnicef. Patient will likely need home O2 upon discharge. Patient is improving progressing slowly. Discharge planning in place. Patient denies any chest pain. Patient denies nausea vomiting or diarrhea. Patient denies any urinary burning or frequency On 03/01/2021 patient was seen and examined on the medical floor due to lack of improvement over the last several days I have requested reevaluation by pulmonary, computed tomography scan of the chest without contrast was ordered and patient will be evaluated by Dr. Medina today, patient is still complaining of cough and shortness of breath and generalized weakness otherwise he denies any complaints there is no fever or chills no headache or dizziness no chest pain no nausea or vomiting no abdominal pain no diarrhea no blood in the stools no burning with urination no frequency or urgency and no hematuria Objective - Vital Signs Vital signs: Vital Signs Temp 98.4 F 02/28/21 20:00 Pulse 99 03/01/21 07:29 Resp 16 03/01/21 04:00 BP 95/56 05/06/21 04:00 Pulse Ox 94 L 03/01/21 04:00 Intake & Output 02/28/21 03/01/21 03/01/21 18:59 06:59 18:59 Intake Total 930 Output Total 1775 700 Balance -845 -700 Intake: IV 210 0.9 160 cefTRIAXone 1 gm In 50 Sodium Chloride 0.9% 50 ml @ 100 mls/hr IVPB Q24HR [facility] Rx#:[id number] Oral 720 Output: Urine 1325 700 Stool 450 Other: Voiding Method Urinal - Exam In general patient is alert and oriented 3 in no apparent distress HEENT head normocephalic and atraumatic Neck is supple no JVD no goiter no lymphadenopathy Chest exam reveals crackles in both lung zhang no wheezing Cardiac exam reveals irregular heart sounds with tachycardia no murmurs Abdomen is soft nontender no organomegaly with normal bowel sounds Extremity exam reveals 1+ edema, there is a large scabbed ulcer on the left pretibial area with mild surrounding erythema Neurological examination reveals no gross focal deficit - Labs CBC & Chem 7: 03/01/21 07:03 03/01/21 07:08 Labs: Abnormal Lab Results - Last 24 Hours (Table) 02/28/21 02/28/21 02/28/21 Range/Units 09:34 09:34 11:43 RBC 4.10 L (4.30-5.90) m/uL Hgb 11.6 L (13.0-17.5) gm/dL Hct 35.8 L (39.0-53.0) % Sodium 135 L (137-145) mmol/L Potassium (3.5-5.1) mmol/L Chloride (98-107) mmol/L Carbon Dioxide (22-30) mmol/L BUN 59 H (9-20) mg/dL Creatinine 2.05 H (0.66-1.25) mg/dL Glucose 150 H (74-99) mg/dL POC Glucose (mg/dL) 131 H (75-99) mg/dL Total Protein 5.6 L (6.3-8.2) g/dL Albumin 3.0 L (3.5-5.0) g/dL 02/28/21 02/28/21 03/01/21 Range/Units 16:22 19:58 06:10 RBC (4.30-5.90) m/uL Hgb (13.0-17.5) gm/dL Hct (39.0-53.0) % Sodium (137-145) mmol/L Potassium (3.5-5.1) mmol/L Chloride (98-107) mmol/L Carbon Dioxide (22-30) mmol/L BUN (9-20) mg/dL Creatinine (0.66-1.25) mg/dL Glucose (74-99) mg/dL POC Glucose (mg/dL) 223 H 299 H 41 L (75-99) mg/dL Total Protein (6.3-8.2) g/dL Albumin (3.5-5.0) g/dL 03/01/21 03/01/21 03/01/21 Range/Units 06:12 06:31 06:51 RBC (4.30-5.90) m/uL Hgb (13.0-17.5) gm/dL Hct (39.0-53.0) % Sodium (137-145) mmol/L Potassium (3.5-5.1) mmol/L Chloride (98-107) mmol/L Carbon Dioxide (22-30) mmol/L BUN (9-20) mg/dL Creatinine (0.66-1.25) mg/dL Glucose (74-99) mg/dL POC Glucose (mg/dL) 38 L 50 L 143 H (75-99) mg/dL Total Protein (6.3-8.2) g/dL Albumin (3.5-5.0) g/dL 03/01/21 03/01/21 Range/Units 07:03 07:08 RBC 4.22 L (4.30-5.90) m/uL Hgb 12.3 L (13.0-17.5) gm/dL Hct 36.9 L (39.0-53.0) % Sodium (137-145) mmol/L Potassium 3.3 L (3.5-5.1) mmol/L Chloride 95 L (98-107) mmol/L Carbon Dioxide 35 H (22-30) mmol/L BUN 56 H (9-20) mg/dL Creatinine 1.87 H (0.66-1.25) mg/dL Glucose 115 H (74-99) mg/dL POC Glucose (mg/dL) (75-99) mg/dL Total Protein (6.3-8.2) g/dL Albumin 3.3 L (3.5-5.0) g/dL Assessment and Plan Plan: Acute pneumonia patient was started on IV Rocephin and IV Zithromax. Pulmonary services are following antibiotic adjusted to Omnicef. Pulmonary services reconsulted Atrial fibrillation with rapid ventricular response. Patient remains on eliquis for anticoagulation. Senia mendenhall DC'keerthi. Cardiology services are following Acute congestive heart failure exacerbation with check echocardiogram cardiology consultation requested. Patient remains on IV Lasix. Underlying history of hypertension Underlying history of COPD Underlying history of coronary artery disease Underlying history of hyperlipidemia Underlying history of gout Acute kidney injury. Creatinine up to 3.16. Nephrology services are consulted. Ultrasound of kidneys completed showing findings suggestive of medical renal disease. DVT prophylaxis eliquis. GI prophylaxis Protonix Cardiology, pulmonary and nephrology services are following
[2021-03-01] MEDS ORDERED: Potassium Replacement Protocol 1 EACH MISC MISCELLANE PRN (17:25)
[2021-03-01] MEDS: POTASSIUM CHLORIDE ER 20 MEQ TAB.ER PO SCH ×2 (18:11→19:03)
[2021-03-01] MEDS: INSULIN DETEMIR (LEVEMIR) 100 UNIT/ML SYR SQ SCH (20:09)
[2021-03-01 20:13] LABS: Glucose,Whole Blood 267 mg/dL (75-99)
[2021-03-01] MEDS: CYCLOBENZAPRINE 10 MG TAB PO PRN (22:58)
[2021-03-01] MEDS: LATANOPROST 0.005% OPHTH DROPS 2.5 ML BTL BOTH EYES SCH (23:01)
[2021-03-02 06:26] LABS: Glucose,Whole Blood 182 mg/dL (75-99)
[2021-03-02] MEDS: PANTOPRAZOLE 40 MG TABLET PO SCH (06:35)
[2021-03-02] MEDS: INSULIN ASPART (NovoLOG) 100 UNIT/ML VIAL SQ SCH ×4 (06:35→21:03)
[2021-03-02 07:55] LABS: Basophils # (A) 0.1 k/uL (0-0.2); Basophils % (A) 1 %; Eosinophils # (A) 0.3 k/uL (0-0.7); Eosinophils % (A) 4 %; HGB 11.7 gm/dL (13.0-17.5); Lymphocytes # (A) 1.5 k/uL (1.0-4.8); Lymphocytes % (A) 20 %; MCH 27.5 pg (25.0-35.0); MCHC 31.6 g/dL (31.0-37.0); MCV 87.1 fL (80.0-100.0); Mean Platelet Volume 7.7; Monocytes # (A) 0.6 k/uL (0-1.0); Monocytes % (A) 8 %; Neutrophils # (A) 5.2 k/uL (1.3-7.7); Neutrophils % (A) 66 %; Platelet Count 301 k/uL (150-450); RBC 4.25 m/uL (4.30-5.90); RDW 15.1 % (11.5-15.5); WBC 7.8 k/uL (3.8-10.6)
[2021-03-02 08:16] LABS: Albumin 3.1 g/dL (3.5-5.0); Potassium 3.8 mmol/L (3.5-5.1); Total Bilirubin 0.5 mg/dL (0.2-1.3)
[2021-03-02] MEDS: DILTIAZEM ORAL 30 MG TAB PO SCH ×3 (08:49→21:03)
[2021-03-02] MEDS: HYDROcodone/APAP 10-325MG 1 EACH TAB PO PRN ×2 (08:49→22:47)
[2021-03-02] MEDS: FUROSEMIDE 10 MG/ML 4 ML VIAL IV SCH ×2 (08:49→21:03)
[2021-03-02] MEDS: APIXABAN 5 MG TAB PO SCH ×2 (08:49→21:02)
[2021-03-02] MEDS: FENOFIBRATE 160 MG TAB PO SCH (08:49)
[2021-03-02] MEDS: CEFDINIR 300 MG CAP PO SCH ×2 (08:49→21:03)
[2021-03-02] MEDS: ATORVASTATIN 10 MG TAB PO SCH (08:50)
[2021-03-02] MEDS: MAGNESIUM OXIDE 400 MG TAB PO SCH ×2 (08:50→21:02)
[2021-03-02] MEDS: METOPROLOL SUCCINATE (ER) 50 MG TAB.ER.24H PO SCH ×2 (08:50→21:02)
[2021-03-02] MEDS: FEBUXOSTAT 80 MG PO SCH (08:50)
[2021-03-02] MEDS: guaiFENesin 600 MG TABLET.ER PO SCH ×2 (08:50→21:02)
[2021-03-02] MEDS: metOLazone 5 MG TAB PO SCH (08:50)
--- NOTE | 2021-03-02 10:13 | P.PN ---
Subjective Progress Note Date: 03/02/21 Faisal Andrade, is a 70-year-old male who presented to [facility] emergency room with a chief complaint of worsening shortness of breath over several weeks and cough and chest congestion, he was evaluated in the emergency room vital examination on presentation revealed a temperature of 96.7 also 130 respiration 26 blood pressure 142/87 pulse ox 96% on 3 L nasal cannula white blood count was 9.6 hemoglobin 14.1 platelet count 291 sodium 140 potassium 4.7 chloride 110 CO2 20 BUN 58 creatinine 2.4 troponin level was 0.044 BNP was elevated at 5717 Gu virus PCR was negative. Chest x-ray done in the emergency room revealed right lower lobe infiltrate suggestive of pneumonia, EKG revealed evidence of atrial fibrillation with rapid ventricular response. Patient was admitted to telemetry floor, he was started on IV antibiotics ceftriaxone and Zithromax, he was started on Cardizem drip, and IV Lasix, cardiology consultation and pulmonary consultation were requested. On 02/13/2021 patient was seen and examined on the medical floor, he is alert and oriented 3 in no apparent distress he is still complaining of shortness of breath however he noticed some improvement since yesterday he also had some occasional cough otherwise he denies any complaints there is no fever or chills no headache or dizziness no chest pain no nausea or vomiting no abdominal pain no diarrhea no blood in the stools no burning with urination no frequency or urgency and no hematuria he is maintained on IV Lasix his creatinine is going up chronic kidney disease will add a consult for nephrology at this time On 02/14/2021 patient currently resting on BiPAP. Patient does wake up quickly falls back to sleep. Per nursing staff patient remained short of breath with minimal activity. Patient remains on IV Lasix. IV Lasix have been decreased to 2 acute kidney injury. Cardiology, pulmonary and nephrology services are following. Ultrasound kidneys has been ordered per nephrology. At this time patient denies nausea vomiting or diarrhea. Patient denies any urinary burning or frequency On 02/15/2021 patient currently resting on BiPAP. Patient does wake up quickly falls back to sleep. Per nursing staff patient remained short of breath with minimal activity. he is still complaining of shortness of breath however he noticed some improvement since yesterday he also had some occasional cough otherwise he denies any complaints there is no fever or chills no headache or dizziness no chest pain no nausea or vomiting no abdominal pain no diarrhea no blood in the stools no burning with urination no frequency or urgency and no hematuria he is maintained on IV Lasix his creatinine is going up chronic kidney disease will add a consult for nephrology at this time. Patient remains on IV La six. IV Lasix have been decreased to 2 acute kidney injury. Cardiology, pulmonary and nephrology services are following. Ultrasound kidneys has been ordered per nephrology. At this time patient denies nausea vomiting or diarrhea. Patient denies any urinary burning or frequency On 02/16/2021 patient currently resting on BiPAP. Patient does wake up was able to keep breakfast. Patient maintained on IV Lasix 40 mg twice a day. Ultrasound of kidneys completed showing findings suggestive of medical renal disease. Repeat labs have been ordered. Patient denies chest pain. Patient denies nausea vomiting or diarrhea. Patient denies any urinary burning or frequency. Cardiology, pulmonary and nephrology services are following On 02/17/2021 patient's alert and oriented 3. Patient currently resting on BiPAP. Patient reports he is starting to feel better. Creatinine and bun trending down. Patient does report some shortness breath but does state this is improved. Patient denies chest pain. Patient denies nausea vomiting or diarrhea. Patient denies any urinary burning or frequency. Patient remains on azithromycin and Rocephin for IV antibiotics. IV Lasix 40 mg every 12 hours. Cardiology, pulmonary and nephrology following On 02/18/2021 patient was seen and examined on the medical floor he is alert and oriented 3 in no apparent distress he is still complaining of cough and shortness of breath otherwise he denies any complaints there is no fever or chills no headache or dizziness step pain no palpitation no nausea or vomiting no abdominal pain no diarrhea no blood in the stools no burning with urination no frequency or urgency and no hip On 02/19/2021 Patient was seen and examined on the medical floor, he is alert and oriented x 3 in no distress, he denies any complaints there is no fever or chills no headache or dizziness no chest pain no shortness of breath no palpitation no nausea or vomiting no abdominal pain no diarrhea no blood in the stools no burning with urination no frequency or urgency and no hematuria, there is no weakness or numbness in any of the extremities no change in vision speech or gait. He is still complaining of cough, will add Mucinex and try to obtain a sputum sample for culture. On 02/20/2021 Patient was seen and examined on the medical floor, he is alert and oriented x 3 in no distress, he denies any complaints there is no fever or chills no headache or dizziness no chest pain no shortness of breath no palpitation no cough no nausea or vomiting no abdominal pain no diarrhea no blood in the stools no burning with urination no frequency or urgency and no hematuria, there is no weakness or numbness in any of the extremities no change in vision speech or gait. Vital exam reveals a temperature of 97.9 pulse 1 or 2 respiration 20 lungs pressure 130/88 pulse ox 89% on 15 L high flow cannula. White blood count is 9.3 hemoglobin 12.9 platelet count 207 sodium 139 potassium 3.7 chloride 102 CO2 27 BUN 66 creatinine 1.75 On 02/21/2021 patient is alert and oriented 3 currently eating lunch. Patient denies chest pain or shortness breath. Patient denies nausea vomiting or diarrhea. Patient denies any urinary burning or frequency. Patient remains on 15 L high flow BiPAP at rest. Bun 66 creatinine 2.00. Pulmonary cardiology and nephrology services are following On 02/22/2021 patient was seen and examined on the medical floor he is alert and oriented 3 in no apparent distress he is still complaining of cough and shortness of breath otherwise he denies any complaints there is no fever or chills no headache or dizziness step pain no palpitation no nausea or vomiting no abdominal pain no diarrhea no blood in the stools no burning with urination no frequency or urgency and no hematuria patient is still requiring BiPAP On 02/24/2021 patient was seen and examined on the medical floor he is alert and oriented 3 in no distress, he is maintained on oxygen via nasal cannula and is tolerating well he is using BiPAP at night there is no fever or chills no headache or dizziness no chest pain no shortness of breath at rest no cough no nausea or vomiting no abdominal pain no diarrhea no blood in the stools no burning with urination no frequency or urgency and no hematuria On 02/25/2021 patient was seen and examined on the telemetry floor he is alert and oriented 3 in no distress currently he is maintained on BiPAP there is no fever or chills no headache or dizziness no chest pain no shortness of breath no cough no nausea or vomiting no abdominal pain no diarrhea no blood in the stools no burning with urination no frequency or urgency and no hematuria On 02/26/2021 patient was seen and examined on the telemetry floor he is alert and oriented, he is maintained on BiPAP he has worsening shortness of breath today. there is no fever or chills no headache or dizziness no chest pain no shortness of breath no cough no nausea or vomiting no abdominal pain no diarrhea no blood in the stools no burning with urination no frequency or urgency and no hematuria. will repeat CXR today. On 02/27/2021 patient was seen and examined on the medical floor he is alert and oriented 3 in no apparent distress he is still complaining of shortness of breath however he feels better than yesterday otherwise he denies any complaints at this time, repeat chest x-ray done yesterday did not reveal any significant change from prior, at this time I would ask pulmonary to reevaluate him again, patient received IV antibiotic for 14 days, I would discontinue IV antibiotic and start Omnicef orally, will follow closely possible discharge soon if stable. On 02/28/2021 patient's alert and oriented 3. Patient reports that he is feeling better. High flow decreased to 5 L. Pulmonary services reconsulted. Patient maintained on IV Lasix. Antibiotics adjusted to Omnicef. Patient will likely need home O2 upon discharge. Patient is improving progressing slowly. Discharge planning in place. Patient denies any chest pain. Patient denies nausea vomiting or diarrhea. Patient denies any urinary burning or frequency On 03/01/2021 patient was seen and examined on the medical floor due to lack of improvement over the last several days I have requested reevaluation by pulmonary, computed tomography scan of the chest without contrast was ordered and patient will be evaluated by Dr. Medina today, patient is still complaining of cough and shortness of breath and generalized weakness otherwise he denies any complaints there is no fever or chills no headache or dizziness no chest pain no nausea or vomiting no abdominal pain no diarrhea no blood in the stools no burning with urination no frequency or urgency and no hematuria On 03/02/2021 patient is currently resting comfortably in bed. Patient was reevaluated by pulmonary service remains on Lasix and Omnicef. CT of chest was performed showing bilateral lower lobe pulmonary infiltrates and atelectasis also likely related to bronchopneumonia cardiomegaly with pleural effusions. Congestive heart failure is possible. pleural fluid and pulmonary infiltrates patient is currently resting comfortably on 5 L and BiPAP at rest. patient den ies chest pain. Patient denies nausea vomiting or diarrhea. Patient denies any urinary burning or frequency Objective - Vital Signs Vital signs: Vital Signs Temp 97.4 F L 03/02/21 04:00 Pulse 87 03/02/21 04:00 Resp 18 03/02/21 04:00 BP 121/68 03/02/21 04:00 Pulse Ox 94 L 03/02/21 04:00 Intake & Output 03/01/21 03/02/21 03/02/21 18:59 06:59 18:59 Intake Total 960 Output Total 1000 1800 Balance -40 -1800 Weight 82.5 kg Intake: Oral 960 Output: Urine 800 1500 Stool 200 300 Other: Voiding Method Urinal Urinal # Voids 1 - Exam In general patient is alert and oriented 3 in no apparent distress HEENT head normocephalic and atraumatic Neck is supple no JVD no goiter no lymphadenopathy Chest exam reveals crackles in both lung zhang no wheezing Cardiac exam reveals irregular heart sounds with tachycardia no murmurs Abdomen is soft nontender no organomegaly with normal bowel sounds Extremity exam reveals 1+ edema, there is a large scabbed ulcer on the left pretibial area with mild surrounding erythema Neurological examination reveals no gross focal deficit - Labs CBC & Chem 7: 03/02/21 07:14 03/02/21 07:14 Labs: Abnormal Lab Results - Last 24 Hours (Table) 03/01/21 03/01/21 03/01/21 Range/Units 07:03 12:40 16:50 RBC (4.30-5.90) m/uL Hgb (13.0-17.5) gm/dL Hct (39.0-53.0) % Sodium (137-145) mmol/L Chloride (98-107) mmol/L Carbon Dioxide (22-30) mmol/L BUN (9-20) mg/dL Creatinine (0.66-1.25) mg/dL Glucose (74-99) mg/dL POC Glucose (mg/dL) 239 H 211 H (75-99) mg/dL Total Protein (6.3-8.2) g/dL Albumin (3.5-5.0) g/dL Procalcitonin 0.15 H (0.02-0.09) ng/mL 03/01/21 03/02/21 03/02/21 Range/Units 20:08 06:06 07:14 RBC 4.25 L (4.30-5.90) m/uL Hgb 11.7 L (13.0-17.5) gm/dL Hct 37.0 L (39.0-53.0) % Sodium (137-145) mmol/L Chloride (98-107) mmol/L Carbon Dioxide (22-30) mmol/L BUN (9-20) mg/dL Creatinine (0.66-1.25) mg/dL Glucose (74-99) mg/dL POC Glucose (mg/dL) 267 H 182 H (75-99) mg/dL Total Protein (6.3-8.2) g/dL Albumin (3.5-5.0) g/dL Procalcitonin (0.02-0.09) ng/mL 03/02/21 Range/Units 07:14 RBC (4.30-5.90) m/uL Hgb (13.0-17.5) gm/dL Hct (39.0-53.0) % Sodium 135 L (137-145) mmol/L Chloride 93 L (98-107) mmol/L Carbon Dioxide 34 H (22-30) mmol/L BUN 62 H (9-20) mg/dL Creatinine 2.12 H (0.66-1.25) mg/dL Glucose 130 H (74-99) mg/dL POC Glucose (mg/dL) (75-99) mg/dL Total Protein 6.0 L (6.3-8.2) g/dL Albumin 3.1 L (3.5-5.0) g/dL Procalcitonin (0.02-0.09) ng/mL Assessment and Plan Plan: Acute pneumonia patient was started on IV Rocephin and IV Zithromax. Pulmonary services are following antibiotic adjusted to Omnicef. Pulmonary services reconsulted Atrial fibrillation with rapid ventricular response. Patient remains on eliquis for anticoagulation. Senia Raygoza. Cardiology services are following Acute congestive heart failure exacerbation with check echocardiogram cardiology consultation requested. Patient remains on IV Lasix. Underlying history of hypertension Underlying history of COPD Underlying history of coronary artery disease Underlying history of hyperlipidemia Underlying history of gout Acute kidney injury. Creatinine up to 3.16. Nephrology services are consulted. Ultrasound of kidneys completed showing findings suggestive of medical renal disease. DVT prophylaxis eliquis. GI prophylaxis Protonix Cardiology, pulmonary and nephrology services are following
[2021-03-02 11:35] LABS: Glucose,Whole Blood 151 mg/dL (75-99)
--- NOTE | 2021-03-02 12:11 | P.PN ---
Subjective Progress Note Date: 03/02/21 03/01/2021, I'm evaluating this patient upon the request of the primary care. The patient was seen for acute hypoxic respiratory failure secondary to a pneumonia of the right lower lobe in addition to a combination of CHF. The patient was also in nature fibrillation with rapid ventricular response. The patient diastolic heart failure with a chronic sore effusion. The patient has undergone a previous aortic valve replacement for aortic stenosis and the patient has a bovine bioprosthetic valve. The patient also has multiple comorbidities including CVA, diabetes mellitus, hypertension and hyperlipidemia and the patient also has obstructive sleep apnea, coronary artery disease with previous AK. The patient has undergone ileostomy for bowel resection. He does have chronic kidney disease and secondary pulmonary hypertension. During the course the patient received antibiotics and currently is on Omnicef down milligrams by mouth twice a day. The patient is also on Lasix 40 mg every 12 hours. On blood work, the patient has developed a stable creatinine of 1.8 and the patient has recovered from his acute kidney injury. His white cell count is at 9.3. His most recent chest x-ray was done today and it shows infiltrates in the left upper lobe, right lower lobe consolidation, pleural effusion on the right and some fluid in the fissure. Limited infiltration is also seen in the right upper lobe. Post thoracotomy changes seen. There is also a dilated gastric bubble. 03/02/2021, his condition is stable and the patient is on 5 L of oxygen by nasal cannula. He is still on diuretics and he is on Lasix 40 mg IV every 12 hours. He is diuresing well and his fluid balance remains negative at least 3.1 L on 02/28/2021 and 1.5 L on 03/01/2021. I did a CAT scan of the chest and this was a noncontrast CAT scan of the chest yesterday and I reviewed the films. The findings are more consistent with CHF. The patient had cardiomegaly and bilateral pleural effusions. There was also some interstitial edema that was rather asymmetric and despite asymmetric nature, the presentation is more consistent with CHF. He was also calcified granulomas bilaterally involving the lung hilum and mediastinal lymph node calcification. The patient remains on Omnicef. Suspicion for infection is low. He is controlled calcitonin level is at 0.15. His creatinine is at 2.1 which is essentially stable. Objective - Vital Signs Vital signs: Vital Signs Temp 97.7 F 03/02/21 08:00 Pulse 94 03/02/21 08:00 Resp 22 03/02/21 08:00 BP 119/63 03/02/21 08:00 Pulse Ox 93 L 03/02/21 08:00 Intake & Output 03/01/21 03/02/21 03/02/21 18:59 06:59 18:59 Intake Total 960 Output Total 1000 1800 Balance -40 -1800 Weight 82.5 kg Intake: Oral 960 Output: Urine 800 1500 Stool 200 300 Other: Voiding Method Urinal Urinal # Voids 1 - Exam No acute distress, oriented 3. The patient is currently on 5 L about 2 by nasal cannula with a pulse ox of 93%. Head exam was generally normal. There was no scleral icterus or corneal arcus. Mucous membranes were moist. HEENT examination is grossly unremarkable. Neck supple. Full range of motion. No adenopathy thyromegaly or neck vein distention. Cardiovascular examination reveals an irregular rhythm and rate. S1-S2 normal. No S3 or S4. A 2/6 systolic murmur is noted. Lungs reveal scattered bilateral rhonchi, and basilar crackles. No wheezes. Breath sounds equal bilaterally. Abdomen soft bowel sounds are heard. No masses or tenderness. Colostomy bag noted. Extremities are intact. No cyanosis or clubbing. Trace edema noted. Skin is without rash or lesion. Neurologic examination is brief but nonfocal. - Labs CBC & Chem 7: 03/02/21 07:14 03/02/21 07:14 Labs: Abnormal Lab Results - Last 24 Hours (Table) 03/01/21 03/01/21 03/01/21 Range/Units 12:40 16:50 20:08 RBC (4.30-5.90) m/uL Hgb (13.0-17.5) gm/dL Hct (39.0-53.0) % Sodium (137-145) mmol/L Chloride (98-107) mmol/L Carbon Dioxide (22-30) mmol/L BUN (9-20) mg/dL Creatinine (0.66-1.25) mg/dL Glucose (74-99) mg/dL POC Glucose (mg/dL) 239 H 211 H 267 H (75-99) mg/dL Total Protein (6.3-8.2) g/dL Albumin (3.5-5.0) g/dL 03/02/21 03/02/21 03/02/21 Range/Units 06:06 07:14 07:14 RBC 4.25 L (4.30-5.90) m/uL Hgb 11.7 L (13.0-17.5) gm/dL Hct 37.0 L (39.0-53.0) % Sodium 135 L (137-145) mmol/L Chloride 93 L (98-107) mmol/L Carbon Dioxide 34 H (22-30) mmol/L BUN 62 H (9-20) mg/dL Creatinine 2.12 H (0.66-1.25) mg/dL Glucose 130 H (74-99) mg/dL POC Glucose (mg/dL) 182 H (75-99) mg/dL Total Protein 6.0 L (6.3-8.2) g/dL Albumin 3.1 L (3.5-5.0) g/dL 03/02/21 Range/Units 11:30 RBC (4.30-5.90) m/uL Hgb (13.0-17.5) gm/dL Hct (39.0-53.0) % Sodium (137-145) mmol/L Chloride (98-107) mmol/L Carbon Dioxide (22-30) mmol/L BUN (9-20) mg/dL Creatinine (0.66-1.25) mg/dL Glucose (74-99) mg/dL POC Glucose (mg/dL) 151 H (75-99) mg/dL Total Protein (6.3-8.2) g/dL Albumin (3.5-5.0) g/dL Assessment and Plan Plan: 1 acute hypoxemic respiratory failure, secondary to CHF. 2 Atrial fibrillation with RVR. 3 Chronic diastolic CHF, with right-sided pleural effusion. 4 Status post bovine aortic valve replacement for aortic stenosis (2014). 5 History of CVA. 6 History of diabetes mellitus. 7 History of hyperlipidemia. 8 History of hypertension. 9 Prior history of myocardial infarction. 10 Obstructive sleep apnea syndrome, currently on CPAP. 11 History of gout. 12 Status post bowel resection for cancer, status post ileostomy. 13 acute on top of Chronic kidney disease. 14 Severe pulmonary hypertension. Plan: Computed tomography scan of the chest was reviewed Finding is consistent more with CHF rather than infection Continue IV Lasix Monitor renal function The patient is already negative fluid balance The patient has been weaned down to 5 L by nasal cannula The pro-calcitonin level was low We'll continue to follow
--- NOTE | 2021-03-02 13:55 | PN ---
PROGRESS NOTE Patient is seen for followup for acute kidney injury and volume overload. He is currently being diuresed. The patient is maintained on IV Lasix. Zaroxolyn was added with good output and negative fluid balance. Yesterday patient was -1.5 L and today so far he has already -1.8 L. Overall, he states he is feeling better. Plan for possible discharge today. PHYSICAL EXAMINATION: On examination today, blood pressure is 121/68, heart rate 87 per minute. He is afebrile. EXAMINATION OF THE HEART: S1, S2. EXAMINATION OF THE LUNGS: Bilateral breath sounds are heard. Decreased breath sounds at bases. Abdomen is soft, morbidly obese. Examination of lower extremities shows edema 2+ bilaterally. [employer] MERCHANDISE exam grossly intact. LABS: Labs show sodium 135, potassium 3.8, chloride 93, CO2 is 34, BUN 62 serum creatinine 2.12. ASSESSMENT: 1. Acute kidney injury cardiorenal currently being diuresed. Serum creatinine staying close to 2. It did decrease to 1.87 yesterday. Today it is at 2.1. I will continue with the Zaroxolyn along with the Lasix. If patient is discharged, he will go home on slightly higher dose of what he was taking at home. It appears that patient was on Lasix 40 mg b.i.d. He will likely need 60 mg twice a day and metolazone can be added once or twice a week depending on his volume status as outpatient. 2. Congestive heart failure acute on top of chronic, diastolic. 3. Acute hypoxic respiratory failure secondary to congestive heart failure currently improving. 4. 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 5. Pulmonary hypertension with chronic lower extremity edema. PLAN: Continue with the Lasix and Zaroxolyn for now. If patient is discharged, he can go home on 60 mg of Lasix p.o. b.i.d. and Zaroxolyn can be added 1 or 2 times a week depending on his volume status. He will need close followup as outpatient. Volume status has improved over the past 2-3 days. MMODL / IJN: [id number] /
[2021-03-02 17:10] LABS: Glucose,Whole Blood 169 mg/dL (75-99)
[2021-03-02 20:37] LABS: Glucose,Whole Blood 287 mg/dL (75-99)
[2021-03-02] MEDS: INSULIN DETEMIR (LEVEMIR) 100 UNIT/ML SYR SQ SCH (21:03)
[2021-03-02] MEDS: LATANOPROST 0.005% OPHTH DROPS 2.5 ML BTL BOTH EYES SCH (21:04)
[2021-03-02] MEDS: CYCLOBENZAPRINE 10 MG TAB PO PRN (22:47)
[2021-03-03 06:02] LABS: Glucose,Whole Blood 73 mg/dL (75-99)
[2021-03-03] MEDS: PANTOPRAZOLE 40 MG TABLET PO SCH (06:52)
[2021-03-03] MEDS: INSULIN ASPART (NovoLOG) 100 UNIT/ML VIAL SQ SCH ×4 (06:52→20:35)
[2021-03-03 08:37] LABS: Basophils # (A) 0.1 k/uL (0-0.2); Basophils % (A) 1 %; Eosinophils # (A) 0.4 k/uL (0-0.7); Eosinophils % (A) 4 %; HGB 12.2 gm/dL (13.0-17.5); Lymphocytes # (A) 1.1 k/uL (1.0-4.8); Lymphocytes % (A) 13 %; MCH 28.6 pg (25.0-35.0); MCV 86.6 fL (80.0-100.0); Mean Platelet Volume 7.7; Monocytes # (A) 0.7 k/uL (0-1.0); Monocytes % (A) 8 %; Neutrophils # (A) 6.3 k/uL (1.3-7.7); Neutrophils % (A) 73 %; Platelet Count 304 k/uL (150-450); RBC 4.27 m/uL (4.30-5.90); WBC 8.6 k/uL (3.8-10.6)
[2021-03-03 08:58] LABS: Albumin 3.1 g/dL (3.5-5.0); Calcium 8.8 mg/dL (8.4-10.2); Total Bilirubin 0.6 mg/dL (0.2-1.3)
[2021-03-03] MEDS: HYDROcodone/APAP 10-325MG 1 EACH TAB PO PRN ×3 (09:13→22:32)
[2021-03-03] MEDS: MAGNESIUM OXIDE 400 MG TAB PO SCH ×2 (09:13→20:40)
[2021-03-03] MEDS: METOPROLOL SUCCINATE (ER) 50 MG TAB.ER.24H PO SCH ×2 (09:14→20:40)
[2021-03-03] MEDS: metOLazone 5 MG TAB PO SCH (09:14)
[2021-03-03] MEDS: APIXABAN 5 MG TAB PO SCH ×2 (09:14→20:40)
[2021-03-03] MEDS: ATORVASTATIN 10 MG TAB PO SCH (09:14)
[2021-03-03] MEDS: FENOFIBRATE 160 MG TAB PO SCH (09:14)
[2021-03-03] MEDS: CEFDINIR 300 MG CAP PO SCH ×2 (09:14→20:40)
[2021-03-03] MEDS: guaiFENesin 600 MG TABLET.ER PO SCH ×2 (09:14→20:40)
[2021-03-03] MEDS: FEBUXOSTAT 80 MG PO SCH (09:15)
[2021-03-03] MEDS: DILTIAZEM ORAL 30 MG TAB PO SCH ×3 (09:15→22:32)
[2021-03-03] MEDS: FUROSEMIDE 10 MG/ML 4 ML VIAL IV SCH ×2 (09:15→20:40)
--- NOTE | 2021-03-03 10:22 | P.PN ---
Subjective Progress Note Date: 03/03/21 Faisal Andrade, is a 70-year-old male who presented to [facility] emergency room with a chief complaint of worsening shortness of breath over several weeks and cough and chest congestion, he was evaluated in the emergency room vital examination on presentation revealed a temperature of 96.7 also 130 respiration 26 blood pressure 142/87 pulse ox 96% on 3 L nasal cannula white blood count was 9.6 hemoglobin 14.1 platelet count 291 sodium 140 potassium 4.7 chloride 110 CO2 20 BUN 58 creatinine 2.4 troponin level was 0.044 BNP was elevated at 5717 Gu virus PCR was negative. Chest x-ray done in the emergency room revealed right lower lobe infiltrate suggestive of pneumonia, EKG revealed evidence of atrial fibrillation with rapid ventricular response. Patient was admitted to telemetry floor, he was started on IV antibiotics ceftriaxone and Zithromax, he was started on Cardizem drip, and IV Lasix, cardiology consultation and pulmonary consultation were requested. On 02/13/2021 patient was seen and examined on the medical floor, he is alert and oriented 3 in no apparent distress he is still complaining of shortness of breath however he noticed some improvement since yesterday he also had some occasional cough otherwise he denies any complaints there is no fever or chills no headache or dizziness no chest pain no nausea or vomiting no abdominal pain no diarrhea no blood in the stools no burning with urination no frequency or urgency and no hematuria he is maintained on IV Lasix his creatinine is going up chronic kidney disease will add a consult for nephrology at this time On 02/14/2021 patient currently resting on BiPAP. Patient does wake up quickly falls back to sleep. Per nursing staff patient remained short of breath with minimal activity. Patient remains on IV Lasix. IV Lasix have been decreased to 2 acute kidney injury. Cardiology, pulmonary and nephrology services are following. Ultrasound kidneys has been ordered per nephrology. At this time patient denies nausea vomiting or diarrhea. Patient denies any urinary burning or frequency On 02/15/2021 patient currently resting on BiPAP. Patient does wake up quickly falls back to sleep. Per nursing staff patient remained short of breath with minimal activity. he is still complaining of shortness of breath however he noticed some improvement since yesterday he also had some occasional cough otherwise he denies any complaints there is no fever or chills no headache or dizziness no chest pain no nausea or vomiting no abdominal pain no diarrhea no blood in the stools no burning with urination no frequency or urgency and no hematuria he is maintained on IV Lasix his creatinine is going up chronic kidney disease will add a consult for nephrology at this time. Patient remains on IV La six. IV Lasix have been decreased to 2 acute kidney injury. Cardiology, pulmonary and nephrology services are following. Ultrasound kidneys has been ordered per nephrology. At this time patient denies nausea vomiting or diarrhea. Patient denies any urinary burning or frequency On 02/16/2021 patient currently resting on BiPAP. Patient does wake up was able to keep breakfast. Patient maintained on IV Lasix 40 mg twice a day. Ultrasound of kidneys completed showing findings suggestive of medical renal disease. Repeat labs have been ordered. Patient denies chest pain. Patient denies nausea vomiting or diarrhea. Patient denies any urinary burning or frequency. Cardiology, pulmonary and nephrology services are following On 02/17/2021 patient's alert and oriented 3. Patient currently resting on BiPAP. Patient reports he is starting to feel better. Creatinine and bun trending down. Patient does report some shortness breath but does state this is improved. Patient denies chest pain. Patient denies nausea vomiting or diarrhea. Patient denies any urinary burning or frequency. Patient remains on azithromycin and Rocephin for IV antibiotics. IV Lasix 40 mg every 12 hours. Cardiology, pulmonary and nephrology following On 02/18/2021 patient was seen and examined on the medical floor he is alert and oriented 3 in no apparent distress he is still complaining of cough and shortness of breath otherwise he denies any complaints there is no fever or chills no headache or dizziness step pain no palpitation no nausea or vomiting no abdominal pain no diarrhea no blood in the stools no burning with urination no frequency or urgency and no hip On 02/19/2021 Patient was seen and examined on the medical floor, he is alert and oriented x 3 in no distress, he denies any complaints there is no fever or chills no headache or dizziness no chest pain no shortness of breath no palpitation no nausea or vomiting no abdominal pain no diarrhea no blood in the stools no burning with urination no frequency or urgency and no hematuria, there is no weakness or numbness in any of the extremities no change in vision speech or gait. He is still complaining of cough, will add Mucinex and try to obtain a sputum sample for culture. On 02/20/2021 Patient was seen and examined on the medical floor, he is alert and oriented x 3 in no distress, he denies any complaints there is no fever or chills no headache or dizziness no chest pain no shortness of breath no palpitation no cough no nausea or vomiting no abdominal pain no diarrhea no blood in the stools no burning with urination no frequency or urgency and no hematuria, there is no weakness or numbness in any of the extremities no change in vision speech or gait. Vital exam reveals a temperature of 97.9 pulse 1 or 2 respiration 20 lungs pressure 130/88 pulse ox 89% on 15 L high flow cannula. White blood count is 9.3 hemoglobin 12.9 platelet count 207 sodium 139 potassium 3.7 chloride 102 CO2 27 BUN 66 creatinine 1.75 On 02/21/2021 patient is alert and oriented 3 currently eating lunch. Patient denies chest pain or shortness breath. Patient denies nausea vomiting or diarrhea. Patient denies any urinary burning or frequency. Patient remains on 15 L high flow BiPAP at rest. Bun 66 creatinine 2.00. Pulmonary cardiology and nephrology services are following On 02/22/2021 patient was seen and examined on the medical floor he is alert and oriented 3 in no apparent distress he is still complaining of cough and shortness of breath otherwise he denies any complaints there is no fever or chills no headache or dizziness step pain no palpitation no nausea or vomiting no abdominal pain no diarrhea no blood in the stools no burning with urination no frequency or urgency and no hematuria patient is still requiring BiPAP On 02/24/2021 patient was seen and examined on the medical floor he is alert and oriented 3 in no distress, he is maintained on oxygen via nasal cannula and is tolerating well he is using BiPAP at night there is no fever or chills no headache or dizziness no chest pain no shortness of breath at rest no cough no nausea or vomiting no abdominal pain no diarrhea no blood in the stools no burning with urination no frequency or urgency and no hematuria On 02/25/2021 patient was seen and examined on the telemetry floor he is alert and oriented 3 in no distress currently he is maintained on BiPAP there is no fever or chills no headache or dizziness no chest pain no shortness of breath no cough no nausea or vomiting no abdominal pain no diarrhea no blood in the stools no burning with urination no frequency or urgency and no hematuria On 02/26/2021 patient was seen and examined on the telemetry floor he is alert and oriented, he is maintained on BiPAP he has worsening shortness of breath today. there is no fever or chills no headache or dizziness no chest pain no shortness of breath no cough no nausea or vomiting no abdominal pain no diarrhea no blood in the stools no burning with urination no frequency or urgency and no hematuria. will repeat CXR today. On 02/27/2021 patient was seen and examined on the medical floor he is alert and oriented 3 in no apparent distress he is still complaining of shortness of breath however he feels better than yesterday otherwise he denies any complaints at this time, repeat chest x-ray done yesterday did not reveal any significant change from prior, at this time I would ask pulmonary to reevaluate him again, patient received IV antibiotic for 14 days, I would discontinue IV antibiotic and start Omnicef orally, will follow closely possible discharge soon if stable. On 02/28/2021 patient's alert and oriented 3. Patient reports that he is feeling better. High flow decreased to 5 L. Pulmonary services reconsulted. Patient maintained on IV Lasix. Antibiotics adjusted to Omnicef. Patient will likely need home O2 upon discharge. Patient is improving progressing slowly. Discharge planning in place. Patient denies any chest pain. Patient denies nausea vomiting or diarrhea. Patient denies any urinary burning or frequency On 03/01/2021 patient was seen and examined on the medical floor due to lack of improvement over the last several days I have requested reevaluation by pulmonary, computed tomography scan of the chest without contrast was ordered and patient will be evaluated by Dr. Medina today, patient is still complaining of cough and shortness of breath and generalized weakness otherwise he denies any complaints there is no fever or chills no headache or dizziness no chest pain no nausea or vomiting no abdominal pain no diarrhea no blood in the stools no burning with urination no frequency or urgency and no hematuria On 03/02/2021 patient is currently resting comfortably in bed. Patient was reevaluated by pulmonary service remains on Lasix and Omnicef. CT of chest was performed showing bilateral lower lobe pulmonary infiltrates and atelectasis also likely related to bronchopneumonia cardiomegaly with pleural effusions. Congestive heart failure is possible. pleural fluid and pulmonary infiltrates patient is currently resting comfortably on 5 L and BiPAP at rest. patient den ies chest pain. Patient denies nausea vomiting or diarrhea. Patient denies any urinary burning or frequency On 03/03/2021 patient's alert and oriented currently sitting up comfortably in bed. Patient reports that he feels the best he has today since hospitalization. Patient remains on 5 L but discussed with nursing staff to attempt to wean oxygen down. Patient remains on IV Lasix and Omnicef. Patient denies chest pain. Patient denies nausea vomiting or diarrhea. Patient denies any urinary burning or frequency. Objective - Vital Signs Vital signs: Vital Signs Temp 97.8 F 03/03/21 08:15 Pulse 95 03/03/21 08:15 Resp 18 03/03/21 08:15 BP 103/62 03/03/21 08:15 Pulse Ox 93 L 03/03/21 08:15 Intake & Output 03/02/21 03/03/21 03/03/21 18:59 06:59 18:59 Intake Total 480 10 230 Output Total 1150 1850 1350 Balance -670 -1840 -1120 Weight 90 kg Intake: IV 10 Invasive Line 4 10 Oral 480 230 Output: Urine 400 1550 900 Stool 750 300 450 Other: Voiding Method Urinal # Voids 1 - Exam In general patient is alert and oriented 3 in no apparent distress HEENT head normocephalic and atraumatic Neck is supple no JVD no goiter no lymphadenopathy Chest exam reveals crackles in both lung zhang no wheezing Cardiac exam reveals irregular heart sounds with tachycardia no murmurs Abdomen is soft nontender no organomegaly with normal bowel sounds Extremity exam reveals 1+ edema, there is a large scabbed ulcer on the left pretibial area with mild surrounding erythema Neurological examination reveals no gross focal deficit - Labs CBC & Chem 7: 03/03/21 08:14 03/03/21 08:14 Labs: Abnormal Lab Results - Last 24 Hours (Table) 03/02/21 03/02/21 03/02/21 Range/Units 11:30 16:59 20:35 RBC (4.30-5.90) m/uL Hgb (13.0-17.5) gm/dL Hct (39.0-53.0) % Sodium (137-145) mmol/L Potassium (3.5-5.1) mmol/L Chloride (98-107) mmol/L Carbon Dioxide (22-30) mmol/L BUN (9-20) mg/dL Creatinine (0.66-1.25) mg/dL Glucose (74-99) mg/dL POC Glucose (mg/dL) 151 H 169 H 287 H (75-99) mg/dL Total Protein (6.3-8.2) g/dL Albumin (3.5-5.0) g/dL 03/03/21 03/03/21 03/03/21 Range/Units 05:50 08:14 08:14 RBC 4.27 L (4.30-5.90) m/uL Hgb 12.2 L (13.0-17.5) gm/dL Hct 37.0 L (39.0-53.0) % Sodium 136 L (137-145) mmol/L Potassium 3.0 L (3.5-5.1) mmol/L Chloride 92 L (98-107) mmol/L Carbon Dioxide 38 H (22-30) mmol/L BUN 61 H (9-20) mg/dL Creatinine 2.00 H (0.66-1.25) mg/dL Glucose 106 H (74-99) mg/dL POC Glucose (mg/dL) 73 L (75-99) mg/dL Total Protein 6.0 L (6.3-8.2) g/dL Albumin 3.1 L (3.5-5.0) g/dL Assessment and Plan Plan: Acute pneumonia patient was started on IV Rocephin and IV Zithromax. Pulmonary services are following antibiotic adjusted to Omnicef. Pulmonary services reconsulted Atrial fibrillation with rapid ventricular response. Patient remains on eliquis for anticoagulation. Senia Raygoza. Cardiology services are following Acute congestive heart failure exacerbation with check echocardiogram cardiology consultation requested. Patient remains on IV Lasix. Underlying history of hypertension Underlying history of COPD Underlying history of coronary artery disease Underlying history of hyperlipidemia Underlying history of gout Acute kidney injury. Creatinine up to 3.16. Nephrology services are consulted. Ultrasound of kidneys completed showing findings suggestive of medical renal disease. DVT prophylaxis eliquis. GI prophylaxis Protonix Cardiology, pulmonary and nephrology services are following
--- NOTE | 2021-03-03 10:33 | P.PN ---
Subjective Patient is seen in follow-up for acute kidney injury and chronic kidney disease. Patient has chronic kidney disease stage IIIB with baseline creatinine near 2. Renal function stable. Maintained IV oral Lasix. Good urine output. Oral intake fair. Blood pressure stable. Currently on 4 L nasal cannula. Vital signs are stable. General: The patient appeared well nourished and normally developed. HEENT: On nasal cannula. LUNGS: Breath sounds decreased. HEART: Rate and Rhythm are regular. ABDOMEN: Soft, nontender. EXTREMITITES: Trace edema. Objective - Vital Signs Vital signs: Vital Signs Temp 97.8 F 03/03/21 08:15 Pulse 95 03/03/21 08:15 Resp 18 03/03/21 08:15 BP 103/62 03/03/21 08:15 Pulse Ox 93 L 03/03/21 08:15 Intake & Output 03/02/21 03/03/21 03/03/21 18:59 06:59 18:59 Intake Total 480 10 230 Output Total 1150 1850 1350 Balance -670 -1840 -1120 Weight 90 kg Intake: IV 10 Invasive Line 4 10 Oral 480 230 Output: Urine 400 1550 900 Stool 750 300 450 Other: Voiding Method Urinal # Voids 1 - Labs CBC & Chem 7: 03/03/21 08:14 03/03/21 08:14 Labs: Abnormal Lab Results - Last 24 Hours (Table) 03/02/21 03/02/21 03/02/21 Range/Units 11:30 16:59 20:35 RBC (4.30-5.90) m/uL Hgb (13.0-17.5) gm/dL Hct (39.0-53.0) % Sodium (137-145) mmol/L Potassium (3.5-5.1) mmol/L Chloride (98-107) mmol/L Carbon Dioxide (22-30) mmol/L BUN (9-20) mg/dL Creatinine (0.66-1.25) mg/dL Glucose (74-99) mg/dL POC Glucose (mg/dL) 151 H 169 H 287 H (75-99) mg/dL Total Protein (6.3-8.2) g/dL Albumin (3.5-5.0) g/dL 03/03/21 03/03/21 03/03/21 Range/Units 05:50 08:14 08:14 RBC 4.27 L (4.30-5.90) m/uL Hgb 12.2 L (13.0-17.5) gm/dL Hct 37.0 L (39.0-53.0) % Sodium 136 L (137-145) mmol/L Potassium 3.0 L (3.5-5.1) mmol/L Chloride 92 L (98-107) mmol/L Carbon Dioxide 38 H (22-30) mmol/L BUN 61 H (9-20) mg/dL Creatinine 2.00 H (0.66-1.25) mg/dL Glucose 106 H (74-99) mg/dL POC Glucose (mg/dL) 73 L (75-99) mg/dL Total Protein 6.0 L (6.3-8.2) g/dL Albumin 3.1 L (3.5-5.0) g/dL Assessment and Plan Plan: Assessment: 1. Acute kidney injury mostly prerenal secondary to cardiorenal syndrome. Renal function fairly stable. Creatinine 2 today. No hydronephrosis on kidney ultrasound. 2. Chronic kidney disease stage IIIB with baseline creatinine near 2 secondary to diabetic kidney disease and cardiorenal syndrome. 3. Acute on chronic diastolic CHF with moderate to severe tricuspid regurgitation, moderate mitral regurgitation. 4. Severe pulmonary hypertension. 5. Hypokalemia from diuresis. Plan: Maintain IV Lasix - will change to oral Lasix 60 mg twice daily upon discharge Maintain metolazone. Potassium being replaced. Avoid nephrotoxins. Continue to monitor renal function and urine output. Repeat electrolytes in the morning, including magnesium level.
--- NOTE | 2021-03-03 10:45 | P.PN ---
Subjective Progress Note Date: 03/03/21 03/01/2021, I'm evaluating this patient upon the request of the primary care. The patient was seen for acute hypoxic respiratory failure secondary to a pneumonia of the right lower lobe in addition to a combination of CHF. The patient was also in nature fibrillation with rapid ventricular response. The patient diastolic heart failure with a chronic sore effusion. The patient has undergone a previous aortic valve replacement for aortic stenosis and the patient has a bovine bioprosthetic valve. The patient also has multiple comorbidities including CVA, diabetes mellitus, hypertension and hyperlipidemia and the patient also has obstructive sleep apnea, coronary artery disease with previous DC. The patient has undergone ileostomy for bowel resection. He does have chronic kidney disease and secondary pulmonary hypertension. During the course the patient received antibiotics and currently is on Omnicef down milligrams by mouth twice a day. The patient is also on Lasix 40 mg every 12 hours. On blood work, the patient has developed a stable creatinine of 1.8 and the patient has recovered from his acute kidney injury. His white cell count is at 9.3. His most recent chest x-ray was done today and it shows infiltrates in the left upper lobe, right lower lobe consolidation, pleural effusion on the right and some fluid in the fissure. Limited infiltration is also seen in the right upper lobe. Post thoracotomy changes seen. There is also a dilated gastric bubble. 03/02/2021, his condition is stable and the patient is on 5 L of oxygen by nasal cannula. He is still on diuretics and he is on Lasix 40 mg IV every 12 hours. He is diuresing well and his fluid balance remains negative at least 3.1 L on 02/28/2021 and 1.5 L on 03/01/2021. I did a CAT scan of the chest and this was a noncontrast CAT scan of the chest yesterday and I reviewed the films. The findings are more consistent with CHF. The patient had cardiomegaly and bilateral pleural effusions. There was also some interstitial edema that was rather asymmetric and despite asymmetric nature, the presentation is more consistent with CHF. He was also calcified granulomas bilaterally involving the lung hilum and mediastinal lymph node calcification. The patient remains on Omnicef. Suspicion for infection is low. He is controlled calcitonin level is at 0.15. His creatinine is at 2.1 which is essentially stable. 03/03/2021, the patient states that this is the best she has felt since he came into the hospital. He is currently on oxygen at 4 L and pulse ox is around 93%. He remains on IV Lasix. He is diuresing well and he remains in a negative fluid balance of 2.5 L over the past 24 hours. No chest pain. No shortness of breath. There is improvement in swelling in lower extremities bilaterally. Also, the patient has a stable renal function with a creatinine of 2 and a BUN of 61. Potassium is being replaced and his potassium level is at 3.0. No fever. No chills. Pro-calcitonin level was low at 0.15 Objective - Vital Signs Vital signs: Vital Signs Temp 97.8 F 03/03/21 08:15 Pulse 95 03/03/21 08:15 Resp 18 03/03/21 08:15 BP 103/62 03/03/21 08:15 Pulse Ox 93 L 03/03/21 08:15 Intake & Output 03/02/21 03/03/21 03/03/21 18:59 06:59 18:59 Intake Total 480 10 230 Output Total 1150 1850 1350 Balance -670 -1840 -1120 Weight 90 kg Intake: IV 10 Invasive Line 4 10 Oral 480 230 Output: Urine 400 1550 900 Stool 750 300 450 Other: Voiding Method Urinal # Voids 1 - Exam No acute distress, oriented 3. The patient is currently on 4L by nasal cannula with a pulse ox of 93%. Head exam was generally normal. There was no scleral icterus or corneal arcus. Mucous membranes were moist. HEENT examination is grossly unremarkable. Neck supple. Full range of motion. No adenopathy thyromegaly or neck vein distention. Cardiovascular examination reveals an irregular rhythm and rate. S1-S2 normal. No S3 or S4. A 2/6 systolic murmur is noted. Lungs reveal scattered bilateral rhonchi, and basilar crackles. No wheezes. Breath sounds equal bilaterally. Abdomen soft bowel sounds are heard. No masses or tenderness. Colostomy bag noted. Extremities are intact. No cyanosis or clubbing. Trace edema noted. Skin is without rash or lesion. Neurologic examination is brief but nonfocal. - Labs CBC & Chem 7: 03/03/21 08:14 03/03/21 08:14 Labs: Abnormal Lab Results - Last 24 Hours (Table) 03/02/21 03/02/21 03/02/21 Range/Units 11:30 16:59 20:35 RBC (4.30-5.90) m/uL Hgb (13.0-17.5) gm/dL Hct (39.0-53.0) % Sodium (137-145) mmol/L Potassium (3.5-5.1) mmol/L Chloride (98-107) mmol/L Carbon Dioxide (22-30) mmol/L BUN (9-20) mg/dL Creatinine (0.66-1.25) mg/dL Glucose (74-99) mg/dL POC Glucose (mg/dL) 151 H 169 H 287 H (75-99) mg/dL Total Protein (6.3-8.2) g/dL Albumin (3.5-5.0) g/dL 03/03/21 03/03/21 03/03/21 Range/Units 05:50 08:14 08:14 RBC 4.27 L (4.30-5.90) m/uL Hgb 12.2 L (13.0-17.5) gm/dL Hct 37.0 L (39.0-53.0) % Sodium 136 L (137-145) mmol/L Potassium 3.0 L (3.5-5.1) mmol/L Chloride 92 L (98-107) mmol/L Carbon Dioxide 38 H (22-30) mmol/L BUN 61 H (9-20) mg/dL Creatinine 2.00 H (0.66-1.25) mg/dL Glucose 106 H (74-99) mg/dL POC Glucose (mg/dL) 73 L (75-99) mg/dL Total Protein 6.0 L (6.3-8.2) g/dL Albumin 3.1 L (3.5-5.0) g/dL Assessment and Plan Plan: 1 acute hypoxemic respiratory failure, secondary to CHF. Clinically improving 2 Atrial fibrillation with RVR. 3 Chronic diastolic CHF, with right-sided pleural effusion. 4 Status post bovine aortic valve replacement for aortic stenosis (2014). 5 History of CVA. 6 History of diabetes mellitus. 7 History of hyperlipidemia. 8 History of hypertension. 9 Prior history of myocardial infarction. 10 Obstructive sleep apnea syndrome, currently on CPAP. 11 History of gout. 12 Status post bowel resection for cancer, status post ileostomy. 13 acute on top of Chronic kidney disease. 14 Severe pulmonary hypertension. Plan: Computed tomography scan of the chest was reviewed Finding is consistent more with CHF rather than infection and the patient is responding to IV diuretics Continue IV Lasix Monitor renal function, creatinine stable The patient is already negative fluid balance The patient has been weaned down to 4 L by nasal cannula The pro-calcitonin level was low We'll continue to follow
[2021-03-03 11:46] LABS: Glucose,Whole Blood 147 mg/dL (75-99)
[2021-03-03] MEDS: POTASSIUM CHLORIDE ER 20 MEQ TAB.ER PO SCH ×3 (12:36→15:39)
[2021-03-03 16:41] LABS: Glucose,Whole Blood 166 mg/dL (75-99)
[2021-03-03 20:04] LABS: Glucose,Whole Blood 183 mg/dL (75-99)
[2021-03-03] MEDS: INSULIN DETEMIR (LEVEMIR) 100 UNIT/ML SYR SQ SCH (20:40)
[2021-03-03] MEDS: LATANOPROST 0.005% OPHTH DROPS 2.5 ML BTL BOTH EYES SCH (20:41)
[2021-03-03] MEDS: CYCLOBENZAPRINE 10 MG TAB PO PRN (22:32)
[2021-03-04 06:19] LABS: Glucose,Whole Blood 71 mg/dL (75-99)
[2021-03-04] MEDS: INSULIN ASPART (NovoLOG) 100 UNIT/ML VIAL SQ SCH ×4 (06:32→21:11)
[2021-03-04] MEDS: PANTOPRAZOLE 40 MG TABLET PO SCH (07:00)
[2021-03-04] MEDS: HYDROcodone/APAP 10-325MG 1 EACH TAB PO PRN ×3 (07:02→23:19)
[2021-03-04 07:46] LABS: Basophils # (A) 0.1 k/uL (0-0.2); Basophils % (A) 1 %; Eosinophils # (A) 0.4 k/uL (0-0.7); Eosinophils % (A) 5 %; HCT 36.1 % (39.0-53.0); Lymphocytes # (A) 1.3 k/uL (1.0-4.8); Lymphocytes % (A) 20 %; MCH 28.5 pg (25.0-35.0); MCHC 33.2 g/dL (31.0-37.0); MCV 85.8 fL (80.0-100.0); Mean Platelet Volume 7.6; Monocytes # (A) 0.6 k/uL (0-1.0); Monocytes % (A) 9 %; Neutrophils # (A) 4.3 k/uL (1.3-7.7); Neutrophils % (A) 64 %; Platelet Count 295 k/uL (150-450); RBC 4.21 m/uL (4.30-5.90); RDW 14.9 % (11.5-15.5); WBC 6.8 k/uL (3.8-10.6)
[2021-03-04 08:02] LABS: Albumin 2.9 g/dL (3.5-5.0); Magnesium 1.1 mg/dL (1.6-2.3); Total Bilirubin 0.6 mg/dL (0.2-1.3); Total Protein 5.8 g/dL (6.3-8.2)
[2021-03-04] MEDS: ATORVASTATIN 10 MG TAB PO SCH (08:46)
[2021-03-04] MEDS: DILTIAZEM ORAL 30 MG TAB PO SCH ×3 (08:46→21:10)
[2021-03-04] MEDS: CEFDINIR 300 MG CAP PO SCH ×2 (08:47→21:10)
[2021-03-04] MEDS: METOPROLOL SUCCINATE (ER) 50 MG TAB.ER.24H PO SCH ×2 (08:47→21:10)
[2021-03-04] MEDS: APIXABAN 5 MG TAB PO SCH ×2 (08:47→21:10)
[2021-03-04] MEDS: metOLazone 5 MG TAB PO SCH (08:47)
[2021-03-04] MEDS: guaiFENesin 600 MG TABLET.ER PO SCH ×2 (08:47→21:10)
[2021-03-04] MEDS: MAGNESIUM OXIDE 400 MG TAB PO SCH ×2 (08:47→21:10)
[2021-03-04] MEDS: FUROSEMIDE 10 MG/ML 4 ML VIAL IV SCH ×2 (08:47→21:10)
[2021-03-04] MEDS: FENOFIBRATE 160 MG TAB PO SCH (08:47)
[2021-03-04] MEDS: FEBUXOSTAT 80 MG PO SCH (08:49)
--- NOTE | 2021-03-04 10:14 | P.PN ---
Subjective Progress Note Date: 03/04/21 03/01/2021, I'm evaluating this patient upon the request of the primary care. The patient was seen for acute hypoxic respiratory failure secondary to a pneumonia of the right lower lobe in addition to a combination of CHF. The patient was also in nature fibrillation with rapid ventricular response. The patient diastolic heart failure with a chronic sore effusion. The patient has undergone a previous aortic valve replacement for aortic stenosis and the patient has a bovine bioprosthetic valve. The patient also has multiple comorbidities including CVA, diabetes mellitus, hypertension and hyperlipidemia and the patient also has obstructive sleep apnea, coronary artery disease with previous AL. The patient has undergone ileostomy for bowel resection. He does have chronic kidney disease and secondary pulmonary hypertension. During the course the patient received antibiotics and currently is on Omnicef down milligrams by mouth twice a day. The patient is also on Lasix 40 mg every 12 hours. On blood work, the patient has developed a stable creatinine of 1.8 and the patient has recovered from his acute kidney injury. His white cell count is at 9.3. His most recent chest x-ray was done today and it shows infiltrates in the left upper lobe, right lower lobe consolidation, pleural effusion on the right and some fluid in the fissure. Limited infiltration is also seen in the right upper lobe. Post thoracotomy changes seen. There is also a dilated gastric bubble. 03/02/2021, his condition is stable and the patient is on 5 L of oxygen by nasal cannula. He is still on diuretics and he is on Lasix 40 mg IV every 12 hours. He is diuresing well and his fluid balance remains negative at least 3.1 L on 02/28/2021 and 1.5 L on 03/01/2021. I did a CAT scan of the chest and this was a noncontrast CAT scan of the chest yesterday and I reviewed the films. The findings are more consistent with CHF. The patient had cardiomegaly and bilateral pleural effusions. There was also some interstitial edema that was rather asymmetric and despite asymmetric nature, the presentation is more consistent with CHF. He was also calcified granulomas bilaterally involving the lung hilum and mediastinal lymph node calcification. The patient remains on Omnicef. Suspicion for infection is low. He is controlled calcitonin level is at 0.15. His creatinine is at 2.1 which is essentially stable. 03/03/2021, the patient states that this is the best she has felt since he came into the hospital. He is currently on oxygen at 4 L and pulse ox is around 93%. He remains on IV Lasix. He is diuresing well and he remains in a negative fluid balance of 2.5 L over the past 24 hours. No chest pain. No shortness of breath. There is improvement in swelling in lower extremities bilaterally. Also, the patient has a stable renal function with a creatinine of 2 and a BUN of 61. Potassium is being replaced and his potassium level is at 3.0. No fever. No chills. Pro-calcitonin level was low at 0.15 03/04/2021, clinically improved and the patient is being checked on oxygen as his oxidation is improved considerably. He is still diuresing excellent with IV Lasix and the patient is a negative fluid balance of 4.5 L over the past 24 hours. Remains on Lasix 40 mg every 12 hours. He was already weaned down to 3 L of oxygen by nasal cannula. He is utilizing the BiPAP overnight. No chest pain. No nausea. No vomiting. No diarrhea. No abdominal pain. The white cell count is at 6.8. The patient's BUN is at 61 with a creatinine of 2.09. Potassium level is at 3.0 and needs to be replaced. Alert and oriented. No altered mentation. No other issues otherwise for now. Objective - Vital Signs Vital signs: Vital Signs Temp 97.9 F 03/04/21 04:00 Pulse 85 03/04/21 04:00 Resp 18 03/04/21 04:00 BP 114/64 03/04/21 04:00 Pulse Ox 97 03/04/21 04:00 Intake & Output 03/03/21 03/04/21 03/04/21 18:59 06:59 18:59 Intake Total 710 14 Output Total 3050 2200 200 Balance -2340 -2186 -200 Weight 106.5 kg Intake: IV 14 Invasive Line 4 14 Oral 710 Output: Gastric Drainage 300 Urine 2000 1650 200 Stool 450 250 Urine/Stool Mix 600 Other: Voiding Method Urinal # Voids 1 - Exam No acute distress, oriented 3. The patient is currently on 3L by nasal cannula with a pulse ox of 93%. Head exam was generally normal. There was no scleral icterus or corneal arcus. Mucous membranes were moist. HEENT examination is grossly unremarkable. Neck supple. Full range of motion. No adenopathy thyromegaly or neck vein distention. Cardiovascular examination reveals an irregular rhythm and rate. S1-S2 normal. No S3 or S4. A 2/6 systolic murmur is noted. Lungs reveal scattered bilateral rhonchi, and basilar crackles. No wheezes. Breath sounds equal bilaterally. Abdomen soft bowel sounds are heard. No masses or tenderness. Colostomy bag noted. Extremities are intact. No cyanosis or clubbing. Trace edema noted. Skin is without rash or lesion. Neurologic examination is brief but nonfocal. - Labs CBC & Chem 7: 03/04/21 06:53 03/04/21 06:53 Labs: Abnormal Lab Results - Last 24 Hours (Table) 03/03/21 03/03/21 03/03/21 Range/Units 11:45 16:40 20:03 RBC (4.30-5.90) m/uL Hgb (13.0-17.5) gm/dL Hct (39.0-53.0) % Potassium (3.5-5.1) mmol/L Chloride (98-107) mmol/L Carbon Dioxide (22-30) mmol/L BUN (9-20) mg/dL Creatinine (0.66-1.25) mg/dL Glucose (74-99) mg/dL POC Glucose (mg/dL) 147 H 166 H 183 H (75-99) mg/dL Magnesium (1.6-2.3) mg/dL Total Protein (6.3-8.2) g/dL Albumin (3.5-5.0) g/dL 03/04/21 03/04/21 03/04/21 Range/Units 06:18 06:53 06:53 RBC 4.21 L (4.30-5.90) m/uL Hgb 12.0 L (13.0-17.5) gm/dL Hct 36.1 L (39.0-53.0) % Potassium 3.0 L (3.5-5.1) mmol/L Chloride 88 L (98-107) mmol/L Carbon Dioxide 37 H (22-30) mmol/L BUN 61 H (9-20) mg/dL Creatinine 2.09 H (0.66-1.25) mg/dL Glucose 71 L (74-99) mg/dL POC Glucose (mg/dL) 71 L (75-99) mg/dL Magnesium 1.1 L (1.6-2.3) mg/dL Total Protein 5.8 L (6.3-8.2) g/dL Albumin 2.9 L (3.5-5.0) g/dL Assessment and Plan Plan: 1 acute hypoxemic respiratory failure, secondary to CHF. Clinically improving, currently down to 3 days of oxygen by nasal cannula. History requiring oxygen. We checked them on room air and he dropped in the low 80s. 2 Atrial fibrillation with RVR, currently stable 3 Chronic diastolic CHF, with right-sided pleural effusion. 4 Status post bovine aortic valve replacement for aortic stenosis (2014). 5 History of CVA. 6 History of diabetes mellitus. 7 History of hyperlipidemia. 8 History of hypertension. 9 Prior history of myocardial infarction. 10 Obstructive sleep apnea syndrome, currently on CPAP. 11 History of gout. 12 Status post bowel resection for cancer, status post ileostomy. 13 acute on top of Chronic kidney disease. 14 Severe pulmonary hypertension. Plan: Responding to diuretics still requiring 3 days of Bactrim by nasal cannula Computed tomography scan of the chest was reviewed Finding is consistent more with CHF rather than infection and the patient is responding to IV diuretics Continue IV Lasix, making excellent urine output Monitor renal function, creatinine stable The patient is already negative fluid balance The patient has been weaned down to 3 L by nasal cannula The pro-calcitonin level was low We'll continue to follow
[2021-03-04] MEDS: POTASSIUM CHLORIDE ER 20 MEQ TAB.ER PO SCH ×3 (11:10→12:51)
[2021-03-04] MEDS: MAGNESIUM SULFATE-D5W PMX 1 GM in DEXTROSE/WATER 1 100ML.BAG IVPB SCH ×3 (11:10→14:16)
--- NOTE | 2021-03-04 11:26 | P.PN ---
Subjective Patient is seen in follow-up for acute kidney injury and chronic kidney disease. Patient has chronic kidney disease stage IIIB with baseline creatinine near 2. Renal function fairly stable. Maintained IV Lasix. Good urine output. Oral intake fair. Blood pressure stable. Currently on 3 L nasal cannula. Vital signs are stable. General: The patient appeared well nourished and normally developed. HEENT: On nasal cannula. LUNGS: Breath sounds decreased. HEART: Rate and Rhythm are regular. ABDOMEN: Soft, nontender. EXTREMITITES: Trace edema. Objective - Vital Signs Vital signs: Vital Signs Temp 97.9 F 03/04/21 04:00 Pulse 64 03/04/21 08:15 Resp 17 03/04/21 08:15 BP 105/59 03/04/21 08:15 Pulse Ox 95 03/04/21 08:15 Intake & Output 03/03/21 03/04/21 03/04/21 18:59 06:59 18:59 Intake Total 710 14 480 Output Total 3050 2200 200 Balance -2340 -2186 280 Weight 106.5 kg Intake: IV 14 Invasive Line 4 14 Oral 710 480 Output: Gastric Drainage 300 Urine 2000 1650 200 Stool 450 250 Urine/Stool Mix 600 Other: Voiding Method Urinal # Voids 1 - Labs CBC & Chem 7: 03/04/21 06:53 03/04/21 06:53 Labs: Abnormal Lab Results - Last 24 Hours (Table) 03/03/21 03/03/21 03/03/21 Range/Units 11:45 16:40 20:03 RBC (4.30-5.90) m/uL Hgb (13.0-17.5) gm/dL Hct (39.0-53.0) % Potassium (3.5-5.1) mmol/L Chloride (98-107) mmol/L Carbon Dioxide (22-30) mmol/L BUN (9-20) mg/dL Creatinine (0.66-1.25) mg/dL Glucose (74-99) mg/dL POC Glucose (mg/dL) 147 H 166 H 183 H (75-99) mg/dL Magnesium (1.6-2.3) mg/dL Total Protein (6.3-8.2) g/dL Albumin (3.5-5.0) g/dL 03/04/21 03/04/21 03/04/21 Range/Units 06:18 06:53 06:53 RBC 4.21 L (4.30-5.90) m/uL Hgb 12.0 L (13.0-17.5) gm/dL Hct 36.1 L (39.0-53.0) % Potassium 3.0 L (3.5-5.1) mmol/L Chloride 88 L (98-107) mmol/L Carbon Dioxide 37 H (22-30) mmol/L BUN 61 H (9-20) mg/dL Creatinine 2.09 H (0.66-1.25) mg/dL Glucose 71 L (74-99) mg/dL POC Glucose (mg/dL) 71 L (75-99) mg/dL Magnesium 1.1 L (1.6-2.3) mg/dL Total Protein 5.8 L (6.3-8.2) g/dL Albumin 2.9 L (3.5-5.0) g/dL Assessment and Plan Plan: Assessment: 1. Acute kidney injury mostly prerenal secondary to cardiorenal syndrome. Renal function fairly stable. Creatinine 2.09 today. No hydronephrosis on kidney ultrasound. 2. Chronic kidney disease stage IIIB with baseline creatinine near 2 secondary to diabetic kidney disease and cardiorenal syndrome. 3. Acute on chronic diastolic CHF with moderate to severe tricuspid regurgitation, moderate mitral regurgitation. 4. Severe pulmonary hypertension. 5. Hypokalemia from diuresis and hypomagnesemia. 6. Hypomagnesemia from diuresis. Plan: Maintain IV Lasix - will change to oral Lasix 60 mg twice daily upon discharge Maintain metolazone. Potassium and magnesium being replaced. Avoid nephrotoxins. Continue to monitor renal function and urine output. Repeat electrolytes in the morning.
[2021-03-04 12:01] LABS: Glucose,Whole Blood 126 mg/dL (75-99)
[2021-03-04] MEDS ORDERED: Potassium Replacement Protocol 1 EACH MISC MISCELLANE PRN (12:23)
--- NOTE | 2021-03-04 13:05 | P.PN ---
Subjective Progress Note Date: 03/04/21 Faisal Andrade, is a 70-year-old male who presented to [facility] emergency room with a chief complaint of worsening shortness of breath over several weeks and cough and chest congestion, he was evaluated in the emergency room vital examination on presentation revealed a temperature of 96.7 also 130 respiration 26 blood pressure 142/87 pulse ox 96% on 3 L nasal cannula white blood count was 9.6 hemoglobin 14.1 platelet count 291 sodium 140 potassium 4.7 chloride 110 CO2 20 BUN 58 creatinine 2.4 troponin level was 0.044 BNP was elevated at 5717 Gu virus PCR was negative. Chest x-ray done in the emergency room revealed right lower lobe infiltrate suggestive of pneumonia, EKG revealed evidence of atrial fibrillation with rapid ventricular response. Patient was admitted to telemetry floor, he was started on IV antibiotics ceftriaxone and Zithromax, he was started on Cardizem drip, and IV Lasix, cardiology consultation and pulmonary consultation were requested. On 02/13/2021 patient was seen and examined on the medical floor, he is alert and oriented 3 in no apparent distress he is still complaining of shortness of breath however he noticed some improvement since yesterday he also had some occasional cough otherwise he denies any complaints there is no fever or chills no headache or dizziness no chest pain no nausea or vomiting no abdominal pain no diarrhea no blood in the stools no burning with urination no frequency or urgency and no hematuria he is maintained on IV Lasix his creatinine is going up chronic kidney disease will add a consult for nephrology at this time On 02/14/2021 patient currently resting on BiPAP. Patient does wake up quickly falls back to sleep. Per nursing staff patient remained short of breath with minimal activity. Patient remains on IV Lasix. IV Lasix have been decreased to 2 acute kidney injury. Cardiology, pulmonary and nephrology services are following. Ultrasound kidneys has been ordered per nephrology. At this time patient denies nausea vomiting or diarrhea. Patient denies any urinary burning or frequency On 02/15/2021 patient currently resting on BiPAP. Patient does wake up quickly falls back to sleep. Per nursing staff patient remained short of breath with minimal activity. he is still complaining of shortness of breath however he noticed some improvement since yesterday he also had some occasional cough otherwise he denies any complaints there is no fever or chills no headache or dizziness no chest pain no nausea or vomiting no abdominal pain no diarrhea no blood in the stools no burning with urination no frequency or urgency and no hematuria he is maintained on IV Lasix his creatinine is going up chronic kidney disease will add a consult for nephrology at this time. Patient remains on IV La six. IV Lasix have been decreased to 2 acute kidney injury. Cardiology, pulmonary and nephrology services are following. Ultrasound kidneys has been ordered per nephrology. At this time patient denies nausea vomiting or diarrhea. Patient denies any urinary burning or frequency On 02/16/2021 patient currently resting on BiPAP. Patient does wake up was able to keep breakfast. Patient maintained on IV Lasix 40 mg twice a day. Ultrasound of kidneys completed showing findings suggestive of medical renal disease. Repeat labs have been ordered. Patient denies chest pain. Patient denies nausea vomiting or diarrhea. Patient denies any urinary burning or frequency. Cardiology, pulmonary and nephrology services are following On 02/17/2021 patient's alert and oriented 3. Patient currently resting on BiPAP. Patient reports he is starting to feel better. Creatinine and bun trending down. Patient does report some shortness breath but does state this is improved. Patient denies chest pain. Patient denies nausea vomiting or diarrhea. Patient denies any urinary burning or frequency. Patient remains on azithromycin and Rocephin for IV antibiotics. IV Lasix 40 mg every 12 hours. Cardiology, pulmonary and nephrology following On 02/18/2021 patient was seen and examined on the medical floor he is alert and oriented 3 in no apparent distress he is still complaining of cough and shortness of breath otherwise he denies any complaints there is no fever or chills no headache or dizziness step pain no palpitation no nausea or vomiting no abdominal pain no diarrhea no blood in the stools no burning with urination no frequency or urgency and no hip On 02/19/2021 Patient was seen and examined on the medical floor, he is alert and oriented x 3 in no distress, he denies any complaints there is no fever or chills no headache or dizziness no chest pain no shortness of breath no palpitation no nausea or vomiting no abdominal pain no diarrhea no blood in the stools no burning with urination no frequency or urgency and no hematuria, there is no weakness or numbness in any of the extremities no change in vision speech or gait. He is still complaining of cough, will add Mucinex and try to obtain a sputum sample for culture. On 02/20/2021 Patient was seen and examined on the medical floor, he is alert and oriented x 3 in no distress, he denies any complaints there is no fever or chills no headache or dizziness no chest pain no shortness of breath no palpitation no cough no nausea or vomiting no abdominal pain no diarrhea no blood in the stools no burning with urination no frequency or urgency and no hematuria, there is no weakness or numbness in any of the extremities no change in vision speech or gait. Vital exam reveals a temperature of 97.9 pulse 1 or 2 respiration 20 lungs pressure 130/88 pulse ox 89% on 15 L high flow cannula. White blood count is 9.3 hemoglobin 12.9 platelet count 207 sodium 139 potassium 3.7 chloride 102 CO2 27 BUN 66 creatinine 1.75 On 02/21/2021 patient is alert and oriented 3 currently eating lunch. Patient denies chest pain or shortness breath. Patient denies nausea vomiting or diarrhea. Patient denies any urinary burning or frequency. Patient remains on 15 L high flow BiPAP at rest. Bun 66 creatinine 2.00. Pulmonary cardiology and nephrology services are following On 02/22/2021 patient was seen and examined on the medical floor he is alert and oriented 3 in no apparent distress he is still complaining of cough and shortness of breath otherwise he denies any complaints there is no fever or chills no headache or dizziness step pain no palpitation no nausea or vomiting no abdominal pain no diarrhea no blood in the stools no burning with urination no frequency or urgency and no hematuria patient is still requiring BiPAP On 02/24/2021 patient was seen and examined on the medical floor he is alert and oriented 3 in no distress, he is maintained on oxygen via nasal cannula and is tolerating well he is using BiPAP at night there is no fever or chills no headache or dizziness no chest pain no shortness of breath at rest no cough no nausea or vomiting no abdominal pain no diarrhea no blood in the stools no burning with urination no frequency or urgency and no hematuria On 02/25/2021 patient was seen and examined on the telemetry floor he is alert and oriented 3 in no distress currently he is maintained on BiPAP there is no fever or chills no headache or dizziness no chest pain no shortness of breath no cough no nausea or vomiting no abdominal pain no diarrhea no blood in the stools no burning with urination no frequency or urgency and no hematuria On 02/26/2021 patient was seen and examined on the telemetry floor he is alert and oriented, he is maintained on BiPAP he has worsening shortness of breath today. there is no fever or chills no headache or dizziness no chest pain no shortness of breath no cough no nausea or vomiting no abdominal pain no diarrhea no blood in the stools no burning with urination no frequency or urgency and no hematuria. will repeat CXR today. On 02/27/2021 patient was seen and examined on the medical floor he is alert and oriented 3 in no apparent distress he is still complaining of shortness of breath however he feels better than yesterday otherwise he denies any complaints at this time, repeat chest x-ray done yesterday did not reveal any significant change from prior, at this time I would ask pulmonary to reevaluate him again, patient received IV antibiotic for 14 days, I would discontinue IV antibiotic and start Omnicef orally, will follow closely possible discharge soon if stable. On 02/28/2021 patient's alert and oriented 3. Patient reports that he is feeling better. High flow decreased to 5 L. Pulmonary services reconsulted. Patient maintained on IV Lasix. Antibiotics adjusted to Omnicef. Patient will likely need home O2 upon discharge. Patient is improving progressing slowly. Discharge planning in place. Patient denies any chest pain. Patient denies nausea vomiting or diarrhea. Patient denies any urinary burning or frequency On 03/01/2021 patient was seen and examined on the medical floor due to lack of improvement over the last several days I have requested reevaluation by pulmonary, computed tomography scan of the chest without contrast was ordered and patient will be evaluated by Dr. Medina today, patient is still complaining of cough and shortness of breath and generalized weakness otherwise he denies any complaints there is no fever or chills no headache or dizziness no chest pain no nausea or vomiting no abdominal pain no diarrhea no blood in the stools no burning with urination no frequency or urgency and no hematuria On 03/02/2021 patient is currently resting comfortably in bed. Patient was reevaluated by pulmonary service remains on Lasix and Omnicef. CT of chest was performed showing bilateral lower lobe pulmonary infiltrates and atelectasis also likely related to bronchopneumonia cardiomegaly with pleural effusions. Congestive heart failure is possible. pleural fluid and pulmonary infiltrates patient is currently resting comfortably on 5 L and BiPAP at rest. patient den ies chest pain. Patient denies nausea vomiting or diarrhea. Patient denies any urinary burning or frequency On 03/03/2021 patient's alert and oriented currently sitting up comfortably in bed. Patient reports that he feels the best he has today since hospitalization. Patient remains on 5 L but discussed with nursing staff to attempt to wean oxygen down. Patient remains on IV Lasix and Omnicef. Patient denies chest pain. Patient denies nausea vomiting or diarrhea. Patient denies any urinary burning or frequency. On 03/04/2021 patient was seen and examined on the medical floor he is alert and oriented 3 in no apparent distress he is still complaining of cough and shortness of breath with activity otherwise he denies any complaints there is no fever or chills no headache or dizziness no chest pain no nausea or vomiting no abdominal pain no diarrhea and no urinary symptoms. Currently he is maintained on oxygen 2 L via nasal cannula, patient has improved significantly in the last few days possible discharge to home tomorrow with oxygen Objective - Vital Signs Vital signs: Vital Signs Temp 97.9 F 03/04/21 04:00 Pulse 64 03/04/21 08:15 Resp 17 03/04/21 08:15 BP 105/59 03/04/21 08:15 Pulse Ox 95 03/04/21 08:15 Intake & Output 03/03/21 03/04/21 03/04/21 18:59 06:59 18:59 Intake Total 710 14 480 Output Total 3050 2200 200 Balance -2340 -2186 280 Weight 106.5 kg Intake: IV 14 Invasive Line 4 14 Oral 710 480 Output: Gastric Drainage 300 Urine 2000 1650 200 Stool 450 250 Urine/Stool Mix 600 Other: Voiding Method Urinal # Voids 1 - Exam In general patient is alert and oriented 3 in no apparent distress HEENT head normocephalic and atraumatic Neck is supple no JVD no goiter no lymphadenopathy Chest exam reveals crackles in both lung zhang no wheezing Cardiac exam reveals irregular heart sounds with tachycardia no murmurs Abdomen is soft nontender no organomegaly with normal bowel sounds Extremity exam reveals 1+ edema, there is a large scabbed ulcer on the left pretibial area with mild surrounding erythema Neurological examination reveals no gross focal deficit - Labs CBC & Chem 7: 03/04/21 06:53 03/04/21 06:53 Labs: Abnormal Lab Results - Last 24 Hours (Table) 03/03/21 03/03/21 03/03/21 Range/Units 11:45 16:40 20:03 RBC (4.30-5.90) m/uL Hgb (13.0-17.5) gm/dL Hct (39.0-53.0) % Potassium (3.5-5.1) mmol/L Chloride (98-107) mmol/L Carbon Dioxide (22-30) mmol/L BUN (9-20) mg/dL Creatinine (0.66-1.25) mg/dL Glucose (74-99) mg/dL POC Glucose (mg/dL) 147 H 166 H 183 H (75-99) mg/dL Magnesium (1.6-2.3) mg/dL Total Protein (6.3-8.2) g/dL Albumin (3.5-5.0) g/dL 03/04/21 03/04/21 03/04/21 Range/Units 06:18 06:53 06:53 RBC 4.21 L (4.30-5.90) m/uL Hgb 12.0 L (13.0-17.5) gm/dL Hct 36.1 L (39.0-53.0) % Potassium 3.0 L (3.5-5.1) mmol/L Chloride 88 L (98-107) mmol/L Carbon Dioxide 37 H (22-30) mmol/L BUN 61 H (9-20) mg/dL Creatinine 2.09 H (0.66-1.25) mg/dL Glucose 71 L (74-99) mg/dL POC Glucose (mg/dL) 71 L (75-99) mg/dL Magnesium 1.1 L (1.6-2.3) mg/dL Total Protein 5.8 L (6.3-8.2) g/dL Albumin 2.9 L (3.5-5.0) g/dL Assessment and Plan Plan: Acute pneumonia patient was started on IV Rocephin and IV Zithromax. Pulmonary services are following antibiotic adjusted to Omnicef. Pulmonary services reconsulted Atrial fibrillation with rapid ventricular response. Patient remains on eliquis for anticoagulation. Senia Raygoza. Cardiology services are following Acute congestive heart failure exacerbation with check echocardiogram cardiology consultation requested. Patient remains on IV Lasix. Underlying history of hypertension Underlying history of COPD Underlying history of coronary artery disease Underlying history of hyperlipidemia Underlying history of gout Acute kidney injury. Creatinine up to 3.16. Nephrology services are consulted. Ultrasound of kidneys completed showing findings suggestive of medical renal disease. DVT prophylaxis eliquis. GI prophylaxis Protonix Cardiology, pulmonary and nephrology services are following
[2021-03-04 16:53] LABS: Glucose,Whole Blood 193 mg/dL (75-99)
[2021-03-04 20:26] LABS: Glucose,Whole Blood 333 mg/dL (75-99)
[2021-03-04] MEDS: INSULIN DETEMIR (LEVEMIR) 100 UNIT/ML SYR SQ SCH (21:11)
[2021-03-04] MEDS: LATANOPROST 0.005% OPHTH DROPS 2.5 ML BTL BOTH EYES SCH (21:11)
[2021-03-04] MEDS: CYCLOBENZAPRINE 10 MG TAB PO PRN (23:20)
[2021-03-05 06:37] LABS: Glucose,Whole Blood 107 mg/dL (75-99)
[2021-03-05] MEDS: INSULIN ASPART (NovoLOG) 100 UNIT/ML VIAL SQ SCH ×5 (06:38→21:15)
[2021-03-05] MEDS: PANTOPRAZOLE 40 MG TABLET PO SCH (06:51)
[2021-03-05 07:29] LABS: Basophils # (A) 0.1 k/uL (0-0.2); Basophils % (A) 1 %; Eosinophils # (A) 0.3 k/uL (0-0.7); Eosinophils % (A) 5 %; HCT 35.5 % (39.0-53.0); HGB 11.7 gm/dL (13.0-17.5); Lymphocytes # (A) 1.2 k/uL (1.0-4.8); Lymphocytes % (A) 18 %; MCH 28.2 pg (25.0-35.0); MCV 85.4 fL (80.0-100.0); Mean Platelet Volume 7.5; Monocytes # (A) 0.6 k/uL (0-1.0); Monocytes % (A) 9 %; Neutrophils # (A) 4.5 k/uL (1.3-7.7); Neutrophils % (A) 66 %; Platelet Count 297 k/uL (150-450); RBC 4.15 m/uL (4.30-5.90); RDW 14.9 % (11.5-15.5); WBC 6.9 k/uL (3.8-10.6)
[2021-03-05 07:45] LABS: Albumin 2.9 g/dL (3.5-5.0); Calcium 8.8 mg/dL (8.4-10.2); Magnesium 1.8 mg/dL (1.6-2.3); Potassium 3.2 mmol/L (3.5-5.1); Total Bilirubin 0.6 mg/dL (0.2-1.3); Total Protein 5.6 g/dL (6.3-8.2)
[2021-03-05] MEDS ORDERED: Potassium Replacement Protocol 1 EACH MISC MISCELLANE PRN ×2 (08:05→15:06)
--- NOTE | 2021-03-05 08:37 | XR ---
EXAMINATION TYPE: XR chest 1V portable DATE OF EXAM: 03/05/2021 COMPARISON: Chest x-ray 03/01/2021 HISTORY: Congestive heart failure TECHNIQUE: Single frontal view of the chest is obtained. FINDINGS: Patient is post median sternotomy. Cardiac mediastinal silhouette is mildly prominent poss ibly due to technique. Is no evident pneumothorax. There are overlying artifacts. No sizable effusion . Patchy basilar density is noted, interstitium is increased. Interval improvement in visualization o f right hemidiaphragm. IMPRESSION: Improvement in patient's volume status, aeration within the lungs.
[2021-03-05] MEDS: FENOFIBRATE 160 MG TAB PO SCH (09:56)
[2021-03-05] MEDS: ATORVASTATIN 10 MG TAB PO SCH (09:56)
[2021-03-05] MEDS: APIXABAN 5 MG TAB PO SCH ×2 (09:56→21:14)
[2021-03-05] MEDS: guaiFENesin 600 MG TABLET.ER PO SCH ×2 (09:56→21:14)
[2021-03-05] MEDS: DILTIAZEM ORAL 30 MG TAB PO SCH ×3 (09:56→21:14)
[2021-03-05] MEDS: CEFDINIR 300 MG CAP PO SCH (09:56)
[2021-03-05] MEDS: METOPROLOL SUCCINATE (ER) 50 MG TAB.ER.24H PO SCH ×2 (09:56→21:14)
[2021-03-05] MEDS: POTASSIUM CHLORIDE ER 20 MEQ TAB.ER PO SCH ×4 (09:57→17:17)
[2021-03-05] MEDS: FUROSEMIDE 10 MG/ML 4 ML VIAL IV SCH ×2 (09:57→21:14)
[2021-03-05] MEDS: MAGNESIUM OXIDE 400 MG TAB PO SCH ×2 (09:57→21:14)
[2021-03-05] MEDS: metOLazone 5 MG TAB PO SCH (09:58)
[2021-03-05] MEDS: HYDROcodone/APAP 10-325MG 1 EACH TAB PO PRN ×2 (09:59→23:15)
[2021-03-05] MEDS: FEBUXOSTAT 80 MG PO SCH (10:05)
[2021-03-05] MEDS ORDERED: POTASSIUM CHLORIDE ER 20 MEQ TAB.ER PO STA (11:20)
--- NOTE | 2021-03-05 11:55 | P.PN ---
Subjective Patient is seen in follow-up for acute kidney injury and chronic kidney disease. Patient has chronic kidney disease stage IIIB with baseline creatinine near 2. Renal function a little worse today. Maintained IV Lasix. Good urine output. Blood pressure stable. Resting in bed. On BiPAP. Oral intake has been good. Vital signs are stable. General: The patient appeared well nourished and normally developed. HEENT: On BiPAP. LUNGS: Breath sounds decreased. HEART: Rate and Rhythm are regular. ABDOMEN: Soft, nontender. EXTREMITITES: Trace edema. Objective - Vital Signs Vital signs: Vital Signs Temp 98.5 F 03/05/21 08:00 Pulse 89 03/05/21 08:00 Resp 18 03/05/21 08:00 BP 106/67 03/05/21 08:00 Pulse Ox 91 L 03/05/21 10:09 Intake & Output 03/04/21 03/05/21 03/05/21 18:59 06:59 18:59 Intake Total 960 358 Output Total 775 1850 Balance 185 -1850 358 Weight 65.2 kg Intake: Oral 960 358 Output: Urine 775 1300 Stool 550 Other: Voiding Method Urinal # Bowel Movements 50 - Labs CBC & Chem 7: 03/05/21 06:41 03/05/21 06:41 Labs: Abnormal Lab Results - Last 24 Hours (Table) 03/04/21 03/04/21 03/04/21 Range/Units 12:00 16:51 20:14 RBC (4.30-5.90) m/uL Hgb (13.0-17.5) gm/dL Hct (39.0-53.0) % Sodium (137-145) mmol/L Potassium (3.5-5.1) mmol/L Chloride (98-107) mmol/L Carbon Dioxide (22-30) mmol/L BUN (9-20) mg/dL Creatinine (0.66-1.25) mg/dL POC Glucose (mg/dL) 126 H 193 H 333 H (75-99) mg/dL Total Protein (6.3-8.2) g/dL Albumin (3.5-5.0) g/dL 03/05/21 03/05/21 03/05/21 Range/Units 06:36 06:41 06:41 RBC 4.15 L (4.30-5.90) m/uL Hgb 11.7 L (13.0-17.5) gm/dL Hct 35.5 L (39.0-53.0) % Sodium 135 L (137-145) mmol/L Potassium 3.2 L (3.5-5.1) mmol/L Chloride 88 L (98-107) mmol/L Carbon Dioxide 36 H (22-30) mmol/L BUN 63 H (9-20) mg/dL Creatinine 2.30 H (0.66-1.25) mg/dL POC Glucose (mg/dL) 107 H (75-99) mg/dL Total Protein 5.6 L (6.3-8.2) g/dL Albumin 2.9 L (3.5-5.0) g/dL Assessment and Plan Plan: Assessment: 1. Acute kidney injury mostly prerenal secondary to cardiorenal syndrome. Renal function a little worse from diuresis. Creatinine 2.3 today. No hydronephrosis on kidney ultrasound. 2. Chronic kidney disease stage IIIB with baseline creatinine near 2 secondary to diabetic kidney disease and cardiorenal syndrome. 3. Acute on chronic diastolic CHF with moderate to severe tricuspid regurgitation, moderate mitral regurgitation. 4. Severe pulmonary hypertension. 5. Hypokalemia from diuresis and hypomagnesemia. 6. Hypomagnesemia from diuresis. Replace. Better. Plan: Maintain IV Lasix - will change to oral Lasix 60 mg twice daily likely tomorrow. Maintain metolazone. Potassium being replaced. Avoid nephrotoxins. Continue to monitor renal function and urine output. Repeat electrolytes in the morning. Will need BMP and magnesium level checked 2-3 days postdischarge. Follow up outpatient in 1 week.
[2021-03-05 12:12] LABS: Glucose,Whole Blood 128 mg/dL (75-99)
[2021-03-05 14:40] VITALS: BMI 23.1
[2021-03-05 17:08] LABS: Glucose,Whole Blood 254 mg/dL (75-99)
--- NOTE | 2021-03-05 18:26 | P.PN ---
Subjective Progress Note Date: 03/05/21 Principal diagnosis: Acute hypoxic respiratory failure secondary to acute community-acquired right lower lobe pneumonia and underlying COPD with acute exacerbation. 70-year-old male, seen by Dr. Medina and our office on February 12. The patient was very short of breath at that time, and quite hypoxemic, and he was sent to the emergency department for further evaluation. Currently, he is on nasal cannula at 6 L/m, saline at 20 mL an hour, and a Cardizem drip at 15 mg an hour. The patient apparently complained in the ER, that he is having difficulty breathing for several months prior to admission. Over the last few days, she got worse. He denied any chest pain or fever. He did have some lower extremity edema. He has a history of angina, CVA, diabetes, hyperlipidemia, hypertension, myocardial infarction, sleep apnea syndrome, hypothyroidism, aortic stenosis, status post aortic valve replacement, and bowel resection for colon cancer. White count 9.6, he will 14.1, hematocrit 43.4, and platelet count 291,000. PT 12.5 INR 1.2. Sodium 138, potassium 4.3, chlorides 105, CO2 21, anion gap 12, BUN 58, creatinine 2.39. Troponin was 0.049, and N-terminal proBNP was 5770. Chest x-ray was consistent with right lower lobe infiltrate/pneumonia. Patient was reevaluated today on 02/14/2021, patient is feeling better today compared to how he felt yesterday. Remains on antibiotics, bronchodilators, and he remains on bronchodilators, patient was earlier on nasal cannula, however later this afternoon he was transitioned to BiPAP because of low O2 saturations. Placed on BiPAP, his O2 saturation went up to 95%, presently on 50% 10/01. His electrodes are normal renal profile is poor with BUN of 70 creatinine 3.18. WBC count is 10.1 hemoglobin is 15.7. Patient had negative coronarvirus PCR. BNP was elevated at 5770, considering his cardiac history the patient may have a component of congestive heart failure, however chest x-ray is mostly suggestive of right lower lobe pneumonia and possibly some pleural effusion/small. Agent was seen by cardiology, and it was felt that the patient may have acute on chronic diastolic congestive heart failure and he had a troponin leak related to his renal functioning. Patient does have history of valvular heart disease and he is status post aortic valve replacement in 2015. Patient is also known to have history of severe pulmonary hypertension with right-sided pressures of 76 Patient was reevaluated today on 02/15/2021, patient is feeling better, breathing a bit easier, remains on antibiotics, bronchodilators, and diuretics. Today I even increased the dose of his diuretics, patient is on 10 L high flow nasal cannula, yesterday he was on BiPAP. Patient tells me that his feeling much better. However on physical examination continues to have significant crackles bilaterally. His BNP level was elevated, hence I recommended that we continue diuretics, and the dose was increased. Patient remains on Eliquis, remains on Zithromax and Rocephin, is also on diltiazem. I increased the dose of Lasix to 40 mg IV push twice a day. He is on 10 L high flow cannula. Patient was reevaluated today on 02/16/2021, he is basically the same today as he was yesterday, get short of breath with activity. He feels intermittently congested. Remains on antibiotics, bronchodilators and diuretics. When I saw the patient today he was on BiPAP, with IPAP of 12 EPAP of 6, he normally wears CPAP at home, and his FiO2 was 50%. Patient is saturating in the low 90s, 94%, he is hemodynamically stable, he is afebrile. Her on physical examination continues to have significant crackles and rhonchi bilaterally, will recommend follow-up chest x-ray on this patient tomorrow. Renal profile seems to be improving in spite of diuretics, creatinine is 2.4. Patient was reevaluated today on 02/17/2021, patient is feeling better, breathing easier, chest x-ray is looking a lot better. Patient remains on bronchodilators, antibiotics, and diuretics, chest x-ray is significantly improved. Clinically the patient is feeling better. However he remains on 10 L high flow cannula, O2 sats is 92%. Blood pressure is 115/58. Patient is afebrile. CBC is relatively normal, electrolytes are normal BUN is 62 creatinine 2.12, steadily improving since admission patient had a creatinine as high as 3.18 a few days ago. Remains on Lasix at 40 mg IV push every 12 hours. Remains empirically on antibiotics and on bronchodilators Reevaluated today on 02/18/2021, patient is feeling much better from the pulmonary perspective. He has issues today with his colostomy bag, apparently it ruptured, and the nurses are helping him with his colostomy bag cleaning. At any rate pulmonary-jeong he is still on 10 L high flow he is saturating in the mid 90s. Patient is responding well to diuretics, bronchodilators, and he is also on antibiotics. Remains on Lasix at 40 mg IV push twice a day. Follow-up Chest x-ray showed significant improvement compared to his admission chest x- ray. CBC is relatively normal left lites are normal BUN is 62 creatinine 2.0, steadily improving from 3.18 only a few days ago. In spite of diuretics 03/03/2021, the patient states that this is the best she has felt since he came into the hospital. He is currently on oxygen at 4 L and pulse ox is around 93%. He remains on IV Lasix. He is diuresing well and he remains in a negative fluid balance of 2.5 L over the past 24 hours. No chest pain. No shortness of breath. There is improvement in swelling in lower extremities bilaterally. Also, the patient has a stable renal function with a creatinine of 2 and a BUN of 61. Potassium is being replaced and his potassium level is at 3.0. No fever. No chills. Pro-calcitonin level was low at 0.15 03/04/2021, clinically improved and the patient is being checked on oxygen as his oxidation is improved considerably. He is still diuresing excellent with IV Lasix and the patient is a negative fluid balance of 4.5 L over the past 24 hours. Remains on Lasix 40 mg every 12 hours. He was already weaned down to 3 L of oxygen by nasal cannula. He is utilizing the BiPAP overnight. No chest pain. No nausea. No vomiting. No diarrhea. No abdominal pain. The white cell count is at 6.8. The patient's BUN is at 61 with a creatinine of 2.09. Potassium level is at 3.0 and needs to be replaced. Alert and oriented. No altered mentation. No other issues otherwise for now. Patient was reevaluated today on 03/05/2021, patient is sitting in bed, very comfortable, he is on 2 L nasal cannula, and his O2 saturations 98%. Remains on diuretics, remains on bronchodilators and he is now on oral antibiotics in the form of Omnicef which could be discontinued, patient had more than his share of antibiotics since admission. Not to mention that his pro-calcitonin was low at 0.15 clinically the patient is doing well, and I will go ahead and clear for discharge planning if cleared by other consultants. CBC is relatively normal electrolytes are relatively normal BUN is 63 creatinine is 2.30, and that being addressed by nephrology on the case. Chest x-ray today showed significant imp rovement in the patient's volume status. Patchy basilar density is noted at the right base. Objective - Vital Signs Vital signs: Vital Signs Temp 97.7 F 03/05/21 15:28 Pulse 72 03/05/21 15:28 Resp 18 03/05/21 15:28 BP 102/60 03/05/21 15:28 Pulse Ox 98 03/05/21 15:28 Intake & Output 03/04/21 03/05/21 03/05/21 18:59 06:59 18:59 Intake Total 960 818 Output Total 775 1850 1060 Balance 185 -1850 -242 Weight 65.2 kg 65.2 kg Intake: Oral 960 818 Output: Urine 775 1300 550 Stool 550 510 Other: Voiding Method Urinal # Bowel Movements 50 - Exam Physical Exam revealed 70-year-old white male in no distress. On 2 L nasal cannula Head: Atraumatic, normocephalic. HEENT:[Neck is supple.] [No neck masses.] [No thyromegaly.] [No JVD.] Chest: [Symmetrical chest expansion, records persist bilaterally and rhonchi persists. Cardiac Exam: [Irregular rhythm. Normal S1 and S2, no S3 gallop, 2/6 systolic murmur thought the precordium. Abdomen: [Soft, nontender, no megaly, no rebound, no guarding, normal bowel sounds.] Colostomy bag is noted. Extremities: [No clubbing, no edema, no cyanosis.] Good pulses bilaterally. Neurological Exam: [No focal neurologic deficit.] Alert and oriented 3. Psychiatric: Normal mood, affect and normal mental status examination. Extremities: 1+ bipedal edema no tenderness. Musculoskeletal: No deformities noted limitation in range of motion. - Labs CBC & Chem 7: 03/05/21 06:41 05/10/21 13:37 Labs: Abnormal Lab Results - Last 24 Hours (Table) 03/04/21 03/05/21 03/05/21 Range/Units 20:14 06:36 06:41 RBC 4.15 L (4.30-5.90) m/uL Hgb 11.7 L (13.0-17.5) gm/dL Hct 35.5 L (39.0-53.0) % Sodium (137-145) mmol/L Potassium (3.5-5.1) mmol/L Chloride (98-107) mmol/L Carbon Dioxide (22-30) mmol/L BUN (9-20) mg/dL Creatinine (0.66-1.25) mg/dL POC Glucose (mg/dL) 333 H 107 H (75-99) mg/dL Total Protein (6.3-8.2) g/dL Albumin (3.5-5.0) g/dL 03/05/21 03/05/21 03/05/21 Range/Units 06:41 12:11 13:37 RBC (4.30-5.90) m/uL Hgb (13.0-17.5) gm/dL Hct (39.0-53.0) % Sodium 135 L (137-145) mmol/L Potassium 3.2 L 3.4 L (3.5-5.1) mmol/L Chloride 88 L (98-107) mmol/L Carbon Dioxide 36 H (22-30) mmol/L BUN 63 H (9-20) mg/dL Creatinine 2.30 H (0.66-1.25) mg/dL POC Glucose (mg/dL) 128 H (75-99) mg/dL Total Protein 5.6 L (6.3-8.2) g/dL Albumin 2.9 L (3.5-5.0) g/dL 03/05/21 Range/Units 17:01 RBC (4.30-5.90) m/uL Hgb (13.0-17.5) gm/dL Hct (39.0-53.0) % Sodium (137-145) mmol/L Potassium (3.5-5.1) mmol/L Chloride (98-107) mmol/L Carbon Dioxide (22-30) mmol/L BUN (9-20) mg/dL Creatinine (0.66-1.25) mg/dL POC Glucose (mg/dL) 254 H (75-99) mg/dL Total Protein (6.3-8.2) g/dL Albumin (3.5-5.0) g/dL Assessment and Plan Assessment: Impression: Acute on chronic hypoxic respiratory failure secondary to right lower lobe pneumonia/community-acquired. And suspect acute on chronic diastolic congestive heart failure. Suspect acute on chronic diastolic congestive heart failure. History of underlying COPD with mild exacerbation. Resolved. Valvular heart disease and previous aortic valve replacement in 2015. Chronic kidney disease. Severe pulmonary hypertension. Type 2 diabetes. Dyslipidemia. Benign essential hypertension. Chronic cor pulmonale. History of obstructive sleep apnea syndrome uses CPAP. History of bowel resection for cancer. And previous ileostomy. History of CVA. New onset Atrial fibrillation with RVR could be treated by his underlying pneumonia, could also be paroxysmal atrial fibrillation. Recommendation: Reviewed chest x-ray, showing improvement based on chest x-ray today. Continue Lasix discontinue antibiotics. Continue present supportive care measures. Continue oxygen. Significant titration has been noted since admission. Continue bronchodilators. Continue GI prophylaxis. Continue Eliquis. Use BiPAP as needed. We will clear the patient for discharge on home oxygen if cleared by other consultants. We will sign off and see the patient on when necessary basis. Time with Patient: Less than 30
--- NOTE | 2021-03-05 19:14 | P.PN ---
Subjective Progress Note Date: 03/05/21 Faisal Andrade, is a 70-year-old male who presented to [facility] emergency room with a chief complaint of worsening shortness of breath over several weeks and cough and chest congestion, he was evaluated in the emergency room vital examination on presentation revealed a temperature of 96.7 also 130 respiration 26 blood pressure 142/87 pulse ox 96% on 3 L nasal cannula white blood count was 9.6 hemoglobin 14.1 platelet count 291 sodium 140 potassium 4.7 chloride 110 CO2 20 BUN 58 creatinine 2.4 troponin level was 0.044 BNP was elevated at 5717 Gu virus PCR was negative. Chest x-ray done in the emergency room revealed right lower lobe infiltrate suggestive of pneumonia, EKG revealed evidence of atrial fibrillation with rapid ventricular response. Patient was admitted to telemetry floor, he was started on IV antibiotics ceftriaxone and Zithromax, he was started on Cardizem drip, and IV Lasix, cardiology consultation and pulmonary consultation were requested. On 02/13/2021 patient was seen and examined on the medical floor, he is alert and oriented 3 in no apparent distress he is still complaining of shortness of breath however he noticed some improvement since yesterday he also had some occasional cough otherwise he denies any complaints there is no fever or chills no headache or dizziness no chest pain no nausea or vomiting no abdominal pain no diarrhea no blood in the stools no burning with urination no frequency or urgency and no hematuria he is maintained on IV Lasix his creatinine is going up chronic kidney disease will add a consult for nephrology at this time On 02/14/2021 patient currently resting on BiPAP. Patient does wake up quickly falls back to sleep. Per nursing staff patient remained short of breath with minimal activity. Patient remains on IV Lasix. IV Lasix have been decreased to 2 acute kidney injury. Cardiology, pulmonary and nephrology services are following. Ultrasound kidneys has been ordered per nephrology. At this time patient denies nausea vomiting or diarrhea. Patient denies any urinary burning or frequency On 02/15/2021 patient currently resting on BiPAP. Patient does wake up quickly falls back to sleep. Per nursing staff patient remained short of breath with minimal activity. he is still complaining of shortness of breath however he noticed some improvement since yesterday he also had some occasional cough otherwise he denies any complaints there is no fever or chills no headache or dizziness no chest pain no nausea or vomiting no abdominal pain no diarrhea no blood in the stools no burning with urination no frequency or urgency and no hematuria he is maintained on IV Lasix his creatinine is going up chronic kidney disease will add a consult for nephrology at this time. Patient remains on IV La six. IV Lasix have been decreased to 2 acute kidney injury. Cardiology, pulmonary and nephrology services are following. Ultrasound kidneys has been ordered per nephrology. At this time patient denies nausea vomiting or diarrhea. Patient denies any urinary burning or frequency On 02/16/2021 patient currently resting on BiPAP. Patient does wake up was able to keep breakfast. Patient maintained on IV Lasix 40 mg twice a day. Ultrasound of kidneys completed showing findings suggestive of medical renal disease. Repeat labs have been ordered. Patient denies chest pain. Patient denies nausea vomiting or diarrhea. Patient denies any urinary burning or frequency. Cardiology, pulmonary and nephrology services are following On 02/17/2021 patient's alert and oriented 3. Patient currently resting on BiPAP. Patient reports he is starting to feel better. Creatinine and bun trending down. Patient does report some shortness breath but does state this is improved. Patient denies chest pain. Patient denies nausea vomiting or diarrhea. Patient denies any urinary burning or frequency. Patient remains on azithromycin and Rocephin for IV antibiotics. IV Lasix 40 mg every 12 hours. Cardiology, pulmonary and nephrology following On 02/18/2021 patient was seen and examined on the medical floor he is alert and oriented 3 in no apparent distress he is still complaining of cough and shortness of breath otherwise he denies any complaints there is no fever or chills no headache or dizziness step pain no palpitation no nausea or vomiting no abdominal pain no diarrhea no blood in the stools no burning with urination no frequency or urgency and no hip On 02/19/2021 Patient was seen and examined on the medical floor, he is alert and oriented x 3 in no distress, he denies any complaints there is no fever or chills no headache or dizziness no chest pain no shortness of breath no palpitation no nausea or vomiting no abdominal pain no diarrhea no blood in the stools no burning with urination no frequency or urgency and no hematuria, there is no weakness or numbness in any of the extremities no change in vision speech or gait. He is still complaining of cough, will add Mucinex and try to obtain a sputum sample for culture. On 02/20/2021 Patient was seen and examined on the medical floor, he is alert and oriented x 3 in no distress, he denies any complaints there is no fever or chills no headache or dizziness no chest pain no shortness of breath no palpitation no cough no nausea or vomiting no abdominal pain no diarrhea no blood in the stools no burning with urination no frequency or urgency and no hematuria, there is no weakness or numbness in any of the extremities no change in vision speech or gait. Vital exam reveals a temperature of 97.9 pulse 1 or 2 respiration 20 lungs pressure 130/88 pulse ox 89% on 15 L high flow cannula. White blood count is 9.3 hemoglobin 12.9 platelet count 207 sodium 139 potassium 3.7 chloride 102 CO2 27 BUN 66 creatinine 1.75 On 02/21/2021 patient is alert and oriented 3 currently eating lunch. Patient denies chest pain or shortness breath. Patient denies nausea vomiting or diarrhea. Patient denies any urinary burning or frequency. Patient remains on 15 L high flow BiPAP at rest. Bun 66 creatinine 2.00. Pulmonary cardiology and nephrology services are following On 02/22/2021 patient was seen and examined on the medical floor he is alert and oriented 3 in no apparent distress he is still complaining of cough and shortness of breath otherwise he denies any complaints there is no fever or chills no headache or dizziness step pain no palpitation no nausea or vomiting no abdominal pain no diarrhea no blood in the stools no burning with urination no frequency or urgency and no hematuria patient is still requiring BiPAP On 02/24/2021 patient was seen and examined on the medical floor he is alert and oriented 3 in no distress, he is maintained on oxygen via nasal cannula and is tolerating well he is using BiPAP at night there is no fever or chills no headache or dizziness no chest pain no shortness of breath at rest no cough no nausea or vomiting no abdominal pain no diarrhea no blood in the stools no burning with urination no frequency or urgency and no hematuria On 02/25/2021 patient was seen and examined on the telemetry floor he is alert and oriented 3 in no distress currently he is maintained on BiPAP there is no fever or chills no headache or dizziness no chest pain no shortness of breath no cough no nausea or vomiting no abdominal pain no diarrhea no blood in the stools no burning with urination no frequency or urgency and no hematuria On 02/26/2021 patient was seen and examined on the telemetry floor he is alert and oriented, he is maintained on BiPAP he has worsening shortness of breath today. there is no fever or chills no headache or dizziness no chest pain no shortness of breath no cough no nausea or vomiting no abdominal pain no diarrhea no blood in the stools no burning with urination no frequency or urgency and no hematuria. will repeat CXR today. On 02/27/2021 patient was seen and examined on the medical floor he is alert and oriented 3 in no apparent distress he is still complaining of shortness of breath however he feels better than yesterday otherwise he denies any complaints at this time, repeat chest x-ray done yesterday did not reveal any significant change from prior, at this time I would ask pulmonary to reevaluate him again, patient received IV antibiotic for 14 days, I would discontinue IV antibiotic and start Omnicef orally, will follow closely possible discharge soon if stable. On 02/28/2021 patient's alert and oriented 3. Patient reports that he is feeling better. High flow decreased to 5 L. Pulmonary services reconsulted. Patient maintained on IV Lasix. Antibiotics adjusted to Omnicef. Patient will likely need home O2 upon discharge. Patient is improving progressing slowly. Discharge planning in place. Patient denies any chest pain. Patient denies nausea vomiting or diarrhea. Patient denies any urinary burning or frequency On 03/01/2021 patient was seen and examined on the medical floor due to lack of improvement over the last several days I have requested reevaluation by pulmonary, computed tomography scan of the chest without contrast was ordered and patient will be evaluated by Dr. Medina today, patient is still complaining of cough and shortness of breath and generalized weakness otherwise he denies any complaints there is no fever or chills no headache or dizziness no chest pain no nausea or vomiting no abdominal pain no diarrhea no blood in the stools no burning with urination no frequency or urgency and no hematuria On 03/02/2021 patient is currently resting comfortably in bed. Patient was reevaluated by pulmonary service remains on Lasix and Omnicef. CT of chest was performed showing bilateral lower lobe pulmonary infiltrates and atelectasis also likely related to bronchopneumonia cardiomegaly with pleural effusions. Congestive heart failure is possible. pleural fluid and pulmonary infiltrates patient is currently resting comfortably on 5 L and BiPAP at rest. patient den ies chest pain. Patient denies nausea vomiting or diarrhea. Patient denies any urinary burning or frequency On 03/03/2021 patient's alert and oriented currently sitting up comfortably in bed. Patient reports that he feels the best he has today since hospitalization. Patient remains on 5 L but discussed with nursing staff to attempt to wean oxygen down. Patient remains on IV Lasix and Omnicef. Patient denies chest pain. Patient denies nausea vomiting or diarrhea. Patient denies any urinary burning or frequency. On 03/04/2021 patient was seen and examined on the medical floor he is alert and oriented 3 in no apparent distress he is still complaining of cough and shortness of breath with activity otherwise he denies any complaints there is no fever or chills no headache or dizziness no chest pain no nausea or vomiting no abdominal pain no diarrhea and no urinary symptoms. Currently he is maintained on oxygen 2 L via nasal cannula, patient has improved significantly in the last few days possible discharge to home tomorrow with oxygen On 03/05/2021 Patient was seen and examined on the medical floor, he is alert and oriented x 3 in no distress, he denies any complaints there is no fever or chills no headache or dizziness no chest pain, shortness of breath is improving , no palpitation no cough no nausea or vomiting no abdominal pain no diarrhea no blood in the stools no burning with urination no frequency or urgency and no hematuria, there is no weakness or numbness in any of the extremities no change in vision speech or gait. Objective - Vital Signs Vital signs: Vital Signs Temp 97.7 F 03/05/21 15:28 Pulse 72 03/05/21 15:28 Resp 18 03/05/21 15:28 BP 102/60 03/05/21 15:28 Pulse Ox 98 03/05/21 15:28 Intake & Output 03/04/21 03/05/21 03/05/21 18:59 06:59 18:59 Intake Total 960 818 Output Total 775 1850 1060 Balance 185 -1850 -242 Weight 65.2 kg 65.2 kg Intake: Oral 960 818 Output: Urine 775 1300 550 Stool 550 510 Other: Voiding Method Urinal # Bowel Movements 50 - Exam In general patient is alert and oriented 3 in no apparent distress HEENT head normocephalic and atraumatic Neck is supple no JVD no goiter no lymphadenopathy Chest exam reveals crackles in both lung zhang no wheezing Cardiac exam reveals irregular heart sounds with tachycardia no murmurs Abdomen is soft nontender no organomegaly with normal bowel sounds Extremity exam reveals 1+ edema, there is a large scabbed ulcer on the left pretibial area with mild surrounding erythema Neurological examination reveals no gross focal deficit - Labs CBC & Chem 7: 03/05/21 06:41 03/05/21 13:37 Labs: Abnormal Lab Results - Last 24 Hours (Table) 03/04/21 03/05/21 03/05/21 Range/Units 20:14 06:36 06:41 RBC 4.15 L (4.30-5.90) m/uL Hgb 11.7 L (13.0-17.5) gm/dL Hct 35.5 L (39.0-53.0) % Sodium (137-145) mmol/L Potassium (3.5-5.1) mmol/L Chloride (98-107) mmol/L Carbon Dioxide (22-30) mmol/L BUN (9-20) mg/dL Creatinine (0.66-1.25) mg/dL POC Glucose (mg/dL) 333 H 107 H (75-99) mg/dL Total Protein (6.3-8.2) g/dL Albumin (3.5-5.0) g/dL 03/05/21 03/05/21 03/05/21 Range/Units 06:41 12:11 13:37 RBC (4.30-5.90) m/uL Hgb (13.0-17.5) gm/dL Hct (39.0-53.0) % Sodium 135 L (137-145) mmol/L Potassium 3.2 L 3.4 L (3.5-5.1) mmol/L Chloride 88 L (98-107) mmol/L Carbon Dioxide 36 H (22-30) mmol/L BUN 63 H (9-20) mg/dL Creatinine 2.30 H (0.66-1.25) mg/dL POC Glucose (mg/dL) 128 H (75-99) mg/dL Total Protein 5.6 L (6.3-8.2) g/dL Albumin 2.9 L (3.5-5.0) g/dL Assessment and Plan Plan: Acute pneumonia patient was started on IV Rocephin and IV Zithromax. Pulmonary services are following antibiotic adjusted to Omnicef. Pulmonary services reconsulted Atrial fibrillation with rapid ventricular response. Patient remains on eliquis for anticoagulation. Senia Raygoza. Cardiology services are following Acute congestive heart failure exacerbation with check echocardiogram cardiology consultation requested. Patient remains on IV Lasix. Underlying history of hypertension Underlying history of COPD Underlying history of coronary artery disease Underlying history of hyperlipidemia Underlying history of gout Acute kidney injury. Creatinine up to 3.16. Nephrology services are consulted. Ultrasound of kidneys completed showing findings suggestive of medical renal disease. DVT prophylaxis eliquis. GI prophylaxis Protonix Cardiology, pulmonary and nephrology services are following
[2021-03-05 20:30] LABS: Glucose,Whole Blood 259 mg/dL (75-99)
[2021-03-05] MEDS: INSULIN DETEMIR (LEVEMIR) 100 UNIT/ML SYR SQ SCH (21:15)
[2021-03-05] MEDS: CYCLOBENZAPRINE 10 MG TAB PO PRN (23:15)
[2021-03-05] MEDS: LATANOPROST 0.005% OPHTH DROPS 2.5 ML BTL BOTH EYES SCH (23:16)
[2021-03-06] MEDS: POTASSIUM CHLORIDE ER 20 MEQ TAB.ER PO SCH ×4 (03:23→16:14)
[2021-03-06 06:43] LABS: Glucose,Whole Blood 37 mg/dL (75-99)
[2021-03-06 06:43] LABS: Glucose,Whole Blood 40 mg/dL (75-99)
[2021-03-06] MEDS: INSULIN ASPART (NovoLOG) 100 UNIT/ML VIAL SQ SCH ×3 (06:46→17:34)
[2021-03-06] MEDS: PANTOPRAZOLE 40 MG TABLET PO SCH (06:52)
[2021-03-06 06:56] LABS: Glucose,Whole Blood 40 mg/dL (75-99)
[2021-03-06 07:13] LABS: Glucose,Whole Blood 63 mg/dL (75-99)
[2021-03-06 07:31] LABS: Glucose,Whole Blood 84 mg/dL (75-99)
[2021-03-06] MEDS: HYDROcodone/APAP 10-325MG 1 EACH TAB PO PRN ×2 (08:11→16:08)
[2021-03-06] MEDS: MAGNESIUM OXIDE 400 MG TAB PO SCH (08:12)
[2021-03-06] MEDS: DILTIAZEM ORAL 30 MG TAB PO SCH ×2 (08:12→16:16)
[2021-03-06] MEDS: guaiFENesin 600 MG TABLET.ER PO SCH (08:12)
[2021-03-06] MEDS: APIXABAN 5 MG TAB PO SCH (08:12)
[2021-03-06] MEDS: FUROSEMIDE 10 MG/ML 4 ML VIAL IV SCH (08:13)
[2021-03-06] MEDS: FENOFIBRATE 160 MG TAB PO SCH (08:13)
[2021-03-06] MEDS: ATORVASTATIN 10 MG TAB PO SCH (08:13)
[2021-03-06] MEDS: METOPROLOL SUCCINATE (ER) 50 MG TAB.ER.24H PO SCH (08:13)
[2021-03-06] MEDS: FEBUXOSTAT 80 MG PO SCH (08:19)
[2021-03-06] MEDS: ERGOCALCIFEROL 1,250 MCG (50,000 IU) CAPSULE PO SCH (08:19)
[2021-03-06] MEDS: metOLazone 5 MG TAB PO SCH (08:19)
[2021-03-06] MEDS: ALBUTEROL NEBULIZED 2.5 MG/3 ML INHALATION PRN (08:38)
[2021-03-06] MEDS ORDERED: CEFDINIR 300 MG CAP PO SCH (09:00)
[2021-03-06 09:05] LABS: Calcium 9.2 mg/dL (8.4-10.2); Magnesium 1.6 mg/dL (1.6-2.3); Potassium 3.3 mmol/L (3.5-5.1)
[2021-03-06 11:53] LABS: Glucose,Whole Blood 210 mg/dL (75-99)
[2021-03-06 13:01] VITALS: RESP 18
[2021-03-06 13:04] VITALS: BP 130/75; PULSE 78; TEMP 98
--- NOTE | 2021-03-06 13:17 | P.PN ---
Subjective Patient is seen in follow-up for acute kidney injury and chronic kidney disease. Patient has chronic kidney disease stage IIIB with baseline creatinine near 2. Renal function better. Maintained IV Lasix. Good urine output. Blood pressure stable. Sitting up in chair. On 3 L nasal cannula. Vital signs are stable. General: The patient appeared well nourished and normally developed. HEENT: No JVD. LUNGS: Breath sounds decreased. HEART: Rate and Rhythm are regular. ABDOMEN: Soft, nontender. EXTREMITITES: Trace edema. Objective - Vital Signs Vital signs: Vital Signs Temp 98.0 F 03/06/21 12:00 Pulse 78 03/06/21 13:06 Resp 18 03/06/21 13:06 BP 130/75 03/06/21 12:00 Pulse Ox 92 L 03/06/21 12:00 Intake & Output 03/05/21 03/06/21 03/06/21 18:59 06:59 18:59 Intake Total 818 118 480 Output Total 2631 4256 1896 Balance -490 -3529 -9382 Weight 65.2 kg 103.9 kg Intake: Oral 818 118 480 Output: Urine 825 1025 925 Stool 600 608 7805 Other: Voiding Method Urinal Urinal - Labs CBC & Chem 7: 03/05/21 06:41 03/06/21 07:45 Labs: Abnormal Lab Results - Last 24 Hours (Table) 03/05/21 03/05/21 03/05/21 Range/Units 13:37 17:01 20:28 Sodium (137-145) mmol/L Potassium 3.4 L (3.5-5.1) mmol/L Chloride (98-107) mmol/L Carbon Dioxide (22-30) mmol/L BUN (9-20) mg/dL Creatinine (0.66-1.25) mg/dL Glucose (74-99) mg/dL POC Glucose (mg/dL) 254 H 259 H (75-99) mg/dL 03/05/21 03/06/21 03/06/21 Range/Units 21:13 06:40 06:41 Sodium (137-145) mmol/L Potassium 3.2 L (3.5-5.1) mmol/L Chloride (98-107) mmol/L Carbon Dioxide (22-30) mmol/L BUN (9-20) mg/dL Creatinine (0.66-1.25) mg/dL Glucose (74-99) mg/dL POC Glucose (mg/dL) 37 L 40 L (75-99) mg/dL 03/06/21 03/06/21 03/06/21 Range/Units 06:54 07:11 07:45 Sodium 134 L (137-145) mmol/L Potassium 3.3 L (3.5-5.1) mmol/L Chloride 85 L (98-107) mmol/L Carbon Dioxide 37 H (22-30) mmol/L BUN 56 H (9-20) mg/dL Creatinine 2.06 H (0.66-1.25) mg/dL Glucose 146 H (74-99) mg/dL POC Glucose (mg/dL) 40 L 63 L (75-99) mg/dL 03/06/21 Range/Units 11:51 Sodium (137-145) mmol/L Potassium (3.5-5.1) mmol/L Chloride (98-107) mmol/L Carbon Dioxide (22-30) mmol/L BUN (9-20) mg/dL Creatinine (0.66-1.25) mg/dL Glucose (74-99) mg/dL POC Glucose (mg/dL) 210 H (75-99) mg/dL Assessment and Plan Plan: Assessment: 1. Acute kidney injury mostly prerenal secondary to cardiorenal syndrome. Renal function better. Creatinine 2.06 today. No hydronephrosis on kidney ultrasound. 2. Chronic kidney disease stage IIIB with baseline creatinine near 2 secondary to diabetic kidney disease and cardiorenal syndrome. 3. Acute on chronic diastolic CHF with moderate to severe tricuspid regurgitation, moderate mitral regurgitation. 4. Severe pulmonary hypertension. 5. Hypokalemia from diuresis and hypomagnesemia. 6. Hypomagnesemia from diuresis. Plan: Change Lasix to 60 mg orally twice daily. Stop metolazone. Potassium was replaced. Replace magnesium. Avoid nephrotoxins. Continue to monitor renal function and urine output. Repeat electrolytes in the morning. Will need BMP and magnesium level checked 2-3 days postdischarge. Follow up outpatient in 1 week.
[2021-03-06] MEDS ORDERED: Potassium Replacement Protocol 1 EACH MISC MISCELLANE PRN (13:46)
[2021-03-06] MEDS ORDERED: FUROSEMIDE 20 MG TAB PO SCH (16:00)
[2021-03-06] MEDS: MAGNESIUM SULFATE-D5W PMX 1 GM in DEXTROSE/WATER 1 100ML.BAG IVPB SCH (16:16)
--- NOTE | 2021-03-06 16:54 | P.DS ---
Providers Date of admission: 02/12/21 12:30 Expected date of discharge: 03/06/21 Attending physician: Navdeep Rayo Consults: 02/12/21 12:31 Consult Physician Routine Consulting Provider: Guzman Partida Consult Reason/Comments: A. fib with RVR, CHF Do you want consulting provider notified?: Yes Consult Physician Routine Consulting Provider: Zaheer Gomez Consult Reason/Comments: CHF, PNA Do you want consulting provider notified?: Yes 02/13/21 13:04 Consult Physician Routine Consulting Provider: Kate Terrazas Consult Reason/Comments: ckd Do you want consulting provider notified?: Yes 02/27/21 11:54 Consult Physician Routine Consulting Provider: Percy Medina Consult Reason/Comments: shortness of breath Do you want consulting provider notified?: Yes Primary care physician: Navdeepkeerthi Rayo [facility] Course: Diagnosis on discharge: Acute pneumonia patient was started on IV Rocephin and IV Zithromax. Pulmonary services are following antibiotic adjusted to Omnicef. Pulmonary services reconsulted Atrial fibrillation with rapid ventricular response. Patient remains on eliquis for anticoagulation. [facility] Card[facility] services are following Acute congestive heart failure exacerbation with check echocardiogram cardiology consultation requested. Patient remains on IV Lasix. Underlying history of hypertension Underlying history of COPD Underlying history of coronary artery disease Underlying history of hyperlipidemia Underlying history of gout Acute kidney injury. Creatinine up to 3.16. Nephrology services are consulted. Ultrasound of kidneys completed showing findings suggestive of medical renal disease. Dose of diuretics adjusted, creatinine at the time of discharge 2.06 Hospital course: Faisal Andrade, is a 70-year-old male who presented to [facility] emergency room with a chief complaint of worsening shortness of breath over several weeks and cough and chest congestion, he was evaluated in the emergency room vital examination on presentation revealed a temperature of 96.7 also 130 respiration 26 blood pressure 142/87 pulse ox 96% on 3 L nasal cannula white blood count was 9.6 hemoglobin 14.1 platelet count 291 sodium 140 potassium 4.7 chloride 110 CO2 20 BUN 58 creatinine 2.4 troponin level was 0.044 BNP was elevated at 5717 Gu virus PCR was negative. Chest x-ray done in the emergency room revealed right lower lobe infiltrate suggestive of pneumonia, EKG revealed evidence of atrial fibrillation with rapid ventricular response. Patient was admitted to telemetry floor, he was started on IV antibiotics ceftriaxone and Zithromax, he was started on Cardizem drip, and IV Lasix, cardiology consultation and pulmonary consultation were requested. On 02/13/2021 patient was seen and examined on the medical floor, he is alert and oriented 3 in no apparent distress he is still complaining of shortness of breath however he noticed some improvement since yesterday he also had some occasional cough otherwise he denies any complaints there is no fever or chills no headache or dizziness no chest pain no nausea or vomiting no abdominal pain no diarrhea no blood in the stools no burning with urination no frequency or urgency and no hematuria he is maintained on IV Lasix his creatinine is going up chronic kidney disease will add a consult for nephrology at this time On 02/14/2021 patient currently resting on BiPAP. Patient does wake up quickly falls back to sleep. Per nursing staff patient remained short of breath with minimal activity. Patient remains on IV Lasix. IV Lasix have been decreased to 2 acute kidney injury. Cardiology, pulmonary and nephrology services are following. Ultrasound kidneys has been ordered per nephrology. At this time patient denies nausea vomiting or diarrhea. Patient denies any urinary burning or frequency On 02/15/2021 patient currently resting on BiPAP. Patient does wake up quickly falls back to sleep. Per nursing staff patient remained short of breath with minimal activity. he is still complaining of shortness of breath however he noticed some improvement since yesterday he also had some occasional cough otherwise he denies any complaints there is no fever or chills no headache or dizziness no chest pain no nausea or vomiting no abdominal pain no diarrhea no blood in the stools no burning with urination no frequency or urgency and no hematuria he is maintained on IV Lasix his creatinine is going up chronic kidney disease will add a consult for nephrology at this time. Patient remains on IV Lasix. IV Lasix have been decreased to 2 acute kidney injury. Cardiology, pulmonary and nephrology services are following. Ultrasound kidneys has been ordered per nephrology. At this time patient denies nausea vomiting or diarrhea. Patient denies any urinary burning or frequency On 02/16/2021 patient currently resting on BiPAP. Patient does wake up was able to keep breakfast. Patient maintained on IV Lasix 40 mg twice a day. Ultrasound of kidneys completed showing findings suggestive of medical renal disease. Repeat labs have been ordered. Patient denies chest pain. Patient denies nausea vomiting or diarrhea. Patient denies any urinary burning or frequency. Cardiology, pulmonary and nephrology services are following On 02/17/2021 patient's alert and oriented 3. Patient currently resting on BiPAP. Patient reports he is starting to feel better. Creatinine and bun trending down. Patient does report some shortness breath but does state this is improved. Patient denies chest pain. Patient denies nausea vomiting or diarrhea. Patient denies any urinary burning or frequency. Patient remains on azithromycin and Rocephin for IV antibiotics. IV Lasix 40 mg every 12 hours. Cardiology, pulmonary and nephrology following On 02/18/2021 patient was seen and examined on the medical floor he is alert and oriented 3 in no apparent distress he is still complaining of cough and shortness of breath otherwise he denies any complaints there is no fever or chills no headache or dizziness step pain no palpitation no nausea or vomiting no abdominal pain no diarrhea no blood in the stools no burning with urination no frequency or urgency and no hip On 02/19/2021 Patient was seen and examined on the medical floor, he is alert and oriented x 3 in no distress, he denies any complaints there is no fever or chills no headache or dizziness no chest pain no shortness of breath no palpitation no nausea or vomiting no abdominal pain no diarrhea no blood in the stools no burning with urination no frequency or urgency and no hematuria, there is no weakness or numbness in any of the extremities no change in vision speech or gait. He is still complaining of cough, will add Mucinex and try to obtain a sputum sample for culture. On 02/20/2021 Patient was seen and examined on the medical floor, he is alert and oriented x 3 in no distress, he denies any complaints there is no fever or chills no headache or dizziness no chest pain no shortness of breath no palpitation no cough no nausea or vomiting no abdominal pain no diarrhea no bloo d in the stools no burning with urination no frequency or urgency and no hematuria, there is no weakness or numbness in any of the extremities no change in vision speech or gait. Vital exam reveals a temperature of 97.9 pulse 1 or 2 respiration 20 lungs pressure 130/88 pulse ox 89% on 15 L high flow cannula. White blood count is 9.3 hemoglobin 12.9 platelet count 207 sodium 139 potassium 3.7 chloride 102 CO2 27 BUN 66 creatinine 1.75 On 02/21/2021 patient is alert and oriented 3 currently eating lunch. Patient denies chest pain or shortness breath. Patient denies nausea vomiting or diarr hea. Patient denies any urinary burning or frequency. Patient remains on 15 L high flow BiPAP at rest. Bun 66 creatinine 2.00. Pulmonary cardiology and nephrology services are following On 02/22/2021 patient was seen and examined on the medical floor he is alert and oriented 3 in no apparent distress he is still complaining of cough and shortness of breath otherwise he denies any complaints there is no fever or chills no headache or dizziness step pain no palpitation no nausea or vomiting no abdominal pain no diarrhea no blood in the stools no burning with urination no frequency or urgency and no hematuria patient is still requiring BiPAP On 02/24/2021 patient was seen and examined on the medical floor he is alert and oriented 3 in no distress, he is maintained on oxygen via nasal cannula and is tolerating well he is using BiPAP at night there is no fever or chills no headache or dizziness no chest pain no shortness of breath at rest no cough no nausea or vomiting no abdominal pain no diarrhea no blood in the stools no burning with urination no frequency or urgency and no hematuria On 02/25/2021 patient was seen and examined on the telemetry floor he is alert and oriented 3 in no distress currently he is maintained on BiPAP there is no fever or chills no headache or dizziness no chest pain no shortness of breath no cough no nausea or vomiting no abdominal pain no diarrhea no blood in the stools no burning with urination no frequency or urgency and no hematuria On 02/26/2021 patient was seen and examined on the telemetry floor he is alert and oriented, he is maintained on BiPAP he has worsening shortness of breath today. there is no fever or chills no headache or dizziness no chest pain no shortness of breath no cough no nausea or vomiting no abdominal pain no diarrhea no blood in the stools no burning with urination no frequency or urgency and no hematuria. will repeat CXR today. On 02/27/2021 patient was seen and examined on the medical floor he is alert and oriented 3 in no apparent distress he is still complaining of shortness of breath however he feels better than yesterday otherwise he denies any complaints at this time, repeat chest x-ray done yesterday did not reveal any significant change from prior, at this time I would ask pulmonary to reevaluate him again, patient received IV antibiotic for 14 days, I would discontinue IV antibiotic and start Omnicef orally, will follow closely possible discharge soon if stable. On 02/28/2021 patient's alert and oriented 3. Patient reports that he is feeling better. High flow decreased to 5 L. Pulmonary services reconsulted. Patient maintained on IV Lasix. Antibiotics adjusted to Omnicef. Patient will likely need home O2 upon discharge. Patient is improving progressing slowly. Discharge planning in place. Patient denies any chest pain. Patient denies nausea vomiting or diarrhea. Patient denies any urinary burning or frequency On 03/01/2021 patient was seen and examined on the medical floor due to lack of improvement over the last several days I have requested reevaluation by pulmonary, computed tomography scan of the chest without contrast was ordered and patient will be evaluated by Dr. Medina today, patient is still complaining of cough and shortness of breath and generalized weakness otherwise he denies any complaints there is no fever or chills no headache or dizziness no chest pain no nausea or vomiting no abdominal pain no diarrhea no blood in the stools no burning with urination no frequency or urgency and no hematuria On 03/02/2021 patient is currently resting comfortably in bed. Patient was reevaluated by pulmonary service remains on Lasix and Omnicef. CT of chest was performed showing bilateral lower lobe pulmonary infiltrates and atelectasis a lso likely related to bronchopneumonia cardiomegaly with pleural effusions. Congestive heart failure is possible. pleural fluid and pulmonary infiltrates patient is currently resting comfortably on 5 L and BiPAP at rest. patient denies chest pain. Patient denies nausea vomiting or diarrhea. Patient denies any urinary burning or frequency On 03/03/2021 patient's alert and oriented currently sitting up comfortably in bed. Patient reports that he feels the best he has today since hospitalization. Patient remains on 5 L but discussed with nursing staff to attempt to wean oxygen down. Patient remains on IV Lasix and Omnicef. Patient denies chest pain. Patient denies nausea vomiting or diarrhea. Patient denies any urinary burning or frequency. On 03/04/2021 patient was seen and examined on the medical floor he is alert and oriented 3 in no apparent distress he is still complaining of cough and shortness of breath with activity otherwise he denies any complaints there is no fever or chills no headache or dizziness no chest pain no nausea or vomiting no abdominal pain no diarrhea and no urinary symptoms. Currently he is maintained on oxygen 2 L via nasal cannula, patient has improved significantly in the last few days possible discharge to home tomorrow with oxygen On 03/05/2021 Patient was seen and examined on the medical floor, he is alert and oriented x 3 in no distress, he denies any complaints there is no fever or chills no headache or dizziness no chest pain, shortness of breath is improving , no palpitation no cough no nausea or vomiting no abdominal pain no diarrhea no blood in the stools no burning with urination no frequency or urgency and no hematuria, there is no weakness or numbness in any of the extremities no change in vision speech or gait. On 03/06/2021 patient was seen and examined on the medical floor he is feeling better his shortness of breath and cough are improving otherwise he is complaining of generalized weakness and no other complaints there is no fever or chills no headache or dizziness no chest pain no palpitation no nausea or vomiting no abdominal pain no diarrhea no blood in the stools no burning with urination no frequency or urgency and no hematuria. Patient will be discharged to home today changes in medications explained to him in details and he was given a prescription for all the new medications he will be seen in our office within one week for further evaluation and treatment. Patient Condition at Discharge: Stable Plan - Discharge Summary Discharge Rx Participant: Yes New Discharge Prescriptions: New RX: Magnesium Oxide [Mag-Ox] 400 mg PO BID tab RX: Cefdinir [Omnicef] 300 mg PO DAILY cap RX: metOLazone [Zaroxolyn] 5 mg PO DAILY tab RX: Diltiazem Oral [Cardizem*] 60 mg PO TID tab RX: Apixaban [Eliquis] 5 mg PO BID tab Continue RX: Cyclobenzaprine [Flexeril] 10 mg PO HS PRN PRN Reason: Muscle Pain RX: glipiZIDE [Glucotrol] 5 mg PO AC-BID tab RX: Febuxostat [Uloric] 80 mg PO DAILY RX: Simvastatin [Zocor] 20 mg PO DAILY RX: Fenofibrate Nanocrystallized [Tricor] 145 mg PO DAILY RX: Omeprazole 20 mg PO DAILY RX: Albuterol Sulfate [Proventil Hfa] 2 puff INHALATION RT-QID PRN PRN Reason: Shortness Of Breath RX: Hydrocodone/Acetaminophen [[place] 10-325] 1 tab PO Q6H PRN PRN Reason: Pain RX: Metoprolol Succinate [Toprol XL] 50 mg PO BID RX: Ergocalciferol [Vitamin D2 (DRISDOL)] 50,000 unit PO Q7D RX: Furosemide [Lasix] 40 mg PO BID@0900,1600 #60 tab RX: Latanoprost/Pf [Latanoprost 0.005% Eye Drop] 1 drop BOTH EYES HS Changed RX: Insulin Glargine,Hum.rec.anlog [Lantus Solostar] 25 unit SQ QAM #0 Discontinued RX: Apixaban [Eliquis] 2.5 mg PO BID #60 tablet amLODIPine [Norvasc] 5 mg PO DAILY hydrOXYzine pamoate [Vistaril] 50 mg PO BID Discharge Medication List RX: Cyclobenzaprine [Flexeril] 10 mg PO HS PRN 01/09/15 [History] RX: glipiZIDE [Glucotrol] 5 mg PO AC-BID tab 02/13/15 [Rx] RX: Albuterol Sulfate [Proventil Hfa] 2 puff INHALATION RT-QID PRN 03/02/19 [History] RX: Ergocalciferol [Vitamin D2 (DRISDOL)] 50,000 unit PO Q7D 03/02/19 [History] RX: Febuxostat [Uloric] 80 mg PO DAILY 03/02/19 [History] RX: Fenofibrate Nanocrystallized [Tricor] 145 mg PO DAILY 03/02/19 [History] RX: Hydrocodone/Acetaminophen [[place] 10-325] 1 tab PO Q6H PRN 03/02/19 [History] RX: Metoprolol Succinate [Toprol XL] 50 mg PO BID 03/02/19 [History] RX: Omeprazole 20 mg PO DAILY 03/02/19 [History] RX: Simvastatin [Zocor] 20 mg PO DAILY 03/02/19 [History] RX: Furosemide [Lasix] 40 mg PO BID@0900,1600 #60 tab 03/11/19 [Rx] RX: Latanoprost/Pf [Latanoprost 0.005% Eye Drop] 1 drop BOTH EYES HS 02/12/21 [History] RX: Apixaban [Eliquis] 5 mg PO BID tab 03/06/21 [Rx] RX: Cefdinir [Omnicef] 300 mg PO DAILY cap 03/06/21 [Rx] RX: Diltiazem Oral [Cardizem*] 60 mg PO TID tab 03/06/21 [Rx] RX: Insulin Glargine,Hum.rec.anlog [Lantus Solostar] 25 unit SQ QAM #0 03/06/21 [Rx] RX: Magnesium Oxide [Mag-Ox] 400 mg PO BID tab 03/06/21 [Rx] RX: metOLazone [Zaroxolyn] 5 mg PO DAILY tab 03/06/21 [Rx] Follow up Appointment(s)/Referral(s): Fadia Bolaños MD [STAFF PHYSICIAN] - 03/19/21 8:30 am Navdeep Rayo MD [Primary Care Provider] - 1-2 days (Office left message to call back with a follow up appointment. Please ask for an appointment on Friday, March 09 that is when you will need a repeat blood draw.) Reno Atkinson DO [STAFF PHYSICIAN] - 03/28/21 11:40 am (Kidney specialist - with Nurse Practioner.) Beverley Bowers [NON-STAFF] - (Oxygen supplier.) Patient Instructions/Handouts: Heart Failure (DC), A-fib (Atrial Fibrillation) (DC), Low-Sodium Diet (DC) Activity/Diet/Wound Care/Special Instructions: Patient will need home oxygen at discharge secondary to COPD Patient will need his Glucometer and testing supplies delivered from [facility] [employer] at d/c, cost is $4.00. Labs-BMP on Friday CHF 1. Weigh yourself every morning after you urinate. If you gain 2-3 pounds overnight or 5 pounds in one week, call your primary physician for guidance on your medications. Keep a log of your weights. 2. Avoid salt, or foods with hidden salt. Extra salt makes your heart work harder and traps the fluid in your body for longer. 3. Take all of your medications as directed, especially your water pills. NEVER skip a dose. 4. Elevate your legs when you are not up moving around to help with circulation and prevent swelling. 5. Call your physician if you notice any extra swelling in your legs, ankles, feet or abdomen, if you have a new dry cough, if your shortness of breath worsens with activity or at rest, or if you feel more fatigued.
[2021-03-06 17:08] LABS: Glucose,Whole Blood 290 mg/dL (75-99)
== END 2021-03-06 19:09 | disposition home or self-care (01) | DRG 291 ==
LOC: EC 10:10 → 3SCARD 12:30 → 1SOBS 23:18 → 3SCARD 02-13 16:29
PROVIDERS: ADMIT Internal Medicine; ATTEND Internal Medicine
PROC: 5A09457 Assistance with Respiratory Ventilation, 24-96 Consecutive Hours, Continuous Positive Airway Pressure (ICD-10-PCS; principal; 2021-02-14)
PROC: 5A0935A Assistance with Respiratory Ventilation, Less than 24 Consecutive Hours, High Flow/Velocity Cannula (ICD-10-PCS; 2021-02-16)
DX: I13.0 Hypertensive heart and chronic kidney disease with heart failure and stage 1 through stage 4 chronic kidney disease, or unspecified chronic kidney disease (principal); J18.9 Pneumonia, unspecified organism; N17.0 Acute kidney failure with tubular necrosis; J96.21 Acute and chronic respiratory failure with hypoxia; I50.33 Acute on chronic diastolic (congestive) heart failure; J18.0 Bronchopneumonia, unspecified organism; J44.0 Chronic obstructive pulmonary disease with (acute) lower respiratory infection; J44.1 Chronic obstructive pulmonary disease with (acute) exacerbation; E87.1 Hypo-osmolality and hyponatremia; J98.11 Atelectasis; E11.42 Type 2 diabetes mellitus with diabetic polyneuropathy; E11.649 Type 2 diabetes mellitus with hypoglycemia without coma; E11.22 Type 2 diabetes mellitus with diabetic chronic kidney disease; I48.0 Paroxysmal atrial fibrillation; I27.29 Other secondary pulmonary hypertension; N18.32 Chronic kidney disease, stage 3b; I27.81 Cor pulmonale (chronic); Z93.2 Ileostomy status; Z20.822 Contact with and (suspected) exposure to COVID-19; E87.6 Hypokalemia; T50.2X5A Adverse effect of carbonic-anhydrase inhibitors, benzothiadiazides and other diuretics, initial encounter; E83.42 Hypomagnesemia; E87.5 Hyperkalemia; I25.10 Atherosclerotic heart disease of native coronary artery without angina pectoris; I08.3 Combined rheumatic disorders of mitral, aortic and tricuspid valves; G47.33 Obstructive sleep apnea (adult) (pediatric); E66.9 Obesity, unspecified; E78.5 Hyperlipidemia, unspecified; E05.90 Thyrotoxicosis, unspecified without thyrotoxic crisis or storm; E03.9 Hypothyroidism, unspecified; M10.9 Gout, unspecified; F32.9 Major depressive disorder, single episode, unspecified; Z68.37 Body mass index [BMI] 37.0-37.9, adult; I25.2 Old myocardial infarction; Z90.49 Acquired absence of other specified parts of digestive tract; Z95.3 Presence of xenogenic heart valve; Z98.890 Other specified postprocedural states; Z88.8 Allergy status to other drugs, medicaments and biological substances; Z79.899 Other long term (current) drug therapy; Z79.84 Long term (current) use of oral hypoglycemic drugs; Z79.01 Long term (current) use of anticoagulants; Z86.711 Personal history of pulmonary embolism; Z85.038 Personal history of other malignant neoplasm of large intestine; Z86.73 Personal history of transient ischemic attack (TIA), and cerebral infarction without residual deficits; Z82.49 Family history of ischemic heart disease and other diseases of the circulatory system; Z93.3 Colostomy status
CPT/HCPCS: 36415; 71045; 71046; 71250; 76770; 80048; 80053; 81001; 83605; 83735; 83880; 84132; 84145; 84439; 84443; 84484; 85025; 85610; 85730; 87040; 87070; 87205; 87635; 93005; 93306; 94640; 94660; 94760; 96365; 96375; 99291

== ENCOUNTER 2021-04-03 12:27 | Inpatient (IN) | payer MEDICARE ==
[2021-04-03] MEDS ORDERED: SODIUM CHLORIDE 0.9% 500 ML 500 ML IV STA (12:44)
--- NOTE | 2021-04-03 12:49 | ED ---
General Adult HPI - General Chief complaint: Recheck/Abnormal Lab/Rx Stated complaint: ABN labs Time Seen by Provider: 04/03/21 12:35 Source: patient Mode of arrival: ambulatory Limitations: no limitations - History of Present Illness Initial comments: Dictation was produced using [employer] dictation software. please excuse any grammatical, word or spelling errors. Chief Complaint: 70-year-old male with past medical history of heart failure, dyslipidemia hypertension sent in for left leg derangement. History of Present Illness: They 62-year-old male he was at his primary care physician's office yesterday for a posthospitalization follow-up. He had labs drawn. He was told that the results were abnormal he had a low potassium. He does not remember what the exact values were but he was told to come to the emergency department. Patient's been admitted recently for heart failure. He states after hospitalization and since being at home he has been feeling rather well. Denies any significant complaints today. The ROS documented in this emergency department record has been reviewed and confirmed by me. Those systems with pertinent positive or negative responses have been documented in the HPI. All other systems are other negative and/or noncontributory. PHYSICAL EXAM: General Impression: Alert and oriented x3, not in acute distress HEENT: Normocephalic atraumatic, extra-ocular movements intact, pupils equal and reactive to light bilaterally, mucous membranes moist. Cardiovascular: Heart regular rate and rhythm Chest: Able to complete full sentences, no retractions, no tachypnea Abdomen: abdomen soft, non-tender, non-distended, no organomegaly Musculoskeletal: Pulses present and equal in all extremities, no peripheral edema Motor: no focal deficits noted Neurological: CN II-XII grossly intact, no focal motor or sensory deficits noted Skin: Intact with no visualized rashes Psych: Normal affect and mood ED course: 70-year-old male presents emergency department for hypokalemia. Vital signs upon arrival are within acceptable limits. Patient is well- appearing without any symptoms. EKG interpretation: Ventricular rate 81, A. fib, QRS 180, QTc 557. No ME prolongation, no QTC prolongation, no ST or T-wave changes noted. EKG compared to 2020 showing no changes. Overall, this EKG is unremarkable Laboratory evaluation obtained. Potassium was 2.6, elevated renal markers, slightly above is normal. Rest of electrolytes are normal. She given parenterally potassium and oral magnesium. Patient will be admitted to observation for electrolyte replenishment, IV hydration. - Related Data Home Medications Medication Instructions Recorded Confirmed Cyclobenzaprine [Flexeril] 10 mg PO HS PRN 01/09/15 04/03/21 Albuterol Sulfate [Proventil Hfa] 2 puff INHALATION RT-QID PRN 03/02/19 04/03/21 Ergocalciferol [Vitamin D2 50,000 unit PO Q7D 03/02/19 04/03/21 (DRISDOL)] Febuxostat [Uloric] 80 mg PO DAILY 03/02/19 04/03/21 Fenofibrate Nanocrystallized 145 mg PO DAILY 03/02/19 04/03/21 [Tricor] Hydrocodone/Acetaminophen [[place] 1 tab PO Q6H PRN 03/02/19 04/03/21 10-325] Metoprolol Succinate [Toprol XL] 50 mg PO BID 03/02/19 04/03/21 Omeprazole 20 mg PO DAILY 03/02/19 04/03/21 Simvastatin [Zocor] 20 mg PO DAILY 03/02/19 04/03/21 Latanoprost/Pf [Latanoprost 0.005% 1 drop BOTH EYES HS 02/12/21 04/03/21 Eye Drop] guaiFENesin [Mucinex] 600 mg PO DAILY 04/03/21 04/03/21 Previous Rx's Medication Instructions Recorded glipiZIDE [Glucotrol] 5 mg PO AC-BID tab 02/13/15 Furosemide [Lasix] 40 mg PO BID@0900,1600 #60 tab 03/11/19 Apixaban [Eliquis] 5 mg PO BID tab 03/06/21 Diltiazem Oral [Cardizem*] 60 mg PO TID tab 03/06/21 Insulin Glargine,Hum.rec.anlog 25 unit SQ QAM #0 03/06/21 [Lantus Solostar] Magnesium Oxide [Mag-Ox] 400 mg PO BID tab 03/06/21 metOLazone [Zaroxolyn] 5 mg PO DAILY tab 03/06/21 Allergies Allergy/AdvReac Type Severity Reaction Status Date / Time allopurinol Allergy Rash/Hives Verified 04/03/21 13:24 Review of Systems ROS Statement: Those systems with pertinent positive or pertinent negative responses have been documented in the HPI. ROS Other: All systems not noted in ROS Statement are negative. Past Medical History Past Medical History: Cancer, Chest Pain / Angina, CVA/TIA, Diabetes Mellitus, Hyperlipidemia, Hypertension, Myocardial Infarction ([place]), Sleep Apnea/CPAP/BIPAP, Thyroid Disorder Additional Past Medical History / Comment(s): [place] X2, LAST 06/2013. AORTIC STENOSIS. = SHORT OF BREATH W/ ACTIVITY. 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 HX KIDNEY FAILURE IN PAST. HX GOUT. NEUROPATHY KIM FEET. USES C-PAP. OVERACTIVE THYROID HX. EDEMA IN LEGS. HX BOWEL RESECTION D/T CA, HAS ILEOSTOMY, IRRITATION AT SITE. Last Myocardial Infarction Date:: 02/2013 History of Any Multi-Drug Resistant Organisms: None Reported Past Surgical History: Bowel Resection, Cardiac Valve Replacement, Heart Catheterization, Hernia Repair, Orthopedic Surgery Additional Past Surgical History / Comment(s): CARDIAC CATH X3. LT SHOULDER SURG. BOWEL SURG,. aortic valve replacement 02/06/15 Past Anesthesia/Blood Transfusion Reactions: No Reported Reaction Past Psychological History: Depression Smoking Status: Never smoker Past Alcohol Use History: Occasional Past Drug Use History: None Reported - Past Family History Mother Family Medical History: Coronary Artery Disease (CAD), Hypertension Father Family Medical History: No Reported History Additional Family Medical History / Comment(s): heart valve disorders General Exam Limitations: no limitations Course Vital Signs 04/03/21 04/03/21 12:31 12:58 Temperature 98.5 F Pulse Rate 100 73 Respiratory 16 18 Rate Blood Pressure 91/58 107/72 O2 Sat by Pulse 95 92 L Oximetry Medical Decision Making - Lab Data Result diagrams: 04/03/21 12:47 Lab Results 04/03/21 Range/Units 12:47 Sodium 137 (137-145) mmol/L Potassium 2.6 L* (3.5-5.1) mmol/L Chloride 92 L (98-107) mmol/L Carbon Dioxide 27 (22-30) mmol/L Anion Gap 18 mmol/L BUN 57 H (9-20) mg/dL Creatinine 3.25 H (0.66-1.25) mg/dL Est GFR (CKD-EPI)AfAm 21 (>60 ml/min/1.73 sqM) Est GFR (CKD-EPI)NonAf 19 (>60 ml/min/1.73 sqM) Glucose 138 H (74-99) mg/dL Calcium 9.6 (8.4-10.2) mg/dL Magnesium 1.6 (1.6-2.3) mg/dL Disposition Clinical Impression: Hypokalemia Disposition: ADMITTED IP TO THIS HOSP Condition: Fair Referrals: Navdeep Rayo MD [Primary Care Provider] - 1-2 days
[2021-04-03 13:12] LABS: Calcium 9.6 mg/dL (8.4-10.2); Magnesium 1.6 mg/dL (1.6-2.3)
[2021-04-03 13:22] LABS: Potassium 2.6 mmol/L (3.5-5.1)
[2021-04-03] MEDS ORDERED: NALOXONE 0.4 MG/ML 1 ML VIAL IV PRN (13:49)
[2021-04-03] MEDS ORDERED: MAGNESIUM OXIDE 400 MG TAB PO STA (13:51)
[2021-04-03] MEDS: SODIUM CHLORIDE 0.9% 1,000 ML IV SCH (14:05)
[2021-04-03] MEDS: POTASSIUM CHLORIDE 20 MEQ in WATER FOR INJECTION 1 100ML.BAG IVPB SCH ×2 (14:05→17:17)
[2021-04-03] MEDS ORDERED: ALBUTEROL NEBULIZED 2.5 MG/3 ML INHALATION PRN (16:55)
--- NOTE | 2021-04-03 17:10 | P.HPIM ---
History of Present Illness H&P Date: 04/03/21 Faisal Andrade, is a 70-year-old male who was in his normal state of health, he had an outpatient blood test that revealed a potassium of 2.4 patient was contacted and was told to come to emergency room for treatment of hypokalemia patient was evaluated in the emergency room repeat potassium was 2.6 he was started on IV potassium supplements and was admitted to telemetry floor for further evaluation and treatment she consultation was requested. Patient has a known history of chronic kidney disease, he was recently admitted to [facility] with acute exacerbation of congestive heart failure and acute on chronic renal failure, at that time he was seen by cardiology and nephrology, medications were adjusted and patient was discharged home on 03/06/2021, patient did reasonably well over the last month however today he had significant hypokalemia. Clinically he denies any symptoms, there is no chest pain or shortness of breath, lower extremity edema is at baseline, creatinine level was 3.25 which is higher than his baseline around 2. Past Medical History Past Medical History: Cancer, Chest Pain / Angina, CVA/TIA, Diabetes Mellitus, Hyperlipidemia, Hypertension, Myocardial Infarction ([place]), Sleep Apnea/CPAP/BIPAP, Thyroid Disorder Additional Past Medical History / Comment(s): [place] X2, LAST 06/2013. AORTIC [place] NOSIS. = SHORT OF BREATH W/ ACTIVITY. 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 HX KIDNEY FAILURE IN PAST. HX GOUT. NEUROPATHY KIM FEET. USES C-PAP. OVERACTIVE THYROID HX. EDEMA IN LEGS. HX BOWEL RESECTION D/T CA, HAS ILEOSTOMY, IRRITATION AT SITE. Last Myocardial Infarction Date:: 02/2013 History of Any Multi-Drug Resistant Organisms: None Reported Past Surgical History: Bowel Resection, Cardiac Valve Replacement, Heart Catheterization, Hernia Repair, Orthopedic Surgery Additional Past Surgical History / Comment(s): CARDIAC CATH X3. LT SHOULDER SURG. BOWEL SURG,. aortic valve replacement 02/06/15 Past Anesthesia/Blood Transfusion Reactions: No Reported Reaction Past Psychological History: Depression Smoking Status: Never smoker Past Alcohol Use History: Occasional Past Drug Use History: None Reported - Past Family History Mother Family Medical History: Coronary Artery Disease (CAD), Hypertension Father Family Medical History: No Reported History Additional Family Medical History / Comment(s): heart valve disorders Medications and Allergies Home Medications Medication Instructions Recorded Confirmed Type Cyclobenzaprine [Flexeril] 10 mg PO HS PRN 01/09/15 04/03/21 History glipiZIDE [Glucotrol] 5 mg PO AC-BID tab 02/13/15 04/03/21 Rx Albuterol Sulfate [Proventil Hfa] 2 puff INHALATION RT-QID PRN 03/02/19 04/03/21 History Ergocalciferol [Vitamin D2 50,000 unit PO Q7D 03/02/19 04/03/21 History (DRISDOL)] Febuxostat [Uloric] 80 mg PO DAILY 03/02/19 04/03/21 History Fenofibrate Nanocrystallized 145 mg PO DAILY 03/02/19 04/03/21 History [Tricor] Hydrocodone/Acetaminophen [[place] 1 tab PO Q6H PRN 03/02/19 04/03/21 History 10-325] Metoprolol Succinate [Toprol XL] 50 mg PO BID 03/02/19 04/03/21 History Omeprazole 20 mg PO DAILY 03/02/19 04/03/21 History Simvastatin [Zocor] 20 mg PO DAILY 03/02/19 04/03/21 History Furosemide [Lasix] 40 mg PO BID@0900,1600 #60 tab 03/11/19 04/03/21 Rx Latanoprost/Pf [Latanoprost 0.005% 1 drop BOTH EYES HS 02/12/21 04/03/21 History Eye Drop] Apixaban [Eliquis] 5 mg PO BID tab 03/06/21 04/03/21 Rx Diltiazem Oral [Cardizem*] 60 mg PO TID tab 03/06/21 04/03/21 Rx Insulin Glargine,Hum.rec.anlog 25 unit SQ QAM #0 03/06/21 04/03/21 Rx [Lantus Solostar] Magnesium Oxide [Mag-Ox] 400 mg PO BID tab 03/06/21 04/03/21 Rx metOLazone [Zaroxolyn] 5 mg PO DAILY tab 03/06/21 04/03/21 Rx guaiFENesin [Mucinex] 600 mg PO DAILY 04/03/21 04/03/21 History Allergies Allergy/AdvReac Type Severity Reaction Status Date / Time allopurinol Allergy Rash/Hives Verified 04/03/21 13:24 Physical Exam Vitals: Vital Signs Temp Pulse Pulse Resp BP BP Pulse Ox 04/03/21 15:33 98.5 F 74 18 114/60 93 L 04/03/21 15:00 98 F 80 16 134/73 96 04/03/21 14:10 74 18 114/60 93 L 04/03/21 12:58 73 18 107/72 92 L 04/03/21 12:31 98.5 F 100 16 91/58 95 Intake and Output 04/03/21 04/03/21 04/03/21 06:59 14:59 22:59 Other: Weight 102.058 kg In general patient is alert and oriented x 3 in no distress HEENT head normocephalic and atraumatic Neck is supple no JVD no goiter no lymphadenopathy no carotid bruit Chest examination is clear to auscultation no crackles no wheezing Cardiac exam reveals regular heart sounds S1 and S2 no gallops no murmurs Abdomen is soft nontender no organomegaly with normal bowel sounds Extremity exam reveals no edema no cyanosis or clubbing Neurological examination reveals no gross focal deficits Results CBC & Chem 7: 04/03/21 12:47 Labs: Abnormal Lab Results - Last 24 Hours (Table) 04/03/21 Range/Units 12:47 Potassium 2.6 L* (3.5-5.1) mmol/L Chloride 92 L (98-107) mmol/L BUN 57 H (9-20) mg/dL Creatinine 3.25 H (0.66-1.25) mg/dL Glucose 138 H (74-99) mg/dL Assessment and Plan Plan: Severe hypokalemia Acute on chronic renal failure Underlying history of chronic diastolic congestive heart failure, without evidence of exacerbation at this time Underlying history of atrial fibrillation Underlying history of gout Underlying history of asthma Underlying history of hyperlipidemia Underlying history of vitamin D deficiency Underlying history of insulin-dependent diabetes mellitus Underlying history of gastroesophageal reflux disease At this time patient will be admitted to telemetry floor, he will be given potassium supplements Recheck potassium and magnesium levels Nephrology consultation requested Recheck CBC CMP and uric acid level
[2021-04-03] MEDS: glipiZIDE 5 MG TAB PO SCH (17:18)
[2021-04-03 17:29] LABS: Glucose,Whole Blood 104 mg/dL (75-99)
[2021-04-03] MEDS: DILTIAZEM ORAL 60 MG TAB PO SCH ×2 (17:32→21:56)
[2021-04-03 17:51] LABS: HCT 42.4 % (39.0-53.0); MCH 29.6 pg (25.0-35.0); MCHC 35.1 g/dL (31.0-37.0); MCV 84.5 fL (80.0-100.0); Mean Platelet Volume 8.6; Platelet Count 271 k/uL (150-450); Poikilocytosis Slight; RBC 5.02 m/uL (4.30-5.90); WBC 8.8 k/uL (3.8-10.6)
[2021-04-03 17:58] LABS: Albumin 4.6 g/dL (3.5-5.0); Calcium 9.9 mg/dL (8.4-10.2); Magnesium 1.7 mg/dL (1.6-2.3); Total Bilirubin 0.8 mg/dL (0.2-1.3); Total Protein 8.1 g/dL (6.3-8.2)
[2021-04-03 18:18] LABS: HGB 14.9 gm/dL (13.0-17.5)
[2021-04-03 18:21] LABS: Potassium 2.7 mmol/L (3.5-5.1)
[2021-04-03] MEDS: HYDROcodone/APAP 10-325MG 1 EACH TAB PO PRN (18:46)
[2021-04-03 20:17] LABS: Glucose,Whole Blood 88 mg/dL (75-99)
[2021-04-03] MEDS: APIXABAN 5 MG TAB PO SCH (20:30)
[2021-04-03] MEDS: METOPROLOL SUCCINATE (ER) 50 MG TAB.ER.24H PO SCH (20:30)
[2021-04-03] MEDS: LATANOPROST 0.005% OPHTH DROPS 2.5 ML BTL BOTH EYES SCH (20:31)
[2021-04-03] MEDS: MAGNESIUM OXIDE 400 MG TAB PO SCH (20:31)
[2021-04-03] MEDS: POTASSIUM CHLORIDE ER 20 MEQ TAB.ER PO SCH (21:56)
[2021-04-03] MEDS ORDERED: POTASSIUM CHLORIDE 20 MEQ in WATER FOR INJECTION 1 100ML.BAG IVPB STA (22:26)
[2021-04-04] MEDS: HYDROcodone/APAP 10-325MG 1 EACH TAB PO PRN ×3 (00:19→18:27)
[2021-04-04 06:11] LABS: Glucose,Whole Blood 123 mg/dL (75-99)
[2021-04-04] MEDS: PANTOPRAZOLE 40 MG TABLET PO SCH (06:45)
[2021-04-04] MEDS: glipiZIDE 5 MG TAB PO SCH ×2 (06:45→18:27)
[2021-04-04] MEDS ORDERED: metOLazone 5 MG TAB PO SCH (09:00)
[2021-04-04] MEDS ORDERED: FUROSEMIDE 40 MG TAB PO SCH (09:00)
[2021-04-04] MEDS: ATORVASTATIN 10 MG TAB PO SCH (09:28)
[2021-04-04] MEDS: APIXABAN 5 MG TAB PO SCH ×2 (09:28→20:54)
[2021-04-04] MEDS: FENOFIBRATE 160 MG TAB PO SCH (09:29)
[2021-04-04] MEDS: guaiFENesin 600 MG TABLET.ER PO SCH (09:29)
[2021-04-04] MEDS: DILTIAZEM ORAL 60 MG TAB PO SCH ×3 (09:29→20:55)
[2021-04-04] MEDS: INSULIN DETEMIR (LEVEMIR) 100 UNIT/ML SYR SQ SCH (09:29)
[2021-04-04] MEDS: MAGNESIUM OXIDE 400 MG TAB PO SCH ×2 (09:30→20:54)
[2021-04-04] MEDS: POTASSIUM CHLORIDE ER 20 MEQ TAB.ER PO SCH ×4 (09:31→20:54)
[2021-04-04] MEDS: METOPROLOL SUCCINATE (ER) 50 MG TAB.ER.24H PO SCH ×2 (09:31→20:54)
[2021-04-04 09:36] LABS: Basophils # (A) 0.1 k/uL (0-0.2); Basophils % (A) 1 %; Eosinophils # (A) 0.5 k/uL (0-0.7); Eosinophils % (A) 7 %; HCT 41.3 % (39.0-53.0); HGB 13.9 gm/dL (13.0-17.5); Lymphocytes # (A) 1.7 k/uL (1.0-4.8); Lymphocytes % (A) 23 %; MCH 28.8 pg (25.0-35.0); MCHC 33.7 g/dL (31.0-37.0); MCV 85.6 fL (80.0-100.0); Mean Platelet Volume 7.7; Monocytes # (A) 0.7 k/uL (0-1.0); Monocytes % (A) 10 %; Neutrophils # (A) 4.1 k/uL (1.3-7.7); Neutrophils % (A) 57 %; Platelet Count 299 k/uL (150-450); RBC 4.83 m/uL (4.30-5.90); RDW 15.1 % (11.5-15.5); WBC 7.2 k/uL (3.8-10.6)
[2021-04-04 10:08] LABS: Albumin 3.9 g/dL (3.5-5.0); Calcium 9.3 mg/dL (8.4-10.2); Magnesium 1.6 mg/dL (1.6-2.3); Potassium 3.2 mmol/L (3.5-5.1); Total Bilirubin 0.6 mg/dL (0.2-1.3); Total Protein 6.8 g/dL (6.3-8.2)
[2021-04-04] MEDS ORDERED: Potassium Replacement Protocol 1 EACH MISC MISCELLANE PRN (10:14)
[2021-04-04] MEDS ORDERED: POTASSIUM CHLORIDE ER 20 MEQ TAB.ER PO STA (10:38)
--- NOTE | 2021-04-04 10:47 | P.NPCON ---
History of Present Illness - Reason for Consult acute renal failure, chronic renal failure - History of Present Illness Reason for the condition: Acute kidney injury on chronic kidney disease History of present illness: Patient is a 70-year-old male seen in renal consultation for acute kidney injury on chronic kidney disease. Patient has chronic kidney disease stage IIIB with baseline creatinine near 2 secondary to diabetic kidney disease and cardiorenal syndrome. Patient was recently admitted to the hospital with congestive heart failure exacerbation. Patient has diastolic CHF with moderate to severe tricuspid regurgitation and moderate mitral regurgitation. He is currently maintained on oral Lasix 40 mg twice daily. Patient had blood work done outpatient and was advised to go to the hospital due to low potassium levels. Patient states he's been feeling fairly well since his last discharge. No edema. No chest pain or shortness of breath. No vomiting or diarrhea. Denies use of nonsteroidals. Patient's potassium was critically low and is being replaced. Potassium level this morning was 3.2. Creatinine was 3.3 on admission and was 3.15 today. Vital signs are stable. General: The patient appeared well nourished and normally developed. HEENT: Head exam is unremarkable. Neck is without jugular venous distension. LUNGS: Breath sounds decreased. HEART: Rate and Rhythm are regular. ABDOMEN: Soft, no distention. EXTREMITITES: Trace edema. Past Medical History Past Medical History: Atrial Fibrillation, Cancer, Chest Pain / Angina, CVA/TIA, Diabetes Mellitus, Hyperlipidemia, Hypertension, Myocardial Infarction ([place]), Sleep Apnea/CPAP/BIPAP, Thyroid Disorder Additional Past Medical History / Comment(s): [place] X2, LAST 06/2013. AORTIC STENOSIS. = SHORT OF BREATH W/ ACTIVITY. STROKE X2, NOTED ON CT SCAN, RT MID E YE HAS BLIND SPOT. HX KIDNEY FAILURE IN PAST. HX GOUT. NEUROPATHY KIM FEET. USES C-PAP. OVERACTIVE THYROID HX. EDEMA IN LEGS. HX BOWEL RESECTION D/T CA, HAS ILEOSTOMY, IRRITATION AT SITE. Last Myocardial Infarction Date:: 02/2013 History of Any Multi-Drug Resistant Organisms: None Reported Past Surgical History: Bowel Resection, Cardiac Valve Replacement, Heart Catheterization, Hernia Repair, Orthopedic Surgery Additional Past Surgical History / Comment(s): CARDIAC CATH X3. LT SHOULDER [place] RG. BOWEL SURG,. aortic valve replacement 02/06/15 Past Anesthesia/Blood Transfusion Reactions: No Reported Reaction Past Psychological History: Depression Additional Psychological History / Comment(s): SADD. Smoking Status: Never smoker Past Alcohol Use History: Occasional Past Drug Use History: None Reported Additional Drug Use History / Comment(s): USE TEEN ONLY - Past Family History Mother Family Medical History: Coronary Artery Disease (CAD), Hypertension Father Family Medical History: No Reported History Additional Family Medical History / Comment(s): heart valve disorders Medications and Allergies Home Medications Medication Instructions Recorded Confirmed Type Cyclobenzaprine [Flexeril] 10 mg PO HS PRN 01/09/15 04/03/21 History glipiZIDE [Glucotrol] 5 mg PO AC-BID tab 02/13/15 04/03/21 Rx Albuterol Sulfate [Proventil Hfa] 2 puff INHALATION RT-QID PRN 03/02/19 04/03/21 History Ergocalciferol [Vitamin D2 50,000 unit PO Q7D 03/02/19 04/03/21 History (DRISDOL)] Febuxostat [Uloric] 80 mg PO DAILY 03/02/19 04/03/21 History Fenofibrate Nanocrystallized 145 mg PO DAILY 03/02/19 04/03/21 History [Tricor] Hydrocodone/Acetaminophen [[place] 1 tab PO Q6H PRN 03/02/19 04/03/21 History 10-325] Metoprolol Succinate [Toprol XL] 50 mg PO BID 03/02/19 04/03/21 History Omeprazole 20 mg PO DAILY 03/02/19 04/03/21 History Simvastatin [Zocor] 20 mg PO DAILY 03/02/19 04/03/21 History Furosemide [Lasix] 40 mg PO BID@0900,1600 #60 tab 03/11/19 04/03/21 Rx Latanoprost/Pf [Latanoprost 0.005% 1 drop BOTH EYES HS 02/12/21 04/03/21 History Eye Drop] Apixaban [Eliquis] 5 mg PO BID tab 03/06/21 04/03/21 Rx Diltiazem Oral [Cardizem*] 60 mg PO TID tab 03/06/21 04/03/21 Rx Insulin Glargine,Hum.rec.anlog 25 unit SQ QAM #0 03/06/21 04/03/21 Rx [Lantus Solostar] Magnesium Oxide [Mag-Ox] 400 mg PO BID tab 03/06/21 04/03/21 Rx metOLazone [Zaroxolyn] 5 mg PO DAILY tab 03/06/21 04/03/21 Rx guaiFENesin [Mucinex] 600 mg PO DAILY 04/03/21 04/03/21 History Allergies Allergy/AdvReac Type Severity Reaction Status Date / Time allopurinol Allergy Rash/Hives Verified 04/03/21 13:24 Physical Exam Vitals: Vital Signs Temp Pulse Pulse Resp BP BP Pulse Ox 04/04/21 04:00 97.8 F 77 16 109/63 96 04/04/21 00:00 98.3 F 92 18 120/63 92 L 04/03/21 19:37 97.9 F 78 18 135/76 94 L 04/03/21 18:52 18 04/03/21 18:45 98.2 F 90 18 133/75 93 L 04/03/21 15:33 98.5 F 74 18 114/60 93 L 04/03/21 15:00 98 F 80 16 134/73 96 04/03/21 14:10 74 18 114/60 93 L 04/03/21 12:58 73 18 107/72 92 L 04/03/21 12:31 98.5 F 100 16 91/58 95 Intake and Output 04/03/21 04/04/21 04/04/21 22:59 06:59 14:59 Intake Total 240 Output Total 301 300 Balance -301 -300 240 Intake: Oral 240 Output: Urine 301 Stool 300 Other: Voiding Method Urinal Urinal # Voids 220 3 Weight 102.058 kg Results - Lab Results Most recent lab results Calcium 9.3 mg/dL (8.4-10.2) 04/04/21 08:10 Magnesium 1.6 mg/dL (1.6-2.3) 04/04/21 08:10 04/04/21 08:10 04/04/21 08:10 Assessment and Plan Plan: Assessment: 1. Acute kidney injury mostly prerenal secondary to cardiorenal syndrome. 3.15 today. Ultrasound from January 2021 revealed no evidence of hy dronephrosis. 2. Chronic kidney disease stage IIIB with baseline creatinine near 2 secondary to diabetic kidney disease and cardiorenal syndrome. 3. Chronic diastolic CHF with moderate mitral regurgitation and moderate to severe tricuspid regurgitation. 4. Hypokalemia from diuresis. 5. Hypomagnesemia from diuresis. 6. Diabetes mellitus. Plan: Stop metolazone. Maintain oral Lasix. Potassium being replaced. Replace magnesium as well. Avoid nephrotoxins. Continue to monitor renal function and urine output. Thank you for the consultation. I will continue to follow the patient with you during his hospital stay.
[2021-04-04 11:08] VITALS: BMI 36.3
[2021-04-04 11:48] LABS: Glucose,Whole Blood 262 mg/dL (75-99)
--- NOTE | 2021-04-04 12:18 | P.PN ---
Subjective Progress Note Date: 04/04/21 Faisal Andrade, is a 70-year-old male who was in his normal state of health, he had an outpatient blood test that revealed a potassium of 2.4 patient was contacted and was told to come to emergency room for treatment of hypokalemia patient was evaluated in the emergency room repeat potassium was 2.6 he was started on IV potassium supplements and was admitted to telemetry floor for further evaluation and treatment she consultation was requested. Patient has a known history of chronic kidney disease, he was recently admitted to [facility] with acute exacerbation of congestive heart failure and acute on chronic renal failure, at that time he was seen by cardiology and nephrology, medications were adjusted and patient was discharged home on 03/06/2021, patient did reasonably well over the last month however today he had significant hypokalemia. Clinically he denies any symptoms, there is no chest pain or shortness of breath, lower extremity edema is at baseline, creatinine level was 3.25 which is higher than his baseline around 2. On 04/04/2021 patient is alert and oriented 3. Patient's potassium 3.2 we'll replace per protocol. Creatinine and bun improving but still higher than baseline. Discussed case with nephrology services like to keep patient 24 more hours to monitor labs. At this time patient denies chest pain or shortness of breath. Patient denies any urinary burning or frequency Objective - Vital Signs Vital signs: Vital Signs Temp 97.8 F 04/04/21 11:22 Pulse 76 04/04/21 11:22 Resp 16 04/04/21 11:22 BP 115/72 04/04/21 11:22 Pulse Ox 95 04/04/21 11:22 Intake & Output 04/03/21 04/04/21 04/04/21 18:59 06:59 18:59 Intake Total 240 Output Total 300 301 Balance -300 -301 240 Weight 102.058 kg 102.058 kg Intake: Oral 240 Output: Urine 300 1 Stool 300 Other: Voiding Method Urinal # Voids 3 - Exam In general patient is alert and oriented x 3 in no distress HEENT head normocephalic and atraumatic Neck is supple no JVD no goiter no lymphadenopathy no carotid bruit Chest examination is clear to auscultation no crackles no wheezing Cardiac exam reveals regular heart sounds S1 and S2 no gallops no murmurs Abdomen is soft nontender no organomegaly with normal bowel sounds Extremity exam reveals no edema no cyanosis or clubbing Neurological examination reveals no gross focal deficits - Labs CBC & Chem 7: 04/04/21 08:10 04/04/21 08:10 Labs: Abnormal Lab Results - Last 24 Hours (Table) 04/03/21 04/03/21 04/03/21 Range/Units 12:47 17:19 17:40 Sodium (137-145) mmol/L Potassium 2.6 L* 2.7 L* (3.5-5.1) mmol/L Chloride 92 L 91 L (98-107) mmol/L Carbon Dioxide 36 H (22-30) mmol/L BUN 57 H 59 H (9-20) mg/dL Creatinine 3.25 H 3.30 H (0.66-1.25) mg/dL Glucose 138 H (74-99) mg/dL POC Glucose (mg/dL) 104 H (75-99) mg/dL AST 60 H (17-59) U/L 04/03/21 04/04/21 04/04/21 Range/Units 20:54 06:09 08:10 Sodium 135 L (137-145) mmol/L Potassium 2.8 L 3.2 L (3.5-5.1) mmol/L Chloride 94 L (98-107) mmol/L Carbon Dioxide (22-30) mmol/L BUN 56 H (9-20) mg/dL Creatinine 3.15 H (0.66-1.25) mg/dL Glucose 202 H (74-99) mg/dL POC Glucose (mg/dL) 123 H (75-99) mg/dL AST (17-59) U/L 04/04/21 Range/Units 11:46 Sodium (137-145) mmol/L Potassium (3.5-5.1) mmol/L Chloride (98-107) mmol/L Carbon Dioxide (22-30) mmol/L BUN (9-20) mg/dL Creatinine (0.66-1.25) mg/dL Glucose (74-99) mg/dL POC Glucose (mg/dL) 262 H (75-99) mg/dL AST (17-59) U/L Assessment and Plan Plan: Severe hypokalemia Acute on chronic renal failure Underlying history of chronic diastolic congestive heart failure, without evidence of exacerbation at this time Underlying history of atrial fibrillation Underlying history of gout Underlying history of asthma Underlying history of hyperlipidemia Underlying history of vitamin D deficiency Underlying history of insulin-dependent diabetes mellitus Underlying history of gastroesophageal reflux disease At this time patient will be admitted to telemetry floor, he will be given potassium supplements Continue to replace potassium per protocol. Nephrology services are following Pedro PERDOMO'keerthi per nephrology
[2021-04-04] MEDS: MAGNESIUM SULFATE-D5W PMX 1 GM in DEXTROSE/WATER 1 100ML.BAG IVPB SCH ×2 (13:41→16:20)
[2021-04-04] MEDS: INSULIN ASPART (NovoLOG) 100 UNIT/ML VIAL SQ SCH ×2 (13:53→20:53)
[2021-04-04 16:34] LABS: Glucose,Whole Blood 190 mg/dL (75-99)
[2021-04-04] MEDS: SODIUM CHLORIDE 0.9% 1,000 ML IV SCH (19:01)
[2021-04-04 20:43] LABS: Glucose,Whole Blood 235 mg/dL (75-99)
[2021-04-04] MEDS: LATANOPROST 0.005% OPHTH DROPS 2.5 ML BTL BOTH EYES SCH (21:11)
[2021-04-05] MEDS: HYDROcodone/APAP 10-325MG 1 EACH TAB PO PRN ×4 (00:07→23:06)
[2021-04-05] MEDS: CYCLOBENZAPRINE 10 MG TAB PO PRN ×2 (00:07→23:06)
[2021-04-05 06:09] LABS: Glucose,Whole Blood 117 mg/dL (75-99)
[2021-04-05] MEDS: INSULIN ASPART (NovoLOG) 100 UNIT/ML VIAL SQ SCH ×4 (06:20→21:20)
[2021-04-05] MEDS: PANTOPRAZOLE 40 MG TABLET PO SCH (06:25)
[2021-04-05] MEDS: glipiZIDE 5 MG TAB PO SCH ×2 (06:26→17:03)
[2021-04-05 08:44] VITALS: RESP 18
[2021-04-05] MEDS: ATORVASTATIN 10 MG TAB PO SCH (08:44)
[2021-04-05] MEDS: APIXABAN 5 MG TAB PO SCH ×2 (08:44→21:20)
[2021-04-05] MEDS: FUROSEMIDE 40 MG TAB PO SCH (08:45)
[2021-04-05] MEDS: DILTIAZEM ORAL 60 MG TAB PO SCH ×3 (08:45→21:20)
[2021-04-05] MEDS: FENOFIBRATE 160 MG TAB PO SCH (08:45)
[2021-04-05] MEDS: INSULIN DETEMIR (LEVEMIR) 100 UNIT/ML SYR SQ SCH (08:46)
[2021-04-05] MEDS: METOPROLOL SUCCINATE (ER) 50 MG TAB.ER.24H PO SCH ×2 (08:46→21:20)
[2021-04-05] MEDS: guaiFENesin 600 MG TABLET.ER PO SCH (08:46)
[2021-04-05] MEDS: MAGNESIUM OXIDE 400 MG TAB PO SCH ×2 (08:46→21:20)
[2021-04-05] MEDS: POTASSIUM CHLORIDE ER 20 MEQ TAB.ER PO SCH ×3 (08:47→18:12)
--- NOTE | 2021-04-05 10:27 | P.PN ---
Subjective Patient is seen in follow-up for acute kidney injury on chronic kidney disease. Good urine output. Oral intake good. Wants to go home. Vital signs are stable. General: The patient appeared well nourished and normally developed. HEENT: Head exam is unremarkable. Neck is without jugular venous distension. LUNGS: Lungs are clear to auscultation and percussion. Breath sounds decreased. HEART: Rate and Rhythm are regular. ABDOMEN: Soft, no distention. EXTREMITITES: No edema. Objective - Vital Signs Vital signs: Vital Signs Temp 97.8 F 04/05/21 08:00 Pulse 90 04/05/21 08:00 Resp 18 04/05/21 08:00 BP 127/67 04/05/21 08:00 Pulse Ox 96 04/05/21 08:00 Intake & Output 04/04/21 04/05/21 04/05/21 18:59 06:59 18:59 Intake Total 1260 480 240 Output Total 850 1140 200 Balance 410 -660 40 Weight 102.058 kg 101.8 kg Intake: Oral 1260 480 240 Output: Urine 600 140 200 Stool 250 200 Urine/Stool Mix 800 Other: Voiding Method Urinal # Voids 1 - Labs CBC & Chem 7: 04/04/21 08:10 04/04/21 08:10 Labs: Abnormal Lab Results - Last 24 Hours (Table) 04/04/21 04/04/21 04/04/21 Range/Units 11:46 16:33 20:42 POC Glucose (mg/dL) 262 H 190 H 235 H (75-99) mg/dL 04/05/21 Range/Units 06:05 POC Glucose (mg/dL) 117 H (75-99) mg/dL Assessment and Plan Plan: Assessment: 1. Acute kidney injury mostly prerenal secondary to cardiorenal syndrome. Creatinine 3.15 as of yesterday. Ultrasound from January 2021 revealed no evidence of hydronephrosis. 2. Chronic kidney disease stage IIIB with baseline creatinine near 2 secondary to diabetic kidney disease and cardiorenal syndrome. 3. Chronic diastolic CHF with moderate mitral regurgitation and moderate to severe tricuspid regurgitation. 4. Hypokalemia from diuresis. Replaced. 5. Hypomagnesemia from diuresis. Replaced. 6. Diabetes mellitus. Plan: Stop metolazone. Maintain oral Lasix - on 40 mg once daily. Avoid nephrotoxins. Continue to monitor renal function and urine output. Follow-up morning labs. Patient was advised to monitor his weight closely at home and to increase dose of Lasix to 40 mg twice daily if notices worsening of edema or greater than 3 pound weight gain. Follow-up outpatient in 1 week.
[2021-04-05 10:39] LABS: Calcium 9.3 mg/dL (8.4-10.2); Magnesium 1.9 mg/dL (1.6-2.3); Potassium 3.1 mmol/L (3.5-5.1)
[2021-04-05] MEDS ORDERED: POTASSIUM CHLORIDE ER 20 MEQ TAB.ER PO STA ×2 (11:18→23:13)
[2021-04-05 11:48] LABS: Glucose,Whole Blood 211 mg/dL (75-99)
[2021-04-05] MEDS: SODIUM CHLORIDE 0.9% 1,000 ML IV SCH (15:23)
[2021-04-05] MEDS ORDERED: Potassium Replacement Protocol 1 EACH MISC MISCELLANE PRN (16:35)
[2021-04-05 16:53] LABS: Glucose,Whole Blood 217 mg/dL (75-99)
[2021-04-05 18:55] LABS: Hemoglobin A1C 7.2 % (4.0-6.0)
[2021-04-05 20:09] LABS: Glucose,Whole Blood 173 mg/dL (75-99)
[2021-04-05] MEDS: LATANOPROST 0.005% OPHTH DROPS 2.5 ML BTL BOTH EYES SCH (21:20)
[2021-04-06 05:32] VITALS: BP 155/83; PULSE 74; TEMP 98
[2021-04-06 06:42] LABS: Calcium 9.3 mg/dL (8.4-10.2); Potassium 3.5 mmol/L (3.5-5.1)
[2021-04-06 07:21] LABS: Glucose,Whole Blood 159 mg/dL (75-99)
[2021-04-06] MEDS: PANTOPRAZOLE 40 MG TABLET PO SCH (08:10)
[2021-04-06] MEDS: FUROSEMIDE 40 MG TAB PO SCH (08:10)
[2021-04-06] MEDS: ATORVASTATIN 10 MG TAB PO SCH (08:10)
[2021-04-06] MEDS: METOPROLOL SUCCINATE (ER) 50 MG TAB.ER.24H PO SCH (08:11)
[2021-04-06] MEDS: INSULIN ASPART (NovoLOG) 100 UNIT/ML VIAL SQ SCH ×2 (08:11→12:41)
[2021-04-06] MEDS: APIXABAN 5 MG TAB PO SCH (08:11)
[2021-04-06] MEDS: POTASSIUM CHLORIDE ER 20 MEQ TAB.ER PO SCH ×3 (08:11→12:41)
[2021-04-06] MEDS: MAGNESIUM OXIDE 400 MG TAB PO SCH (08:11)
[2021-04-06] MEDS: HYDROcodone/APAP 10-325MG 1 EACH TAB PO PRN (08:12)
[2021-04-06] MEDS ORDERED: POTASSIUM CHLORIDE ER 20 MEQ TAB.ER PO SCH (09:00)
[2021-04-06] MEDS ORDERED: ERGOCALCIFEROL 1,250 MCG (50,000 IU) CAPSULE PO SCH (09:00)
[2021-04-06] MEDS: guaiFENesin 600 MG TABLET.ER PO SCH (09:59)
[2021-04-06] MEDS: glipiZIDE 5 MG TAB PO SCH (09:59)
[2021-04-06] MEDS: FENOFIBRATE 160 MG TAB PO SCH (09:59)
[2021-04-06] MEDS: DILTIAZEM ORAL 60 MG TAB PO SCH (09:59)
[2021-04-06] MEDS: INSULIN DETEMIR (LEVEMIR) 100 UNIT/ML SYR SQ SCH (10:05)
--- NOTE | 2021-04-06 11:02 | P.DS ---
Providers Date of admission: 04/05/21 08:04 Expected date of discharge: 04/06/21 Attending physician: Navdeep Rayo Consults: 04/03/21 16:59 Consult Physician Routine Consulting Provider: Kate Terrazas Consult Reason/Comments: Hypokalemia Do you want consulting provider notified?: Yes Primary care physician: Navdeep Girma [facility] Course: Discharge diagnosis Severe hypokalemia Acute on chronic renal failure Underlying history of chronic diastolic congestive heart failure, without evidence of exacerbation at this time Underlying history of atrial fibrillation Underlying history of gout Underlying history of asthma Underlying history of hyperlipidemia Underlying history of vitamin D deficiency Underlying history of insulin-dependent diabetes mellitus Underlying history of gastroesophageal reflux disease Hospital course Faisal Andrade, is a 70-year-old male who was in his normal state of health, he had an outpatient blood test that revealed a potassium of 2.4 patient was contacted and was told to come to emergency room for treatment of hypokalemia patient was evaluated in the emergency room repeat potassium was 2.6 he was started on IV potassium supplements and was admitted to telemetry floor for further evaluation and treatment she consultation was requested. Patient has a known history of chronic kidney disease, he was recently admitted to [facility] with acute exacerbation of congestive heart failure and acute on chronic renal failure, at that time he was seen by cardiology and nephrology, medications were adjusted and patient was discharged home on 03/06/2021, patient did reasonably well over the last month however today he had significant hypokalemia. Clinically he denies any symptoms, there is no chest pain or shortness of breath, lower extremity edema is at baseline, creatinine level was 3.25 which is higher than his baseline around 2. On 04/04/2021 patient is alert and oriented 3. Patient's potassium 3.2 we'll replace per protocol. Creatinine and bun improving but still higher than baseline. Discussed case with nephrology services like to keep patient 24 more hours to monitor labs. At this time patient denies chest pain or shortness of breath. Patient denies any urinary burning or frequency On 04/06/2021 patient is alert and oriented 3. Potassium today 3.5 creatinine 2.69 and bun 52. Patient cleared for discharge from nephrology standpoint. Discussed case with Dr. Atkinson with number nephrology services. Recommend patient be discharged on Lasix 40 mg daily and patient educated to increase to twice a day if weight gain noted. Metolazone DC'd. Patient also DC'd on potassium 10 mEq daily. Potassium will be replaced prior to discharge. Patient to follow-up with Dr. Dr. Rayo and nephrology services repeat labs next week Patient Condition at Discharge: Stable Plan - Discharge Summary Discharge Rx Participant: No New Discharge Prescriptions: New Potassium Chloride ER [K-Dur 10] 10 meq PO DAILY 30 Days #30 tab Furosemide [Lasix] 40 mg PO DAILY 30 Days #30 tab Continue Cyclobenzaprine [Flexeril] 10 mg PO HS PRN PRN Reason: Muscle Pain glipiZIDE [Glucotrol] 5 mg PO AC-BID tab Febuxostat [Uloric] 80 mg PO DAILY Simvastatin [Zocor] 20 mg PO DAILY Fenofibrate Nanocrystallized [Tricor] 145 mg PO DAILY Omeprazole 20 mg PO DAILY Albuterol Sulfate [Proventil Hfa] 2 puff INHALATION RT-QID PRN PRN Reason: Shortness Of Breath Hydrocodone/Acetaminophen [[place] 10-325] 1 tab PO Q6H PRN PRN Reason: Pain Metoprolol Succinate [Toprol XL] 50 mg PO BID Ergocalciferol [Vitamin D2 (ISDTORY)] 50,000 unit PO Q7D Latanoprost/Pf [Latanoprost 0.005% Eye Drop] 1 drop BOTH EYES HS Magnesium Oxide [Mag-Ox] 400 mg PO BID tab guaiFENesin [Mucinex] 600 mg PO DAILY Diltiazem Oral [Cardizem*] 60 mg PO TID tab Apixaban [Eliquis] 5 mg PO BID tab Insulin Glargine,Hum.rec.anlog [Lantus Solostar] 25 unit SQ QAM #0 Discontinued Furosemide [Lasix] 40 mg PO BID@0900,1600 #60 tab metOLazone [Zaroxolyn] 5 mg PO DAILY tab Discharge Medication List Cyclobenzaprine [Flexeril] 10 mg PO HS PRN 01/09/15 [History] glipiZIDE [Glucotrol] 5 mg PO AC-BID tab 02/13/15 [Rx] Albuterol Sulfate [Proventil Hfa] 2 puff INHALATION RT-QID PRN 03/02/19 [History] Ergocalciferol [Vitamin D2 (DRISDOL)] 50,000 unit PO Q7D 03/02/19 [History] Febuxostat [Uloric] 80 mg PO DAILY 03/02/19 [History] Fenofibrate Nanocrystallized [Tricor] 145 mg PO DAILY 03/02/19 [History] Hydrocodone/Acetaminophen [[place] 10-325] 1 tab PO Q6H PRN 03/02/19 [History] Metoprolol Succinate [Toprol XL] 50 mg PO BID 03/02/19 [History] Omeprazole 20 mg PO DAILY 03/02/19 [History] Simvastatin [Zocor] 20 mg PO DAILY 03/02/19 [History] Latanoprost/Pf [Latanoprost 0.005% Eye Drop] 1 drop BOTH EYES HS 02/12/21 [History] Apixaban [Eliquis] 5 mg PO BID tab 03/06/21 [Rx] Diltiazem Oral [Cardizem*] 60 mg PO TID tab 03/06/21 [Rx] Insulin Glargine,Hum.rec.anlog [Lantus Solostar] 25 unit SQ QAM #0 03/06/21 [Rx] Magnesium Oxide [Mag-Ox] 400 mg PO BID tab 03/06/21 [Rx] guaiFENesin [Mucinex] 600 mg PO DAILY 04/03/21 [History] Furosemide [Lasix] 40 mg PO DAILY 30 Days #30 tab 04/06/21 [Rx] Potassium Chloride ER [K-Dur 10] 10 meq PO DAILY 30 Days #30 tab 04/06/21 [Rx] Follow up Appointment(s)/Referral(s): Navdeep Rayo MD [Primary Care Provider] - 1-2 days Reno Atkinson DO [STAFF PHYSICIAN] - 1 Week Ambulatory/Diagnostic Orders: Basic Metabolic Panel [LAB.AMB] Location: None Selected Activity/Diet/Wound Care/Special Instructions: Activity as tolerated Heart healthy diet Discharge Disposition: HOME SELF-CARE
--- NOTE | 2021-04-06 11:09 | P.PN ---
Subjective Patient is seen in follow-up for acute kidney injury on chronic kidney disease. Good urine output. Oral intake good. Wants to go home. No changes overnight. Vital signs are stable. General: The patient appeared well nourished and normally developed. HEENT: Head exam is unremarkable. Neck is without jugular venous distension. LUNGS: Lungs are clear to auscultation and percussion. Breath sounds decreased. HEART: Rate and Rhythm are regular. ABDOMEN: Soft, no distention. EXTREMITITES: No edema. Objective - Vital Signs Vital signs: Vital Signs Temp 98.0 F 04/06/21 05:31 Pulse 74 04/06/21 05:31 Resp 18 04/06/21 05:31 BP 155/83 04/06/21 05:31 Pulse Ox 92 L 04/06/21 05:31 Intake & Output 04/05/21 04/06/21 04/06/21 18:59 06:59 18:59 Intake Total 720 Output Total 1550 1150 Balance -830 -1150 Weight 101.2 kg Intake: Oral 720 Output: Urine 1025 750 Stool 525 400 Other: Voiding Method Urinal # Voids 1 1 - Labs CBC & Chem 7: 04/04/21 08:10 04/06/21 06:02 Labs: Abnormal Lab Results - Last 24 Hours (Table) 04/05/21 04/05/21 04/05/21 Range/Units 09:13 11:47 15:51 Potassium 3.3 L (3.5-5.1) mmol/L BUN (9-20) mg/dL Creatinine (0.66-1.25) mg/dL Glucose (74-99) mg/dL POC Glucose (mg/dL) 211 H (75-99) mg/dL Hemoglobin A1c 7.2 H (4.0-6.0) % 04/05/21 04/05/21 04/06/21 Range/Units 16:45 20:04 06:02 Potassium (3.5-5.1) mmol/L BUN 52 H (9-20) mg/dL Creatinine 2.69 H (0.66-1.25) mg/dL Glucose 149 H (74-99) mg/dL POC Glucose (mg/dL) 217 H 173 H (75-99) mg/dL Hemoglobin A1c (4.0-6.0) % 04/06/21 Range/Units 07:19 Potassium (3.5-5.1) mmol/L BUN (9-20) mg/dL Creatinine (0.66-1.25) mg/dL Glucose (74-99) mg/dL POC Glucose (mg/dL) 159 H (75-99) mg/dL Hemoglobin A1c (4.0-6.0) % Assessment and Plan Plan: Assessment: 1. Acute kidney injury mostly prerenal secondary to cardiorenal syndrome. Renal function improved since admission. Creatinine stable at 2.69 today. Ultrasound from January 2021 revealed no evidence of hydronephrosis. 2. Chronic kidney disease stage IIIB with baseline creatinine near 2 secondary to diabetic kidney disease and cardiorenal syndrome. 3. Chronic diastolic CHF with moderate mitral regurgitation and moderate to severe tricuspid regurgitation. 4. Hypokalemia from diuresis. Replaced. 5. Hypomagnesemia from diuresis. Replaced. Improved. 6. Diabetes mellitus. Plan: Maintain oral Lasix. Replace potassium. Maintain 10 mEq of potassium supplement daily upon discharge. Avoid nephrotoxins. Continue to monitor renal function and urine output. Patient was advised to monitor his weight closely at home and to increase dose of Lasix to 40 mg twice daily if notices worsening of edema or greater than 3 pound weight gain. Follow-up outpatient in 1 week. Repeat BMP and magnesium level 2-3 days postdischarge. Case discussed with the primary team.
[2021-04-06 11:36] LABS: Glucose,Whole Blood 213 mg/dL (75-99)
== END 2021-04-06 12:45 | disposition home or self-care (01) | DRG 641 ==
LOC: EC 12:27 → 6NMEDSUR 13:49 → 3SCARD 15:26 → OBSVTOIN 04-05 08:04 → 5NMEDONC 04-06 05:25
PROVIDERS: ADMIT Internal Medicine; ATTEND Internal Medicine
DX: E87.6 Hypokalemia (principal); I13.0 Hypertensive heart and chronic kidney disease with heart failure and stage 1 through stage 4 chronic kidney disease, or unspecified chronic kidney disease; N17.9 Acute kidney failure, unspecified; I50.32 Chronic diastolic (congestive) heart failure; Z20.822 Contact with and (suspected) exposure to COVID-19; E11.22 Type 2 diabetes mellitus with diabetic chronic kidney disease; E78.5 Hyperlipidemia, unspecified; E83.42 Hypomagnesemia; Z79.01 Long term (current) use of anticoagulants; N18.32 Chronic kidney disease, stage 3b; J45.909 Unspecified asthma, uncomplicated; I48.91 Unspecified atrial fibrillation; I25.2 Old myocardial infarction; I08.3 Combined rheumatic disorders of mitral, aortic and tricuspid valves; F32.9 Major depressive disorder, single episode, unspecified; Z79.4 Long term (current) use of insulin; Z79.899 Other long term (current) drug therapy; Z86.73 Personal history of transient ischemic attack (TIA), and cerebral infarction without residual deficits; Z95.2 Presence of prosthetic heart valve; E55.9 Vitamin D deficiency, unspecified; G47.30 Sleep apnea, unspecified; G62.9 Polyneuropathy, unspecified; K21.9 Gastro-esophageal reflux disease without esophagitis
CPT/HCPCS: 36415; 80048; 80053; 83036; 83735; 84132; 85025; 85027; 87635; 93005; 94640; 94660; 96361; 99285

== ENCOUNTER 2021-05-01 | Day surgery (SDC) | payer MEDICARE | END 2021-05-01 09:34 | disposition home or self-care (01) | DX: I48.91 Unspecified atrial fibrillation (principal); E78.5 Hyperlipidemia, unspecified; I10 Essential (primary) hypertension; E11.9 Type 2 diabetes mellitus without complications; I08.3 Combined rheumatic disorders of mitral, aortic and tricuspid valves; Z95.2 Presence of prosthetic heart valve; I65.23 Occlusion and stenosis of bilateral carotid arteries; Z79.899 Other long term (current) drug therapy; I25.2 Old myocardial infarction; Z86.73 Personal history of transient ischemic attack (TIA), and cerebral infarction without residual deficits; N28.9 Disorder of kidney and ureter, unspecified; G47.33 Obstructive sleep apnea (adult) (pediatric); Z85.038 Personal history of other malignant neoplasm of large intestine; Z88.8 Allergy status to other drugs, medicaments and biological substances | CPT/HCPCS: 93312; 93320; 93325; 92960; J2704 ==

== ENCOUNTER 2022-09-04 14:18 | Inpatient (IN) | payer MEDICARE ==
[2022-09-04] MEDS ORDERED: FUROSEMIDE 10 MG/ML 4 ML VIAL IV STA (14:35)
[2022-09-04 15:17] LABS: Basophils % (A) 0 %; Eosinophils % (A) 0 %; HGB 13.7 gm/dL (13.0-17.5); Hypochromasia Slight; Lymphocytes # (A) 0.5 k/uL (1.0-4.8); Lymphocytes % (A) 5 %; MCH 28.9 pg (25.0-35.0); MCHC 32.5 g/dL (31.0-37.0); Monocytes # (A) 0.5 k/uL (0-1.0); Monocytes % (A) 5 %; Neutrophils # (A) 8.8 k/uL (1.3-7.7); Neutrophils % (A) 88 %; Platelet Count 200 k/uL (150-450); RBC 4.73 m/uL (4.30-5.90); RDW 14.6 % (11.5-15.5); WBC 9.9 k/uL (3.8-10.6)
[2022-09-04 15:18] LABS: Albumin 4.4 g/dL (3.5-5.0); Calcium 9.2 mg/dL (8.4-10.2); Magnesium 2.2 mg/dL (1.6-2.3); Potassium 4.6 mmol/L (3.5-5.1); Total Protein 7.2 g/dL (6.3-8.2)
[2022-09-04 15:20] LABS: MCV 88.8 fL (80.0-100.0)
[2022-09-04 15:26] LABS: INR 1.2 (<1.2); Partial Thromboplastin Time 31.1 sec (22.0-30.0); Prothrombin Time 12.4 sec (9.0-12.0)
--- NOTE | 2022-09-04 15:29 | XR ---
EXAMINATION TYPE: XR chest 1V portable DATE OF EXAM: 09/04/2022 HISTORY: Shortness of breath. COMPARISON: 03/05/2021 TECHNIQUE: Single view of the chest is submitted. FINDINGS: Demonstrated are scattered senescent parenchymal change. There is cardiomegaly with pulmonary venous congestion and a right lower lobe infiltrate as well as s mall effusions. Findings are likely secondary to underlying congestive failure although infiltrates o f other etiology not excluded. Correlate clinically. Hilar and mediastinal structures are within normal limits. Degenerative changes are seen of the dorsal spine. IMPRESSION: 1. CHF and/or underlying pneumonia.
--- NOTE | 2022-09-04 15:35 | ED ---
General Adult HPI - General Chief complaint: Shortness of Breath Stated complaint: TENZIN Time Seen by Provider: 09/04/22 14:20 Source: patient, EMS, RN notes reviewed, old records reviewed Mode of arrival: EMS Limitations: no limitations - History of Present Illness Initial comments: This is a 71-year-old male who is who presents emergency Department with a past medical history significant for congestive heart failure. Patient states he ran out of his Lasix and his sister's company wouldn't give him any more pills because they stated that he ran out of them early. Patient states since then the last 2 or 3 days he's been having worsening difficulty breathing and any exertion even walking 5 feet makes him extremely dyspneic. Patient denies chest pain or palpitations. Patient denies fever chills or cough or patient denies lightheadedness or dizziness. Patient denies any headache patient denies numbness weakness. Patient denies abdominal pain patient denies nausea vomiting diarrhea. Patient states he has had an increase in edema in his legs bilaterally. EMS but the patient on CPAP and he felt considerably better on route to the hospital. - Related Data Home Medications Medication Instructions Recorded Confirmed Cyclobenzaprine [Flexeril] 10 mg PO HS PRN 01/09/15 05/01/21 Albuterol Sulfate [Proventil Hfa] 2 puff INHALATION RT-QID PRN 03/02/19 05/01/21 Ergocalciferol [Vitamin D2 50,000 unit PO Q7D 03/02/19 05/01/21 (DRISDOL)] Febuxostat [Uloric] 80 mg PO DAILY 03/02/19 05/01/21 Fenofibrate Nanocrystallized 145 mg PO DAILY 03/02/19 05/01/21 [Tricor] Hydrocodone/Acetaminophen [Corn 1 tab PO Q6H PRN 03/02/19 05/01/21 10-325] Metoprolol Succinate [Toprol XL] 50 mg PO BID 03/02/19 05/01/21 Omeprazole 20 mg PO DAILY 03/02/19 05/01/21 Simvastatin [Zocor] 20 mg PO DAILY 03/02/19 05/01/21 Latanoprost/Pf [Latanoprost 0.005% 1 drop BOTH EYES HS 02/12/21 05/01/21 Eye Drop] guaiFENesin [Mucinex] 600 mg PO DAILY 04/03/21 05/01/21 Insulin Glargine,Hum.rec.anlog 25 unit SQ HS 04/25/21 05/01/21 [Lantus Solostar Pen] Previous Rx's Medication Instructions Recorded glipiZIDE [Glucotrol] 5 mg PO AC-BID tab 02/13/15 Apixaban [Eliquis] 5 mg PO BID tab 03/06/21 Diltiazem Oral [Cardizem*] 60 mg PO TID tab 03/06/21 Magnesium Oxide [Mag-Ox] 400 mg PO BID tab 03/06/21 Furosemide [Lasix] 40 mg PO DAILY 30 Days #30 tab 04/06/21 Potassium Chloride ER [K-Dur 10] 10 meq PO DAILY 30 Days #30 tab 04/06/21 Allergies Allergy/AdvReac Type Severity Reaction Status Date / Time allopurinol Allergy Rash/Hives Verified 09/04/22 14:25 Review of Systems ROS Statement: Those systems with pertinent positive or pertinent negative responses have been documented in the HPI. ROS Other: All systems not noted in ROS Statement are negative. Past Medical History Past Medical History: Atrial Fibrillation, Cancer, Chest Pain / Angina, CVA/TIA, Diabetes Mellitus, Hyperlipidemia, Hypertension, Myocardial Infarction ([place]), Renal Disease, Sleep Apnea/CPAP/BIPAP, Thyroid Disorder Additional Past Medical History / Comment(s): [place] X2, LAST 06/2013. AORTIC STENOSIS. 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 HX KIDNEY FAILURE IN PAST-Stage 3 kidney disease, HX GOUT. NEUROPATHY KIM FEET. USES C-PAP. OVERACTIVE THYROID HX. EDEMA IN LEGS has improved, HX BOWEL RESECTION D/T CA, HAS ILEOSTOMY, chronic I RRITATION AT SITE, recent admission for low potassium per pt, uses oxygen @2l prn Last Myocardial Infarction Date:: 02/2013 History of Any Multi-Drug Resistant Organisms: None Reported Past Surgical History: Bowel Resection, Cardiac Valve Replacement, Heart Catheterization, Hernia Repair, Orthopedic Surgery Additional Past Surgical History / Comment(s): CARDIAC CATH X3. LT SHOULDER SURG. BOWEL SURG,. aortic valve replacement 02/06/15 Past Anesthesia/Blood Transfusion Reactions: No Reported Reaction Past Psychological History: Depression Smoking Status: Never smoker - Past Family History Mother Family Medical History: Coronary Artery Disease (CAD), Hypertension Father Family Medical History: No Reported History Additional Family Medical History / Comment(s): heart valve disorders General Exam - General Exam Comments Initial Comments: GENERAL: Patient is well-developed and well-nourished. Patient is nontoxic and well- hydrated and is in moderate distress. ENT: Neck is soft and supple. No significant lymphadenopathy is noted. Oropharynx is clear. Moist mucous membranes. Neck has full range of motion without eliciting any pain. EYES: The sclera were anicteric and conjunctiva were pink and moist. Extraocular movements were intact and pupils were equal round and reactive to light. Eyelids were unremarkable. PULMONARY: Patient is crackles in both bases. CARDIOVASCULAR: There is a regular rate and rhythm without any murmurs gallops or rubs. ABDOMEN: Soft and nontender with normal bowel sounds. SKIN: Skin is clear with no lesions or rashes and otherwise unremarkable. NEUROLOGIC: Patient is alert and oriented x3. Cranial nerves II through XII are grossly intact. Motor and sensory are also intact. Normal speech, volume and content. Symmetrical smile. MUSCULOSKELETAL: Normal extremities with adequate strength and full range of motion. 2+ edema bilaterally LYMPHATICS: No significant lymphadenopathy is noted PSYCHIATRIC: Normal psychiatric evaluation. Limitations: no limitations Course Vital Signs 09/04/22 09/04/22 09/04/22 14:22 14:38 14:39 Temperature 97.9 F Pulse Rate 90 Respiratory 54 H Rate Blood Pressure 157/97 O2 Sat by Pulse 92 L Oximetry Fraction of 30 30 Inspired Oxygen (FIO2) Medical Decision Making - Medical Decision Making I interpreted EKG EKG shows sinus rhythm at 84 bpm OK interval is 275 QRSs 165 Q-T intervals 427 QTC is 468. Patient's EKG shows a right bundle branch block. I interpret the chest x-ray shows acute pulmonary edema. I gave the patient Lasix. I also gave the patient Nitropaste to reduce the preload. Patient continued to be on BiPAP throughout the ED stay. I spoke with Dr. Rayo he agreed to admit the patient admitted the patient wrote admitting orders. I continued Lasix Nitropaste on the floor. - Lab Data Result diagrams: 09/04/22 14:45 09/04/22 14:45 Lab Results 09/04/22 09/04/22 09/04/22 Range/Units 14:45 14:45 14:45 WBC 9.9 (3.8-10.6) k/uL RBC 4.73 (4.30-5.90) m/uL Hgb 13.7 (13.0-17.5) gm/dL Hct 42.0 (39.0-53.0) % MCV 88.8 D (80.0-100.0) fL MCH 28.9 (25.0-35.0) pg MCHC 32.5 (31.0-37.0) g/dL RDW 14.6 (11.5-15.5) % Plt Count 200 (150-450) k/uL MPV 9.0 Neutrophils % 88 % Lymphocytes % 5 % Monocytes % 5 % Eosinophils % 0 % Basophils % 0 % Neutrophils # 8.8 H (1.3-7.7) k/uL Lymphocytes # 0.5 L (1.0-4.8) k/uL Monocytes # 0.5 (0-1.0) k/uL Eosinophils # 0.0 (0-0.7) k/uL Basophils # 0.0 (0-0.2) k/uL Hypochromasia Slight PT 12.4 H (9.0-12.0) sec INR 1.2 H (<1.2) APTT 31.1 H (22.0-30.0) sec Sodium 140 (137-145) mmol/L Potassium 4.6 (3.5-5.1) mmol/L Chloride 106 (98-107) mmol/L Carbon Dioxide 25 (22-30) mmol/L Anion Gap 9 mmol/L BUN 41 H (9-20) mg/dL Creatinine 2.29 H (0.66-1.25) mg/dL Est GFR (CKD-EPI)AfAm 33 (>60 ml/min/1.73 sqM) Est GFR (CKD-EPI)NonAf 28 (>60 ml/min/1.73 sqM) Glucose 83 (74-99) mg/dL Plasma Lactic Acid Huber (0.7-2.0) mmol/L Calcium 9.2 (8.4-10.2) mg/dL Magnesium 2.2 (1.6-2.3) mg/dL Total Bilirubin 1.0 (0.2-1.3) mg/dL AST 31 (17-59) U/L ALT 17 (4-49) U/L Alkaline Phosphatase 57 (38-126) U/L Troponin I (0.000-0.034) ng/mL Total Protein 7.2 (6.3-8.2) g/dL Albumin 4.4 (3.5-5.0) g/dL 09/04/22 09/04/22 Range/Units 14:45 14:45 WBC (3.8-10.6) k/uL RBC (4.30-5.90) m/uL Hgb (13.0-17.5) gm/dL Hct (39.0-53.0) % MCV (80.0-100.0) fL MCH (25.0-35.0) pg MCHC (31.0-37.0) g/dL RDW (11.5-15.5) % Plt Count (150-450) k/uL MPV Neutrophils % % Lymphocytes % % Monocytes % % Eosinophils % % Basophils % % Neutrophils # (1.3-7.7) k/uL Lymphocytes # (1.0-4.8) k/uL Monocytes # (0-1.0) k/uL Eosinophils # (0-0.7) k/uL Basophils # (0-0.2) k/uL Hypochromasia PT (9.0-12.0) sec INR (<1.2) APTT (22.0-30.0) sec Sodium (137-145) mmol/L Potassium (3.5-5.1) mmol/L Chloride (98-107) mmol/L Carbon Dioxide (22-30) mmol/L Anion Gap mmol/L BUN (9-20) mg/dL Creatinine (0.66-1.25) mg/dL Est GFR (CKD-EPI)AfAm (>60 ml/min/1.73 sqM) Est GFR (CKD-EPI)NonAf (>60 ml/min/1.73 sqM) Glucose (74-99) mg/dL Plasma Lactic Acid Huber 1.6 (0.7-2.0) mmol/L Calcium (8.4-10.2) mg/dL Magnesium (1.6-2.3) mg/dL Total Bilirubin (0.2-1.3) mg/dL AST (17-59) U/L ALT (4-49) U/L Alkaline Phosphatase (38-126) U/L Troponin I 0.074 H* (0.000-0.034) ng/mL Total Protein (6.3-8.2) g/dL Albumin (3.5-5.0) g/dL Critical Care Time Critical Care Time: Yes Total Critical Care Time: 35 Disposition Clinical Impression: Acute pulmonary edema Disposition: ADMITTED IP TO THIS HOSP Referrals: Navdeep Rayo MD [Primary Care Provider] - 1-2 days Time of Disposition: 15:47
[2022-09-04] MEDS ORDERED: ENALAPRILAT 1.25 MG/ML 1 ML VIAL IVP STA (15:40)
[2022-09-04] MEDS ORDERED: NITROGLYCERIN OINT 1 INCH/GM PACKET TOPICAL STA (15:41)
[2022-09-04 18:39] LABS: Glucose,Whole Blood 63 mg/dL (70-110)
[2022-09-04 18:57] LABS: Glucose,Whole Blood 85 mg/dL (70-110)
[2022-09-04] MEDS: NITROGLYCERIN OINT 1 INCH/GM PACKET TOPICAL SCH ×2 (18:58→22:29)
[2022-09-04 20:08] LABS: Glucose,Whole Blood 167 mg/dL (70-110)
[2022-09-04] MEDS: LATANOPROST 0.005% OPHTH DROPS 2.5 ML BTL BOTH EYES SCH (20:33)
[2022-09-04] MEDS: AZITHROMYCIN 500 MG in SODIUM CHLORIDE 0.9% 250 ML IVPB SCH (20:41)
[2022-09-04] MEDS ORDERED: FUROSEMIDE 40 MG TAB PO SCH (21:00)
[2022-09-04] MEDS: DILTIAZEM ORAL 60 MG TAB PO SCH (22:29)
[2022-09-04] MEDS: APIXABAN 5 MG TAB PO SCH (22:29)
[2022-09-04] MEDS: FUROSEMIDE 10 MG/ML 4 ML VIAL IV SCH (22:29)
[2022-09-04] MEDS: HYDROcodone/APAP 10-325MG 1 EACH TAB PO SCH (22:29)
[2022-09-04] MEDS: CYCLOBENZAPRINE 10 MG TAB PO SCH (22:29)
[2022-09-04] MEDS: MAGNESIUM OXIDE 400 MG TAB PO SCH (22:29)
[2022-09-04] MEDS: METOPROLOL SUCCINATE (ER) 50 MG TAB.ER.24H PO SCH (22:29)
[2022-09-05 05:52] LABS: Glucose,Whole Blood 84 mg/dL (70-110)
[2022-09-05] MEDS: glipiZIDE 5 MG TAB PO SCH ×2 (06:51→17:22)
[2022-09-05] MEDS: PANTOPRAZOLE 40 MG TABLET PO SCH (06:51)
[2022-09-05] MEDS: FENOFIBRATE 160 MG TAB PO SCH (09:42)
[2022-09-05] MEDS: FUROSEMIDE 10 MG/ML 4 ML VIAL IV SCH ×3 (09:42→22:47)
[2022-09-05] MEDS: PRAVASTATIN SODIUM 20 MG TAB PO SCH (09:42)
[2022-09-05] MEDS: DILTIAZEM ORAL 60 MG TAB PO SCH ×3 (09:42→22:47)
[2022-09-05] MEDS: MAGNESIUM OXIDE 400 MG TAB PO SCH ×2 (09:42→22:49)
[2022-09-05] MEDS: POTASSIUM CHLORIDE ER 10 MEQ TAB.ER.PRT PO SCH (09:42)
[2022-09-05] MEDS: METOPROLOL SUCCINATE (ER) 50 MG TAB.ER.24H PO SCH ×2 (09:42→22:49)
[2022-09-05] MEDS: HYDROcodone/APAP 10-325MG 1 EACH TAB PO SCH ×3 (09:43→22:47)
[2022-09-05] MEDS: NITROGLYCERIN OINT 1 INCH/GM PACKET TOPICAL SCH ×4 (09:43→22:47)
[2022-09-05] MEDS: APIXABAN 5 MG TAB PO SCH ×2 (09:43→22:49)
[2022-09-05] MEDS ORDERED: DEXTROSE 50% SYRINGE 50 ML IVP PRN (10:03)
--- NOTE | 2022-09-05 10:04 | P.CRDCN ---
History of Present Illness History of present illness: HISTORY OF PRESENTING ILLNESS Patient is pleasant 71-year-old male with history of persistent atrial fibrillation status post previous DILLAN and cardioversion, prior TIA, diabetes mellitus type 2, hyperlipidemia, hypertension, chronic kidney disease, obstructive sleep apnea, neuropathy congestive heart failure who presents secondary to increased shortness breath. He states the pharmacy would not fill his Lasix and therefore had been cutting the Lasix down to 1 a day and then every other day over the last week. He has noticed some increase in lower extremity edema. He has been feeling increasing shortness of breath and therefore eventually was at doctor's appointment and feeling more short of breath and EMS was called. Chest x-ray 09/04 showed congestive heart failure with possible underlying pneumonia. He denies any fevers or chills or cough. He shows sinus rhythm with prolonged ID interval with right bundle branch block with nonspecific ST-T wave abnormalities. Creatinine 2.29 which appears as baseline with troponin 0.07 and proBNP 3300. Troponins have been chronically elevated in the past. He denies any chest pain or pressure. Previous echo 02/14 shows EF 55-60%, moderate LVH, mild aortic stenosis with prior bioprosthetic aortic valve, severe pulmonary hypertension RVSP 76, moderate to severe tricuspid regurgitation, moderate mitral regurgitation. REVIEW OF SYSTEMS At the time of my exam: CONSTITUTIONAL: Denies fever or chills. CARDIOVASCULAR: Denies chest pain, +shortness of breath, +orthopnea, no PND or palpitations. RESPIRATORY: Denies cough. GASTROINTESTINAL: Denies abdominal pain, diarrhea, constipation, nausea or vomiting. MUSCULOSKELETAL: Denies myalgias. NEUROLOGIC: Denies numbness, tingling or weakness. ENDOCRINE: Denies fatigue, weight change, polydipsia or polyurina. GENITOURINARY: Denies burning, hematuria or urgency with micturation. HEMATOLOGIC: Denies history of anemia or bleeding. PHYSICAL EXAMINATION Vital signs reviewed. CONSTITUTIONAL: No apparent distress. HEENT: Head is normocephalic. Pupils are equal, round. Sclerae anicteric. Mucous membranes of the mouth are moist. No JVD. No carotid bruit. CHEST EXAMINATION: +crackles at bases HEART EXAMINATION: Regular rate and rhythm. S1, S2 heard. No murmurs, gallops or rub. ABDOMEN: Soft, nontender. Positive bowel sounds. EXTREMITIES: 2+ peripheral pulses, +trace lower extremity edema and no calf tenderness. NEUROLOGIC EXAMINATION: Patient is awake, alert and oriented x3. ASSESSMENT 1. Acute on chronic diastolic heart failure 2. History of prior bioprosthetic. Valve replacement 3. Moderate mitral regurgitation 4. Hypertension 5. Chronic kidney disease 6. Paroxysmal atrial fibrillation currently sinus rhythm 7. Troponin elevation not indicative of acute coronary syndrome, chronically elevated secondary to chronic kidney disease PLAN Majority of presentation appears related to missing doses of Lasix. We will continue with IV diuretics and monitor response. Repeat 2-D echo to evaluate left ventricular function as well as degree of pulmonary hypertension. No current signs or symptoms consistent with acute coronary syndrome. Continue supportive care. Further recommendations to follow. Past Medical History Past Medical History: Atrial Fibrillation, Cancer, Chest Pain / Angina, CVA/TIA, Diabetes Mellitus, Hyperlipidemia, Hypertension, Myocardial Infarction ([place]), Renal Disease, Sleep Apnea/CPAP/BIPAP, Thyroid Disorder Additional Past Medical History / Comment(s): [place] X2, LAST 06/2013. AORTIC STENOSIS. 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 HX KIDNEY FAILURE IN PAST-Stage 3 kidney disease, HX GOUT. NEUROPATHY KIM FEET. USES C-PAP. OVERACTIVE THYROID HX. EDEMA IN LEGS has improved, HX BOWEL RESECTION D/T CA, HAS ILEOSTOMY, chronic IRRITATION AT SITE, recent admission for low potassium per pt, uses oxygen @2l prn Last Myocardial Infarction Date:: 02/2013 History of Any Multi-Drug Resistant Organisms: None Reported Past Surgical History: Bowel Resection, Cardiac Valve Replacement, Heart Catheterization, Hernia Repair, Orthopedic Surgery Additional Past Surgical History / Comment(s): CARDIAC CATH X3. LT SHOULDER SURG. BOWEL SURG,. aortic valve replacement 02/06/15, cataract surgery Past Anesthesia/Blood Transfusion Reactions: No Reported Reaction Past Psychological History: Depression Additional Psychological History / Comment(s): SADD. Smoking Status: Never smoker Past Alcohol Use History: Occasional Past Drug Use History: None Reported Additional Drug Use History / Comment(s): USE TEEN ONLY - Past Family History Mother Family Medical History: Coronary Artery Disease (CAD), Hypertension Father Family Medical History: No Reported History Additional Family Medical History / Comment(s): heart valve disorders Medications and Allergies Home Medications Medication Instructions Recorded Confirmed Type Cyclobenzaprine [Flexeril] 10 mg PO HS 01/09/15 09/04/22 History Febuxostat [Uloric] 80 mg PO DAILY 03/02/19 09/04/22 History Fenofibrate Nanocrystallized 145 mg PO DAILY 03/02/19 09/04/22 History [Tricor] Hydrocodone/Acetaminophen [[place] 1 tab PO TID 03/02/19 09/04/22 History 10-325] Metoprolol Succinate [Toprol XL] 50 mg PO BID 03/02/19 09/04/22 History Omeprazole 20 mg PO DAILY 03/02/19 09/04/22 History Latanoprost/Pf [Latanoprost 0.005% 1 drop BOTH EYES HS 02/12/21 09/04/22 History Eye Drop] Apixaban [Eliquis] 5 mg PO BID tab 03/06/21 09/04/22 Rx Magnesium Oxide [Mag-Ox] 400 mg PO BID tab 03/06/21 09/04/22 Rx Potassium Chloride ER [K-Dur 10] 10 meq PO DAILY 30 Days #30 tab 04/06/21 09/04/22 Rx Ergocalciferol (Vitamin D2) 1,250 mcg PO SUWE 09/04/22 09/04/22 History [Drisdol (50,000 Iu)] Furosemide [Lasix] 40 mg PO BID 09/04/22 09/04/22 History Insulin Detemir [Levemir Flextouch See Protocol SQ HS 09/04/22 09/04/22 History Pen] Pravastatin Sodium [Pravachol] 20 mg PO DAILY 09/04/22 09/04/22 History dilTIAZem HCL 60 mg PO TID 09/04/22 09/04/22 History glipiZIDE [Glucotrol] 5 mg PO BID 09/04/22 09/04/22 History Allergies Allergy/AdvReac Type Severity Reaction Status Date / Time allopurinol Allergy Rash/Hives Verified 09/04/22 16:35 Physical Exam Vitals: Vital Signs Temp Pulse Pulse Pulse Resp BP BP 09/05/22 09:40 97.4 F L 81 20 127/67 09/05/22 07:51 09/05/22 04:32 09/05/22 04:00 80 21 137/70 09/05/22 01:30 96 20 09/05/22 00:29 09/04/22 22:53 96 20 140/77 09/04/22 20:15 97.3 F L 90 18 132/62 09/04/22 20:00 90 18 09/04/22 18:45 98.6 F 96 21 170/79 09/04/22 18:06 91 20 136/88 09/04/22 16:12 91 34 H 154/84 09/04/22 14:39 09/04/22 14:38 09/04/22 14:22 97.9 F 90 54 H 157/97 Pulse Ox FiO2 09/05/22 09:40 92 L 09/05/22 07:51 94 L 28 09/05/22 04:32 30 09/05/22 04:00 96 09/05/22 01:30 09/05/22 00:29 95 30 09/04/22 22:53 95 09/04/22 20:15 94 L 09/04/22 20:00 09/04/22 18:45 94 L 09/04/22 18:06 92 L 09/04/22 16:12 94 L 09/04/22 14:39 30 09/04/22 14:38 30 09/04/22 14:22 92 L Intake and Output 09/04/22 09/05/22 09/05/22 22:59 06:59 14:59 Intake Total 222 Output Total 1650 1300 450 Balance -1650 -1078 -450 Intake: Oral 222 Output: Urine 1450 900 400 Stool 200 400 50 Other: Voiding Method Urinal Urinal # Voids 1 Weight 111.13 kg 109 kg Results 09/04/22 14:45 09/04/22 14:45 Cardiac Enzymes 09/04/22 09/04/22 Range/Units 14:45 14:45 AST 31 (17-59) U/L Troponin I 0.074 H* (0.000-0.034) ng/mL Coagulation 09/04/22 Range/Units 14:45 PT 12.4 H (9.0-12.0) sec APTT 31.1 H (22.0-30.0) sec CBC 09/04/22 Range/Units 14:45 WBC 9.9 (3.8-10.6) k/uL RBC 4.73 (4.30-5.90) m/uL Hgb 13.7 (13.0-17.5) gm/dL Hct 42.0 (39.0-53.0) % Plt Count 200 (150-450) k/uL Comprehensive Metabolic Panel 09/04/22 Range/Units 14:45 Sodium 140 (137-145) mmol/L Potassium 4.6 (3.5-5.1) mmol/L Chloride 106 (98-107) mmol/L Carbon Dioxide 25 (22-30) mmol/L BUN 41 H (9-20) mg/dL Creatinine 2.29 H (0.66-1.25) mg/dL Glucose 83 (74-99) mg/dL Calcium 9.2 (8.4-10.2) mg/dL AST 31 (17-59) U/L ALT 17 (4-49) U/L Alkaline Phosphatase 57 (38-126) U/L Total Protein 7.2 (6.3-8.2) g/dL Albumin 4.4 (3.5-5.0) g/dL Current Medications Generic Name Dose Route Start Last Admin Trade Name Freq PRN Reason Stop Dose Admin Hydrocodone Bitart/Acetaminophen 1 each 09/04/22 22:00 09/05/22 09:43 Hydrocodone/Apap 10-325mg 1 Each Tab PO 1 each TID JOSE Administration Apixaban 5 mg 09/04/22 21:00 09/05/22 09:43 Apixaban 5 Mg Tab PO 5 mg BID JOSE Administration Protocol Cyclobenzaprine HCl 10 mg 09/04/22 21:00 09/04/22 22:29 Cyclobenzaprine 10 Mg Tab PO 10 mg HS JOSE Administration Diltiazem HCl 60 mg 09/04/22 22:00 09/05/22 09:42 Diltiazem Oral 60 Mg Tab PO 60 mg TID JOSE Administration Ergocalciferol 1,250 mcg 09/08/22 09:00 Ergocalciferol 1,250 Mcg (50,000 Iu) Capsule PO SUWE [facility] Fenofibrate 160 mg 09/05/22 09:00 09/05/22 09:42 Fenofibrate 160 Mg Tab PO 160 mg DAILY JOSE Administration Furosemide 40 mg 09/05/22 00:00 09/05/22 09:42 Furosemide 10 Mg/Ml 4 Ml Vial IV 40 mg Q8H JOSE Administration Glipizide 5 mg 09/05/22 07:30 09/05/22 06:51 Glipizide 5 Mg Tab PO 5 mg AC-BID JOSE Administration Ceftriaxone Sodium 1 gm/ 50 mls @ 100 mls/hr 09/04/22 21:00 09/04/22 20:41 Sodium Chloride IVPB 100 mls/hr HS JOSE Administration Protocol Azithromycin 500 mg/ Sodium 250 mls @ 250 mls/hr 09/04/22 21:00 09/04/22 20:41 Chloride IVPB 09/06/22 21:59 250 mls/hr HS JOSE Administration Protocol Latanoprost 1 drops 09/04/22 21:00 09/04/22 20:33 Latanoprost 0.005% Ophth Drops 2.5 Ml Btl BOTH EYES Not Given HS JOSE Magnesium Oxide 400 mg 09/04/22 21:00 09/05/22 09:42 Magnesium Oxide 400 Mg Tab PO 400 mg BID JOSE Administration Metoprolol Succinate 50 mg 09/04/22 21:00 09/05/22 09:42 Metoprolol Succinate (Er) 50 Mg Tab.Er.24h PO 50 mg BID JOSE Administration Nitroglycerin 1 inch 09/04/22 18:00 09/05/22 09:43 Nitroglycerin Oint 1 Inch/Gm Packet TOPICAL 1 inch QID JOSE Administration Febuxostat [Uloric] 80 mg 09/05/22 09:00 09/05/22 09:45 80 Mg Tablet PO Not Given DAILY JOSE Pantoprazole Sodium 40 mg 09/05/22 07:30 09/05/22 06:51 Pantoprazole 40 Mg Tablet PO 40 mg AC-[id number] JOSE Administration Potassium Chloride 10 meq 09/05/22 09:00 09/05/22 09:42 Potassium Chloride Er 10 Meq Tab.Er.Prt PO 10 meq DAILY JOSE Administration Pravastatin Sodium 20 mg 09/05/22 09:00 09/05/22 09:42 Pravastatin Sodium 20 Mg Tab PO 20 mg DAILY JOSE Administration Intake and Output 09/04/22 09/05/22 09/05/22 22:59 06:59 14:59 Intake Total 222 Output Total 1650 1300 450 Balance -1650 -1078 -450 Intake: Oral 222 Output: Urine 1450 900 400 Stool 200 400 50 Other: Voiding Method Urinal Urinal # Voids 1 Weight 111.13 kg 109 kg 09/04/22 14:45 09/04/22 14:45
[2022-09-05 12:00] LABS: Glucose,Whole Blood 111 mg/dL (70-110)
--- NOTE | 2022-09-05 13:31 | P.CNPUL ---
History of Present Illness Consult date: 09/05/22 Requesting physician: Navdeep Rayo Reason for consult: dyspnea Chief complaint: Shortness of breath History of present illness: This is a 71-year-old white male with history of chronic atrial fibrillation, previous cardioversion, history of chronic kidney disease, obstructive sleep apnea, patient is normally maintained on Lasix at 40 mg by mouth twice a day. However the patient noted recently that he was getting short on Lasix, and his early refill was denied by his insurance company. Patient started cutting down on the Lasix from twice a day to once a day, and as he was noting that he will remain short before his next prescription refill, patient went down for a week to 40 mg every other day. Over the last 24 hours, patient has been noticing worsening shortness of breath, increased swelling in his lower extremities, and he got to the point that he couldn't breathe. Brought into ER, chest x-ray showed evidence of pulmonary edema and some consolidation in the right lower lobe. Patient had no symptoms to suggest pneumonia, no fever, no chills, no hemoptysis, and he had no chest pain. Patient was given diuretics in the ER, and clinically the patient stated that he is significantly better today compared to how he felt yesterday. Patient was placed on diuretics, and I was asked to see him on consultation. His BNP level was 3300. Previous echocardiogram showed pulmonary hypertension, moderate to severe tricuspid regurgitation, and moderate mitral regurgitation. His EF in the past has been noted to be 55-60%. Review of Systems CONSTITUTIONAL: No fever no chills no weight loss. CARDIOVASCULAR: As noted in HPI, patient denies any chest pain or orthopnea or PND. RESPIRATORY: Denies cough fever chills hemoptysis. GASTROINTESTINAL: Denies nausea vomiting abdominal pain melena or hematemesis MUSCULOSKELETAL: Denies any limitation range of motion denies any aches and pains NEUROLOGIC: No headache blurred vision dizziness or syncope ENDOCRINE: Denies polyuria polydipsia and polyphagia denies any cold intolerance GENITOURINARY: Denies hematuria and dysuria frequency urgency. HEMATOLOGIC: Denies history of clotting bleeding or bruising Psychiatric: Denies symptoms of depression Skin: Denies rashes Past Medical History Past Medical History: Atrial Fibrillation, Cancer, Chest Pain / Angina, CVA/TIA, Diabetes Mellitus, Hyperlipidemia, Hypertension, Myocardial Infarction ([place]), Renal Disease, Sleep Apnea/CPAP/BIPAP, Thyroid Disorder Additional Past Medical History / Comment(s): [place] X2, LAST 06/2013. AORTIC STENOSIS. 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 HX KIDNEY FAILURE IN PAST-Stage 3 kidney disease, HX GOUT. NEUROPATHY KIM FEET. USES C-PAP. OVERACTIVE THYROID HX. EDEMA IN LEGS has improved, HX BOWEL RESECTION D/T CA, HAS ILEOSTOMY, chronic IRRITATION AT SITE, recent admission for low potassium per pt, uses oxygen @2l prn Last Myocardial Infarction Date:: 02/2013 History of Any Multi-Drug Resistant Organisms: None Reported Past Surgical History: Bowel Resection, Cardiac Valve Replacement, Heart Catheterization, Hernia Repair, Orthopedic Surgery Additional Past Surgical History / Comment(s): CARDIAC CATH X3. LT SHOULDER SURG. BOWEL SURG,. aortic valve replacement 02/06/15, cataract surgery Past Anesthesia/Blood Transfusion Reactions: No Reported Reaction Past Psychological History: Depression Additional Psychological History / Comment(s): SADD. Smoking Status: Never smoker Past Alcohol Use History: Occasional Past Drug Use History: None Reported Additional Drug Use History / Comment(s): USE TEEN ONLY - Past Family History Mother Family Medical History: Coronary Artery Disease (CAD), Hypertension Father Family Medical History: No Reported History Additional Family Medical History / Comment(s): heart valve disorders Medications and Allergies Home Medications Medication Instructions Recorded Confirmed Type Cyclobenzaprine [Flexeril] 10 mg PO HS 01/09/15 09/04/22 History Febuxostat [Uloric] 80 mg PO DAILY 03/02/19 09/04/22 History Fenofibrate Nanocrystallized 145 mg PO DAILY 03/02/19 09/04/22 History [Tricor] Hydrocodone/Acetaminophen [[place] 1 tab PO TID 03/02/19 09/04/22 History 10-325] Metoprolol Succinate [Toprol XL] 50 mg PO BID 03/02/19 09/04/22 History Omeprazole 20 mg PO DAILY 03/02/19 09/04/22 History Latanoprost/Pf [Latanoprost 0.005% 1 drop BOTH EYES HS 02/12/21 09/04/22 History Eye Drop] Apixaban [Eliquis] 5 mg PO BID tab 03/06/21 09/04/22 Rx Magnesium Oxide [Mag-Ox] 400 mg PO BID tab 03/06/21 09/04/22 Rx Potassium Chloride ER [K-Dur 10] 10 meq PO DAILY 30 Days #30 tab 04/06/21 09/04/22 Rx Ergocalciferol (Vitamin D2) 1,250 mcg PO SUWE 09/04/22 09/04/22 History [Drisdol (50,000 Iu)] Furosemide [Lasix] 40 mg PO BID 09/04/22 09/04/22 History Insulin Detemir [Levemir Flextouch See Protocol SQ HS 09/04/22 09/04/22 History Pen] Pravastatin Sodium [Pravachol] 20 mg PO DAILY 09/04/22 09/04/22 History dilTIAZem HCL 60 mg PO TID 09/04/22 09/04/22 History glipiZIDE [Glucotrol] 5 mg PO BID 09/04/22 09/04/22 History Allergies Allergy/AdvReac Type Severity Reaction Status Date / Time allopurinol Allergy Rash/Hives Verified 09/04/22 16:35 Physical Exam Vitals: Vital Signs Temp Pulse Pulse Pulse Resp BP BP 09/05/22 09:40 97.4 F L 81 20 127/67 09/05/22 07:51 09/05/22 04:32 09/05/22 04:00 80 21 137/70 09/05/22 01:30 96 20 09/05/22 00:29 09/04/22 22:53 96 20 140/77 09/04/22 20:15 97.3 F L 90 18 132/62 09/04/22 20:00 90 18 09/04/22 18:45 98.6 F 96 21 170/79 09/04/22 18:06 91 20 136/88 09/04/22 16:12 91 34 H 154/84 09/04/22 14:39 09/04/22 14:38 09/04/22 14:22 97.9 F 90 54 H 157/97 Pulse Ox FiO2 09/05/22 09:40 92 L 09/05/22 07:51 94 L 28 09/05/22 04:32 30 09/05/22 04:00 96 09/05/22 01:30 09/05/22 00:29 95 30 09/04/22 22:53 95 09/04/22 20:15 94 L 09/04/22 20:00 09/04/22 18:45 94 L 09/04/22 18:06 92 L 09/04/22 16:12 94 L 09/04/22 14:39 30 09/04/22 14:38 30 09/04/22 14:22 92 L Intake and Output 09/04/22 09/05/22 09/05/22 22:59 06:59 14:59 Intake Total 222 Output Total 1650 5197 650 Balance -9985 -4403 -650 Intake: Oral 222 Output: Urine 1450 900 600 Stool 200 400 50 Other: Voiding Method Urinal Urinal Urinal # Voids 1 Weight 111.13 kg 109 kg 109 kg Physical Exam: Revealed 71-year-old white male in no distress, on 2 L nasal cannula with O2 saturation 94% Head: Atraumatic, normocephalic. HEENT:[Neck is supple.] [No neck masses.] [No thyromegaly.] [No JVD.] Chest: [Minimal fine crackles at the bases no rhonchi and no wheezes Cardiac Exam: [Normal S1 and S2, no S3 gallop, no murmur. 2/6 systolic murmur throughout the precordium.] Abdomen: [Obese, Soft, nontender, no megaly, no rebound, no guarding, normal bowel sounds.] Extremities: [No clubbing, 1+ bipedal edema no cyanosis. Good pulses bilaterally.] Neurological Exam: Alert oriented 3 [No focal neurologic deficit.] Psychiatric: Normal mood affect and normal mental status examination. Skin: No rashes. Results - Laboratory Findings CBC and BMP: 09/04/22 14:45 09/04/22 14:45 PT/INR, D-dimer PT 12.4 sec (9.0-12.0) H 09/04/22 14:45 INR 1.2 (<1.2) H 09/04/22 14:45 Abnormal lab findings: Abnormal Labs 09/04/22 09/04/22 09/04/22 14:45 14:45 14:45 Neutrophils # 8.8 H Lymphocytes # 0.5 L PT 12.4 H INR 1.2 H APTT 31.1 H BUN 41 H Creatinine 2.29 H POC Glucose (mg/dL) Troponin I Procalcitonin 09/04/22 09/04/22 09/04/22 14:45 18:37 20:05 Neutrophils # Lymphocytes # PT INR APTT BUN Creatinine POC Glucose (mg/dL) 63 L 167 H Troponin I 0.074 H* Procalcitonin 09/05/22 09/05/22 09/05/22 08:16 11:03 11:58 Neutrophils # Lymphocytes # PT INR APTT BUN Creatinine POC Glucose (mg/dL) 111 H Troponin I 0.168 H* Procalcitonin 0.24 H - Diagnostic Findings Chest x-ray: image reviewed (As noted in HPI) Assessment and Plan Assessment: Impression: Acute on chronic diastolic congestive heart failure, mostly because of noncompliance with the standard Lasix dose Chronic right lower lobe consolidation, going back to 2020, based on previous x- rays of the chest and previous CT of the chest. Patient is following up with Dr. fields may eventually have to be considered for outpatient bronchoscopy Moderate mitral valve regurgitation Chronic kidney disease Paroxysmal atrial fibrillation Type 2 diabetes Dyslipidemia Obstructive sleep apnea syndrome Hypothyroidism History of bowel resection and ileostomy Recommendation: Continue present supportive care measures Continue oxygen and titrate accordingly Continue diuretics, presently on Lasix 40 mg IV push every 8 hours, received 80 mg in the ER. And the patient is feeling clinically much better. Continue antibiotics for now, however would stop antibiotics if his pro- calcitonin level is not significantly elevated, clinically this is a presentation of congestive heart failure more so than pneumonia. Will need outpatient follow-up with Dr. fields for his chronic abnormality of the right lower lobe We'll continue to follow. Time with Patient: Greater than 30
[2022-09-05] MEDS: INSULIN ASPART (NovoLOG) 100 UNIT/ML VIAL SQ SCH ×3 (13:34→20:33)
--- NOTE | 2022-09-05 16:11 | P.HPIM ---
History of Present Illness H&P Date: 09/05/22 Chief Complaint: Worsening shortness of breath Faisal Andrade, is a 71 year old male who presented to [facility] emergency room with a chief complaint of severe shortness of breath, patient stated that he started having shortness of breath and cough 3-4 days prior to presentation and his symptom has been worsening. Patient was evaluated in the emergency room he was in acute respiratory distress he was started on BiPAP. He was evaluated in the emergency room vital examination on presentation revealed a temperature of 97.9 pulse 90 respiration 54 blood pressure 157/97 pulse ox 92% on BiPAP Laboratory data revealed a white blood count of 9.9 hemoglobin 13.7 platelet count 200 sodium 140 potassium 4.6 BUN 41 creatinine 2.29 troponin level 0.074 Testing in the emergency room revealed chest x-ray done in the emergency room revealed evidence of pulmonary venous congestion and the right lower lobe infiltrate as well as bilateral small pleural effusions, EKG revealed sinus rhythm with first-degree AV block and right bundle branch block Patient was admitted to medical floor for further evaluation and treatment, he was started on IV Lasix and IV antibiotics pulmonary consultation and cardiology consultation were requested Past Medical History Past Medical History: Atrial Fibrillation, Cancer, Chest Pain / Angina, CVA/TIA, Diabetes Mellitus, Hyperlipidemia, Hypertension, Myocardial Infarction (MT), Renal Disease, Sleep Apnea/CPAP/BIPAP, Thyroid Disorder Additional Past Medical History / Comment(s): [place] X2, LAST 06/2013. AORTIC STENOSIS. 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 HX KIDNEY FAILURE IN PAST-Stage 3 kidney d isease, HX GOUT. NEUROPATHY KIM FEET. USES C-PAP. OVERACTIVE THYROID HX. EDEMA IN LEGS has improved, HX BOWEL RESECTION D/T CA, HAS ILEOSTOMY, chronic IRRITATION AT SITE, recent admission for low potassium per pt, uses oxygen @2l prn Last Myocardial Infarction Date:: 02/2013 History of Any Multi-Drug Resistant Organisms: None Reported Past Surgical History: Bowel Resection, Cardiac Valve Replacement, Heart Catheterization, Hernia Repair, Orthopedic Surgery Additional Past Surgical History / Comment(s): CARDIAC CATH X3. LT SHOULDER SURG. BOWEL SURG,. aortic valve replacement 02/06/15, cataract surgery Past Anesthesia/Blood Transfusion Reactions: No Reported Reaction Past Psychological History: Depression Additional Psychological History / Comment(s): SADD. Smoking Status: Never smoker Past Alcohol Use History: Occasional Past Drug Use History: None Reported Additional Drug Use History / Comment(s): USE TEEN ONLY - Past Family History Mother Family Medical History: Coronary Artery Disease (CAD), Hypertension Father Family Medical History: No Reported History Additional Family Medical History / Comment(s): heart valve disorders Medications and Allergies Home Medications Medication Instructions Recorded Confirmed Type Cyclobenzaprine [Flexeril] 10 mg PO HS 01/09/15 09/04/22 History Febuxostat [Uloric] 80 mg PO DAILY 03/02/19 09/04/22 History Fenofibrate Nanocrystallized 145 mg PO DAILY 03/02/19 09/04/22 History [Tricor] Hydrocodone/Acetaminophen [[place] 1 tab PO TID 03/02/19 09/04/22 History 10-325] Metoprolol Succinate [Toprol XL] 50 mg PO BID 03/02/19 09/04/22 History Omeprazole 20 mg PO DAILY 03/02/19 09/04/22 History Latanoprost/Pf [Latanoprost 0.005% 1 drop BOTH EYES HS 02/12/21 09/04/22 History Eye Drop] Apixaban [Eliquis] 5 mg PO BID tab 03/06/21 09/04/22 Rx Magnesium Oxide [Mag-Ox] 400 mg PO BID tab 03/06/21 09/04/22 Rx Potassium Chloride ER [K-Dur 10] 10 meq PO DAILY 30 Days #30 tab 04/06/21 09/04/22 Rx Ergocalciferol (Vitamin D2) 1,250 mcg PO SUWE 09/04/22 09/04/22 History [Drisdol (50,000 Iu)] Furosemide [Lasix] 40 mg PO BID 09/04/22 09/04/22 History Insulin Detemir [Levemir Flextouch See Protocol SQ HS 09/04/22 09/04/22 History Pen] Pravastatin Sodium [Pravachol] 20 mg PO DAILY 09/04/22 09/04/22 History dilTIAZem HCL 60 mg PO TID 09/04/22 09/04/22 History glipiZIDE [Glucotrol] 5 mg PO BID 09/04/22 09/04/22 History Allergies Allergy/AdvReac Type Severity Reaction Status Date / Time allopurinol Allergy Rash/Hives Verified 09/04/22 16:35 Physical Exam Vitals: Vital Signs Temp Pulse Pulse Pulse Resp BP BP 09/05/22 09:40 97.4 F L 81 20 127/67 09/05/22 07:51 09/05/22 04:32 09/05/22 04:00 80 21 137/70 09/05/22 01:30 96 20 09/05/22 00:29 09/04/22 22:53 96 20 140/77 09/04/22 20:15 97.3 F L 90 18 132/62 09/04/22 20:00 90 18 09/04/22 18:45 98.6 F 96 21 170/79 09/04/22 18:06 91 20 136/88 09/04/22 16:12 91 34 H 154/84 09/04/22 14:39 09/04/22 14:38 09/04/22 14:22 97.9 F 90 54 H 157/97 Pulse Ox FiO2 09/05/22 09:40 92 L 09/05/22 07:51 94 L 28 09/05/22 04:32 30 09/05/22 04:00 96 09/05/22 01:30 09/05/22 00:29 95 30 09/04/22 22:53 95 09/04/22 20:15 94 L 09/04/22 20:00 09/04/22 18:45 94 L 09/04/22 18:06 92 L 09/04/22 16:12 94 L 09/04/22 14:39 30 09/04/22 14:38 30 09/04/22 14:22 92 L Intake and Output 09/04/22 09/05/22 09/05/22 22:59 06:59 14:59 Intake Total 222 Output Total 1650 1300 650 Balance -4160 -7203 -650 Intake: Oral 222 Output: Urine 1450 900 600 Stool 200 400 50 Other: Voiding Method Urinal Urinal # Voids 1 Weight 111.13 kg 109 kg In general patient is alert and oriented x 3 in no distress HEENT head normocephalic and atraumatic Neck is supple no JVD no goiter no lymphadenopathy no carotid bruit Chest examination revealed coarse crackles in both lung zhang no wheezing Cardiac exam reveals regular heart sounds S1 and S2 no gallops no murmurs Abdomen is soft nontender no organomegaly with normal bowel sounds Extremity exam reveals no edema no cyanosis or clubbing Neurological examination reveals no gross focal deficits Results CBC & Chem 7: 09/04/22 14:45 09/04/22 14:45 Labs: Abnormal Lab Results - Last 24 Hours (Table) 09/04/22 09/04/22 09/04/22 Range/Units 14:45 14:45 14:45 Neutrophils # 8.8 H (1.3-7.7) k/uL Lymphocytes # 0.5 L (1.0-4.8) k/uL PT 12.4 H (9.0-12.0) sec INR 1.2 H (<1.2) APTT 31.1 H (22.0-30.0) sec BUN 41 H (9-20) mg/dL Creatinine 2.29 H (0.66-1.25) mg/dL POC Glucose (mg/dL) (70-110) mg/dL Troponin I (0.000-0.034) ng/mL 09/04/22 09/04/22 09/04/22 Range/Units 14:45 18:37 20:05 Neutrophils # (1.3-7.7) k/uL Lymphocytes # (1.0-4.8) k/uL PT (9.0-12.0) sec INR (<1.2) APTT (22.0-30.0) sec BUN (9-20) mg/dL Creatinine (0.66-1.25) mg/dL POC Glucose (mg/dL) 63 L 167 H (70-110) mg/dL Troponin I 0.074 H* (0.000-0.034) ng/mL Thrombosis Risk Factor Assmnt - Choose All That Apply Each Risk Factor Represents 2 Points: Age 61-74 years Thrombosis Risk Factor Assessment Total Risk Factor Score: 2 Thrombosis Risk Factor Assessment Level: Low Risk Assessment and Plan Plan: Severe shortness of breath, with acute on chronic hypoxic respiratory failure Acute exacerbation of congestive heart failure with chest x-ray revealing e vidence of pulmonary edema Underlying history of valvular heart disease, with history of aortic valve replacement in January 2015 Acute right lower lobe infiltrate suggestive of pneumonia Mild elevation in troponin level on presentation Underlying history of colon cancer status post surgery with ileostomy placement Underlying history of coronary artery disease with history of myocardial infarct ion in 2013 Underlying history of chronic kidney disease stage III Underlying history of insulin-dependent diabetes mellitus Underlying history of atrial fibrillation Underlying history of hypertension Underlying history of hyperlipidemia Underlying history of gout At this time patient is admitted to telemetry floor He was started on IV antibiotics and IV Lasix Home medications reviewed and reordered Cardiology consultation and pulmonary consultation requested For DVT prophylaxis patient is maintained on Eliquis Will follow closely during this admission
[2022-09-05 16:32] LABS: Glucose,Whole Blood 170 mg/dL (70-110)
[2022-09-05 20:17] LABS: Glucose,Whole Blood 124 mg/dL (70-110)
[2022-09-05] MEDS: INSULIN DETEMIR (LEVEMIR) 100 UNIT/ML SYR SQ SCH (20:59)
[2022-09-05] MEDS: AZITHROMYCIN 500 MG in SODIUM CHLORIDE 0.9% 250 ML IVPB SCH (21:49)
[2022-09-05] MEDS: CYCLOBENZAPRINE 10 MG TAB PO SCH (22:47)
[2022-09-05] MEDS: LATANOPROST 0.005% OPHTH DROPS 2.5 ML BTL BOTH EYES SCH (22:49)
[2022-09-06 06:05] LABS: Glucose,Whole Blood 53 mg/dL (70-110)
[2022-09-06] MEDS: glipiZIDE 5 MG TAB PO SCH ×2 (06:13→17:10)
[2022-09-06] MEDS: INSULIN ASPART (NovoLOG) 100 UNIT/ML VIAL SQ SCH ×4 (06:14→20:43)
[2022-09-06] MEDS: PANTOPRAZOLE 40 MG TABLET PO SCH ×2 (06:15→06:37)
[2022-09-06 06:24] LABS: Glucose,Whole Blood 64 mg/dL (70-110)
[2022-09-06 06:45] LABS: Glucose,Whole Blood 81 mg/dL (70-110)
[2022-09-06 10:08] LABS: Basophils % (A) 0 %; Eosinophils # (A) 0.2 k/uL (0-0.7); Eosinophils % (A) 2 %; HCT 39.8 % (39.0-53.0); HGB 12.6 gm/dL (13.0-17.5); Hypochromasia Slight; Lymphocytes # (A) 0.8 k/uL (1.0-4.8); Lymphocytes % (A) 11 %; MCH 28.4 pg (25.0-35.0); MCHC 31.7 g/dL (31.0-37.0); MCV 89.6 fL (80.0-100.0); Mean Platelet Volume 8.8; Monocytes # (A) 0.6 k/uL (0-1.0); Monocytes % (A) 8 %; Neutrophils # (A) 5.6 k/uL (1.3-7.7); Neutrophils % (A) 77 %; Platelet Count 206 k/uL (150-450); RBC 4.44 m/uL (4.30-5.90); RDW 14.1 % (11.5-15.5); WBC 7.3 k/uL (3.8-10.6)
[2022-09-06 10:16] LABS: Albumin 3.9 g/dL (3.5-5.0); Calcium 8.7 mg/dL (8.4-10.2); Potassium 4.8 mmol/L (3.5-5.1); Total Bilirubin 0.7 mg/dL (0.2-1.3); Total Protein 6.3 g/dL (6.3-8.2)
--- NOTE | 2022-09-06 10:28 | P.PN ---
Subjective Progress Note Date: 09/06/22 Faisal Andrade, is a 71 year old male who presented to [facility] emergency room with a chief complaint of severe shortness of breath, patient stated that he started having shortness of breath and cough 3-4 days prior to presentation and his symptom has been worsening. Patient was evaluated in the emergency room he was in acute respiratory distress he was started on BiPAP. He was evaluated in the emergency room vital examination on presentation revealed a temperature of 97.9 pulse 90 respiration 54 blood pressure 157/97 pulse ox 92% on BiPAP Laboratory data revealed a white blood count of 9.9 hemoglobin 13.7 platelet count 200 sodium 140 potassium 4.6 BUN 41 creatinine 2.29 troponin level 0.074 Testing in the emergency room revealed chest x-ray done in the emergency room revealed evidence of pulmonary venous congestion and the right lower lobe infiltrate as well as bilateral small pleural effusions, EKG revealed sinus rhythm with first-degree AV block and right bundle branch block Patient was admitted to medical floor for further evaluation and treatment, he was started on IV Lasix and IV antibiotics pulmonary consultation and cardiology consultation were requested On 09/06/2022 patient reports some improvement with shortness of breath. Patient remains on IV antibiotics Rocephin and azithromycin. Patient also maintained on IV Lasix. Cardiology and pulmonary services are following. Creatinine 2.82 and bun 47 this does appear chronic for patient will continue to monitor while patient is on IV Lasix. Patient denies chest pain. Patient does report some shortness of breast oh. Patient denies nausea vomiting or diarrhea. Patient denies any urinary burning or frequency Objective - Vital Signs Vital signs: Vital Signs Temp 98.0 F 09/06/22 07:53 Pulse 91 09/06/22 07:53 Resp 16 09/06/22 07:53 BP 124/65 09/06/22 07:53 Pulse Ox 92 L 09/06/22 07:53 FiO2 30 09/06/22 04:23 Intake & Output 09/05/22 09/06/22 09/06/22 18:59 06:59 18:59 Intake Total 657 Output Total 1350 690 Balance -693 -690 Weight 109 kg 109.3 kg Intake: Oral 657 Output: Urine 1000 450 Stool 350 240 Other: Voiding Method Urinal Urinal - Exam In general patient is alert and oriented x 3 in no distress HEENT head normocephalic and atraumatic Neck is supple no JVD no goiter no lymphadenopathy no carotid bruit Chest examination revealed coarse crackles in both lung zhang no wheezing Cardiac exam reveals regular heart sounds S1 and S2 no gallops no murmurs Abdomen is soft nontender no organomegaly with normal bowel sounds Extremity exam reveals no edema no cyanosis or clubbing Neurological examination reveals no gross focal deficits - Labs CBC & Chem 7: 09/06/22 09:42 09/06/22 09:42 Labs: Abnormal Lab Results - Last 24 Hours (Table) 09/05/22 09/05/22 09/05/22 Range/Units 08:16 11:03 11:03 Hgb (13.0-17.5) gm/dL Lymphocytes # (1.0-4.8) k/uL BUN (9-20) mg/dL Creatinine (0.66-1.25) mg/dL Glucose (74-99) mg/dL POC Glucose (mg/dL) (70-110) mg/dL Hemoglobin A1c 6.7 H (0.0-6.0) % Troponin I 0.168 H* (0.000-0.034) ng/mL Procalcitonin 0.24 H (0.02-0.09) ng/mL 09/05/22 09/05/22 09/05/22 Range/Units 11:58 16:30 19:32 Hgb (13.0-17.5) gm/dL Lymphocytes # (1.0-4.8) k/uL BUN (9-20) mg/dL Creatinine (0.66-1.25) mg/dL Glucose (74-99) mg/dL POC Glucose (mg/dL) 111 H 170 H (70-110) mg/dL Hemoglobin A1c (0.0-6.0) % Troponin I 0.146 H* (0.000-0.034) ng/mL Procalcitonin (0.02-0.09) ng/mL 09/05/22 09/06/22 09/06/22 Range/Units 20:15 06:02 06:23 Hgb (13.0-17.5) gm/dL Lymphocytes # (1.0-4.8) k/uL BUN (9-20) mg/dL Creatinine (0.66-1.25) mg/dL Glucose (74-99) mg/dL POC Glucose (mg/dL) 124 H 53 L 64 L (70-110) mg/dL Hemoglobin A1c (0.0-6.0) % Troponin I (0.000-0.034) ng/mL Procalcitonin (0.02-0.09) ng/mL 09/06/22 09/06/22 Range/Units 09:42 09:42 Hgb 12.6 L (13.0-17.5) gm/dL Lymphocytes # 0.8 L (1.0-4.8) k/uL BUN 47 H (9-20) mg/dL Creatinine 2.82 H (0.66-1.25) mg/dL Glucose 185 H (74-99) mg/dL POC Glucose (mg/dL) (70-110) mg/dL Hemoglobin A1c (0.0-6.0) % Troponin I (0.000-0.034) ng/mL Procalcitonin (0.02-0.09) ng/mL Assessment and Plan Plan: Severe shortness of breath, with acute on chronic hypoxic respiratory failure Acute exacerbation of congestive heart failure with chest x-ray revealing evidence of pulmonary edema Underlying history of valvular heart disease, with history of aortic valve replacement in January 2015 Acute right lower lobe infiltrate suggestive of pneumonia Mild elevation in troponin level on presentation Underlying history of colon cancer status post surgery with ileostomy placement Underlying history of coronary artery disease with history of myocardial infarction in 2012 Underlying history of chronic kidney disease stage III Underlying history of insulin-dependent diabetes mellitus Underlying history of atrial fibrillation Underlying history of hypertension Underlying history of hyperlipidemia Underlying history of gout At this time patient is admitted to telemetry floor He was started on IV antibiotics and IV Lasix Home medications reviewed and reordered Cardiology consultation and pulmonary consultation requested For DVT prophylaxis patient is maintained on Eliquis Will follow closely during this admission
[2022-09-06] MEDS: FENOFIBRATE 160 MG TAB PO SCH (10:54)
[2022-09-06] MEDS: PRAVASTATIN SODIUM 20 MG TAB PO SCH (10:54)
[2022-09-06] MEDS: MAGNESIUM OXIDE 400 MG TAB PO SCH ×2 (10:54→20:42)
[2022-09-06] MEDS: HYDROcodone/APAP 10-325MG 1 EACH TAB PO SCH ×3 (10:54→22:46)
[2022-09-06] MEDS: DILTIAZEM ORAL 60 MG TAB PO SCH ×3 (10:55→20:43)
[2022-09-06] MEDS: POTASSIUM CHLORIDE ER 10 MEQ TAB.ER.PRT PO SCH (10:55)
[2022-09-06] MEDS: FUROSEMIDE 10 MG/ML 4 ML VIAL IV SCH ×3 (10:55→22:46)
[2022-09-06] MEDS: APIXABAN 5 MG TAB PO SCH ×2 (10:55→20:43)
[2022-09-06] MEDS: METOPROLOL SUCCINATE (ER) 50 MG TAB.ER.24H PO SCH ×2 (10:55→20:43)
[2022-09-06] MEDS: NITROGLYCERIN OINT 1 INCH/GM PACKET TOPICAL SCH ×4 (10:56→20:43)
--- NOTE | 2022-09-06 11:14 | P.NPCON ---
History of Present Illness - Reason for Consult acute renal failure, chronic renal failure - History of Present Illness Reason for consultation: Acute kidney injury on chronic kidney disease History of present illness: Patient is a 71-year-old male seen in renal consultation for acute kidney injury on chronic kidney disease. Patient has chronic kidney disease stage IV with baseline creatinine in the range of 2-3 over the last year. Patient came to the hospital due to worsening shortness of breath and edema. Patient states he has CHF and was taking Lasix twice daily at home. However he was running out of the medication and cut it down to once a day and then subsequently to every other day. Patient noticed worsening of swelling in his lower extremities and also short of breath and came to the hospital. Patient states his insurance would not refill the medication. He is currently receiving IV Lasix. Admits to good urine output. No hematuria. Edema is improving. He is currently 2 L of oxygen which he wears at home as well. Patient has history of aortic valve replacement. He has diastolic CHF with moderate to severe tricuspid regurgitation, moderate mitral regurgitation and severe pulmonary hypertension. No chest pain or shortness of breath at this time. No significant cough. Denies fever or chills. He does a long-standing history of diabetes. Vital signs are stable. General: No acute distress. HEENT: Head exam is unremarkable. On nasal cannula. LUNGS: Breath sounds decreased. HEART: Rate and Rhythm are regular. ABDOMEN: Soft, obese. EXTREMITITES: 2+ edema. Past Medical History Past Medical History: Atrial Fibrillation, Cancer, Chest Pain / Angina, CVA/TIA, Diabetes Mellitus, Hyperlipidemia, Hypertension, Myocardial Infarction ([place]), Renal Disease, Sleep Apnea/CPAP/BIPAP, Thyroid Disorder Additional Past Medical History / Comment(s): [place] X2, LAST 06/2013. AORTIC STENOSIS. 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 HX KIDNEY FAILURE IN PAST-Stage 3 kidney disease, HX GOUT. NEUROPATHY KIM FEET. USES C-PAP. OVERACTIVE THYROID HX. EDEMA IN LEGS has improved, HX BOWEL RESECTION D/T CA, HAS ILEOSTOMY, chronic IRRITATION AT SITE, recent admission for low potassium per pt, uses oxygen @2l prn Last Myocardial Infarction Date:: 02/2013 History of Any Multi-Drug Resistant Organisms: None Reported Past Surgical History: Bowel Resection, Cardiac Valve Replacement, Heart Catheterization, Hernia Repair, Orthopedic Surgery Additional Past Surgical History / Comment(s): CARDIAC CATH X3. LT SHOULDER SURG. BOWEL SURG,. aortic valve replacement 02/06/15, cataract surgery Past Anesthesia/Blood Transfusion Reactions: No Reported Reaction Past Psychological History: Depression Additional Psychological History / Comment(s): SADD. Smoking Status: Never smoker Past Alcohol Use History: Occasional Past Drug Use History: None Reported Additional Drug Use History / Comment(s): USE TEEN ONLY - Past Family History Mother Family Medical History: Coronary Artery Disease (CAD), Hypertension Father Family Medical History: No Reported History Additional Family Medical History / Comment(s): heart valve disorders Medications and Allergies Home Medications Medication Instructions Recorded Confirmed Type Cyclobenzaprine [Flexeril] 10 mg PO HS 01/09/15 09/04/22 History Febuxostat [Uloric] 80 mg PO DAILY 03/02/19 09/04/22 History Fenofibrate Nanocrystallized 145 mg PO DAILY 03/02/19 09/04/22 History [Tricor] Hydrocodone/Acetaminophen [[place] 1 tab PO TID 03/02/19 09/04/22 History 10-325] Metoprolol Succinate [Toprol XL] 50 mg PO BID 03/02/19 09/04/22 History Omeprazole 20 mg PO DAILY 03/02/19 09/04/22 History Latanoprost/Pf [Latanoprost 0.005% 1 drop BOTH EYES HS 02/12/21 09/04/22 History Eye Drop] Apixaban [Eliquis] 5 mg PO BID tab 03/06/21 09/04/22 Rx Magnesium Oxide [Mag-Ox] 400 mg PO BID tab 03/06/21 09/04/22 Rx Potassium Chloride ER [K-Dur 10] 10 meq PO DAILY 30 Days #30 tab 04/06/21 09/04/22 Rx Ergocalciferol (Vitamin D2) 1,250 mcg PO SUWE 09/04/22 09/04/22 History [Drisdol (50,000 Iu)] Furosemide [Lasix] 40 mg PO BID 09/04/22 09/04/22 History Insulin Detemir [Levemir Flextouch See Protocol SQ HS 09/04/22 09/04/22 History Pen] Pravastatin Sodium [Pravachol] 20 mg PO DAILY 09/04/22 09/04/22 History dilTIAZem HCL 60 mg PO TID 09/04/22 09/04/22 History glipiZIDE [Glucotrol] 5 mg PO BID 09/04/22 09/04/22 History Allergies Allergy/AdvReac Type Severity Reaction Status Date / Time allopurinol Allergy Rash/Hives Verified 09/04/22 16:35 Physical Exam Vitals: Vital Signs Temp Pulse Pulse Resp BP BP Pulse Ox 09/06/22 07:53 98.0 F 91 16 124/65 92 L 09/06/22 07:33 93 L 09/06/22 04:23 09/06/22 03:37 66 15 118/68 92 L 09/06/22 01:50 82 80 18 09/06/22 01:00 09/05/22 23:04 97.6 F 82 18 124/68 94 L 09/05/22 20:15 97.4 F L 85 20 145/97 94 L 09/05/22 19:49 86 20 09/05/22 19:48 86 20 94 L 09/05/22 16:21 97.7 F 80 21 147/80 96 09/05/22 16:20 93 L 09/05/22 13:35 98.2 F 83 20 126/64 95 FiO2 09/06/22 07:53 09/06/22 07:33 09/06/22 04:23 30 09/06/22 03:37 30 09/06/22 01:50 09/06/22 01:00 30 09/05/22 23:04 09/05/22 20:15 09/05/22 19:49 09/05/22 19:48 09/05/22 16:21 09/05/22 16:20 09/05/22 13:35 Intake and Output 09/05/22 09/06/22 09/06/22 22:59 06:59 14:59 Intake Total 417 360 Output Total 1120 270 Balance -703 -270 360 Intake: Oral 417 360 Output: Urine 700 150 Stool 420 120 Other: Voiding Method Urinal Urinal # Bowel Movements 125 Weight 109.3 kg Results - Lab Results Most recent lab results Calcium 8.7 mg/dL (8.4-10.2) 09/06/22 09:42 Magnesium 2.2 mg/dL (1.6-2.3) 09/04/22 14:45 09/06/22 09:42 09/06/22 09:42 Assessment and Plan Plan: Assessment: 1. Acute kidney injury mostly prerenal secondary to cardiorenal syndrome. Creatinine 2.82 today. 2. Chronic kidney disease stage IV secondary to nephrosclerosis with baseline creatinine in the range of 2-3 over the last year. 3. Volume overload. 4. Acute on chronic diastolic CHF with moderate to severe tricuspid regurgitation, moderate mitral regurgitation and severe pulmonary hypertension. 5. Diabetes mellitus. 6. History of A. fib. Plan: Maintain IV Lasix. Low-salt diet. 1500 mL fluid restriction. Check UA.. Check renal ultrasound. Check bladder scan to make sure no urinary retention. Continue to monitor renal function and urine output. Thank you for the consultation. I will continue to follow patient with you during his hospital stay.
[2022-09-06 12:03] LABS: Glucose,Whole Blood 94 mg/dL (70-110)
--- NOTE | 2022-09-06 12:28 | US ---
EXAMINATION TYPE: US kidneys/renal and bladder DATE OF EXAM: 09/06/2022 COMPARISON: NONE CLINICAL HISTORY: [facility]sa. inpt with [facility]sa, obese EXAM MEASUREMENTS: Right Kidney: 9.6 x 4.6 x 6.0 cm Left Kidney: 10.6 x 4.8 x 6.1 cm Right Kidney: No hydronephrosis or masses seen Left Kidney: No hydronephrosis or masses seen Bladder: not distended There is no evidence for hydronephrosis at this point in time. No nephrolithiasis is seen. No teresa s are identified. IMPRESSION: Unremarkable study
[2022-09-06 12:40] LABS: Appearance,Urine Clear (Clear); Bilirubin,Urine Negative (Negative); Blood,Urine Negative (Negative); Color,Urine Light Yellow; Glucose,Urine (UA) Negative (Negative); Ketones,Urine Negative (Negative); Leukocyte Esterase,Urine Negative (Negative); Nitrite,Urine Negative (Negative); PH, Urine 5.5 (5.0-8.0); Protein,Urine Trace (Negative); Specific Gravity,Urine 1.008 (1.001-1.035); Urobilinogen,Urine <2.0 mg/dL (<2.0)
--- NOTE | 2022-09-06 14:02 | P.PN ---
Subjective HISTORY OF PRESENTING ILLNESS Patient is pleasant 71-year-old male with history of persistent atrial fibrillation status post previous DILLAN and cardioversion, prior TIA, diabetes mellitus type 2, hyperlipidemia, hypertension, chronic kidney disease, obstructive sleep apnea, neuropathy congestive heart failure who presents secondary to increased shortness breath. He states the pharmacy would not fill his Lasix and therefore had been cutting the Lasix down to 1 a day and then every other day over the last week. He has noticed some increase in lower extremity edema. He has been feeling increasing shortness of breath and therefore eventually was at doctor's appointment and feeling more short of breath and EMS was called. Chest x-ray 09/04 showed congestive heart failure with possible underlying pneumonia. He denies any fevers or chills or cough. He shows sinus rhythm with prolonged OK interval with right bundle branch block with nonspecific ST-T wave abnormalities. Creatinine 2.29 which appears as baseline with troponin 0.07 and proBNP 3300. Troponins have been chronically elevated in the past. He denies any chest pain or pressure. Previous echo 02/14 shows EF 55-60%, moderate LVH, mild aortic stenosis with prior bioprosthetic aortic valve, severe pulmonary hypertension RVSP 76, moderate to severe tricuspid regurgitation, moderate mitral regurgitation. 09/06 Patient seen and examined. He admits to good urine output with the Lasix 40 mg IV every 8 hours. Hemoglobin 12.6, BUN 47, creatinine 2.8. PHYSICAL EXAMINATION Vital signs reviewed. CONSTITUTIONAL: No apparent distress. HEENT: Head is normocephalic. Pupils are equal, round. Sclerae anicteric. Mucous membranes of the mouth are moist. No JVD. No carotid bruit. CHEST EXAMINATION: +crackles at bases HEART EXAMINATION: Regular rate and rhythm. S1, S2 heard. No murmurs, gallops or rub. ABDOMEN: Soft, nontender. Positive bowel sounds. EXTREMITIES: 2+ peripheral pulses, +trace lower extremity edema and no calf tenderness. NEUROLOGIC EXAMINATION: Patient is awake, alert and oriented x3. ASSESSMENT 1. Acute on chronic diastolic heart failure 2. History of prior bioprosthetic. Valve replacement 3. Moderate mitral regurgitation 4. Hypertension 5. Chronic kidney disease 6. Paroxysmal atrial fibrillation currently sinus rhythm 7. Troponin elevation not indicative of acute coronary syndrome, chronically elevated secondary to chronic kidney disease PLAN Appears to be mildly improving with IV Lasix. Mild increasing creatinine however appears close to baseline. Echocardiogram still pending. Await results and continue supportive care. Further recommendations to follow. Objective - Vital Signs Vital signs: Vital Signs Temp 97.8 F 09/06/22 12:38 Pulse 86 09/06/22 12:38 Resp 16 09/06/22 12:38 BP 130/72 09/06/22 12:38 Pulse Ox 92 L 09/06/22 12:38 FiO2 30 09/06/22 04:23 Intake & Output 09/05/22 09/06/22 09/06/22 18:59 06:59 18:59 Intake Total 657 360 Output Total 1350 690 325 Balance -693 -690 35 Weight 109 kg 109.3 kg Intake: Oral 657 360 Output: Urine 1000 450 325 Stool 350 240 Other: Voiding Method Urinal Urinal # Bowel Movements 100 - Labs CBC & Chem 7: 09/06/22 09:42 09/06/22 09:42 Labs: Abnormal Lab Results - Last 24 Hours (Table) 09/05/22 09/05/22 09/05/22 Range/Units 11:03 16:30 19:32 Hgb (13.0-17.5) gm/dL Lymphocytes # (1.0-4.8) k/uL BUN (9-20) mg/dL Creatinine (0.66-1.25) mg/dL Glucose (74-99) mg/dL POC Glucose (mg/dL) 170 H (70-110) mg/dL Hemoglobin A1c 6.7 H (0.0-6.0) % Troponin I 0.146 H* (0.000-0.034) ng/mL Urine Protein (Negative) 09/05/22 09/06/22 09/06/22 Range/Units 20:15 06:02 06:23 Hgb (13.0-17.5) gm/dL Lymphocytes # (1.0-4.8) k/uL BUN (9-20) mg/dL Creatinine (0.66-1.25) mg/dL Glucose (74-99) mg/dL POC Glucose (mg/dL) 124 H 53 L 64 L (70-110) mg/dL Hemoglobin A1c (0.0-6.0) % Troponin I (0.000-0.034) ng/mL Urine Protein (Negative) 11/09/1709/06/22 09/06/22 Range/Units 09:42 09:42 11:49 Hgb 12.6 L (13.0-17.5) gm/dL Lymphocytes # 0.8 L (1.0-4.8) k/uL BUN 47 H (9-20) mg/dL Creatinine 2.82 H (0.66-1.25) mg/dL Glucose 185 H (74-99) mg/dL POC Glucose (mg/dL) (70-110) mg/dL Hemoglobin A1c (0.0-6.0) % Troponin I (0.000-0.034) ng/mL Urine Protein Trace H (Negative)
--- NOTE | 2022-09-06 14:11 | P.PN ---
Subjective Progress Note Date: 09/06/22 Principal diagnosis: This is a 71-year-old white male with history of chronic atrial fibrillation, previous cardioversion, history of chronic kidney disease, obstructive sleep apnea, patient is normally maintained on Lasix at 40 mg by mouth twice a day. However the patient noted recently that he was getting short on Lasix, and his early refill was denied by his insurance company. Patient started cutting down on the Lasix from twice a day to once a day, and as he was noting that he will remain short before his next prescription refill, patient went down for a week to 40 mg every other day. Over the last 24 hours, patient has been noticing worsening shortness of breath, increased swelling in his lower extremities, and he got to the point that he couldn't breathe. Brought into ER, chest x-ray showed evidence of pulmonary edema and some consolidation in the right lower lobe. Patient had no symptoms to suggest pneumonia, no fever, no chills, no hemoptysis, and he had no chest pain. Patient was given diuretics in the ER, and clinically the patient stated that he is significantly better today compared to how he felt yesterday. Patient was placed on diuretics, and I was asked to see him on consultation. His BNP level was 3300. Previous echocardiogram showed pulmonary hypertension, moderate to severe tricuspid regurgitation, and moderate mitral regurgitation. His EF in the past has been noted to be 55-60%. The patient is seen today 09/06/2022 in follow-up on the selective care unit. He is currently sitting up at the bedside. Awake and alert in no acute distress. He is maintaining O2 saturations in the 90s on 2 L/m per nasal cannula. He has been utilizing CPAP at 13 cm water throughout the night. Normal saline at KVO. Ultrasound of the kidneys revealed no evidence of hydronephrosis or masses. Bladder is not distended. White count 7.3. Hem oglobin 12.6. Sodium 138. Potassium 4.8. Chloride 100. Bicarb 30. BUN 47. Creatinine 2.82. Glucose 185. He is continued on IV diuretics Lasix 40 mg every 8 hours. Antibiotics in the form of ceftriaxone and azithromycin. Anticoagulated with Eliquis. Objective - Vital Signs Vital signs: Vital Signs Temp 97.8 F 09/06/22 12:38 Pulse 86 09/06/22 12:38 Resp 16 09/06/22 12:38 BP 130/72 09/06/22 12:38 Pulse Ox 92 L 09/06/22 12:38 FiO2 30 09/06/22 04:23 Intake & Output 09/05/22 09/06/22 09/06/22 18:59 06:59 18:59 Intake Total 657 360 Output Total 1350 690 325 Balance -693 -690 35 Weight 109 kg 109.3 kg Intake: Oral 657 360 Output: Urine 1000 450 325 Stool 350 240 Other: Voiding Method Urinal Urinal # Bowel Movements 100 - Exam GENERAL EXAM: Alert, very pleasant 71-year-old male patient, on 2 L nasal c annula, comfortable in no apparent distress. HEAD: Normocephalic. EYES: Normal reaction of pupils, equal size. NOSE: Clear with pink turbinates. THROAT: No erythema or exudates. NECK: No masses, no JVD. CHEST: No chest wall deformity. LUNGS: Equal air entry with fine crackles at the bases with few scattered rhonchi.. CVS: S1 and S2 normal with no audible murmur, regular rhythm. ABDOMEN: Obese. Ileostomy in place. No hepatosplenomegaly, normal bowel sounds, no guarding or rigidity. SPINE: No scoliosis or deformity SKIN: No rashes CENTRAL NERVOUS SYSTEM: No focal deficits, tone is normal in all 4 extremities. EXTREMITIES: There is 1+ peripheral edema. No clubbing, no cyanosis. Peripheral pulses are intact. - Labs CBC & Chem 7: 09/06/22 09:42 09/06/22 09:42 Labs: Abnormal Lab Results - Last 24 Hours (Table) 09/05/22 09/05/22 09/05/22 Range/Units 11:03 16:30 19:32 Hgb (13.0-17.5) gm/dL Lymphocytes # (1.0-4.8) k/uL BUN (9-20) mg/dL Creatinine (0.66-1.25) mg/dL Glucose (74-99) mg/dL POC Glucose (mg/dL) 170 H (70-110) mg/dL Hemoglobin A1c 6.7 H (0.0-6.0) % Troponin I 0.146 H* (0.000-0.034) ng/mL Urine Protein (Negative) 11/08/1709/06/22 09/06/22 Range/Units 20:15 06:02 06:23 Hgb (13.0-17.5) gm/dL Lymphocytes # (1.0-4.8) k/uL BUN (9-20) mg/dL Creatinine (0.66-1.25) mg/dL Glucose (74-99) mg/dL POC Glucose (mg/dL) 124 H 53 L 64 L (70-110) mg/dL Hemoglobin A1c (0.0-6.0) % Troponin I (0.000-0.034) ng/mL Urine Protein (Negative) 09/06/22 09/06/22 09/06/22 Range/Units 09:42 09:42 11:49 Hgb 12.6 L (13.0-17.5) gm/dL Lymphocytes # 0.8 L (1.0-4.8) k/uL BUN 47 H (9-20) mg/dL Creatinine 2.82 H (0.66-1.25) mg/dL Glucose 185 H (74-99) mg/dL POC Glucose (mg/dL) (70-110) mg/dL Hemoglobin A1c (0.0-6.0) % Troponin I (0.000-0.034) ng/mL Urine Protein Trace H (Negative) Assessment and Plan Assessment: Acute hypoxemic respiratory failure secondary to chronic diastolic congestive heart failure, mostly because of noncompliance with the standard Lasix dose c annot rule out underlying immunity acquired pneumonia. Pro-calcitonin 0.24. Chronic right lower lobe consolidation, going back to 2020, based on previous x- rays of the chest and previous CT of the chest. Patient is following up with Dr. Connelly may eventually have to be considered for outpatient bronchoscopy Moderate mitral valve regurgitation Chronic kidney disease Paroxysmal atrial fibrillation Type 2 diabetes Dyslipidemia Obstructive sleep apnea syndrome, maintained on CPAP at 13 cm of water Hypothyroidism History of bowel resection and ileostomy Plan: The patient was seen and evaluated Improved but not quite back to his baseline Continue diuretics Procalcitonin 0.24 We'll switch from IV antibiotics to Augmentin Titrate the FiO2 as tolerated Increase his activity as tolerated Follow-up chest x-ray in a.m. We will continue to follow I have personally seen and examined the patient, performed the documentation and the assessment and plan as written. Number of minutes spent on the visit: 10.
[2022-09-06 16:59] LABS: Glucose,Whole Blood 174 mg/dL (70-110)
[2022-09-06 19:58] LABS: Glucose,Whole Blood 222 mg/dL (70-110)
[2022-09-06] MEDS: CYCLOBENZAPRINE 10 MG TAB PO SCH (20:42)
[2022-09-06] MEDS: AMOXIC-POT CLAV 500-125 MG 1 EACH TAB PO SCH (20:43)
[2022-09-06] MEDS: LATANOPROST 0.005% OPHTH DROPS 2.5 ML BTL BOTH EYES SCH (20:44)
[2022-09-06] MEDS: INSULIN DETEMIR (LEVEMIR) 100 UNIT/ML SYR SQ SCH ×2 (20:49→22:47)
[2022-09-06 22:46] LABS: Glucose,Whole Blood 138 mg/dL (70-110)
[2022-09-07 06:07] LABS: Glucose,Whole Blood 54 mg/dL (70-110)
[2022-09-07 06:25] LABS: Glucose,Whole Blood 56 mg/dL (70-110)
[2022-09-07 06:42] LABS: Glucose,Whole Blood 88 mg/dL (70-110)
[2022-09-07] MEDS: glipiZIDE 5 MG TAB PO SCH ×2 (06:54→16:20)
[2022-09-07] MEDS: PANTOPRAZOLE 40 MG TABLET PO SCH (06:54)
--- NOTE | 2022-09-07 07:12 | XR ---
EXAMINATION TYPE: XR chest 1V portable DATE OF EXAM: 09/07/2022 HISTORY: Shortness of breath. COMPARISON: 09/04/2022 TECHNIQUE: Single view of the chest is submitted. FINDINGS: Demonstrated are scattered senescent parenchymal change. There is persistent right perihilar and right lower lobe infiltrate. Mild patchy density left medial lung base noted as well. Continued cardiomegaly and improving pulmonary venous congestion. Hilar and mediastinal structures are within normal limits. Degenerative changes are seen of the dorsal spine. IMPRESSION: 1. There is persistent right perihilar and right lower lobe infiltrate. Mild patchy density left med ial lung base noted as well. Continued cardiomegaly and improving pulmonary venous congestion.
[2022-09-07] MEDS: INSULIN ASPART (NovoLOG) 100 UNIT/ML VIAL SQ SCH ×4 (08:16→20:19)
[2022-09-07] MEDS: FUROSEMIDE 10 MG/ML 4 ML VIAL IV SCH ×2 (08:20→16:20)
[2022-09-07] MEDS: PRAVASTATIN SODIUM 20 MG TAB PO SCH (08:21)
[2022-09-07] MEDS: METOPROLOL SUCCINATE (ER) 50 MG TAB.ER.24H PO SCH ×2 (08:21→20:18)
[2022-09-07] MEDS: POTASSIUM CHLORIDE ER 10 MEQ TAB.ER.PRT PO SCH (08:21)
[2022-09-07] MEDS: HYDROcodone/APAP 10-325MG 1 EACH TAB PO SCH ×3 (08:21→22:11)
[2022-09-07] MEDS: FENOFIBRATE 160 MG TAB PO SCH (08:21)
[2022-09-07] MEDS: APIXABAN 5 MG TAB PO SCH ×2 (08:21→20:18)
[2022-09-07] MEDS: MAGNESIUM OXIDE 400 MG TAB PO SCH ×2 (08:21→20:18)
[2022-09-07] MEDS: NITROGLYCERIN OINT 1 INCH/GM PACKET TOPICAL SCH ×4 (08:22→22:11)
[2022-09-07] MEDS: DILTIAZEM ORAL 60 MG TAB PO SCH ×3 (08:22→22:11)
[2022-09-07] MEDS: AMOXIC-POT CLAV 500-125 MG 1 EACH TAB PO SCH ×2 (08:22→22:12)
[2022-09-07 09:23] LABS: Basophils % (A) 1 %; Eosinophils # (A) 0.2 k/uL (0-0.7); Eosinophils % (A) 2 %; HCT 41.6 % (39.0-53.0); HGB 12.9 gm/dL (13.0-17.5); Hypochromasia Slight; Lymphocytes # (A) 0.8 k/uL (1.0-4.8); Lymphocytes % (A) 10 %; MCHC 31.1 g/dL (31.0-37.0); MCV 89.9 fL (80.0-100.0); Monocytes # (A) 0.6 k/uL (0-1.0); Monocytes % (A) 7 %; Neutrophils # (A) 6.3 k/uL (1.3-7.7); Neutrophils % (A) 79 %; Platelet Count 216 k/uL (150-450); RBC 4.62 m/uL (4.30-5.90); RDW 14.3 % (11.5-15.5)
[2022-09-07 09:41] LABS: Albumin 3.8 g/dL (3.5-5.0); Calcium 8.7 mg/dL (8.4-10.2); Potassium 4.2 mmol/L (3.5-5.1); Total Bilirubin 0.8 mg/dL (0.2-1.3); Total Protein 6.3 g/dL (6.3-8.2)
--- NOTE | 2022-09-07 10:02 | P.PN ---
Subjective Patient is a 71-year-old male with history of chronic kidney disease NKF stage IV with baseline creatinine around 2-3 range over the last year. He is admitted to the hospital with shortness of breath and edema. Currently being treated for CHF exacerbation and volume overload. Patient states that his breathing has improved. He continues to have significant edema in the lower extremities Maintained on 3 L of oxygen via nasal cannula. 24 hour urine output of 2.4 L. Serum creatinine at 2.6 mg/dL today down from 2.8 yesterday. Objective - Vital Signs Vital signs: Vital Signs Temp 98.2 F 09/07/22 08:00 Pulse 83 09/07/22 08:00 Resp 18 09/07/22 08:00 BP 110/73 09/07/22 08:00 Pulse Ox 95 09/07/22 08:56 FiO2 30 09/07/22 04:00 Intake & Output 09/06/22 09/07/22 09/07/22 18:59 06:59 18:59 Intake Total 838 Output Total 325 3500 100 Balance 513 -3500 -100 Weight 108.2 kg Intake: Oral 838 Output: Urine 325 2150 Stool 1350 100 Other: Voiding Method Urinal Urinal # Voids 1 # Bowel Movements 100 2 - Exam Patient is awake, comfortable, not in any acute distress mildly short of breath Examination of the heart S1 and S2 Examination lungs bilateral breath sounds are heard Abdomen is soft nontender Examination lower extremity shows edema 2+ bilaterally CH[employer]ER exam grossly intact - Labs CBC & Chem 7: 09/07/22 08:30 09/07/22 08:30 Labs: Abnormal Lab Results - Last 24 Hours (Table) 09/06/22 09/06/22 09/06/22 Range/Units 09:42 09:42 11:49 Hgb 12.6 L (13.0-17.5) gm/dL Lymphocytes # 0.8 L (1.0-4.8) k/uL BUN 47 H (9-20) mg/dL Creatinine 2.82 H (0.66-1.25) mg/dL Glucose 185 H (74-99) mg/dL POC Glucose (mg/dL) (70-110) mg/dL Urine Protein Trace H (Negative) 09/06/22 09/06/22 09/06/22 Range/Units 16:46 19:56 22:44 Hgb (13.0-17.5) gm/dL Lymphocytes # (1.0-4.8) k/uL BUN (9-20) mg/dL Creatinine (0.66-1.25) mg/dL Glucose (74-99) mg/dL POC Glucose (mg/dL) 174 H 222 H 138 H (70-110) mg/dL Urine Protein (Negative) 09/07/22 09/07/22 09/07/22 Range/Units 06:04 06:24 08:30 Hgb 12.9 L (13.0-17.5) gm/dL Lymphocytes # 0.8 L (1.0-4.8) k/uL BUN (9-20) mg/dL Creatinine (0.66-1.25) mg/dL Glucose (74-99) mg/dL POC Glucose (mg/dL) 54 L 56 L (70-110) mg/dL Urine Protein (Negative) 09/07/22 Range/Units 08:30 Hgb (13.0-17.5) gm/dL Lymphocytes # (1.0-4.8) k/uL BUN 50 H (9-20) mg/dL Creatinine 2.65 H (0.66-1.25) mg/dL Glucose 255 H (74-99) mg/dL POC Glucose (mg/dL) (70-110) mg/dL Urine Protein (Negative) Assessment and Plan Assessment: 1. Acute kidney injury mostly prerenal secondary to cardiorenal syndrome. Creatinine 2.6 today. 2. Chronic kidney disease stage IV secondary to nephrosclerosis with baseline creatinine in the range of 2-3 over the last year. 3. Volume overload. 4. Acute on chronic diastolic CHF with moderate to severe tricuspid regurgitation, moderate mitral regurgitation and severe pulmonary hypertension. 5. Diabetes mellitus. 6. History of A. fib. Plan: Continue with IV Lasix every 8 hours Repeat labs in a.m. Monitor electrolytes Consider decreasing Cardizem
[2022-09-07 11:57] LABS: Glucose,Whole Blood 147 mg/dL (70-110)
--- NOTE | 2022-09-07 11:59 | P.PN ---
Subjective Progress Note Date: 09/07/22 Faisal Andrade, is a 71 year old male who presented to [facility] emergency room with a chief complaint of severe shortness of breath, patient stated that he started having shortness of breath and cough 3-4 days prior to presentation and his symptom has been worsening. Patient was evaluated in the emergency room he was in acute respiratory distress he was started on BiPAP. He was evaluated in the emergency room vital examination on presentation revealed a temperature of 97.9 pulse 90 respiration 54 blood pressure 157/97 pulse ox 92% on BiPAP Laboratory data revealed a white blood count of 9.9 hemoglobin 13.7 platelet count 200 sodium 140 potassium 4.6 BUN 41 creatinine 2.29 troponin level 0.074 Testing in the emergency room revealed chest x-ray done in the emergency room revealed evidence of pulmonary venous congestion and the right lower lobe infiltrate as well as bilateral small pleural effusions, EKG revealed sinus rhythm with first-degree AV block and right bundle branch block Patient was admitted to medical floor for further evaluation and treatment, he was started on IV Lasix and IV antibiotics pulmonary consultation and cardiology consultation were requested On 09/06/2022 patient reports some improvement with shortness of breath. Patient remains on IV antibiotics Rocephin and azithromycin. Patient also maintained on IV Lasix. Cardiology and pulmonary services are following. Creatinine 2.82 and bun 47 this does appear chronic for patient will continue to monitor while patient is on IV Lasix. Patient denies chest pain. Patient does report some shortness of breast oh. Patient denies nausea vomiting or diarrhea. Patient denies any urinary burning or frequency On 09/07/2022 patient was seen and examined on the telemetry floor he is alert and oriented 3 in no apparent distress he is still complaining of shortness of breath and cough otherwise he denies any complaints there is no fever or chills no headache or dizziness no chest pain no nausea or vomiting no abdominal pain no diarrhea no blood in the stools no burning with urination no frequency or urgency and no hematuria. Objective - Vital Signs Vital signs: Vital Signs Temp 98.0 F 09/06/22 19:36 Pulse 75 09/06/22 23:53 Resp 19 09/06/22 23:53 BP 138/77 09/06/22 23:53 Pulse Ox 96 09/06/22 23:53 FiO2 30 09/07/22 04:00 Intake & Output 09/06/22 09/07/22 09/07/22 18:59 06:59 18:59 Intake Total 838 Output Total 325 3500 Balance 513 -3500 Weight 108.2 kg Intake: Oral 838 Output: Urine 325 2150 Stool 1350 Other: Voiding Method Urinal Urinal # Voids 1 # Bowel Movements 100 2 - Exam In general patient is alert and oriented x 3 in no distress HEENT head normocephalic and atraumatic Neck is supple no JVD no goiter no lymphadenopathy no carotid bruit Chest examination revealed coarse crackles in both lung zhang no wheezing Cardiac exam reveals regular heart sounds S1 and S2 no gallops no murmurs Abdomen is soft nontender no organomegaly with normal bowel sounds Extremity exam reveals no edema no cyanosis or clubbing Neurological examination reveals no gross focal deficits - Labs CBC & Chem 7: 09/07/22 08:30 09/07/22 08:30 Labs: Abnormal Lab Results - Last 24 Hours (Table) 09/06/22 09/06/22 09/06/22 Range/Units 09:42 09:42 11:49 Hgb 12.6 L (13.0-17.5) gm/dL Lymphocytes # 0.8 L (1.0-4.8) k/uL BUN 47 H (9-20) mg/dL Creatinine 2.82 H (0.66-1.25) mg/dL Glucose 185 H (74-99) mg/dL POC Glucose (mg/dL) (70-110) mg/dL Urine Protein Trace H (Negative) 09/06/22 09/06/22 09/06/22 Range/Units 16:46 19:56 22:44 Hgb (13.0-17.5) gm/dL Lymphocytes # (1.0-4.8) k/uL BUN (9-20) mg/dL Creatinine (0.66-1.25) mg/dL Glucose (74-99) mg/dL POC Glucose (mg/dL) 174 H 222 H 138 H (70-110) mg/dL Urine Protein (Negative) 09/07/22 09/07/22 Range/Units 06:04 06:24 Hgb (13.0-17.5) gm/dL Lymphocytes # (1.0-4.8) k/uL BUN (9-20) mg/dL Creatinine (0.66-1.25) mg/dL Glucose (74-99) mg/dL POC Glucose (mg/dL) 54 L 56 L (70-110) mg/dL Urine Protein (Negative) Assessment and Plan Plan: Severe shortness of breath, with acute on chronic hypoxic respiratory failure Acute exacerbation of congestive heart failure with chest x-ray revealing evidence of pulmonary edema Underlying history of valvular heart disease, with history of aortic valve replacement in January 2015 Acute right lower lobe infiltrate suggestive of pneumonia Mild elevation in troponin level on presentation Underlying history of colon cancer status post surgery with ileostomy placement Underlying history of coronary artery disease with history of myocardial infarction in 2012 Underlying history of chronic kidney disease stage III Underlying history of insulin-dependent diabetes mellitus Underlying history of atrial fibrillation Underlying history of hypertension Underlying history of hyperlipidemia Underlying history of gout At this time patient is admitted to telemetry floor He was started on IV antibiotics and IV Lasix Home medications reviewed and reordered Cardiology consultation and pulmonary consultation requested For DVT prophylaxis patient is maintained on Eliquis Will follow closely during this admission
--- NOTE | 2022-09-07 12:46 | P.PN ---
Subjective HISTORY OF PRESENTING ILLNESS Patient is pleasant 71-year-old male with history of persistent atrial fibrillation status post previous DILLAN and cardioversion, prior TIA, diabetes mellitus type 2, hyperlipidemia, hypertension, chronic kidney disease, obstructive sleep apnea, neuropathy congestive heart failure who presents secondary to increased shortness breath. He states the pharmacy would not fill his Lasix and therefore had been cutting the Lasix down to 1 a day and then every other day over the last week. He has noticed some increase in lower extremity edema. He has been feeling increasing shortness of breath and therefore eventually was at doctor's appointment and feeling more short of breath and EMS was called. Chest x-ray 09/04 showed congestive heart failure with possible underlying pneumonia. He denies any fevers or chills or cough. He shows sinus rhythm with prolonged AK interval with right bundle branch block with nonspecific ST-T wave abnormalities. Creatinine 2.29 which appears as baseline with troponin 0.07 and proBNP 3300. Troponins have been chronically elevated in the past. He denies any chest pain or pressure. Previous echo 02/14 shows EF 55-60%, moderate LVH, mild aortic stenosis with prior bioprosthetic aortic valve, severe pulmonary hypertension RVSP 76, moderate to severe tricuspid regurgitation, moderate mitral regurgitation. 09/06 Patient seen and examined. He admits to good urine output with the Lasix 40 mg IV every 8 hours. Hemoglobin 12.6, BUN 47, creatinine 2.8. 09/07 Patient seen and examined. Patient denies any chest pain or pressure. States he is feeling mildly improved overall. Still having some shortness breath and some lower extremity edema. Admits to good urine output with the Lasix 40 mg IV. Cr mildly improved to 2.6 PHYSICAL EXAMINATION Vital signs reviewed. CONSTITUTIONAL: No apparent distress. HEENT: Head is normocephalic. Pupils are equal, round. Sclerae anicteric. Mucous membranes of the mouth are moist. No JVD. No carotid bruit. CHEST EXAMINATION: +crackles at bases HEART EXAMINATION: Regular rate and rhythm. S1, S2 heard. No murmurs, gallops or rub. ABDOMEN: Soft, nontender. Positive bowel sounds. EXTREMITIES: 2+ peripheral pulses, +trace lower extremity edema and no calf tenderness. NEUROLOGIC EXAMINATION: Patient is awake, alert and oriented x3. ASSESSMENT 1. Acute on chronic diastolic heart failure 2. History of prior bioprosthetic valve replacement 3. Moderate mitral regurgitation 4. Hypertension 5. Chronic kidney disease 6. Paroxysmal atrial fibrillation currently sinus rhythm 7. Troponin elevation not indicative of acute coronary syndrome, chronically elevated secondary to chronic kidney disease PLAN Continue diuretics Await 2D echo Slowly appears improving Further recommendations to follow. Objective - Vital Signs Vital signs: Vital Signs Temp 98.2 F 09/07/22 08:00 Pulse 80 09/07/22 11:33 Resp 18 09/07/22 11:33 BP 110/73 09/07/22 08:00 Pulse Ox 95 09/07/22 08:56 FiO2 30 09/07/22 04:00 Intake & Output 09/06/22 09/07/22 09/07/22 18:59 06:59 18:59 Intake Total 838 118 Output Total 325 3500 300 Balance 513 -3500 -182 Weight 108.2 kg Intake: Oral 838 118 Output: Urine 325 2150 Stool 1350 300 Other: Voiding Method Urinal Urinal # Voids 1 # Bowel Movements 100 2 - Labs CBC & Chem 7: 09/07/22 08:30 09/07/22 08:30 Labs: Abnormal Lab Results - Last 24 Hours (Table) 09/06/22 09/06/22 09/06/22 Range/Units 16:46 19:56 22:44 Hgb (13.0-17.5) gm/dL Lymphocytes # (1.0-4.8) k/uL BUN (9-20) mg/dL Creatinine (0.66-1.25) mg/dL Glucose (74-99) mg/dL POC Glucose (mg/dL) 174 H 222 H 138 H (70-110) mg/dL 09/07/22 09/07/22 09/07/22 Range/Units 06:04 06:24 08:30 Hgb 12.9 L (13.0-17.5) gm/dL Lymphocytes # 0.8 L (1.0-4.8) k/uL BUN (9-20) mg/dL Creatinine (0.66-1.25) mg/dL Glucose (74-99) mg/dL POC Glucose (mg/dL) 54 L 56 L (70-110) mg/dL 09/07/22 09/07/22 Range/Units 08:30 11:44 Hgb (13.0-17.5) gm/dL Lymphocytes # (1.0-4.8) k/uL BUN 50 H (9-20) mg/dL Creatinine 2.65 H (0.66-1.25) mg/dL Glucose 255 H (74-99) mg/dL POC Glucose (mg/dL) 147 H (70-110) mg/dL
--- NOTE | 2022-09-07 13:07 | P.PN ---
Subjective Progress Note Date: 09/07/22 Principal diagnosis: This is a 71-year-old white male with history of chronic atrial fibrillation, previous cardioversion, history of chronic kidney disease, obstructive sleep apnea, patient is normally maintained on Lasix at 40 mg by mouth twice a day. However the patient noted recently that he was getting short on Lasix, and his early refill was denied by his insurance company. Patient started cutting down on the Lasix from twice a day to once a day, and as he was noting that he will remain short before his next prescription refill, patient went down for a week to 40 mg every other day. Over the last 24 hours, patient has been noticing worsening shortness of breath, increased swelling in his lower extremities, and he got to the point that he couldn't breathe. Brought into ER, chest x-ray showed evidence of pulmonary edema and some consolidation in the right lower lobe. Patient had no symptoms to suggest pneumonia, no fever, no chills, no hemoptysis, and he had no chest pain. Patient was given diuretics in the ER, and clinically the patient stated that he is significantly better today compared to how he felt yesterday. Patient was placed on diuretics, and I was asked to see him on consultation. His BNP level was 3300. Previous echocardiogram showed pulmonary hypertension, moderate to severe tricuspid regurgitation, and moderate mitral regurgitation. His EF in the past has been noted to be 55-60%. The patient is seen today 09/06/2022 in follow-up on the selective care unit. He is currently sitting up at the bedside. Awake and alert in no acute distress. He is maintaining O2 saturations in the 90s on 2 L/m per nasal cannula. He has been utilizing CPAP at 13 cm water throughout the night. Normal saline at KVO. Ultrasound of the kidneys revealed no evidence of hydronephrosis or masses. Bladder is not distended. White count 7.3. Hem oglobin 12.6. Sodium 138. Potassium 4.8. Chloride 100. Bicarb 30. BUN 47. Creatinine 2.82. Glucose 185. He is continued on IV diuretics Lasix 40 mg every 8 hours. Antibiotics in the form of ceftriaxone and azithromycin. Anticoagulated with Eliquis. The patient is seen today 09/07/2022 in follow-up on the selective care unit. He is currently sitting up in a chair at the bedside. Currently wearing his CPAP at 13 cm of water. He states he is feeling better. Otherwise he is maintaining good O2 saturations in the 90s on 2 L/m per nasal cannula. He has less crackles posterior. He remains in a negative balance of 3 L. Follow-up chest x-ray shows continued cardiomegaly and improving pulmonary venous congestion. There is persistent right perihilar and right lower lobe infiltrate. Patchy density in the left medial lung bases well. White count 8.0. He will then 12.9. Sodium 140. Potassium 4.2. BUN 50. Creatinine 2.65. He is continued on Augmentin. Continued on IV Lasix. Objective - Vital Signs Vital signs: Vital Signs Temp 98.2 F 09/07/22 08:00 Pulse 80 09/07/22 11:33 Resp 18 09/07/22 11:33 BP 110/73 09/07/22 08:00 Pulse Ox 95 09/07/22 08:56 FiO2 30 09/07/22 04:00 Intake & Output 09/06/22 09/07/22 09/07/22 18:59 06:59 18:59 Intake Total 838 118 Output Total 325 3500 300 Balance 513 -3500 -182 Weight 108.2 kg Intake: Oral 838 118 Output: Urine 325 2150 Stool 1350 300 Other: Voiding Method Urinal Urinal # Voids 1 # Bowel Movements 100 2 - Exam GENERAL EXAM: Alert, 71-year-old male patient, on 2 L nasal cannula, utilizing CPAP at 13 cm water,comfortable in no apparent distress. HEAD: Normocephalic. EYES: Normal reaction of pupils, equal size. NOSE: Clear with pink turbinates. THROAT: No erythema or exudates. NECK: No masses, no JVD. CHEST: No chest wall deformity. LUNGS: Equal air entry with fine crackles at the bases with few scattered rhonchi.. CVS: S1 and S2 normal with no audible murmur, regular rhythm. ABDOMEN: Obese. Ileostomy in place. No hepatosplenomegaly, normal bowel sounds, no guarding or rigidity. SPINE: No scoliosis or deformity SKIN: No rashes CENTRAL NERVOUS SYSTEM: No focal deficits, tone is normal in all 4 extremities. EXTREMITIES: There is 1+ peripheral edema. No clubbing, no cyanosis. Peripheral pulses are intact. - Labs CBC & Chem 7: 09/07/22 08:30 09/07/22 08:30 Labs: Abnormal Lab Results - Last 24 Hours (Table) 09/06/22 09/06/22 09/06/22 Range/Units 16:46 19:56 22:44 Hgb (13.0-17.5) gm/dL Lymphocytes # (1.0-4.8) k/uL BUN (9-20) mg/dL Creatinine (0.66-1.25) mg/dL Glucose (74-99) mg/dL POC Glucose (mg/dL) 174 H 222 H 138 H (70-110) mg/dL 09/07/22 09/07/22 09/07/22 Range/Units 06:04 06:24 08:30 Hgb 12.9 L (13.0-17.5) gm/dL Lymphocytes # 0.8 L (1.0-4.8) k/uL BUN (9-20) mg/dL Creatinine (0.66-1.25) mg/dL Glucose (74-99) mg/dL POC Glucose (mg/dL) 54 L 56 L (70-110) mg/dL 09/07/22 09/07/22 Range/Units 08:30 11:44 Hgb (13.0-17.5) gm/dL Lymphocytes # (1.0-4.8) k/uL BUN 50 H (9-20) mg/dL Creatinine 2.65 H (0.66-1.25) mg/dL Glucose 255 H (74-99) mg/dL POC Glucose (mg/dL) 147 H (70-110) mg/dL Assessment and Plan Assessment: Acute hypoxemic respiratory failure secondary to chronic diastolic congestive heart failure, mostly because of noncompliance with the standard Lasix dose cannot rule out underlying immunity acquired pneumonia. Pro-calcitonin 0.24. Chronic right lower lobe consolidation, going back to 2020, based on previous x- rays of the chest and previous CT of the chest. Patient is following up with Dr. Connelly may eventually have to be considered for outpatient bronchoscopy Moderate mitral valve regurgitation Chronic kidney disease Paroxysmal atrial fibrillation Type 2 diabetes Dyslipidemia Obstructive sleep apnea syndrome, maintained on CPAP at 13 cm of water Hypothyroidism History of bowel resection and ileostomy Plan: The patient was seen and evaluated Chest x-ray, labs and medications reviewed Improved but not quite back to his baseline Continue diuretics Continue Augmentin Titrate the FiO2 as tolerated Increase his activity as tolerated We will continue to follow I have personally seen and examined the patient, performed the documentation and the assessment and plan as written. Number of minutes spent on the visit: 10.
[2022-09-07 17:07] LABS: Glucose,Whole Blood 185 mg/dL (70-110)
[2022-09-07 19:46] LABS: Glucose,Whole Blood 252 mg/dL (70-110)
[2022-09-07] MEDS: INSULIN DETEMIR (LEVEMIR) 100 UNIT/ML SYR SQ SCH (20:18)
[2022-09-07] MEDS: CYCLOBENZAPRINE 10 MG TAB PO SCH (20:18)
[2022-09-07] MEDS: LATANOPROST 0.005% OPHTH DROPS 2.5 ML BTL BOTH EYES SCH (20:19)
[2022-09-08] MEDS: FUROSEMIDE 10 MG/ML 4 ML VIAL IV SCH ×4 (00:14→22:44)
[2022-09-08 05:44] LABS: Glucose,Whole Blood 71 mg/dL (70-110)
[2022-09-08] MEDS: INSULIN ASPART (NovoLOG) 100 UNIT/ML VIAL SQ SCH ×4 (05:59→20:36)
[2022-09-08 06:06] LABS: Glucose,Whole Blood 86 mg/dL (70-110)
[2022-09-08] MEDS: glipiZIDE 5 MG TAB PO SCH ×2 (06:33→16:43)
[2022-09-08] MEDS: PANTOPRAZOLE 40 MG TABLET PO SCH (06:33)
[2022-09-08 08:02] LABS: Basophils % (A) 1 %; Eosinophils # (A) 0.2 k/uL (0-0.7); Eosinophils % (A) 3 %; HCT 38.9 % (39.0-53.0); HGB 12.8 gm/dL (13.0-17.5); Hypochromasia Slight; Lymphocytes # (A) 1.1 k/uL (1.0-4.8); Lymphocytes % (A) 14 %; MCHC 32.9 g/dL (31.0-37.0); MCV 88.1 fL (80.0-100.0); Mean Platelet Volume 8.7; Monocytes # (A) 0.7 k/uL (0-1.0); Monocytes % (A) 9 %; Neutrophils # (A) 5.1 k/uL (1.3-7.7); Neutrophils % (A) 70 %; Platelet Count 200 k/uL (150-450); RBC 4.41 m/uL (4.30-5.90); RDW 14.5 % (11.5-15.5); WBC 7.3 k/uL (3.8-10.6)
[2022-09-08 08:08] LABS: Albumin 3.8 g/dL (3.5-5.0); Calcium 8.7 mg/dL (8.4-10.2); Total Bilirubin 0.7 mg/dL (0.2-1.3); Total Protein 6.3 g/dL (6.3-8.2)
[2022-09-08] MEDS: HYDROcodone/APAP 10-325MG 1 EACH TAB PO SCH ×3 (08:35→22:44)
[2022-09-08] MEDS: ERGOCALCIFEROL 1,250 MCG (50,000 IU) CAPSULE PO SCH (08:35)
[2022-09-08] MEDS: POTASSIUM CHLORIDE ER 10 MEQ TAB.ER.PRT PO SCH (08:35)
[2022-09-08] MEDS: DILTIAZEM ORAL 60 MG TAB PO SCH (08:35)
[2022-09-08] MEDS: MAGNESIUM OXIDE 400 MG TAB PO SCH ×2 (08:35→20:37)
[2022-09-08] MEDS: PRAVASTATIN SODIUM 20 MG TAB PO SCH (08:35)
[2022-09-08] MEDS: APIXABAN 5 MG TAB PO SCH ×2 (08:36→20:36)
[2022-09-08] MEDS: METOPROLOL SUCCINATE (ER) 50 MG TAB.ER.24H PO SCH ×2 (08:36→20:37)
[2022-09-08] MEDS: FENOFIBRATE 160 MG TAB PO SCH (08:36)
[2022-09-08] MEDS: AMOXIC-POT CLAV 500-125 MG 1 EACH TAB PO SCH ×2 (08:36→20:42)
[2022-09-08] MEDS: NITROGLYCERIN OINT 1 INCH/GM PACKET TOPICAL SCH ×4 (08:36→22:44)
--- NOTE | 2022-09-08 09:27 | P.PN ---
Subjective Progress Note Date: 09/08/22 Faisal Andrade, is a 71 year old male who presented to [facility] emergency room with a chief complaint of severe shortness of breath, patient stated that he started having shortness of breath and cough 3-4 days prior to presentation and his symptom has been worsening. Patient was evaluated in the emergency room he was in acute respiratory distress he was started on BiPAP. He was evaluated in the emergency room vital examination on presentation revealed a temperature of 97.9 pulse 90 respiration 54 blood pressure 157/97 pulse ox 92% on BiPAP Laboratory data revealed a white blood count of 9.9 hemoglobin 13.7 platelet count 200 sodium 140 potassium 4.6 BUN 41 creatinine 2.29 troponin level 0.074 Testing in the emergency room revealed chest x-ray done in the emergency room revealed evidence of pulmonary venous congestion and the right lower lobe infiltrate as well as bilateral small pleural effusions, EKG revealed sinus rhythm with first-degree AV block and right bundle branch block Patient was admitted to medical floor for further evaluation and treatment, he was started on IV Lasix and IV antibiotics pulmonary consultation and cardiology consultation were requested On 09/06/2022 patient reports some improvement with shortness of breath. Patient remains on IV antibiotics Rocephin and azithromycin. Patient also maintained on IV Lasix. Cardiology and pulmonary services are following. Creatinine 2.82 and bun 47 this does appear chronic for patient will continue to monitor while patient is on IV Lasix. Patient denies chest pain. Patient does report some shortness of breast oh. Patient denies nausea vomiting or diarrhea. Patient denies any urinary burning or frequency On 09/07/2022 patient was seen and examined on the telemetry floor he is alert and oriented 3 in no apparent distress he is still complaining of shortness of breath and cough otherwise he denies any complaints there is no fever or chills no headache or dizziness no chest pain no nausea or vomiting no abdominal pain no diarrhea no blood in the stools no burning with urination no frequency or urgency and no hematuria. On 09/08/2022 patient was seen and examined on the medical floor he is alert and oriented 3 in no apparent distress he is still complaining of cough and shortness of breath with activity otherwise he denies any complaints there is no fever or chills no headache or dizziness no chest pain no nausea or vomiting no abdominal pain no diarrhea no blood in the stools no burning with urination no frequency or urgency and no hematuria. Objective - Vital Signs Vital signs: Vital Signs Temp 97.8 F 09/07/22 19:55 Pulse 72 09/08/22 08:00 Resp 21 09/08/22 08:00 BP 125/76 09/08/22 08:00 Pulse Ox 97 09/08/22 08:00 FiO2 30 09/08/22 04:15 Intake & Output 09/07/22 09/08/22 09/08/22 18:59 06:59 18:59 Intake Total 456 Output Total 300 1500 350 Balance 156 -1500 -350 Weight 108.5 kg Intake: Oral 456 Output: Urine 1300 250 Stool 300 200 100 Other: Voiding Method Urinal - Exam In general patient is alert and oriented x 3 in no distress HEENT head normocephalic and atraumatic Neck is supple no JVD no goiter no lymphadenopathy no carotid bruit Chest examination revealed coarse crackles in both lung zhang no wheezing Cardiac exam reveals regular heart sounds S1 and S2 no gallops no murmurs Abdomen is soft nontender no organomegaly with normal bowel sounds Extremity exam reveals no edema no cyanosis or clubbing Neurological examination reveals no gross focal deficits - Labs CBC & Chem 7: 09/08/22 06:58 09/08/22 06:58 Labs: Abnormal Lab Results - Last 24 Hours (Table) 09/07/22 09/07/22 09/07/22 Range/Units 08:30 08:30 11:44 Hgb 12.9 L (13.0-17.5) gm/dL Hct (39.0-53.0) % Lymphocytes # 0.8 L (1.0-4.8) k/uL Carbon Dioxide (22-30) mmol/L BUN 50 H (9-20) mg/dL Creatinine 2.65 H (0.66-1.25) mg/dL Glucose 255 H (74-99) mg/dL POC Glucose (mg/dL) 147 H (70-110) mg/dL 09/07/22 09/07/22 09/08/22 Range/Units 16:47 19:45 06:58 Hgb 12.8 L (13.0-17.5) gm/dL Hct 38.9 L (39.0-53.0) % Lymphocytes # (1.0-4.8) k/uL Carbon Dioxide (22-30) mmol/L BUN (9-20) mg/dL Creatinine (0.66-1.25) mg/dL Glucose (74-99) mg/dL POC Glucose (mg/dL) 185 H 252 H (70-110) mg/dL 09/08/22 Range/Units 06:58 Hgb (13.0-17.5) gm/dL Hct (39.0-53.0) % Lymphocytes # (1.0-4.8) k/uL Carbon Dioxide 31 H (22-30) mmol/L BUN 51 H (9-20) mg/dL Creatinine 2.72 H (0.66-1.25) mg/dL Glucose (74-99) mg/dL POC Glucose (mg/dL) (70-110) mg/dL Assessment and Plan Plan: Severe shortness of breath, with acute on chronic hypoxic respiratory failure Acute exacerbation of congestive heart failure with chest x-ray revealing evidence of pulmonary edema Underlying history of valvular heart disease, with history of aortic valve replacement in January 2015 Acute right lower lobe infiltrate suggestive of pneumonia Mild elevation in troponin level on presentation Underlying history of colon cancer status post surgery with ileostomy placement Underlying history of coronary artery disease with history of myocardial infarction in 2012 Underlying history of chronic kidney disease stage III Underlying history of insulin-dependent diabetes mellitus Underlying history of atrial fibrillation Underlying history of hypertension Underlying history of hyperlipidemia Underlying history of gout At this time patient is admitted to telemetry floor He was started on IV antibiotics and IV Lasix Home medications reviewed and reordered Cardiology consultation and pulmonary consultation requested For DVT prophylaxis patient is maintained on Eliquis Will follow closely during this admission
--- NOTE | 2022-09-08 09:54 | P.PN ---
Subjective Patient is a 71-year-old male with history of chronic kidney disease NKF stage IV with baseline creatinine around 2-3 range over the last year. He is admitted to the hospital with shortness of breath and edema. Currently being treated for CHF exacerbation and volume overload. Patient states that his breathing has improved. He continues to have significant edema in the lower extremities Maintained on 3 L of oxygen via nasal cannula and BiPAP 24 hour urine output of 1.3 L. Serum creatinine staying at 2.6-2.8 mg/dL Objective - Vital Signs Vital signs: Vital Signs Temp 97.8 F 09/07/22 19:55 Pulse 72 09/08/22 08:00 Resp 21 09/08/22 08:00 BP 125/76 09/08/22 08:00 Pulse Ox 97 09/08/22 08:00 FiO2 30 09/08/22 04:15 Intake & Output 09/07/22 09/08/22 09/08/22 18:59 06:59 18:59 Intake Total 456 Output Total 300 1500 350 Balance 156 -1500 -350 Weight 108.5 kg Intake: Oral 456 Output: Urine 1300 250 Stool 300 200 100 Other: Voiding Method Urinal - Exam Patient is awake, comfortable, not in any acute distress mildly short of breath Examination of the heart S1 and S2 Examination lungs bilateral breath sounds are heard Abdomen is soft nontender Examination lower extremity shows edema 2+ bilaterally CYCLE DIRECTOR exam grossly intact - Labs CBC & Chem 7: 09/08/22 06:58 09/08/22 06:58 Labs: Abnormal Lab Results - Last 24 Hours (Table) 09/07/22 09/07/22 09/07/22 Range/Units 11:44 16:47 19:45 Hgb (13.0-17.5) gm/dL Hct (39.0-53.0) % Carbon Dioxide (22-30) mmol/L BUN (9-20) mg/dL Creatinine (0.66-1.25) mg/dL POC Glucose (mg/dL) 147 H 185 H 252 H (70-110) mg/dL 09/08/22 09/08/22 Range/Units 06:58 06:58 Hgb 12.8 L (13.0-17.5) gm/dL Hct 38.9 L (39.0-53.0) % Carbon Dioxide 31 H (22-30) mmol/L BUN 51 H (9-20) mg/dL Creatinine 2.72 H (0.66-1.25) mg/dL POC Glucose (mg/dL) (70-110) mg/dL Assessment and Plan Assessment: 1. Acute kidney injury mostly prerenal secondary to cardiorenal syndrome. Creatinine 2.7 today. 2. Chronic kidney disease stage IV secondary to nephrosclerosis with baseline creatinine in the range of 2-3 over the last year. 3. Volume overload. 4. Acute on chronic diastolic CHF with moderate to severe tricuspid regurgitation, moderate mitral regurgitation and severe pulmonary hypertension. 5. Diabetes mellitus. 6. History of A. fib. Plan: Continue with IV Lasix every 8 hours Repeat labs in a.m. Monitor electrolytes Decrease Cardizem
[2022-09-08 12:14] LABS: Glucose,Whole Blood 131 mg/dL (70-110)
--- NOTE | 2022-09-08 12:16 | P.PN ---
Subjective Progress Note Date: 09/08/22 Principal diagnosis: Acute hypoxic respiratory failure secondary to chronic diastolic heart failure This is a 71-year-old white male with history of chronic atrial fibrillation, p revious cardioversion, history of chronic kidney disease, obstructive sleep apnea, patient is normally maintained on Lasix at 40 mg by mouth twice a day. However the patient noted recently that he was getting short on Lasix, and his early refill was denied by his insurance company. Patient started cutting down on the Lasix from twice a day to once a day, and as he was noting that he will remain short before his next prescription refill, patient went down for a week to 40 mg every other day. Over the last 24 hours, patient has been noticing worsening shortness of breath, increased swelling in his lower extremities, and he got to the point that he couldn't breathe. Brought into ER, chest x-ray showed evidence of pulmonary edema and some consolidation in the right lower lobe. Patient had no symptoms to suggest pneumonia, no fever, no chills, no hemoptysis, and he had no chest pain. Patient was given diuretics in the ER, and clinically the patient stated that he is significantly better today compared to how he felt yesterday. Patient was placed on diuretics, and I was asked to see him on consultation. His BNP level was 3300. Previous echocardiogram showed pulmonary hypertension, moderate to severe tricuspid regurgitation, and moderate mitral regurgitation. His EF in the past has been noted to be 55-60%. The patient is seen today 09/06/2022 in follow-up on the selective care unit. He is currently sitting up at the bedside. Awake and alert in no acute distress. He is maintaining O2 saturations in the 90s on 2 L/m per nasal cannula. He has been utilizing CPAP at 13 cm water throughout the night. Normal saline at KVO. Ultrasound of the kidneys revealed no evidence of hydronephrosis or masses. Bladder is not distended. White count 7.3. Hemoglobin 12.6. Sodium 138. Potassium 4.8. Chloride 100. Bicarb 30. BUN 47. Creatinine 2.82. Glucose 185. He is continued on IV diuretics Lasix 40 mg every 8 hours. Antibiotics in the form of ceftriaxone and azithromycin. Anticoagulated with Eliquis. The patient is seen today 09/07/2022 in follow-up on the selective care unit. He is currently sitting up in a chair at the bedside. Currently wearing his CPAP at 13 cm of water. He states he is feeling better. Otherwise he is maintaining good O2 saturations in the 90s on 2 L/m per nasal cannula. He has less crackles posterior. He remains in a negative balance of 3 L. Follow-up chest x-ray shows continued cardiomegaly and improving pulmonary venous con gestion. There is persistent right perihilar and right lower lobe infiltrate. Patchy density in the left medial lung bases well. White count 8.0. He will then 12.9. Sodium 140. Potassium 4.2. BUN 50. Creatinine 2.65. He is continued on Augmentin. Continued on IV Lasix. Reevaluated today on 09/08/22, patient is still on CPAP this morning, he is on CPAP of 13. Doing well, relatively asymptomatic, feeling much better today compared to yesterday, remains on diuretics, he also remains on antibiotics. Chest x-ray is showing definite improvement in his right lower lobe opacity, nonetheless he continues to have some interstitial edema. CBC is unremarkable electrolytes are normal BUN is 51 creatinine 2.72, patient is followed by nephrology. His creatinine has been gradually rising Objective - Vital Signs Vital signs: Vital Signs Temp 97.8 F 09/07/22 19:55 Pulse 74 09/08/22 11:14 Resp 21 09/08/22 11:14 BP 125/76 09/08/22 08:00 Pulse Ox 97 09/08/22 08:00 FiO2 30 09/08/22 04:15 Intake & Output 09/07/22 09/08/22 09/08/22 18:59 06:59 18:59 Intake Total 456 Output Total 300 1500 450 Balance 156 -1500 -450 Weight 108.5 kg Intake: Oral 456 Output: Urine 1300 250 Stool 300 200 200 Other: Voiding Method Urinal - Exam Physical Exam: Revealed 71-year-old white male obese on CPAP Head: Atraumatic normocephalic. HEENT:[Neck is supple.] [No neck masses.] [No thyromegaly.] [No JVD.] Chest: [Crackles at the bases persists. Cardiac Exam: [Normal S1 and S2, no S3 gallop, no murmur.] Abdomen: [Soft, nontender, no megaly, no rebound, no guarding, normal bowel sounds.] Extremities: [No clubbing, trace of bipedal edema, no cyanosis.] Neurological Exam: [No focal neurologic deficit.] Alert oriented 3 Psychiatric: Normal mood affect and normal mental status examination. Skin: No rashes. - Labs CBC & Chem 7: 09/08/22 06:58 09/08/22 06:58 Labs: Abnormal Lab Results - Last 24 Hours (Table) 09/07/22 09/07/22 09/08/22 Range/Units 16:47 19:45 06:58 Hgb 12.8 L (13.0-17.5) gm/dL Hct 38.9 L (39.0-53.0) % Carbon Dioxide (22-30) mmol/L BUN (9-20) mg/dL Creatinine (0.66-1.25) mg/dL POC Glucose (mg/dL) 185 H 252 H (70-110) mg/dL 09/08/22 Range/Units 06:58 Hgb (13.0-17.5) gm/dL Hct (39.0-53.0) % Carbon Dioxide 31 H (22-30) mmol/L BUN 51 H (9-20) mg/dL Creatinine 2.72 H (0.66-1.25) mg/dL POC Glucose (mg/dL) (70-110) mg/dL Assessment and Plan Assessment: Impression: Acute on chronic diastolic congestive heart failure, mostly because of noncompliance with the standard Lasix dose Chronic right lower lobe consolidation, going back to 2020, based on previous x- rays of the chest and previous CT of the chest. Patient is following up with Dr. fields may eventually have to be considered for outpatient bronchoscopy Moderate mitral valve regurgitation Chronic kidney disease Paroxysmal atrial fibrillation Type 2 diabetes Dyslipidemia Obstructive sleep apnea syndrome Hypothyroidism History of bowel resection and ileostomy Recommendation: Continue present supportive care measures Continue oxygen and titrate accordingly Continue diuretics, Continue antibiotics , chest x-ray is showing significant improvement in his right lower lobe opacity which has been chronic. Will need outpatient follow-up with Dr. fields We'll continue to follow. Time with Patient: Less than 30
--- NOTE | 2022-09-08 14:54 | P.PN ---
Subjective HISTORY OF PRESENTING ILLNESS Patient is pleasant 71-year-old male with history of persistent atrial fibrillation status post previous DILLAN and cardioversion, prior TIA, diabetes mellitus type 2, hyperlipidemia, hypertension, chronic kidney disease, obstructive sleep apnea, neuropathy congestive heart failure who presents secondary to increased shortness breath. He states the pharmacy would not fill his Lasix and therefore had been cutting the Lasix down to 1 a day and then every other day over the last week. He has noticed some increase in lower extremity edema. He has been feeling increasing shortness of breath and therefore eventually was at doctor's appointment and feeling more short of breath and EMS was called. Chest x-ray 09/04 showed congestive heart failure with possible underlying pneumonia. He denies any fevers or chills or cough. He shows sinus rhythm with prolonged [place] interval with right bundle branch block with nonspecific ST-T wave abnormalities. Creatinine 2.29 which appears as baseline with troponin 0.07 and proBNP 3300. Troponins have been chronically elevated in the past. He denies any chest pain or pressure. Previous echo 02/14 shows EF 55-60%, moderate LVH, mild aortic stenosis with prior bioprosthetic aortic valve, severe pulmonary hypertension RVSP 76, moderate to severe tricuspid regurgitation, moderate mitral regurgitation. 09/06 Patient seen and examined. He admits to good urine output with the Lasix 40 mg IV every 8 hours. Hemoglobin 12.6, BUN 47, creatinine 2.8. 09/07 Patient seen and examined. Patient denies any chest pain or pressure. States he is feeling mildly improved overall. Still having some shortness breath and some lower extremity edema. Admits to good urine output with the Lasix 40 mg IV. Cr mildly improved to 2.6 09/08 Patient seen and examined. Patient states he is feeling somewhat better day by day. Still somewhat wheezing on exam. Creatinine 2.7 which has been close to his baseline anywhere from 2.2 up to 3.0. Denies any chest pain or pressure. States he is still having good urine output with Lasix 40mg IV Q8 PHYSICAL EXAMINATION Vital signs reviewed. CONSTITUTIONAL: No apparent distress. HEENT: Head is normocephalic. Pupils are equal, round. Sclerae anicteric. Mucous membranes of the mouth are moist. No JVD. No carotid bruit. CHEST EXAMINATION: +wheeze HEART EXAMINATION: Regular rate and rhythm. S1, S2 heard. No murmurs, gallops or rub. ABDOMEN: Soft, nontender. Positive bowel sounds. EXTREMITIES: 2+ peripheral pulses, +trace lower extremity edema and no calf tenderness. NEUROLOGIC EXAMINATION: Patient is awake, alert and oriented x3. ASSESSMENT 1. Acute on chronic diastolic heart failure 2. History of prior bioprosthetic valve replacement 3. Moderate mitral regurgitation 4. Hypertension 5. Chronic kidney disease 6. Paroxysmal atrial fibrillation currently sinus rhythm 7. Troponin elevation not indicative of acute coronary syndrome, chronically elevated secondary to chronic kidney disease PLAN Continue diuretics Monitor Cr closely however remains relatively stable Await 2D echo Slowly appears improving Further recommendations to follow. Objective - Vital Signs Vital signs: Vital Signs Temp 98.1 F 09/08/22 12:00 Pulse 69 09/08/22 12:00 Resp 20 09/08/22 12:00 BP 118/74 09/08/22 12:00 Pulse Ox 98 09/08/22 12:00 FiO2 30 09/08/22 04:15 Intake & Output 09/07/22 09/08/22 09/08/22 18:59 06:59 18:59 Intake Total 456 Output Total 300 1500 450 Balance 156 -1500 -450 Weight 108.5 kg Intake: Oral 456 Output: Urine 1300 250 Stool 300 200 200 Other: Voiding Method Urinal - Labs CBC & Chem 7: 09/08/22 06:58 09/08/22 06:58 Labs: Abnormal Lab Results - Last 24 Hours (Table) 09/07/22 09/07/22 09/08/22 Range/Units 16:47 19:45 06:58 Hgb 12.8 L (13.0-17.5) gm/dL Hct 38.9 L (39.0-53.0) % Carbon Dioxide (22-30) mmol/L BUN (9-20) mg/dL Creatinine (0.66-1.25) mg/dL POC Glucose (mg/dL) 185 H 252 H (70-110) mg/dL 09/08/22 09/08/22 Range/Units 06:58 11:45 Hgb (13.0-17.5) gm/dL Hct (39.0-53.0) % Carbon Dioxide 31 H (22-30) mmol/L BUN 51 H (9-20) mg/dL Creatinine 2.72 H (0.66-1.25) mg/dL POC Glucose (mg/dL) 131 H (70-110) mg/dL
[2022-09-08] MEDS: DILTIAZEM ORAL 30 MG TAB PO SCH ×2 (16:43→22:44)
[2022-09-08 16:58] LABS: Glucose,Whole Blood 170 mg/dL (70-110)
[2022-09-08 20:08] LABS: Glucose,Whole Blood 198 mg/dL (70-110)
[2022-09-08] MEDS: LATANOPROST 0.005% OPHTH DROPS 2.5 ML BTL BOTH EYES SCH (20:27)
[2022-09-08] MEDS: INSULIN DETEMIR (LEVEMIR) 100 UNIT/ML SYR SQ SCH (20:36)
[2022-09-08] MEDS: CYCLOBENZAPRINE 10 MG TAB PO SCH (20:37)
[2022-09-09 06:08] LABS: Glucose,Whole Blood 101 mg/dL (70-110)
[2022-09-09] MEDS: INSULIN ASPART (NovoLOG) 100 UNIT/ML VIAL SQ SCH ×4 (06:29→20:33)
[2022-09-09] MEDS: PANTOPRAZOLE 40 MG TABLET PO SCH (06:31)
[2022-09-09] MEDS: glipiZIDE 5 MG TAB PO SCH ×2 (06:31→17:12)
[2022-09-09] MEDS: AMOXIC-POT CLAV 500-125 MG 1 EACH TAB PO SCH ×2 (08:49→20:32)
[2022-09-09] MEDS: PRAVASTATIN SODIUM 20 MG TAB PO SCH (08:49)
[2022-09-09] MEDS: POTASSIUM CHLORIDE ER 10 MEQ TAB.ER.PRT PO SCH (08:49)
[2022-09-09] MEDS: HYDROcodone/APAP 10-325MG 1 EACH TAB PO SCH ×3 (08:49→22:27)
[2022-09-09] MEDS: DILTIAZEM ORAL 30 MG TAB PO SCH ×3 (08:50→22:27)
[2022-09-09] MEDS: FENOFIBRATE 160 MG TAB PO SCH (08:50)
[2022-09-09] MEDS: APIXABAN 5 MG TAB PO SCH ×2 (08:50→20:32)
[2022-09-09] MEDS: METOPROLOL SUCCINATE (ER) 50 MG TAB.ER.24H PO SCH ×2 (08:50→20:32)
[2022-09-09] MEDS: MAGNESIUM OXIDE 400 MG TAB PO SCH ×2 (08:50→20:32)
[2022-09-09] MEDS: FUROSEMIDE 10 MG/ML 4 ML VIAL IV SCH ×2 (08:50→20:32)
[2022-09-09] MEDS: NITROGLYCERIN OINT 1 INCH/GM PACKET TOPICAL SCH ×4 (08:51→22:28)
--- NOTE | 2022-09-09 11:37 | P.PN ---
Subjective Patient is a 71-year-old male with history of chronic kidney disease NKF stage IV with baseline creatinine around 2-3 range over the last year. He is admitted to the hospital with shortness of breath and edema. Currently being treated for CHF exacerbation and volume overload. Patient states that his breathing has improved. He continues to have significant edema in the lower extremities Maintained on 2 L of oxygen via nasal cannula and BiPAP 24 hour urine output of 1.89 L. Serum creatinine staying at 2.6-2.8 mg/dL Objective - Vital Signs Vital signs: Vital Signs Temp 97.8 F 09/09/22 11:16 Pulse 77 09/09/22 11:16 Resp 20 09/09/22 11:16 BP 127/76 09/09/22 11:16 Pulse Ox 98 09/09/22 11:16 FiO2 30 09/09/22 03:56 Intake & Output 09/08/22 09/09/22 09/09/22 18:59 06:59 18:59 Intake Total 600 118 Output Total 850 1720 340 Balance -250 -1720 -222 Weight 107.5 kg Intake: Oral 600 118 Output: Urine 650 1240 Stool 200 480 340 Other: Voiding Method Urinal Urinal # Bowel Movements 400 - Exam Patient is awake, comfortable, not in any acute distress mildly short of breath Examination of the heart S1 and S2 Examination lungs bilateral breath sounds are heard Abdomen is soft nontender Examination lower extremity shows edema 2+ bilaterally [employer] exam grossly intact - Labs CBC & Chem 7: 09/08/22 06:58 09/08/22 06:58 Labs: Abnormal Lab Results - Last 24 Hours (Table) 09/08/22 09/08/22 09/08/22 Range/Units 11:45 16:45 20:05 POC Glucose (mg/dL) 131 H 170 H 198 H (70-110) mg/dL Assessment and Plan Assessment: 1. Acute kidney injury mostly prerenal secondary to cardiorenal syndrome. Creatinine staying at 2.6-2.8 mg/dL. 2. Chronic kidney disease stage IV secondary to nephrosclerosis with baseline creatinine in the range of 2-3 over the last year. 3. Volume overload. 4. Acute on chronic diastolic CHF with moderate to severe tricuspid regurgitation, moderate mitral regurgitation and severe pulmonary hypertension. 5. Diabetes mellitus. 6. History of A. fib. Plan: Continue with IV Lasix every 8 hours Repeat labs in a.m. Monitor electrolytes Continue decreased dose of Cardizem
[2022-09-09 11:48] LABS: Glucose,Whole Blood 145 mg/dL (70-110)
[2022-09-09 12:27] LABS: Calcium 8.7 mg/dL (8.4-10.2); Potassium 3.8 mmol/L (3.5-5.1)
--- NOTE | 2022-09-09 13:35 | P.PN ---
Subjective Progress Note Date: 09/09/22 Faisal Andrade, is a 71 year old male who presented to [facility] emergency room with a chief complaint of severe shortness of breath, patient stated that he started having shortness of breath and cough 3-4 days prior to presentation and his symptom has been worsening. Patient was evaluated in the emergency room he was in acute respiratory distress he was started on BiPAP. He was evaluated in the emergency room vital examination on presentation revealed a temperature of 97.9 pulse 90 respiration 54 blood pressure 157/97 pulse ox 92% on BiPAP Laboratory data revealed a white blood count of 9.9 hemoglobin 13.7 platelet count 200 sodium 140 potassium 4.6 BUN 41 creatinine 2.29 troponin level 0.074 Testing in the emergency room revealed chest x-ray done in the emergency room revealed evidence of pulmonary venous congestion and the right lower lobe infiltrate as well as bilateral small pleural effusions, EKG revealed sinus rhythm with first-degree AV block and right bundle branch block Patient was admitted to medical floor for further evaluation and treatment, he was started on IV Lasix and IV antibiotics pulmonary consultation and cardiology consultation were requested On 09/06/2022 patient reports some improvement with shortness of breath. Patient remains on IV antibiotics Rocephin and azithromycin. Patient also maintained on IV Lasix. Cardiology and pulmonary services are following. Creatinine 2.82 and bun 47 this does appear chronic for patient will continue to monitor while patient is on IV Lasix. Patient denies chest pain. Patient does report some shortness of breast oh. Patient denies nausea vomiting or diarrhea. Patient denies any urinary burning or frequency On 09/07/2022 patient was seen and examined on the telemetry floor he is alert and oriented 3 in no apparent distress he is still complaining of shortness of breath and cough otherwise he denies any complaints there is no fever or chills no headache or dizziness no chest pain no nausea or vomiting no abdominal pain no diarrhea no blood in the stools no burning with urination no frequency or urgency and no hematuria. On 09/08/2022 patient was seen and examined on the medical floor he is alert and oriented 3 in no apparent distress he is still complaining of cough and shortness of breath with activity otherwise he denies any complaints there is no fever or chills no headache or dizziness no chest pain no nausea or vomiting no abdominal pain no diarrhea no blood in the stools no burning with urination no frequency or urgency and no hematuria. On 09/09/2022 patient was seen and examined on the medical floor, he is alert and oriented 3 in no apparent distress he is still complaining of severe shortness of breath with any activity otherwise he denies any complaints there is no fever or chills no headache or dizziness no chest pain, he has occasional cough no nausea or vomiting no abdominal pain no diarrhea no blood in the stools and no urinary symptoms, he is still maintained on IV Lasix, cardiology are following Objective - Vital Signs Vital signs: Vital Signs Temp 97.9 F 09/09/22 07:49 Pulse 81 09/09/22 07:50 Resp 21 09/09/22 07:50 BP 144/89 09/09/22 07:49 Pulse Ox 93 L 09/09/22 07:49 FiO2 30 09/09/22 03:56 Intake & Output 09/08/22 09/09/22 09/09/22 18:59 06:59 18:59 Intake Total 600 118 Output Total 850 1720 340 Balance -250 -1720 -222 Weight 107.5 kg Intake: Oral 600 118 Output: Urine 650 1240 Stool 200 480 340 Other: Voiding Method Urinal Urinal # Bowel Movements 400 - Exam In general patient is alert and oriented x 3 in no distress HEENT head normocephalic and atraumatic Neck is supple no JVD no goiter no lymphadenopathy no carotid bruit Chest examination revealed coarse crackles in both lung zhang no wheezing Cardiac exam reveals regular heart sounds S1 and S2 no gallops no murmurs Abdomen is soft nontender no organomegaly with normal bowel sounds Extremity exam reveals no edema no cyanosis or clubbing Neurological examination reveals no gross focal deficits - Labs CBC & Chem 7: 09/08/22 06:58 09/09/22 11:33 Labs: Abnormal Lab Results - Last 24 Hours (Table) 09/08/22 09/08/22 09/08/22 Range/Units 11:45 16:45 20:05 POC Glucose (mg/dL) 131 H 170 H 198 H (70-110) mg/dL Assessment and Plan Plan: Severe shortness of breath, with acute on chronic hypoxic respiratory failure Acute exacerbation of congestive heart failure with chest x-ray revealing evidence of pulmonary edema Underlying history of valvular heart disease, with history of aortic valve replacement in January 2015 Acute right lower lobe infiltrate suggestive of pneumonia Mild elevation in troponin level on presentation Underlying history of colon cancer status post surgery with ileostomy placement Underlying history of coronary artery disease with history of myocardial infarction in 2012 Underlying history of chronic kidney disease stage III Underlying history of insulin-dependent diabetes mellitus Underlying history of atrial fibrillation Underlying history of hypertension Underlying history of hyperlipidemia Underlying history of gout At this time patient is admitted to telemetry floor He was started on IV antibiotics and IV Lasix Home medications reviewed and reordered Cardiology consultation and pulmonary consultation requested For DVT prophylaxis patient is maintained on Eliquis Will follow closely during this admission
--- NOTE | 2022-09-09 13:51 | P.PN ---
Subjective Progress Note Date: 09/09/22 HISTORY OF PRESENT ILLNESS: Patient is pleasant 71-year-old male with history of persistent atrial fibrillation status post previous DILLAN and cardioversion, prior TIA, diabetes mellitus type 2, hyperlipidemia, hypertension, chronic kidney disease, obstructive sleep apnea, neuropathy congestive heart failure who presents secondary to increased shortness breath. He states the pharmacy would not fill his Lasix and therefore had been cutting the Lasix down to 1 a day and then ever y other day over the last week. He has noticed some increase in lower extremity edema. He has been feeling increasing shortness of breath and therefore eventually was at doctor's appointment and feeling more short of breath and EMS was called. Chest x-ray 09/04 showed congestive heart failure with possible underlying pneumonia. He denies any fevers or chills or cough. He shows sinus rhythm with prolonged [place] interval with right bundle branch block with nonspecific ST-T wave abnormalities. Creatinine 2.29 which appears as baseline with troponin 0.07 and proBNP 3300. Troponins have been chronically elevated in the past. He denies any chest pain or pressure. Previous echo 02/14 shows EF 55-60%, moderate LVH, mild aortic stenosis with prior bioprosthetic aortic valve, severe pulmonary hypertension RVSP 76, moderate to severe tricuspid regurgitation, moderate mitral regurgitation. 09/06 Patient seen and examined. He admits to good urine output with the Lasix 40 mg IV every 8 hours. Hemoglobin 12.6, BUN 47, creatinine 2.8. 09/07 Patient seen and examined. Patient denies any chest pain or pressure. States he is feeling mildly improved overall. Still having some shortness breath and some lower extremity edema. Admits to good urine output with the Lasix 40 mg IV. Cr mildly improved to 2.6 09/08 Patient seen and examined. Patient states he is feeling somewhat better day by day. Still somewhat wheezing on exam. Creatinine 2.7 which has been close to his baseline anywhere from 2.2 up to 3.0. Denies any chest pain or pressure. States he is still having good urine output with Lasix 40mg IV Q8 09/09/2022 Patient examined this morning at the bedside. Patient continues to report slow improvement in his breathing. He remains on Lasix 40 mg every 8 hours. Fluid balance over the last 24 hours is -1970 mL. Vital signs are stable. Creatinine 2.37. PHYSICAL EXAM: VITAL SIGNS: Reviewed. GENERAL: Well-developed in no acute distress. NECK: Supple. No JVD or thyromegaly LUNGS: Respirations even and unlabored. Lungs essentially clear to auscultation bilaterally, diminished. HEART: Regular rate and rhythm. S1 and S2 heard. EXTREMITIES: Normal range of motion. No clubbing or cyanosis. Peripheral pulses intact. Trace lower extremity edema ASSESSMENT: 1. Acute on chronic diastolic heart failure 2. History of prior bioprosthetic valve replacement 3. Moderate mitral regurgitation 4. Hypertension 5. Chronic kidney disease 6. Paroxysmal atrial fibrillation currently sinus rhythm 7. Troponin elevation not indicative of acute coronary syndrome, chronically elevated secondary to chronic kidney disease PLAN: 2-D echo ordered. Await results Continue current cardiac medications Decrease IV Lasix to every 12 hours Daily weights, accurate I&O, and monitoring of kidney function Further recommendations pending patient's course Patient to follow up outpatient with Dr. Bolaños Nurse practitioner note has been reviewed by physician. Signing provider agrees with the documented findings, assessment, and plan of care. Objective - Vital Signs Vital signs: Vital Signs Temp 97.8 F 09/09/22 11:16 Pulse 77 09/09/22 11:16 Resp 20 09/09/22 11:16 BP 127/76 09/09/22 11:16 Pulse Ox 98 09/09/22 11:16 FiO2 30 09/09/22 03:56 Intake & Output 09/08/22 09/09/22 09/09/22 18:59 06:59 18:59 Intake Total 600 118 Output Total 850 1720 340 Balance -250 -1720 -222 Weight 107.5 kg Intake: Oral 600 118 Output: Urine 650 1240 Stool 200 480 340 Other: Voiding Method Urinal Urinal # Bowel Movements 400 - Labs CBC & Chem 7: 09/08/22 06:58 09/09/22 11:33 Labs: Abnormal Lab Results - Last 24 Hours (Table) 09/08/22 09/08/22 09/09/22 Range/Units 16:45 20:05 11:47 POC Glucose (mg/dL) 170 H 198 H 145 H (70-110) mg/dL
--- NOTE | 2022-09-09 16:19 | P.PN ---
Subjective Progress Note Date: 09/09/22 Principal diagnosis: This is a 71-year-old white male with history of chronic atrial fibrillation, previous cardioversion, history of chronic kidney disease, obstructive sleep apnea, patient is normally maintained on Lasix at 40 mg by mouth twice a day. However the patient noted recently that he was getting short on Lasix, and his early refill was denied by his insurance company. Patient started cutting down on the Lasix from twice a day to once a day, and as he was noting that he will remain short before his next prescription refill, patient went down for a week to 40 mg every other day. Over the last 24 hours, patient has been noticing worsening shortness of breath, increased swelling in his lower extremities, and he got to the point that he couldn't breathe. Brought into ER, chest x-ray showed evidence of pulmonary edema and some consolidation in the right lower lobe. Patient had no symptoms to suggest pneumonia, no fever, no chills, no hemoptysis, and he had no chest pain. Patient was given diuretics in the ER, and clinically the patient stated that he is significantly better today compared to how he felt yesterday. Patient was placed on diuretics, and I was asked to see him on consultation. His BNP level was 3300. Previous echocardiogram showed pulmonary hypertension, moderate to severe tricuspid regurgitation, and moderate mitral regurgitation. His EF in the past has been noted to be 55-60%. The patient is seen today 09/06/2022 in follow-up on the selective care unit. He is currently sitting up at the bedside. Awake and alert in no acute distress. He is maintaining O2 saturations in the 90s on 2 L/m per nasal cannula. He has been utilizing CPAP at 13 cm water throughout the night. Normal saline at KVO. Ultrasound of the kidneys revealed no evidence of hydronephrosis or masses. Bladder is not distended. White count 7.3. Hem oglobin 12.6. Sodium 138. Potassium 4.8. Chloride 100. Bicarb 30. BUN 47. Creatinine 2.82. Glucose 185. He is continued on IV diuretics Lasix 40 mg every 8 hours. Antibiotics in the form of ceftriaxone and azithromycin. Anticoagulated with Eliquis. The patient is seen today 09/07/2022 in follow-up on the selective care unit. He is currently sitting up in a chair at the bedside. Currently wearing his CPAP at 13 cm of water. He states he is feeling better. Otherwise he is maintaining good O2 saturations in the 90s on 2 L/m per nasal cannula. He has less crackles posterior. He remains in a negative balance of 3 L. Follow-up chest x-ray shows continued cardiomegaly and improving pulmonary venous congestion. There is persistent right perihilar and right lower lobe infiltrate. Patchy density in the left medial lung bases well. White count 8.0. He will then 12.9. Sodium 140. Potassium 4.2. BUN 50. Creatinine 2.65. He is continued on Augmentin. Continued on IV Lasix. The patient is seen today 09/09/2022 in follow-up on the selective care unit. He is currently wearing his CPAP at 13 cm of water. Utilizing it throughout the night. Otherwise maintaining good O2 saturations in the 90s on 2 L. He sitting up in a chair. Sodium 141. Potassium 3.8. BUN 51. Creatinine 2.37. He is continued on antibiotics in the form of Augmentin. Remains on IV diuretics. Anticoagulated with Eliquis. Objective - Vital Signs Vital signs: Vital Signs Temp 97.5 F L 09/09/22 15:54 Pulse 84 09/09/22 15:54 Resp 20 09/09/22 15:54 BP 148/81 09/09/22 15:54 Pulse Ox 95 09/09/22 15:54 FiO2 30 09/09/22 15:42 Intake & Output 09/08/22 09/09/22 09/09/22 18:59 06:59 18:59 Intake Total 600 236 Output Total 850 1720 1215 Balance -250 1720 -979 Weight 107.5 kg Intake: Oral 600 236 Output: Urine 650 1240 775 Stool 200 480 440 Other: Voiding Method Urinal Urinal # Voids 1 # Bowel Movements 400 - Exam GENERAL EXAM: Alert, obese 71-year-old male, on 2 L nasal cannula, utilizing CPAP at 13 cm water, comfortable in no apparent distress. HEAD: Normocephalic. EYES: Normal reaction of pupils, equal size. NOSE: Clear with pink turbinates. THROAT: No erythema or exudates. NECK: No masses, no JVD. CHEST: No chest wall deformity. LUNGS: Equal air entry with fine crackles at the bases with few scattered rhonchi.. CVS: S1 and S2 normal with no audible murmur, regular rhythm. ABDOMEN: Obese. Ileostomy in place. No hepatosplenomegaly, normal bowel sounds, no guarding or rigidity. SPINE: No scoliosis or deformity SKIN: No rashes CENTRAL NERVOUS SYSTEM: No focal deficits, tone is normal in all 4 extremities. EXTREMITIES: There is 1+ peripheral edema. No clubbing, no cyanosis. Peripheral pulses are intact. - Labs CBC & Chem 7: 09/08/22 06:58 09/09/22 11:33 Labs: Abnormal Lab Results - Last 24 Hours (Table) 09/08/22 09/08/22 09/09/22 Range/Units 16:45 20:05 11:33 BUN 51 H (9-20) mg/dL Creatinine 2.37 H (0.66-1.25) mg/dL Glucose 148 H (74-99) mg/dL POC Glucose (mg/dL) 170 H 198 H (70-110) mg/dL 09/09/22 Range/Units 11:47 BUN (9-20) mg/dL Creatinine (0.66-1.25) mg/dL Glucose (74-99) mg/dL POC Glucose (mg/dL) 145 H (70-110) mg/dL Assessment and Plan Assessment: Acute hypoxemic respiratory failure secondary to chronic diastolic congestive heart failure, mostly because of noncompliance with the standard Lasix dose cannot rule out underlying immunity acquired pneumonia. Pro-calcitonin 0.24. Chronic right lower lobe consolidation, going back to 2020, based on previous x- rays of the chest and previous CT of the chest. Patient is following up with Dr. Connelly may eventually have to be considered for outpatient bronchoscopy Moderate mitral valve regurgitation Chronic kidney disease Paroxysmal atrial fibrillation Type 2 diabetes Dyslipidemia Obstructive sleep apnea syndrome, maintained on CPAP at 13 cm of water Hypothyroidism History of bowel resection and ileostomy Plan: The patient was seen and evaluated Labs and medications reviewed Improved but not quite back to his baseline Continue IV diuretics Continue Augmentin Titrate the FiO2 as tolerated Increase his activity as tolerated Follow-up chest x-ray in a.m. We will continue to follow I have personally seen and examined the patient, performed the documentation and the assessment and plan as written. Number of minutes spent on the visit: 10.
[2022-09-09 16:49] LABS: Glucose,Whole Blood 189 mg/dL (70-110)
[2022-09-09 20:11] LABS: Glucose,Whole Blood 211 mg/dL (70-110)
[2022-09-09] MEDS: CYCLOBENZAPRINE 10 MG TAB PO SCH (20:32)
[2022-09-09] MEDS: INSULIN DETEMIR (LEVEMIR) 100 UNIT/ML SYR SQ SCH (20:33)
[2022-09-09] MEDS: LATANOPROST 0.005% OPHTH DROPS 2.5 ML BTL BOTH EYES SCH (22:28)
[2022-09-10] MEDS: INSULIN ASPART (NovoLOG) 100 UNIT/ML VIAL SQ SCH ×4 (06:03→21:16)
[2022-09-10] MEDS: glipiZIDE 5 MG TAB PO SCH ×2 (06:03→16:48)
[2022-09-10] MEDS: PANTOPRAZOLE 40 MG TABLET PO SCH (06:03)
[2022-09-10 06:04] LABS: Glucose,Whole Blood 56 mg/dL (70-110)
[2022-09-10 06:18] LABS: Glucose,Whole Blood 53 mg/dL (70-110)
[2022-09-10] MEDS: DEXTROSE 50% SYRINGE 50 ML IVP PRN (06:24)
[2022-09-10 06:41] LABS: Glucose,Whole Blood 130 mg/dL (70-110)
[2022-09-10 07:58] LABS: Calcium 8.6 mg/dL (8.4-10.2); Potassium 3.7 mmol/L (3.5-5.1)
[2022-09-10] MEDS: PRAVASTATIN SODIUM 20 MG TAB PO SCH (09:32)
[2022-09-10] MEDS: METOPROLOL SUCCINATE (ER) 25 MG TAB.ER.24H PO SCH ×2 (09:32→21:30)
[2022-09-10] MEDS: HYDROcodone/APAP 10-325MG 1 EACH TAB PO SCH ×3 (09:32→22:48)
[2022-09-10] MEDS: MAGNESIUM OXIDE 400 MG TAB PO SCH ×2 (09:32→21:30)
[2022-09-10] MEDS: AMOXIC-POT CLAV 500-125 MG 1 EACH TAB PO SCH ×2 (09:32→21:30)
[2022-09-10] MEDS: APIXABAN 5 MG TAB PO SCH ×2 (09:33→21:30)
[2022-09-10] MEDS: FENOFIBRATE 160 MG TAB PO SCH (09:33)
[2022-09-10] MEDS: POTASSIUM CHLORIDE ER 10 MEQ TAB.ER.PRT PO SCH (09:33)
[2022-09-10] MEDS: DILTIAZEM ORAL 30 MG TAB PO SCH ×3 (09:34→22:48)
[2022-09-10] MEDS: FUROSEMIDE 40 MG TAB PO SCH ×2 (09:36→16:51)
--- NOTE | 2022-09-10 10:23 | XR ---
EXAMINATION TYPE: XR chest 1V portable DATE OF EXAM: 09/10/2022 COMPARISON: 09/07/2022 HISTORY: Shortness of breath TECHNIQUE: Single frontal view of the chest is obtained. FINDINGS: Postoperative changes with cardiomegaly is seen and there is underlying COPD with bibasila r infiltrate and small effusion. Mild coarsening of the interstitium. IMPRESSION: 1. COPD correlate for mild venous congestion favored over pneumonia.
--- NOTE | 2022-09-10 10:35 | P.PN ---
Subjective Progress Note Date: 09/10/22 HISTORY OF PRESENT ILLNESS: Patient is pleasant 71-year-old male with history of persistent atrial fibrillation status post previous DILLAN and cardioversion, prior TIA, diabetes mellitus type 2, hyperlipidemia, hypertension, chronic kidney disease, obstructive sleep apnea, neuropathy congestive heart failure who presents secondary to increased shortness breath. He states the pharmacy would not fill his Lasix and therefore had been cutting the Lasix down to 1 a day and then ever y other day over the last week. He has noticed some increase in lower extremity edema. He has been feeling increasing shortness of breath and therefore eventually was at doctor's appointment and feeling more short of breath and EMS was called. Chest x-ray 09/04 showed congestive heart failure with possible underlying pneumonia. He denies any fevers or chills or cough. He shows sinus rhythm with prolonged MN interval with right bundle branch block with nonspecific ST-T wave abnormalities. Creatinine 2.29 which appears as baseline with troponin 0.07 and proBNP 3300. Troponins have been chronically elevated in the past. He denies any chest pain or pressure. Previous echo 02/14 shows EF 55-60%, moderate LVH, mild aortic stenosis with prior bioprosthetic aortic valve, severe pulmonary hypertension RVSP 76, moderate to severe tricuspid regurgitation, moderate mitral regurgitation. 09/06 Patient seen and examined. He admits to good urine output with the Lasix 40 mg IV every 8 hours. Hemoglobin 12.6, BUN 47, creatinine 2.8. 09/07 Patient seen and examined. Patient denies any chest pain or pressure. States he is feeling mildly improved overall. Still having some shortness breath and some lower extremity edema. Admits to good urine output with the Lasix 40 mg IV. Cr mildly improved to 2.6 09/08 Patient seen and examined. Patient states he is feeling somewhat better day by day. Still somewhat wheezing on exam. Creatinine 2.7 which has been close to his baseline anywhere from 2.2 up to 3.0. Denies any chest pain or pressure. States he is still having good urine output with Lasix 40mg IV Q8 09/09/2022 Patient examined this morning at the bedside. Patient continues to report slow improvement in his breathing. He remains on Lasix 40 mg every 8 hours. Fluid balance over the last 24 hours is -1970 mL. Vital signs are stable. Creatinine 2.37. 09/10/2022 Patient examined this morning at the bedside. Patient denies chest pain or pressure. He denies shortness of breath. He remains on IV Lasix 40 mg every 12 hours. Vital signs are stable. PHYSICAL EXAM: VITAL SIGNS: Reviewed. GENERAL: Well-developed in no acute distress. NECK: Supple. No JVD or thyromegaly LUNGS: Respirations even and unlabored. Lungs essentially clear to auscultation bilaterally, diminished. HEART: Regular rate and rhythm. S1 and S2 heard. EXTREMITIES: Normal range of motion. No clubbing or cyanosis. Peripheral pulses intact. Trace lower extremity edema ASSESSMENT: 1. Acute on chronic diastolic heart failure 2. History of prior bioprosthetic valve replacement 3. Moderate mitral regurgitation 4. Hypertension 5. Chronic kidney disease 6. Paroxysmal atrial fibrillation currently sinus rhythm 7. Troponin elevation not indicative of acute coronary syndrome, chronically elevated secondary to chronic kidney disease PLAN: 2-D echo ordered. Await results Continue current cardiac medications Discontinue IV Lasix. Begin oral Lasix 40 mg twice a day Patient may be discharged home today from a cardiac standpoint Patient to follow up outpatient with Dr. Bolaños Nurse practitioner note has been reviewed by physician. Signing provider agrees with the documented findings, assessment, and plan of care. Objective - Vital Signs Vital signs: Vital Signs Temp 98.9 F 09/10/22 08:00 Pulse 94 09/10/22 08:00 Resp 16 09/10/22 08:00 BP 150/86 09/10/22 08:00 Pulse Ox 93 L 09/10/22 08:01 FiO2 30 09/10/22 03:40 Intake & Output 09/09/22 09/10/22 09/10/22 18:59 06:59 18:59 Intake Total 354 120 118 Output Total 1215 450 550 Balance -013 -197 -003 Weight 108.4 kg Intake: Oral 354 120 118 Output: Urine 775 350 550 Stool 440 100 Other: Voiding Method Urinal Urinal # Voids 1 2 - Labs CBC & Chem 7: 09/08/22 06:58 09/10/22 07:12 Labs: Abnormal Lab Results - Last 24 Hours (Table) 09/09/22 09/09/22 09/09/22 Range/Units 11:33 11:47 16:47 BUN 51 H (9-20) mg/dL Creatinine 2.37 H (0.66-1.25) mg/dL Glucose 148 H (74-99) mg/dL POC Glucose (mg/dL) 145 H 189 H (70-110) mg/dL 09/09/22 09/10/22 09/10/22 Range/Units 20:09 06:00 06:16 BUN (9-20) mg/dL Creatinine (0.66-1.25) mg/dL Glucose (74-99) mg/dL POC Glucose (mg/dL) 211 H 56 L 53 L (70-110) mg/dL 09/10/22 09/10/22 Range/Units 06:40 07:12 BUN 52 H (9-20) mg/dL Creatinine 2.19 H (0.66-1.25) mg/dL Glucose 112 H (74-99) mg/dL POC Glucose (mg/dL) 130 H (70-110) mg/dL
--- NOTE | 2022-09-10 11:16 | CA ---
Transthoracic Echo Report Name: Faisal Andrade Age: 71 Gender: M : 1950 Exam Date: 09/09/2022 09:20 Exam Location: [facility] Ht (in): 64 Wt (lb): 236 Ordering Physician: Guzman Partida DO ([id number]) Attending/Referring Phys: Warhead Maintenance Specialist Libertad Martin RDCS Procedure CPT: Indications: re: CHF Cardiac Hx: Technical Quality: Technically difficult study Contrast 1: Total Dose (mL): Contrast 2: Lumason Total Dose (mL): 4 MEASUREMENTS (Male / Female) Normal Values 2D ECHO LV Diastolic Diameter PLAX 3.8 cm 4.2 - 5.9 / 3.9 - 5.3 cm LV Systolic Diameter PLAX 2.7 cm IVS Diastolic Thickness 1.4 cm 0.6 - 1.0 / 0.6 - 0.9 cm LVPW Diastolic Thickness 2.0 cm 0.6 - 1.0 / 0.6 - 0.9 cm LV Relative Wall Thickness 0.9 RV Internal Dim ED PLAX 3.6 cm LVOT Diameter 1.6 cm LA Systolic Diameter LX 5.7 cm 3.0 - 4.0 / 2.7 - 3.8 cm DOPPLER AV Peak Velocity 453.9 cm/s AV Peak Gradient 82.4 mmHg AV Mean Velocity 320.3 cm/s AV Mean Gradient 45.0 mmHg AV Velocity Time Integral 97.2 cm LVOT Peak Velocity 91.5 cm/s LVOT Peak Gradient 3.3 mmHg LVOT Velocity Time Integral 21.0 cm LVOT Stroke Volume 40.6 cm??? LVOT Stroke Volume Index 19.3 ml/m??? AV Area Cont Eq vti 0.4 cm??? AV Area Cont Eq pk 0.4 cm??? MV Peak Velocity 268.6 cm/s MV Peak Gradient 28.8 mmHg MV Mean Velocity 169.5 cm/s MV Mean Gradient 13.2 mmHg MV Velocity Time Integral 66.5 cm MV Area PHT 2.4 cm??? Mitral E Point Velocity 206.7 cm/s Mitral A Point Velocity 199.4 cm/s Mitral E to A Ratio 1.0 MV Deceleration Time 197.1 ms FINDINGS Left Ventricle Moderately increased septal wall thickness. Left ventricular ejection fraction is estimated at 50-55%. Inferior basal hypokinesis. Right Ventricle Right ventricular dilatation. Right ventricular systolic pressure within normal limits. Right Atrium Normal right atrial size. Left Atrium Severely increased left atrial diameter. Mildly increased left atrial area. Mitral Valve Moderate mitral stenosis. Mv Peak gradient 28.8mmHg and mean Mv gradient of 13.2mmHg.[id number] mitral regurgitation. Severe mitral is calcification Aortic Valve bioprosthetic aortic valve with stenosis with a peak velocity of 43 m/s, peak gradient 82 mmHg, mean gradient 45 mmHg, and estimated aortic valve area of 0.4cm???. Mild aortic regurgitation with severe calcification of the valve Tricuspid Valve Structurally normal tricuspid valve. Mild tricuspid regurgitation. Pulmonic Valve Structurally normal pulmonic valve. Pericardium Normal pericardium. Aorta Normal size aortic root and proximal ascending aorta. CONCLUSIONS 1. Mildly impaired left ventricle systolic function with inferobasal hypokinesis 2. Bioprosthetic aortic valve with severe calcification and severe aortic stenosis and mild aortic regurgitation 3. Severe mitral annulus calcification with moderate to severe mitral regurgitation Previewed by: Dr. Fadia Bolaños MD (Electronically Signed) Final Date: 10 September 2022 11:15
[2022-09-10] MEDS: FUROSEMIDE 10 MG/ML 4 ML VIAL IV SCH (11:42)
[2022-09-10] MEDS: NITROGLYCERIN OINT 1 INCH/GM PACKET TOPICAL SCH (11:42)
[2022-09-10] MEDS: METOPROLOL SUCCINATE (ER) 50 MG TAB.ER.24H PO SCH (11:42)
[2022-09-10 11:54] LABS: Glucose,Whole Blood 152 mg/dL (70-110)
--- NOTE | 2022-09-10 12:27 | P.PN ---
Subjective Patient is a 71-year-old male with history of chronic kidney disease NKF stage IV with baseline creatinine around 2-3 range over the last year. He is admitted to the hospital with shortness of breath and edema. Currently being treated for CHF exacerbation and volume overload. Patient states that his breathing has improved. Lower extremity edema has improved as well Maintained on 2 L of oxygen via nasal cannula and BiPAP 24 hour urine output of 1.1 L. Serum creatinine down to 2.1 today Lasix switched to by mouth today Objective - Vital Signs Vital signs: Vital Signs Temp 98.9 F 09/10/22 08:00 Pulse 94 09/10/22 08:00 Resp 16 09/10/22 08:00 BP 150/86 09/10/22 08:00 Pulse Ox 93 L 09/10/22 08:01 FiO2 30 09/10/22 03:40 Intake & Output 09/09/22 09/10/22 09/10/22 18:59 06:59 18:59 Intake Total 354 120 118 Output Total 1215 450 550 Balance -861 -330 -432 Weight 108.4 kg Intake: Oral 354 120 118 Output: Urine 775 350 550 Stool 440 100 Other: Voiding Method Urinal Urinal Urinal # Voids 1 2 - Exam Patient is awake, comfortable, not in any acute distress mildly short of breath Examination of the heart S1 and S2 Examination lungs bilateral breath sounds are heard Abdomen is soft nontender Examination lower extremity shows edema 2+ bilaterally WELDER REPAIR exam grossly intact - Labs CBC & Chem 7: 09/08/22 06:58 09/10/22 07:12 Labs: Abnormal Lab Results - Last 24 Hours (Table) 09/09/22 09/09/22 09/09/22 Range/Units 11:33 16:47 20:09 BUN 51 H (9-20) mg/dL Creatinine 2.37 H (0.66-1.25) mg/dL Glucose 148 H (74-99) mg/dL POC Glucose (mg/dL) 189 H 211 H (70-110) mg/dL 09/10/22 09/10/22 09/10/22 Range/Units 06:00 06:16 06:40 BUN (9-20) mg/dL Creatinine (0.66-1.25) mg/dL Glucose (74-99) mg/dL POC Glucose (mg/dL) 56 L 53 L 130 H (70-110) mg/dL 09/10/22 09/10/22 Range/Units 07:12 11:48 BUN 52 H (9-20) mg/dL Creatinine 2.19 H (0.66-1.25) mg/dL Glucose 112 H (74-99) mg/dL POC Glucose (mg/dL) 152 H (70-110) mg/dL Assessment and Plan Assessment: 1. Acute kidney injury mostly prerenal secondary to cardiorenal syndrome. Creatinine staying at 2.6-2.8 mg/dL. Decreased to 2.1 today 2. Chronic kidney disease stage IV secondary to nephrosclerosis with baseline creatinine in the range of 2-3 over the last year. 3. Volume overload. 4. Acute on chronic diastolic CHF with moderate to severe tricuspid regurgitation, moderate mitral regurgitation and severe pulmonary hypertension. 5. Diabetes mellitus. 6. History of A. fib. Plan: Switched to oral Lasix this morning Repeat labs in a.m. Monitor electrolytes Continue decreased dose of Cardizem
--- NOTE | 2022-09-10 14:42 | P.PN ---
Subjective Progress Note Date: 09/10/22 Principal diagnosis: Shortness of breath. The patient is seen today 09/06/2022 in follow-up on the selective care unit. He is currently sitting up at the bedside. Awake and alert in no acute distress. He is maintaining O2 saturations in the 90s on 2 L/m per nasal cannula. He has been utilizing CPAP at 13 cm water throughout the night. Normal saline at KVO. Ultrasound of the kidneys revealed no evidence of hydronephrosis or masses. Bladder is not distended. White count 7.3. Hemoglobin 12.6. Sodium 138. Potassium 4.8. Chloride 100. Bicarb 30. BUN 47. Creatinine 2.82. Glucose 185. He is continued on IV diuretics Lasix 40 mg every 8 hours. Antibiotics in the form of ceftriaxone and azithromycin. Anticoagulated with Eliquis. The patient is seen today 09/07/2022 in follow-up on the selective care unit. He is currently sitting up in a chair at the bedside. Currently wearing his CPAP at 13 cm of water. He states he is feeling better. Otherwise he is maintaining good O2 saturations in the 90s on 2 L/m per nasal cannula. He has less crackles posterior. He remains in a negative balance of 3 L. Follow-up chest x-ray shows continued cardiomegaly and improving pulmonary venous congestion. There is persistent right perihilar and right lower lobe in filtrate. Patchy density in the left medial lung bases well. White count 8.0. He will then 12.9. Sodium 140. Potassium 4.2. BUN 50. Creatinine 2.65. He is continued on Augmentin. Continued on IV Lasix. The patient is seen today 09/09/2022 in follow-up on the selective care unit. He is currently wearing his CPAP at 13 cm of water. Utilizing it throughout the night. Otherwise maintaining good O2 saturations in the 90s on 2 L. He sitting up in a chair. Sodium 141. Potassium 3.8. BUN 51. Creatinine 2.37. He is continued on antibiotics in the form of Augmentin. Remains on IV diuretics. Anticoagulated with Eliquis. Progress note dated 09/10/2022. The patient is seen today in room 371. He sitting at the edge of the bed. He is on 3 L of oxygen. He is getting saline at 20 mL an hour. He uses CPAP throughout the night, at 13 cm water. Sometimes he'll use it in the daytime as well. Clinically, he is doing much better. He short of breath on exertion. The patient does have some lower extremity edema. He denies any chest pain or chest discomfort. He denies any cough, wheezing, or phlegm production. Sodium 144, potassium 3.7, chlorides 107, CO2 30, BUN 52, and creatinine 2.19. Glucose 112. Objective - Vital Signs Vital signs: Vital Signs Temp 98.9 F 09/10/22 08:00 Pulse 94 09/10/22 13:54 Resp 16 09/10/22 13:54 BP 148/81 09/10/22 12:00 Pulse Ox 95 09/10/22 12:00 FiO2 30 09/10/22 03:40 Intake & Output 09/09/22 09/10/22 09/10/22 18:59 06:59 18:59 Intake Total 354 120 118 Output Total 1215 450 600 Balance -861 -330 -482 Weight 108.4 kg Intake: Oral 354 120 118 Output: Urine 775 350 550 Stool 440 100 50 Other: Voiding Method Urinal Urinal Urinal # Voids 1 2 - Exam No acute distress, oriented 3. No conversational dyspnea or use of accessory muscles. The patient's on 3 L of oxygen. HEENT examination is grossly unremarkable. Neck supple. Full range of motion. No adenopathy thyromegaly or neck vein distention. Cardiovascular examination reveals regular rhythm rate. S1-S2 normal. No S3 or S4. No discernible murmur noted. Heart sounds are distant. Heart rate 65 bpm. Lungs reveal bibasilar crackles. Breath sounds equal. No wheezes or rhonchi. Saturations are 95%. Abdomen soft bowel sounds are heard. No masses or tenderness. Extremities reveal mild edema. No cyanosis or clubbing. I still Skin is without rash or lesion. Neurologic examination is brief but nonfocal. - Labs CBC & Chem 7: 09/08/22 06:58 09/10/22 07:12 Labs: Abnormal Lab Results - Last 24 Hours (Table) 09/09/22 09/09/22 09/10/22 Range/Units 16:47 20:09 06:00 BUN (9-20) mg/dL Creatinine (0.66-1.25) mg/dL Glucose (74-99) mg/dL POC Glucose (mg/dL) 189 H 211 H 56 L (70-110) mg/dL 09/10/22 09/10/22 09/10/22 Range/Units 06:16 06:40 07:12 BUN 52 H (9-20) mg/dL Creatinine 2.19 H (0.66-1.25) mg/dL Glucose 112 H (74-99) mg/dL POC Glucose (mg/dL) 53 L 130 H (70-110) mg/dL 09/10/22 Range/Units 11:48 BUN (9-20) mg/dL Creatinine (0.66-1.25) mg/dL Glucose (74-99) mg/dL POC Glucose (mg/dL) 152 H (70-110) mg/dL Assessment and Plan Assessment: Acute hypoxemic respiratory failure secondary to chronic diastolic congestive heart failure. Chronic right lower lobe consolidation, going back to 2020, based on previous x-rays of the chest and previous CT of the chest. Moderate mitral valve regurgitation. Chronic kidney disease. Paroxysmal atrial fibrillation. Type 2 diabetes. Dyslipidemia. Obstructive sleep apnea syndrome, maintained on CPAP at 13 cm of water. Hypothyroidism. History of bowel resection and ileostomy. Plan: Plan dated 09/10/2022. The patient's doing better. He is currently sitting at the bedside on 3 L. Labs, x-rays, and medications are reviewed. He does use CPAP, at 13 cm of water, exclusively at nighttime, and sometimes in the daytime when he gets fatigued or tired. He denies any chest pain or chest discomfort. He is not coughing up producing any phlegm. We will continue to follow the patient and make recommendations along the way. Time with Patient: Less than 30
[2022-09-10 16:46] LABS: Glucose,Whole Blood 240 mg/dL (70-110)
--- NOTE | 2022-09-10 17:51 | P.PN ---
Subjective Progress Note Date: 09/10/22 Faisal Andrade, is a 71 year old male who presented to [facility] emergency room with a chief complaint of severe shortness of breath, patient stated that he started having shortness of breath and cough 3-4 days prior to presentation and his symptom has been worsening. Patient was evaluated in the emergency room he was in acute respiratory distress he was started on BiPAP. He was evaluated in the emergency room vital examination on presentation revealed a temperature of 97.9 pulse 90 respiration 54 blood pressure 157/97 pulse ox 92% on BiPAP Laboratory data revealed a white blood count of 9.9 hemoglobin 13.7 platelet count 200 sodium 140 potassium 4.6 BUN 41 creatinine 2.29 troponin level 0.074 Testing in the emergency room revealed chest x-ray done in the emergency room revealed evidence of pulmonary venous congestion and the right lower lobe infiltrate as well as bilateral small pleural effusions, EKG revealed sinus rhythm with first-degree AV block and right bundle branch block Patient was admitted to medical floor for further evaluation and treatment, he was started on IV Lasix and IV antibiotics pulmonary consultation and cardiology consultation were requested On 09/06/2022 patient reports some improvement with shortness of breath. Patient remains on IV antibiotics Rocephin and azithromycin. Patient also maintained on IV Lasix. Cardiology and pulmonary services are following. Creatinine 2.82 and bun 47 this does appear chronic for patient will continue to monitor while patient is on IV Lasix. Patient denies chest pain. Patient does report some shortness of breast oh. Patient denies nausea vomiting or diarrhea. Patient denies any urinary burning or frequency On 09/07/2022 patient was seen and examined on the telemetry floor he is alert and oriented 3 in no apparent distress he is still complaining of shortness of breath and cough otherwise he denies any complaints there is no fever or chills no headache or dizziness no chest pain no nausea or vomiting no abdominal pain no diarrhea no blood in the stools no burning with urination no frequency or urgency and no hematuria. On 09/08/2022 patient was seen and examined on the medical floor he is alert and oriented 3 in no apparent distress he is still complaining of cough and shortness of breath with activity otherwise he denies any complaints there is no fever or chills no headache or dizziness no chest pain no nausea or vomiting no abdominal pain no diarrhea no blood in the stools no burning with urination no frequency or urgency and no hematuria. On 09/09/2022 patient was seen and examined on the medical floor, he is alert and oriented 3 in no apparent distress he is still complaining of severe shortness of breath with any activity otherwise he denies any complaints there is no fever or chills no headache or dizziness no chest pain, he has occasional cough no nausea or vomiting no abdominal pain no diarrhea no blood in the stools and no urinary symptoms, he is still maintained on IV Lasix, cardiology are following On 09/10/2022 patient was seen and examined on the medical floor, he is alert and oriented 3 in no he is still complaining of severe shortness of breath with any activity otherwise he denies any complaints there is no fever or chills no headache or dizziness no chest pain, he has occasional cough no nausea or vomiting no abdominal pain no diarrhea no blood in the stools and no urinary symptoms, he is still maintained on IV Lasix, cardiology and nephrology are following Objective - Vital Signs Vital signs: Vital Signs Temp 98 F 09/10/22 04:00 Pulse 65 09/10/22 04:00 Resp 20 09/10/22 04:00 BP 136/84 09/10/22 04:00 Pulse Ox 93 L 09/10/22 08:01 FiO2 30 09/10/22 03:40 Intake & Output 09/09/22 09/10/22 09/10/22 18:59 06:59 18:59 Intake Total 354 120 118 Output Total 1215 450 550 Balance -861 -330 -432 Weight 108.4 kg Intake: Oral 354 120 118 Output: Urine 775 350 550 Stool 440 100 Other: Voiding Method Urinal Urinal # Voids 1 2 - Exam In general patient is alert and oriented x 3 in no distress HEENT head normocephalic and atraumatic Neck is supple no JVD no goiter no lymphadenopathy no carotid bruit Chest examination revealed coarse crackles in both lung zhang no wheezing Cardiac exam reveals regular heart sounds S1 and S2 no gallops no murmurs Abdomen is soft nontender no organomegaly with normal bowel sounds Extremity exam reveals no edema no cyanosis or clubbing Neurological examination reveals no gross focal deficits - Labs CBC & Chem 7: 09/08/22 06:58 09/10/22 07:12 Labs: Abnormal Lab Results - Last 24 Hours (Table) 09/09/22 09/09/22 09/09/22 Range/Units 11:33 11:47 16:47 BUN 51 H (9-20) mg/dL Creatinine 2.37 H (0.66-1.25) mg/dL Glucose 148 H (74-99) mg/dL POC Glucose (mg/dL) 145 H 189 H (70-110) mg/dL 09/09/22 09/10/22 09/10/22 Range/Units 20:09 06:00 06:16 BUN (9-20) mg/dL Creatinine (0.66-1.25) mg/dL Glucose (74-99) mg/dL POC Glucose (mg/dL) 211 H 56 L 53 L (70-110) mg/dL 09/10/22 09/10/22 Range/Units 06:40 07:12 BUN 52 H (9-20) mg/dL Creatinine 2.19 H (0.66-1.25) mg/dL Glucose 112 H (74-99) mg/dL POC Glucose (mg/dL) 130 H (70-110) mg/dL Assessment and Plan Plan: Severe shortness of breath, with acute on chronic hypoxic respiratory failure Acute exacerbation of congestive heart failure with chest x-ray revealing evidence of pulmonary edema Underlying history of valvular heart disease, with history of aortic valve replacement in January 2015 Acute right lower lobe infiltrate suggestive of pneumonia Mild elevation in troponin level on presentation Underlying history of colon cancer status post surgery with ileostomy placement Underlying history of coronary artery disease with history of myocardial infarction in 2012 Underlying history of chronic kidney disease stage III Underlying history of insulin-dependent diabetes mellitus Underlying history of atrial fibrillation Underlying history of hypertension Underlying history of hyperlipidemia Underlying history of gout At this time patient is admitted to telemetry floor He was started on IV antibiotics and IV Lasix Home medications reviewed and reordered Cardiology consultation and pulmonary consultation requested For DVT prophylaxis patient is maintained on Eliquis Will follow closely during this admission
[2022-09-10 20:07] LABS: Glucose,Whole Blood 131 mg/dL (70-110)
[2022-09-10] MEDS: CYCLOBENZAPRINE 10 MG TAB PO SCH (21:30)
[2022-09-10] MEDS: INSULIN DETEMIR (LEVEMIR) 100 UNIT/ML SYR SQ SCH (21:31)
[2022-09-10] MEDS: LATANOPROST 0.005% OPHTH DROPS 2.5 ML BTL BOTH EYES SCH (21:31)
[2022-09-11 05:58] LABS: Glucose,Whole Blood 106 mg/dL (70-110)
[2022-09-11] MEDS: INSULIN ASPART (NovoLOG) 100 UNIT/ML VIAL SQ SCH ×4 (06:23→21:05)
[2022-09-11] MEDS: glipiZIDE 5 MG TAB PO SCH ×2 (06:27→17:32)
[2022-09-11] MEDS: PANTOPRAZOLE 40 MG TABLET PO SCH (06:27)
[2022-09-11] MEDS: HYDROcodone/APAP 10-325MG 1 EACH TAB PO SCH ×3 (09:10→23:00)
[2022-09-11] MEDS: POTASSIUM CHLORIDE ER 10 MEQ TAB.ER.PRT PO SCH (09:10)
[2022-09-11] MEDS: PRAVASTATIN SODIUM 20 MG TAB PO SCH (09:10)
[2022-09-11] MEDS: FUROSEMIDE 40 MG TAB PO SCH ×2 (09:10→17:32)
[2022-09-11] MEDS: DILTIAZEM ORAL 30 MG TAB PO SCH ×3 (09:11→23:00)
[2022-09-11] MEDS: METOPROLOL SUCCINATE (ER) 25 MG TAB.ER.24H PO SCH ×2 (09:11→21:05)
[2022-09-11] MEDS: APIXABAN 5 MG TAB PO SCH ×2 (09:11→21:05)
[2022-09-11] MEDS: ERGOCALCIFEROL 1,250 MCG (50,000 IU) CAPSULE PO SCH (09:11)
[2022-09-11] MEDS: MAGNESIUM OXIDE 400 MG TAB PO SCH ×2 (09:11→21:05)
[2022-09-11] MEDS: AMOXIC-POT CLAV 500-125 MG 1 EACH TAB PO SCH ×2 (09:11→21:05)
[2022-09-11] MEDS: FENOFIBRATE 160 MG TAB PO SCH (09:11)
[2022-09-11 11:48] LABS: Glucose,Whole Blood 139 mg/dL (70-110)
--- NOTE | 2022-09-11 13:24 | P.PN ---
Subjective Progress Note Date: 09/11/22 Principal diagnosis: Shortness of breath. The patient is seen today 09/06/2022 in follow-up on the selective care unit. He is currently sitting up at the bedside. Awake and alert in no acute distress. He is maintaining O2 saturations in the 90s on 2 L/m per nasal cannula. He has been utilizing CPAP at 13 cm water throughout the night. Normal saline at KVO. Ultrasound of the kidneys revealed no evidence of hydronephrosis or masses. Bladder is not distended. White count 7.3. Hemoglobin 12.6. Sodium 138. Potassium 4.8. Chloride 100. Bicarb 30. BUN 47. Creatinine 2.82. Glucose 185. He is continued on IV diuretics Lasix 40 mg every 8 hours. Antibiotics in the form of ceftriaxone and azithromycin. Anticoagulated with Eliquis. The patient is seen today 09/07/2022 in follow-up on the selective care unit. He is currently sitting up in a chair at the bedside. Currently wearing his CPAP at 13 cm of water. He states he is feeling better. Otherwise he is maintaining good O2 saturations in the 90s on 2 L/m per nasal cannula. He has less crackles posterior. He remains in a negative balance of 3 L. Follow-up chest x-ray shows continued cardiomegaly and improving pulmonary venous congestion. There is persistent right perihilar and right lower lobe in filtrate. Patchy density in the left medial lung bases well. White count 8.0. He will then 12.9. Sodium 140. Potassium 4.2. BUN 50. Creatinine 2.65. He is continued on Augmentin. Continued on IV Lasix. The patient is seen today 09/09/2022 in follow-up on the selective care unit. He is currently wearing his CPAP at 13 cm of water. Utilizing it throughout the night. Otherwise maintaining good O2 saturations in the 90s on 2 L. He sitting up in a chair. Sodium 141. Potassium 3.8. BUN 51. Creatinine 2.37. He is continued on antibiotics in the form of Augmentin. Remains on IV diuretics. Anticoagulated with Eliquis. Progress note dated 09/10/2022. The patient is seen today in room 371. He sitting at the edge of the bed. He is on 3 L of oxygen. He is getting saline at 20 mL an hour. He uses CPAP throughout the night, at 13 cm water. Sometimes he'll use it in the daytime as well. Clinically, he is doing much better. He short of breath on exertion. The patient does have some lower extremity edema. He denies any chest pain or chest discomfort. He denies any cough, wheezing, or phlegm production. Sodium 144, potassium 3.7, chlorides 107, CO2 30, BUN 52, and creatinine 2.19. Glucose 112. Progress note dated 09/11/2022. The patient is again seen in room 371. He is sitting on the edge of the bed. He is on oxygen at 3 L. At nighttime, he uses his CPAP at 13 cm water. He sometimes uses CPAP during the daytime, when he naps. Clinically, the patient is improved, and could be considered for possible discharge in the near future. No new labs today other than a glucose of 139. No chest x-ray today to speak of. Objective - Vital Signs Vital signs: Vital Signs Temp 98.1 F 09/11/22 08:00 Pulse 83 09/11/22 12:00 Resp 16 09/11/22 12:00 BP 143/84 09/11/22 12:00 Pulse Ox 95 09/11/22 12:00 FiO2 30 09/11/22 03:23 Intake & Output 09/10/22 09/11/22 09/11/22 18:59 06:59 18:59 Intake Total 562 118 Output Total 1750 2850 1100 Balance -1188 -2850 -982 Weight 108.5 kg Intake: Oral 562 118 Output: Urine 1700 1050 250 Stool 50 1800 850 Other: Voiding Method Urinal Urinal Urinal - Exam No acute distress, oriented 3. No conversational dyspnea or use of accessory muscles. The patient's on 3 L of oxygen. HEENT examination is grossly unremarkable. Neck supple. Full range of motion. No adenopathy thyromegaly or neck vein distention. Cardiovascular examination reveals regular rhythm rate. S1-S2 normal. No S3 or S4. No discernible murmur noted. Heart sounds are distant. Heart rate 80 bpm. Lungs reveal bibasilar crackles. Breath sounds equal. No wheezes or rhonchi. Saturations are 95%. Abdomen soft bowel sounds are heard. No masses or tenderness. Extremities reveal mild edema. No cyanosis or clubbing. Mild edema noted. Skin is without rash or lesion. Neurologic examination is brief but nonfocal. - Labs CBC & Chem 7: 09/08/22 06:58 09/10/22 07:12 Labs: Abnormal Lab Results - Last 24 Hours (Table) 09/10/22 09/10/22 09/11/22 Range/Units 16:24 20:05 11:44 POC Glucose (mg/dL) 240 H 131 H 139 H (70-110) mg/dL Assessment and Plan Assessment: Acute hypoxemic respiratory failure secondary to chronic diastolic congestive heart failure. Chronic right lower lobe consolidation, going back to 2020, based on previous x- rays of the chest and previous CT of the chest. Moderate mitral valve regurgitation. Chronic kidney disease. Paroxysmal atrial fibrillation. Type 2 diabetes. Dyslipidemia. Obstructive sleep apnea syndrome, maintained on CPAP at 13 cm of water. Hypothyroidism. History of bowel resection and ileostomy. Plan: Plan dated 09/10/2022. The patient's doing better. He is currently sitting at the bedside on 3 L. Labs, x-rays, and medications are reviewed. He does use CPAP, at 13 cm of water, exclusively at nighttime, and sometimes in the daytime when he gets fatigued or tired. He denies any chest pain or chest discomfort. He is not coughing up producing any phlegm. We will continue to follow the patient and make recommendations along the way. Plan dated 09/11/2022. The patient appears to be doing much better, and could be considered for possible discharge in the next day or so. Clinically, he is much improved. The patient is currently on 3 L. He does use his CPAP device sometime during the daytime, and almost all the time at nighttime. Labs, x-rays, medications are reviewed. The patient could be considered for discharge in the near future. We will continue to follow make recommendations along the way. Time with Patient: Less than 30
--- NOTE | 2022-09-11 14:37 | PN ---
PROGRESS NOTE Mr. Andrade is actually feeling much better today. He has no chest pain or shortness of breath. His breathing is much easier. He has a history of persistent atrial fibrillation, previous DILLAN and cardioversion. He also has hypertension, hyperlipidemia, and chronic obstructive CAD. He has history of previous bioprosthetic aortic valve and also significant mitral valve disease. Ejection fraction is well preserved, but significant valvular disease. However, on current medical regimen, he is doing very well. He is on oral Lasix. Advised to continue same medications, increase activity, and he can be discharged and see Dr. Bolaños in 2 weeks. To call for question, concern, or problem. MMODL / IJN: [id number] /
[2022-09-11 16:50] LABS: Glucose,Whole Blood 187 mg/dL (70-110)
--- NOTE | 2022-09-11 17:07 | P.PN ---
Subjective Patient is a 71-year-old male with history of chronic kidney disease NKF stage IV with baseline creatinine around 2-3 range over the last year. He is admitted to the hospital with shortness of breath and edema. Currently being treated for CHF exacerbation and volume overload. Patient states that his breathing has improved. Lower extremity edema has improved as well Maintained on 3 L of oxygen via nasal cannula and BiPAP 24 hour urine output of 1.1 L. Serum creatinine down to 2.7 today Lasix switched to by mouth Objective - Vital Signs Vital signs: Vital Signs Temp 98.1 F 09/11/22 08:00 Pulse 83 09/11/22 12:00 Resp 16 09/11/22 12:00 BP 143/84 09/11/22 12:00 Pulse Ox 95 09/11/22 12:00 FiO2 30 09/11/22 03:23 Intake & Output 09/10/22 09/11/22 09/11/22 18:59 06:59 18:59 Intake Total 562 236 Output Total 1750 2850 1550 Balance -1188 -2850 -1314 Weight 108.5 kg Intake: Oral 562 236 Output: Urine 1700 1050 450 Stool 50 1800 1100 Other: Voiding Method Urinal Urinal Urinal - Exam Patient is awake, comfortable, not in any acute distress mildly short of breath Examination of the heart S1 and S2 Examination lungs bilateral breath sounds are heard Abdomen is soft nontender Examination lower extremity shows edema 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 Acute kidney injury mostly prerenal secondary to cardiorenal syndrome. Creatinine staying at 2.6-2.8 mg/dL. Decreased to 2.1 2. Chronic kidney disease stage IV secondary to nephrosclerosis with baseline creatinine in the range of 2-3 over the last year. 3. Volume overload. 4. Acute on chronic diastolic CHF with moderate to severe tricuspid regurgitation, moderate mitral regurgitation and severe pulmonary hypertension. 5. Diabetes mellitus. 6. History of A. fib. Plan: Continue current dose of oral diuretics Repeat labs in a.m. Monitor electrolytes Continue decreased dose of Cardizem
--- NOTE | 2022-09-11 17:36 | P.PN ---
Subjective Progress Note Date: 09/11/22 Faisal Andrade, is a 71 year old male who presented to [facility] emergency room with a chief complaint of severe shortness of breath, patient stated that he started having shortness of breath and cough 3-4 days prior to presentation and his symptom has been worsening. Patient was evaluated in the emergency room he was in acute respiratory distress he was started on BiPAP. He was evaluated in the emergency room vital examination on presentation revealed a temperature of 97.9 pulse 90 respiration 54 blood pressure 157/97 pulse ox 92% on BiPAP Laboratory data revealed a white blood count of 9.9 hemoglobin 13.7 platelet count 200 sodium 140 potassium 4.6 BUN 41 creatinine 2.29 troponin level 0.074 Testing in the emergency room revealed chest x-ray done in the emergency room revealed evidence of pulmonary venous congestion and the right lower lobe infiltrate as well as bilateral small pleural effusions, EKG revealed sinus rhythm with first-degree AV block and right bundle branch block Patient was admitted to medical floor for further evaluation and treatment, he was started on IV Lasix and IV antibiotics pulmonary consultation and cardiology consultation were requested On 09/06/2022 patient reports some improvement with shortness of breath. Patient remains on IV antibiotics Rocephin and azithromycin. Patient also maintained on IV Lasix. Cardiology and pulmonary services are following. Creatinine 2.82 and bun 47 this does appear chronic for patient will continue to monitor while patient is on IV Lasix. Patient denies chest pain. Patient does report some shortness of breast oh. Patient denies nausea vomiting or diarrhea. Patient denies any urinary burning or frequency On 09/07/2022 patient was seen and examined on the telemetry floor he is alert and oriented 3 in no apparent distress he is still complaining of shortness of breath and cough otherwise he denies any complaints there is no fever or chills no headache or dizziness no chest pain no nausea or vomiting no abdominal pain no diarrhea no blood in the stools no burning with urination no frequency or urgency and no hematuria. On 09/08/2022 patient was seen and examined on the medical floor he is alert and oriented 3 in no apparent distress he is still complaining of cough and shortness of breath with activity otherwise he denies any complaints there is no fever or chills no headache or dizziness no chest pain no nausea or vomiting no abdominal pain no diarrhea no blood in the stools no burning with urination no frequency or urgency and no hematuria. On 09/09/2022 patient was seen and examined on the medical floor, he is alert and oriented 3 in no apparent distress he is still complaining of severe shortness of breath with any activity otherwise he denies any complaints there is no fever or chills no headache or dizziness no chest pain, he has occasional cough no nausea or vomiting no abdominal pain no diarrhea no blood in the stools and no urinary symptoms, he is still maintained on IV Lasix, cardiology are following On 09/10/2022 patient was seen and examined on the medical floor, he is alert and oriented 3 in no he is still complaining of severe shortness of breath with any activity otherwise he denies any complaints there is no fever or chills no headache or dizziness no chest pain, he has occasional cough no nausea or vomiting no abdominal pain no diarrhea no blood in the stools and no urinary symptoms, he is still maintained on IV Lasix, cardiology and nephrology are following On 09/11/2022 patient was seen and examined on the telemetry floor he is alert and oriented 3 in no apparent distress IV Lasix was discontinued yesterday and patient was started on oral Lasix today he is complaining of worsening shortness of breath today otherwise he denies any complaints there is no fever or chills no headache or dizziness there is occasional cough no chest pain no nausea or vomiting no abdominal pain no diarrhea and no urinary symptoms. Plan is to continue with oral Lasix recheck chest x-ray and labs in a.m. possible discharge to home tomorrow if stable Objective - Vital Signs Vital signs: Vital Signs Temp 98.0 F 09/10/22 20:00 Pulse 87 09/11/22 04:00 Resp 15 09/11/22 04:00 BP 147/82 09/11/22 04:00 Pulse Ox 97 09/11/22 04:00 FiO2 30 09/11/22 03:23 Intake & Output 09/10/22 09/11/22 09/11/22 18:59 06:59 18:59 Intake Total 562 Output Total 1750 2850 Balance -1188 -2850 Weight 108.5 kg Intake: Oral 562 Output: Urine 1700 1050 Stool 50 1800 Other: Voiding Method Urinal Urinal - Exam In general patient is alert and oriented x 3 in no distress HEENT head normocephalic and atraumatic Neck is supple no JVD no goiter no lymphadenopathy no carotid bruit Chest examination revealed coarse crackles in both lung zhang no wheezing Cardiac exam reveals regular heart sounds S1 and S2 no gallops no murmurs Abdomen is soft nontender no organomegaly with normal bowel sounds Extremity exam reveals no edema no cyanosis or clubbing Neurological examination reveals no gross focal deficits - Labs CBC & Chem 7: 09/08/22 06:58 09/10/22 07:12 Labs: Abnormal Lab Results - Last 24 Hours (Table) 09/10/22 09/10/22 09/10/22 Range/Units 11:48 16:24 20:05 POC Glucose (mg/dL) 152 H 240 H 131 H (70-110) mg/dL Assessment and Plan Plan: Severe shortness of breath, with acute on chronic hypoxic respiratory failure Acute exacerbation of congestive heart failure with chest x-ray revealing evidence of pulmonary edema Underlying history of valvular heart disease, with history of aortic valve replacement in January 2015 Acute right lower lobe infiltrate suggestive of pneumonia Mild elevation in troponin level on presentation Underlying history of colon cancer status post surgery with ileostomy placement Underlying history of coronary artery disease with history of myocardial infarction in 2012 Underlying history of chronic kidney disease stage III Underlying history of insulin-dependent diabetes mellitus Underlying history of atrial fibrillation Underlying history of hypertension Underlying history of hyperlipidemia Underlying history of gout At this time patient is admitted to telemetry floor He was started on IV antibiotics and IV Lasix Home medications reviewed and reordered Cardiology consultation and pulmonary consultation requested For DVT prophylaxis patient is maintained on Eliquis Will follow closely during this admission
[2022-09-11] MEDS ORDERED: FUROSEMIDE 10 MG/ML 4 ML VIAL IV STA (18:09)
[2022-09-11 20:14] LABS: Glucose,Whole Blood 179 mg/dL (70-110)
[2022-09-11] MEDS: LATANOPROST 0.005% OPHTH DROPS 2.5 ML BTL BOTH EYES SCH (20:58)
[2022-09-11] MEDS: INSULIN DETEMIR (LEVEMIR) 100 UNIT/ML SYR SQ SCH (21:05)
[2022-09-11] MEDS: CYCLOBENZAPRINE 10 MG TAB PO SCH (21:05)
[2022-09-12 06:15] LABS: Glucose,Whole Blood 89 mg/dL (70-110)
[2022-09-12] MEDS: INSULIN ASPART (NovoLOG) 100 UNIT/ML VIAL SQ SCH ×4 (06:16→21:14)
[2022-09-12] MEDS: PANTOPRAZOLE 40 MG TABLET PO SCH (06:59)
[2022-09-12] MEDS: glipiZIDE 5 MG TAB PO SCH ×2 (06:59→17:11)
--- NOTE | 2022-09-12 08:01 | XR ---
EXAMINATION TYPE: XR chest 2V DATE OF EXAM: 09/12/2022 COMPARISON: 09/10/2022 TECHNIQUE: PA and lateral views submitted. HISTORY: Shortness of breath FINDINGS: Postoperative changes with cardiomegaly is seen and there is underlying COPD with bibasilar infiltrat e and small effusion. Mild coarsening of the interstitium. IMPRESSION: 1. Persistent interstitial pattern with more confluent density in the right middle and lower lobe. Di fferential diagnosis would include CHF with asymmetric pulmonary edema versus underlying pneumonia.
[2022-09-12 08:30] LABS: Basophils # (A) 0.1 k/uL (0-0.2); Basophils % (A) 1 %; Eosinophils # (A) 0.2 k/uL (0-0.7); Eosinophils % (A) 3 %; HCT 39.7 % (39.0-53.0); HGB 12.8 gm/dL (13.0-17.5); Hypochromasia Slight; Lymphocytes # (A) 1.2 k/uL (1.0-4.8); Lymphocytes % (A) 19 %; MCH 28.7 pg (25.0-35.0); MCHC 32.2 g/dL (31.0-37.0); Mean Platelet Volume 9.3; Monocytes # (A) 0.5 k/uL (0-1.0); Monocytes % (A) 8 %; Neutrophils # (A) 4.3 k/uL (1.3-7.7); Neutrophils % (A) 66 %; Platelet Count 195 k/uL (150-450); RBC 4.46 m/uL (4.30-5.90); RDW 14.3 % (11.5-15.5); WBC 6.5 k/uL (3.8-10.6)
[2022-09-12 08:46] LABS: Albumin 3.6 g/dL (3.5-5.0); Calcium 8.8 mg/dL (8.4-10.2); Potassium 4.1 mmol/L (3.5-5.1); Total Bilirubin 0.7 mg/dL (0.2-1.3)
[2022-09-12] MEDS ORDERED: FUROSEMIDE 20 MG TAB PO SCH (09:00)
[2022-09-12] MEDS: FUROSEMIDE 10 MG/ML 10 ML VIAL IV SCH ×2 (09:19→21:13)
[2022-09-12] MEDS: FENOFIBRATE 160 MG TAB PO SCH (09:20)
[2022-09-12] MEDS: MAGNESIUM OXIDE 400 MG TAB PO SCH ×2 (09:20→21:14)
[2022-09-12] MEDS: DILTIAZEM ORAL 30 MG TAB PO SCH ×3 (09:20→22:34)
[2022-09-12] MEDS: POTASSIUM CHLORIDE ER 10 MEQ TAB.ER.PRT PO SCH (09:20)
[2022-09-12] MEDS: PRAVASTATIN SODIUM 20 MG TAB PO SCH (09:20)
[2022-09-12] MEDS: METOPROLOL SUCCINATE (ER) 25 MG TAB.ER.24H PO SCH ×2 (09:20→21:13)
[2022-09-12] MEDS: HYDROcodone/APAP 10-325MG 1 EACH TAB PO SCH ×3 (09:20→22:34)
[2022-09-12] MEDS: APIXABAN 5 MG TAB PO SCH ×2 (09:20→21:14)
[2022-09-12] MEDS: AMOXIC-POT CLAV 500-125 MG 1 EACH TAB PO SCH (09:26)
--- NOTE | 2022-09-12 10:27 | P.PN ---
Subjective Patient is a 71-year-old male with history of chronic kidney disease NKF stage IV with baseline creatinine around 2-3 range over the last year. He is admitted to the hospital with shortness of breath and edema. Currently being treated for CHF exacerbation and volume overload. This morning patient is extremely short of breath with minimal exertion. Has been on BiPAP Good urine output, 1.7 L for 24 hours. Objective - Vital Signs Vital signs: Vital Signs Temp 97.6 F 09/12/22 08:00 Pulse 63 09/12/22 08:00 Resp 26 H 09/12/22 08:00 BP 126/73 09/12/22 08:00 Pulse Ox 93 L 09/12/22 09:23 FiO2 30 09/11/22 23:11 Intake & Output 09/11/22 09/12/22 09/12/22 18:59 06:59 18:59 Intake Total 476 338 Output Total 1550 1590 350 Balance -1074 -1590 -12 Intake: Oral 476 118 Tube Feeding 220 Output: Urine 450 990 200 Stool 1100 600 150 Other: Voiding Method Urinal Urinal Urinal - Exam Patient is awake, comfortable, not in any acute distress mildly short of breath Examination of the heart S1 and S2 Examination lungs bilateral breath sounds are heard Abdomen is soft nontender Examination lower extremity shows edema 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 Acute kidney injury mostly prerenal secondary to cardiorenal syndrome. Cr eatinine staying at 2.6-2.8 mg/dL. Decreased to 2.1 2. Chronic kidney disease stage IV secondary to nephrosclerosis with baseline creatinine in the range of 2-3 over the last year. 3. Volume overload. 4. Acute on chronic diastolic CHF with moderate to severe tricuspid regurgitation, moderate mitral regurgitation and severe pulmonary hypertension. 5. Diabetes mellitus. 6. History of A. fib. Plan: Switch back to IV diuretics Repeat labs in a.m. Monitor electrolytes Continue decreased dose of Cardizem
[2022-09-12 11:50] LABS: Glucose,Whole Blood 136 mg/dL (70-110)
--- NOTE | 2022-09-12 12:03 | P.PN ---
Subjective Progress Note Date: 09/12/22 HISTORY OF PRESENT ILLNESS: Patient is pleasant 71-year-old male with history of persistent atrial fibrillation status post previous DILLAN and cardioversion, prior TIA, diabetes mellitus type 2, hyperlipidemia, hypertension, chronic kidney disease, obstructive sleep apnea, neuropathy congestive heart failure who presents secondary to increased shortness breath. He states the pharmacy would not fill his Lasix and therefore had been cutting the Lasix down to 1 a day and then ever y other day over the last week. He has noticed some increase in lower extremity edema. He has been feeling increasing shortness of breath and therefore eventually was at doctor's appointment and feeling more short of breath and EMS was called. Chest x-ray 09/04 showed congestive heart failure with possible underlying pneumonia. He denies any fevers or chills or cough. He shows sinus rhythm with prolonged WA interval with right bundle branch block with nonspecific ST-T wave abnormalities. Creatinine 2.29 which appears as baseline with troponin 0.07 and proBNP 3300. Troponins have been chronically elevated in the past. He denies any chest pain or pressure. Previous echo 02/14 shows EF 55-60%, moderate LVH, mild aortic stenosis with prior bioprosthetic aortic valve, severe pulmonary hypertension RVSP 76, moderate to severe tricuspid regurgitation, moderate mitral regurgitation. 09/06 Patient seen and examined. He admits to good urine output with the Lasix 40 mg IV every 8 hours. Hemoglobin 12.6, BUN 47, creatinine 2.8. 09/07 Patient seen and examined. Patient denies any chest pain or pressure. States he is feeling mildly improved overall. Still having some shortness breath and some lower extremity edema. Admits to good urine output with the Lasix 40 mg IV. Cr mildly improved to 2.6 09/08 Patient seen and examined. Patient states he is feeling somewhat better day by day. Still somewhat wheezing on exam. Creatinine 2.7 which has been close to his baseline anywhere from 2.2 up to 3.0. Denies any chest pain or pressure. States he is still having good urine output with Lasix 40mg IV Q8 09/09/2022 Patient examined this morning at the bedside. Patient continues to report slow improvement in his breathing. He remains on Lasix 40 mg every 8 hours. Fluid balance over the last 24 hours is -1970 mL. Vital signs are stable. Creatinine 2.37. 09/10/2022 Patient examined this morning at the bedside. Patient denies chest pain or pressure. He denies shortness of breath. He remains on IV Lasix 40 mg every 12 hours. Vital signs are stable. 09/12/2022 Patient examined this morning at the bedside. Patient is currently wearing a BiPAP. He reports shortness of breath. He remains on oral Lasix. He denies chest pain or pressure. Echocardiogram reveals ejection fraction 50-55%, inferior basal hypokinesis, moderate mitral stenosis, moderate to severe mitral regurgitation, bioprosthetic aortic valve with severe calcification and severe aortic stenosis and mild aortic regurgitation. PHYSICAL EXAM: VITAL SIGNS: Reviewed. GENERAL: Well-developed in no acute distress. NECK: Supple. No JVD or thyromegaly LUNGS: Respirations even and unlabored. Lungs diminished bilaterally. HEART: Regular rate and rhythm. S1 and S2 heard. EXTREMITIES: Normal range of motion. No clubbing or cyanosis. Peripheral pulses intact. 1-2+ bilateral lower extremity edema ASSESSMENT: 1. Acute on chronic diastolic heart failure 2. History of prior bioprosthetic valve replacement 3. Moderate mitral regurgitation 4. Hypertension 5. Chronic kidney disease 6. Paroxysmal atrial fibrillation currently sinus rhythm 7. Troponin elevation not indicative of acute coronary syndrome, chronically elevated secondary to chronic kidney disease PLAN: Patient switched back to IV lasix per nephrology Continue additional cardiac medications Further recommendations pending patient course Patient to follow up outpatient with Dr. Bolaños Nurse practitioner note has been reviewed by physician. Signing provider agrees with the documented findings, assessment, and plan of care. Objective - Vital Signs Vital signs: Vital Signs Temp 97.6 F 09/12/22 08:00 Pulse 63 09/12/22 08:00 Resp 26 H 09/12/22 08:00 BP 126/73 09/12/22 08:00 Pulse Ox 93 L 09/12/22 09:23 FiO2 30 09/11/22 23:11 Intake & Output 09/11/22 09/12/22 09/12/22 18:59 06:59 18:59 Intake Total 476 338 Output Total 1550 1590 350 Balance -1074 -1590 -12 Intake: Oral 476 118 Tube Feeding 220 Output: Urine 450 990 200 Stool 1100 600 150 Other: Voiding Method Urinal Urinal Urinal - Labs CBC & Chem 7: 09/12/22 07:11 09/12/22 07:11 Labs: Abnormal Lab Results - Last 24 Hours (Table) 09/11/22 09/11/22 09/12/22 Range/Units 16:42 20:07 07:11 Hgb (13.0-17.5) gm/dL BUN 58 H (9-20) mg/dL Creatinine 2.43 H (0.66-1.25) mg/dL POC Glucose (mg/dL) 187 H 179 H (70-110) mg/dL Total Protein 6.0 L (6.3-8.2) g/dL 09/12/22 09/12/22 Range/Units 07:11 11:49 Hgb 12.8 L (13.0-17.5) gm/dL BUN (9-20) mg/dL Creatinine (0.66-1.25) mg/dL POC Glucose (mg/dL) 136 H (70-110) mg/dL Total Protein (6.3-8.2) g/dL
--- NOTE | 2022-09-12 12:03 | P.PN ---
Subjective Progress Note Date: 09/12/22 Principal diagnosis: This is a 71-year-old white male with history of chronic atrial fibrillation, previous cardioversion, history of chronic kidney disease, obstructive sleep apnea, patient is normally maintained on Lasix at 40 mg by mouth twice a day. However the patient noted recently that he was getting short on Lasix, and his early refill was denied by his insurance company. Patient started cutting down on the Lasix from twice a day to once a day, and as he was noting that he will remain short before his next prescription refill, patient went down for a week to 40 mg every other day. Over the last 24 hours, patient has been noticing worsening shortness of breath, increased swelling in his lower extremities, and he got to the point that he couldn't breathe. Brought into ER, chest x-ray showed evidence of pulmonary edema and some consolidation in the right lower lobe. Patient had no symptoms to suggest pneumonia, no fever, no chills, no hemoptysis, and he had no chest pain. Patient was given diuretics in the ER, and clinically the patient stated that he is significantly better today compared to how he felt yesterday. Patient was placed on diuretics, and I was asked to see him on consultation. His BNP level was 3300. Previous echocardiogram showed pulmonary hypertension, moderate to severe tricuspid regurgitation, and moderate mitral regurgitation. His EF in the past has been noted to be 55-60%. The patient is seen today 09/06/2022 in follow-up on the selective care unit. He is currently sitting up at the bedside. Awake and alert in no acute distress. He is maintaining O2 saturations in the 90s on 2 L/m per nasal cannula. He has been utilizing CPAP at 13 cm water throughout the night. Normal saline at KVO. Ultrasound of the kidneys revealed no evidence of hydronephrosis or masses. Bladder is not distended. White count 7.3. Hem oglobin 12.6. Sodium 138. Potassium 4.8. Chloride 100. Bicarb 30. BUN 47. Creatinine 2.82. Glucose 185. He is continued on IV diuretics Lasix 40 mg every 8 hours. Antibiotics in the form of ceftriaxone and azithromycin. Anticoagulated with Eliquis. The patient is seen today 09/07/2022 in follow-up on the selective care unit. He is currently sitting up in a chair at the bedside. Currently wearing his CPAP at 13 cm of water. He states he is feeling better. Otherwise he is maintaining good O2 saturations in the 90s on 2 L/m per nasal cannula. He has less crackles posterior. He remains in a negative balance of 3 L. Follow-up chest x-ray shows continued cardiomegaly and improving pulmonary venous congestion. There is persistent right perihilar and right lower lobe infiltrate. Patchy density in the left medial lung bases well. White count 8.0. He will then 12.9. Sodium 140. Potassium 4.2. BUN 50. Creatinine 2.65. He is continued on Augmentin. Continued on IV Lasix. The patient is seen today 09/09/2022 in follow-up on the selective care unit. He is currently wearing his CPAP at 13 cm of water. Utilizing it throughout the night. Otherwise maintaining good O2 saturations in the 90s on 2 L. He sitting up in a chair. Sodium 141. Potassium 3.8. BUN 51. Creatinine 2.37. He is continued on antibiotics in the form of Augmentin. Remains on IV diuretics. Anticoagulated with Eliquis. The patient is seen today 09/12/2022 in follow-up on the selective care unit. He is sitting up at the bedside. Awake and alert in no acute distress. Maintaining O2 saturations in the low 90s on 4 L/m per nasal cannula. Afebrile. Hemodynamically stable. CPAP at 13 cm water at night and during the day while napping. White count 6.5. Hemoglobin 12.5. Sodium 143. Potassium 4.1. Bicarb 28. BUN 58. Creatinine 2.43. Glucose 136. He is continued on Augmentin. Anticoagulated with Eliquis. Remains on IV diuretics. Remains in a negative 4 liter balance. Nephrology is on the case. Objective - Vital Signs Vital signs: Vital Signs Temp 97.6 F 09/12/22 08:00 Pulse 63 09/12/22 08:00 Resp 26 H 09/12/22 08:00 BP 126/73 09/12/22 08:00 Pulse Ox 93 L 09/12/22 09:23 FiO2 30 09/11/22 23:11 Intake & Output 09/11/22 09/12/22 09/12/22 18:59 06:59 18:59 Intake Total 476 338 Output Total 1550 1590 350 Balance -1074 -1590 -12 Intake: Oral 476 118 Tube Feeding 220 Output: Urine 450 990 200 Stool 1100 600 150 Other: Voiding Method Urinal Urinal Urinal - Exam GENERAL EXAM: Alert, obese 71-year-old male, on 4 L nasal cannula, utilizing CPAP at 13 cm water, comfortable in no apparent distress. HEAD: Normocephalic. EYES: Normal reaction of pupils, equal size. NOSE: Clear with pink turbinates. THROAT: No erythema or exudates. NECK: No masses, no JVD. CHEST: No chest wall deformity. LUNGS: Equal air entry with fine crackles at the bases with few scattered rhonchi.. CVS: S1 and S2 normal with no audible murmur, regular rhythm. ABDOMEN: Obese. Ileostomy in place. No hepatosplenomegaly, normal bowel sounds, no guarding or rigidity. SPINE: No scoliosis or deformity SKIN: No rashes CENTRAL NERVOUS SYSTEM: No focal deficits, tone is normal in all 4 extremities. EXTREMITIES: There is 1+ peripheral edema. No clubbing, no cyanosis. Peripheral pulses are intact. - Labs CBC & Chem 7: 09/12/22 07:11 09/12/22 07:11 Labs: Abnormal Lab Results - Last 24 Hours (Table) 09/11/22 09/11/22 09/12/22 Range/Units 16:42 20:07 07:11 Hgb (13.0-17.5) gm/dL BUN 58 H (9-20) mg/dL Creatinine 2.43 H (0.66-1.25) mg/dL POC Glucose (mg/dL) 187 H 179 H (70-110) mg/dL Total Protein 6.0 L (6.3-8.2) g/dL 09/12/22 09/12/22 Range/Units 07:11 11:49 Hgb 12.8 L (13.0-17.5) gm/dL BUN (9-20) mg/dL Creatinine (0.66-1.25) mg/dL POC Glucose (mg/dL) 136 H (70-110) mg/dL Total Protein (6.3-8.2) g/dL Assessment and Plan Assessment: Acute hypoxemic respiratory failure secondary to chronic diastolic congestive heart failure, mostly because of noncompliance with the standard Lasix dose cannot rule out underlying immunity acquired pneumonia. Pro-calcitonin 0.24. Currently on Augmentin Chronic right lower lobe consolidation, going back to 2020, based on previous x- rays of the chest and previous CT of the chest. Patient is following up with Dr. Connelly may eventually have to be considered for outpatient bronchoscopy Moderate mitral valve regurgitation Chronic kidney disease Paroxysmal atrial fibrillation Type 2 diabetes Dyslipidemia Obstructive sleep apnea syndrome, maintained on CPAP at 13 cm of water Hypothyroidism History of bowel resection and ileostomy Plan: The patient was seen and evaluated Labs and medications reviewed Continue IV diuretics per nephrology Continue Augmentin Titrate the FiO2 as tolerated Increase his activity as tolerated We will continue to follow I have personally seen and examined the patient, performed the documentation and the assessment and plan as written. Number of minutes spent on the visit: 10.
[2022-09-12 16:29] LABS: Glucose,Whole Blood 223 mg/dL (70-110)
[2022-09-12] MEDS ORDERED: ACETAMINOPHEN TAB 500 MG TAB PO PRN (17:25)
--- NOTE | 2022-09-12 17:29 | P.PN ---
Subjective Progress Note Date: 09/12/22 Faisal Andrade, is a 71 year old male who presented to [facility] emergency room with a chief complaint of severe shortness of breath, patient stated that he started having shortness of breath and cough 3-4 days prior to presentation and his symptom has been worsening. Patient was evaluated in the emergency room he was in acute respiratory distress he was started on BiPAP. He was evaluated in the emergency room vital examination on presentation revealed a temperature of 97.9 pulse 90 respiration 54 blood pressure 157/97 pulse ox 92% on BiPAP Laboratory data revealed a white blood count of 9.9 hemoglobin 13.7 platelet count 200 sodium 140 potassium 4.6 BUN 41 creatinine 2.29 troponin level 0.074 Testing in the emergency room revealed chest x-ray done in the emergency room revealed evidence of pulmonary venous congestion and the right lower lobe infiltrate as well as bilateral small pleural effusions, EKG revealed sinus rhythm with first-degree AV block and right bundle branch block Patient was admitted to medical floor for further evaluation and treatment, he was started on IV Lasix and IV antibiotics pulmonary consultation and cardiology consultation were requested On 09/06/2022 patient reports some improvement with shortness of breath. Patient remains on IV antibiotics Rocephin and azithromycin. Patient also maintained on IV Lasix. Cardiology and pulmonary services are following. Creatinine 2.82 and bun 47 this does appear chronic for patient will continue to monitor while patient is on IV Lasix. Patient denies chest pain. Patient does report some shortness of breast oh. Patient denies nausea vomiting or diarrhea. Patient denies any urinary burning or frequency On 09/07/2022 patient was seen and examined on the telemetry floor he is alert and oriented 3 in no apparent distress he is still complaining of shortness of breath and cough otherwise he denies any complaints there is no fever or chills no headache or dizziness no chest pain no nausea or vomiting no abdominal pain no diarrhea no blood in the stools no burning with urination no frequency or urgency and no hematuria. On 09/08/2022 patient was seen and examined on the medical floor he is alert and oriented 3 in no apparent distress he is still complaining of cough and shortness of breath with activity otherwise he denies any complaints there is no fever or chills no headache or dizziness no chest pain no nausea or vomiting no abdominal pain no diarrhea no blood in the stools no burning with urination no frequency or urgency and no hematuria. On 09/09/2022 patient was seen and examined on the medical floor, he is alert and oriented 3 in no apparent distress he is still complaining of severe shortness of breath with any activity otherwise he denies any complaints there is no fever or chills no headache or dizziness no chest pain, he has occasional cough no nausea or vomiting no abdominal pain no diarrhea no blood in the stools and no urinary symptoms, he is still maintained on IV Lasix, cardiology are following On 09/10/2022 patient was seen and examined on the medical floor, he is alert and oriented 3 in no he is still complaining of severe shortness of breath with any activity otherwise he denies any complaints there is no fever or chills no headache or dizziness no chest pain, he has occasional cough no nausea or vomiting no abdominal pain no diarrhea no blood in the stools and no urinary symptoms, he is still maintained on IV Lasix, cardiology and nephrology are following On 09/11/2022 patient was seen and examined on the telemetry floor he is alert and oriented 3 in no apparent distress IV Lasix was discontinued yesterday and patient was started on oral Lasix today he is complaining of worsening shortness of breath today otherwise he denies any complaints there is no fever or chills no headache or dizziness there is occasional cough no chest pain no nausea or vomiting no abdominal pain no diarrhea and no urinary symptoms. Plan is to continue with oral Lasix recheck chest x-ray and labs in a.m. possible discharge to home tomorrow if stable On 09/12/2022 patient was seen and examined on the telemetry floor he is alert and oriented 3 in no apparent distress this morning he was complaining of severe shortness of breath he was evaluated by nephrology and he was restarted on IV Lasix chest x-ray reveals worsening congestion and possible pneumonia at this time will discontinue Augmentin and start IV Rocephin and IV Zithromax continue with IV Lasix continue to follow closely Objective - Vital Signs Vital signs: Vital Signs Temp 96.7 F L 09/12/22 15:43 Pulse 71 09/12/22 15:43 Resp 28 H 09/12/22 15:43 BP 131/85 09/12/22 15:43 Pulse Ox 95 11/17/22 12:00 FiO2 30 09/12/22 12:00 Intake & Output 09/11/22 09/12/22 09/12/22 18:59 06:59 18:59 Intake Total 476 456 Output Total 1550 1590 350 Balance -1074 -1590 106 Intake: Oral 476 236 Tube Feeding 220 Output: Urine 450 990 200 Stool 1100 600 150 Other: Voiding Method Urinal Urinal Urinal - Exam In general patient is alert and oriented x 3 in no distress HEENT head normocephalic and atraumatic Neck is supple no JVD no goiter no lymphadenopathy no carotid bruit Chest examination revealed coarse crackles in both lung zhang no wheezing Cardiac exam reveals regular heart sounds S1 and S2 no gallops no murmurs Abdomen is soft nontender no organomegaly with normal bowel sounds Extremity exam reveals no edema no cyanosis or clubbing Neurological examination reveals no gross focal deficits - Labs CBC & Chem 7: 09/12/22 07:11 09/12/22 07:11 Labs: Abnormal Lab Results - Last 24 Hours (Table) 09/11/22 09/11/22 09/12/22 Range/Units 16:42 20:07 07:11 Hgb (13.0-17.5) gm/dL BUN 58 H (9-20) mg/dL Creatinine 2.43 H (0.66-1.25) mg/dL POC Glucose (mg/dL) 187 H 179 H (70-110) mg/dL Total Protein 6.0 L (6.3-8.2) g/dL 09/12/22 09/12/22 Range/Units 07:11 11:49 Hgb 12.8 L (13.0-17.5) gm/dL BUN (9-20) mg/dL Creatinine (0.66-1.25) mg/dL POC Glucose (mg/dL) 136 H (70-110) mg/dL Total Protein (6.3-8.2) g/dL Assessment and Plan Plan: Severe shortness of breath, with acute on chronic hypoxic respiratory failure Acute exacerbation of congestive heart failure with chest x-ray revealing evidence of pulmonary edema Underlying history of valvular heart disease, with history of aortic valve replacement in January 2015 Acute right lower lobe infiltrate suggestive of pneumonia Mild elevation in troponin level on presentation Underlying history of colon cancer status post surgery with ileostomy placement Underlying history of coronary artery disease with history of myocardial infarction in 2013 Underlying history of chronic kidney disease stage III Underlying history of insulin-dependent diabetes mellitus Underlying history of atrial fibrillation Underlying history of hypertension Underlying history of hyperlipidemia Underlying history of gout At this time patient is admitted to telemetry floor He was started on IV antibiotics and IV Lasix Home medications reviewed and reordered Cardiology consultation and pulmonary consultation requested For DVT prophylaxis patient is maintained on Eliquis Will follow closely during this admission
[2022-09-12 20:12] LABS: Glucose,Whole Blood 153 mg/dL (70-110)
[2022-09-12] MEDS: LATANOPROST 0.005% OPHTH DROPS 2.5 ML BTL BOTH EYES SCH (21:04)
[2022-09-12] MEDS: CYCLOBENZAPRINE 10 MG TAB PO SCH (21:13)
[2022-09-12] MEDS: AZITHROMYCIN 500 MG in SODIUM CHLORIDE 0.9% 250 ML IVPB SCH (21:14)
[2022-09-12 22:34] LABS: Glucose,Whole Blood 155 mg/dL (70-110)
[2022-09-12] MEDS: INSULIN DETEMIR (LEVEMIR) 100 UNIT/ML SYR SQ SCH (22:35)
[2022-09-13 05:59] LABS: Glucose,Whole Blood 44 mg/dL (70-110)
[2022-09-13] MEDS: INSULIN ASPART (NovoLOG) 100 UNIT/ML VIAL SQ SCH ×5 (06:12→21:04)
[2022-09-13 06:17] LABS: Glucose,Whole Blood 44 mg/dL (70-110)
[2022-09-13 06:34] LABS: Glucose,Whole Blood 60 mg/dL (70-110)
[2022-09-13] MEDS: glipiZIDE 5 MG TAB PO SCH (06:38)
[2022-09-13] MEDS: PANTOPRAZOLE 40 MG TABLET PO SCH (06:38)
[2022-09-13] MEDS: DEXTROSE 50% SYRINGE 50 ML IVP PRN (06:39)
[2022-09-13 06:52] LABS: Glucose,Whole Blood 79 mg/dL (70-110)
[2022-09-13 08:45] LABS: Basophils # (A) 0.1 k/uL (0-0.2); Basophils % (A) 1 %; Eosinophils # (A) 0.1 k/uL (0-0.7); Eosinophils % (A) 2 %; HCT 41.3 % (39.0-53.0); HGB 13.3 gm/dL (13.0-17.5); Hypochromasia Moderate; Lymphocytes # (A) 0.9 k/uL (1.0-4.8); Lymphocytes % (A) 11 %; MCH 28.8 pg (25.0-35.0); MCHC 32.1 g/dL (31.0-37.0); MCV 89.5 fL (80.0-100.0); Mean Platelet Volume 8.9; Monocytes # (A) 0.5 k/uL (0-1.0); Monocytes % (A) 6 %; Neutrophils # (A) 6.4 k/uL (1.3-7.7); Neutrophils % (A) 80 %; Platelet Count 205 k/uL (150-450); RBC 4.61 m/uL (4.30-5.90); WBC 8.1 k/uL (3.8-10.6)
[2022-09-13] MEDS: FUROSEMIDE 10 MG/ML 10 ML VIAL IV SCH ×2 (09:42→21:04)
[2022-09-13] MEDS: MAGNESIUM OXIDE 400 MG TAB PO SCH ×2 (09:43→21:04)
[2022-09-13] MEDS: PRAVASTATIN SODIUM 20 MG TAB PO SCH (09:43)
[2022-09-13] MEDS: METOPROLOL SUCCINATE (ER) 25 MG TAB.ER.24H PO SCH ×2 (09:43→21:03)
[2022-09-13] MEDS: POTASSIUM CHLORIDE ER 10 MEQ TAB.ER.PRT PO SCH (09:43)
[2022-09-13] MEDS: APIXABAN 5 MG TAB PO SCH ×2 (09:43→21:04)
[2022-09-13] MEDS: FENOFIBRATE 160 MG TAB PO SCH (09:43)
[2022-09-13] MEDS: HYDROcodone/APAP 10-325MG 1 EACH TAB PO SCH ×3 (09:43→23:45)
[2022-09-13] MEDS: DILTIAZEM ORAL 30 MG TAB PO SCH ×3 (09:43→23:46)
[2022-09-13 09:50] LABS: Total Bilirubin 0.9 mg/dL (0.2-1.3); Total Protein 6.6 g/dL (6.3-8.2)
--- NOTE | 2022-09-13 11:20 | P.PN ---
Subjective Patient is a 71-year-old male with history of chronic kidney disease NKF stage IV with baseline creatinine around 2-3 range over the last year. He is admitted to the hospital with shortness of breath and edema. Currently being treated for CHF exacerbation and volume overload. Patient was quite short of breath yesterday and he was restarted on IV Lasix. This morning he states he is feeling better with improvement in his respiratory status. 24 hour urine output at 1700 ML Objective - Vital Signs Vital signs: Vital Signs Temp 98.0 F 09/13/22 09:41 Pulse 95 09/13/22 09:41 Resp 20 09/13/22 09:41 BP 145/71 09/13/22 09:41 Pulse Ox 94 L 09/13/22 09:41 FiO2 30 09/13/22 08:03 Intake & Output 09/12/22 09/13/22 09/13/22 18:59 06:59 18:59 Intake Total 636 150 Output Total 1550 1575 900 Balance -914 -1575 -750 Weight 107.5 kg Intake: Oral 416 150 Tube Feeding 220 Output: Urine 1400 1275 600 Stool 150 300 300 Other: Voiding Method Urinal Urinal Urinal # Voids 5 # Bowel Movements 1 - Exam Patient is awake, comfortable, not in any acute distress mildly short of breath Examination of the heart S1 and S2 Examination lungs bilateral breath sounds are heard, wheezing bilaterally Abdomen is soft nontender Examination lower extremity shows edema 2+ bilaterally [employer]CH[employer]ICIAN exam grossly intact - Labs CBC & Chem 7: 09/13/22 08:16 09/13/22 08:16 Labs: Abnormal Lab Results - Last 24 Hours (Table) 09/12/22 09/12/22 09/12/22 Range/Units 11:49 16:27 20:08 Lymphocytes # (1.0-4.8) k/uL BUN (9-20) mg/dL Creatinine (0.66-1.25) mg/dL Glucose (74-99) mg/dL POC Glucose (mg/dL) 136 H 223 H 153 H (70-110) mg/dL 09/12/22 09/13/22 09/13/22 Range/Units 22:33 05:58 06:15 Lymphocytes # (1.0-4.8) k/uL BUN (9-20) mg/dL Creatinine (0.66-1.25) mg/dL Glucose (74-99) mg/dL POC Glucose (mg/dL) 155 H 44 L 44 L (70-110) mg/dL 09/13/22 09/13/22 09/13/22 Range/Units 06:33 08:16 08:16 Lymphocytes # 0.9 L (1.0-4.8) k/uL BUN 59 H (9-20) mg/dL Creatinine 2.48 H (0.66-1.25) mg/dL Glucose 250 H (74-99) mg/dL POC Glucose (mg/dL) 60 L (70-110) mg/dL Assessment and Plan Assessment: 1. Acute kidney injury mostly prerenal secondary to cardiorenal syndrome. Creatinine staying at 2.6-2.8 mg/dL. Decreased to 2.1 2. Chronic kidney disease stage IV secondary to nephrosclerosis with baseline creatinine in the range of 2-3 over the last year. 3. Volume overload. 4. Acute on chronic diastolic CHF with moderate to severe tricuspid r egurgitation, moderate mitral regurgitation and severe pulmonary hypertension. 5. Diabetes mellitus. 6. History of A. fib. Plan: Continue increased dose of IV Lasix Add Zaroxolyn and repeat labs in a.m.
--- NOTE | 2022-09-13 11:21 | P.PN ---
Subjective Progress Note Date: 09/13/22 HISTORY OF PRESENT ILLNESS: Patient is pleasant 71-year-old male with history of persistent atrial fibrillation status post previous DILLAN and cardioversion, prior TIA, diabetes mellitus type 2, hyperlipidemia, hypertension, chronic kidney disease, obstructive sleep apnea, neuropathy congestive heart failure who presents secondary to increased shortness breath. He states the pharmacy would not fill his Lasix and therefore had been cutting the Lasix down to 1 a day and then ever y other day over the last week. He has noticed some increase in lower extremity edema. He has been feeling increasing shortness of breath and therefore eventually was at doctor's appointment and feeling more short of breath and EMS was called. Chest x-ray 09/04 showed congestive heart failure with possible underlying pneumonia. He denies any fevers or chills or cough. He shows sinus rhythm with prolonged HI interval with right bundle branch block with nonspecific ST-T wave abnormalities. Creatinine 2.29 which appears as baseline with troponin 0.07 and proBNP 3300. Troponins have been chronically elevated in the past. He denies any chest pain or pressure. Previous echo 02/14 shows EF 55-60%, moderate LVH, mild aortic stenosis with prior bioprosthetic aortic valve, severe pulmonary hypertension RVSP 76, moderate to severe tricuspid regurgitation, moderate mitral regurgitation. 09/06 Patient seen and examined. He admits to good urine output with the Lasix 40 mg IV every 8 hours. Hemoglobin 12.6, BUN 47, creatinine 2.8. 09/07 Patient seen and examined. Patient denies any chest pain or pressure. States he is feeling mildly improved overall. Still having some shortness breath and some lower extremity edema. Admits to good urine output with the Lasix 40 mg IV. Cr mildly improved to 2.6 09/08 Patient seen and examined. Patient states he is feeling somewhat better day by day. Still somewhat wheezing on exam. Creatinine 2.7 which has been close to his baseline anywhere from 2.2 up to 3.0. Denies any chest pain or pressure. States he is still having good urine output with Lasix 40mg IV Q8 09/09/2022 Patient examined this morning at the bedside. Patient continues to report slow improvement in his breathing. He remains on Lasix 40 mg every 8 hours. Fluid balance over the last 24 hours is -1970 mL. Vital signs are stable. Creatinine 2.37. 09/10/2022 Patient examined this morning at the bedside. Patient denies chest pain or pressure. He denies shortness of breath. He remains on IV Lasix 40 mg every 12 hours. Vital signs are stable. 09/12/2022 Patient examined this morning at the bedside. Patient is currently wearing a BiPAP. He reports shortness of breath. He remains on oral Lasix. He denies chest pain or pressure. Echocardiogram reveals ejection fraction 50-55%, inferior basal hypokinesis, moderate mitral stenosis, moderate to severe mitral regurgitation, bioprosthetic aortic valve with severe calcification and severe aortic stenosis and mild aortic regurgitation. 09/13/2022 Patient examined this morning at the bedside. Patient denies chest pain or pressure. Reports SOB but improving. He remains on IV lasix. Creatinine 2.48. PHYSICAL EXAM: VITAL SIGNS: Reviewed. GENERAL: Well-developed in no acute distress. NECK: Supple. No JVD or thyromegaly LUNGS: Respirations even and unlabored. Lungs diminished bilaterally. HEART: Regular rate and rhythm. S1 and S2 heard. EXTREMITIES: Normal range of motion. No clubbing or cyanosis. Peripheral pulses intact. 1-2+ bilateral lower extremity edema ASSESSMENT: 1. Acute on chronic diastolic heart failure 2. History of prior bioprosthetic valve replacement 3. Moderate mitral regurgitation 4. Hypertension 5. Chronic kidney disease 6. Paroxysmal atrial fibrillation currently sinus rhythm 7. Troponin elevation not indicative of acute coronary syndrome, chronically elevated secondary to chronic kidney disease PLAN: Continue IV lasix per nephrology Monitor kidney function Continue additional cardiac medications Further recommendations pending patient course Patient to follow up outpatient with Dr. Bolaños Nurse practitioner note has been reviewed by physician. Signing provider agrees with the documented findings, assessment, and plan of care. Objective - Vital Signs Vital signs: Vital Signs Temp 98.0 F 09/13/22 09:41 Pulse 95 09/13/22 09:41 Resp 20 09/13/22 09:41 BP 145/71 09/13/22 09:41 Pulse Ox 94 L 09/13/22 09:41 FiO2 30 09/13/22 08:03 Intake & Output 09/12/22 09/13/22 09/13/22 18:59 06:59 18:59 Intake Total 636 150 Output Total 1550 1575 900 Balance -914 -1575 -750 Weight 107.5 kg Intake: Oral 416 150 Tube Feeding 220 Output: Urine 1400 1275 600 Stool 150 300 300 Other: Voiding Method Urinal Urinal Urinal # Voids 5 # Bowel Movements 1 - Labs CBC & Chem 7: 09/13/22 08:16 09/13/22 08:16 Labs: Abnormal Lab Results - Last 24 Hours (Table) 09/12/22 09/12/22 09/12/22 Range/Units 11:49 16:27 20:08 Lymphocytes # (1.0-4.8) k/uL BUN (9-20) mg/dL Creatinine (0.66-1.25) mg/dL Glucose (74-99) mg/dL POC Glucose (mg/dL) 136 H 223 H 153 H (70-110) mg/dL 09/12/22 09/13/22 09/13/22 Range/Units 22:33 05:58 06:15 Lymphocytes # (1.0-4.8) k/uL BUN (9-20) mg/dL Creatinine (0.66-1.25) mg/dL Glucose (74-99) mg/dL POC Glucose (mg/dL) 155 H 44 L 44 L (70-110) mg/dL 09/13/22 09/13/22 09/13/22 Range/Units 06:33 08:16 08:16 Lymphocytes # 0.9 L (1.0-4.8) k/uL BUN 59 H (9-20) mg/dL Creatinine 2.48 H (0.66-1.25) mg/dL Glucose 250 H (74-99) mg/dL POC Glucose (mg/dL) 60 L (70-110) mg/dL
[2022-09-13 11:48] LABS: Glucose,Whole Blood 189 mg/dL (70-110)
[2022-09-13] MEDS: metOLazone 5 MG TAB PO SCH (11:55)
--- NOTE | 2022-09-13 12:41 | P.PN ---
Subjective Progress Note Date: 09/13/22 Principal diagnosis: This is a 71-year-old white male with history of chronic atrial fibrillation, previous cardioversion, history of chronic kidney disease, obstructive sleep apnea, patient is normally maintained on Lasix at 40 mg by mouth twice a day. However the patient noted recently that he was getting short on Lasix, and his early refill was denied by his insurance company. Patient started cutting down on the Lasix from twice a day to once a day, and as he was noting that he will remain short before his next prescription refill, patient went down for a week to 40 mg every other day. Over the last 24 hours, patient has been noticing worsening shortness of breath, increased swelling in his lower extremities, and he got to the point that he couldn't breathe. Brought into ER, chest x-ray showed evidence of pulmonary edema and some consolidation in the right lower lobe. Patient had no symptoms to suggest pneumonia, no fever, no chills, no hemoptysis, and he had no chest pain. Patient was given diuretics in the ER, and clinically the patient stated that he is significantly better today compared to how he felt yesterday. Patient was placed on diuretics, and I was asked to see him on consultation. His BNP level was 3300. Previous echocardiogram showed pulmonary hypertension, moderate to severe tricuspid regurgitation, and moderate mitral regurgitation. His EF in the past has been noted to be 55-60%. The patient is seen today 09/06/2022 in follow-up on the selective care unit. He is currently sitting up at the bedside. Awake and alert in no acute distress. He is maintaining O2 saturations in the 90s on 2 L/m per nasal cannula. He has been utilizing CPAP at 13 cm water throughout the night. Normal saline at KVO. Ultrasound of the kidneys revealed no evidence of hydronephrosis or masses. Bladder is not distended. White count 7.3. Hem oglobin 12.6. Sodium 138. Potassium 4.8. Chloride 100. Bicarb 30. BUN 47. Creatinine 2.82. Glucose 185. He is continued on IV diuretics Lasix 40 mg every 8 hours. Antibiotics in the form of ceftriaxone and azithromycin. Anticoagulated with Eliquis. The patient is seen today 09/07/2022 in follow-up on the selective care unit. He is currently sitting up in a chair at the bedside. Currently wearing his CPAP at 13 cm of water. He states he is feeling better. Otherwise he is maintaining good O2 saturations in the 90s on 2 L/m per nasal cannula. He has less crackles posterior. He remains in a negative balance of 3 L. Follow-up chest x-ray shows continued cardiomegaly and improving pulmonary venous congestion. There is persistent right perihilar and right lower lobe infiltrate. Patchy density in the left medial lung bases well. White count 8.0. He will then 12.9. Sodium 140. Potassium 4.2. BUN 50. Creatinine 2.65. He is continued on Augmentin. Continued on IV Lasix. The patient is seen today 09/09/2022 in follow-up on the selective care unit. He is currently wearing his CPAP at 13 cm of water. Utilizing it throughout the night. Otherwise maintaining good O2 saturations in the 90s on 2 L. He sitting up in a chair. Sodium 141. Potassium 3.8. BUN 51. Creatinine 2.37. He is continued on antibiotics in the form of Augmentin. Remains on IV diuretics. Anticoagulated with Eliquis. The patient is seen today 09/12/2022 in follow-up on the selective care unit. He is sitting up at the bedside. Awake and alert in no acute distress. Maintaining O2 saturations in the low 90s on 4 L/m per nasal cannula. Afebrile. Hemodynamically stable. CPAP at 13 cm water at night and during the day while napping. White count 6.5. Hemoglobin 12.5. Sodium 143. Potassium 4.1. Bicarb 28. BUN 58. Creatinine 2.43. Glucose 136. He is continued on Augmentin. Anticoagulated with Eliquis. Remains on IV diuretics. Remains in a negative 4 liter balance. Nephrology is on the case. The patient is seen today 09/13/2022 in follow-up on the selective care unit. He is currently sitting up at the bedside. Awake and alert in no acute distress. Maintaining O2 saturations in the mid 90s on 4 L/m per nasal cannula. He's been afebrile. Hemodynamically stable. Continues to wear his CPAP at night. Chest x-ray continues to show persistent interstitial pattern with more confluent density in the right middle and lower lobes. Some of which is chronic in nature. White count 8.1. Hemoglobin 13.3. Sodium 141. Potassium 4.0. BUN 59. Creatinine 2.58. Glucose 250. He remains on ceftriaxone and azithromycin. Pro-calcitonin pending. Anticoagulated with Eliquis. Continued on IV diuretics. Currently in a -2.6 L balance. Objective - Vital Signs Vital signs: Vital Signs Temp 97.8 F 09/13/22 11:57 Pulse 75 09/13/22 11:57 Resp 18 09/13/22 11:57 BP 135/82 09/13/22 11:57 Pulse Ox 96 09/13/22 11:57 FiO2 30 09/13/22 08:03 Intake & Output 09/12/22 09/13/22 09/13/22 18:59 06:59 18:59 Intake Total 636 150 Output Total 1550 1575 900 Balance -914 -1575 -750 Weight 107.5 kg Intake: Oral 416 150 Tube Feeding 220 Output: Urine 1400 1275 600 Stool 150 300 300 Other: Voiding Method Urinal Urinal Urinal # Voids 5 # Bowel Movements 1 - Exam GENERAL EXAM: Alert, pleasant, 71-year-old male, on 4 L nasal cannula, utilizing CPAP at 13 cm water, comfortable in no apparent distress. HEAD: Normocephalic. EYES: Normal reaction of pupils, equal size. NOSE: Clear with pink turbinates. THROAT: No erythema or exudates. NECK: No masses, no JVD. CHEST: No chest wall deformity. LUNGS: Equal air entry with fine crackles at the bases with few scattered rhonchi.. CVS: S1 and S2 normal with no audible murmur, regular rhythm. ABDOMEN: Obese. Ileostomy in place. No hepatosplenomegaly, normal bowel sounds, no guarding or rigidity. SPINE: No scoliosis or deformity SKIN: No rashes CENTRAL NERVOUS SYSTEM: No focal deficits, tone is normal in all 4 extremities. EXTREMITIES: There is 1+ peripheral edema. No clubbing, no cyanosis. Peripheral pulses are intact. - Labs CBC & Chem 7: 09/13/22 08:16 09/13/22 08:16 Labs: Abnormal Lab Results - Last 24 Hours (Table) 09/12/22 09/12/22 09/12/22 Range/Units 16:27 20:08 22:33 Lymphocytes # (1.0-4.8) k/uL BUN (9-20) mg/dL Creatinine (0.66-1.25) mg/dL Glucose (74-99) mg/dL POC Glucose (mg/dL) 223 H 153 H 155 H (70-110) mg/dL 09/13/22 09/13/22 09/13/22 Range/Units 05:58 06:15 06:33 Lymphocytes # (1.0-4.8) k/uL BUN (9-20) mg/dL Creatinine (0.66-1.25) mg/dL Glucose (74-99) mg/dL POC Glucose (mg/dL) 44 L 44 L 60 L (70-110) mg/dL 09/13/22 09/13/22 09/13/22 Range/Units 08:16 08:16 11:46 Lymphocytes # 0.9 L (1.0-4.8) k/uL BUN 59 H (9-20) mg/dL Creatinine 2.48 H (0.66-1.25) mg/dL Glucose 250 H (74-99) mg/dL POC Glucose (mg/dL) 189 H (70-110) mg/dL Assessment and Plan Assessment: Acute hypoxemic respiratory failure secondary to chronic diastolic congestive heart failure, mostly because of noncompliance with the standard Lasix dose cannot rule out underlying immunity acquired pneumonia. Pro-calcitonin 0.24. Currently on ceftriaxone and azithromycin. Follow-up pro-calcitonin pending. Chronic right lower lobe consolidation, going back to 2020, based on previous x-rays of the chest and previous CT of the chest. Patient is following up with Dr. Connelly may eventually have to be considered for outpatient bronchoscopy Moderate mitral valve regurgitation Acute on chronic kidney disease Paroxysmal atrial fibrillation Type 2 diabetes Dyslipidemia Obstructive sleep apnea syndrome, maintained on CPAP at 13 cm of water Hypothyroidism History of bowel resection and ileostomy Plan: The patient was seen and evaluated Chest x-ray, labs and medications reviewed Continue IV diuretics per nephrology Pro-calcitonin pending Titrate the FiO2 as tolerated Increase his activity as tolerated We will continue to follow I have personally seen and examined the patient, performed the documentation and the assessment and plan as written. Number of minutes spent on the visit: 10.
[2022-09-13] MEDS: AZITHROMYCIN 500 MG in SODIUM CHLORIDE 0.9% 250 ML IVPB SCH (12:44)
--- NOTE | 2022-09-13 13:21 | P.PN ---
Subjective Start covering Dr. Rayo 09/13/2022 From the records Faisal Andrade, is a 71 year old male who presented to [facility] emergency room with a chief complaint of severe shortness of breath, patient stated that he started having shortness of breath and cough 3-4 days prior to presentation and his symptom has been worsening. Patient was evaluated in the emergency room he was in acute respiratory distress he was started on BiPAP. He was evaluated in the emergency room vital examination on presentation revealed a temperature of 97.9 pulse 90 respiration 54 blood pressure 157/97 pulse ox 92% on BiPAP Laboratory data revealed a white blood count of 9.9 hemoglobin 13.7 platelet count 200 sodium 140 potassium 4.6 BUN 41 creatinine 2.29 troponin level 0.074 Testing in the emergency room revealed chest x-ray done in the emergency room revealed evidence of pulmonary venous congestion and the right lower lobe infiltrate as well as bilateral small pleural effusions, EKG revealed sinus rhythm with first-degree AV block and right bundle branch block Patient was admitted to medical floor for further evaluation and treatment, he was started on IV Lasix and IV antibiotics pulmonary consultation and cardiology consultation were requested On 09/06/2022 patient reports some improvement with shortness of breath. Patient remains on IV antibiotics Rocephin and azithromycin. Patient also maintained on IV Lasix. Cardiology and pulmonary services are following. Creatinine 2.82 and bun 47 this does appear chronic for patient will continue to monitor while patient is on IV Lasix. Patient denies chest pain. Patient does report some shortness of breast oh. Patient denies nausea vomiting or diarrhea. Patient denies any urinary burning or frequency On 09/07/2022 patient was seen and examined on the telemetry floor he is alert and oriented 3 in no apparent distress he is still complaining of shortness of breath and cough otherwise he denies any complaints there is no fever or chills no headache or dizziness no chest pain no nausea or vomiting no abdominal pain no diarrhea no blood in the stools no burning with urination no frequency or urgency and no hematuria. On 09/08/2022 patient was seen and examined on the medical floor he is alert and oriented 3 in no apparent distress he is still complaining of cough and joey rtness of breath with activity otherwise he denies any complaints there is no fever or chills no headache or dizziness no chest pain no nausea or vomiting no abdominal pain no diarrhea no blood in the stools no burning with urination no frequency or urgency and no hematuria. On 09/09/2022 patient was seen and examined on the medical floor, he is alert and oriented 3 in no apparent distress he is still complaining of severe shortness of breath with any activity otherwise he denies any complaints there is no fever or chills no headache or dizziness no chest pain, he has occasional cough no nausea or vomiting no abdominal pain no diarrhea no blood in the stools and no urinary symptoms, he is still maintained on IV Lasix, cardiology are following On 09/10/2022 patient was seen and examined on the medical floor, he is alert and oriented 3 in no he is still complaining of severe shortness of breath with any activity otherwise he denies any complaints there is no fever or chills no headache or dizziness no chest pain, he has occasional cough no nausea or vomiting no abdominal pain no diarrhea no blood in the stools and no urinary symptoms, he is still maintained on IV Lasix, cardiology and nephrology are following On 09/11/2022 patient was seen and examined on the telemetry floor he is alert and oriented 3 in no apparent distress IV Lasix was discontinued yesterday and patient was started on oral Lasix today he is complaining of worsening shortness of breath today otherwise he denies any complaints there is no fever or chills no headache or dizziness there is occasional cough no chest pain no nausea or vomiting no abdominal pain no diarrhea and no urinary symptoms. Plan is to continue with oral Lasix recheck chest x-ray and labs in a.m. possible discharge to home tomorrow if stable On 09/12/2022 patient was seen and examined on the telemetry floor he is alert and oriented 3 in no apparent distress this morning he was complaining of severe shortness of breath he was evaluated by nephrology and he was restarted on IV Lasix chest x-ray reveals worsening congestion and possible pneumonia at this time will discontinue Augmentin and start IV Rocephin and IV Zithromax continue with IV Lasix continue to follow closely 09/13/2022 This is a pleasant 71 years old male with multiple problems admitted for respiratory distress suspected secondary to acute diastolic CHF and hypoxic respiratory failure 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 Currently he is on IV Lasix 60 mg twice daily. This morning he is fully awake and oriented and is still on CPAP with pressure of 13 and FiO2 of 30%.. Yesterday he got more severe short of breath so he was placed back on IV Lasix and change antibiotics to Augmentin and to ceftriaxone and Zithromax He denies chest pain or significant coughing. Is taken up his appetite. He has left lower abdomen colostomy back with likely brown stool, still looks soft but not watery History was 44 this morning. He is on Levemir 18 units at bedtime and the glipizide 5 mg twice a day. Discontinue glipizide, lower Levemir to 15 units and add NovoLog insulin 3 units with meals. Patient tolerating diet well. He is a diabetic diet currently. Also we'll check a pro-calcitonin Objective - Vital Signs Vital signs: Vital Signs Temp 97.7 F 09/13/22 00:00 Pulse 69 09/13/22 04:00 Resp 26 H 09/13/22 04:00 BP 122/79 09/13/22 04:00 Pulse Ox 92 L 09/13/22 04:00 FiO2 30 09/13/22 08:03 Intake & Output 09/12/22 09/13/22 09/13/22 18:59 06:59 18:59 Intake Total 636 Output Total 1550 1575 300 Balance -914 -1575 -300 Weight 107.5 kg Intake: Oral 416 Tube Feeding 220 Output: Urine 1400 1275 300 Stool 150 300 Other: Voiding Method Urinal Urinal # Voids 5 # Bowel Movements 1 - Exam GENERAL: The patient is alert and oriented x3, not in any acute distress. Morbidly obese HEENT: Pupils are round and equally reacting to light. EOMI. No scleral icterus. No conjunctival pallor. Normocephalic, atraumatic. No pharyngeal erythema. No thyromegaly. CARDIOVASCULAR: S1 and S2 present. No murmurs, rubs, or gallops. -PULMONARY: Chest is clear to auscultation, no wheezing or crackles. Limited air entry, on CPAP -ABDOMEN: Soft, nontender, nondistended, normoactive bowel sounds. No palpable organomegaly. Left colostomy back in place with black to brown stool MUSCULOSKELETAL: No joint swelling or deformity. EXTREMITIES: No cyanosis, clubbing, or pedal edema. NEUROLOGICAL: Gross neurological examination did not reveal any focal deficits. SKIN: No rashes. no petechiae. - Labs CBC & Chem 7: 09/13/22 08:16 09/12/22 07:11 Labs: Abnormal Lab Results - Last 24 Hours (Table) 09/12/22 09/12/22 09/12/22 Range/Units 11:49 16:27 20:08 Lymphocytes # (1.0-4.8) k/uL POC Glucose (mg/dL) 136 H 223 H 153 H (70-110) mg/dL 09/12/22 09/13/22 09/13/22 Range/Units 22:33 05:58 06:15 Lymphocytes # (1.0-4.8) k/uL POC Glucose (mg/dL) 155 H 44 L 44 L (70-110) mg/dL 09/13/22 09/13/22 Range/Units 06:33 08:16 Lymphocytes # 0.9 L (1.0-4.8) k/uL POC Glucose (mg/dL) 60 L (70-110) mg/dL Assessment and Plan Assessment: acute on chronic hypoxic respiratory failure Acute on chronic exacerbation of congestive heart failure , diastolic Diabetes mellitus with hyperglycemia, improving Underlying history of valvular heart disease, with history of aortic valve replacement in January 2015 Acute right lower lobe infiltrate suggestive of pneumonia Mild elevation in troponin level on presentation Underlying history of colon cancer status post surgery with ileostomy placement Underlying history of coronary artery disease with history of myocardial infarction in 2012 Underlying history of chronic kidney disease stage III Underlying history of insulin-dependent diabetes mellitus Underlying history of atrial fibrillation, Currently on Eliquis Underlying history of hypertension Underlying history of hyperlipidemia Underlying history of gout Plan: Continue with IV Lasix Continue CPAP and oxygen as needed Check pro-calcitonin, He is currently on Zithromax and ceftriaxone Continue with home dose of Eliquis Summary consult is on the case including pulmonary, nephrology and cardiology Labs and medication were reviewed.. Continue same treatment. Continue with symptomatic treatment. Resume home medication. Monitor labs and vitals. DVT and GI prophylaxis. Further recommendations as per clinical course of the patient DVT prophylaxis: Eliquis GI Prophylaxis: Ppi PT/OT: Pending Prognosis is guarded
[2022-09-13 16:32] LABS: Glucose,Whole Blood 187 mg/dL (70-110)
[2022-09-13 20:07] LABS: Glucose,Whole Blood 170 mg/dL (70-110)
[2022-09-13] MEDS: LATANOPROST 0.005% OPHTH DROPS 2.5 ML BTL BOTH EYES SCH (21:05)
[2022-09-13] MEDS: CYCLOBENZAPRINE 10 MG TAB PO SCH (21:05)
[2022-09-13 23:24] LABS: Glucose,Whole Blood 177 mg/dL (70-110)
[2022-09-13] MEDS: INSULIN DETEMIR (LEVEMIR) 100 UNIT/ML SYR SQ SCH (23:46)
[2022-09-14] MEDS: INSULIN ASPART (NovoLOG) 100 UNIT/ML VIAL SQ SCH ×5 (06:12→20:32)
[2022-09-14 06:14] LABS: Glucose,Whole Blood 81 mg/dL (70-110)
[2022-09-14] MEDS: PANTOPRAZOLE 40 MG TABLET PO SCH (06:19)
[2022-09-14] MEDS ORDERED: metOLazone 5 MG TAB PO SCH (09:00)
[2022-09-14] MEDS: AZITHROMYCIN 500 MG in SODIUM CHLORIDE 0.9% 250 ML IVPB SCH (09:32)
[2022-09-14] MEDS: FUROSEMIDE 10 MG/ML 10 ML VIAL IV SCH ×2 (09:33→20:32)
[2022-09-14] MEDS: HYDROcodone/APAP 10-325MG 1 EACH TAB PO SCH ×3 (09:33→22:46)
[2022-09-14] MEDS: MAGNESIUM OXIDE 400 MG TAB PO SCH ×2 (09:33→20:31)
[2022-09-14] MEDS: APIXABAN 5 MG TAB PO SCH ×2 (09:33→20:31)
[2022-09-14] MEDS: POTASSIUM CHLORIDE ER 10 MEQ TAB.ER.PRT PO SCH (09:33)
[2022-09-14] MEDS: METOPROLOL SUCCINATE (ER) 25 MG TAB.ER.24H PO SCH ×2 (09:33→20:32)
[2022-09-14] MEDS: DILTIAZEM ORAL 30 MG TAB PO SCH ×3 (09:33→22:46)
[2022-09-14] MEDS: metOLazone 5 MG TAB PO SCH (09:34)
[2022-09-14] MEDS: PRAVASTATIN SODIUM 20 MG TAB PO SCH (09:34)
[2022-09-14] MEDS: FENOFIBRATE 160 MG TAB PO SCH (09:34)
--- NOTE | 2022-09-14 10:14 | P.PN ---
Subjective Patient is seen in follow-up for chronic kidney disease. Renal function fairly stable as of yesterday. Maintain on IV Lasix. Good urine output. Edema improving. Currently on nasal cannula. Oral intake fair. Vital signs are stable. General: No acute distress. HEENT: Head exam is unremarkable. On nasal cannula. LUNGS: Breath sounds decreased. HEART: Rate and Rhythm are regular. ABDOMEN: Soft, obese. EXTREMITITES: 1+ edema. Objective - Vital Signs Vital signs: Vital Signs Temp 97.8 F 09/14/22 00:00 Pulse 87 09/14/22 08:00 Resp 16 09/14/22 08:00 BP 148/68 09/14/22 08:00 Pulse Ox 98 09/14/22 09:11 FiO2 30 09/14/22 09:11 Intake & Output 09/13/22 09/14/22 09/14/22 18:59 06:59 18:59 Intake Total 1047 237 120 Output Total 2750 0265 500 Balance -8279 -2163 -380 Weight 108.1 kg Intake: Intake, IV Titration 300 Amount Azithromycin 500 mg In 250 Sodium Chloride 0.9% 250 ml @ 250 mls/hr IVPB DAILY [facility] Rx#:[id number] cefTRIAXone 1 gm In 50 Sodium Chloride 0.9% 50 ml @ 100 mls/hr IVPB Q24HR [facility] Rx#:[id number] Oral 747 237 120 Output: Urine 1800 1325 500 Stool 950 300 Urine/Stool Mix 200 Other: Voiding Method Urinal Urinal # Voids 3 - Labs CBC & Chem 7: 09/13/22 08:16 09/13/22 08:16 Labs: Abnormal Lab Results - Last 24 Hours (Table) 09/13/22 09/13/22 09/13/22 Range/Units 08:16 11:46 16:31 POC Glucose (mg/dL) 189 H 187 H (70-110) mg/dL Procalcitonin 0.16 H (0.02-0.09) ng/mL 09/13/22 09/13/22 Range/Units 20:06 23:21 POC Glucose (mg/dL) 170 H 177 H (70-110) mg/dL Procalcitonin (0.02-0.09) ng/mL Assessment and Plan Plan: Assessment: 1. Acute kidney injury mostly prerenal secondary to cardiorenal syndrome. Creatinine fairly stable at 2.48 yesterday. No hydronephrosis noted on kidney ultrasound. UA fairly benign. 2. Chronic kidney disease stage IV secondary to nephrosclerosis with baseline creatinine in the range of 2-3 over the last year. 3. Volume overload. Improved with diuresis. 4. Acute on chronic diastolic CHF with moderate to severe tricuspid regurgitation, moderate mitral regurgitation and severe pulmonary hypertension. 5. Diabetes mellitus. 6. History of A. fib. Plan: Maintain IV Lasix. Low-salt diet. 1500 mL fluid restriction. Continue to monitor renal function and urine output.
[2022-09-14 11:34] LABS: Glucose,Whole Blood 115 mg/dL (70-110)
--- NOTE | 2022-09-14 14:42 | P.PN ---
Subjective Progress Note Date: 09/14/22 Principal diagnosis: Shortness of breath. The patient is seen today 09/06/2022 in follow-up on the selective care unit. He is currently sitting up at the bedside. Awake and alert in no acute distress. He is maintaining O2 saturations in the 90s on 2 L/m per nasal cannula. He has been utilizing CPAP at 13 cm water throughout the night. Normal saline at KVO. Ultrasound of the kidneys revealed no evidence of hydronephrosis or masses. Bladder is not distended. White count 7.3. Hemoglobin 12.6. Sodium 138. Potassium 4.8. Chloride 100. Bicarb 30. BUN 47. Creatinine 2.82. Glucose 185. He is continued on IV diuretics Lasix 40 mg every 8 hours. Antibiotics in the form of ceftriaxone and azithromycin. Anticoagulated with Eliquis. The patient is seen today 09/07/2022 in follow-up on the selective care unit. He is currently sitting up in a chair at the bedside. Currently wearing his CPAP at 13 cm of water. He states he is feeling better. Otherwise he is maintaining good O2 saturations in the 90s on 2 L/m per nasal cannula. He has less crackles posterior. He remains in a negative balance of 3 L. Follow-up chest x-ray shows continued cardiomegaly and improving pulmonary venous congestion. There is persistent right perihilar and right lower lobe in filtrate. Patchy density in the left medial lung bases well. White count 8.0. He will then 12.9. Sodium 140. Potassium 4.2. BUN 50. Creatinine 2.65. He is continued on Augmentin. Continued on IV Lasix. The patient is seen today 09/09/2022 in follow-up on the selective care unit. He is currently wearing his CPAP at 13 cm of water. Utilizing it throughout the night. Otherwise maintaining good O2 saturations in the 90s on 2 L. He sitting up in a chair. Sodium 141. Potassium 3.8. BUN 51. Creatinine 2.37. He is continued on antibiotics in the form of Augmentin. Remains on IV diuretics. Anticoagulated with Eliquis. Progress note dated 09/10/2022. The patient is seen today in room 371. He sitting at the edge of the bed. He is on 3 L of oxygen. He is getting saline at 20 mL an hour. He uses CPAP throughout the night, at 13 cm water. Sometimes he'll use it in the daytime as well. Clinically, he is doing much better. He short of breath on exertion. The patient does have some lower extremity edema. He denies any chest pain or chest discomfort. He denies any cough, wheezing, or phlegm production. Sodium 144, potassium 3.7, chlorides 107, CO2 30, BUN 52, and creatinine 2.19. Glucose 112. Progress note dated 09/11/2022. The patient is again seen in room 371. He is sitting on the edge of the bed. He is on oxygen at 3 L. At nighttime, he uses his CPAP at 13 cm water. He sometimes uses CPAP during the daytime, when he naps. Clinically, the patient is improved, and could be considered for possible discharge in the near future. No new labs today other than a glucose of 139. No chest x-ray today to speak of. Progress note dated 09/12/2022. The patient is again seen in room 371. He is resting comfortably. He is on oxygen at 3 L. At nighttime, and sometimes during the daytime, he uses CPAP with a pressure setting of 13 cm of water. He's not receiving any IV fluids. His calcitonin level is low at 0.16. Antibiotics are discontinued. No new laboratory data today. From yesterday, his BUN was 59 and creatinine was 2.48. His CBC was normal. Objective - Vital Signs Vital signs: Vital Signs Temp 97.6 F 09/14/22 11:02 Pulse 70 09/14/22 11:02 Resp 16 09/14/22 11:02 BP 127/76 09/14/22 11:02 Pulse Ox 97 09/14/22 11:02 FiO2 30 09/14/22 09:11 Intake & Output 09/13/22 09/14/22 09/14/22 18:59 06:59 18:59 Intake Total 1047 237 240 Output Total 4560 0210 9923 Balance -5358 -4860 -0647 Weight 108.1 kg Intake: Intake, IV Titration 300 Amount Azithromycin 500 mg In 250 Sodium Chloride 0.9% 250 ml @ 250 mls/hr IVPB DAILY [facility] Rx#:[id number] cefTRIAXone 1 gm In 50 Sodium Chloride 0.9% 50 ml @ 100 mls/hr IVPB Q24HR [facility] Rx#:[id number] Oral 747 237 240 Output: Urine 1800 1325 1375 Stool 950 300 200 Urine/Stool Mix 200 Other: Voiding Method Urinal Urinal # Voids 3 - Exam No acute distress, oriented 3. No conversational dyspnea or use of accessory muscles. The patient's on 3 L of oxygen. HEENT examination is grossly unremarkable. Neck supple. Full range of motion. No adenopathy thyromegaly or neck vein distention. Cardiovascular examination reveals regular rhythm rate. S1-S2 normal. No S3 or S4. No discernible murmur noted. Heart sounds are distant. Heart rate 70 bpm. Lungs reveal bibasilar crackles. Breath sounds equal. No wheezes or rhonchi. Saturations are 97 %. Abdomen soft bowel sounds are heard. No masses or tenderness. Extremities reveal mild edema. No cyanosis or clubbing. Mild edema noted. Skin is without rash or lesion. Neurologic examination is brief but nonfocal. - Labs CBC & Chem 7: 09/13/22 08:16 09/13/22 08:16 Labs: Abnormal Lab Results - Last 24 Hours (Table) 09/13/22 09/13/22 09/13/22 Range/Units 08:16 16:31 20:06 POC Glucose (mg/dL) 187 H 170 H (70-110) mg/dL Procalcitonin 0.16 H (0.02-0.09) ng/mL 09/13/22 09/14/22 Range/Units 23:21 11:32 POC Glucose (mg/dL) 177 H 115 H (70-110) mg/dL Procalcitonin (0.02-0.09) ng/mL Assessment and Plan Assessment: Acute hypoxemic respiratory failure secondary to chronic diastolic congestive heart failure. Chronic right lower lobe consolidation, going back to 2020, based on previous x- rays of the chest and previous CT of the chest. Moderate mitral valve regurgitation. Chronic kidney disease. Paroxysmal atrial fibrillation. Type 2 diabetes. Dyslipidemia. Obstructive sleep apnea syndrome, maintained on CPAP at 13 cm of water. Hypothyroidism. History of bowel resection and ileostomy. Plan: Plan dated 09/10/2022. The patient's doing better. He is currently sitting at the bedside on 3 L. Labs, x-rays, and medications are reviewed. He does use CPAP, at 13 cm of water, exclusively at nighttime, and sometimes in the daytime when he gets fatigued or tired. He denies any chest pain or chest discomfort. He is not coughing up producing any phlegm. We will continue to follow the patient and make recommendations along the way. Plan dated 09/11/2022. The patient appears to be doing much better, and could be considered for possible discharge in the next day or so. Clinically, he is much improved. The patient is currently on 3 L. He does use his CPAP device sometime during the daytime, and almost all the time at nighttime. Labs, x-rays, medications are reviewed. The patient could be considered for discharge in the near future. We will continue to follow make recommendations along the way. Plan dated 09/14/2022. The patient appears to be doing relatively well. He remains on 3 L of oxygen. He uses CPAP at nighttime, at 13 cm water. His pro-calcitonin level was low. We stopped the antibiotics. Additional recommendations and suggestions are forthcoming. We will continue to follow this patient and make recommendations a long the way. Overall prognosis remains guarded. The patient should be discharged in the near future. Time with Patient: Less than 30
--- NOTE | 2022-09-14 15:21 | P.PN ---
Subjective Progress Note Date: 09/14/22 Patient is examined today resting comfortably in the bedside chair. He denies any increase chest pain or chest pressure. He reports her shortness of breath is greatly improved. He continues on IV Lasix. Will decrease IV Lasix to 40 mg twice a day. Objective - Vital Signs Vital signs: Vital Signs Temp 97.6 F 09/14/22 11:02 Pulse 70 09/14/22 11:02 Resp 16 09/14/22 11:02 BP 127/76 09/14/22 11:02 Pulse Ox 97 09/14/22 11:02 FiO2 30 09/14/22 09:11 Intake & Output 09/13/22 09/14/22 09/14/22 18:59 06:59 18:59 Intake Total 1047 237 240 Output Total 7410 4595 4985 Balance -8311 -5263 -6291 Weight 108.1 kg Intake: Intake, IV Titration 300 Amount Azithromycin 500 mg In 250 Sodium Chloride 0.9% 250 ml @ 250 mls/hr IVPB DAILY [facility] Rx#:[id number] cefTRIAXone 1 gm In 50 Sodium Chloride 0.9% 50 ml @ 100 mls/hr IVPB Q24HR [facility] Rx#:[id number] Oral 747 237 240 Output: Urine 1800 1325 1575 Stool 950 300 200 Urine/Stool Mix 200 Other: Voiding Method Urinal Urinal # Voids 3 - Exam VITAL SIGNS: Reviewed. GENERAL: Well-developed in no acute distress. NECK: Supple. No JVD or thyromegaly LUNGS: Respirations even and unlabored. Lungs diminished bilaterally. HEART: Regular rate and rhythm. S1 and S2 heard. EXTREMITIES: Normal range of motion. No clubbing or cyanosis. Peripheral pulses intact. 1-2+ bilateral lower extremity edema - Labs CBC & Chem 7: 09/13/22 08:16 09/13/22 08:16 Labs: Abnormal Lab Results - Last 24 Hours (Table) 09/13/22 09/13/22 09/13/22 Range/Units 08:16 16:31 20:06 POC Glucose (mg/dL) 187 H 170 H (70-110) mg/dL Procalcitonin 0.16 H (0.02-0.09) ng/mL 09/13/22 09/14/22 Range/Units 23:21 11:32 POC Glucose (mg/dL) 177 H 115 H (70-110) mg/dL Procalcitonin (0.02-0.09) ng/mL Assessment and Plan Assessment: 1. Acute on chronic diastolic heart failure 2. History of prior bioprosthetic valve replacement 3. Moderate mitral regurgitation 4. Hypertension 5. Chronic kidney disease 6. Paroxysmal atrial fibrillation currently sinus rhythm 7. Troponin elevation not indicative of acute coronary syndrome, chronically elevated secondary to chronic kidney disease Plan: Decrease IV Lasix 40 mg twice a day Monitor kidney function Continue additional cardiac medications Further recommendations based on clinical course The above impression and plan of care have been discussed and directed by the signing physician. Jo Ann Thibodeaux, nurse practitioner, acting as scribe for signing physician.
[2022-09-14 16:33] LABS: Glucose,Whole Blood 145 mg/dL (70-110)
[2022-09-14] MEDS: LATANOPROST 0.005% OPHTH DROPS 2.5 ML BTL BOTH EYES SCH (20:16)
[2022-09-14 20:30] LABS: Glucose,Whole Blood 252 mg/dL (70-110)
[2022-09-14] MEDS: CYCLOBENZAPRINE 10 MG TAB PO SCH (20:32)
[2022-09-14] MEDS: INSULIN DETEMIR (LEVEMIR) 100 UNIT/ML SYR SQ SCH (22:46)
[2022-09-14 22:53] LABS: Glucose,Whole Blood 163 mg/dL (70-110)
--- NOTE | 2022-09-15 03:54 | PN ---
PROGRESS NOTE DATE OF SERVICE: 09/14/2022 SUBJECTIVE: This 71-year-old gentleman who was admitted with acute hypoxic respiratory failure secondary to CHF acute exacerbation, closely monitored. The patient is feeling slightly better. No chest pain. No palpitations. No fever. OBJECTIVE: VITAL SIGNS: Pulse is 83, blood pressure 140/70, respirations 18. HEENT: Conjunctivae normal. NECK: No carotid. CARDIOVASCULAR: S1, S2. RESPIRATORY: Few scattered rhonchi. ABDOMEN: Soft. LEGS: No edema. NERVOUS SYSTEM: No focal deficits. LABS: Reviewed. Creatinine is 2.48. ASSESSMENT: 1. CHF acute exacerbation with acute on chronic diastolic dysfunction with acute hypoxic respiratory failure. 2. Diabetes mellitus, type 2. 3. History of valvular disease. 4. Acute kidney injury. 5. Multiple other medical problems. RECOMMENDATIONS: Recommend to continue current medications, continue symptomatic treatment. Otherwise at this time, I recommend to continue the diuretics cautiously. Repeat labs. Closely follow with Cardiology and Nephrology. Guarded prognosis. Further recommendations to follow. MMODL / IJN: [id number] /
[2022-09-15 06:07] LABS: Glucose,Whole Blood 147 mg/dL (70-110)
[2022-09-15] MEDS: INSULIN ASPART (NovoLOG) 100 UNIT/ML VIAL SQ SCH ×5 (06:13→20:19)
[2022-09-15] MEDS: PANTOPRAZOLE 40 MG TABLET PO SCH (06:30)
--- NOTE | 2022-09-15 09:19 | P.PN ---
Subjective Patient is seen in follow-up for chronic kidney disease. Renal function fairly stable as of 09/13/2022. No labs since. Maintained on IV Lasix. Good urine output. Edema improving. Currently on nasal cannula. Oral intake is good. Blood pressure stable. Vital signs are stable. General: No acute distress. HEENT: Head exam is unremarkable. On nasal cannula. LUNGS: Breath sounds decreased. HEART: Rate and Rhythm are regular. ABDOMEN: Soft, obese. EXTREMITITES: 1+ edema. Objective - Vital Signs Vital signs: Vital Signs Temp 97.7 F 09/15/22 04:00 Pulse 82 09/15/22 04:00 Resp 20 09/15/22 04:00 BP 124/72 09/15/22 04:00 Pulse Ox 94 L 09/15/22 07:22 FiO2 30 09/15/22 04:33 Intake & Output 09/14/22 09/15/22 09/15/22 18:59 06:59 18:59 Intake Total 480 20 Output Total 2950 2200 Balance -2470 -2180 Weight 104.7 kg Intake: IV 20 Invasive Line 1 20 Oral 480 Output: Urine 2450 1700 Stool 500 500 Other: Voiding Method Urinal - Labs CBC & Chem 7: 09/13/22 08:16 09/13/22 08:16 Labs: Abnormal Lab Results - Last 24 Hours (Table) 09/14/22 09/14/22 09/14/22 Range/Units 11:32 16:32 20:28 POC Glucose (mg/dL) 115 H 145 H 252 H (70-110) mg/dL 09/14/22 09/15/22 Range/Units 22:45 06:06 POC Glucose (mg/dL) 163 H 147 H (70-110) mg/dL Assessment and Plan Plan: Assessment: 1. Acute kidney injury mostly prerenal secondary to cardiorenal syndrome. Creatinine fairly stable at 2.48 dated 09/13/2022.. No hydronephrosis noted on kidney ultrasound. UA fairly benign. 2. Chronic kidney disease stage IV secondary to nephrosclerosis with baseline creatinine in the range of 2-3 over the last year. 3. Volume overload. Improved with diuresis. 4. Acute on chronic diastolic CHF with moderate to severe tricuspid regurgitation, moderate mitral regurgitation and severe pulmonary hypertension. 5. Diabetes mellitus. 6. History of A. fib. Plan: Maintain IV Lasix. Low-salt diet. 1500 mL fluid restriction. Continue to monitor renal function and urine output. Follow-up morning labs.
[2022-09-15] MEDS: DILTIAZEM ORAL 30 MG TAB PO SCH ×3 (09:43→23:02)
[2022-09-15] MEDS: POTASSIUM CHLORIDE ER 10 MEQ TAB.ER.PRT PO SCH (09:43)
[2022-09-15] MEDS: FENOFIBRATE 160 MG TAB PO SCH (09:43)
[2022-09-15] MEDS: HYDROcodone/APAP 10-325MG 1 EACH TAB PO SCH ×3 (09:43→23:01)
[2022-09-15] MEDS: metOLazone 5 MG TAB PO SCH (09:43)
[2022-09-15] MEDS: APIXABAN 5 MG TAB PO SCH ×2 (09:43→20:19)
[2022-09-15] MEDS: METOPROLOL SUCCINATE (ER) 25 MG TAB.ER.24H PO SCH ×2 (09:43→20:19)
[2022-09-15] MEDS: ERGOCALCIFEROL 1,250 MCG (50,000 IU) CAPSULE PO SCH (09:44)
[2022-09-15] MEDS: MAGNESIUM OXIDE 400 MG TAB PO SCH ×2 (09:44→20:19)
[2022-09-15] MEDS: FUROSEMIDE 10 MG/ML 10 ML VIAL IV SCH ×2 (09:44→20:19)
[2022-09-15] MEDS: PRAVASTATIN SODIUM 20 MG TAB PO SCH (09:44)
[2022-09-15 12:16] LABS: Glucose,Whole Blood 157 mg/dL (70-110)
--- NOTE | 2022-09-15 12:58 | P.PN ---
Subjective Progress Note Date: 09/15/22 Patient seen today resting comfortably in the bedside chair in no signs of acute distress. He reports his shortness of breath and continues to improve. Will continue with current dose of Lasix. Objective - Vital Signs Vital signs: Vital Signs Temp 97.9 F 09/15/22 08:00 Pulse 84 09/15/22 12:00 Resp 18 09/15/22 12:00 BP 127/71 09/15/22 12:00 Pulse Ox 92 L 09/15/22 12:00 FiO2 30 09/15/22 04:33 Intake & Output 09/14/22 09/15/22 09/15/22 18:59 06:59 18:59 Intake Total 480 20 10 Output Total 2950 2200 Balance -2470 -2180 10 Weight 104.7 kg Intake: IV 20 10 Invasive Line 1 20 10 Oral 480 Output: Urine 2450 1700 Stool 500 500 Other: Voiding Method Urinal - Exam VITAL SIGNS: Reviewed. GENERAL: Well-developed in no acute distress. NECK: Supple. No JVD or thyromegaly LUNGS: Respirations even and unlabored. Lungs diminished bilaterally. HEART: Regular rate and rhythm. S1 and S2 heard. EXTREMITIES: Normal range of motion. No clubbing or cyanosis. Peripheral pulses intact. 1-2+ bilateral lower extremity edema - Labs CBC & Chem 7: 09/13/22 08:16 09/13/22 08:16 Labs: Abnormal Lab Results - Last 24 Hours (Table) 09/14/22 09/14/22 09/14/22 Range/Units 16:32 20:28 22:45 POC Glucose (mg/dL) 145 H 252 H 163 H (70-110) mg/dL 09/15/22 09/15/22 Range/Units 06:06 12:03 POC Glucose (mg/dL) 147 H 157 H (70-110) mg/dL Assessment and Plan Assessment: 1. Acute on chronic diastolic heart failure 2. History of prior bioprosthetic valve replacement 3. Moderate mitral regurgitation 4. Hypertension 5. Chronic kidney disease 6. Paroxysmal atrial fibrillation currently sinus rhythm 7. Troponin elevation not indicative of acute coronary syndrome, chronically elevated secondary to chronic kidney disease Plan: Continue IV Lasix 40 mg twice a day Monitor kidney function Continue additional cardiac medications Further recommendations based on clinical course The above impression and plan of care have been discussed and directed by the signing physician. Jo Ann Thibodeaux, nurse practitioner, acting as scribe for signing physician.
[2022-09-15 13:32] LABS: Calcium 9.3 mg/dL (8.4-10.2); Magnesium 1.8 mg/dL (1.6-2.3); Potassium 3.6 mmol/L (3.5-5.1)
[2022-09-15] MEDS ORDERED: POTASSIUM CHLORIDE ER 20 MEQ TAB.ER PO STA (14:14)
--- NOTE | 2022-09-15 14:39 | P.PN ---
Subjective Progress Note Date: 09/15/22 Principal diagnosis: Shortness of breath. The patient is seen today 09/06/2022 in follow-up on the selective care unit. He is currently sitting up at the bedside. Awake and alert in no acute distress. He is maintaining O2 saturations in the 90s on 2 L/m per nasal cannula. He has been utilizing CPAP at 13 cm water throughout the night. Normal saline at KVO. Ultrasound of the kidneys revealed no evidence of hydronephrosis or masses. Bladder is not distended. White count 7.3. Hemoglobin 12.6. Sodium 138. Potassium 4.8. Chloride 100. Bicarb 30. BUN 47. Creatinine 2.82. Glucose 185. He is continued on IV diuretics Lasix 40 mg every 8 hours. Antibiotics in the form of ceftriaxone and azithromycin. Anticoagulated with Eliquis. The patient is seen today 09/07/2022 in follow-up on the selective care unit. He is currently sitting up in a chair at the bedside. Currently wearing his CPAP at 13 cm of water. He states he is feeling better. Otherwise he is maintaining good O2 saturations in the 90s on 2 L/m per nasal cannula. He has less crackles posterior. He remains in a negative balance of 3 L. Follow-up chest x-ray shows continued cardiomegaly and improving pulmonary venous congestion. There is persistent right perihilar and right lower lobe in filtrate. Patchy density in the left medial lung bases well. White count 8.0. He will then 12.9. Sodium 140. Potassium 4.2. BUN 50. Creatinine 2.65. He is continued on Augmentin. Continued on IV Lasix. The patient is seen today 09/09/2022 in follow-up on the selective care unit. He is currently wearing his CPAP at 13 cm of water. Utilizing it throughout the night. Otherwise maintaining good O2 saturations in the 90s on 2 L. He sitting up in a chair. Sodium 141. Potassium 3.8. BUN 51. Creatinine 2.37. He is continued on antibiotics in the form of Augmentin. Remains on IV diuretics. Anticoagulated with Eliquis. Progress note dated 09/10/2022. The patient is seen today in room 371. He sitting at the edge of the bed. He is on 3 L of oxygen. He is getting saline at 20 mL an hour. He uses CPAP throughout the night, at 13 cm water. Sometimes he'll use it in the daytime as well. Clinically, he is doing much better. He short of breath on exertion. The patient does have some lower extremity edema. He denies any chest pain or chest discomfort. He denies any cough, wheezing, or phlegm production. Sodium 144, potassium 3.7, chlorides 107, CO2 30, BUN 52, and creatinine 2.19. Glucose 112. Progress note dated 09/11/2022. The patient is again seen in room 371. He is sitting on the edge of the bed. He is on oxygen at 3 L. At nighttime, he uses his CPAP at 13 cm water. He sometimes uses CPAP during the daytime, when he naps. Clinically, the patient is improved, and could be considered for possible discharge in the near future. No new labs today other than a glucose of 139. No chest x-ray today to speak of. Progress note dated 09/12/2022. The patient is again seen in room 371. He is resting comfortably. He is on oxygen at 3 L. At nighttime, and sometimes during the daytime, he uses CPAP with a pressure setting of 13 cm of water. He's not receiving any IV fluids. His calcitonin level is low at 0.16. Antibiotics are discontinued. No new laboratory data today. From yesterday, his BUN was 59 and creatinine was 2.48. His CBC was normal. Progress note dated 09/15/2022. The patient is again seen in room 371. He is comfortable. He is on 3 L of oxygen the patient does uses CPAP at nighttime, and sometimes during the daytime as well. He states that his breathing is stable, and pretty much at baseline. He denies any cough, or phlegm production. He denies any chest pain or chest discomfort. His antibiotics were discontinued, because he had a very low pro- calcitonin level, and had nothing to suggest pneumonia or respiratory infection. Sodium 140, potassium 3.6, chlorides 96, CO2 32, anion gap 12, BUN 69, creatinine 2.72. Objective - Vital Signs Vital signs: Vital Signs Temp 97.9 F 09/15/22 08:00 Pulse 84 09/15/22 12:00 Resp 18 09/15/22 12:00 BP 127/71 09/15/22 12:00 Pulse Ox 92 L 09/15/22 12:00 FiO2 30 09/15/22 04:33 Intake & Output 09/14/22 09/15/22 09/15/22 18:59 06:59 18:59 Intake Total 480 20 10 Output Total 2950 2200 Balance -2470 -2180 10 Weight 104.7 kg Intake: IV 20 10 Invasive Line 1 20 10 Oral 480 Output: Urine 2450 1700 Stool 500 500 Other: Voiding Method Urinal - Exam No acute distress, oriented 3. No conversational dyspnea or use of accessory muscles. The patient's on 3 L of oxygen. HEENT examination is grossly unremarkable. Neck supple. Full range of motion. No adenopathy thyromegaly or neck vein distention. Cardiovascular examination reveals regular rhythm rate. S1-S2 normal. No S3 or S4. No discernible murmur noted. Heart sounds are distant. Heart rate 84 bpm. Lungs reveal bibasilar crackles. Breath sounds equal. No wheezes or rhonchi. Saturations are 94 %. Abdomen soft bowel sounds are heard. No masses or tenderness. Extremities reveal mild edema. No cyanosis or clubbing. Mild edema noted. Skin is without rash or lesion. Neurologic examination is brief but nonfocal. - Labs CBC & Chem 7: 09/13/22 08:16 09/15/22 12:46 Labs: Abnormal Lab Results - Last 24 Hours (Table) 09/14/22 09/14/22 09/14/22 Range/Units 16:32 20:28 22:45 Chloride (98-107) mmol/L Carbon Dioxide (22-30) mmol/L BUN (9-20) mg/dL Creatinine (0.66-1.25) mg/dL Glucose (74-99) mg/dL POC Glucose (mg/dL) 145 H 252 H 163 H (70-110) mg/dL 09/15/22 09/15/22 09/15/22 Range/Units 06:06 12:03 12:46 Chloride 96 L (98-107) mmol/L Carbon Dioxide 32 H (22-30) mmol/L BUN 69 H (9-20) mg/dL Creatinine 2.72 H (0.66-1.25) mg/dL Glucose 189 H (74-99) mg/dL POC Glucose (mg/dL) 147 H 157 H (70-110) mg/dL Assessment and Plan Assessment: Acute hypoxemic respiratory failure secondary to chronic diastolic congestive heart failure. Chronic right lower lobe consolidation, going back to 2020, based on previous x- rays of the chest and previous CT of the chest. Moderate mitral valve regurgitation. Chronic kidney disease. Paroxysmal atrial fibrillation. Type 2 diabetes. Dyslipidemia. Obstructive sleep apnea syndrome, maintained on CPAP at 13 cm of water. Hypothyroidism. History of bowel resection and ileostomy. Plan: Plan dated 09/10/2022. The patient's doing better. He is currently sitting at the bedside on 3 L. La bs, x-rays, and medications are reviewed. He does use CPAP, at 13 cm of water, exclusively at nighttime, and sometimes in the daytime when he gets fatigued or tired. He denies any chest pain or chest discomfort. He is not coughing up producing any phlegm. We will continue to follow the patient and make recommendations along the way. Plan dated 09/11/2022. The patient appears to be doing much better, and could be considered for possible discharge in the next day or so. Clinically, he is much improved. The patient is currently on 3 L. He does use his CPAP device sometime during the daytime, and almost all the time at nighttime. Labs, x-rays, medications are reviewed. The patient could be considered for discharge in the near future. We will continue to follow make recommendations along the way. Plan dated 09/14/2022. The patient appears to be doing relatively well. He remains on 3 L of oxygen. He uses CPAP at nighttime, at 13 cm water. His pro-calcitonin level was low. W e stopped the antibiotics. Additional recommendations and suggestions are forthcoming. We will continue to follow this patient and make recommendations along the way. Overall prognosis remains guarded. The patient should be discharged in the near future. Plan dated 09/15/2022. The patient appears be doing relatively well. He remains on oxygen at 3 L. He uses CPAP at nighttime, at 13 cm of water. Antibiotics were discontinued. No obvious infection. The patient could be considered for discharge in the near future. Labs, x-rays, and medications are reviewed. His vital signs are stabl e. We will continue to follow make recommendations along the way. Time with Patient: Less than 30
[2022-09-15 16:44] LABS: Glucose,Whole Blood 197 mg/dL (70-110)
[2022-09-15 19:45] LABS: Glucose,Whole Blood 216 mg/dL (70-110)
[2022-09-15] MEDS: LATANOPROST 0.005% OPHTH DROPS 2.5 ML BTL BOTH EYES SCH (20:15)
[2022-09-15] MEDS: CYCLOBENZAPRINE 10 MG TAB PO SCH (20:19)
[2022-09-15 22:55] LABS: Glucose,Whole Blood 122 mg/dL (70-110)
[2022-09-15] MEDS: INSULIN DETEMIR (LEVEMIR) 100 UNIT/ML SYR SQ SCH (23:02)
--- NOTE | 2022-09-16 01:59 | PN ---
PROGRESS NOTE DATE OF SERVICE: 09/15/2022 SUBJECTIVE: This 71-year-old gentleman with history of CHF acute exacerbation, also had kidney disease. No chest pain, no palpitations, no fever. PHYSICAL EXAMINATION: VITAL SIGNS: Pulse 84, blood pressure 120/70, respirations 18. CHEST: Few scattered rhonchi. CARDIOVASCULAR: S1, S2. ABDOMEN: Soft. NERVOUS SYSTEM: Nonfocal. LABS: Creatinine 2.72, rest of the labs noted. ASSESSMENT: 1. Congestive heart failure acute exacerbation, acute on chronic diastolic dysfunction with acute hypoxic respiratory failure present on admission. 2. Diabetes mellitus, type 2. 3. History of valvular disease. 4. Acute kidney injury. 5. Multiple other medical problems. RECOMMENDATIONS: Recommended to continue current management and symptomatic treatment. Continue with Lasix 60 IV b.i.d. Closely follow with Nephrology, Cardiology. Prognosis guarded. Dr. Rayo will follow tomorrow. MMODL / IJN: [id number] /
[2022-09-16 05:50] LABS: Glucose,Whole Blood 149 mg/dL (70-110)
[2022-09-16] MEDS: INSULIN ASPART (NovoLOG) 100 UNIT/ML VIAL SQ SCH ×5 (06:09→20:09)
[2022-09-16] MEDS: PANTOPRAZOLE 40 MG TABLET PO SCH (06:14)
[2022-09-16 08:36] LABS: Magnesium 1.9 mg/dL (1.6-2.3); Potassium 3.3 mmol/L (3.5-5.1)
[2022-09-16] MEDS ORDERED: POTASSIUM CHLORIDE ER 20 MEQ TAB.ER PO STA (09:28)
--- NOTE | 2022-09-16 09:29 | P.PN ---
Subjective Patient is seen in follow-up for chronic kidney disease. Renal function worsened from diuresis. Maintained on IV Lasix. Good urine output. Edema improving. Currently on nasal cannula. Oral intake is good. Blood pressure stable. Vital signs are stable. General: No acute distress. HEENT: Head exam is unremarkable. On nasal cannula. LUNGS: Breath sounds decreased. HEART: Rate and Rhythm are regular. ABDOMEN: Soft, obese. Colostomy noted. EXTREMITITES: 1+ edema. Objective - Vital Signs Vital signs: Vital Signs Temp 98.4 F 09/15/22 19:49 Pulse 69 09/16/22 04:00 Resp 18 09/16/22 04:00 BP 134/50 09/16/22 04:00 Pulse Ox 96 09/16/22 09:09 FiO2 30 09/16/22 03:40 Intake & Output 09/15/22 09/16/22 09/16/22 18:59 06:59 18:59 Intake Total 500 237 118 Output Total 1000 1675 Balance -500 -1438 118 Weight 103.6 kg Intake: IV 20 Invasive Line 1 20 Oral 480 237 118 Output: Urine 1000 1375 Urine/Stool Mix 300 Other: Voiding Method Urinal # Voids 2 # Bowel Movements 600 - Labs CBC & Chem 7: 09/13/22 08:16 09/16/22 08:02 Labs: Abnormal Lab Results - Last 24 Hours (Table) 09/15/22 09/15/22 09/15/22 Range/Units 12:03 12:46 16:39 Potassium (3.5-5.1) mmol/L Chloride 96 L (98-107) mmol/L Carbon Dioxide 32 H (22-30) mmol/L BUN 69 H (9-20) mg/dL Creatinine 2.72 H (0.66-1.25) mg/dL Glucose 189 H (74-99) mg/dL POC Glucose (mg/dL) 157 H 197 H (70-110) mg/dL 09/15/22 09/15/22 09/16/22 Range/Units 19:44 22:53 05:48 Potassium (3.5-5.1) mmol/L Chloride (98-107) mmol/L Carbon Dioxide (22-30) mmol/L BUN (9-20) mg/dL Creatinine (0.66-1.25) mg/dL Glucose (74-99) mg/dL POC Glucose (mg/dL) 216 H 122 H 149 H (70-110) mg/dL 09/16/22 Range/Units 08:02 Potassium 3.3 L (3.5-5.1) mmol/L Chloride 96 L (98-107) mmol/L Carbon Dioxide 33 H (22-30) mmol/L BUN 74 H (9-20) mg/dL Creatinine 2.81 H (0.66-1.25) mg/dL Glucose 176 H (74-99) mg/dL POC Glucose (mg/dL) (70-110) mg/dL Assessment and Plan Plan: Assessment: 1. Acute kidney injury mostly prerenal secondary to cardiorenal syndrome. Creatinine fairly stable at 2.48 dated 09/13/2022 - 2.81 today. No hydronephrosis noted on kidney ultrasound. UA fairly benign. 2. Chronic kidney disease stage IV secondary to nephrosclerosis with baseline creatinine in the range of 2-3 over the last year. 3. Volume overload. Improved with diuresis. 4. Acute on chronic diastolic CHF with moderate to severe tricuspid regurgitation, moderate mitral regurgitation and severe pulmonary hypertension. 5. Diabetes mellitus. 6. History of A. fib. 7. Hypokalemia from diuresis. Plan: Change IV Lasix to oral torsemide 40 mg once daily. Replace potassium. Low-salt diet. 1500 mL fluid restriction. Continue to monitor renal function and urine output. Repeat labs in the morning.
[2022-09-16] MEDS: FUROSEMIDE 10 MG/ML 10 ML VIAL IV SCH (09:32)
[2022-09-16] MEDS: PRAVASTATIN SODIUM 20 MG TAB PO SCH (09:40)
[2022-09-16] MEDS: METOPROLOL SUCCINATE (ER) 25 MG TAB.ER.24H PO SCH ×2 (09:40→20:10)
[2022-09-16] MEDS: DILTIAZEM ORAL 30 MG TAB PO SCH ×3 (09:40→23:12)
[2022-09-16] MEDS: HYDROcodone/APAP 10-325MG 1 EACH TAB PO SCH ×3 (09:41→23:12)
[2022-09-16] MEDS: MAGNESIUM OXIDE 400 MG TAB PO SCH ×2 (09:41→20:09)
[2022-09-16] MEDS: POTASSIUM CHLORIDE ER 10 MEQ TAB.ER.PRT PO SCH (09:41)
[2022-09-16] MEDS: FENOFIBRATE 160 MG TAB PO SCH (09:41)
[2022-09-16] MEDS: APIXABAN 5 MG TAB PO SCH ×2 (09:41→20:09)
[2022-09-16] MEDS: metOLazone 5 MG TAB PO SCH (09:49)
--- NOTE | 2022-09-16 10:45 | P.PN ---
Subjective Progress Note Date: 09/16/22 Faisal Andrade, is a 71 year old male who presented to [facility] emergency room with a chief complaint of severe shortness of breath, patient stated that he started having shortness of breath and cough 3-4 days prior to presentation and his symptom has been worsening. Patient was evaluated in the emergency room he was in acute respiratory distress he was started on BiPAP. He was evaluated in the emergency room vital examination on presentation revealed a temperature of 97.9 pulse 90 respiration 54 blood pressure 157/97 pulse ox 92% on BiPAP Laboratory data revealed a white blood count of 9.9 hemoglobin 13.7 platelet count 200 sodium 140 potassium 4.6 BUN 41 creatinine 2.29 troponin level 0.074 Testing in the emergency room revealed chest x-ray done in the emergency room revealed evidence of pulmonary venous congestion and the right lower lobe infiltrate as well as bilateral small pleural effusions, EKG revealed sinus rhythm with first-degree AV block and right bundle branch block Patient was admitted to medical floor for further evaluation and treatment, he was started on IV Lasix and IV antibiotics pulmonary consultation and cardiology consultation were requested On 09/06/2022 patient reports some improvement with shortness of breath. Patient remains on IV antibiotics Rocephin and azithromycin. Patient also maintained on IV Lasix. Cardiology and pulmonary services are following. Creatinine 2.82 and bun 47 this does appear chronic for patient will continue to monitor while patient is on IV Lasix. Patient denies chest pain. Patient does report some shortness of breast oh. Patient denies nausea vomiting or diarrhea. Patient denies any urinary burning or frequency On 09/07/2022 patient was seen and examined on the telemetry floor he is alert and oriented 3 in no apparent distress he is still complaining of shortness of breath and cough otherwise he denies any complaints there is no fever or chills no headache or dizziness no chest pain no nausea or vomiting no abdominal pain no diarrhea no blood in the stools no burning with urination no frequency or urgency and no hematuria. On 09/08/2022 patient was seen and examined on the medical floor he is alert and oriented 3 in no apparent distress he is still complaining of cough and shortness of breath with activity otherwise he denies any complaints there is no fever or chills no headache or dizziness no chest pain no nausea or vomiting no abdominal pain no diarrhea no blood in the stools no burning with urination no frequency or urgency and no hematuria. On 09/09/2022 patient was seen and examined on the medical floor, he is alert and oriented 3 in no apparent distress he is still complaining of severe shortness of breath with any activity otherwise he denies any complaints there is no fever or chills no headache or dizziness no chest pain, he has occasional cough no nausea or vomiting no abdominal pain no diarrhea no blood in the stools and no urinary symptoms, he is still maintained on IV Lasix, cardiology are following On 09/10/2022 patient was seen and examined on the medical floor, he is alert and oriented 3 in no he is still complaining of severe shortness of breath with any activity otherwise he denies any complaints there is no fever or chills no headache or dizziness no chest pain, he has occasional cough no nausea or vomiting no abdominal pain no diarrhea no blood in the stools and no urinary symptoms, he is still maintained on IV Lasix, cardiology and nephrology are following On 09/11/2022 patient was seen and examined on the telemetry floor he is alert and oriented 3 in no apparent distress IV Lasix was discontinued yesterday and patient was started on oral Lasix today he is complaining of worsening shortness of breath today otherwise he denies any complaints there is no fever or chills no headache or dizziness there is occasional cough no chest pain no nausea or vomiting no abdominal pain no diarrhea and no urinary symptoms. Plan is to continue with oral Lasix recheck chest x-ray and labs in a.m. possible discharge to home tomorrow if stable On 09/12/2022 patient was seen and examined on the telemetry floor he is alert and oriented 3 in no apparent distress this morning he was complaining of severe shortness of breath he was evaluated by nephrology and he was restarted on IV Lasix chest x-ray reveals worsening congestion and possible pneumonia at this time will discontinue Augmentin and start IV Rocephin and IV Zithromax continue with IV Lasix continue to follow closely Dr. Jackson's group covering 09/13/2022 to 09/15/2022 I am resuming care on 09/16/2022 On 09/16/2022 patient is alert and oriented 3 Lasix has been changed to torsemide per nephrology services. Today patient has been changed over from IV Lasix to oral torsemide. Creatinine slightly increased today to 2.81. The patient denies chest pain. Patient reports improvement with shortness of breath. Patient denies nausea vomiting or diarrhea. Patient denies any urinary burning or frequency. Repeat labs in a.m. to assess kidney function Objective - Vital Signs Vital signs: Vital Signs Temp 98.1 F 09/16/22 08:00 Pulse 74 09/16/22 08:00 Resp 18 09/16/22 08:00 BP 116/63 09/16/22 08:00 Pulse Ox 96 09/16/22 09:09 FiO2 30 09/16/22 03:40 Intake & Output 09/15/22 09/16/22 09/16/22 18:59 06:59 18:59 Intake Total 500 237 118 Output Total 1000 1675 250 Balance -500 -1438 -132 Weight 103.6 kg Intake: IV 20 Invasive Line 1 20 Oral 480 237 118 Output: Urine 1000 1375 250 Urine/Stool Mix 300 Other: Voiding Method Urinal Urinal # Voids 2 # Bowel Movements 600 350 - Exam In general patient is alert and oriented x 3 in no distress HEENT head normocephalic and atraumatic Neck is supple no JVD no goiter no lymphadenopathy no carotid bruit Chest examination revealed coarse crackles in both lung zhang no wheezing Cardiac exam reveals regular heart sounds S1 and S2 no gallops no murmurs Abdomen is soft nontender no organomegaly with normal bowel sounds Extremity exam reveals no edema no cyanosis or clubbing Neurological examination reveals no gross focal deficits - Labs CBC & Chem 7: 09/13/22 08:16 09/16/22 08:02 Labs: Abnormal Lab Results - Last 24 Hours (Table) 09/15/22 09/15/22 09/15/22 Range/Units 12:03 12:46 16:39 Potassium (3.5-5.1) mmol/L Chloride 96 L (98-107) mmol/L Carbon Dioxide 32 H (22-30) mmol/L BUN 69 H (9-20) mg/dL Creatinine 2.72 H (0.66-1.25) mg/dL Glucose 189 H (74-99) mg/dL POC Glucose (mg/dL) 157 H 197 H (70-110) mg/dL 09/15/22 09/15/22 09/16/22 Range/Units 19:44 22:53 05:48 Potassium (3.5-5.1) mmol/L Chloride (98-107) mmol/L Carbon Dioxide (22-30) mmol/L BUN (9-20) mg/dL Creatinine (0.66-1.25) mg/dL Glucose (74-99) mg/dL POC Glucose (mg/dL) 216 H 122 H 149 H (70-110) mg/dL 09/16/22 Range/Units 08:02 Potassium 3.3 L (3.5-5.1) mmol/L Chloride 96 L (98-107) mmol/L Carbon Dioxide 33 H (22-30) mmol/L BUN 74 H (9-20) mg/dL Creatinine 2.81 H (0.66-1.25) mg/dL Glucose 176 H (74-99) mg/dL POC Glucose (mg/dL) (70-110) mg/dL Assessment and Plan Plan: Severe shortness of breath, with acute on chronic hypoxic respiratory failure Acute exacerbation of congestive heart failure with chest x-ray revealing evidence of pulmonary edema Underlying history of valvular heart disease, with history of aortic valve replacement in January 2015 Acute right lower lobe infiltrate suggestive of pneumonia Mild elevation in troponin level on presentation Underlying history of colon cancer status post surgery with ileostomy placement Underlying history of coronary artery disease with history of myocardial infarction in 2012 Underlying history of chronic kidney disease stage III Underlying history of insulin-dependent diabetes mellitus Underlying history of atrial fibrillation Underlying history of hypertension Underlying history of hyperlipidemia Underlying history of gout Acute on chronic kidney disease stage III IV Lasix has been transitioned to oral torsemide per nephrology Antibiotics DC'd per pulmonary Repeat labs in a.m. to assess kidney function
[2022-09-16 11:57] LABS: Glucose,Whole Blood 184 mg/dL (70-110)
--- NOTE | 2022-09-16 11:59 | P.PN ---
Subjective Patient is pleasant 71-year-old male with history of valvular heart disease status post tissue aortic valve replacement in 2014, minimal nonobstructive triple vessel disease, history of pulmonary embolism maintained on Eliquis, persistent atrial fibrillation status post previous DILLAN and cardioversion, prior TIA, diabetes mellitus type 2, hyperlipidemia, hypertension, chronic kidney disease, obstructive sleep apnea, neuropathy congestive heart failure. He follows in the office with Dr. Bolaños. We have been asked to see in consultation for acute pulmonary edema. Patient presents secondary to increased shortness breath. He states the pharmacy would not fill his Lasix and therefore had been cutting the Lasix down to 1 a day and then every other day over the last week. He has noticed some increase in lower extremity edema. He has been feeling increasing shortness of breath and therefore eventually was at doctor's appointment and feeling more short of breath and EMS was called. Chest x-ray 09/04 showed congestive heart failure with possible underlying pneumonia. He denies any fevers or chills or cough. He shows sinus rhythm with prolonged [place] interval with right bundle branch block with nonspecific ST-T wave abnormalities. 09/12/2022: Echocardiogram reveals ejection fraction 50-55%, inferior basal hypokinesis, moderate mitral stenosis, moderate to severe mitral regurgitation, bioprosthetic aortic valve with severe calcification and severe aortic stenosis and mild aortic regurgitation. 09/16/2022 Patient examined this morning at the bedside. Patient denies chest pain or pressure. Reports improved breathing and LE edema has improved. He has been transitioned to Torsemide by nephrology. Creatinine 2.81 PHYSICAL EXAM: VITAL SIGNS: Reviewed. GENERAL: Well-developed in no acute distress. NECK: Supple. No JVD. LUNGS: Respirations even and unlabored. Lungs decrease air exchange bilaterally. HEART: Regular rate and rhythm. S1 and S2 heard. EXTREMITIES: Normal range of motion. No clubbing or cyanosis. Peripheral pulses intact. 1+ bilateral lower extremity edema ASSESSMENT: Acute on chronic heart failure with preserved ejection fraction Severe aortic stenosis History of prior bioprosthetic aortic valve replacement 2014 Moderate to severe mitral regurgitation Moderate mitral stenosis Hypertension Chronic kidney disease Persistent atrial fibrillation s/p prior cardioversion currently sinus rhythm Troponin elevation not indicative of acute coronary syndrome, chronically elevated secondary to chronic kidney disease Prior TIA Type 2 Diabetes Dyslipidemia Obstructive sleep apnea Minimal nonobstrutive triple vessel coronary artery disease PLAN: Patient transitioned to Torsemide per nephrology Continue additional cardiac medications No further changes from a cardiology perspective, ok to discharge later today vs tomorrow when cleared by primary and other consultants Patient to follow up outpatient with Dr. Bolaños within 1 week. Further management and discussion about aortic and mitral valve as an outpatient. Nurse practitioner note has been reviewed by physician. Signing provider agrees with the documented findings, assessment, and plan of care. Objective - Vital Signs Vital signs: Vital Signs Temp 98.4 F 09/15/22 19:49 Pulse 69 09/16/22 04:00 Resp 18 09/16/22 04:00 BP 134/50 09/16/22 04:00 Pulse Ox 99 09/16/22 04:00 FiO2 30 09/16/22 03:40 Intake & Output 09/15/22 09/15/22 09/16/22 06:59 18:59 06:59 Intake Total 20 500 237 Output Total 2200 1000 1675 Balance -2180 -500 -1438 Weight 104.7 kg 103.6 kg Intake: IV 20 20 Invasive Line 1 20 20 Oral 480 237 Output: Urine 1700 1000 1375 Stool 500 Urine/Stool Mix 300 Other: Voiding Method Urinal Urinal # Voids 2 # Bowel Movements 600 - Labs CBC & Chem 7: 09/13/22 08:16 09/16/22 08:02 Labs: Abnormal Lab Results - Last 24 Hours (Table) 09/15/22 09/15/22 09/15/22 Range/Units 12:03 12:46 16:39 Chloride 96 L (98-107) mmol/L Carbon Dioxide 32 H (22-30) mmol/L BUN 69 H (9-20) mg/dL Creatinine 2.72 H (0.66-1.25) mg/dL Glucose 189 H (74-99) mg/dL POC Glucose (mg/dL) 157 H 197 H (70-110) mg/dL 09/15/22 09/15/22 09/16/22 Range/Units 19:44 22:53 05:48 Chloride (98-107) mmol/L Carbon Dioxide (22-30) mmol/L BUN (9-20) mg/dL Creatinine (0.66-1.25) mg/dL Glucose (74-99) mg/dL POC Glucose (mg/dL) 216 H 122 H 149 H (70-110) mg/dL
[2022-09-16] MEDS: TORSEMIDE 20 MG TAB PO SCH (12:45)
--- NOTE | 2022-09-16 13:58 | P.PN ---
Subjective Progress Note Date: 09/16/22 The patient is seen today 09/06/2022 in follow-up on the selective care unit. He is currently sitting up at the bedside. Awake and alert in no acute distress. He is maintaining O2 saturations in the 90s on 2 L/m per nasal cannula. He has been utilizing CPAP at 13 cm water throughout the night. Norm al saline at KVO. Ultrasound of the kidneys revealed no evidence of hydronephrosis or masses. Bladder is not distended. White count 7.3. Hemoglobin 12.6. Sodium 138. Potassium 4.8. Chloride 100. Bicarb 30. BUN 47. Creatinine 2.82. Glucose 185. He is continued on IV diuretics Lasix 40 mg every 8 hours. Antibiotics in the form of ceftriaxone and azithromycin. Anticoagulated with Eliquis. The patient is seen today 09/07/2022 in follow-up on the selective care unit. He is currently sitting up in a chair at the bedside. Currently wearing his CPAP at 13 cm of water. He states he is feeling better. Otherwise he is maintaining good O2 saturations in the 90s on 2 L/m per nasal cannula. He has less crackles posterior. He remains in a negative balance of 3 L. Follow-up chest x-ray shows continued cardiomegaly and improving pulmonary venous congestion. There is persistent right perihilar and right lower lobe infiltrate. Patchy density in the left medial lung bases well. White count 8.0. He will then 12.9. Sodium 140. Potassium 4.2. BUN 50. Creatinine 2.65. He is continued on Augmentin. Continued on IV Lasix. The patient is seen today 09/09/2022 in follow-up on the selective care unit. He is currently wearing his CPAP at 13 cm of water. Utilizing it throughout the night. Otherwise maintaining good O2 saturations in the 90s on 2 L. He sitting up in a chair. Sodium 141. Potassium 3.8. BUN 51. Creatinine 2.37. He is continued on antibiotics in the form of Augmentin. Remains on IV diuretics. Anticoagulated with Eliquis. Progress note dated 09/10/2022. The patient is seen today in room 371. He sitting at the edge of the bed. He is on 3 L of oxygen. He is getting saline at 20 mL an hour. He uses CPAP throughout the night, at 13 cm water. Sometimes he'll use it in the daytime as well. Clinically, he is doing much better. He short of breath on exertion. The patient does have some lower extremity edema. He denies any chest pain or chest discomfort. He denies any cough, wheezing, or phlegm production. Sodium 144, potassium 3.7, chlorides 107, CO2 30, BUN 52, and creatinine 2.19. Glucose 112. Progress note dated 09/11/2022. The patient is again seen in room 371. He is sitting on the edge of the bed. He is on oxygen at 3 L. At nighttime, he uses his CPAP at 13 cm water. He sometimes uses CPAP during the daytime, when he naps. Clinically, the patient is improved, and could be considered for possible discharge in the near future. No new labs today other than a glucose of 139. No chest x-ray today to speak of. Progress note dated 09/12/2022. The patient is again seen in room 371. He is resting comfortably. He is on oxygen at 3 L. At nighttime, and sometimes during the daytime, he uses CPAP with a pressure setting of 13 cm of water. He's not receiving any IV fluids. His calcitonin level is low at 0.16. Antibiotics are discontinued. No new laboratory data today. From yesterday, his BUN was 59 and creatinine was 2.48. His CBC was normal. Progress note dated 09/15/2022. The patient is again seen in room 371. He is comfortable. He is on 3 L of oxygen the patient does uses CPAP at nighttime, and sometimes during the daytime as well. He states that his breathing is stable, and pretty much at baseline. He denies any cough, or phlegm production. He denies any chest pain or chest discomfort. His antibiotics were discontinued, because he had a very low pro- calcitonin level, and had nothing to suggest pneumonia or respiratory infection. Sodium 140, potassium 3.6, chlorides 96, CO2 32, anion gap 12, BUN 69, creatinine 2.72. 09/16/2022, the patient remains on 3 L oxygen by nasal cannula and overnight he is using his CPAP at a pressure of 16 cm of water. He is doing well. No specific complaints. Heart any mucus production. He shortness of breath is gradually improving. He was treated for a diastolic heart failure with an acute on top of chronic hypoxic respiratory failure. His pro calcitonin level was low and pneumonia was thought to be doubtful at that stage. I reviewed his charts. I noted that the patient was diabetes during this current admission. The most recent chest x-ray was done on 09/12/2022 and there was cardiomegaly and pulmonary vascular congestion and possible some consolidation of the right lung base. This is chronic and a repeat chest x-ray accordingly we will obtain for tomorrow. He has also some postthoracotomy changes. Blood work from today shows a sodium of 140, potassium of 3.3, bicarbonate of 33, BUN of 74 and a creatinine of 2.8 and the patient's creatinine has remained stable. The patient has been on anticoagulation with Eliquis 5 mg by mouth twice a day. He is on Levemir insulin for blood sugar control. I reviewed also a previous CAT scan of the chest from 2020 and showed cardiomegaly and pleural effusions. At that time, the patient lower lobe consolidation right more than left. There was extensive atherosclerotic vascular changes. His most recent echocardiogram that was done during this current admission showed a mild impai rment of LV function with inferobasilar hypokinesis. He had bioprosthetic aortic valve with severe calcification and severe aortic stenosis and mild aortic regurgitation. He also has severe mitral annulus calcification with moderate to severe regurgitation. As such, he does have significant valvular heart disease. His ejection fraction is around 50-55% Objective - Vital Signs Vital signs: Vital Signs Temp 98.1 F 09/16/22 08:00 Pulse 74 09/16/22 08:00 Resp 18 09/16/22 08:00 BP 116/63 09/16/22 08:00 Pulse Ox 96 09/16/22 09:09 FiO2 30 09/16/22 03:40 Intake & Output 09/15/22 09/16/22 09/16/22 18:59 06:59 18:59 Intake Total 500 237 118 Output Total 1000 1675 250 Balance -500 -1438 -132 Weight 103.6 kg Intake: IV 20 Invasive Line 1 20 Oral 480 237 118 Output: Urine 1000 1375 250 Urine/Stool Mix 300 Other: Voiding Method Urinal Urinal # Voids 2 # Bowel Movements 600 350 - Exam No acute distress, oriented 3. No conversational dyspnea or use of accessory muscles. The patient's on 3 L of oxygen. HEENT examination is grossly unremarkable. Neck supple. Full range of motion. No adenopathy thyromegaly or neck vein distention. Cardiovascular examination reveals regular rhythm rate. S1-S2 normal. No S3 or S4. No discernible murmur noted. Heart sounds are distant. Heart rate 84 bpm. Lungs reveal bibasilar crackles. Breath sounds equal. No wheezes or rhonchi. Saturations are 94 %. Abdomen soft bowel sounds are heard. No masses or tenderness. Extremities reveal mild edema. No cyanosis or clubbing. Mild edema noted. Skin is without rash or lesion. Neurologic examination is brief but nonfocal. - Labs CBC & Chem 7: 09/13/22 08:16 09/16/22 08:02 Labs: Abnormal Lab Results - Last 24 Hours (Table) 09/15/22 09/15/22 09/15/22 Range/Units 12:46 16:39 19:44 Potassium (3.5-5.1) mmol/L Chloride 96 L (98-107) mmol/L Carbon Dioxide 32 H (22-30) mmol/L BUN 69 H (9-20) mg/dL Creatinine 2.72 H (0.66-1.25) mg/dL Glucose 189 H (74-99) mg/dL POC Glucose (mg/dL) 197 H 216 H (70-110) mg/dL 09/15/22 09/16/22 09/16/22 Range/Units 22:53 05:48 08:02 Potassium 3.3 L (3.5-5.1) mmol/L Chloride 96 L (98-107) mmol/L Carbon Dioxide 33 H (22-30) mmol/L BUN 74 H (9-20) mg/dL Creatinine 2.81 H (0.66-1.25) mg/dL Glucose 176 H (74-99) mg/dL POC Glucose (mg/dL) 122 H 149 H (70-110) mg/dL 09/16/22 Range/Units 11:55 Potassium (3.5-5.1) mmol/L Chloride (98-107) mmol/L Carbon Dioxide (22-30) mmol/L BUN (9-20) mg/dL Creatinine (0.66-1.25) mg/dL Glucose (74-99) mg/dL POC Glucose (mg/dL) 184 H (70-110) mg/dL Assessment and Plan Plan: Acute hypoxemic respiratory failure secondary to chronic diastolic congestive heart failure. The patient is currently on 3 L of oxygen by nasal cannula Chronic right lower lobe consolidation, going back to 2020, based on previous x-rays of the chest and previous CT of the chest. Moderate-severe aortic valve stenosis/BiPAP or static aortic valve and moderate degree of mitral valve regurgitation. The patient undergone previous aortic valve replacement and the patient has ongoing valvular dysfunction. Chronic kidney disease. Paroxysmal atrial fibrillation. Type 2 diabetes. Dyslipidemia. Obstructive sleep apnea syndrome, maintained on CPAP at 13 cm of water. Hypothyroidism. History of bowel resection and ileostomy. Plan: Repeat chest x-ray in a.m. Continue Demadex Continue anticoagulation with Eliquis Continue CPAP therapy Home oxygen at 2 L We'll continue to follow
[2022-09-16 16:33] LABS: Glucose,Whole Blood 279 mg/dL (70-110)
[2022-09-16 20:05] LABS: Glucose,Whole Blood 259 mg/dL (70-110)
[2022-09-16] MEDS: CYCLOBENZAPRINE 10 MG TAB PO SCH (20:09)
[2022-09-16] MEDS: LATANOPROST 0.005% OPHTH DROPS 2.5 ML BTL BOTH EYES SCH (20:09)
[2022-09-16 23:08] LABS: Glucose,Whole Blood 92 mg/dL (70-110)
[2022-09-16] MEDS: INSULIN DETEMIR (LEVEMIR) 100 UNIT/ML SYR SQ SCH (23:13)
[2022-09-17 06:38] LABS: Glucose,Whole Blood 118 mg/dL (70-110)
[2022-09-17] MEDS: INSULIN ASPART (NovoLOG) 100 UNIT/ML VIAL SQ SCH ×5 (06:44→20:00)
[2022-09-17] MEDS: PANTOPRAZOLE 40 MG TABLET PO SCH (06:45)
[2022-09-17 08:38] LABS: Calcium 8.8 mg/dL (8.4-10.2); Magnesium 1.7 mg/dL (1.6-2.3); Potassium 3.3 mmol/L (3.5-5.1)
[2022-09-17] MEDS: APIXABAN 5 MG TAB PO SCH ×2 (08:43→19:57)
[2022-09-17] MEDS: MAGNESIUM OXIDE 400 MG TAB PO SCH ×2 (08:43→19:57)
[2022-09-17] MEDS: METOPROLOL SUCCINATE (ER) 25 MG TAB.ER.24H PO SCH ×2 (08:43→19:57)
[2022-09-17] MEDS: FENOFIBRATE 160 MG TAB PO SCH (08:43)
[2022-09-17] MEDS: POTASSIUM CHLORIDE ER 10 MEQ TAB.ER.PRT PO SCH ×2 (08:43→19:57)
[2022-09-17] MEDS: DILTIAZEM ORAL 30 MG TAB PO SCH ×3 (08:43→22:52)
[2022-09-17] MEDS: TORSEMIDE 20 MG TAB PO SCH (08:43)
[2022-09-17] MEDS: PRAVASTATIN SODIUM 20 MG TAB PO SCH (08:43)
[2022-09-17] MEDS: HYDROcodone/APAP 10-325MG 1 EACH TAB PO SCH ×3 (08:44→22:52)
--- NOTE | 2022-09-17 09:00 | XR ---
EXAMINATION TYPE: XR chest 1V portable DATE OF EXAM: 09/17/2022 COMPARISON: 09/12/2022 HISTORY: Shortness of breath TECHNIQUE: Single frontal view of the chest is obtained. FINDINGS: Postoperative changes with cardiomegaly is seen and there is underlying COPD with bibasila r infiltrate and small effusion. Mild coarsening of the interstitium. IMPRESSION: Persistent interstitial pattern with more confluent density in the right middle and lowe r lobe. Differential diagnosis would include CHF with asymmetric pulmonary edema versus underlying pn eumonia.
[2022-09-17] MEDS ORDERED: POTASSIUM CHLORIDE ER 20 MEQ TAB.ER PO STA (10:39)
[2022-09-17] MEDS ORDERED: MAGNESIUM SULFATE-D5W PMX 1 GM in DEXTROSE/WATER 1 100ML.BAG IVPB ONE (10:40)
--- NOTE | 2022-09-17 10:40 | P.PN ---
Subjective Patient is seen in follow-up for chronic kidney disease. Renal function stable. Maintained on torsemide. Good urine output. Edema improving. Currently on nasal cannula. Oral intake is good. Blood pressure stable. No active complaints. Vital signs are stable. General: No acute distress. HEENT: Head exam is unremarkable. On nasal cannula. LUNGS: Breath sounds decreased. HEART: Rate and Rhythm are regular. ABDOMEN: Soft, obese. Colostomy noted. EXTREMITITES: 1+ edema. Objective - Vital Signs Vital signs: Vital Signs Temp 98.2 F 09/17/22 08:00 Pulse 75 09/17/22 08:00 Resp 16 09/17/22 08:00 BP 120/59 09/17/22 08:00 Pulse Ox 95 09/17/22 08:00 FiO2 30 09/17/22 03:19 Intake & Output 09/16/22 09/17/22 09/17/22 18:59 06:59 18:59 Intake Total 354 240 358 Output Total 1000 1500 150 Balance -646 -1260 208 Weight 103.6 kg Intake: Oral 354 240 358 Output: Urine 800 1050 150 Stool 200 450 Other: Voiding Method Urinal Urinal # Bowel Movements 350 - Labs CBC & Chem 7: 09/13/22 08:16 09/17/22 07:58 Labs: Abnormal Lab Results - Last 24 Hours (Table) 09/16/22 09/16/22 09/16/22 Range/Units 11:55 16:31 20:04 Potassium (3.5-5.1) mmol/L Chloride (98-107) mmol/L Carbon Dioxide (22-30) mmol/L BUN (9-20) mg/dL Creatinine (0.66-1.25) mg/dL Glucose (74-99) mg/dL POC Glucose (mg/dL) 184 H 279 H 259 H (70-110) mg/dL 09/17/22 09/17/22 Range/Units 06:38 07:58 Potassium 3.3 L (3.5-5.1) mmol/L Chloride 96 L (98-107) mmol/L Carbon Dioxide 31 H (22-30) mmol/L BUN 78 H (9-20) mg/dL Creatinine 2.83 H (0.66-1.25) mg/dL Glucose 179 H (74-99) mg/dL POC Glucose (mg/dL) 118 H (70-110) mg/dL Assessment and Plan Plan: Assessment: 1. Acute kidney injury mostly prerenal secondary to cardiorenal syndrome. Creatinine fairly stable at 2.48 dated 09/13/2022 - 2.83 today. No hydronephrosis noted on kidney ultrasound. UA fairly benign. 2. Chronic kidney disease stage IV secondary to nephrosclerosis with baseline creatinine in the range of 2-3 over the last year. 3. Volume overload. Improved with diuresis. 4. Acute on chronic diastolic CHF with moderate to severe tricuspid regurgitation, moderate mitral regurgitation and severe pulmonary hypertension. 5. Diabetes mellitus. 6. History of A. fib. 7. Hypokalemia from diuresis. 8. Mild hypomagnesemia from diuresis and GI losses. Plan: Maintain torsemide. Replace potassium and magnesium. Low-salt diet. 1500 mL fluid restriction. Continue to monitor renal function and urine output. Repeat labs in the morning.
[2022-09-17 11:36] LABS: Glucose,Whole Blood 186 mg/dL (70-110)
--- NOTE | 2022-09-17 12:22 | P.PN ---
Subjective Patient is pleasant 71-year-old male with history of valvular heart disease status post tissue aortic valve replacement in 2014, minimal nonobstructive triple vessel disease, history of pulmonary embolism maintained on Eliquis, persistent atrial fibrillation status post previous DILLAN and cardioversion, prior TIA, diabetes mellitus type 2, hyperlipidemia, hypertension, chronic kidney disease, obstructive sleep apnea, neuropathy congestive heart failure. He follows in the office with Dr. Bolaños. We have been asked to see in consultation for acute pulmonary edema. Patient presents secondary to increased shortness breath. He states the pharmacy would not fill his Lasix and therefore had been cutting the Lasix down to 1 a day and then every other day over the last week. He has noticed some increase in lower extremity edema. He has been feeling increasing shortness of breath and therefore eventually was at doctor's appointment and feeling more short of breath and EMS was called. Chest x-ray 09/04 showed congestive heart failure with possible underlying pneumonia. He denies any fevers or chills or cough. He shows sinus rhythm with prolonged [place] interval with right bundle branch block with nonspecific ST-T wave abnormalities. 09/12/2022: Echocardiogram reveals ejection fraction 50-55%, inferior basal hypokinesis, moderate mitral stenosis, moderate to severe mitral regurgitation, bioprosthetic aortic valve with severe calcification and severe aortic stenosis and mild aortic regurgitation. 09/17/2022 Patient examined this morning at the bedside. Patient denies chest pain or pressure. Reports improved breathing and LE edema has improved. He has been transitioned to Torsemide by nephrology yesterday. Creatinine 2.83. No acute events overnight. PHYSICAL EXAM: VITAL SIGNS: Reviewed. GENERAL: Well-developed in no acute distress. NECK: Supple. No JVD. LUNGS: Respirations even and unlabored. Lungs decrease air exchange bilaterally. HEART: Regular rate and rhythm. S1 and S2 heard. Systolic murmur right sternal border and apex EXTREMITIES: Normal range of motion. No clubbing or cyanosis. Peripheral pulses intact. 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 Bolaños within 1 week. Further management and discussion about aortic and mitral valve as an outpatient. Nurse practitioner note has been reviewed by physician. Signing provider agrees with the documented findings, assessment, and plan of care. Objective - Vital Signs Vital signs: Vital Signs Temp 98.2 F 09/17/22 08:00 Pulse 75 09/17/22 08:00 Resp 16 09/17/22 08:00 BP 120/59 09/17/22 08:00 Pulse Ox 95 09/17/22 08:00 FiO2 30 09/17/22 03:19 Intake & Output 09/16/22 09/17/22 09/17/22 18:59 06:59 18:59 Intake Total 354 240 358 Output Total 1000 1500 150 Balance -646 -1260 208 Weight 103.6 kg Intake: Oral 354 240 358 Output: Urine 800 1050 150 Stool 200 450 Other: Voiding Method Urinal Urinal # Bowel Movements 350 - Labs CBC & Chem 7: 09/13/22 08:16 09/17/22 07:58 Labs: Abnormal Lab Results - Last 24 Hours (Table) 09/16/22 09/16/22 09/16/22 Range/Units 11:55 16:31 20:04 Potassium (3.5-5.1) mmol/L Chloride (98-107) mmol/L Carbon Dioxide (22-30) mmol/L BUN (9-20) mg/dL Creatinine (0.66-1.25) mg/dL Glucose (74-99) mg/dL POC Glucose (mg/dL) 184 H 279 H 259 H (70-110) mg/dL 09/17/22 09/17/22 Range/Units 06:38 07:58 Potassium 3.3 L (3.5-5.1) mmol/L Chloride 96 L (98-107) mmol/L Carbon Dioxide 31 H (22-30) mmol/L BUN 78 H (9-20) mg/dL Creatinine 2.83 H (0.66-1.25) mg/dL Glucose 179 H (74-99) mg/dL POC Glucose (mg/dL) 118 H (70-110) mg/dL
[2022-09-17 12:59] VITALS: BMI 39.2
--- NOTE | 2022-09-17 16:05 | P.PN ---
Subjective Progress Note Date: 09/17/22 The patient is seen today 09/06/2022 in follow-up on the selective care unit. He is currently sitting up at the bedside. Awake and alert in no acute distress. He is maintaining O2 saturations in the 90s on 2 L/m per nasal cannula. He has been utilizing CPAP at 13 cm water throughout the night. Norm al saline at KVO. Ultrasound of the kidneys revealed no evidence of hydronephrosis or masses. Bladder is not distended. White count 7.3. Hemoglobin 12.6. Sodium 138. Potassium 4.8. Chloride 100. Bicarb 30. BUN 47. Creatinine 2.82. Glucose 185. He is continued on IV diuretics Lasix 40 mg every 8 hours. Antibiotics in the form of ceftriaxone and azithromycin. Anticoagulated with Eliquis. The patient is seen today 09/07/2022 in follow-up on the selective care unit. He is currently sitting up in a chair at the bedside. Currently wearing his CPAP at 13 cm of water. He states he is feeling better. Otherwise he is maintaining good O2 saturations in the 90s on 2 L/m per nasal cannula. He has less crackles posterior. He remains in a negative balance of 3 L. Follow-up chest x-ray shows continued cardiomegaly and improving pulmonary venous congestion. There is persistent right perihilar and right lower lobe infiltrate. Patchy density in the left medial lung bases well. White count 8.0. He will then 12.9. Sodium 140. Potassium 4.2. BUN 50. Creatinine 2.65. He is continued on Augmentin. Continued on IV Lasix. The patient is seen today 09/09/2022 in follow-up on the selective care unit. He is currently wearing his CPAP at 13 cm of water. Utilizing it throughout the night. Otherwise maintaining good O2 saturations in the 90s on 2 L. He sitting up in a chair. Sodium 141. Potassium 3.8. BUN 51. Creatinine 2.37. He is continued on antibiotics in the form of Augmentin. Remains on IV diuretics. Anticoagulated with Eliquis. Progress note dated 09/10/2022. The patient is seen today in room 371. He sitting at the edge of the bed. He is on 3 L of oxygen. He is getting saline at 20 mL an hour. He uses CPAP throughout the night, at 13 cm water. Sometimes he'll use it in the daytime as well. Clinically, he is doing much better. He short of breath on exertion. The patient does have some lower extremity edema. He denies any chest pain or chest discomfort. He denies any cough, wheezing, or phlegm production. Sodium 144, potassium 3.7, chlorides 107, CO2 30, BUN 52, and creatinine 2.19. Glucose 112. Progress note dated 09/11/2022. The patient is again seen in room 371. He is sitting on the edge of the bed. He is on oxygen at 3 L. At nighttime, he uses his CPAP at 13 cm water. He sometimes uses CPAP during the daytime, when he naps. Clinically, the patient is improved, and could be considered for possible discharge in the near future. No new labs today other than a glucose of 139. No chest x-ray today to speak of. Progress note dated 09/12/2022. The patient is again seen in room 371. He is resting comfortably. He is on oxygen at 3 L. At nighttime, and sometimes during the daytime, he uses CPAP with a pressure setting of 13 cm of water. He's not receiving any IV fluids. His calcitonin level is low at 0.16. Antibiotics are discontinued. No new laboratory data today. From yesterday, his BUN was 59 and creatinine was 2.48. His CBC was normal. Progress note dated 09/15/2022. The patient is again seen in room 371. He is comfortable. He is on 3 L of oxygen the patient does uses CPAP at nighttime, and sometimes during the daytime as well. He states that his breathing is stable, and pretty much at baseline. He denies any cough, or phlegm production. He denies any chest pain or chest discomfort. His antibiotics were discontinued, because he had a very low pro- calcitonin level, and had nothing to suggest pneumonia or respiratory infection. Sodium 140, potassium 3.6, chlorides 96, CO2 32, anion gap 12, BUN 69, creatinine 2.72. 09/16/2022, the patient remains on 3 L oxygen by nasal cannula and overnight he is using his CPAP at a pressure of 13 cm of water. He is doing well. No specific complaints. Heart any mucus production. He shortness of breath is gradually improving. He was treated for a diastolic heart failure with an acute on top of chronic hypoxic respiratory failure. His pro calcitonin level was low and pneumonia was thought to be doubtful at that stage. I reviewed his charts. I noted that the patient was diabetes during this current admission. The most recent chest x-ray was done on 09/12/2022 and there was cardiomegaly and pulmonary vascular congestion and possible some consolidation of the right lung base. This is chronic and a repeat chest x-ray accordingly we will obtain for tomorrow. He has also some postthoracotomy changes. Blood work from today shows a sodium of 140, potassium of 3.3, bicarbonate of 33, BUN of 74 and a creatinine of 2.8 and the patient's creatinine has remained stable. The patient has been on anticoagulation with Eliquis 5 mg by mouth twice a day. He is on Levemir insulin for blood sugar control. I reviewed also a previous CAT scan of the chest from 2020 and showed cardiomegaly and pleural effusions. At that time, the patient lower lobe consolidation right more than left. There was extensive atherosclerotic vascular changes. His most recent echocardiogram that was done during this current admission showed a mild impai rment of LV function with inferobasilar hypokinesis. He had bioprosthetic aortic valve with severe calcification and severe aortic stenosis and mild aortic regurgitation. He also has severe mitral annulus calcification with moderate to severe regurgitation. As such, he does have significant valvular heart disease. His ejection fraction is around 50-55% On today's evaluation of 09/17/2022, the patient is stable. The patient remains on oxygen at 3 L/m nasal cannula. The patient is also using CPAP overnight at a pressure of 13 cm of water. The patient remains on Demadex 40 mg by mouth lakia ly. Chest x-ray findings are stable and unchanged and the patient continues to have persistent interstitial pattern a more confluent density in the right middle and right lower lobe and this could be assessed related to CHF/asymmetric edema/pneumonia. I do favor asymmetric pulmonary edema. Pneumonia is felt to be less likely. The patient's is doing well for the most part. His renal function continues to be stable since yesterday with a BUN of 78 and a creatinine of 2.8 and sodium levels of 138. Pro-calcitonin level from 09/13/2022 was essentially low at 0.16. Previous CAT scan of the chest from 2020 showed cardiomegaly and pleural effusions. The patient also had consolidation of the lung for the lung bases right more than left. He has no significant valvular heart disease and the patient has an ejection fraction of 50-55%. He does have over bioprosthetic aortic valve severe calcification and stenosis with mild regurgitation and mitral valve calcification with moderate to severe degree of regurgitation. His left ventricular ejection fraction is preserved at 50-55%. Objective - Vital Signs Vital signs: Vital Signs Temp 98.2 F 09/17/22 08:00 Pulse 75 09/17/22 08:00 Resp 16 09/17/22 08:00 BP 120/59 09/17/22 08:00 Pulse Ox 95 09/17/22 08:00 FiO2 30 09/17/22 03:19 Intake & Output 09/16/22 09/17/22 09/17/22 18:59 06:59 18:59 Intake Total 354 240 358 Output Total 1000 1500 550 Balance -646 -1260 -192 Weight 103.6 kg Intake: Oral 354 240 358 Output: Urine 800 1050 550 Stool 200 450 Other: Voiding Method Urinal Urinal # Voids 2 # Bowel Movements 350 - Exam No acute distress, oriented 3. No conversational dyspnea or use of accessory muscles. The patient's on 3 L of oxygen. HEENT examination is grossly unremarkable. Neck supple. Full range of motion. No adenopathy thyromegaly or neck vein distention. Cardiovascular examination reveals regular rhythm rate. S1-S2 normal. No S3 or S4. No discernible murmur noted. Heart sounds are distant. Heart rate 84 bpm. Lungs reveal bibasilar crackles. Breath sounds equal. No wheezes or rhonchi. Saturations are 94 %. Abdomen soft bowel sounds are heard. No masses or tenderness. Extremities reveal mild edema. No cyanosis or clubbing. Mild edema noted. Skin is without rash or lesion. Neurologic examination is brief but nonfocal. - Labs CBC & Chem 7: 09/13/22 08:16 09/17/22 07:58 Labs: Abnormal Lab Results - Last 24 Hours (Table) 09/16/22 09/16/22 09/16/22 Range/Units 11:55 16:31 20:04 Potassium (3.5-5.1) mmol/L Chloride (98-107) mmol/L Carbon Dioxide (22-30) mmol/L BUN (9-20) mg/dL Creatinine (0.66-1.25) mg/dL Glucose (74-99) mg/dL POC Glucose (mg/dL) 184 H 279 H 259 H (70-110) mg/dL 09/17/22 09/17/22 Range/Units 06:38 07:58 Potassium 3.3 L (3.5-5.1) mmol/L Chloride 96 L (98-107) mmol/L Carbon Dioxide 31 H (22-30) mmol/L BUN 78 H (9-20) mg/dL Creatinine 2.83 H (0.66-1.25) mg/dL Glucose 179 H (74-99) mg/dL POC Glucose (mg/dL) 118 H (70-110) mg/dL Assessment and Plan Plan: Acute hypoxemic respiratory failure secondary to chronic diastolic congestive heart failure. The patient is currently on 3 L of oxygen by nasal cannula, clinically stable. No interval worsening oxygenation. Chest exit finding also stable. Consider interstitial edema/asymmetric pulmonary edema over infection or malignancy. Chronic right lower lobe consolidation, going back to 2020, based on previous x- rays of the chest and previous CT of the chest. Moderate-severe aortic valve stenosis/bioprosthetic aortic valve and moderate degree of mitral valve regurgitation. The patient undergone previous aortic valve replacement and the patient has ongoing valvular dysfunction. Chronic kidney disease. The creatinine is stable at 2.8 with a BUN of 78 Paroxysmal atrial fibrillation. Type 2 diabetes. Dyslipidemia. Obstructive sleep apnea syndrome, maintained on CPAP at 13 cm of water. Hypothyroidism. History of bowel resection and ileostomy. Plan: Repeat chest x-ray in a.m. and a chest x-ray was reviewed and the findings of essentially stable Continue Demadex at a dose of 40 mg by mouth daily Continue anticoagulation with Eliquis Continue CPAP therapy, at 13 cm of water Home oxygen at 2 L We'll continue to follow Monitor renal function Increase mobility We will follow
[2022-09-17 17:05] LABS: Glucose,Whole Blood 248 mg/dL (70-110)
--- NOTE | 2022-09-17 17:48 | P.PN ---
Subjective Progress Note Date: 09/17/22 Faisal Andrade, is a 71 year old male who presented to [facility] emergency room with a chief complaint of severe shortness of breath, patient stated that he started having shortness of breath and cough 3-4 days prior to presentation and his symptom has been worsening. Patient was evaluated in the emergency room he was in acute respiratory distress he was started on BiPAP. He was evaluated in the emergency room vital examination on presentation revealed a temperature of 97.9 pulse 90 respiration 54 blood pressure 157/97 pulse ox 92% on BiPAP Laboratory data revealed a white blood count of 9.9 hemoglobin 13.7 platelet count 200 sodium 140 potassium 4.6 BUN 41 creatinine 2.29 troponin level 0.074 Testing in the emergency room revealed chest x-ray done in the emergency room revealed evidence of pulmonary venous congestion and the right lower lobe infiltrate as well as bilateral small pleural effusions, EKG revealed sinus rhythm with first-degree AV block and right bundle branch block Patient was admitted to medical floor for further evaluation and treatment, he was started on IV Lasix and IV antibiotics pulmonary consultation and cardiology consultation were requested On 09/06/2022 patient reports some improvement with shortness of breath. Patient remains on IV antibiotics Rocephin and azithromycin. Patient also maintained on IV Lasix. Cardiology and pulmonary services are following. Creatinine 2.82 and bun 47 this does appear chronic for patient will continue to monitor while patient is on IV Lasix. Patient denies chest pain. Patient does report some shortness of breast oh. Patient denies nausea vomiting or diarrhea. Patient denies any urinary burning or frequency On 09/07/2022 patient was seen and examined on the telemetry floor he is alert and oriented 3 in no apparent distress he is still complaining of shortness of breath and cough otherwise he denies any complaints there is no fever or chills no headache or dizziness no chest pain no nausea or vomiting no abdominal pain no diarrhea no blood in the stools no burning with urination no frequency or urgency and no hematuria. On 09/08/2022 patient was seen and examined on the medical floor he is alert and oriented 3 in no apparent distress he is still complaining of cough and shortness of breath with activity otherwise he denies any complaints there is no fever or chills no headache or dizziness no chest pain no nausea or vomiting no abdominal pain no diarrhea no blood in the stools no burning with urination no frequency or urgency and no hematuria. On 09/09/2022 patient was seen and examined on the medical floor, he is alert and oriented 3 in no apparent distress he is still complaining of severe shortness of breath with any activity otherwise he denies any complaints there is no fever or chills no headache or dizziness no chest pain, he has occasional cough no nausea or vomiting no abdominal pain no diarrhea no blood in the stools and no urinary symptoms, he is still maintained on IV Lasix, cardiology are following On 09/10/2022 patient was seen and examined on the medical floor, he is alert and oriented 3 in no he is still complaining of severe shortness of breath with any activity otherwise he denies any complaints there is no fever or chills no headache or dizziness no chest pain, he has occasional cough no nausea or vomiting no abdominal pain no diarrhea no blood in the stools and no urinary symptoms, he is still maintained on IV Lasix, cardiology and nephrology are following On 09/11/2022 patient was seen and examined on the telemetry floor he is alert and oriented 3 in no apparent distress IV Lasix was discontinued yesterday and patient was started on oral Lasix today he is complaining of worsening shortness of breath today otherwise he denies any complaints there is no fever or chills no headache or dizziness there is occasional cough no chest pain no nausea or vomiting no abdominal pain no diarrhea and no urinary symptoms. Plan is to continue with oral Lasix recheck chest x-ray and labs in a.m. possible discharge to home tomorrow if stable On 09/12/2022 patient was seen and examined on the telemetry floor he is alert and oriented 3 in no apparent distress this morning he was complaining of severe shortness of breath he was evaluated by nephrology and he was restarted on IV Lasix chest x-ray reveals worsening congestion and possible pneumonia at this time will discontinue Augmentin and start IV Rocephin and IV Zithromax continue with IV Lasix continue to follow closely Dr. Jackson's group covering 09/13/2022 to 09/15/2022 I am resuming care on 09/16/2022 On 09/16/2022 patient is alert and oriented 3 Lasix has been changed to torsemide per nephrology services. Today patient has been changed over from IV Lasix to oral torsemide. Creatinine slightly increased today to 2.81. The patient denies chest pain. Patient reports improvement with shortness of breath. Patient denies nausea vomiting or diarrhea. Patient denies any urinary burning or frequency. Repeat labs in a.m. to assess kidney function On 09/17/2022 patient was seen and examined on the medical floor, he is alert and oriented 3 in no apparent distress he is still complaining of severe shortness of breath with any activity otherwise he denies any complaints there is no fever or chills no headache or dizziness no chest pain, he has occasional cough no nausea or vomiting no abdominal pain no diarrhea no blood in the stools and no urinary symptoms, he is still maintained on IV Lasix, cardiology are following Objective - Vital Signs Vital signs: Vital Signs Temp 98.2 F 09/17/22 08:00 Pulse 80 09/17/22 12:00 Resp 16 09/17/22 12:00 BP 138/67 09/17/22 12:00 Pulse Ox 97 09/17/22 12:00 FiO2 30 09/17/22 03:19 Intake & Output 09/16/22 09/17/22 09/17/22 18:59 06:59 18:59 Intake Total 354 240 476 Output Total 1000 1500 550 Balance -646 -1260 -74 Weight 103.6 kg 103.6 kg Intake: Oral 354 240 476 Output: Urine 800 1050 550 Stool 200 450 Other: Voiding Method Urinal Urinal # Voids 2 # Bowel Movements 350 - Exam In general patient is alert and oriented x 3 in no distress HEENT head normocephalic and atraumatic Neck is supple no JVD no goiter no lymphadenopathy no carotid bruit Chest examination revealed coarse crackles in both lung zhang no wheezing Cardiac exam reveals regular heart sounds S1 and S2 no gallops no murmurs Abdomen is soft nontender no organomegaly with normal bowel sounds Extremity exam reveals no edema no cyanosis or clubbing Neurological examination reveals no gross focal deficits - Labs CBC & Chem 7: 09/13/22 08:16 09/17/22 07:58 Labs: Abnormal Lab Results - Last 24 Hours (Table) 09/16/22 09/16/22 09/17/22 Range/Units 16:31 20:04 06:38 Potassium (3.5-5.1) mmol/L Chloride (98-107) mmol/L Carbon Dioxide (22-30) mmol/L BUN (9-20) mg/dL Creatinine (0.66-1.25) mg/dL Glucose (74-99) mg/dL POC Glucose (mg/dL) 279 H 259 H 118 H (70-110) mg/dL 09/17/22 09/17/22 Range/Units 07:58 11:33 Potassium 3.3 L (3.5-5.1) mmol/L Chloride 96 L (98-107) mmol/L Carbon Dioxide 31 H (22-30) mmol/L BUN 78 H (9-20) mg/dL Creatinine 2.83 H (0.66-1.25) mg/dL Glucose 179 H (74-99) mg/dL POC Glucose (mg/dL) 186 H (70-110) mg/dL Assessment and Plan Plan: Severe shortness of breath, with acute on chronic hypoxic respiratory failure Acute exacerbation of congestive heart failure with chest x-ray revealing evidence of pulmonary edema Underlying history of valvular heart disease, with history of aortic valve replacement in January 2015 Acute right lower lobe infiltrate suggestive of pneumonia Mild elevation in troponin level on presentation Underlying history of colon cancer status post surgery with ileostomy placement Underlying history of coronary artery disease with history of myocardial infarction in 2012 Underlying history of chronic kidney disease stage III Underlying history of insulin-dependent diabetes mellitus Underlying history of atrial fibrillation Underlying history of hypertension Underlying history of hyperlipidemia Underlying history of gout Acute on chronic kidney disease stage III IV Lasix has been transitioned to oral torsemide per nephrology Antibiotics DC'd per pulmonary Repeat labs in a.m. to assess kidney function
[2022-09-17] MEDS: CYCLOBENZAPRINE 10 MG TAB PO SCH (19:57)
[2022-09-17 20:01] LABS: Glucose,Whole Blood 202 mg/dL (70-110)
[2022-09-17] MEDS: INSULIN DETEMIR (LEVEMIR) 100 UNIT/ML SYR SQ SCH (20:03)
[2022-09-17] MEDS: LATANOPROST 0.005% OPHTH DROPS 2.5 ML BTL BOTH EYES SCH (20:05)
[2022-09-18 06:12] LABS: Glucose,Whole Blood 140 mg/dL (70-110)
[2022-09-18] MEDS: INSULIN ASPART (NovoLOG) 100 UNIT/ML VIAL SQ SCH ×5 (06:27→20:49)
[2022-09-18] MEDS: PANTOPRAZOLE 40 MG TABLET PO SCH (06:31)
[2022-09-18] MEDS: DILTIAZEM ORAL 30 MG TAB PO SCH ×3 (08:33→22:49)
[2022-09-18] MEDS: PRAVASTATIN SODIUM 20 MG TAB PO SCH (08:33)
[2022-09-18] MEDS: METOPROLOL SUCCINATE (ER) 25 MG TAB.ER.24H PO SCH ×2 (08:33→20:49)
[2022-09-18] MEDS: TORSEMIDE 20 MG TAB PO SCH (08:33)
[2022-09-18] MEDS: FENOFIBRATE 160 MG TAB PO SCH (08:33)
[2022-09-18] MEDS: MAGNESIUM OXIDE 400 MG TAB PO SCH ×2 (08:33→20:49)
[2022-09-18] MEDS: HYDROcodone/APAP 10-325MG 1 EACH TAB PO SCH ×3 (08:33→22:48)
[2022-09-18] MEDS: APIXABAN 5 MG TAB PO SCH ×2 (08:33→20:49)
[2022-09-18] MEDS: ERGOCALCIFEROL 1,250 MCG (50,000 IU) CAPSULE PO SCH (08:33)
[2022-09-18] MEDS: POTASSIUM CHLORIDE ER 10 MEQ TAB.ER.PRT PO SCH ×2 (08:33→20:49)
[2022-09-18 09:04] LABS: Calcium 9.1 mg/dL (8.4-10.2); Magnesium 2.1 mg/dL (1.6-2.3); Potassium 3.2 mmol/L (3.5-5.1)
[2022-09-18] MEDS ORDERED: POTASSIUM CHLORIDE ER 20 MEQ TAB.ER PO STA (10:52)
--- NOTE | 2022-09-18 10:52 | P.PN ---
Subjective Patient is seen in follow-up for chronic kidney disease. Renal function worse. Maintained on torsemide. Good urine output. Edema improving. Currently on BiPAP. Oral intake is good. Blood pressure stable. No active complaints. Vital signs are stable. General: No acute distress. HEENT: Head exam is unremarkable. On BiPAP. LUNGS: Breath sounds decreased. HEART: Rate and Rhythm are regular. ABDOMEN: Soft, obese. Colostomy noted. EXTREMITITES: 1+ edema. Objective - Vital Signs Vital signs: Vital Signs Temp 98.4 F 09/18/22 08:00 Pulse 70 09/18/22 08:00 Resp 20 09/18/22 08:00 BP 132/79 09/18/22 08:00 Pulse Ox 98 09/18/22 08:00 FiO2 30 09/18/22 08:33 Intake & Output 09/17/22 09/18/22 09/18/22 18:59 06:59 18:59 Intake Total 694 240 118 Output Total 1150 1400 400 Balance -456 -2809 -940 Weight 103.6 kg 103.5 kg Intake: IV 100 Magnesium Sulfate-D5w Pmx 100 1 gm In Dextrose/Water 1 100ml.bag @ 100 mls/hr IVPB ONCE ONE Rx#: [id number] Oral 594 240 118 Output: Urine 850 900 400 Stool 300 500 Other: Voiding Method Urinal # Voids 2 - Labs CBC & Chem 7: 09/13/22 08:16 09/18/22 08:03 Labs: Abnormal Lab Results - Last 24 Hours (Table) 09/17/22 09/17/22 09/17/22 Range/Units 11:33 16:55 19:59 Potassium (3.5-5.1) mmol/L Chloride (98-107) mmol/L Carbon Dioxide (22-30) mmol/L BUN (9-20) mg/dL Creatinine (0.66-1.25) mg/dL Glucose (74-99) mg/dL POC Glucose (mg/dL) 186 H 248 H 202 H (70-110) mg/dL 09/18/22 09/18/22 Range/Units 06:11 08:03 Potassium 3.2 L (3.5-5.1) mmol/L Chloride 92 L (98-107) mmol/L Carbon Dioxide 36 H (22-30) mmol/L BUN 85 H (9-20) mg/dL Creatinine 3.24 H (0.66-1.25) mg/dL Glucose 183 H (74-99) mg/dL POC Glucose (mg/dL) 140 H (70-110) mg/dL Assessment and Plan Plan: Assessment: 1. Acute kidney injury mostly prerenal secondary to cardiorenal syndrome. Renal function worse - cr 3.24 today. No hydronephrosis noted on kidney ultrasound. UA fairly benign. 2. Chronic kidney disease stage IV secondary to nephrosclerosis with baseline creatinine in the range of 2-3 over the last year. 3. Volume overload. Improved with diuresis. 4. Acute on chronic diastolic CHF with moderate to severe tricuspid regurgitation, moderate mitral regurgitation and severe pulmonary hypertension. 5. Diabetes mellitus. 6. History of A. fib. 7. Hypokalemia from diuresis. 8. Mild hypomagnesemia from diuresis and GI losses. Replaced. Better. Plan: Decrease torsemide to 20 mg once daily. Replace potassium. Low-salt diet. 1500 mL fluid restriction. Continue to monitor renal function and urine output. Repeat labs in the morning.
[2022-09-18 11:49] LABS: Glucose,Whole Blood 201 mg/dL (70-110)
--- NOTE | 2022-09-18 13:18 | P.PN ---
Subjective Progress Note Date: 09/18/22 Faisal Andrade, is a 71 year old male who presented to [facility] emergency room with a chief complaint of severe shortness of breath, patient stated that he started having shortness of breath and cough 3-4 days prior to presentation and his symptom has been worsening. Patient was evaluated in the emergency room he was in acute respiratory distress he was started on BiPAP. He was evaluated in the emergency room vital examination on presentation revealed a temperature of 97.9 pulse 90 respiration 54 blood pressure 157/97 pulse ox 92% on BiPAP Laboratory data revealed a white blood count of 9.9 hemoglobin 13.7 platelet count 200 sodium 140 potassium 4.6 BUN 41 creatinine 2.29 troponin level 0.074 Testing in the emergency room revealed chest x-ray done in the emergency room revealed evidence of pulmonary venous congestion and the right lower lobe infiltrate as well as bilateral small pleural effusions, EKG revealed sinus rhythm with first-degree AV block and right bundle branch block Patient was admitted to medical floor for further evaluation and treatment, he was started on IV Lasix and IV antibiotics pulmonary consultation and cardiology consultation were requested On 09/06/2022 patient reports some improvement with shortness of breath. Patient remains on IV antibiotics Rocephin and azithromycin. Patient also maintained on IV Lasix. Cardiology and pulmonary services are following. Creatinine 2.82 and bun 47 this does appear chronic for patient will continue to monitor while patient is on IV Lasix. Patient denies chest pain. Patient does report some shortness of breast oh. Patient denies nausea vomiting or diarrhea. Patient denies any urinary burning or frequency On 09/07/2022 patient was seen and examined on the telemetry floor he is alert and oriented 3 in no apparent distress he is still complaining of shortness of breath and cough otherwise he denies any complaints there is no fever or chills no headache or dizziness no chest pain no nausea or vomiting no abdominal pain no diarrhea no blood in the stools no burning with urination no frequency or urgency and no hematuria. On 09/08/2022 patient was seen and examined on the medical floor he is alert and oriented 3 in no apparent distress he is still complaining of cough and shortness of breath with activity otherwise he denies any complaints there is no fever or chills no headache or dizziness no chest pain no nausea or vomiting no abdominal pain no diarrhea no blood in the stools no burning with urination no frequency or urgency and no hematuria. On 09/09/2022 patient was seen and examined on the medical floor, he is alert and oriented 3 in no apparent distress he is still complaining of severe shortness of breath with any activity otherwise he denies any complaints there is no fever or chills no headache or dizziness no chest pain, he has occasional cough no nausea or vomiting no abdominal pain no diarrhea no blood in the stools and no urinary symptoms, he is still maintained on IV Lasix, cardiology are following On 09/10/2022 patient was seen and examined on the medical floor, he is alert and oriented 3 in no he is still complaining of severe shortness of breath with any activity otherwise he denies any complaints there is no fever or chills no headache or dizziness no chest pain, he has occasional cough no nausea or vomiting no abdominal pain no diarrhea no blood in the stools and no urinary symptoms, he is still maintained on IV Lasix, cardiology and nephrology are following On 09/11/2022 patient was seen and examined on the telemetry floor he is alert and oriented 3 in no apparent distress IV Lasix was discontinued yesterday and patient was started on oral Lasix today he is complaining of worsening shortness of breath today otherwise he denies any complaints there is no fever or chills no headache or dizziness there is occasional cough no chest pain no nausea or vomiting no abdominal pain no diarrhea and no urinary symptoms. Plan is to continue with oral Lasix recheck chest x-ray and labs in a.m. possible discharge to home tomorrow if stable On 09/12/2022 patient was seen and examined on the telemetry floor he is alert and oriented 3 in no apparent distress this morning he was complaining of severe shortness of breath he was evaluated by nephrology and he was restarted on IV Lasix chest x-ray reveals worsening congestion and possible pneumonia at this time will discontinue Augmentin and start IV Rocephin and IV Zithromax continue with IV Lasix continue to follow closely Dr. Jacksno's group covering 09/13/2022 to 09/15/2022 I am resuming care on 09/16/2022 On 09/16/2022 patient is alert and oriented 3 Lasix has been changed to torsemide per nephrology services. Today patient has been changed over from IV Lasix to oral torsemide. Creatinine slightly increased today to 2.81. The patient denies chest pain. Patient reports improvement with shortness of breath. Patient denies nausea vomiting or diarrhea. Patient denies any urinary burning or frequency. Repeat labs in a.m. to assess kidney function On 09/17/2022 patient was seen and examined on the medical floor, he is alert and oriented 3 in no apparent distress he is still complaining of severe shortness of breath with any activity otherwise he denies any complaints there is no fever or chills no headache or dizziness no chest pain, he has occasional cough no nausea or vomiting no abdominal pain no diarrhea no blood in the stools and no urinary symptoms, he is still maintained on IV Lasix, cardiology are following On 09/18/2022 patient is alert and oriented 3. Creatinine increasing to 3.24 and bun 85. Discussed case with nephrology services Dr. Atkinson recommend patient staying another day for monitoring. Torsemide decreased repeat labs ordered in a.m. This was discussed with patient patient is agreeable at this time. Denies chest pain or shortness of breath. Patient denies nausea vomiting or diarrhea. Denies any urinary burning or frequency Objective - Vital Signs Vital signs: Vital Signs Temp 98.4 F 09/18/22 08:00 Pulse 70 09/18/22 11:15 Resp 20 09/18/22 11:15 BP 132/79 09/18/22 08:00 Pulse Ox 98 09/18/22 08:00 FiO2 30 09/18/22 08:33 Intake & Output 09/17/22 09/18/22 09/18/22 18:59 06:59 18:59 Intake Total 694 240 476 Output Total 1150 1400 400 Balance -456 -1160 76 Weight 103.6 kg 103.5 kg Intake: IV 100 Magnesium Sulfate-D5w Pmx 100 1 gm In Dextrose/Water 1 100ml.bag @ 100 mls/hr IVPB ONCE ONE Rx#: [id number] Oral 594 240 476 Output: Urine 850 900 400 Stool 300 500 Other: Voiding Method Urinal # Voids 2 - Exam In general patient is alert and oriented x 3 in no distress HEENT head normocephalic and atraumatic Neck is supple no JVD no goiter no lymphadenopathy no carotid bruit Chest examination revealed coarse crackles in both lung zhang no wheezing Cardiac exam reveals regular heart sounds S1 and S2 no gallops no murmurs Abdomen is soft nontender no organomegaly with normal bowel sounds Extremity exam reveals no edema no cyanosis or clubbing Neurological examination reveals no gross focal deficits - Labs CBC & Chem 7: 09/13/22 08:16 09/18/22 08:03 Labs: Abnormal Lab Results - Last 24 Hours (Table) 09/17/22 09/17/22 09/18/22 Range/Units 16:55 19:59 06:11 Potassium (3.5-5.1) mmol/L Chloride (98-107) mmol/L Carbon Dioxide (22-30) mmol/L BUN (9-20) mg/dL Creatinine (0.66-1.25) mg/dL Glucose (74-99) mg/dL POC Glucose (mg/dL) 248 H 202 H 140 H (70-110) mg/dL 09/18/22 09/18/22 Range/Units 08:03 11:42 Potassium 3.2 L (3.5-5.1) mmol/L Chloride 92 L (98-107) mmol/L Carbon Dioxide 36 H (22-30) mmol/L BUN 85 H (9-20) mg/dL Creatinine 3.24 H (0.66-1.25) mg/dL Glucose 183 H (74-99) mg/dL POC Glucose (mg/dL) 201 H (70-110) mg/dL Microbiology - Last 24 Hours (Table) 09/17/22 21:35 Sputum Culture - Preliminary Sputum Assessment and Plan Plan: Severe shortness of breath, with acute on chronic hypoxic respiratory failure Acute exacerbation of congestive heart failure with chest x-ray revealing evidence of pulmonary edema Underlying history of valvular heart disease, with history of aortic valve replacement in January 2015 Acute right lower lobe infiltrate suggestive of pneumonia Mild elevation in troponin level on presentation Underlying history of colon cancer status post surgery with ileostomy placement Underlying history of coronary artery disease with history of myocardial infarction in 2012 Underlying history of chronic kidney disease stage III Underlying history of insulin-dependent diabetes mellitus Underlying history of atrial fibrillation Underlying history of hypertension Underlying history of hyperlipidemia Underlying history of gout Acute on chronic kidney disease stage III IV Lasix has been transitioned to oral torsemide per nephrology Antibiotics DC'd per pulmonary Repeat labs in a.m. to assess kidney function
[2022-09-18 16:40] LABS: Glucose,Whole Blood 174 mg/dL (70-110)
--- NOTE | 2022-09-18 17:11 | P.PN ---
Subjective Progress Note Date: 09/18/22 The patient is seen today 09/06/2022 in follow-up on the selective care unit. He is currently sitting up at the bedside. Awake and alert in no acute distress. He is maintaining O2 saturations in the 90s on 2 L/m per nasal cannula. He has been utilizing CPAP at 13 cm water throughout the night. Norm al saline at KVO. Ultrasound of the kidneys revealed no evidence of hydronephrosis or masses. Bladder is not distended. White count 7.3. Hemoglobin 12.6. Sodium 138. Potassium 4.8. Chloride 100. Bicarb 30. BUN 47. Creatinine 2.82. Glucose 185. He is continued on IV diuretics Lasix 40 mg every 8 hours. Antibiotics in the form of ceftriaxone and azithromycin. Anticoagulated with Eliquis. The patient is seen today 09/07/2022 in follow-up on the selective care unit. He is currently sitting up in a chair at the bedside. Currently wearing his CPAP at 13 cm of water. He states he is feeling better. Otherwise he is maintaining good O2 saturations in the 90s on 2 L/m per nasal cannula. He has less crackles posterior. He remains in a negative balance of 3 L. Follow-up chest x-ray shows continued cardiomegaly and improving pulmonary venous congestion. There is persistent right perihilar and right lower lobe infiltrate. Patchy density in the left medial lung bases well. White count 8.0. He will then 12.9. Sodium 140. Potassium 4.2. BUN 50. Creatinine 2.65. He is continued on Augmentin. Continued on IV Lasix. The patient is seen today 09/09/2022 in follow-up on the selective care unit. He is currently wearing his CPAP at 13 cm of water. Utilizing it throughout the night. Otherwise maintaining good O2 saturations in the 90s on 2 L. He sitting up in a chair. Sodium 141. Potassium 3.8. BUN 51. Creatinine 2.37. He is continued on antibiotics in the form of Augmentin. Remains on IV diuretics. Anticoagulated with Eliquis. Progress note dated 09/10/2022. The patient is seen today in room 371. He sitting at the edge of the bed. He is on 3 L of oxygen. He is getting saline at 20 mL an hour. He uses CPAP throughout the night, at 13 cm water. Sometimes he'll use it in the daytime as well. Clinically, he is doing much better. He short of breath on exertion. The patient does have some lower extremity edema. He denies any chest pain or chest discomfort. He denies any cough, wheezing, or phlegm production. Sodium 144, potassium 3.7, chlorides 107, CO2 30, BUN 52, and creatinine 2.19. Glucose 112. Progress note dated 09/11/2022. The patient is again seen in room 371. He is sitting on the edge of the bed. He is on oxygen at 3 L. At nighttime, he uses his CPAP at 13 cm water. He sometimes uses CPAP during the daytime, when he naps. Clinically, the patient is improved, and could be considered for possible discharge in the near future. No new labs today other than a glucose of 139. No chest x-ray today to speak of. Progress note dated 09/12/2022. The patient is again seen in room 371. He is resting comfortably. He is on oxygen at 3 L. At nighttime, and sometimes during the daytime, he uses CPAP with a pressure setting of 13 cm of water. He's not receiving any IV fluids. His calcitonin level is low at 0.16. Antibiotics are discontinued. No new laboratory data today. From yesterday, his BUN was 59 and creatinine was 2.48. His CBC was normal. Progress note dated 09/15/2022. The patient is again seen in room 371. He is comfortable. He is on 3 L of oxygen the patient does uses CPAP at nighttime, and sometimes during the daytime as well. He states that his breathing is stable, and pretty much at baseline. He denies any cough, or phlegm production. He denies any chest pain or chest discomfort. His antibiotics were discontinued, because he had a very low pro- calcitonin level, and had nothing to suggest pneumonia or respiratory infection. Sodium 140, potassium 3.6, chlorides 96, CO2 32, anion gap 12, BUN 69, creatinine 2.72. 09/16/2022, the patient remains on 3 L oxygen by nasal cannula and overnight he is using his CPAP at a pressure of 13 cm of water. He is doing well. No specific complaints. Heart any mucus production. He shortness of breath is gradually improving. He was treated for a diastolic heart failure with an acute on top of chronic hypoxic respiratory failure. His pro calcitonin level was low and pneumonia was thought to be doubtful at that stage. I reviewed his charts. I noted that the patient was diabetes during this current admission. The most recent chest x-ray was done on 09/12/2022 and there was cardiomegaly and pulmonary vascular congestion and possible some consolidation of the right lung base. This is chronic and a repeat chest x-ray accordingly we will obtain for tomorrow. He has also some postthoracotomy changes. Blood work from today shows a sodium of 140, potassium of 3.3, bicarbonate of 33, BUN of 74 and a creatinine of 2.8 and the patient's creatinine has remained stable. The patient has been on anticoagulation with Eliquis 5 mg by mouth twice a day. He is on Levemir insulin for blood sugar control. I reviewed also a previous CAT scan of the chest from 2020 and showed cardiomegaly and pleural effusions. At that time, the patient lower lobe consolidation right more than left. There was extensive atherosclerotic vascular changes. His most recent echocardiogram that was done during this current admission showed a mild impai rment of LV function with inferobasilar hypokinesis. He had bioprosthetic aortic valve with severe calcification and severe aortic stenosis and mild aortic regurgitation. He also has severe mitral annulus calcification with moderate to severe regurgitation. As such, he does have significant valvular heart disease. His ejection fraction is around 50-55% On today's evaluation of 09/17/2022, the patient is stable. The patient remains on oxygen at 3 L/m nasal cannula. The patient is also using CPAP overnight at a pressure of 13 cm of water. The patient remains on Demadex 40 mg by mouth lakia ly. Chest x-ray findings are stable and unchanged and the patient continues to have persistent interstitial pattern a more confluent density in the right middle and right lower lobe and this could be assessed related to CHF/asymmetric edema/pneumonia. I do favor asymmetric pulmonary edema. Pneumonia is felt to be less likely. The patient's is doing well for the most part. His renal function continues to be stable since yesterday with a BUN of 78 and a creatinine of 2.8 and sodium levels of 138. Pro-calcitonin level from 09/13/2022 was essentially low at 0.16. Previous CAT scan of the chest from 2020 showed cardiomegaly and pleural effusions. The patient also had consolidation of the lung for the lung bases right more than left. He has no significant valvular heart disease and the patient has an ejection fraction of 50-55%. He does have over bioprosthetic aortic valve severe calcification and stenosis with mild regurgitation and mitral valve calcification with moderate to severe degree of regurgitation. His left ventricular ejection fraction is preserved at 50-55%. On 09/15/2022, the patient is essentially unchanged. Doing well. He is condition is stable. No fever. He is on oxygen at 3 L. Is using the CPAP overnight. There has been some increase in his creatinine and renal function is worse and based on that the patient's torsemide dose was up to 20 mg on a daily basis and repeat labs were ordered For tomorrow. For that reason his discharge was held. Objective - Vital Signs Vital signs: Vital Signs Temp 98.4 F 09/18/22 08:00 Pulse 70 09/18/22 11:15 Resp 20 09/18/22 11:15 BP 132/79 09/18/22 08:00 Pulse Ox 98 09/18/22 08:00 FiO2 30 09/18/22 08:33 Intake & Output 09/17/22 09/18/22 09/18/22 18:59 06:59 18:59 Intake Total 694 240 118 Output Total 1150 1400 400 Balance -456 -8857 -190 Weight 103.6 kg 103.5 kg Intake: IV 100 Magnesium Sulfate-D5w Pmx 100 1 gm In Dextrose/Water 1 100ml.bag @ 100 mls/hr IVPB ONCE ONE Rx#: [id number] Oral 594 240 118 Output: Urine 850 900 400 Stool 300 500 Other: Voiding Method Urinal # Voids 2 - Exam No acute distress, oriented 3. No conversational dyspnea or use of accessory muscles. The patient's on 3 L of oxygen. HEENT examination is grossly unremarkable. Neck supple. Full range of motion. No adenopathy thyromegaly or neck vein distention. Cardiovascular examination reveals regular rhythm rate. S1-S2 normal. No S3 or S4. No discernible murmur noted. Heart sounds are distant. Heart rate 84 bpm. Lungs reveal bibasilar crackles. Breath sounds equal. No wheezes or rhonchi. Saturations are 94 %. Abdomen soft bowel sounds are heard. No masses or tenderness. Extremities reveal mild edema. No cyanosis or clubbing. Mild edema noted. Skin is without rash or lesion. Neurologic examination is brief but nonfocal. - Labs CBC & Chem 7: 09/13/22 08:16 09/18/22 08:03 Labs: Abnormal Lab Results - Last 24 Hours (Table) 09/17/22 09/17/22 09/18/22 Range/Units 16:55 19:59 06:11 Potassium (3.5-5.1) mmol/L Chloride (98-107) mmol/L Carbon Dioxide (22-30) mmol/L BUN (9-20) mg/dL Creatinine (0.66-1.25) mg/dL Glucose (74-99) mg/dL POC Glucose (mg/dL) 248 H 202 H 140 H (70-110) mg/dL 09/18/22 09/18/22 Range/Units 08:03 11:42 Potassium 3.2 L (3.5-5.1) mmol/L Chloride 92 L (98-107) mmol/L Carbon Dioxide 36 H (22-30) mmol/L BUN 85 H (9-20) mg/dL Creatinine 3.24 H (0.66-1.25) mg/dL Glucose 183 H (74-99) mg/dL POC Glucose (mg/dL) 201 H (70-110) mg/dL Microbiology - Last 24 Hours (Table) 09/17/22 21:35 Sputum Culture - Preliminary Sputum Assessment and Plan Plan: Acute hypoxemic respiratory failure secondary to chronic diastolic congestive heart failure. The patient is currently on 3 L of oxygen by nasal cannula, clinically stable. No interval worsening oxygenation. Chest exit finding also stable. Consider interstitial edema/asymmetric pulmonary edema over infection or malignancy. Chronic right lower lobe consolidation, going back to 2020, based on previous x- rays of the chest and previous CT of the chest. Moderate-severe aortic valve stenosis/bioprosthetic aortic valve and moderate degree of mitral valve regurgitation. The patient undergone previous aortic valve replacement and the patient has ongoing valvular dysfunction. Chronic kidney disease. The creatinine is worse today and the creatinine is up to 3.24 Paroxysmal atrial fibrillation. Type 2 diabetes. Dyslipidemia. Obstructive sleep apnea syndrome, maintained on CPAP at 13 cm of water. Hypothyroidism. History of bowel resection and ileostomy. Plan: Continue Demadex at a lower dose of 20 mg and monitor renal function Continue anticoagulation with Eliquis Continue CPAP therapy, at 13 cm of water Home oxygen at 2 L We'll continue to follow Monitor renal function Increase mobility We will followon as-needed basis
[2022-09-18 20:09] LABS: Glucose,Whole Blood 224 mg/dL (70-110)
[2022-09-18] MEDS: CYCLOBENZAPRINE 10 MG TAB PO SCH (20:49)
[2022-09-18] MEDS: LATANOPROST 0.005% OPHTH DROPS 2.5 ML BTL BOTH EYES SCH (20:49)
[2022-09-18 22:48] LABS: Glucose,Whole Blood 173 mg/dL (70-110)
[2022-09-18] MEDS: INSULIN DETEMIR (LEVEMIR) 100 UNIT/ML SYR SQ SCH (22:49)
[2022-09-19 06:17] LABS: Glucose,Whole Blood 122 mg/dL (70-110)
[2022-09-19] MEDS: INSULIN ASPART (NovoLOG) 100 UNIT/ML VIAL SQ SCH ×5 (06:23→21:42)
[2022-09-19] MEDS: PANTOPRAZOLE 40 MG TABLET PO SCH (06:26)
[2022-09-19 08:55] LABS: Magnesium 1.9 mg/dL (1.6-2.3); Potassium 3.3 mmol/L (3.5-5.1)
[2022-09-19] MEDS: DILTIAZEM ORAL 30 MG TAB PO SCH ×3 (09:16→22:33)
[2022-09-19] MEDS: FENOFIBRATE 160 MG TAB PO SCH (09:16)
[2022-09-19] MEDS: METOPROLOL SUCCINATE (ER) 25 MG TAB.ER.24H PO SCH ×2 (09:16→21:40)
[2022-09-19] MEDS: APIXABAN 5 MG TAB PO SCH ×2 (09:16→21:41)
[2022-09-19] MEDS: TORSEMIDE 20 MG TAB PO SCH (09:17)
[2022-09-19] MEDS: MAGNESIUM OXIDE 400 MG TAB PO SCH ×2 (09:17→21:41)
[2022-09-19] MEDS: HYDROcodone/APAP 10-325MG 1 EACH TAB PO SCH ×3 (09:17→22:33)
[2022-09-19] MEDS: POTASSIUM CHLORIDE ER 10 MEQ TAB.ER.PRT PO SCH ×2 (09:17→21:41)
[2022-09-19] MEDS: PRAVASTATIN SODIUM 20 MG TAB PO SCH (09:17)
[2022-09-19] MEDS ORDERED: POTASSIUM CHLORIDE ER 20 MEQ TAB.ER PO STA (09:25)
--- NOTE | 2022-09-19 10:27 | P.PN ---
Subjective Patient is seen in follow-up for chronic kidney disease. Renal function stable. Maintained on torsemide - dose was decreased yesterday. Good urine output. Edema improving. Currently on nasal cannula. Oral intake is good. Blood pressure stable. No active complaints. Vital signs are stable. General: No acute distress. HEENT: Head exam is unremarkable. On nasal cannula. LUNGS: Breath sounds decreased. HEART: Rate and Rhythm are regular. ABDOMEN: Soft, obese. Colostomy noted. EXTREMITITES: 1+ edema. Objective - Vital Signs Vital signs: Vital Signs Temp 97.6 F 09/19/22 04:00 Pulse 75 09/19/22 09:08 Resp 16 09/19/22 09:08 BP 136/77 09/19/22 09:08 Pulse Ox 94 L 09/19/22 09:08 FiO2 30 09/19/22 04:00 Intake & Output 09/18/22 09/19/22 09/19/22 18:59 06:59 18:59 Intake Total 834 400 Output Total 970 1350 250 Balance -136 -950 -250 Intake: Oral 834 400 Output: Urine 970 1200 150 Stool 150 100 Other: Voiding Method Urinal # Bowel Movements 350 - Labs CBC & Chem 7: 09/13/22 08:16 09/19/22 08:16 Labs: Abnormal Lab Results - Last 24 Hours (Table) 09/18/22 09/18/22 09/18/22 Range/Units 11:42 16:36 20:07 Potassium (3.5-5.1) mmol/L Chloride (98-107) mmol/L Carbon Dioxide (22-30) mmol/L BUN (9-20) mg/dL Creatinine (0.66-1.25) mg/dL Glucose (74-99) mg/dL POC Glucose (mg/dL) 201 H 174 H 224 H (70-110) mg/dL 09/18/22 09/19/22 09/19/22 Range/Units 22:46 06:15 08:16 Potassium 3.3 L (3.5-5.1) mmol/L Chloride 92 L (98-107) mmol/L Carbon Dioxide 36 H (22-30) mmol/L BUN 91 H (9-20) mg/dL Creatinine 3.21 H (0.66-1.25) mg/dL Glucose 172 H (74-99) mg/dL POC Glucose (mg/dL) 173 H 122 H (70-110) mg/dL Microbiology - Last 24 Hours (Table) 09/17/22 21:35 Gram Stain - Preliminary Sputum Sputum Culture - Preliminary Assessment and Plan Plan: Assessment: 1. Acute kidney injury mostly prerenal secondary to cardiorenal syndrome. Renal function worsened from diuresis - cr stable at 3.21 today. today. No hydronephrosis noted on kidney ultrasound. UA fairly benign. 2. Chronic kidney disease stage IV secondary to nephrosclerosis with baseline creatinine in the range of 2-3 over the last year. 3. Volume overload. Improved with diuresis. 4. Acute on chronic diastolic CHF with moderate to severe tricuspid regurg itation, moderate mitral regurgitation and severe pulmonary hypertension. 5. Diabetes mellitus. 6. History of A. fib. 7. Hypokalemia from diuresis. 8. Mild hypomagnesemia from diuresis and GI losses. Replaced. Better. Plan: Maintain torsemide 20 mg once daily. Replace potassium. Maintain maintenance potassium supplementation. Low-salt diet. 1500 mL fluid restriction. Continue to monitor renal function and urine output. Repeat BMP and magnesium level 2-3 days postdischarge. Follow up outpatient in 1 week. Patient advised to monitor his weight closely at home and to notify physician immediately if develops worsening edema or weight gain of more than 3 pounds in 1 week duration.
[2022-09-19 11:50] LABS: Glucose,Whole Blood 222 mg/dL (70-110)
--- NOTE | 2022-09-19 14:30 | P.PN ---
Subjective Progress Note Date: 09/19/22 Faisal Andrade, is a 71 year old male who presented to [facility] emergency room with a chief complaint of severe shortness of breath, patient stated that he started having shortness of breath and cough 3-4 days prior to presentation and his symptom has been worsening. Patient was evaluated in the emergency room he was in acute respiratory distress he was started on BiPAP. He was evaluated in the emergency room vital examination on presentation revealed a temperature of 97.9 pulse 90 respiration 54 blood pressure 157/97 pulse ox 92% on BiPAP Laboratory data revealed a white blood count of 9.9 hemoglobin 13.7 platelet count 200 sodium 140 potassium 4.6 BUN 41 creatinine 2.29 troponin level 0.074 Testing in the emergency room revealed chest x-ray done in the emergency room revealed evidence of pulmonary venous congestion and the right lower lobe infiltrate as well as bilateral small pleural effusions, EKG revealed sinus rhythm with first-degree AV block and right bundle branch block Patient was admitted to medical floor for further evaluation and treatment, he was started on IV Lasix and IV antibiotics pulmonary consultation and cardiology consultation were requested On 09/06/2022 patient reports some improvement with shortness of breath. Patient remains on IV antibiotics Rocephin and azithromycin. Patient also maintained on IV Lasix. Cardiology and pulmonary services are following. Creatinine 2.82 and bun 47 this does appear chronic for patient will continue to monitor while patient is on IV Lasix. Patient denies chest pain. Patient does report some shortness of breast oh. Patient denies nausea vomiting or diarrhea. Patient denies any urinary burning or frequency On 09/07/2022 patient was seen and examined on the telemetry floor he is alert and oriented 3 in no apparent distress he is still complaining of shortness of breath and cough otherwise he denies any complaints there is no fever or chills no headache or dizziness no chest pain no nausea or vomiting no abdominal pain no diarrhea no blood in the stools no burning with urination no frequency or urgency and no hematuria. On 09/08/2022 patient was seen and examined on the medical floor he is alert and oriented 3 in no apparent distress he is still complaining of cough and shortness of breath with activity otherwise he denies any complaints there is no fever or chills no headache or dizziness no chest pain no nausea or vomiting no abdominal pain no diarrhea no blood in the stools no burning with urination no frequency or urgency and no hematuria. On 09/09/2022 patient was seen and examined on the medical floor, he is alert and oriented 3 in no apparent distress he is still complaining of severe shortness of breath with any activity otherwise he denies any complaints there is no fever or chills no headache or dizziness no chest pain, he has occasional cough no nausea or vomiting no abdominal pain no diarrhea no blood in the stools and no urinary symptoms, he is still maintained on IV Lasix, cardiology are following On 09/10/2022 patient was seen and examined on the medical floor, he is alert and oriented 3 in no he is still complaining of severe shortness of breath with any activity otherwise he denies any complaints there is no fever or chills no headache or dizziness no chest pain, he has occasional cough no nausea or vomiting no abdominal pain no diarrhea no blood in the stools and no urinary symptoms, he is still maintained on IV Lasix, cardiology and nephrology are following On 09/11/2022 patient was seen and examined on the telemetry floor he is alert and oriented 3 in no apparent distress IV Lasix was discontinued yesterday and patient was started on oral Lasix today he is complaining of worsening shortness of breath today otherwise he denies any complaints there is no fever or chills no headache or dizziness there is occasional cough no chest pain no nausea or vomiting no abdominal pain no diarrhea and no urinary symptoms. Plan is to continue with oral Lasix recheck chest x-ray and labs in a.m. possible discharge to home tomorrow if stable On 09/12/2022 patient was seen and examined on the telemetry floor he is alert and oriented 3 in no apparent distress this morning he was complaining of severe shortness of breath he was evaluated by nephrology and he was restarted on IV Lasix chest x-ray reveals worsening congestion and possible pneumonia at this time will discontinue Augmentin and start IV Rocephin and IV Zithromax continue with IV Lasix continue to follow closely Dr. Jackson's group covering 09/13/2022 to 09/15/2022 I am resuming care on 09/16/2022 On 09/16/2022 patient is alert and oriented 3 Lasix has been changed to torsemide per nephrology services. Today patient has been changed over from IV Lasix to oral torsemide. Creatinine slightly increased today to 2.81. The patient denies chest pain. Patient reports improvement with shortness of breath. Patient denies nausea vomiting or diarrhea. Patient denies any urinary burning or frequency. Repeat labs in a.m. to assess kidney function On 09/17/2022 patient was seen and examined on the medical floor, he is alert and oriented 3 in no apparent distress he is still complaining of severe shortness of breath with any activity otherwise he denies any complaints there is no fever or chills no headache or dizziness no chest pain, he has occasional cough no nausea or vomiting no abdominal pain no diarrhea no blood in the stools and no urinary symptoms, he is still maintained on IV Lasix, cardiology are following On 09/18/2022 patient is alert and oriented 3. Creatinine increasing to 3.24 and bun 85. Discussed case with nephrology services Dr. Atkinson recommend patient staying another day for monitoring. Torsemide decreased repeat labs ordered in a.m. This was discussed with patient patient is agreeable at this time. Denies chest pain or shortness of breath. Patient denies nausea vomiting or diarrhea. Denies any urinary burning or frequency On 09/19/2022 patient was seen and examined on the medical floor he is alert and oriented 3 in no apparent distress he reports some improvement in his shortness of breath otherwise he denies any complaints there is no fever or chills no headache or dizziness no chest pain no nausea or vomiting no abdominal pain no diarrhea and no urinary symptoms Objective - Vital Signs Vital signs: Vital Signs Temp 97.6 F 09/19/22 04:00 Pulse 59 L 09/19/22 04:00 Resp 17 09/19/22 04:00 BP 129/81 09/19/22 04:00 Pulse Ox 96 09/19/22 08:03 FiO2 30 09/19/22 04:00 Intake & Output 09/18/22 09/19/22 09/19/22 18:59 06:59 18:59 Intake Total 834 400 Output Total 970 1350 Balance -136 -950 Intake: Oral 834 400 Output: Urine 970 1200 Stool 150 Other: Voiding Method Urinal # Bowel Movements 350 - Exam In general patient is alert and oriented x 3 in no distress HEENT head normocephalic and atraumatic Neck is supple no JVD no goiter no lymphadenopathy no carotid bruit Chest examination revealed coarse crackles in both lung zhang no wheezing Cardiac exam reveals regular heart sounds S1 and S2 no gallops no murmurs Abdomen is soft nontender no organomegaly with normal bowel sounds Extremity exam reveals no edema no cyanosis or clubbing Neurological examination reveals no gross focal deficits - Labs CBC & Chem 7: 09/13/22 08:16 09/19/22 08:16 Labs: Abnormal Lab Results - Last 24 Hours (Table) 09/18/22 09/18/22 09/18/22 Range/Units 08:03 11:42 16:36 Potassium 3.2 L (3.5-5.1) mmol/L Chloride 92 L (98-107) mmol/L Carbon Dioxide 36 H (22-30) mmol/L BUN 85 H (9-20) mg/dL Creatinine 3.24 H (0.66-1.25) mg/dL Glucose 183 H (74-99) mg/dL POC Glucose (mg/dL) 201 H 174 H (70-110) mg/dL 09/18/22 09/18/22 09/19/22 Range/Units 20:07 22:46 06:15 Potassium (3.5-5.1) mmol/L Chloride (98-107) mmol/L Carbon Dioxide (22-30) mmol/L BUN (9-20) mg/dL Creatinine (0.66-1.25) mg/dL Glucose (74-99) mg/dL POC Glucose (mg/dL) 224 H 173 H 122 H (70-110) mg/dL 09/19/22 Range/Units 08:16 Potassium 3.3 L (3.5-5.1) mmol/L Chloride 92 L (98-107) mmol/L Carbon Dioxide 36 H (22-30) mmol/L BUN 91 H (9-20) mg/dL Creatinine 3.21 H (0.66-1.25) mg/dL Glucose 172 H (74-99) mg/dL POC Glucose (mg/dL) (70-110) mg/dL Microbiology - Last 24 Hours (Table) 09/17/22 21:35 Sputum Culture - Preliminary Sputum Assessment and Plan Plan: Severe shortness of breath, with acute on chronic hypoxic respiratory failure Acute exacerbation of congestive heart failure with chest x-ray revealing evidence of pulmonary edema Underlying history of valvular heart disease, with history of aortic valve replacement in January 2015 Acute right lower lobe infiltrate suggestive of pneumonia Mild elevation in troponin level on presentation Underlying history of colon cancer status post surgery with ileostomy placement Underlying history of coronary artery disease with history of myocardial infarction in 2012 Underlying history of chronic kidney disease stage III Underlying history of insulin-dependent diabetes mellitus Underlying history of atrial fibrillation Underlying history of hypertension Underlying history of hyperlipidemia Underlying history of gout Acute on chronic kidney disease stage III IV Lasix has been transitioned to oral torsemide per nephrology Antibiotics DC'd per pulmonary Repeat labs in a.m. to assess kidney function
[2022-09-19 16:46] LABS: Glucose,Whole Blood 334 mg/dL (70-110)
[2022-09-19 20:08] LABS: Glucose,Whole Blood 250 mg/dL (70-110)
[2022-09-19] MEDS: CYCLOBENZAPRINE 10 MG TAB PO SCH (21:41)
[2022-09-19] MEDS: LATANOPROST 0.005% OPHTH DROPS 2.5 ML BTL BOTH EYES SCH (21:42)
[2022-09-19 22:35] LABS: Glucose,Whole Blood 178 mg/dL (70-110)
[2022-09-19] MEDS: INSULIN DETEMIR (LEVEMIR) 100 UNIT/ML SYR SQ SCH (22:35)
[2022-09-20 06:08] LABS: Glucose,Whole Blood 141 mg/dL (70-110)
[2022-09-20] MEDS: INSULIN ASPART (NovoLOG) 100 UNIT/ML VIAL SQ SCH ×2 (06:14→12:24)
[2022-09-20] MEDS: PANTOPRAZOLE 40 MG TABLET PO SCH (06:45)
[2022-09-20] MEDS: MAGNESIUM OXIDE 400 MG TAB PO SCH (09:23)
[2022-09-20] MEDS: POTASSIUM CHLORIDE ER 10 MEQ TAB.ER.PRT PO SCH (09:24)
[2022-09-20] MEDS: DILTIAZEM ORAL 30 MG TAB PO SCH (09:24)
[2022-09-20] MEDS: APIXABAN 5 MG TAB PO SCH (09:24)
[2022-09-20] MEDS: FENOFIBRATE 160 MG TAB PO SCH (09:24)
[2022-09-20] MEDS: PRAVASTATIN SODIUM 20 MG TAB PO SCH (09:24)
[2022-09-20] MEDS: METOPROLOL SUCCINATE (ER) 25 MG TAB.ER.24H PO SCH (09:24)
[2022-09-20] MEDS: TORSEMIDE 20 MG TAB PO SCH (09:24)
[2022-09-20] MEDS: HYDROcodone/APAP 10-325MG 1 EACH TAB PO SCH (09:26)
--- NOTE | 2022-09-20 11:37 | P.PN ---
Subjective Patient is seen in follow-up for chronic kidney disease. Renal function fairly stable as of yesterday. Maintained on torsemide. Good urine output. Edema improving. Currently on 2 L nasal cannula. Oral intake is good. Blood pressure stable. No active complaints. Vital signs are stable. General: No acute distress. HEENT: Head exam is unremarkable. On nasal cannula. LUNGS: Breath sounds decreased. HEART: Rate and Rhythm are regular. ABDOMEN: Soft, obese. Colostomy noted. EXTREMITITES: 1+ edema. Objective - Vital Signs Vital signs: Vital Signs Temp 97.7 F 09/20/22 04:45 Pulse 63 09/20/22 04:45 Resp 17 09/20/22 04:45 BP 119/59 09/20/22 04:45 Pulse Ox 96 09/20/22 04:45 FiO2 21 09/20/22 03:22 Intake & Output 09/19/22 09/20/22 09/20/22 18:59 06:59 18:59 Intake Total 236 237 480 Output Total 1425 1220 Balance -1189 -983 480 Weight 102.6 kg Intake: Oral 236 237 480 Output: Urine 1000 920 Stool 425 300 Other: Voiding Method Urinal # Voids 2 - Labs CBC & Chem 7: 09/13/22 08:16 09/19/22 08:16 Labs: Abnormal Lab Results - Last 24 Hours (Table) 09/19/22 09/19/22 09/19/22 Range/Units 11:49 16:44 20:06 POC Glucose (mg/dL) 222 H 334 H 250 H (70-110) mg/dL 09/19/22 09/20/22 Range/Units 22:33 06:06 POC Glucose (mg/dL) 178 H 141 H (70-110) mg/dL Microbiology - Last 24 Hours (Table) 09/17/22 21:35 Gram Stain - Preliminary Sputum Sputum Culture - Preliminary Candice albicans Assessment and Plan Plan: Assessment: 1. Acute kidney injury mostly prerenal secondary to cardiorenal syndrome. Renal function worsened from diuresis - cr stable at 3.21 yesterday. No hydronephrosis noted on kidney ultrasound. UA fairly benign. 2. Chronic kidney disease stage IV secondary to nephrosclerosis with baseline creatinine in the range of 2-3 over the last year. 3. Volume overload. Improved with diuresis. 4. Acute on chronic diastolic CHF with moderate to severe tricuspid regurgitation, moderate mitral regurgitation and severe pulmonary hypertension. 5. Diabetes mellitus. 6. History of A. fib. 7. Hypokalemia from diuresis. Replaced. 8. Mild hypomagnesemia from diuresis and GI losses. Replaced. Improved. Plan: Maintain torsemide 20 mg once daily. Maintain maintenance potassium supplementation. Low-salt diet. 1500 mL fluid restriction. Continue to monitor renal function and urine output. Repeat BMP and magnesium level 2-3 days postdischarge. Follow up outpatient in 1 week. Patient advised to monitor his weight closely at home and to notify physician immediately if develops worsening edema or weight gain of more than 3 pounds in 1 week duration.
[2022-09-20 11:40] VITALS: RESP 16; TEMP 97.9
[2022-09-20 11:51] LABS: Glucose,Whole Blood 271 mg/dL (70-110)
[2022-09-20 14:04] VITALS: BP 121/63; PULSE 65
== END 2022-09-20 12:59 | disposition home or self-care (01) | DRG 291 ==
LOC: EC 14:18 → 3SCARD 15:48
PROVIDERS: ADMIT Internal Medicine; ATTEND Internal Medicine
PROC: 5A09357 Assistance with Respiratory Ventilation, Less than 24 Consecutive Hours, Continuous Positive Airway Pressure (ICD-10-PCS; principal; 2022-09-04)
DX: I13.0 Hypertensive heart and chronic kidney disease with heart failure and stage 1 through stage 4 chronic kidney disease, or unspecified chronic kidney disease (principal); I50.33 Acute on chronic diastolic (congestive) heart failure; J96.21 Acute and chronic respiratory failure with hypoxia; N17.9 Acute kidney failure, unspecified; I48.19 Other persistent atrial fibrillation; N18.4 Chronic kidney disease, stage 4 (severe); I27.20 Pulmonary hypertension, unspecified; E11.42 Type 2 diabetes mellitus with diabetic polyneuropathy; E11.22 Type 2 diabetes mellitus with diabetic chronic kidney disease; E03.9 Hypothyroidism, unspecified; I08.3 Combined rheumatic disorders of mitral, aortic and tricuspid valves; E66.9 Obesity, unspecified; E11.65 Type 2 diabetes mellitus with hyperglycemia; Z68.38 Body mass index [BMI] 38.0-38.9, adult; Z79.01 Long term (current) use of anticoagulants; Z95.3 Presence of xenogenic heart valve; T50.1X6A Underdosing of loop [high-ceiling] diuretics, initial encounter; E78.5 Hyperlipidemia, unspecified; G47.33 Obstructive sleep apnea (adult) (pediatric); Z90.49 Acquired absence of other specified parts of digestive tract; R77.8 Other specified abnormalities of plasma proteins; E87.6 Hypokalemia; I25.10 Atherosclerotic heart disease of native coronary artery without angina pectoris; I45.10 Unspecified right bundle-branch block; I44.0 Atrioventricular block, first degree; E83.42 Hypomagnesemia; Z28.310 Unvaccinated for COVID-19; Z85.038 Personal history of other malignant neoplasm of large intestine; Z86.711 Personal history of pulmonary embolism; Z91.120 Patient's intentional underdosing of medication regimen due to financial hardship; Z79.899 Other long term (current) drug therapy; Z79.4 Long term (current) use of insulin; Z79.84 Long term (current) use of oral hypoglycemic drugs; Z88.8 Allergy status to other drugs, medicaments and biological substances; I25.2 Old myocardial infarction; Z86.73 Personal history of transient ischemic attack (TIA), and cerebral infarction without residual deficits; Z93.3 Colostomy status
CPT/HCPCS: 36415; 71045; 71046; 76770; 80048; 80053; 81003; 83036; 83605; 83735; 83880; 84145; 84484; 85025; 85610; 85730; 87070; 87205; 93005; 93306; 94660; 94760; 96374; 99291